=== PATIENT | female | born 1965 | race Caucasian/White ===

== ENCOUNTER 2017-08-07 17:56 | Inpatient (IN) | payer OTHER ==
[2017-08-07] MEDS ORDERED: RSI MEDICATION KIT IV ONE (18:00)
[2017-08-07] MEDS ORDERED: PROPOFOL 1,000 MG/100 ML VIAL IV ONE (18:55)
[2017-08-07 18:57] LABS: Arterial Blood Carboxyhemoglob 1.3 % (0-1.5); Blood Gas Oxyhemoglobin 98.7 % (94-97)
[2017-08-07 18:59] LABS: Urine Blood TRACE (NEG); Urine Glucose NEGATIVE (NEG); Urine Protein NEGATIVE (NEG); Urine pH 6.5 (5.0-7.0)
[2017-08-07 19:10] LABS: Absolute Lymphocytes (CBC) 0.9 K/uL (0.7-4.9); Absolute Monocytes 0.3 K/uL (0.1-1.3); Absolute Neutrophil 2.1 K/uL (1.8-8.0); Eosinophils % 4.5 % (0-4.4); Lymphocytes % 26.4 % (15.3-44.8); MCV 93.1 fL (80-100); MPV 9.4 fL (7.6-11.3); Monocytes % 9.4 % (3.3-12.3); RBC Red Blood Cell Count 3.01 M/uL (3.86-4.86)
[2017-08-07 19:12] LABS: Protime INR 1.16
[2017-08-07 19:21] LABS: Potassium 4.9 mEq/L (3.6-5.0)
[2017-08-07 19:27] LABS: Albumin 2.7 g/dL (3.2-5.5); Bilirubin Direct 0.8 mg/dL (0-0.2); Bilirubin Total 1.8 mg/dL (0.3-1.2); Protein, Total 6.4 g/dL (6.0-8.3)
--- NOTE | 2017-08-07 19:27 | RAD REPORT ---
EXAM DESCRIPTION: RAD - Chest Single View - 08/07/2017 6:46 pm CLINICAL HISTORY: Found unresponsive, intubation COMPARISON: September 2016 TECHNIQUE: AP portable chest image was obtained 1840 hours . FINDINGS: Endotracheal tube is in place T4 level top of the aortic arch. This is several cm above th e mona. Lung volumes are low. Resuscitation paddles overlie the upper right chest and lateral left abdomen. No pulmonary edema, infiltrate or acute lung parenchymal process. No failure or volume overl oad suspected. Heart size and vasculature within normal limits for portable imaging. No measurable pl eural effusion and no pneumothorax. No gross bony abnormality seen. No acute aortic findings suspecte d. IMPRESSION: Shallow inspiration film showing no pulmonary edema, failure or significant lung parench ymal process. ET tube in good position. NG tube is also in place but is more difficult to visualize.
--- NOTE | 2017-08-07 19:44 | RAD REPORT ---
EXAM DESCRIPTION: CT - Head Brain Wo Cont - 08/07/2017 7:31 pm CLINICAL HISTORY: Found unresponsive, altered mental status COMPARISON: May 2016 TECHNIQUE: Axial 5 mm thick images of the head were obtained without IV contrast. All CT scans are performed using dose optimization technique as appropriate and may include automated exposure control or mA/KV adjustment according to patient size. FINDINGS: No intracranial hemorrhage, mass, edema or shift of mid-line structures. No acute cortical based infarction. No cortical edema or sulcal effacement seen. Volume loss changes are present along with chronic ischemic change. Findings are stable but more pronounced than typically seen for a luis ent this age. No abnormal extra-axial fluid collections. Ventricles are in proportion to volume loss. Mastoid air cells are clear. There is complete opacification of the right maxillary sinus with the et hmoid and sphenoid sinus is mostly opacified. Left-side frontal sinus is opacified. No expansile or d estructive changes seen. No acute bony findings. IMPRESSION: No hemorrhage, edema or acute intracranial finding. Chronic ischemic change and atrophy changes are present stable from 2016 but greater than typically s een for a patient this age. Extensive paranasal sinus disease without expansile or destructive component.
[2017-08-07 19:46] LABS: Blood Morphology Comment NOT SEEN (NOT SEEN); Platelet Estimate DECR; Urine White Blood Cell Casts OK
[2017-08-07 19:55] LABS: Urine Bacteria LOADED /HPF (<20); Urine Culture Reflex Order REFLEXED; Urine RBC <5 /HPF (NONE SEEN)
[2017-08-07] MEDS ORDERED: LACTULOSE 20 GM/30 ML UCUP ONE (20:15)
--- NOTE | 2017-08-07 20:18 | ER ---
Nurse's Notes [facility] Name: Ernestina Mackay Age: 51 yrs Sex: Female : 1965 Arrival Date: 08/07/2017 Time: 17:59 Bed 3 Private MD: Diagnosis: Urinary tract infection, site not specified;Hepatic Encephalopathy Presentation: 08/07 18:55 Presenting complaint: EMS states: patient was found unresponsive in her room ae1 unresponsive at [facility]. Last seen normal is unknown, patient is usually A \\T\\ O x3 and ambulatory. Transition of care: [facility]. Onset of symptoms is unknown. Care prior to arrival: Medication(s) given: 0.5 mg atropine, 5 mg Versed. 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 ak1 Historical: - Allergies: 19:03 No Known Allergies; ae1 - Home Meds: 19:23 Aldactone 25 mg Oral tab 1 tab 2 times per day [Active]; ascorbic acid (vitamin C) 500 ae1 mg tab twice a day [Active]; Cymbalta 60 mg Oral cpDR 1 cap twice a day [Active]; famotidine 20 mg Oral tab 1 tab once daily [Active]; furosemide 20 mg Oral tab 1 tab 2 times per day [Active]; gabapentin 300 mg Oral cap 1 cap twice a day [Active]; Humalog sliding scale Sub-Q [Active]; lactulose 10 gram/15 mL (15 mL) Oral soln 30 mL 3 times per day [Active]; Lantus 100 unit/mL Sub-Q soln 30 units [Active]; magnesium oxide 400 mg Oral cap 800 mg twice a day [Active]; multivitamin with minerals Oral tab daily [Active]; neomycin 500 mg Oral tab 3 tabs 2 times per day [Active]; propranolol 20 mg Oral tab 1 tab 3 times per day [Active]; Tradjenta 5 mg Oral tab 1 tab once daily [Active]; Vitamin D2 50,000 unit Oral cap 1 cap once daily [Active]; - PMHx: 19:23 Anxiety; Cellulitis; CHF; Chronic pain; Cirrhosis; Depression; Diabetes - NIDDM; ae1 Hepatitis; Hypertension; insomnia; - Immunization history:: Adult Immunizations unknown. - Social history:: Smoking status: unknown. Screenin:24 Abuse screen: Denies threats or abuse. Nutritional screening: No deficits noted. ae1 Tuberculosis screening: No symptoms or risk factors identified. Fall Risk. Assessment: 17:53 General: Appears obese, unkempt, Behavior is unresponsive. Smells of urine. Pain: ae1 Unable to use pain scale. Patient is unresponsive. Neuro: Level of Consciousness is unresponsive. Cardiovascular: Heart tones S1 S2 present Patient's skin is warm and dry. Rhythm is regular. Respiratory: Airway is compromised Respiratory effort is even, unlabored, shallow, Respiratory pattern is regular, Breath sounds with crackles bilaterally. Breath sounds are diminished bilaterally. GI: Abdomen is obese, Bowel sounds present X 4 quads. : Urine is ashely urine. EENT: Oral mucosa is dry. Poor dentition noted. Derm: Skin is reddened and "chaffed" in KERLINE pelvic region. Musculoskeletal: No signs and/or symptoms reported regarding the musculoskeletal system. 17:57 Reassessment: Patient breathing is currently being assisted with ambu bag. ae1 18:03 Reassessment: Patient intubated by LEO Saini, 7.5, 23 at the teeth. ae1 19:39 Reassessment: pt tolerated CT well. pt propofol at 10mcg/kg/min to the left wrist at ak1 this time.. 20:00 Reassessment: PT ATTEMPTING TO D/C LINES AND TUBES, NOT RESPONDING TO VERBAL bp REDIRECTION. PT INTUBATED AND SEDATED, UNABLE TO PARTICIPATE IN HEALTH CARE PROCESS. BUE WRIST RESTRAINTS PLACED FOR PT SAFETY. PROVIDER AT B/S. 21:22 Reassessment: pt remained bradycardic at 46bpm on the transport to ICU. ak1 Vital Signs: 17:57 BP 98 / 57; Pulse 53; Resp 16; Pulse Ox 100% on 100% BVM; ae1 18:00 BP 101 / 71; Pulse 53; Resp 18; Pulse Ox 100% on 100% BVM; ae1 18:05 BP 135 / 74; Pulse 55; Resp 22; Pulse Ox 100% on 50% FiO2 ETT vent; ae1 19:06 BP 131 / 79; Pulse 49; Resp 12; Temp 98.7(R); Pulse Ox 100% ; Weight 90.72 kg (R); ae1 19:40 BP 131 / 75; Pulse 47; Resp 13; Pulse Ox 100% on 40% FiO2 ETT vent; Pain 0/10; ak1 20:07 BP 129 / 82; Pulse 47; Resp 15; Pulse Ox 100% on 40% FiO2 ETT vent; ak1 20:44 BP 134 / 73; Pulse 47; Resp 14; Temp 98.7(A); Pulse Ox 100% on 30% FiO2 ETT vent; Pain ak1 0/10; 19:40 Vent settings at 12 resp. 550 Tidal volume and 40% FiO2 no peep at this time. ak1 Ariane Coma Score: 20:23 Eye Response: none(1). Verbal Response: none(1). Motor Response: withdraws from jr8 pain(4). Total: 6. ED Course: 17:53 Bed in low position. Call light in reach. Side rails up X2. clinical research monitor on. Pulse ae1 ox on. NIBP on. Warm blanket given. 17:59 Patient arrived in ED. ss 18:01 Inserted saline lock: 20 gauge in left wrist, using aseptic technique. Blood collected. ae1 18:06 Assisted provider with central line placement. Set up central line tray. Triple lumen jl7 line placed in right femoral. Line placed by Roel Barnes MD Placement verified by blood return, Dressed with Tegaderm, Time-out/Briefing performed prior to start of procedure? Yes. Was handwashing/sanitizing done immediately prior to procedure? Yes. Was patient positioned to in a way to prevent air embolism? Yes. Was procedure site sterilized? Yes, with chlorhexidine. Was the site allowed to dry? Yes. Was local anesthetic and/or sedation utilized? N/A. During the procedure, did the Practitioner(s) maintain a sterile field? Yes. Were unused ports clamped during insertion? Yes. Was a 2nd qualified MD obtained after 3 unsuccessful insertion attempts? N/A. Was blood aspirated from each lumen? Yes. After the procedure, did the Practitioner(s) clean the site and apply a sterile dressing? Yes. 18:06 Inserted Central line to the right femoral by DR. Roel Barnes. ae1 18:12 [facility] Cel[facility]. jr8 18:12 Roel Barnes MD is Attending Physician. jr8 18:29 Rodriguez cath inserted, using sterile technique, 16 Fr., by al, balloon inflated, to jl7 gravity drainage, urine specimen collected. returned cloudy urine. Patient tolerated well. 18:45 Chest Single View In Process Unspecified. EDMS 18:50 Arm band placed on right wrist. jl7 18:53 Ventura Johnson, RN is Primary Nurse. ae1 19:02 Triage completed. ae1 19:05 First set of blood cultures drawn. mt 19:26 Second set of blood cultures drawn. mt 19:31 CT Head Brain wo Cont In Process Unspecified. EDMS 20:18 Zohreh Michael MD is Hospitalizing Provider. jr8 21:21 Patient admitted, IV remains in place. ak1 Restraints: 20:00 Non-Violent Restraint: Order obtained. Initiated on August 07, 2017 at 20:00 Unable to bp provide Restraint education. PT SEDATED, UNABLE TO UNDERSTAND. Actions/Behavior observed: Confused/disoriented, has impaired decision making, has decreased level of consciousness, unable to follow instructions, repeated attempts to remove/tamper lines/tubes/IV med devices \\T\\ wound dressing, repeated attempts to remove artifical airway/mechanical resp support, Less restrictive alternatives attempted: decrease environmental stimuli, placed near Nurse station, reoriented to location, medications evaluated, medicated for pain/anxiety, lines/tubes covered, Alternative interventions: Ineffective. Clinical justification for use: airway protection, line protection, patient safety, Mental status: confused, Cognition: unable to follow commands, Circulation: Within defined parameters (based on Cardiovascular assessment) Skin integrity: Within defined parameters (based on Integumentary assessment) Signs of injury related to restraint: No injuries noted. Range of Motion (ROM): performed. Hydration/Food: patient declined. Elimination/Hygiene: with urinary catheter, Restraint status: Soft wrist restraint (Right) Started. Soft wrist restraint (Left) Started. Criteria to discontinue Restraint not met. Restraint continued. Administered Medications: 18:01 Drug: Succinylcholine 70 mg {Note: By Macie Dia Charge Nurse. .} Route: IVP; Site: left ae1 wrist; 20:07 Follow up: Response: No adverse reaction ak1 18:57 Drug: Propofol 5 mcg/kg/min {Note: at 8mcg/kg/min.} Route: IV; Rate: calculated rate; ae1 Site: left wrist; 20:41 Follow up: IV Status: Infusion continued upon admission ak1 20:39 Drug: Lactulose 30 grams Volume: 45 ml; Route: PO; ak1 20:42 Follow up: Response: No adverse reaction ak1 20:39 Drug: Rocephin 1 grams Route: IV; Rate: calculated rate; Site: right femoral; ak1 20:39 Follow up: IV Status: Completed infusion ak1 Point of Care Testing: Blood Glucose: 18:03 Blood Glucose: 96 mg/dL; ae1 Ranges: Output: 19:17 Urine: 400ml (Rodriguez); Total: 400ml. ae1 Outcome: 20:18 Decision to Hospitalize by Provider. jr8 21:20 Admitted to ICU accompanied by nurse, accompanied by tech, via stretcher, room ICU7, ak1 with oxygen, on monitor, with chart, Report called to bedside report given to Maddie FOUNTAIN. 21:20 critical 21:20 Instructed on the need for admit. 21:26 Patient left the ED. ak1 Signatures: Dispatcher [employer] EDMS Macie Middleton RN RN Rafael Mathew PA PA jr8 Ashely Lopez RN RN ak1 Ventura Johnson RN RN ae1 Tana Avendaño RN RN jl7 Hilary Gallegos mt, Brian RN RN bp
--- NOTE | 2017-08-07 20:19 | EDPHYS ---
Physician Documentation [facility] Name: Ernestina Mackay Age: 51 yrs Sex: Female : 1965 Arrival Date: 08/07/2017 Time: 17:59 Bed 3 Private MD: ED Physician Roel Barnes HPI: 08/07 20:18 This 51 yrs old Female presents to ER via EMS with complaints of Unresponsive.jr8 20:18 The patient presents with decreased mental status, decreased responsiveness. Onset: The jr8 symptoms/episode began/occurred acutely, today, at an unknown time. Possible causes: low blood sugar, the patient uses insulin. Associated signs and symptoms: The patient has no apparent associated signs or symptoms. Current symptoms: In the emergency department the patient's symptoms are unchanged from the initial presentation. Patient's baseline: Neuro: alert and fully oriented, Motor: no deficits, Ambulation: walks without assistance, Speech: normal. It is unknown whether or not the patient has had similar symptoms in the past. The patient has not recently seen a physician. Patient was picked up by EMS after being called out by [facility] for patient that was unresponsive. Stated that on scene patient was bradycardic so they tried atropine and then paced patient. Stated that they gave her 5mg of versed as well. Patient upon arrival has a non paced rhythm of 58 sinus bradycardia. Decreased respiratory effort with shallow snoring respirations . 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 unknown ak1 Historical: - Allergies: 19:03 No Known Allergies; ae1 - Home Meds: 19:23 Aldactone 25 mg Oral tab 1 tab 2 times per day [Active]; ascorbic acid (vitamin C) 500 ae1 mg tab twice a day [Active]; Cymbalta 60 mg Oral cpDR 1 cap twice a day [Active]; famotidine 20 mg Oral tab 1 tab once daily [Active]; furosemide 20 mg Oral tab 1 tab 2 times per day [Active]; gabapentin 300 mg Oral cap 1 cap twice a day [Active]; Humalog sliding scale Sub-Q [Active]; lactulose 10 gram/15 mL (15 mL) Oral soln 30 mL 3 times per day [Active]; Lantus 100 unit/mL Sub-Q soln 30 units [Active]; magnesium oxide 400 mg Oral cap 800 mg twice a day [Active]; multivitamin with minerals Oral tab daily [Active]; neomycin 500 mg Oral tab 3 tabs 2 times per day [Active]; propranolol 20 mg Oral tab 1 tab 3 times per day [Active]; Tradjenta 5 mg Oral tab 1 tab once daily [Active]; Vitamin D2 50,000 unit Oral cap 1 cap once daily [Active]; - PMHx: 19:23 Anxiety; Cellulitis; CHF; Chronic pain; Cirrhosis; Depression; Diabetes - NIDDM; ae1 Hepatitis; Hypertension; insomnia; - Immunization history:: Adult Immunizations unknown. - Social history:: Smoking status: unknown. ROS: 20:23 Unable to obtain ROS due to obtunded state. jr8 Exam: 20:23 Eyes: pupils size 5 bilaterally with sluggish reaction. Lids and lashes normal. jr8 Conjunctiva and sclera are non-icteric and not injected. Cornea within normal limits. Periorbital areas with no swelling, redness, or edema. ENT: Nares patent. No nasal discharge, no septal abnormalities noted. Tympanic membranes are normal and external auditory canals are clear. Oropharynx with no redness, swelling, or masses, exudates, or evidence of obstruction, uvula midline. Mucous membranes moist. Neck: Trachea midline, no thyromegaly or masses palpated, and no cervical lymphadenopathy. Supple Cardiovascular: Sinus Bradycardia with a normal S1 and S2. No gallops, murmurs, or rubs. Normal PMI, no JVD. No pulse deficits. Respiratory: Lungs equal bilaterally. Shallow inspiratory effort with snoring respirations present Abdomen/GI: Soft with normal bowel sounds. No distension Skin: Warm, dry with normal turgor. Normal color with no rashes, no lesions, and no evidence of cellulitis. Vital Signs: 17:57 BP 98 / 57; Pulse 53; Resp 16; Pulse Ox 100% on 100% BVM; ae1 18:00 BP 101 / 71; Pulse 53; Resp 18; Pulse Ox 100% on 100% BVM; ae1 18:05 BP 135 / 74; Pulse 55; Resp 22; Pulse Ox 100% on 50% FiO2 ETT vent; ae1 19:06 BP 131 / 79; Pulse 49; Resp 12; Temp 98.7(R); Pulse Ox 100% ; Weight 90.72 kg (R); ae1 19:40 BP 131 / 75; Pulse 47; Resp 13; Pulse Ox 100% on 40% FiO2 ETT vent; Pain 0/10; ak1 20:07 BP 129 / 82; Pulse 47; Resp 15; Pulse Ox 100% on 40% FiO2 ETT vent; ak1 20:44 BP 134 / 73; Pulse 47; Resp 14; Temp 98.7(A); Pulse Ox 100% on 30% FiO2 ETT vent; Pain ak1 0/10; 19:40 Vent settings at 12 resp. 550 Tidal volume and 40% FiO2 no peep at this time. ak1 Sheldon Coma Score: 20:23 Eye Response: none(1). Verbal Response: none(1). Motor Response: withdraws from jr8 pain(4). Total: 6. Procedures: 18:14 Intubation: Ventilated with 100% NRB prior to procedure. O2 saturation prior to jr8 procedure was 98 %. Intubated orally using # 3 Joaquim blade with 7.5 mm ETT. was successful on first attempt. Ventilated with Ambu bag. ventilator. Cricoid pressure applied during procedure. Tube secured with ETT noonan measured 23 cm at lip. Placement verified by CXR, CO2 detector with (+) color change, auscultating bilateral breath sounds, O2 saturation after procedure was 100 %. Patient tolerated well. 20:15 Central Line: the site was prepped with Betadine, in sterile fashion, a triple lumen jr8 catheter was inserted, in the right femoral vein, in 1 attempts. placement was verified, by blood return, the site was dressed with Tegaderm, using sterile technique, the patient tolerated the procedure, well. MDM: 18:12 Patient medically screened. jr8 20:15 Data reviewed: vital signs, nurses notes, lab test result(s), EKG, radiologic studies, jr8 CT scan, plain films, and as a result, I will admit patient. Data interpreted: Pulse oximetry: on room air is 100 %. Interpretation: normal. Counseling: I had a detailed discussion with the patient and/or guardian regarding: the historical points, exam findings, and any diagnostic results supporting the discharge/admit diagnosis, lab results, radiology results, the need for further work-up and treatment in the hospital. Physician consultation: Zohreh Michael MD was called at 20:16, was contacted at 20:16, regarding admission, to the ICU, consult, patient's condition, and will see patient. 08/07 18:13 Order name: Urine Microscopic Only; Complete Time: 20:12 [facility] 08/07 18:13 Order name: Basic Metabolic Panel; Complete Time: 19:30 [facility] 08/07 18:13 Order name: Blood Culture Adult (2) [facility] 08/07 18:13 Order name: BNP [facility] 08/07 18:13 Order name: CBC with Diff; Complete Time: 19:47 [facility] 08/07 18:13 Order name: CPK; Complete Time: 19:30 [facility] 08/07 18:13 Order name: Lactate; Complete Time: 19:23 [facility] 08/07 18:13 Order name: LFT's; Complete Time: 19:30 [facility] 08/07 18:13 Order name: Lipase; Complete Time: 19:30 [facility] 08/07 18:13 Order name: Protime (+inr); Complete Time: 19:22 [facility] 08/07 18:13 Order name: Ptt, Activated; Complete Time: 19:22 [facility] 08/07 18:13 Order name: Troponin (emerg Dept Use Only); Complete Time: 19:30 [facility] 08/07 18:13 Order name: AMMONIA; Complete Time: 19:30 [facility] 08/07 18:13 Order name: Accucheck; Complete Time: 19:10 [facility] 08/07 18:13 Order name: Cardiac monitoring; Complete Time: 19:09 [facility] 08/07 18:13 Order name: EKG - Nurse/Tech; Complete Time: 19:09 [facility] 08/07 18:13 Order name: IV Saline Lock - Large Bore; Complete Time: 19:09 [facility] 08/07 18:13 Order name: ABG; Complete Time: 19:16 [facility] 08/07 18:14 Order name: CT Head Brain wo Cont; Complete Time: 19:45 [facility] 08/07 18:40 Order name: Chest Single View; Complete Time: 19:30 [facility] 08/07 18:44 Order name: Urine Dipstick--Ancillary (enter results) [facility] 08/07 18:44 Order name: Urine --Ancillary (enter results) [facility] 08/07 19:37 Order name: CBC Smear Scan; Complete Time: 19:47 [facility] 08/07 19:56 Order name: Urine Culture [facility] 08/07 18:13 Order name: Labs collected and sent; Complete Time: 19:09 [facility] 08/07 18:13 Order name: O2 Per Protocol; Complete Time: 19:10 [facility] 08/07 18:13 Order name: O2 Sat Monitoring; Complete Time: 19:10 [facility] 08/07 18:13 Order name: Urine Dipstick-Ancillary (obtain specimen); Complete Time: 20:48 [facility] 08/07 18:13 Order name: Glucose Level; Complete Time: 18:13 [facility] 08/07 20:21 Order name: Restraint:Non-Violent; Complete Time: 20:21 bp Administered Medications: 18:01 Drug: Succinylcholine 70 mg {Note: By Macie Dia Charge Nurse. .} Route: IVP; Site: left ae1 wrist; 20:07 Follow up: Response: No adverse reaction ak1 18:57 Drug: Propofol 5 mcg/kg/min {Note: at 8mcg/kg/min.} Route: IV; Rate: calculated rate; ae1 Site: left wrist; 20:41 Follow up: IV Status: Infusion continued upon admission ak1 20:39 Drug: Lactulose 30 grams Volume: 45 ml; Route: PO; ak1 20:42 Follow up: Response: No adverse reaction ak1 20:39 Drug: Rocephin 1 grams Route: IV; Rate: calculated rate; Site: right femoral; ak1 20:39 Follow up: IV Status: Completed infusion ak1 Point of Care Testing: Blood Glucose: 18:03 Blood Glucose: 96 mg/dL; ae1 Ranges: Critical Glucose Levels:Adult <50 mg/dl or >400 mg/dl <40 mg/dl or >180 mg/dl Disposition: 23:29 Co-signature as Attending Physician, Roel Barnes MD I agree with the assessment and kdr plan of care. Disposition: 08/07/17 20:18 Hospitalization ordered by Zohreh Michael for Inpatient Admission. Preliminary diagnosis are Urinary tract infection, site not specified, Hepatic Encephalopathy . - Bed requested for Intensive Care Unit. - Status is Inpatient Admission. ak1 - Condition is Stable. - Problem is new. - Symptoms are unchanged. UTI on Admission? Yes Signatures: Dispatcher [employer] [facility] Aylin Ramos 2 Roel Barnes MD MD Rafael Bhakta PA PA jr8 Dina Lopez RN RN ak1 Ventura Johnson RN RN ae1 Tana Avendaño RN RN jl7 Sheldon Galloway RN RN bp Corrections: (The following items were deleted from the chart) 19:01 18:54 Chest Single View+RAD.RAD.BRZ ordered. EDMS EDMS 20:17 18:54 Procalcitonin+C.LAB.BRZ ordered. EDMS EDMS
[2017-08-07] MEDS ORDERED: CEFTRIAXONE/SWI 1gm 1 GM/10 ML SYR ONE (20:20)
--- NOTE | 2017-08-07 20:33 | P.HP ---
Certification for Inpatient Patient admitted to: Inpatient With expected LOS: >2 Midnights Practitioner: I am a practitioner with admitting privileges, knowledge of patient current condition, hospital course, and medical plan of care. Services: Services provided to patient in accordance with Admission requirements found in Title 42 Section 412.3 of the Code of Federal Regulations Patient History Date of Service: 08/07/17 Reason for admission: hepatic encephalopathy History of Present Illness: Ms Mackay is a 51 years old woman with multiple medical problems including IDDM, liver cirrhosis, HTN, CRF, who was found unresponsive this afternoon in the [facility]. There are no history of fever, chills, nausea, vomiting, cough, SOB or chest pain prior to this event. When EMS arrived , found the patient bradycardic at 39 bpm (no clear rhythm), she was externally paced. Then the patient start twitching and she was medicated with benzodiazepines. At arrival to ED she was intubated for airway protection. CT head showed no acute abnormalities. Lab work remarkable for elevated ammonia 133 , UA abnormal consistent with UTI. Allergies No Known Drug Allergies Allergy (Verified 12/15/15 03:09) Unknown No Known Allergies Allergy (Uncoded 12/15/15 11:11) Unknown Home Medications: Ascorbic Acid 500 mg PO BID 06/04/16 Duloxetine [Cymbalta *] 60 mg PO BID 06/04/16 Famotidine [Pepcid*] 20 mg PO BEDTIME 06/04/16 Furosemide [Lasix*] 20 mg PO BIDL 06/04/16 Gabapentin [Neurontin*] 300 mg PO BID 06/04/16 Insulin Glargine Human [Lantus*] 30 unit SQ DAILY 06/04/16 Lactulose 30 ml PO TID 06/04/16 Linagliptin [Tradjenta] 5 mg PO DAILY 06/04/16 Magnesium Oxide [Mag 0X*] 400 mg PO BID 06/04/16 Multivitamin with Minerals [Oz Multivitamin with Mineral] 1 each PO DAILY 02/08 Neomycin Sulfate 3 tab PO BID 06/04/16 Propranolol [Inderal*] 20 mg PO TID 06/04/16 Spironolactone [Aldactone*] 25 mg PO BID 06/04/16 Insulin Lispro [Humalog] See Protocol SQ BID 09/25/16 Meropenem [Merrem] 500 mg IV Q8HR 28 Days vial 09/29/16 - Past Medical/Surgical History Diabetic: Yes -: Peripheral Neuropathy -: CHF -: HTN -: Hypothyroidism -: Diverticulosis -: Hepatitis C with Cirrhosis of liver -: GERD -: Peptic Ulcer -: Ovarian Cysts -: UTI, Recurrent -: Chronic back pain -: Anxiety/Depression -: Cardiac Cath -: -: Tonsillectomy Psychosocial/ Personal History: Lives by herself. - Family History Mother -: Heart disease, Other (see notes) Notes: takes b/p meds Father -: Diabetes - Social History Alcohol use: No CD- Drugs: No Caffeine use: No Place of Residence: [facility] Review of Systems is unable to be obtained (intubated) Physical Examination - Physical Exam General: Alert, In no apparent distress HEENT: Atraumatic, PERRLA, Mucous membr. moist/pink, Sclerae nonicteric Neck: Supple, 2+ carotid pulse no bruit, No LAD, Without JVD or thyroid abnormality Respiratory: Clear to auscultation bilaterally, Normal air movement Cardiovascular: Regular rate/rhythm, Normal S1 S2 Gastrointestinal: Normal bowel sounds, No tenderness Musculoskeletal: No tenderness Integumentary: No rashes Neurological: Normal tone, Normal reflexes 2+ Lymphatics: No axilla or inguinal lymphadenopathy - Studies Laboratory Data (last 24 hrs) 08/07/17 17:57: PT 13.7 H, INR 1.16, APTT 37.6 H 08/07/17 17:57: WBC 3.5 L, Hgb 9.6 L, Hct 28.0 L, Plt Count 50 L* 08/07/17 17:47: Sodium 140, Potassium 4.9, BUN 35 H, Creatinine 2.92 H, Glucose 76, Total Bilirubin 1.8 H, AST 71 H, ALT 38, Alkaline Phosphatase 187 H, Lipase 85 H Assessment and Plan - Problems (Diagnosis) (1) UTI (urinary tract infection) Onset Date: 06/07/16 Current Visit: No Status: Acute Qualifiers: Urinary tract infection type: acute cystitis Hematuria presence: without hematuria Qualified Code(s): N30.00 - Acute cystitis without hematuria (2) HTN (hypertension) Onset Date: 09/27/16 Current Visit: No Status: Chronic Qualifiers: Hypertension type: essential hypertension (3) Hepatic encephalopathy syndrome Current Visit: No Status: Chronic (4) Hepatitis C Onset Date: 06/07/16 Current Visit: No Status: Chronic Qualifiers: Viral hepatitis chronicity: chronic Hepatic coma status: without hepatic coma Qualified Code(s): B18.2 - Chronic viral hepatitis C (5) Liver cirrhosis Onset Date: 02/16/16 Current Visit: No Status: Chronic Qualifiers: Hepatic cirrhosis type: unspecified hepatic cirrhosis Ascites presence: without ascites Qualified Code(s): K74.60 - Unspecified cirrhosis of liver (6) Thrombocytopenia Onset Date: 06/07/16 Current Visit: No Status: Chronic (7) Type II diabetes mellitus, uncontrolled Onset Date: 02/16/16 Current Visit: No Status: Chronic Qualifiers: Diabetes mellitus exterminator termite insulin use: with exterminator termite use Diabetes mellitus complication status: without complication Qualified Code(s): E11.65 - Type 2 diabetes mellitus with hyperglycemia; Z79.4 - buttermaker helper (current) use of insulin - Plan Ms Mackay will be admitted to ICU, intubated due to hepatic encephalopathy. She is still baradycardic, at about 49 bpm, rhythm is sinus, without ST-T abnormalities. Trop I is negative at the moment. She is on propranolol 20 mg TID , which is probably responsible for her bradycardia. Will order laculose per NGT , will start with 20 mg QID, will titrate the dose according her clinical response. Consult Dr Godinez for vent mananagement. Start Rocephin for UTI. - Advance Directives Does patient have a Living Will: No Does patient have a Durable POA for Healthcare: No - Code Status/Comfort Care Code Status Assessed: Yes Code Status: Full Code Critical Care: Yes (30 minutes spent in critical care management.)
[2017-08-07] MEDS ORDERED: NA CHLORIDE 0.9% 1,000 ML IV SCH (21:00)
[2017-08-07] MEDS: LACTULOSE 20 GM/30 ML UCUP NG SCH (21:00)
[2017-08-07] MEDS ORDERED: D50W 25 GM/50 ML SYRINGE IV ONE (23:44)
[2017-08-07] MEDS: D50W 25 GM/50 ML SYRINGE IV PRN (23:45)
[2017-08-08] MEDS ORDERED: D5 0.9 NS 1,000 ML IV ONE (02:57)
[2017-08-08] MEDS: D50W 25 GM/50 ML SYRINGE IV PRN (03:00)
[2017-08-08] MEDS: D5 0.9 NS 1,000 ML IV SCH ×3 (03:00→23:05)
[2017-08-08] MEDS ORDERED: PROPOFOL 1,000 MG/100 ML VIAL IV PRN (04:34)
[2017-08-08] MEDS ORDERED: FENTANYL CITR 100 MCG/2 ML IV PRN (04:42)
[2017-08-08] MEDS ORDERED: MIDAZOLAM HCL 2 MG/2 ML INJ IV PRN (04:42)
[2017-08-08 05:54] LABS: Arterial Blood Carboxyhemoglob 1.8 % (0-1.5); Blood Gas Oxyhemoglobin 95.2 % (94-97); Blood O2 Saturation 98.7 % (92-98.5)
[2017-08-08] MEDS: INSULIN -REGULAR HUMAN 50 UNIT/0.5 ML ML SQ SCH ×5 (06:00→22:38)
--- NOTE | 2017-08-08 07:37 | EKG ---
Test Date: 2017-08-07 Test Time: 18:48:32 Office Services Manager: MARINO MEASUREMENT RESULTS: Intervals: Rate: 54 [place]: 162 QRSD: 72 QT: 502 QTc: 476 [place]: P: 93 NJ: 162 QRS: -11 T: 21 INTERPRETIVE STATEMENTS: Sinus bradycardia Otherwise normal ECG Compared to ECG 09/25/2016 08:13:27 Sinus rhythm no longer present Electronically Signed On 08-08-17 07:37:20 CDT by Cristiano Stevenson
[2017-08-08] MEDS ORDERED: CEFTRIAXONE 1 GM/NS 50 ML 1 GM/50 ML BAG IV SCH (09:00)
[2017-08-08] MEDS ORDERED: SUCCINYLCHOLINE 20 MG/ML (10 ML) IV ONE (09:00)
[2017-08-08] MEDS: LACTULOSE 20 GM/30 ML UCUP NG SCH ×2 (10:04→14:14)
[2017-08-08] MEDS: CEFTRIAXONE/SWI 1gm 1 GM/10 ML SYR IV SCH (10:04)
[2017-08-08] MEDS: FAMOTIDINE 20 MG/2 ML VIAL IV SCH (10:04)
--- NOTE | 2017-08-08 11:47 | PN ---
Date of Progress Note: 08/08/2017 Subjective: The patient is seen and examined, chart reviewed, and case discussed with RN and Dr. Alanis mc. The patient was intubated due to altered mental status to protect her airway. The patient is responsive, likely to be extubated this afternoon. Review of Systems: Limited due to the patient's medical condition. Medications: Reviewed. Physical Examination: Vital Signs: Temperature 98, heart rate 48, blood pressure 120/81, respirations 16, O2 100% on ET tu be. General: Awake, alert, following commands. Intubated, weaning off sedation. CV: S1 and S2. No murmurs. Sinus bradycardia. Peripheral pulses present. Respiratory: Moving air well bilaterally. No wheezing. Abdomen: Soft, nontender, and nondistended. Positive bowel sounds. Extremities: No clubbing, cyanosis, edema. Neurologic: Nonfocal. Laboratory Data: Pending. ABG; pH 7.43, pCO2 30, pO2 131, bicarb 19. Blood culture is pending. Ur ine culture shows 100,000 colony-forming units and 3+ gram-negative rods. Assessment And Plan: A 51-year-old female with: 1.Acute respiratory failure. The patient is currently intubated, will be extubated later this after noon. Appreciate Dr. Godinez's input. 2.Acute hepatic encephalopathy. Ammonia level is elevated. Continue lactulose and monitor ammonia level. 3.Urinary tract infection, acute cystitis without hematuria. Urine culture growing gram-negative ro ds. We will continue antibiotics and we will follow up on ID and sensitivity. 4.Essential hypertension, stable. We will hold beta-karen due to bradycardia. 5.History of hepatitis C without coma, chronic. 6.Liver cirrhosis secondary to hepatitis use without ascites. 7.Thrombocytopenia, likely related to liver dysfunction. 8.Type 2 diabetes mellitus with long-term use of insulin without any complications. We will continu e sliding scale insulin. Resume home medications. 9.History of congestive heart failure, unknown ejection fraction, chronic, compensated. 10.Peripheral neuropathy. 11.Hypothyroidism. Continue Synthroid. 12.Gastroesophageal reflux disease. Continue PPI. 13.History of anxiety and depression, stable. Plan: We will continue to wean off the ventilator as tolerated, as per Pulmonology. Hold propranolo l due to bradycardia. Monitor ammonia level. Continue to follow up on urine culture, ID, and sensit ivity. /JOSEL Voice ID: [id number] Report ID: [id number]
[2017-08-08] MEDS ORDERED: PROPRANOLOL HCL 10 MG TAB PO SCH (14:00)
[2017-08-08] MEDS: GABAPENTIN 300 MG CAP PO SCH ×2 (14:14→21:03)
[2017-08-08] MEDS: LACTULOSE 20 GM/30 ML UCUP PO SCH ×2 (17:15→21:03)
[2017-08-08] MEDS: FUROSEMIDE 20 MG TABLET PO SCH (17:15)
[2017-08-08] MEDS: ARIPiprazole 5 MG TAB PO SCH (21:01)
[2017-08-08] MEDS: SPIRONOLACTONE 25 MG TABLET PO SCH (21:02)
[2017-08-08] MEDS: BUPROPRION HCL S.R. 150MG TAB PO SCH (21:03)
[2017-08-09 05:23] LABS: Absolute Lymphocytes (CBC) 0.9 K/uL (0.7-4.9); Absolute Monocytes 0.5 K/uL (0.1-1.3); Absolute Neutrophil 3.3 K/uL (1.8-8.0); Eosinophils % 3.3 % (0-4.4); Hematocrit 28.6 % (36.0-45.0); Lymphocytes % 18.7 % (15.3-44.8); MCH 31.3 pg (27.0-35.0); MPV 9.4 fL (7.6-11.3); Monocytes % 10.1 % (3.3-12.3); RBC Red Blood Cell Count 3.01 M/uL (3.86-4.86)
[2017-08-09 05:44] LABS: Albumin 2.5 g/dL (3.2-5.5); Bilirubin Total 2.3 mg/dL (0.3-1.2); Potassium 3.8 mEq/L (3.6-5.0); Protein, Total 6.2 g/dL (6.0-8.3)
[2017-08-09] MEDS: INSULIN -REGULAR HUMAN 50 UNIT/0.5 ML ML SQ SCH ×4 (07:30→20:47)
[2017-08-09] MEDS ORDERED: ACETAMINOPHEN 500 MG TAB PO ONE (08:28)
--- NOTE | 2017-08-09 08:31 | P.CNS ---
Date of Consult: 08/08/17 Reason for Consult: Respiratory failure Chief Complaint: hepatic encephalopathy History of Present Illness: Patient is 51 years of age with a history of end-stage liver disease admitted with altered mental status was intubated transferred to the ICU the time of my evaluation patient was alert responsive cooperative Gerber agitated wanted to be extubated is a possibility of seizures patient tolerate the spontaneous breathing trial and was later extubated Allergies No Known Drug Allergies Allergy (Verified 08/07/17 21:38) Unknown Home Medications: Ascorbic Acid 500 mg PO BID 06/04/16 Famotidine [Pepcid*] 20 mg PO BEDTIME 06/04/16 Furosemide [Lasix*] 20 mg PO BIDL 06/04/16 Gabapentin [Neurontin*] 300 mg PO BID 06/04/16 Lactulose 30 ml PO TID 06/04/16 Magnesium Oxide [Mag 0X*] 2 tab PO BID 06/04/16 Multivitamin with Minerals [Oz Multivitamin with Mineral] 1 tab PO DAILY 06/04 Neomycin Sulfate 3 tab PO BID 06/04/16 Propranolol [Inderal*] 20 mg PO TID 06/04/16 Spironolactone [Aldactone*] 25 mg PO BID 06/04/16 Insulin Lispro [Humalog] See Protocol SQ BID 09/25/16 Aripiprazole [Aripiprazole] 10 mg PO BEDTIME 08/07/17 Bupropion HCl [Bupropion HCl Sr] 1 tab PO BID 08/07/17 Gabapentin [Gabapentin] 1 tab PO BEDTIME 08/07/17 Insulin Detemir [Levemir] 25 units SQ DAILY WITH BREAKFAST 08/07/17 Omeprazole Magnesium [Prilosec Otc] 20 mg PO DAILY 08/07/17 Trazodone [Desyrel] 25 mg PO BEDTIME 08/07/17 - Past Medical/Surgical History Diabetic: Yes -: Peripheral Neuropathy -: CHF -: HTN -: Hypothyroidism -: Diverticulosis -: Hepatitis C with Cirrhosis of liver -: GERD -: Peptic Ulcer -: Ovarian Cysts -: UTI, Recurrent -: Chronic back pain -: Anxiety/Depression -: Cardiac Cath -: -: Tonsillectomy Psychosocial/ Personal History: Lives by herself. - Family History Mother Medical History: Heart disease, Other (see notes) Notes: takes b/p meds Father Medical History: Diabetes - Social History Smoking Status: Unknown if ever smoked Alcohol use: No CD- Drugs: No Caffeine use: No Place of Residence: [facility] Review of Systems is unable to be obtained Physical Examination Temp Pulse Resp BP Pulse Ox 97.1 F 76 16 123/75 99 08/09/17 04:00 08/09/17 07:00 08/09/17 07:00 08/09/17 07:00 08/09/17 07:00 General: Alert, Moderate distress Neck: Supple Respiratory: Clear to auscultation bilaterally Cardiovascular: No edema, Regular rate/rhythm, Normal S1 S2 - Problems (1) Hepatic encephalopathy Current Visit: Yes Status: Acute Plan: Patient is 51 years of age admitted with altered mental status hepatic encephalopathy initially intubated and extubated labs reviewed patient has thrombocytopenia consistent with the liver dizzy renal function is worse chest x -rays clear labs all reviewed patient is on lactulose patient has E coli in the urine sensitive to ceftriaxone
[2017-08-09] MEDS: INSULIN DETEMIR 100 UNIT/1 ML INSULIN SQ SCH (08:51)
[2017-08-09] MEDS: SPIRONOLACTONE 25 MG TABLET PO SCH ×2 (08:53→20:46)
[2017-08-09] MEDS: FUROSEMIDE 20 MG TABLET PO SCH ×2 (08:54→17:02)
[2017-08-09] MEDS: GABAPENTIN 300 MG CAP PO SCH ×3 (08:54→20:46)
[2017-08-09] MEDS: LACTULOSE 20 GM/30 ML UCUP PO SCH ×4 (08:55→20:46)
[2017-08-09] MEDS: CEFTRIAXONE/SWI 1gm 1 GM/10 ML SYR IV SCH (09:03)
[2017-08-09] MEDS: D5 0.9 NS 1,000 ML IV SCH (09:03)
[2017-08-09] MEDS: BUPROPRION HCL S.R. 150MG TAB PO SCH ×2 (09:03→21:00)
[2017-08-09] MEDS: FAMOTIDINE 20 MG/2 ML VIAL IV SCH (09:04)
[2017-08-09] MEDS ORDERED: D5 0.45 NS 1,000 ML IV SCH (12:00)
--- NOTE | 2017-08-09 12:31 | RAD REPORT ---
EXAM DESCRIPTION: US - Renal Ultrasound-Complete - 08/09/2017 12:16 pm CLINICAL HISTORY: Elevated creatinine. COMPARISON: 12/18/2015 FINDINGS: Both kidneys are normal in size, shape and echotexture. The right kidney measures 10.7 x 5.7 x 5.5 cm. No hydronephrosis, focal mass or perinephric fluid. The left kidney measures 12.3 x 6.4 x 4.5 cm. No hydronephrosis, focal mass or perinephric fluid. IMPRESSION: Unremarkable renal sonogram.
--- NOTE | 2017-08-09 13:45 | PN ---
Date of Progress Note: 08/09/2017 Subjective: The patient is seen and examined, chart reviewed, and case discussed with RN. The patie nt extubated yesterday, doing well today on room air. The patient still somewhat confused. Tolerati ng diet well. Review of Systems: Negative except as above. Medications: Reviewed. Physical Examination: Vital Signs: Temperature 97.1, heart rate 76, respirations 15, blood pressure 123/75, O2 99% on room air. General: Awake, alert, oriented x3, obese female, somewhat ill-appearing. CV: S1, S2. No murmurs. Regular rate and rhythm. Peripheral pulses present. Respiratory: Moving air well bilaterally. No wheezing. Gastrointestinal: Abdomen is soft, nontender, nondistended. Positive bowel sounds. Extremities: No clubbing, cyanosis, or edema. Neurologic: Nonfocal. Laboratory Data: Sodium 139, potassium 3.8, chloride 116, CO2 18, BUN 32, creatinine 2.78, glucose 1 10, total bilirubin 2.3, calcium 8.5. AST 84, ALT 41, alkaline phosphatase 155, ammonia 70, albumin 2.5. WBC 5, H and H 9.4 and 28.6, platelets 55, neutrophils 66%. Urine culture growing E. coli sens itive to Rocephin. Blood cultures, no growth to date. Assessment And Plan: A 51-year-old female with: 1.Acute respiratory failure. The patient now extubated. We will move her out of ICU. 2.Acute hepatic encephalopathy. Ammonia level is improving. We will continue lactulose and monitor . 3.Urinary tract infection, acute cystitis without hematuria. Urine culture shows Escherichia coli, sensitive to Rocephin. 4.Protein-calorie malnutrition, moderate. Albumin is 2.5. 5.Essential hypertension, stable. Beta-karen on hold due to bradycardia. 6.History of hepatitis C without coma, chronic. 7.Liver cirrhosis secondary to hepatitis C without ascites. 8.Thrombocytopenia. We will continue to monitor secondary to liver dysfunction. No acute bleed. 9.Diabetes mellitus type 2 with long-term use of insulin without any complications. Continue slidin g scale insulin. 10.History of congestive heart failure, unknown EF, compensated diastolic dysfunction, last EF of 70 %. 11.Peripheral neuropathy. 12.Hypothyroidism. Continue Synthroid. 13.Gastroesophageal reflux disease. Continue PPI. 14.History of anxiety and depression, stable. 15.Acute on chronic kidney injury. We will consult Nephrology. Plan: Step down from ICU. Physical therapy evaluation. Nephrology consultation. Social Work consu lted to have the patient return to senior living and discharge planning in the next 24-48 hours. /VANIA Voice ID: [id number] Report ID: [id number]
[2017-08-09 18:03] LABS: UR CREAT 27.5 mg/dL
[2017-08-09 18:23] LABS: Urine Appearance CLOUDY; Urine Bilirubin NEGATIVE (NEG); Urine Blood 3+ (NEG); Urine Color YELLOW; Urine Glucose NEGATIVE (NEG); Urine Protein NEGATIVE (NEG)
[2017-08-09 18:30] LABS: Urine Bacteria LOADED /HPF (<20); Urine Culture Reflex Order REFLEXED; Urine RBC 20-50 /HPF (NONE SEEN)
[2017-08-09] MEDS: D5 0.45 NS 1,000 ML IV SCH ×2 (18:36→22:08)
[2017-08-09] MEDS: ARIPiprazole 5 MG TAB PO SCH (20:45)
[2017-08-10] MEDS: D5 0.45 NS 1,000 ML IV SCH ×2 (05:00→09:57)
[2017-08-10 06:23] LABS: Absolute Monocytes 0.5 K/uL (0.1-1.3); Absolute Neutrophil 2.8 K/uL (1.8-8.0); Eosinophils % 5.7 % (0-4.4); Hematocrit 26.5 % (36.0-45.0); Lymphocytes % 22.3 % (15.3-44.8); MCH 31.8 pg (27.0-35.0); MCV 93.5 fL (80-100); MPV 9.7 fL (7.6-11.3); Monocytes % 10.5 % (3.3-12.3); RBC Red Blood Cell Count 2.83 M/uL (3.86-4.86)
[2017-08-10 06:41] LABS: Albumin 2.4 g/dL (3.2-5.5); Bilirubin Total 2.1 mg/dL (0.3-1.2); Potassium 3.7 mEq/L (3.6-5.0)
[2017-08-10] MEDS: INSULIN -REGULAR HUMAN 50 UNIT/0.5 ML ML SQ SCH ×4 (07:30→21:00)
[2017-08-10] MEDS ORDERED: POTASSIUM CL SA 10 MEQ TAB PO ONE (08:00)
[2017-08-10] MEDS: CEFTRIAXONE/SWI 1gm 1 GM/10 ML SYR IV SCH (08:52)
[2017-08-10] MEDS: LACTULOSE 20 GM/30 ML UCUP PO SCH ×4 (08:53→21:17)
[2017-08-10] MEDS: GABAPENTIN 300 MG CAP PO SCH ×3 (08:53→21:18)
[2017-08-10] MEDS: FUROSEMIDE 20 MG TABLET PO SCH (08:53)
[2017-08-10] MEDS: FAMOTIDINE 20 MG/2 ML VIAL IV SCH (08:53)
[2017-08-10] MEDS: INSULIN DETEMIR 100 UNIT/1 ML INSULIN SQ SCH (08:54)
[2017-08-10] MEDS: SPIRONOLACTONE 25 MG TABLET PO SCH ×2 (08:54→21:17)
[2017-08-10] MEDS: BUPROPRION HCL S.R. 150MG TAB PO SCH ×2 (09:00→21:00)
--- NOTE | 2017-08-10 10:31 | CON ---
Date of Consultation: 08/09/2017 Additional Consulting Physician: Richard Valencia M.D. Reason For Consultation: Elevated BUN and creatinine, fluid management. History Of Present Illness: This is a pleasant 51-year-old female, assisted resident with signif icant past medical history of cirrhosis, unknown etiology; hypertension; congestive heart failure; hy pothyroidism; chronic kidney disease; baseline creatinine around 1.3 to 1.4. The patient was in her regular state of health, found to have altered mental status in the assisted. For that reason, b rought to the hospital and found to have bradycardia and elevated ammonia. The patient was intubated for airway protection. CT was negative. The patient started on lactulose and primary wo rkup showed elevated BUN and creatinine. For that reason, we have been consulted. Reviewing the rec ord from the assisted, the patient has been on gabapentin with spironolactone. There is no other insulting medication. There is no contrast. The patient denied taking any nonsteroidal. The patient does not know etiology of her cirrhosis. Past Medical History: Include, 1.Diabetes. 2.CHF. 3.Hypothyroidism. 4.GERD. 5.Peptic ulcer disease. 6.Ovarian cyst. 7.Chronic kidney disease. Baseline creatinine back in 2017 in September. Creatinine 1.02. GFR of 58. Past Surgical History: Include , tonsillectomy, cardiac cath. Home Medications: Include vitamin C, Pepcid, Lasix 20 b.i.d., lactulose, insulin, magnesium, propran olol, spironolactone, and meropenem. Family History: Positive for diabetes and hypertension. Social History: Denies smoking. Denies drinking. Denies drug abuse. Review of Systems: Head and Neck: No red eye. No ear pain. GI: No nausea. No vomiting. Has abdominal distention. : No polyuria. No dysuria. No hematuria. 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 Respiratory: No shortness of breath. Cardiovascular: Has leg swelling. Endocrine: No polydipsia. Skin: No rash. Neuro: Has altered mental status. Musculoskeletal: Generalized fatigue. Physical Examination: Vital Signs: When I saw the patient, blood pressure of 148/72, pulse of 68. Chest: Clear to auscultation. Heart: S1, S2. Regular. Abdomen: Soft, possible ascites. Extremities: +1 edema. Laboratory Data: Sodium 139, potassium 3.8, bicarb 18, chloride 116, BUN 32, creatinine 2.7, calcium 8.5. BUN is trending down to 70. LFT normalized. Urinalysis; specific gravity of 1.010, +3 leukoc yte, 50 of , 50 of rbc. Culture growing E. coli in the urine. Resistant to quinolones. S ensitive to Macrobid and meropenem. Assessment And Plan: 1.Acute kidney injury secondary to prerenal, nonoliguric. No hyperkalemia. Doubt to be hepatorenal given the improvement in the condition significantly. I am going to go ahead and send for full work up. Given the proteinuria and the hepatitis, we will send for serology and we will quantify the urin e. 2.Urinary tract infection. To rule out complicated urinary tract infection. Continue meropenem. W e will follow up with the ultrasound. 3.Hypertension, controlled, optimal. Continue current medication. We will follow up. 4.Hepatic encephalopathy. Continue lactulose as by primary. 5.Anasarca. Continue diuresis. We will send for protein creatinine and TSH. 6.Case discussed with the patient who verbalized understanding. Discussed with Dr. Valencia. JAYLA/VANIA Voice ID: [id number] Report ID: [id number]
[2017-08-10] MEDS: NA CHLORIDE 0.9% 1,000 ML IV SCH ×2 (12:00→12:36)
[2017-08-10 14:57] LABS: UR POTASSIUM 18.7 mEq/L (25-120)
[2017-08-10 15:10] LABS: Urine Appearance CLOUDY; Urine Bilirubin NEGATIVE (NEG); Urine Blood NEGATIVE (NEG); Urine Color YELLOW; Urine Glucose NEGATIVE (NEG); Urine Protein NEGATIVE (NEG)
[2017-08-10 15:26] LABS: Urine Microscopic Reflex ORDER UMIC
[2017-08-10 16:56] LABS: Urine Bacteria <20 /HPF (<20); Urine RBC <5 /HPF (NONE SEEN)
[2017-08-10 16:57] LABS: Urine Amorphous Sediment 2+ /HPF (NONE SEEN); Urine Culture Reflex Order NOT NEEDED
--- NOTE | 2017-08-10 19:22 | PN ---
Date of Progress Note: 08/10/2017 Subjective: The patient seen and examined, chart reviewed, and case discussed with RN and Dr. Cristian lainez. The patient is somewhat tearful today and concerned about the fact that she is getting weaker wh ile in the hospital. Has not really gotten out of bed. The patient states that, she is usually ambu late ambulatory with a walker. Review of Systems: Negative except as above. Medications: Reviewed. Physical Examination: Vital Signs: Temperature 97.4, heart rate 70, blood pressure 144/76, respirations 16, O2 100% on dora m air. General: Awake, alert, oriented x3, in some mild distress. Obese female. BMI 30. CV: S1, S2. Peripheral pulses present. Regular rate and rhythm. No murmurs. Respiratory: moving air well bilaterally. No wheezing. Gastrointestinal: Soft abdomen,Nontender, nondistended. Positive bowel sounds. Extremities: No clubbing, cyanosis, or edema. Neuro: nonfocal. Laboratory Data: Sodium 135, potassium 3.7, chloride 109, CO2 20, BUN 33, creatinine 3, glucose 106, calcium 8.3, total bilirubin 2.1, AST 70, ALT 38, alkaline phosphatase 151, and albumin 2.4. WBC 4. 6, H and H 9, 26.5, platelets 52, and neutrophils 60. Urine culture shows Escherichia coli. Blood c ultures no growth to date. Repeat urine culture shows 3+ gram-negative rods. Assessment: A 51-year-old female with. 1.Acute respiratory failure, now extubated, resolved, on room air. 2.Acute hepatic encephalopathy. Ammonia levels trending down. We will continue to monitor. Contin ue lactulose. The patient's mental status is significantly better. 3.Urinary tract infection, acute cystitis without hematuria. Urine culture showing Escherichia coli , sensitive to Rocephin. We will continue IV antibiotics. 4.Protein-calorie malnutrition, moderate. Albumin 2.4. 5.Essential hypertension, stable. Beta karen has been held due to the bradycardia. 6.History of hepatitis C without coma, chronic. 7.Liver cirrhosis secondary to hepatitis C without ascites. 8.Thrombocytopenia, secondary to liver cirrhosis. No acute bleeding. We will continue to monitor. 9.Diabetes mellitus type 2, with long-term use of insulin without any complications. We will contin ue sliding scale insulin. 10.History of congestive heart failure, diastolic dysfunction, ejection fraction of 70%, compensated . 11.Peripheral neuropathy. 12.Hypothyroidism, Synthroid. 13.Gastroesophageal reflux disease without esophagitis. Continue PPI. 14.History of anxiety and depression. The patient is somewhat emotionally labile. We will continue medications. 15.Acute on chronic kidney injury. Nephrology has been consulted. Creatinine trending up. We will continue with IV fluids. Plan: PT eval, likely discharge in the next 24 to 48 hours once cleared by Nephrology. SA/MODL Voice ID: [id number] Report ID: [id number]
[2017-08-10] MEDS: ARIPiprazole 5 MG TAB PO SCH (21:16)
[2017-08-11] MEDS ORDERED: GABAPENTIN 300 MG CAP PO SCH (01:41)
[2017-08-11 05:49] LABS: Absolute Lymphocytes (CBC) 1.1 K/uL (0.7-4.9); Absolute Monocytes 0.4 K/uL (0.1-1.3); Absolute Neutrophil 2.8 K/uL (1.8-8.0); Basophils % 0.9 % (0-1.3); Lymphocytes % 22.9 % (15.3-44.8); MCH 31.5 pg (27.0-35.0); MCV 93.2 fL (80-100); MPV 9.7 fL (7.6-11.3); Monocytes % 9.4 % (3.3-12.3)
--- NOTE | 2017-08-11 06:04 | PN ---
Date of Progress Note: 08/10/2017 Subjective: The patient is doing well. No nausea. No vomiting. No shortness of breath. Physical Examination: Vital Signs: When I saw the patient, blood pressure of 165/86, pulse of 70, and afebrile. Chest: Clear to auscultation. Heart: S1 and S2. Regular. Abdomen: Soft and nontender. Extremities: Venous stasis bilateral. Laboratory Data: WBC 4.6, H and H 9/26.5, and platelets 52. Sodium 135, potassium 3.7, bicarb 20, B UN 33, creatinine 3, and calcium 8.3. Current Medications: Include; 1.Lasix. 2.Lactulose. 3.Bupropion. 4.Gabapentin. 5.Midazolam. 6.Pepcid. 7.Zofran. Assessment And Plan: 1.Acute kidney injury, questionable to be hepatorenal/prerenal, over-diuresed. I am going to go ahe ad and discontinue Lasix and start the patient on IV hydration, and we will monitor. I am going to g o ahead and send for urine electrolytes to evaluate her may the patient need fluid expansion, and we will follow up. 2.Altered mental status secondary to hepatic encephalopathy. I will go ahead and decrease her gabapentin given her current kidney function and continue lactulose. JAYLA/VANIA Voice ID: [id number] Report ID: [id number]
[2017-08-11 06:15] LABS: Albumin 2.4 g/dL (3.2-5.5); Bilirubin Total 1.7 mg/dL (0.3-1.2); Ferritin 559.3 ng/ml (11.0-306.8); Folic Acid, (Folate) 13.4 ng/ml (>5.21); Magnesium 1.6 mg/dL (1.8-2.5); Phosphorus 3.2 mg/dL (2.5-4.3); Protein, Total 6.2 g/dL (6.0-8.3); Thyroid Stimulating Hormone 4.13 uIU/mL (0.34-5.60)
[2017-08-11] MEDS ORDERED: MAGNESIUM SULFATE 1 gm IVPB 1 GM/100 ML BAG IV ONE (07:15)
[2017-08-11] MEDS: INSULIN -REGULAR HUMAN 50 UNIT/0.5 ML ML SQ SCH ×4 (07:30→21:00)
[2017-08-11] MEDS: INSULIN DETEMIR 100 UNIT/1 ML INSULIN SQ SCH (08:00)
[2017-08-11] MEDS: CEFTRIAXONE/SWI 1gm 1 GM/10 ML SYR IV SCH (09:00)
[2017-08-11] MEDS ORDERED: Meropenem 500 MG VIAL IV SCH (11:00)
[2017-08-11] MEDS: ONDANSETRON 4 MG/2 ML VIAL IV PRN (11:51)
[2017-08-11] MEDS: LACTULOSE 20 GM/30 ML UCUP PO SCH ×5 (11:51→20:58)
[2017-08-11] MEDS: NYSTATIN PWDR 100000 UNIT/GM TOP SCH ×2 (11:51→21:01)
[2017-08-11] MEDS: FAMOTIDINE 20 MG/2 ML VIAL IV SCH (11:51)
[2017-08-11] MEDS: SPIRONOLACTONE 25 MG TABLET PO SCH ×2 (11:53→20:59)
[2017-08-11] MEDS: NA CHLORIDE 0.9% 1,000 ML IV SCH (11:53)
[2017-08-11] MEDS: GABAPENTIN 100 MG CAP PO SCH ×2 (11:53→18:10)
[2017-08-11] MEDS: BUPROPRION HCL S.R. 150MG TAB PO SCH ×2 (11:54→21:00)
[2017-08-11] MEDS: Meropenem 500 MG in NA CHLORIDE 0.9% 100 ML IV SCH ×2 (14:24→21:00)
--- NOTE | 2017-08-11 17:55 | PN ---
Date of Progress Note: 08/11/2017 History: The patient seen and examined. Chart reviewed. Case discussed with RN. The patient state s that she is still having pain in her abdomen. The patient is a poor historian, overall. The patie nt got up without informing the nurses last night and pulled a part of the femoral line, which had to be discontinued. Review of Systems: Negative except the HPI. Medications: Reviewed. Physical Examination: Vital Signs: Temperature 97.7, heart rate 84, blood pressure 103/64, respirations 20, O2 99% on room air. General: Awake, alert, oriented x3, in some mild distress. Ill-appearing female, obese, BMI is 30. CV: S1, S2. Regular rate and rhythm and rhythm. Peripheral pulses present. Respiratory: Moving air well bilaterally. No wheezing. Gastrointestinal: Abdomen is soft, nontender, nondistended. Positive bowel sounds. No guarding or rigidity. Extremities: No clubbing, cyanosis, or edema. Neuro: Nonfocal. Laboratory Data: Sodium 134, potassium 4, chloride 110, CO2 19, BUN 33, creatinine 3.06, glucose 102 , calcium 8.5, phosphorus 3.2, magnesium 1.6. Iron 89. Total iron binding capacity 204, transferrin 46, ferritin 559, total bilirubin 1.7, ammonia 140, albumin 2.4, vitamin B12 79, folate 13.4, TSH 4. 13. WBC 4.6, H and H 9 and 27, platelets 56. Repeat urine culture showing Escherichia coli that is now ESBL producing. Blood cultures, no growth. Assessment: A 51-year-old female with: 1.Acute respiratory failure, resolved. 2.Acute hepatic encephalopathy. Ammonia level now elevated. We will continue with the lactulose to increase dose. Mental status however is still better. 3.Urinary tract infection, acute cystitis without hematuria secondary to extended-spectrum beta-lact amase producing Escherichia coli. We will switch IV antibiotics to meropenem. The patient will need a PICC line and a minimum of 2-4 weeks of meropenem. 4.Protein-calorie malnutrition, severe. Albumin 2.4. 5.Essential hypertension. We will continue medications. Beta-karen held due to bradycardia. Hea rt rate now improved to the 70s and 80s. May be able to resume low-dose beta-karen. 6.History of hepatitis C without coma, chronic. 7.Liver cirrhosis secondary to hepatitis C without ascites. 8.Thrombocytopenia secondary to liver cirrhosis. No acute bleed. Continue to monitor. 9.Diabetes mellitus type 2 with long-term use of insulin without any complications. Continue slidin g scale insulin. 10.History of congestive heart failure, diastolic dysfunction, EF 70%, compensated. 11.Peripheral neuropathy. 12.Hypothyroidism, on Synthroid. 13.Gastroesophageal reflux disease without esophagitis. Continue PPI. 14.History of anxiety and depression. Continue medications. 15.Acute on chronic kidney injury. Kidney function trending up. Nephrology on board. Continue IV fluid hydration. Workup is underway. Plan: Discharge planning. The patient will need a PICC line and set up for IV meropenem for 2-4 wewil mullen. /VANIA Voice ID: [id number] Report ID: [id number]
[2017-08-11] MEDS: ARIPiprazole 5 MG TAB PO SCH (21:01)
[2017-08-11 23:59] VITALS: O2SAT 96
[2017-08-12] MEDS: ONDANSETRON 4 MG/2 ML VIAL IV PRN (00:16)
--- NOTE | 2017-08-12 02:50 | PN ---
Date of Progress Note: 08/11/2017 Chief Complaint: Acute kidney injury. Subjective: Acute kidney injury, nonoliguric secondary to possible hepatorenal syndrome with prerenal azotemia. The patient was started on diuretics, subsequently diuretic was stopped due to the fact that the patient developed progressively worse renal dysfunction and IV fluids were started. Renal function has not improved since yesterday. Creatinine level today is 3.06, yesterday creatinine 3.00. Review of Systems: The patient denies fever, chills. Objective: Lungs: Clear to auscultation bilaterally. Heart: S1, S2. Abdomen: Soft, benign. Extremities: Minimal edema. Laboratory Data: Sodium 134, potassium 4.0, chloride 110, CO2 19, BUN 33, creatinine 3.06, magnesium 1.6, phosphorus 3.2, calcium 8.5. Impression And Plan: 1. Acute on chronic kidney injury. Continue IV fluids. Monitor intake and output closely. The patient, at this point, does not have a Rodriguez catheter. The patient will have blood work in a.m. to check electrolytes. 2. Hypomagnesemia. The patient received magnesium replacement. 3. Mild hyponatremia. Continue IV normal saline for treatment of acute kidney injury to prevent renal hypoperfusion. 4. Lab work is pending to rule out vasculitis and screen for possible secondary glomerulonephritis. 5. The patient has acute on chronic kidney injury. Urinalysis showed hematuria and leukocyturia along with mild proteinuria. The patient needs to be ruled out for glomerulonephritis. Urine culture was obtained to rule out urinary tract infection. At this point, the patient had urine culture positive for E. coli. Continue antibiotic treatment for urinary tract infection. I spent total 36 min including 26 min to coordinate care plan. LINH/VANIA Voice ID: [id number] Report ID: [id number] JOY
[2017-08-12] MEDS: NA CHLORIDE 0.9% 1,000 ML IV SCH (04:40)
[2017-08-12 05:48] LABS: Albumin 2.5 g/dL (3.2-5.5); Magnesium 1.9 mg/dL (1.8-2.5); Phosphorus 3.4 mg/dL (2.5-4.3); Potassium 4.3 mEq/L (3.6-5.0); Protein, Total 5.9 g/dL (6.0-8.3)
[2017-08-12 05:49] LABS: Absolute Lymphocytes (CBC) 0.9 K/uL (0.7-4.9); Absolute Monocytes 0.5 K/uL (0.1-1.3); Absolute Neutrophil 3.3 K/uL (1.8-8.0); Basophils % 0.9 % (0-1.3); Eosinophils % 7.3 % (0-4.4); Hematocrit 26.7 % (36.0-45.0); Lymphocytes % 17.8 % (15.3-44.8); MCH 31.5 pg (27.0-35.0); MCV 93.2 fL (80-100); MPV 9.8 fL (7.6-11.3); Monocytes % 9.9 % (3.3-12.3); RBC Red Blood Cell Count 2.87 M/uL (3.86-4.86)
[2017-08-12 06:10] VITALS: BMI 30.2
[2017-08-12] MEDS: INSULIN -REGULAR HUMAN 50 UNIT/0.5 ML ML SQ SCH ×2 (07:30→11:30)
--- NOTE | 2017-08-12 08:19 | RAD REPORT ---
EXAM DESCRIPTION: RAD - Chest Single View - 08/12/2017 3:23 am CLINICAL HISTORY: PICC line placement COMPARISON: None. FINDINGS: Portable chest was obtained following placement of a right upper extremity PICC line. The catheter tip is in the SVC.
[2017-08-12] MEDS: GABAPENTIN 100 MG CAP PO SCH (11:01)
[2017-08-12] MEDS: SPIRONOLACTONE 25 MG TABLET PO SCH (11:01)
[2017-08-12] MEDS: Meropenem 500 MG in NA CHLORIDE 0.9% 100 ML IV SCH (11:02)
[2017-08-12] MEDS: FAMOTIDINE 20 MG/2 ML VIAL IV SCH (11:02)
[2017-08-12] MEDS: BUPROPRION HCL S.R. 150MG TAB PO SCH (11:03)
[2017-08-12] MEDS: LACTULOSE 20 GM/30 ML UCUP PO SCH ×2 (11:07→15:04)
[2017-08-12] MEDS: NYSTATIN PWDR 100000 UNIT/GM TOP SCH (11:23)
[2017-08-12] MEDS ORDERED: SODIUM CHLORIDE 0.9% 10ML INJ IV PRN ×2 (12:00)
[2017-08-12] MEDS ORDERED: LIDOCAINE 1% MPF 5 ML VIAL IM PRN (12:00)
[2017-08-12 13:23] VITALS: BP 152/80; TEMP 97.5
[2017-08-12] MEDS ORDERED: SODIUM BICARB 325 MG TAB PO SCH (21:00)
[2017-08-12] MEDS ORDERED: SODIUM CHLORIDE 0.9% 10ML INJ IV SCH (21:00)
--- NOTE | 2017-08-12 21:05 | PN ---
Date of Progress Note: 08/12/2017 Chief Complaint: Acute kidney injury on chronic kidney disease. Subjective: The patient has nonoliguric urine output. She developed acute kidney injury secondary to possible hepatorenal syndrome with prerenal azotemia. The patient was started on diuretic because of fluid overload. Subsequently, diuretic was stopped and the patient is currently on IV fluids. The patient resumed adequate p.o. fluid intake. Renal function has not changed significantly over last 48 hours. Creatinine level is 3.01, BUN 33. Electrolytes as follows; sodium 136, potassium 4.3, chloride 113, CO2 of 28. Yesterday BUN 33 and creatinine 3.06. On August 07, 2018; BUN 35 and creatinine 2.92, creatinine baseline was 1.44. Renal ultrasound was done during this admission did not show obstructive uropathy. Kidney size is, right kidney 10.7 and left kidney 12.3. The patient was found to have urinary tract infection, she is undergoing treatment with antibiotics. Review of Systems: The patient denies fever or chills. Denies nausea or vomiting. Objective: Lungs: Clear to auscultation bilaterally. Heart: S1 and S2. Abdomen: Soft and benign. Extremities: No edema. Laboratory Data: Sodium 136, potassium 4.3, chloride 113, CO2 of 18, BUN 33, creatinine 3.01, and glucose 92, total bilirubin 2.0, phosphorus 3.4, magnesium 1.9, calcium 8.7. Impression And Plan: 1. Acute on chronic kidney injury. The patient will continue IV fluids, monitor renal panel, urine output and fluid balance . 2. Urinary tract infection. The patient needs to follow up with Nephrology office for evaluation as soon as possible in next week to re-evaluate renal panel. 3. The patient will continue sodium bicarbonate tablets for mild metabolic acidosis. 4. Hypertension. Blood pressure at this point is adequately controlled. I spent total 36 min including 26 min to coordinate care plan. LINH/VANIA Voice ID: [id number] Report ID: [id number] JOY
--- NOTE | 2017-08-13 14:46 | DS ---
Date of Discharge: 08/12/2017 Consultants: Dr. Tyler and Dr. Murphy with Nephrology, Dr. Albright, with Pulmonology. Admitting Diagnoses: 1.Urinary tract infection. 2.Hypertension. 3.Hepatic encephalopathy. 4.Hepatitis C. 5.Liver cirrhosis. 6.Thrombocytopenia. 7.Diabetes mellitus type 2, non-insulin dependent. Discharge Diagnoses: 1.Acute respiratory failure, resolved. 2.Acute hepatic encephalopathy, significantly improved. 3.Urinary tract infection, acute cystitis without hematuria secondary to ESBL Escherichia coli. She will be treated with meropenem for a minimum of 2 weeks. 4.Protein-calorie malnutrition, severe. Albumin 2.4. 5.Essential hypertension. 6.Bradycardia, beta-karen held. 7.History of hepatitis C, without coma, chronic. 8.Liver cirrhosis secondary to hepatitis C with ascites. 9.Thrombocytopenia. 10.Diabetes mellitus type 2 with long-term use of insulin without any complications. 11.History of congestive heart failure, diastolic dysfunction. EF 70%. 12.Peripheral neuropathy. 13.Hypothyroidism, Synthroid. 14.Gastroesophageal reflux disease without esophagitis. PPI. 15.History of anxiety and depression. 16.Acute on chronic kidney injury, stable. Hospital Course: The patient is a 51-year-old female who came into the hospital from a group home for hepatic encephalopathy. She was unresponsive at the group home. The patient had to be intubat ed. She was also bradycardic and was placed in the ICU. The patient was then seen by Dr. Gretchen corbett Pulmonology. Her workup revealed ammonia level of 133. She was started on lactulose, which impr juan her ammonia level down to 70. She did have some subsequent elevated ammonia levels, however, di d not correlate with her mental status, which was significantly improved. The patient was awake, hilaria rt, oriented x3. Her kidney function hovered around 3, which is slightly above her baseline from pre vious, which was around 1.6, so the patient was seen by Nephrology and workup was initiated. The pat ient otherwise did well. She was able to be extubated fairly quickly and she was weaned off suppleme ntal oxygen once her mental status had improved. The patient did have urine culture that came back p ositive for E. coli. Repeat urine culture was positive for E. coli and enterococcus faecalis, which showed ESBL producing E. coli. A PICC line was placed and the patient will need meropenem for 2 week s and repeat urine culture and if still positive, we would need another 2 weeks of meropenem. The brianna morrison otherwise did well. She was afebrile. The patient states that she is usually ambulatory with a walker. The patient is doing well. Her blood cultures were negative. She was afebrile. She was able to work well with PT. She was tolerating her diet. Her mental status was back to baseline. He r heart rate remained stable. Beta karen had been held. The patient was discharged back to [facility] in a fair condition, was cleared by Pulmonology and Nephrology. The patient will increase her dose of lactulose. She will be on meropenem for 2 weeks for ESBL producing E. coli and nystatin for recurrent infection. Followup: Follow up with primary care physician in 2-3 days. 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 Return to ER for worsening condition. Diet: Low-sodium fluid-restricted diet. Activity: Fall precautions. Continue physical therapy. Total time spent discharging patient was 42 minutes. Physical Examination: General: Awake, alert, oriented x3. No acute distress. CV: S1, S2. No murmurs. Respiratory: Moving air well bilaterally. No wheezing. Gastrointestinal: Abdomen is soft, nontender, nondistended. Positive bowel sounds. Extremities: No clubbing, cyanosis. No edema. Neurologic: Nonfocal. Speech is slow, although at her baseline. SA/MODL Voice ID: [id number] Report ID: [id number]
[2017-08-13 15:47] LABS: Hepatitis C Virus RNA (PCR)log 5.95 log IU/mL
[2017-08-13 19:46] LABS: HBsAG Nonreactive (Nonreactive)
[2017-08-13 20:39] LABS: HIV 1/2 Antibody Diff Not indicated.; HIV AG/AB 4TH GEN Non-reactive (Non-reactive)
[2017-08-13 22:22] LABS: Albumin, (SPE) 2.7 g/dL (3.8-4.8); Alpha-1-Globulins 0.3 g/dL (0.2-0.3); Alpha-2-Globulins 0.5 g/dL (0.5-0.9); Gamma Globulins 1.8 g/dL (0.8-1.7); INTERPRETATION REPORT
[2017-08-15 18:28] LABS: P-ANCA Anti-Myeloperoxidase Ab <1.0 AI (<1.0)
== END 2017-08-12 16:22 | DRG 441 ==
LOC: ER 17:56 → ERHOLD 20:32 → 3RD-ICU 20:44 → 4TH 08-09 15:50
PROVIDERS: ADMIT Internal Medicine; ATTEND Family Medicine
PROC: 0BH17EZ Insertion of Endotracheal Airway into Trachea, Via Natural or Artificial Opening (ICD-10-PCS; principal; 2017-08-07)
PROC: 06HM33Z Insertion of Infusion Device into Right Femoral Vein, Percutaneous Approach (ICD-10-PCS; 2017-08-07)
PROC: 5A1935Z Respiratory Ventilation, Less than 24 Consecutive Hours (ICD-10-PCS; 2017-08-07)
PROC: 02HV33Z Insertion of Infusion Device into Superior Vena Cava, Percutaneous Approach (ICD-10-PCS; 2017-08-12)
DX: K72.00 Acute and subacute hepatic failure without coma (principal); J96.00 Acute respiratory failure, unspecified whether with hypoxia or hypercapnia; E43 Unspecified severe protein-calorie malnutrition; N30.00 Acute cystitis without hematuria; N17.9 Acute kidney failure, unspecified; I13.0 Hypertensive heart and chronic kidney disease with heart failure and stage 1 through stage 4 chronic kidney disease, or unspecified chronic kidney disease; I50.30 Unspecified diastolic (congestive) heart failure; E87.1 Hypo-osmolality and hyponatremia; E83.42 Hypomagnesemia; D69.6 Thrombocytopenia, unspecified; I10 Essential (primary) hypertension; G62.9 Polyneuropathy, unspecified; E03.9 Hypothyroidism, unspecified; E11.65 Type 2 diabetes mellitus with hyperglycemia; K74.60 Unspecified cirrhosis of liver; B18.2 Chronic viral hepatitis C; N18.9 Chronic kidney disease, unspecified; K21.0 Gastro-esophageal reflux disease with esophagitis; K57.90 Diverticulosis of intestine, part unspecified, without perforation or abscess without bleeding; Z68.30 Body mass index [BMI] 30.0-30.9, adult
CPT/HCPCS: 31500; 36415; 51702; 70450; 71045; 76770; 80048; 80053; 80069; 80076; 81001; 81003; 81015; 81025; 82140; 82550; 82570; 82607; 82728; 82746; 82805; 82962; 83520; 83540; 83605; 83690; 83735; 83880; 84100; 84132; 84156; 84165; 84300; 84443; 84466; 84484; 85025; 85044; 85610; 85730; 86021; 86038; 86160; 86225; 86317; 86704; 86706; 87040; 87077; 87086; 87088; 87186; 87340; 87389; 87522; 93005; 94002; 94003; 97163; 99291; 99292; J0330; J0696; J2405; J3475; J7030

== ENCOUNTER 2017-08-31 15:17 | Inpatient (IN) | payer OTHER ==
--- NOTE | 2017-08-31 16:24 | RAD REPORT ---
EXAM DESCRIPTION: Chelsy Single View08/31/2017 4:18 pm CLINICAL HISTORY: Chest pain COMPARISON: July 2017 FINDINGS: The lungs appear clear of acute infiltrate. The heart is normal size IMPRESSION: No acute abnormalities displayed
[2017-08-31 16:35] LABS: Absolute Lymphocytes (CBC) 0.9 K/uL (0.7-4.9); Absolute Monocytes 0.3 K/uL (0.1-1.3); Absolute Neutrophil 2.9 K/uL (1.8-8.0); Basophils % 0.7 % (0-1.3); Eosinophils % 0.3 % (0-4.4); Hematocrit 23.1 % (36.0-45.0); Lymphocytes % 21.9 % (15.3-44.8); MCH 31.1 pg (27.0-35.0); MCV 95.2 fL (80-100); MPV 10.2 fL (7.6-11.3); Monocytes % 6.5 % (3.3-12.3); RBC Red Blood Cell Count 2.42 M/uL (3.86-4.86)
[2017-08-31 16:38] LABS: Protime INR 1.34
[2017-08-31 16:45] LABS: Potassium 3.9 mEq/L (3.6-5.0)
[2017-08-31 16:52] LABS: Albumin 2.3 g/dL (3.2-5.5); Bilirubin Direct 0.7 mg/dL (0-0.2); Bilirubin Total 1.8 mg/dL (0.3-1.2); Magnesium 1.9 mg/dL (1.8-2.5); Protein, Total 5.9 g/dL (6.0-8.3)
--- NOTE | 2017-08-31 18:21 | EDPHYS ---
Physician Documentation [facility] Name: Ernestina Mackay Age: 51 yrs Sex: Female : 1965 Arrival Date: 08/31/2017 Time: 15:24 Bed 28 Private MD: ED Physician Roel Barnes HPI: 08/31 18:17 This 51 yrs old Female presents to ER via EMS with complaints of chest pain. jr8 18:17 The patient or guardian reports chest pain that is located primarily in the substernal jr8 area. Onset: acutely, yesterday. The pain does not radiate. Associated signs and symptoms: Pertinent positives: shortness of breath. The chest pain is described as a pressure. Duration: The patient or guardian reports a single episode. Modifying factors: The symptoms are alleviated by nothing. the symptoms are aggravated by nothing. Severity of pain: At its worst the pain was mild in the emergency department the pain is unchanged. The patient has not experienced similar symptoms in the past. The patient has not recently seen a physician. stated that her legs are swelling as well. Much worse then normal. Feeling weak and fatigued . 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 mb3 Historical: - Allergies: 15:32 No Known Allergies; mb3 - Home Meds: 15:32 Aldactone 25 mg Oral tab 1 tab 2 times per day [Active]; ascorbic acid (vitamin C) 500 mb3 mg tab twice a day [Active]; gabapentin 300 mg Oral cap 1 cap twice a day [Active]; Humalog sliding scale Sub-Q twice a day [Active]; 17:04 furosemide 20 mg Oral tab 1 tab 2 times per day [Active]; multivitamin with minerals mb3 Oral tab daily [Active]; neomycin 500 mg Oral tab 3 tabs 2 times per day [Active]; propranolol 20 mg Oral tab 1 tab 3 times per day [Active]; lactulose 10 gram/15 mL (15 mL) Oral soln 30 mL 3 times per day [Active]; magnesium oxide 400 mg Oral cap 800 mg twice a day [Active]; Abilify 1 mg/mL oral soln 10 mL once daily at bedtime [Active]; Pepcid 20 mg Oral tab 1 tab once daily [Active]; Levemir 100 unit/mL subcutaneous soln 25 Units SQ every morning for Type 2 Diabetes Mellitus [Active]; nystatin 100,000 unit/gram Topical powd 2 times per day [Active]; sodium bicarbonate 650 mg oral tab 650 mg daily [Active]; acetaminophen 325 mg Oral tab 2 tabs every 6 hours for as needed for pain [Active]; Wellbutrin SR 150 mg Oral TbER 1 tab 2 times per day [Active]; - PMHx: 22:53 Anxiety; Cellulitis; CHF; Chronic pain; Cirrhosis; Depression; Diabetes - NIDDM; mb3 Hepatitis; Hypertension; insomnia; - Immunization history:: Adult Immunizations up to date. - Social history:: Smoking status: Patient/guardian denies using tobacco, never smoked. ROS: 18:17 Eyes: Negative for injury, pain, redness, and discharge, ENT: Negative for injury, jr8 pain, and discharge, Neck: Negative for injury, pain, and swelling, Abdomen/GI: Negative for abdominal pain, nausea, vomiting, diarrhea, and constipation, Back: Negative for injury and pain, MS/Extremity: Negative for injury and deformity, Skin: Negative for injury, rash, and discoloration, Neuro: Negative for headache, weakness, numbness, tingling, and seizure. 18:17 Cardiovascular: Positive for chest pain, edema, Negative for orthopnea, palpitations, paroxysmal nocturnal dyspnea. 18:17 Respiratory: Positive for shortness of breath. Exam: 18:17 Eyes: Pupils equal round and reactive to light, extra-ocular motions intact. Lids and jr8 lashes normal. Conjunctiva and sclera are non-icteric and not injected. Cornea within normal limits. Periorbital areas with no swelling, redness, or edema. ENT: Nares patent. No nasal discharge, no septal abnormalities noted. Tympanic membranes are normal and external auditory canals are clear. Oropharynx with no redness, swelling, or masses, exudates, or evidence of obstruction, uvula midline. Mucous membranes moist. Neck: Trachea midline, no thyromegaly or masses palpated, and no cervical lymphadenopathy. Supple, full range of motion without nuchal rigidity, or vertebral point tenderness. No Meningismus. Respiratory: Lungs have equal breath sounds bilaterally, clear to auscultation and percussion. No rales, rhonchi or wheezes noted. No increased work of breathing, no retractions or nasal flaring. Abdomen/GI: Soft, non-tender, with normal bowel sounds. No distension or tympany. No guarding or rebound. No evidence of tenderness throughout. Back: No spinal tenderness. No costovertebral tenderness. Full range of motion. Skin: Warm, dry with normal turgor. Normal color with no rashes, no lesions, and no evidence of cellulitis. MS/ Extremity: Pulses equal, no cyanosis. Neurovascular intact. Full, normal range of motion. Neuro: Awake and alert, GCS 15, oriented to person, place, time, and situation. Cranial nerves II-XII grossly intact. Motor strength 5/5 in all extremities. Sensory grossly intact. Cerebellar exam normal. Normal gait. 18:17 Cardiovascular: Rate: normal, Rhythm: regular, Pulses: Pulses are 2+ in right radial artery and left radial artery. Heart sounds: normal, normal S1and S2, no S3 or S4, no murmur, no rub, no gallop, Edema: 3+ edema to level of left midcalf, left ankle, left foot, right midcalf, right ankle and right foot, JVD: is not appreciated. Vital Signs: 15:41 BP 105 / 66; Pulse 67; Resp 18; Temp 98.1(O); Pulse Ox 98% on R/A; Weight 91.63 kg; mb3 Height 5 ft. 6 in. (167.64 cm); Pain 2/10; 16:38 BP 102 / 81; Pulse 60; Resp 18; Pulse Ox 100% on R/A; mb3 17:15 BP 102 / 59; Pulse 62; Resp 16; Pulse Ox 100% on R/A; Pain 0/10; mb3 18:02 BP 110 / 73; Pulse 65; Resp 16; Pulse Ox 100% on R/A; mb3 19:00 BP 110 / 80; Pulse 62; Resp 18; Pulse Ox 100% on R/A; Pain 0/10; mb3 20:39 BP 118 / 84; Pulse 59; Resp 18; Pulse Ox 100% ; mb3 21:29 BP 121 / 58; Pulse 59; Resp 18; Temp 98.2(O); Pulse Ox 100% on R/A; mb3 15:41 Body Mass Index 32.60 (91.63 kg, 167.64 cm) [facility] MDM: 15:29 Patient medically screened. [facility] 18:17 Data reviewed: vital signs, nurses notes, lab test result(s), EKG, radiologic studies, jr8 plain films, and as a result, I will admit patient. Data interpreted: Pulse oximetry: on room air is 100 %. Interpretation: normal. Counseling: I had a detailed discussion with the patient and/or guardian regarding: the historical points, exam findings, and any diagnostic results supporting the discharge/admit diagnosis, lab results, radiology results, the need for further work-up and treatment in the hospital. Physician consultation: Bryon Polo DO was called at 18:19, was contacted at 18:19, regarding admission, to the telemetry unit. consult, patient's condition, and will see patient. 08/31 15:54 Order name: Basic Metabolic Panel; Complete Time: 16:53 jr8 08/31 15:54 Order name: BNP; Complete Time: 17:12 jr08/31 15:54 Order name: CBC with Diff; Complete Time: 18:24 [facility] 08/31 15:54 Order name: LFT's; Complete Time: 16:53 jr8 08/31 15:54 Order name: Magnesium; Complete Time: 16:53 08/31 15:54 Order name: PT-INR; Complete Time: 16:42 jr8 08/31 15:54 Order name: Troponin (emerg Dept Use Only); Complete Time: 16:54 jr8 08/31 15:54 Order name: XRAY Chest (1 view); Complete Time: 16:34 8 08/31 18:16 Order name: AMMONIA; Complete Time: 19:16 jr8 08/31 18:22 Order name: CBC Smear Scan; Complete Time: 18:24 EDFL 08/31 18:33 Order name: Blood Culture Adult (2) 8 08/31 20:17 Order name: Urine Dipstick--Ancillary (enter results) em1 08/31 20:24 Order name: Urine Dipstick-Ancillary; Complete Time: 20:26 EDMS 08/31 15:54 Order name: EKG; Complete Time: 15:55 08/31 15:54 Order name: Cardiac monitoring; Complete Time: 16:32 jr08/31 15:54 Order name: EKG - Nurse/Tech; Complete Time: 16:32 jr08/31 15:54 Order name: IV Saline Lock; Complete Time: 16:32 08/31 15:54 Order name: Labs collected and sent; Complete Time: 16:32 08/31 15:54 Order name: O2 Per Protocol; Complete Time: 16:32 08/31 15:54 Order name: O2 Sat Monitoring; Complete Time: 16:32 08/31 15:54 Order name: Urine Dipstick-Ancillary (obtain specimen); Complete Time: 20:16 08/31 18:33 Order name: Straight Cath - Urine; Complete Time: 22:22 08/31 18:49 Order name: Social Service Consult EDMS Administered Medications: 19:00 Drug: Lasix 40 mg Route: IVP; Site: right forearm; mb3 22:51 Follow up: Urine output 1000 ml; Response: No adverse reaction mb3 Disposition: 22:39 Co-signature as Attending Physician, Roel Barnes MD I agree with the assessment and kdr plan of care. Disposition: 08/31/17 18:20 Hospitalization ordered by Bryon Polo for Inpatient Admission. Preliminary diagnosis are Chronic kidney disease (CKD), Chest pain, unspecified. - Bed requested for Telemetry/MedSurg (Inpatient). - Status is Inpatient Admission. mb3 - Condition is Stable. - Problem is new. - Symptoms have improved. UTI on Admission? No Signatures: Dispatcher [employer] EDFL Kellen Freeman Roel Cedeno MD MD [facility] Rafael Celis PA PA jr8 Torito Starks RN RN mb3 Corrections: (The following items were deleted from the chart) 18:52 18:20 Hospitalization Ordered by Bryon Polo DO for Inpatient Admission. Preliminary bd diagnosis is Chronic kidney disease (CKD); Chest pain, unspecified. Bed requested for Telemetry/MedSurg (Inpatient). Status is Inpatient Admission. Condition is Stable. Problem is new. Symptoms have improved. UTI on Admission? No. jr8 22:56 18:52 08/31/2017 18:20 Hospitalization Ordered by Bryon Polo DO for Inpatient mb3 Admission. Preliminary diagnosis is Chronic kidney disease (CKD); Chest pain, unspecified. Bed requested for Telemetry/MedSurg (Inpatient). Status is Inpatient Admission. Condition is Stable. Problem is new. Symptoms have improved. UTI on Admission? No. bd
--- NOTE | 2017-08-31 18:21 | ER ---
Nurse's Notes [facility] Name: Ernestina Mackay Age: 51 yrs Sex: Female : 1965 Arrival Date: 08/31/2017 Time: 15:24 Bed 28 Private MD: Diagnosis: Chronic kidney disease (CKD);Chest pain, unspecified Presentation: 08/31 15:24 Presenting complaint: Patient states: Sent from [facility] with complaints of fatigue mb3 and lethargy for last 3 days, also c/o chest tightness after ems left. Transition of care: patient was received from another setting of care (long-term care [facility]. Onset of symptoms was August 28, 2017. Initial Sepsis Screen: Does the patient meet any 2 criteria? No. Patient's initial sepsis screen is negative. Does the patient have a suspected source of infection? No. Patient's initial sepsis screen is negative. Care prior to arrival: None. 15:24 Method Of Arrival: EMS: [facility] mb3 15:24 Acuity: TOM 3 mb3 Triage Assessment: 15:33 General: Appears in no apparent distress. Behavior is calm, cooperative, appropriate mb3 for age, slow to respond. 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 LMP N/A - Post-menopause mb3 Historical: - Allergies: 15:32 No Known Allergies; mb3 - Home Meds: 15:32 Aldactone 25 mg Oral tab 1 tab 2 times per day [Active]; ascorbic acid (vitamin C) 500 mb3 mg tab twice a day [Active]; gabapentin 300 mg Oral cap 1 cap twice a day [Active]; Humalog sliding scale Sub-Q twice a day [Active]; 17:04 furosemide 20 mg Oral tab 1 tab 2 times per day [Active]; multivitamin with minerals mb3 Oral tab daily [Active]; neomycin 500 mg Oral tab 3 tabs 2 times per day [Active]; propranolol 20 mg Oral tab 1 tab 3 times per day [Active]; lactulose 10 gram/15 mL (15 mL) Oral soln 30 mL 3 times per day [Active]; magnesium oxide 400 mg Oral cap 800 mg twice a day [Active]; Abilify 1 mg/mL oral soln 10 mL once daily at bedtime [Active]; Pepcid 20 mg Oral tab 1 tab once daily [Active]; Levemir 100 unit/mL subcutaneous soln 25 Units SQ every morning for Type 2 Diabetes Mellitus [Active]; nystatin 100,000 unit/gram Topical powd 2 times per day [Active]; sodium bicarbonate 650 mg oral tab 650 mg daily [Active]; acetaminophen 325 mg Oral tab 2 tabs every 6 hours for as needed for pain [Active]; Wellbutrin SR 150 mg Oral TbER 1 tab 2 times per day [Active]; - PMHx: 22:53 Anxiety; Cellulitis; CHF; Chronic pain; Cirrhosis; Depression; Diabetes - NIDDM; mb3 Hepatitis; Hypertension; insomnia; - Immunization history:: Adult Immunizations up to date. - Social history:: Smoking status: Patient/guardian denies using tobacco, never smoked. Screenin:47 Abuse screen: Denies threats or abuse. Nutritional screening: No deficits noted. mb3 Tuberculosis screening: No symptoms or risk factors identified. Fall Risk No fall in past 12 months (0 pts). Secondary diagnosis (15 points) No IV (0 pts). Ambulatory Aid- Crutches/Cane/Walker (15 pts). Gait- Weak (10 pts.). Mental Status- Oriented to own ability (0 pts). Total Montes Fall Scale indicates High Risk Score (45 or more points). Fall prevention measures have been instituted. Side Rails Up X 2 Placed Close to Nursing Station Frequent Obs/Assessments Occuring. Assessment: 15:44 General: Appears in no apparent distress. Behavior is calm, cooperative, appropriate mb3 for age. Pain: Complains of pain in chest Pain does not radiate. Pain currently is 2 out of 10 on a pain scale. Quality of pain is described as pressure. 15:44 Neuro: Level of Consciousness is awake, alert, obeys commands, Oriented to person, mb3 place, time, situation. Cardiovascular: Reports chest pain, Heart tones S1 S2 present Capillary refill < 3 seconds Pulses are all present. Edema is 2+ to left midcalf, left ankle, left foot, left toes, right midcalf, right ankle, right foot and right toes pitting to left midcalf, left ankle, left foot, left toes, right midcalf, right ankle, right foot and right toes Rhythm is regular. Respiratory: No deficits noted. Airway is patent Breath sounds are clear bilaterally. GI: No signs and/or symptoms were reported involving the gastrointestinal system. Abdomen is round Bowel sounds present X 4 quads. : No signs and/or symptoms were reported regarding the genitourinary system. EENT: No signs and/or symptoms were reported regarding the EENT system. Derm: No signs and/or symptoms reported regarding the dermatologic system. Skin is dry. Musculoskeletal: Reports weakness in right leg and left leg. 16:30 Reassessment: Patient and/or family updated on plan of care and expected duration. Pain mb3 level reassessed. Patient is alert, oriented x 3, equal unlabored respirations, skin warm/dry/pink. Patient denies pain at this time. 17:25 Reassessment: Patient and/or family updated on plan of care and expected duration. Pain mb3 level reassessed. Patient is alert, oriented x 3, equal unlabored respirations, skin warm/dry/pink. 18:30 Reassessment: Patient and/or family updated on plan of care and expected duration. Pain mb3 level reassessed. Patient is alert, oriented x 3, equal unlabored respirations, skin warm/dry/pink. 19:44 Reassessment: Patient and/or family updated on plan of care and expected duration. Pain mb3 level reassessed. Patient is alert, oriented x 3, equal unlabored respirations, skin warm/dry/pink. 20:41 Reassessment: Patient and/or family updated on plan of care and expected duration. Pain mb3 level reassessed. Patient is alert, oriented x 3, equal unlabored respirations, skin warm/dry/pink. Patient states feeling better. 22:13 General: report called to Frannie Hopkins RN, SBAR used, all questions answered. Pt will [facility] be transported to room 422. Vital Signs: 15:41 BP 105 / 66; Pulse 67; Resp 18; Temp 98.1(O); Pulse Ox 98% on R/A; Weight 91.63 kg; 3 Height 5 ft. 6 in. (167.64 cm); Pain 2/10; 16:38 BP 102 / 81; Pulse 60; Resp 18; Pulse Ox 100% on R/A; mb3 17:15 BP 102 / 59; Pulse 62; Resp 16; Pulse Ox 100% on R/A; Pain 0/10; mb3 18:02 BP 110 / 73; Pulse 65; Resp 16; Pulse Ox 100% on R/A; mb3 19:00 BP 110 / 80; Pulse 62; Resp 18; Pulse Ox 100% on R/A; Pain 0/10; mb3 20:39 BP 118 / 84; Pulse 59; Resp 18; Pulse Ox 100% ; mb3 21:29 BP 121 / 58; Pulse 59; Resp 18; Temp 98.2(O); Pulse Ox 100% on R/A; mb3 15:41 Body Mass Index 32.60 (91.63 kg, 167.64 cm) mb3 ED Course: 15:24 Patient arrived in ED. mb3 15:27 Triage completed. mb3 15:29 Rafael Celis PA is PHCP. jr8 15:29 Roel Barnes MD is Attending Physician. jr8 15:48 Patient has correct armband on for positive identification. Placed in gown. Bed in low mb3 position. Call light in reach. Side rails up X 1. 15:48 Arm band placed on left wrist. mb3 16:09 EKG done, by consulting technical manager. reviewed by Roel Barnes MD. dt2 16:17 X-ray completed. Portable x-ray completed in exam room. Patient tolerated procedure jb2 well. 16:18 XRAY Chest (1 view) In Process Unspecified. EDMS 16:30 Inserted saline lock: 22 gauge in right forearm, using aseptic technique. mb3 16:31 Torito Starks, RN is Primary Nurse. mb3 18:20 Bryon Polo DO is Hospitalizing Provider. jr8 20:00 Straight cath inserted, using sterile technique, Specimen obtained. 15 Fr Returned kr2 100mL. Patient tolerated well. 20:43 Urine Dipstick--Ancillary (enter results) Sent. mb3 22:52 No provider procedures requiring assistance completed. Patient admitted, IV remains in mb3 place. Administered Medications: 19:00 Drug: Lasix 40 mg Route: IVP; Site: right forearm; mb3 22:51 Follow up: Urine output 1000 ml; Response: No adverse reaction mb3 Output: 22:51 Urine: 1000ml; Total: 1000ml. mb3 Outcome: 18:20 Decision to Hospitalize by Provider. jr8 22:54 Admitted to Tele accompanied by tech, via stretcher, Report called to Frannie Hopkins RN mb3 22:54 Condition: stable 22:54 Instructed on the need for admit. 22:56 Patient left the ED. mb3 Signatures: Dispatcher [employer] EDDaniel Cotter Josh, PA PA jr8 Kathia Sapp, RN RN kr2 Annamarie Wang dt2 Torito Starks RN RN mb3 Corrections: (The following items were deleted from the chart) 15:41 15:24 Presenting complaint: Patient states: Sent from [facility] with complaints of mb3 fatigue and lethargy for last 3 days mb3 22:12 21:29 BP 121 / 58; Pulse 59bpm; Resp 18bpm; Pulse Ox 100% RA; mb3 mb3
[2017-08-31 18:22] LABS: Blood Morphology Comment NOT SEEN (NOT SEEN); Platelet Estimate DECR; Urine White Blood Cell Casts OK
--- NOTE | 2017-08-31 18:48 | P.HP ---
Certification for Inpatient Patient admitted to: Inpatient With expected LOS: >2 Midnights Patient will require the following post-hospital care: Other Practitioner: I am a practitioner with admitting privileges, knowledge of patient current condition, hospital course, and medical plan of care. Services: Services provided to patient in accordance with Admission requirements found in Title 42 Section 412.3 of the Code of Federal Regulations Patient History Date of Service: 08/31/17 Primary Care Provider: [facility] physician; Nephrology-Dr. Murphy Reason for admission: Fatigue, Edema, Chest pain History of Present Illness: 51 yo CF came in with multiple complaints including weakness, fatigue, shortness of breath and chest pain. She also reported some edema to the lower extremities. This all started today. Patient recently hospitalized for UTI with ESBL. This required IV antibiotic therapy. PICC line was recently removed. Over the last several days she has been having increasing weakness, edema. Chest pain was noted today. Mainly to the substernal region. Patient also reported some nausea, vomiting. Patient has multiple medical problems including chronic renal disease, anemia with chronic disease with thrombocytopenia, diabetes, hypertension, liver cirrhosis with hepatitis-C and diastolic CHF. In the ER and the patient was evaluated. Renal function showed worsening since last visit. BUN of 54, creatinine 3 point GFR 14. White count 4.2, hemoglobin and AST 73. Initial troponin unremarkable BNP 141. Chest x-ray unremarkable Allergies No Known Drug Allergies Allergy (Verified 08/07/17 21:38) Unknown Home medications list reviewed: Yes Home Medications: Ascorbic Acid 500 mg PO BID 06/04/16 Furosemide [Lasix*] 20 mg PO BIDL 06/04/16 Gabapentin [Neurontin*] 300 mg PO BID 06/04/16 Multivitamin with Minerals [Oz Multivitamin with Mineral] 1 tab PO DAILY 06/04 Neomycin Sulfate 3 tab PO BID 06/04/16 Spironolactone [Aldactone*] 25 mg PO BID 06/04/16 Insulin Lispro [Humalog] See Protocol SQ BID 09/25/16 Aripiprazole 10 mg PO BEDTIME 08/07/17 Bupropion HCl [Bupropion HCl Sr] 1 tab PO BID 08/07/17 Insulin Detemir [Levemir] 25 units SQ DAILY WITH BREAKFAST 08/07/17 Omeprazole Magnesium [Prilosec Otc] 20 mg PO DAILY 08/07/17 Lactulose 60 ml PO TID #1 solution 08/12/17 Meropenem [Merrem*] 500 mg IV Q8HR #1 vial 08/12/17 Na Bicarb Tab [Sodium Bicarb 325 MG Tab*] 650 mg PO BID #60 tab 08/12/17 Nystatin Powder [Mycostatin (Powder)*] 1 appl TOP BID #1 btl 08/12/17 - Past Medical/Surgical History Diabetic: Yes -: Peripheral Neuropathy -: CHF -: HTN -: Hypothyroidism -: Diverticulosis -: Hepatitis C with Cirrhosis of liver -: GERD -: Peptic Ulcer -: Ovarian Cysts -: UTI, Recurrent -: Chronic back pain -: Anxiety/Depression -: Cardiac Cath -: -: Tonsillectomy Psychosocial/ Personal History: Lives by herself. Currently at care home - Family History Mother -: Heart disease, Other (see notes) Notes: takes b/p meds Father -: Diabetes - Social History Smoking Status: Never smoker Alcohol use: No CD- Drugs: No Caffeine use: No Place of Residence: Intermediate Review of Systems General: Weakness, As per HPI Eyes: Unremarkable ENT: Unremarkable Respiratory: Shortness of Breath, As per HPI Cardiovascular: Chest Pain, As per HPI Gastrointestinal: Nausea, Vomiting, As per HPI Genitourinary: Unremarkable Musculoskeletal: Pedal edema, Unremarkable Integumentary: As per HPI Neurological: Weakness, As per HPI Lymphatics: Unremarkable Physical Examination - Physical Exam General: Alert, In no apparent distress, Oriented x3, Cooperative HEENT: Atraumatic, Normocephalic, Mucous membr. moist/pink Neck: Supple, No Thyromegaly Respiratory: Clear to auscultation bilaterally, Normal air movement Cardiovascular: Normal pulses, Regular rate/rhythm Gastrointestinal: Normal bowel sounds, Soft and benign, Non-distended, No tenderness, No masses, No rebound, No guarding, Ascites (Mild ascites noted) Musculoskeletal: Other (2+ pitting edema to the lower extremities bilateral) Integumentary: No erythema, No warmth, No cyanosis Neurological: Normal speech, Normal strength at 5/5 x4 extr, Normal tone, Normal affect Lymphatics: No axilla or inguinal lymphadenopathy - Studies Laboratory Data (last 24 hrs) 08/31/17 16:16: PT 15.8 H, INR 1.34 08/31/17 16:16: WBC 4.2 L, Hgb 7.5 L*, Hct 23.1 L, Plt Count 66 L* 08/31/17 16:16: B-Natriuretic Peptide 141 H 08/31/17 16:16: Sodium 139, Potassium 3.9, BUN 54 H, Creatinine 3.48 H, Glucose 182 H, Magnesium 1.9, Total Bilirubin 1.8 H, AST 73 H, ALT 30, Alkaline Phosphatase 200 H Assessment and Plan - Problems (Diagnosis) (1) Diabetes mellitus Current Visit: Yes Status: Chronic Plan: Will continue sliding scale. Will monitor closely. 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 Patient may require dialysis if no improvement. Patient with edema. Patient will get IV Lasix. Will consult Nephrology. Qualifiers: Chronic kidney disease stage: stage 4 (severe) Qualified Code(s): N18.4 - Chronic kidney disease, stage 4 (severe) (3) Edema Current Visit: Yes Status: Acute Plan: Will start IV Lasix and Aldactone. Qualifiers: Edema type: unspecified Qualified Code(s): R60.9 - Edema, unspecified (4) Chest pain Current Visit: Yes Status: Acute Plan: Will monitor cardiac enzymes Qualifiers: Chest pain type: unspecified Qualified Code(s): R07.9 - Chest pain, unspecified (5) Anemia Onset Date: 09/27/16 Current Visit: No Status: Chronic Plan: Anemia of chronic disease noted. Will monitor hemoglobin. Patient may require transfusion. Qualifiers: Anemia type: due to chronic kidney disease Chronic kidney disease stage: stage 4 (severe) Qualified Code(s): N18.4 - Chronic kidney disease, stage 4 ( severe); D63.1 - Anemia in chronic kidney disease (6) Depression with anxiety Onset Date: 06/07/16 Current Visit: No Status: Chronic Plan: Will continue with her medication (7) GERD (gastroesophageal reflux disease) Onset Date: 09/27/16 Current Visit: No Status: Chronic Plan: Will continue with her medication. Qualifiers: (8) HTN (hypertension) Onset Date: 09/27/16 Current Visit: No Status: Chronic Plan: Blood pressure stable this time. Will hold blood pressure meds Qualifiers: Hypertension type: essential hypertension (9) Hepatitis C Onset Date: 06/07/16 Current Visit: No Status: Chronic Plan: Liver cirrhosis with hepatitis-C. Overall stable. Will monitor. Qualifiers: Viral hepatitis chronicity: chronic (10) Liver cirrhosis Onset Date: 02/16/16 Current Visit: No Status: Chronic Plan: Will continue with Lactulose. Will monitor. Qualifiers: (11) Thrombocytopenia Onset Date: 06/07/16 Current Visit: No Status: Chronic Plan: Will monitor. Patient with cirrhosis Discharge Plan: Intermediate Plan to discharge in: Greater than 2 days - Advance Directives Does patient have a Living Will: No Does patient have a Durable POA for Healthcare: No Time Spent Managing Pts Care (In Minutes): 55
[2017-08-31] MEDS ORDERED: FUROSEMIDE 40 MG/4 ML VIAL ONE (18:55)
[2017-08-31 20:23] LABS: Urine Blood NEGATIVE (NEG); Urine Glucose NEGATIVE (NEG); Urine Protein NEGATIVE (NEG); Urine pH 5.5 (5.0-7.0)
[2017-08-31] MEDS: INSULIN -REGULAR HUMAN 50 UNIT/0.5 ML ML SQ SCH (23:31)
[2017-08-31] MEDS ORDERED: ONDANSETRON 4 MG/2 ML VIAL IV PRN (23:31)
[2017-09-01] MEDS: SPIRONOLACTONE 25 MG TABLET PO SCH ×2 (01:03→09:00)
[2017-09-01] MEDS: ARIPiprazole 5 MG TAB PO SCH ×2 (01:03→21:51)
[2017-09-01] MEDS: LACTULOSE 20 GM/30 ML UCUP PO SCH ×4 (01:03→21:50)
[2017-09-01] MEDS: SODIUM BICARB 325 MG TAB PO SCH ×3 (01:04→21:52)
[2017-09-01] MEDS: BUPROPRION HCL S.R. 150MG TAB PO SCH ×3 (01:44→21:53)
[2017-09-01 04:44] LABS: Absolute Lymphocytes (CBC) 1.2 K/uL (0.7-4.9); Absolute Monocytes 0.4 K/uL (0.1-1.3); Absolute Neutrophil 1.7 K/uL (1.8-8.0); Basophils % 1.2 % (0-1.3); Eosinophils % 7.7 % (0-4.4); Hematocrit 22.3 % (36.0-45.0); Lymphocytes % 33.5 % (15.3-44.8); MCH 31.5 pg (27.0-35.0); MCV 96.3 fL (80-100); MPV 9.5 fL (7.6-11.3); Monocytes % 10.4 % (3.3-12.3); RBC Red Blood Cell Count 2.32 M/uL (3.86-4.86)
[2017-09-01 05:35] LABS: CKMB Creatine Kinase MB 2.9 ng/ml (0.3-4.0)
[2017-09-01 05:45] LABS: Albumin 2.2 g/dL (3.2-5.5); Bilirubin Total 1.7 mg/dL (0.3-1.2); Magnesium 1.8 mg/dL (1.8-2.5); Potassium 3.2 mEq/L (3.6-5.0); Protein, Total 5.6 g/dL (6.0-8.3)
--- NOTE | 2017-09-01 06:07 | EKG ---
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
[2017-09-01] MEDS: PANTOPRAZOLE 40MG TABLET PO SCH (06:08)
[2017-09-01] MEDS ORDERED: MAGNESIUM SULFATE 1 gm IVPB 1 GM/100 ML BAG IV ONE (06:23)
[2017-09-01] MEDS ORDERED: POTASSIUM CL SA 10 MEQ TAB PO ONE ×2 (06:24→16:00)
[2017-09-01] MEDS: INSULIN -REGULAR HUMAN 50 UNIT/0.5 ML ML SQ SCH ×4 (07:30→21:00)
--- NOTE | 2017-09-01 08:32 | RAD REPORT ---
EXAM DESCRIPTION: RAD - Chest Single View - 09/01/2017 8:15 am CLINICAL HISTORY: Shortness of breath COMPARISON: August 31 TECHNIQUE: AP portable chest image was obtained 0803 hours . FINDINGS: Lungs remain clear. No new or progressive lung parenchymal finding. Heart and vasculature are normal. No measurable pleural effusion and no pneumothorax. No gross bony abnormality seen. No [place] aortic findings suspected. IMPRESSION: No acute cardiopulmonary process. No new or progressive finding from prior imaging.
[2017-09-01] MEDS ORDERED: Rifaximin 550 MG Tab PO SCH (09:00)
[2017-09-01] MEDS ORDERED: FUROSEMIDE 40 MG/4 ML VIAL IV SCH (09:00)
[2017-09-01] MEDS: ASCORBIC ACID 500 MG TABLET PO SCH ×2 (09:52→21:51)
[2017-09-01] MEDS: GABAPENTIN 100 MG CAP PO SCH ×2 (09:52→21:52)
[2017-09-01] MEDS: MULTIVIT W/ MINERAL TAB PO SCH (09:53)
[2017-09-01] MEDS: NYSTATIN PWDR 100000 UNIT/GM TOP SCH ×2 (09:54→21:52)
--- NOTE | 2017-09-01 09:57 | P.PN ---
Subjective Date of Service: 09/01/17 Primary Care Provider: halfway physician; Nephrology-Dr. Murphy Chief Complaint: Fatigue, Edema, Chest pain Subjective: Doing well Physical Examination - Vital Signs Temperature: 97.2 F Blood Pressure: 94/60 Pulse: 58 Respirations: 18 Pulse Ox (%): 100 - Physical Exam General: Alert, In no apparent distress, Oriented x3, Cooperative HEENT: Atraumatic Neck: Supple Respiratory: Clear to auscultation bilaterally, Normal air movement Cardiovascular: Normal pulses, Regular rate/rhythm Gastrointestinal: Normal bowel sounds, Soft and benign, Non-distended, No tenderness, No masses, No rebound, Ascites (Minimal ascites) Musculoskeletal: No erythema, No tenderness, No warmth Integumentary: Tenderness/swelling (Edema to the lower extremities improved) Neurological: Normal speech, Normal strength at 5/5 x4 extr, Normal tone, Normal affect - Studies Laboratory Data (last 24 hrs) 08/31/17 16:16: PT 15.8 H, INR 1.34 08/31/17 16:16: WBC 4.2 L, Hgb 7.5 L*, Hct 23.1 L, Plt Count 66 L* 08/31/17 16:16: B-Natriuretic Peptide 141 H 08/31/17 16:16: Sodium 139, Potassium 3.9, BUN 54 H, Creatinine 3.48 H, Glucose 182 H, Magnesium 1.9, Total Bilirubin 1.8 H, AST 73 H, ALT 30, Alkaline Phosphatase 200 H Medications List Reviewed: Yes Assessment & Plan - Problems (Diagnosis) (1) Diabetes mellitus Onset Date: 09/01/17 Current Visit: Yes Status: Chronic Plan: Will continue sliding scale. Will monitor closely. 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 Patient may have hep at a renal disease. Patient may require dialysis. Will discuss with nephrology. Patient on Aldactone and Lasix. Qualifiers: Chronic kidney disease stage: stage 4 (severe) Qualified Code(s): N18.4 - Chronic kidney disease, stage 4 (severe) (3) Edema Onset Date: 09/01/17 Current Visit: Yes Status: Acute Plan: Will continue with IV Lasix and Aldactone. Qualifiers: Edema type: unspecified Qualified Code(s): R60.9 - Edema, unspecified (4) Chest pain Onset Date: 09/01/17 Current Visit: Yes Status: Acute Plan: Discuss with cardiology. Patient will have echo and cardiac stress test. Qualifiers: Chest pain type: unspecified Qualified Code(s): R07.9 - Chest pain, unspecified (5) Anemia Onset Date: 09/27/16 Current Visit: No Status: Chronic Plan: Anemia of chronic disease noted. Will monitor hemoglobin. Patient may require transfusion if hemoglobin less than 7.0. Qualifiers: Anemia type: due to chronic kidney disease Chronic kidney disease stage: stage 4 (severe) Qualified Code(s): N18.4 - Chronic kidney disease, stage 4 ( severe); D63.1 - Anemia in chronic kidney disease (6) Depression with anxiety Onset Date: 06/07/16 Current Visit: No Status: Chronic Plan: Will continue with her medication (7) GERD (gastroesophageal reflux disease) Onset Date: 09/27/16 Current Visit: No Status: Chronic Plan: Will continue with her medication. Qualifiers: (8) HTN (hypertension) Onset Date: 09/27/16 Current Visit: No Status: Chronic Plan: Blood pressure stable this time. Will hold blood pressure meds Qualifiers: Hypertension type: essential hypertension (9) Hepatitis C Onset Date: 06/07/16 Current Visit: No Status: Chronic Plan: Liver cirrhosis with hepatitis-C. Overall stable. Will monitor. Qualifiers: Viral hepatitis chronicity: chronic (10) Liver cirrhosis Onset Date: 02/16/16 Current Visit: No Status: Chronic Plan: Will continue with lactulose and Xifaxan. Qualifiers: (11) Thrombocytopenia Onset Date: 06/07/16 Current Visit: No Status: Chronic Plan: Will monitor. Patient with cirrhosis Discharge Plan: Longterm Plan to discharge in: Greater than 2 days Time Spent Managing Pts Care (In Minutes): 55
[2017-09-01 10:45] LABS: CKMB Creatine Kinase MB 3.4 ng/ml (0.3-4.0)
[2017-09-01 12:18] LABS: Hematocrit 25.3 % (36.0-45.0)
[2017-09-01] MEDS ORDERED: DESMOPRESSIN 4 MCG/ML AMP IV ONE (12:27)
[2017-09-01 12:47] LABS: Urine Appearance CLOUDY; Urine Bilirubin NEGATIVE (NEG); Urine Blood 3+ (NEG); Urine Color YELLOW; Urine Glucose NEGATIVE (NEG); Urine Protein NEGATIVE (NEG); Urine pH 6.5 (5.0-7.0)
--- NOTE | 2017-09-01 12:53 | RAD REPORT ---
EXAM DESCRIPTION: US - Renal Ultrasound-Complete - 09/01/2017 12:27 pm CLINICAL HISTORY: Acute kidney injury. COMPARISON: None. FINDINGS: Both kidneys are mildly echogenic. The right kidney measures 11.7 x 5.8 x 5.5 cm. No hydronephrosis, focal mass or perinephric fluid. The left kidney measures 11.8 x 5.8 x 4.9 cm. No hydronephrosis, focal mass or perinephric fluid. IMPRESSION: Unremarkable renal sonogram.
[2017-09-01 13:01] LABS: Urine Microscopic Reflex ORDER UMIC
[2017-09-01] MEDS: NA CHLORIDE 0.9% 1,000 ML IV SCH (13:59)
[2017-09-01] MEDS: MIDODRINE HCL 5 MG TABLET PO SCH ×2 (14:07→21:51)
[2017-09-01 14:39] LABS: UR CREAT 43.2 mg/dL; Urine Protein/Creatinine Ratio 0.37 (<0.15)
[2017-09-01 14:51] LABS: Urine Bacteria 20-50 /HPF (<20); Urine Culture Reflex Order NOT NEEDED; Urine RBC 20-50 /HPF (NONE SEEN)
[2017-09-01 14:52] LABS: Urine Yeast PRESENT (NONE SEEN)
[2017-09-01] MEDS ORDERED: CEFAZOLIN/SWI 1gm 1 GM/10 ML SYR IV SCH (15:15)
--- NOTE | 2017-09-01 16:13 | CON ---
Date of Consultation: 09/01/2017 Additional Consulting Physician: Bryon Polo DO Reason For Consultation: Elevated BUN and creatinine, anasarca. 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 At that time, her baseline creatinine around 1.1 to 1.2 with GFR 58 back in September 2016. In the previous hospitalization, her creatinine cruz to 3 and gradually trended down, left the creatinine of 3 with GFR of 17. The patient according to her went to the correction, finished her antibiotic, found to have anasarca and decrease in her urine output. For that reason, the patient w as send back. The patient according to her she is peeing less than 100 mL and the whole day started having increase in her leg swelling. Denies any chest pain. The patient apparently not on any fluid restriction. Her workup from previous admission, she has depleted C3-C4 and significant positive for hep C PCR. T he rest of the workup was negative. Her urinalysis on this admission was negative for infection and no leukocytosis. She on the previous admission was not nephrotic. The patient is complaining some r leigh and occasional hematuria. Past Medical History: Includes: 1.Diabetes complicated with neuropathy. 2.Congestive heart failure. 3.Hypothyroidism. 4.GERD. 5.Peptic ulcer disease. 6.Ovarian cyst. 7.Chronic kidney disease. Back in September 2016, creatinine 1.02, GFR of 58, had acute kidney injury. Last month creatinine jumped to 3, depleted complement. 8.Hep C. Past Surgical History: Include , tonsillectomy, cardiac cath. Home/[facility] Medications: Include: 1.Aldactone. 2.Propranolol. 3.Sodium bicarb 650 daily. 4.Insulin. 5.Lasix 20 b.i.d. 6.Pepcid. 7.Vitamin C. Current Medications: In the hospital include Lasix, gabapentin, lactulose, pantoprazole, sodium bica rb, spironolactone. Family History: Positive for diabetes and hypertension. Social History: Lives in correction. Denies smoking. Denies drinking. Denies drug abuse. Review of Systems: Head and Neck: No red eye. No ear pain. GI: No nausea. No vomiting. Has increase in the abdominal girth and has leg swelling. Endocrine: No polydipsia. Skin: No rash. Neuro: Has neuropathy. Musculoskeletal: Has low back pain. Respiratory: No shortness of breath. Cardiovascular: Has leg swelling. Physical Examination: Vital Signs: When I saw the patient, blood pressure 102/58, pulse of 55, afebrile. Chest: Clear to auscultation. Heart: S1, S2. Regular. Abdomen: Soft, nontender. Extremities: +2 edema, erythema on the right leg. Skin: I did not appreciate any rash. Laboratory Data: WBC 3.5, H and H 7.3/22.3, platelets 53. Sodium 141, potassium 3.2, bicarb 25, BUN 53, creatinine 3.5, GFR of 14, calcium 8.2, magnesium 1.8. Previous records, KRIS, ANCA double-stran d was negative, complement C3 and C4 depleted. Hepatitis C PCR was elevated at 900,000. Assessment And Plan: 1.Acute kidney injury, possible progression of hepatorenal/given the depleted complement possible he patitis C related to the patient oliguric, no sign of respiratory distress, but she is over volume. a.I had long discussion with the patient regarding her disease and the need to further evaluate. Th e patient agreed on kidney biopsy. We will proceed and the patient agreed to initiate renal replacem ent therapy. I am going to go ahead and send for urine electrolytes to evaluate if we have any ATN o r it is hepatorenal. b.I am going to go ahead and send for cryo and repeat the complement. c.I am going to discontinue Lasix, discontinue Aldactone, and we will consult Surgery for tunneled c atheter. 2.Hypertension, controlled, currently on the low side. I am going to go ahead and start the patient on midodrine and we will start the patient on Sandostatin. We will start gentle hydration till we h ave the full workup. 3.Possible hepatorenal syndrome. As above, the patient is going to be started on midodrine and star t on octreotide, start with fluid expansion as normal saline and albumin and we will follow up. The patient is going to require dialysis. We will arrange for a tunneled catheter. Given the patient is going to require procedure including the kidney biopsy and the tunneled catheter, I am going to go a head and get the patient's blood transfusion and platelet transfusion. We will give the patient desm opressin. 4.Anasarca. We will quantify the protein creatinine. I am going to go ahead and send for protein a nd creatinine. We will hold on the diuresis for the time being. 5.Anemia with chronic kidney disease/GI loss. I am going to go ahead and send for anemia workup. 6.Thrombocytopenia, mostly related to her cirrhosis. Given the plan for procedure, we will go ahead and give DDAVP tomorrow before the procedure. We will arrange for platelet transfusion if needed as by Interventional Radiology and we will follow up. This case discussed with Dr. Polo, agreed on the plan. Discussed with the patient, verbalized understanding. CHARLES Voice ID: [id number] Report ID: [id number]
[2017-09-01] MEDS ORDERED: NA CHLORIDE 0.9% 100 ML ONE ×2 (17:46→22:53)
--- NOTE | 2017-09-01 20:46 | CON ---
Date of Consultation: 09/01/2017 Reason: The patient needs dialysis. History Of Present Illness: The patient is a 51-year-old female with multiple medical problems, came in with weakness, fatigue, shortness of breath, and lower extremity edema. She was admitted and wor ked up, and she has end-stage renal disease, and she requires long-term dialysis. She is anemic, and she has low platelets. She is awake, alert, no fever or chills. No sore throat, runny nose, cough, headaches, or dizziness. No chest pain. Review of Systems: Otherwise unremarkable. Past Medical History: Diabetes, CHF, hypertension, hypothyroidism, hepatitis C, with cirrhosis of th e liver, chronic back pain, anxiety, depression. Past Surgical History: cardiac catheterization, tonsillectomy, adenoidectomy. Allergies: NONE. Social History: She does not smoke or drink. Family History: Significant for heart disease and diabetes. Physical Examination: Vital Signs: Stable. She is afebrile. General: She is awake, alert, orient x3. Head and Neck: Cranial nerves 2 through 12 are grossly within normal limits. No neck masses. No JV D. Throat clear. Neck is supple. Chest: Clear. Heart: S1, S2. Abdomen: Soft. Extremities: Neurovascularly intact. Neuro: Nonfocal. Laboratory Data: Shows hemoglobin 7.3, hematocrit 22.3, platelets 53, BUN is 53, creatinine is 3.53, potassium is 3.2. Assessment: A 51-year-old female with multiple medical problems with acute renal failure. End-stage renal disease requiring long-term dialysis. Recommendation: At this time, patient needs a platelet transfused and 1 unit of blood at least, and then we will proceed with a Tesio catheter placement in the morning. The patient understands the ris ks, benefits, and alternatives and agrees to procedure. /MODL Voice ID: [id number] Report ID: [id number]
[2017-09-01] MEDS ORDERED: ARIPiprazole 5 MG TAB PO SCH (21:00)
[2017-09-01] MEDS: ALBUMIN HUMAN 25% 100 ML IV SCH (21:51)
[2017-09-01] MEDS: OCTREOTIDE ACETATE 100 MCG/ML SQ SCH (21:53)
--- NOTE | 2017-09-02 02:26 | CON ---
Date of Consultation: 09/01/[address] Polo service with the elevated BUN and creatinine as well as anasarca. I saw the p sheri on 09/01/2017 for possible congestive heart failure. History Of Present Illness: The patient is a 51-year-old woman with a very significant past medical history. She has a history of cirrhosis secondary to hepatitis C. She has a history of hypertension , hypothyroidism, chronic renal disease. Her last creatinine was 3 with a GFR of 17, came in with an asarca and decreased urine output. There is questionable history of congestive heart failure, althou gh an echocardiogram which was done today before I saw her was perfectly normal without any evidence of left ventricular compliance issue or systolic dysfunction. She had a normal ejection fraction. D enied any chest pain. Past Medical History: As stated above. Review of Systems: Negative. Social History: Negative. Family History: Negative. Medications: At home presently include Aldactone, propranolol, sodium bicarbonate, Lasix 20 b.i.d., Pepcid, vitamin C, and insulin. Physical Examination: Vital Signs: Stable. She was afebrile. HEENT: Negative. Neck: Supple without any bruit, lymphadenopathy, JVD, or thyromegaly. Chest: Clear to auscultation and percussion. Cardiac: Revealed a regular rhythm and rate without any murmurs, gallops, or rubs. Abdomen: Obese. Extremities: She had edema 2 to 3+ in the extremities. Diagnostic Data: Her white count was 3.5. Sodium 141, potassium 3.2, platelet count was 53,000, hem oglobin is 7.3. Her GFR was 14, creatinine is 3.5. EKG: Nonspecific. Chest x-ray, clear. Impression And Plan: I believe we are dealing with acute renal failure on top of chronic renal failu re. I do not think this is a cardiac issue. I do not think she has congestive heart failure. She i s volume overloaded. No dyspnea. Dr. Tyler has seen her. There may be a plan for a kidney biops y. She is cleared from a cardiovascular standpoint to do so. We should probably continue on Lasix a nd consider dialysis down the road. Her diabetes is fairly well controlled. 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 She has significant anemia and thrombocytopenia probably secondary to her hepatic disease and r enal disease. She may benefit from transfusions. I will leave this up to Dr. Tyler and I will be available for questions if the need arise. ADAN/VANIA Voice ID: [id number] Report ID: [id number]
[2017-09-02 03:22] LABS: Hematocrit 23.9 % (36.0-45.0)
--- NOTE | 2017-09-02 04:17 | P.PN ---
Date of Service: 09/02/17 2u PRBC to be ordered to be given after Tessio and during HD
[2017-09-02 05:59] LABS: Absolute Lymphocytes (CBC) 0.8 K/uL (0.7-4.9); Absolute Monocytes 0.3 K/uL (0.1-1.3); Absolute Neutrophil 1.5 K/uL (1.8-8.0); Basophils % 1.3 % (0-1.3); Eosinophils % 7.4 % (0-4.4); Hematocrit 24.1 % (36.0-45.0); Lymphocytes % 27.9 % (15.3-44.8); MCV 95.1 fL (80-100); MPV 9.8 fL (7.6-11.3); Monocytes % 9.7 % (3.3-12.3); RBC Red Blood Cell Count 2.54 M/uL (3.86-4.86)
[2017-09-02] MEDS: PANTOPRAZOLE 40MG TABLET PO SCH (06:08)
[2017-09-02 07:15] LABS: Albumin 2.4 g/dL (3.2-5.5); Bilirubin Total 1.8 mg/dL (0.3-1.2); Ferritin 385.2 ng/ml (11.0-306.8); Folic Acid, (Folate) 15.7 ng/ml (>5.21); Magnesium 1.8 mg/dL (1.8-2.5); Phosphorus 4.6 mg/dL (2.5-4.3); Potassium 4.5 mEq/L (3.6-5.0); Protein, Total 5.7 g/dL (6.0-8.3)
[2017-09-02] MEDS: INSULIN -REGULAR HUMAN 50 UNIT/0.5 ML ML SQ SCH ×4 (07:30→21:00)
[2017-09-02] MEDS: MIDODRINE HCL 5 MG TABLET PO SCH ×3 (08:31→21:03)
[2017-09-02] MEDS: GABAPENTIN 100 MG CAP PO SCH ×2 (08:31→21:04)
[2017-09-02] MEDS: MULTIVIT W/ MINERAL TAB PO SCH (08:31)
[2017-09-02] MEDS: LACTULOSE 20 GM/30 ML UCUP PO SCH ×3 (08:31→21:02)
[2017-09-02] MEDS: ASCORBIC ACID 500 MG TABLET PO SCH ×2 (08:32→21:05)
[2017-09-02] MEDS: SODIUM BICARB 325 MG TAB PO SCH ×2 (08:32→21:05)
[2017-09-02] MEDS: BUPROPRION HCL S.R. 150MG TAB PO SCH ×2 (08:32→21:04)
[2017-09-02] MEDS: ALBUMIN HUMAN 25% 100 ML IV SCH ×2 (08:43→21:00)
[2017-09-02] MEDS: NA CHLORIDE 0.9% 1,000 ML IV SCH ×2 (08:44→13:21)
[2017-09-02] MEDS: OCTREOTIDE ACETATE 100 MCG/ML SQ SCH ×2 (08:44→21:03)
[2017-09-02] MEDS: NYSTATIN PWDR 100000 UNIT/GM TOP SCH ×2 (08:48→21:08)
--- NOTE | 2017-09-02 09:34 | ECHO ---
HEIGHT: 5 ft 6 in WEIGHT: 212 lb 14.4 oz DATE OF STUDY: 09/01/[address]: Bryon Polo DO 2-DIMENSIONAL: YES M.MODE: YES DOPPLER: YES COLOR FLOW: YES TDS: NO PORTABLE: NO DEFINITY: NO BUBBLE STUDY: NO DIAGNOSIS: CHEST PAIN, SHORTNESS OF BREATH CARDIAC HISTORY: CATHERIZATION: YES SURGERY: NO PROSTHETIC VALVE: NO PACEMAKER: NO MEASUREMENTS (cm) DIASTOLIC (NORMALS) SYSTOLIC (NORMALS) IVSd 0.9 (0.6-1.2) LA Diam 4.4 (1.9-4.0) LVEF 73% LVIDd 4.8 (3.5-5.7) LVIDs 2.8 (2.0-3.5) %FS 43% LVPWd 1.0 (0.6-1.2) Ao Diam 2.8 (2.0-3.7) 2 DIMENSIONAL ASSESSMENT: RIGHT ATRIUM: NORMAL LEFT ATRIUM: NORMAL RIGHT VENTRICLE: NORMAL LEFT VENTRICLE: NORMAL TRICUSPID VALVE: NORMAL MITRAL VALVE: NORMAL PULMONIC VALVE: NORMAL AORTIC VALVE: NORMAL PERICARDIAL EFFUSION: NONE AORTIC ROOT: NORMAL LEFT VENTRICULAR WALL MOTION: NORMAL DOPPLER/COLOR FLOW: NORMAL COMMENTS: NORMAL 2D ECHOCARDIOGRAM WITH DOPPLER. NO WALL MOTION ABNORMALITY. NO EFFUSION. TECHNOLOGIST: Yuriy HARDWICK
[2017-09-02] MEDS ORDERED: NA CHLORIDE 0.9% 100 ML IV ONE (09:35)
[2017-09-02] MEDS ORDERED: LIDOCAINE 1% 20 ML MDV ONE (09:35)
[2017-09-02] MEDS ORDERED: CEFAZOLIN/SWI 1gm 1 GM/10 ML SYR ONE (09:42)
[2017-09-02] MEDS ORDERED: NA CHLORIDE 0.9% 250 ML ONE ×2 (09:43→15:26)
[2017-09-02] MEDS ORDERED: D50W 25 GM/50 ML SYRINGE IV ONE (09:46)
--- NOTE | 2017-09-02 09:57 | P.PN ---
Subjective Date of Service: 09/02/17 Primary Care Provider: correction physician; Nephrology-Dr. Murphy Chief Complaint: Fatigue, Edema, Chest pain Subjective: Doing well Physical Examination - Vital Signs Temperature: 97.3 F Blood Pressure: 107/57 Pulse: 59 Respirations: 17 Pulse Ox (%): 100 - Physical Exam General: Alert, In no apparent distress, Oriented x3, Cooperative HEENT: Atraumatic Neck: Supple Respiratory: Clear to auscultation bilaterally, Normal air movement Cardiovascular: Normal pulses, Regular rate/rhythm Gastrointestinal: Normal bowel sounds, Soft and benign, Non-distended, No tenderness, No masses, No rebound, No guarding Musculoskeletal: No erythema, No tenderness, No warmth Integumentary: No erythema, No warmth, No cyanosis, Tenderness/swelling (Edema to the lower extremity slightly improved.) Neurological: Normal speech, Normal strength at 5/5 x4 extr, Normal tone, Normal affect - Studies Medications List Reviewed: Yes Assessment & Plan - Problems (Diagnosis) (1) Diabetes mellitus Onset Date: 09/01/17 Current Visit: Yes Status: Chronic Plan: Will continue sliding scale. Will monitor closely. Will check A1c. 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 Patient to have dialysis catheter placed for dialysis. Patient will need renal biopsy to further assess. If acute on chronic renal disease related to hepatitis, patient may improved with hepatitis- C treatment. Will have psychotherapist social worker arrange for outpatient dialysis. Case discussed with surgery, who will place dialysis catheter. Qualifiers: Chronic kidney disease stage: stage 4 (severe) Qualified Code(s): N18.4 - Chronic kidney disease, stage 4 (severe) (3) Edema Onset Date: 09/01/17 Current Visit: Yes Status: Acute Plan: Will continue with IV Lasix and Aldactone. Qualifiers: Edema type: unspecified Qualified Code(s): R60.9 - Edema, unspecified (4) Chest pain Onset Date: 09/01/17 Current Visit: Yes Status: Acute Plan: Case discussed with cardiology. Patient to have echocardiogram and cardiac stress test. Qualifiers: Chest pain type: unspecified Qualified Code(s): R07.9 - Chest pain, unspecified (5) Anemia Onset Date: 09/27/16 Current Visit: No Status: Chronic Plan: Anemia of chronic disease noted. Will monitor hemoglobin. Patient may require transfusion if hemoglobin less than 7.0. Qualifiers: Anemia type: due to chronic kidney disease Chronic kidney disease stage: stage 4 (severe) Qualified Code(s): N18.4 - Chronic kidney disease, stage 4 ( severe); D63.1 - Anemia in chronic kidney disease (6) Depression with anxiety Onset Date: 06/07/16 Current Visit: No Status: Chronic Plan: Will continue with her medication (7) GERD (gastroesophageal reflux disease) Onset Date: 09/27/16 Current Visit: No Status: Chronic Plan: Will continue with her medication. Qualifiers: (8) HTN (hypertension) Onset Date: 09/27/16 Current Visit: No Status: Chronic Plan: Blood pressure stable this time. Will hold blood pressure meds Qualifiers: Hypertension type: essential hypertension (9) Hepatitis C Onset Date: 06/07/16 Current Visit: No Status: Chronic Plan: Liver cirrhosis with hepatitis-C. Patient may require treatment as an outpatient. Qualifiers: Viral hepatitis chronicity: chronic (10) Liver cirrhosis Onset Date: 02/16/16 Current Visit: No Status: Chronic Plan: Will continue with lactulose. Overall stable. No encephalopathy noted. Qualifiers: (11) Thrombocytopenia Onset Date: 06/07/16 Current Visit: No Status: Chronic Plan: Will monitor. Patient with cirrhosis Discharge Plan: Longterm Plan to discharge in: Greater than 2 days Time Spent Managing Pts Care (In Minutes): 55
[2017-09-02] MEDS ORDERED: NS 0.9% VIAL 10 ML ONE (09:58)
[2017-09-02] MEDS ORDERED: LIDOCAINE 2% MPF 5 ML VIAL ONE (10:01)
[2017-09-02] MEDS ORDERED: PROPOFOL 200 MG/20 ML VIAL IV ONE (10:01)
[2017-09-02] MEDS ORDERED: MIDAZOLAM HCL 2 MG/2 ML INJ ONE (10:01)
[2017-09-02] MEDS ORDERED: FENTANYL CITR 100 MCG/2 ML ONE (10:03)
[2017-09-02] MEDS ORDERED: EPHEDRINE SULF 50 MG/5 ML SYR ONE (10:46)
[2017-09-02] MEDS: HEPARIN 5000 UNIT/ML 1 ML VIAL ONE ×2 (10:59→11:01)
--- NOTE | 2017-09-02 11:06 | P.OP ---
Preoperative diagnosis: ESRD Postoperative diagnosis: same Primary procedure: HOLLIE Purvis, Fluoroscopy Anesthesia: Gen Estimated blood loss: min Specimen: none Findings: normal anatomy Complications: None Transferred to: Recovery Room Condition: Good
--- NOTE | 2017-09-02 12:03 | RAD REPORT ---
EXAM DESCRIPTION: RAD - Chest Single View - 09/02/2017 11:45 am CLINICAL HISTORY: Venous catheter placement. COMPARISON: 09/01/2017 FINDINGS: Portable technique limits examination quality. The lungs are grossly clear. The heart is normal in size. Right-sided venous catheter tip in the SVC. No pneumothorax. IMPRESSION: No postprocedure pneumothorax.
[2017-09-02 12:17] LABS: MPV 9.8 fL (7.6-11.3)
[2017-09-02 13:44] LABS: Platelet Estimate DECR
[2017-09-02] MEDS: ACETAMINOPHEN 500 MG TAB PO PRN (18:32)
[2017-09-02] MEDS: HYDROCODONE/APAP 7.5/325 MG TAB PO PRN (18:52)
[2017-09-02 20:09] LABS: Hematocrit 27.9 % (36.0-45.0)
[2017-09-02] MEDS: ARIPiprazole 5 MG TAB PO SCH (21:04)
--- NOTE | 2017-09-02 22:12 | OP ---
Date of Procedure: 09/02/2017 Surgeon: Brent Vallejo MD Preoperative Diagnosis: End-stage renal disease. Postoperative Diagnosis: End-stage renal disease. Procedure: Insertion of right internal jugular Tesio catheter and interpretation of intraoperative f luoroscopy. Estimated Blood Loss: Minimal. Specimen: None. Findings: Normal anatomy. Anesthesia: MAC. Complications: None. Disposition: The patient tolerated the procedure in stable condition and taken to Recovery in good g eneral condition. Operative Note: The patient was brought to the OR and placed in the supine position. General anesth esia was begun. The patient was prepped and draped in the usual sterile fashion. Lidocaine 1% infil trated locally. An 18-gauge needle was used to access the right IJ vein. Guidewire was passed. Pos ition was confirmed with fluoroscopy. A counterincision was made on the right anterior chest. SportsHedge device was used to tunnel the catheter between the 2 wounds. Seldinger technique was used. Tip of the catheter was placed in the SVC under fluoroscopy and then catheter was flushed with heparin a nd packed with heparin. A 3-0 chromic was used to approximate the subcutaneous tissue and close the skin and 3-0 nylon was used to secure the tube to the chest wall. Sterile dressing was applied. The patient tolerated the procedure in stable condition and taken to Recovery in good general condition. Chest x-ray has been ordered. /MODL Voice ID: [id number] Report ID: [id number]
--- NOTE | 2017-09-03 02:43 | PN ---
Date of Progress Note: 09/02/2017 Chief Complaint: Elevated BUN and creatinine, anasarca. Subjective: The patient has multiple medical problems including history of cirrhosis of the liver secondary to hepatitis C, hypertension, history of congestive heart failure, hypothyroidism, chronic kidney disease. Baseline creatinine level is 1.1 to 1.2. She was admitted to the hospital back in July 2017 and creatinine level was 3 and GFR 17. The patient came to the hospital because of decreased urine output, anasarca, shortness of breath. Urine output was less than 100 mL per 24 hours. The patient was found to have severe acute kidney injury. BUN was 53, creatinine 3.5. Acute kidney injury on chronic kidney disease, severe; oliguric, secondary to hepatorenal syndrome and possible ATN. The patient is to start dialysis. Urine output has not improved. Likely the patient has ATN and hepatorenal syndrome. The patient was primarily started on Lasix and Aldactone, but did not respond to diuretics. Review of Systems: Denies fever or chills. Physical Examination: Lungs: Clear to auscultation bilaterally. HEART: S1 and S2. ABDOMEN: Soft and benign. EXTREMITIES: Edema present in both legs. Laboratory Data: Hemoglobin 9.4, sodium 142, potassium 4.5, chloride 112, CO2 22, BUN 48, creatinine 3.42, glucose 70, calcium 8.2, magnesium 1.8, phosphorus 4.6, total bilirubin 1.8. Impression And Plan: 1. Acute kidney injury, oliguric, renal function has not improved. The patient has anasarca, fluid overload. Catheter for dialysis access was obtained. The patient will start dialysis. 2. Fluid overload. Continue low-sodium diet. 3. Monitor blood pressure. The patient may require midodrine for blood pressure support during dialysis to prevent intradialytic hypotension. Currently, systolic blood pressure is in acceptable range. Continue to monitor renal function and fluid balance. Ultrafiltration will be done with dialysis to control fluid overload. I spent total 36 min including 26 min to coordinate care plan. LINH/VANAI Voice ID: [id number] Report ID: [id number] JOY
[2017-09-03] MEDS: HYDROCODONE/APAP 7.5/325 MG TAB PO PRN ×2 (05:27→14:48)
[2017-09-03] MEDS: NA CHLORIDE 0.9% 1,000 ML IV SCH (05:28)
[2017-09-03] MEDS: PANTOPRAZOLE 40MG TABLET PO SCH (05:30)
[2017-09-03 05:57] LABS: Absolute Lymphocytes (CBC) 0.7 K/uL (0.7-4.9); Absolute Monocytes 0.2 K/uL (0.1-1.3); Absolute Neutrophil 0.9 K/uL (1.8-8.0); Basophils % 1.3 % (0-1.3); Eosinophils % 8.2 % (0-4.4); Hematocrit 27.2 % (36.0-45.0); Lymphocytes % 34.4 % (15.3-44.8); MCH 30.5 pg (27.0-35.0); MCV 93.6 fL (80-100); MPV 9.7 fL (7.6-11.3); Monocytes % 9.3 % (3.3-12.3); RBC Red Blood Cell Count 2.91 M/uL (3.86-4.86)
[2017-09-03 06:37] LABS: Albumin 2.8 g/dL (3.2-5.5); Magnesium 1.6 mg/dL (1.8-2.5); Phosphorus 4.1 mg/dL (2.5-4.3); Potassium 3.9 mEq/L (3.6-5.0); Protein, Total 5.9 g/dL (6.0-8.3)
[2017-09-03] MEDS ORDERED: MAGNESIUM SULFATE 1 gm IVPB 1 GM/100 ML BAG IV ONE (06:57)
[2017-09-03] MEDS: INSULIN -REGULAR HUMAN 50 UNIT/0.5 ML ML SQ SCH ×4 (07:30→21:00)
[2017-09-03] MEDS: ALBUMIN HUMAN 25% 100 ML IV SCH ×2 (08:44→21:43)
[2017-09-03] MEDS: LACTULOSE 20 GM/30 ML UCUP PO SCH ×3 (08:45→21:43)
[2017-09-03] MEDS: MIDODRINE HCL 5 MG TABLET PO SCH ×3 (08:45→21:00)
[2017-09-03] MEDS: BUPROPRION HCL S.R. 150MG TAB PO SCH ×2 (08:46→21:00)
[2017-09-03] MEDS: MULTIVIT W/ MINERAL TAB PO SCH (08:46)
[2017-09-03] MEDS: SODIUM BICARB 325 MG TAB PO SCH ×2 (08:46→21:48)
[2017-09-03] MEDS: GABAPENTIN 100 MG CAP PO SCH ×2 (08:46→21:47)
[2017-09-03] MEDS: ASCORBIC ACID 500 MG TABLET PO SCH ×2 (08:46→21:48)
[2017-09-03] MEDS: NYSTATIN PWDR 100000 UNIT/GM TOP SCH ×2 (09:00→21:00)
[2017-09-03] MEDS: OCTREOTIDE ACETATE 100 MCG/ML SQ SCH ×2 (10:03→21:48)
--- NOTE | 2017-09-03 16:04 | PN ---
Date of Progress Note: 09/03/2017 Chief Complaint: Acute kidney injury. History Of Present Illness: Acute kidney injury, oliguric, severe associated with fluid overload. BUN is 48, creatinine 3.42. Renal function has not improved since yesterday. The patient received dialysis yesterday for metabolic clearance and to control fluid overload. The patient has multiple medical problems including cirrhosis of the liver secondary to hepatitis C, hypertension, congestive heart failure, hypothyroidism, chronic kidney disease stage 3. The patient developed severe acute kidney injury. Previous baseline back in July has not improved and remained elevated up to 3.0, consistent with chronic kidney disease stage 4. The patient advanced from stage 3 to stage 4 chronic kidney disease over last several months due to acute kidney injury with ATN. The patient currently is admitted with fluid overload. Renal function has not improved and urine output did not respond to diuretic challenge. Review of Systems: The patient is complaining of some shortness of breath. Denies chest pain palpitation and syncope. She is complaining of leg's edema. Physical Examination: Lungs: Diminished breath sounds at bases. Crackles present. Heart: S1, S2. No pericardial friction rub. Abdomen: Soft, benign. Obese. Extremities: Edema present. Laboratory Data: Hemoglobin 8.9, WBC 2.0, platelet count is 55,000. Chemistry showed sodium 140, potassium 3.9, chloride 106, CO2 26, BUN 26, creatinine 2.58 , magnesium 1.6, calcium 8.1, phosphorus 4.1. Impression And Plan: 1. End-stage renal disease due to acute on chronic kidney injury, likely the patient will remain on dialysis. Continue dialysis daily with ultrafiltration to treat fluid overload. The patient has severe fluid overload, anasarca and congestive heart failure with diastolic dysfunction. Continue oxygenation with nasal cannula as needed. 2. The patient is scheduled to have dialysis with ultrafiltration today. Monitor electrolytes. Adjust dialysis parameters. 3. Hypomagnesemia. Magnesium replacement ordered. 4. Hypertension. Monitor blood pressure during dialysis and start midodrine for blood pressure support as needed to facilitate ultrafiltration. I spent total 36 min including 26 min to coordinate care plan. LINH/VANIA Voice ID: [id number] Report ID: [id number] JOY
--- NOTE | 2017-09-03 20:10 | PN ---
Subjective: The patient currently lying in bed. She looks comfortable. She has no chest pain. No abdominal pain. No nausea or vomiting. She does have her neck where they put dialysis ca theter. Physical Examination: Vital Signs: Blood pressure 135/70, respiratory rate 16, pulse 62, temperature 97. General: The patient alert, ordered x3. Does not look in any distress. HEENT: Atraumatic, normocephalic. PERRLA. Oral mucosa is moist. Neck: Supple. No JVD. No carotid bruits. Chest: Clear to auscultation. Good air entry. Heart: Regular rate and rhythm. S1, S2 normal. No gallop or murmur. Abdomen: Soft, nontender, with no hepatosplenomegaly. Positive bowel sounds. Extremities: No clubbing or cyanosis. She has stasis dermatitis in the lower extremity. No swellin g. Laboratory Data: Today, showed CBC with white blood cells 2, hemoglobin 8.9, platelets 55. Chemistr y is normal except for BUN of 26, creatinine of 2.58, GFR of 20, magnesium 1.6. Bilirubin of 2, ____ of 18. Assessment And Plan: 1.Acute on chronic renal insufficiency. Nephrology consult requested. The patient will be started on dialysis yesterday, dialysis catheter was placed. Workup in progress. Biopsy of the kidney will be done on Tuesday to evaluate cytology of her renal insufficiency. 2.Lower extremity edema, chronic, most likely secondary to renal insufficiency. Hopefully will get better with dialysis. She is on Lasix and Aldactone. 3.Chest pain, resolved. The patient is going to have a stress test on Tuesday. 4.Anemia disease as well as hepatitis C. We will keep hemoglobin above 7. The patient w ill benefit probably from Aranesp but will leave that up to Nephrology. 5.Thrombocytopenia, cerebrovascular accident, most likely secondary to liver disease and hepatitis C . 6.We will observe no active bleeding. 7.History of depression and anxiety. Continue home medicine with Abilify. 8.Hypotension, on midodrine. 9.Replace magnesium, potassium as needed. 10.Gastrointestinal prophylaxis on PPI with Protonix. 11.Symptomatic treatment for pain on hydrocodone. 12.No deep vein thrombosis prophylaxis. The patient has severe thrombocytopenia. 13.Discharge plan will depend on social work finding. A dialysis chair for patient but after her st ress test and kidney biopsy on Tuesday. 14.Diabetes mellitus. Well controlled. Continue same medications. MARYJANE/VANIA Voice ID: [id number] Report ID: [id number]
[2017-09-03] MEDS: ARIPiprazole 5 MG TAB PO SCH (21:45)
[2017-09-03] MEDS: MAGNESIUM OXIDE 400 MG TAB PO SCH (21:48)
[2017-09-04] MEDS: HYDROCODONE/APAP 7.5/325 MG TAB PO PRN ×3 (01:47→20:33)
[2017-09-04 06:31] LABS: Albumin 2.9 g/dL (3.2-5.5); Magnesium 1.7 mg/dL (1.8-2.5); Phosphorus 2.5 mg/dL (2.5-4.3); Potassium 4.1 mEq/L (3.6-5.0)
[2017-09-04] MEDS: PANTOPRAZOLE 40MG TABLET PO SCH (06:36)
[2017-09-04] MEDS: INSULIN -REGULAR HUMAN 50 UNIT/0.5 ML ML SQ SCH ×4 (07:30→21:00)
[2017-09-04] MEDS: NYSTATIN PWDR 100000 UNIT/GM TOP SCH ×2 (09:00→20:36)
[2017-09-04] MEDS: MULTIVIT W/ MINERAL TAB PO SCH (11:35)
[2017-09-04] MEDS: ALBUMIN HUMAN 25% 100 ML IV SCH ×2 (11:35→20:32)
[2017-09-04] MEDS: ASCORBIC ACID 500 MG TABLET PO SCH ×2 (11:35→20:34)
[2017-09-04] MEDS: OCTREOTIDE ACETATE 100 MCG/ML SQ SCH ×2 (11:35→20:32)
[2017-09-04] MEDS: LACTULOSE 20 GM/30 ML UCUP PO SCH ×4 (11:35→21:00)
[2017-09-04] MEDS: SODIUM BICARB 325 MG TAB PO SCH ×2 (11:35→20:34)
[2017-09-04] MEDS: GABAPENTIN 100 MG CAP PO SCH ×2 (11:35→20:33)
[2017-09-04] MEDS: MAGNESIUM OXIDE 400 MG TAB PO SCH ×2 (11:36→20:33)
[2017-09-04] MEDS: BUPROPRION HCL S.R. 150MG TAB PO SCH ×2 (11:38→20:33)
--- NOTE | 2017-09-04 13:52 | PN ---
Subjective: The patient currently sitting on the side of bed. She is tired. She had dialysis yeste rday and again this morning. She is eating okay. No chest pain. No abdominal pain. She continues to have neck pain, and she want her hydrocodone. She has not had bowel movement yet though she is on lactulose. Review of Systems: Otherwise, negative. Physical Examination: Vital Signs: Blood pressure 141/70, respiratory rate 18, pulse 81, temperature 97. General: The patient is alert and oriented x3. Does not look in any distress. HEENT: Atraumatic and normocephalic. PERRLA. Oral mucosa is moist. Neck: Supple. No JVD. No carotid bruits. Chest: Clear to auscultation. Good air entry. Heart: Regular rate and rhythm. S1 and S2 normal. No gallop or murmur. Abdomen: Soft, nontender. No masses. No hepatosplenomegaly. Positive bowel sounds. She is obese. Extremities: No clubbing, no cyanosis, +1 edema. There is a catheter in her left neck. There is no bleeding or bruising around it. Laboratory Data: Today showed CBC with white blood cells of 2, hemoglobin 8.9, platelet of 35. Chem istry within normal except for creatinine 1.9, GFR of 28, calcium 8.3, magnesium 1.7. Assessment And Plan: 1.Acute on chronic renal insufficiency. Appreciate Nephrology call. The patient on hemodialysis at this point, and she will need apparently long-term hemodialysis as outpatient. Social work consult tomorrow to find a chair for the patient as outpatient. Also kidney biopsy will be done on Tuesday to evaluate the etiology of renal insufficiency. 2.Lower extremity edema. Much better since the patient on dialysis now. Continue Lasix and Aldacto ne. 3.Chest pain resolved. Stress test to be done tomorrow morning. 4.Anemia with pancytopenia most likely secondary to hepatitis C and liver disease. I will order sme ar today. The patient may benefit from Procrit or Aranesp, but we will leave that to Nephrology. 5.Depression and anxiety history. Continue the patient on Abilify. 6.Hypertension, better on midodrine. 7.Gastrointestinal prophylaxis with Protonix. 8.Neck pain after catheter placement on hydrocodone. 9.Deep vein thrombosis prophylaxis and the patient has severe thrombocytosis. 10.Discharge plan after finding a chair for hemodialysis and depend on the stress test result on Tue. MARYJANE/VANIA Voice ID: [id number] Report ID: [id number]
[2017-09-04] MEDS: ARIPiprazole 5 MG TAB PO SCH (20:34)
--- NOTE | 2017-09-04 23:28 | PN ---
Date of Progress Note: 09/04/2017 Chief Complaint: Acute kidney injury. History Of Present Illness: Acute kidney injury moderately severe, nonoliguric, associated with flui d overload. BUN is elevated. Creatinine is up to 3.5. Renal function has not improved since yester day. The patient has fluid overload and has been dialyzed daily, received ultrafiltration to control fluid overload. Review of Systems: Respiratory: Denies PND, orthopnea. Cardiovascular: Denies chest pain, palpitation. GI: Denies nausea vomiting. Physical Examination: Lungs: Diminished breath sounds at bases. Few crackles. Heart: S1-S2. Abdomen: Soft, benign. Extremities: Edema present. Laboratory Data: Hemoglobin 8.9, WBC 2.0, platelet count is 55,000. Chemistries showed sodium 142, potassium 4.1, chloride 108, CO2 27, BUN 16, creatinine 1.90, magnesium 1.7, phosphorus is 2.5. Impression And Plan: 1.Fluid overload. The patient will have dialysis tomorrow. Continue treatment with dialysis and ul trafiltration. 2.Hypomagnesemia, replacement as needed. Monitor magnesium level. 3.Hypertension. Blood pressure is controlled. Monitor blood pressure during dialysis and hold ultr afiltration if systolic blood pressure is below 110. 4.Anemia. The patient may need blood transfusion, monitor. LINH/VANIA Voice ID: [id number] Report ID: [id number]
[2017-09-05 04:51] LABS: Magnesium 1.7 mg/dL (1.8-2.5); Phosphorus 2.6 mg/dL (2.5-4.3); Potassium 4.1 mEq/L (3.6-5.0)
[2017-09-05] MEDS: PANTOPRAZOLE 40MG TABLET PO SCH (05:31)
[2017-09-05] MEDS: INSULIN -REGULAR HUMAN 50 UNIT/0.5 ML ML SQ SCH ×4 (07:30→21:00)
[2017-09-05] MEDS ORDERED: MAGNESIUM SULFATE 1 gm IVPB 1 GM/100 ML BAG IV ONE ×2 (07:35→09:00)
[2017-09-05] MEDS ORDERED: REGADENOSON 0.4 MG/5 ML SYR IV ONE (08:09)
[2017-09-05] MEDS: MAGNESIUM OXIDE 400 MG TAB PO SCH ×3 (09:00→21:17)
[2017-09-05] MEDS: SODIUM BICARB 325 MG TAB PO SCH ×3 (09:00→21:18)
[2017-09-05] MEDS: BUPROPRION HCL S.R. 150MG TAB PO SCH ×3 (09:00→21:17)
[2017-09-05] MEDS: NYSTATIN PWDR 100000 UNIT/GM TOP SCH ×2 (09:00→21:25)
[2017-09-05] MEDS: MULTIVIT W/ MINERAL TAB PO SCH ×2 (09:00→11:04)
[2017-09-05] MEDS: ASCORBIC ACID 500 MG TABLET PO SCH ×3 (09:00→21:18)
[2017-09-05] MEDS: OCTREOTIDE ACETATE 100 MCG/ML SQ SCH ×3 (09:00→23:08)
[2017-09-05] MEDS: LACTULOSE 20 GM/30 ML UCUP PO SCH ×3 (09:00→21:17)
[2017-09-05] MEDS: GABAPENTIN 100 MG CAP PO SCH ×3 (09:00→21:17)
[2017-09-05] MEDS ORDERED: NA CHLORIDE 0.9% 500 ML ONE (10:24)
[2017-09-05] MEDS: HYDROCODONE/APAP 7.5/325 MG TAB PO PRN ×2 (10:32→18:18)
[2017-09-05] MEDS: ALBUMIN HUMAN 25% 100 ML IV SCH ×2 (10:32→21:17)
--- NOTE | 2017-09-05 10:51 | RAD REPORT ---
EXAM DESCRIPTION: NM - Rest Stress Cardiac Imaging - 09/05/2017 10:46 am CLINICAL HISTORY: Chest pain. COMPARISON: None. TECHNIQUE: The patient was administered approximately 10mCi of Tc 99m Sestamibi prior to resting SPE CT imaging of the heart. The patient was then administered approximately 30 mCi of Tc 99m Sestamibi f ollowing exercise or pharmacologic stress. Multiplanar SPECT images were reviewed. FINDINGS: No stress induced ischemic defect is seen to suggest stress induced ischemia. No fixed def ect is seen to suggest hibernating myocardium or scarred myocardium. The end diastolic volume is 105 ml, the end systolic volume is 36 ml, and the ejection fraction is 65 %. IMPRESSION: No stress induced ischemia.
--- NOTE | 2017-09-05 11:17 | RAD REPORT ---
EXAM DESCRIPTION: US - UPPER EXTREMITY VENOUS BILAT - 09/05/2017 9:46 am CLINICAL HISTORY: Bilateral arm edema and swelling. COMPARISON: None. TECHNIQUE: Real-time sonographic interrogation of the left and right upper extremity deep venous sys tems was performed. FINDINGS: Normal compressibility, flow augmentation, phasic flow and spontaneous flow is identified in both the left and right upper extremity deep venous systems. IMPRESSION: No sonographic evidence of left or right upper extremity deep venous thrombosis.
--- NOTE | 2017-09-05 12:01 | TREADPHA ---
DX: CHEST PAIN Date of Study: 09/05/17 Ht: 5 6 Wt: 209 lb 14.4 oz Consulting Physician: MAGALYS MEDICATIONS: TYENOL, WORCO, ABILIFY, ALBUMIN, WELLBUTRIN, NEURONTIN, HEPARIN, NOVOLIN, CEPHULAC, MYCOSTATIN, ZOFRAN, PROTONIX. HISTORY: PATIENT WITH CHES TPAIN. MYOCARDIAL INFARCTION WAS RULED OUT. PHYSICIAL EXAMINATION: RESTING B.P.: 110/68 RESTING H.R.: 71 RESTING EKG: LOW VOLTAGE OTHERWISE NORMAL. PROTOCOL: LEXISCAN EXERCISE TIME: 3:30 B.P. AT PEAK STRESS: 110/66 IMPRESSION: LEXISCAN STRESS TEST PERFORMED. CARDIOLITE INJECTED PER PROTOCOL. NO CHEST PAIN, NO SUPRA VENTRICULAR TACHYCARDIA OR VENTRICULAR TACHYCARDIA NOTED. SEE NUCLEAR MEDICINE REPORT. NON DIAGNOSTIC EKG WITH LEXISCAN STRESS.
[2017-09-05 12:40] LABS: Hepatitis C Virus RNA (PCR)log 6.16 log IU/mL
--- NOTE | 2017-09-05 15:49 | P.PN ---
Subjective Date of Service: 09/05/17 Primary Care Provider: skilled nursing physician; Nephrology-Dr. Murphy Chief Complaint: Fatigue, Edema, Chest pain Subjective: Doing well Physical Examination - Vital Signs Temperature: 98.0 F Blood Pressure: 131/69 Pulse: 80 Respirations: 16 Pulse Ox (%): 100 - Physical Exam General: Alert, In no apparent distress, Oriented x3, Cooperative HEENT: Atraumatic Neck: Supple Respiratory: Clear to auscultation bilaterally, Normal air movement Cardiovascular: Normal pulses, Regular rate/rhythm Gastrointestinal: Normal bowel sounds, Soft and benign, Non-distended Musculoskeletal: No tenderness, No warmth Integumentary: Tenderness/swelling (Edema to the lower extremities has improved. ) Neurological: Normal speech, Normal strength at 5/5 x4 extr, Normal tone, Normal affect - Studies Medications List Reviewed: Yes Assessment & Plan - Problems (Diagnosis) (1) Diabetes mellitus Onset Date: 09/01/17 Current Visit: Yes Status: Chronic Plan: Will continue sliding scale. Will monitor closely. 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 Will continue with dialysis. Patient will get renal biopsy tomorrow. So far cardiac evaluation has been negative. Stress test showed no stress-induced ischemia. Will continue with plan for outpatient dialysis. If the patient requires hepatitis-C treatment then this may improve her renal function over time. Will discuss with nephrology. Patient can be discharged once outpatient dialysis has been arranged. Qualifiers: Chronic kidney disease stage: stage 4 (severe) Qualified Code(s): N18.4 - Chronic kidney disease, stage 4 (severe) (3) Edema Onset Date: 09/01/17 Current Visit: Yes Status: Acute Plan: Will continue with IV Lasix and Aldactone. Qualifiers: Edema type: unspecified Qualified Code(s): R60.9 - Edema, unspecified (4) Chest pain Onset Date: 09/01/17 Current Visit: Yes Status: Acute Plan: Case discussed with cardiology. Cardiac stress test showed no stress-induced ischemia. Ejection fraction 58%. Qualifiers: Chest pain type: unspecified Qualified Code(s): R07.9 - Chest pain, unspecified (5) Anemia Onset Date: 09/27/16 Current Visit: No Status: Chronic Plan: Anemia of chronic disease noted. Case discussed with hematology. Will transfuse if hemoglobin less than 7.0. Anemia likely related to chronic disease related to liver and renal disease. Will monitor closely. Qualifiers: Anemia type: due to chronic kidney disease Chronic kidney disease stage: stage 4 (severe) Qualified Code(s): N18.4 - Chronic kidney disease, stage 4 ( severe); D63.1 - Anemia in chronic kidney disease (6) Depression with anxiety Onset Date: 06/07/16 Current Visit: No Status: Chronic Plan: Will continue with her medication (7) GERD (gastroesophageal reflux disease) Onset Date: 09/27/16 Current Visit: No Status: Chronic Plan: Will continue with her medication. Qualifiers: (8) HTN (hypertension) Onset Date: 09/27/16 Current Visit: No Status: Chronic Plan: Blood pressure stable this time. Will continue to hold blood pressure medication. Patient currently on midodrine. Qualifiers: Hypertension type: essential hypertension (9) Hepatitis C Onset Date: 06/07/16 Current Visit: No Status: Chronic Plan: Liver cirrhosis with hepatitis-C. Patient may require treatment as an outpatient. Qualifiers: Viral hepatitis chronicity: chronic (10) Liver cirrhosis Onset Date: 02/16/16 Current Visit: No Status: Chronic Plan: Will continue with lactulose. Overall stable. No encephalopathy noted. Qualifiers: (11) Thrombocytopenia Onset Date: 06/07/16 Current Visit: No Status: Chronic Plan: This is chronic likely related to her liver disease. Will monitor closely. No need for transfusion of platelets unless the patient has bleeding. No need for DVT prophylaxis due to thrombocytopenia. Discharge Plan: Residential Plan to discharge in: 48 Hours Time Spent Managing Pts Care (In Minutes): 55
--- NOTE | 2017-09-05 15:54 | RAD REPORT ---
[facility] 2[facility]57 [facility] CLINICAL HISTORY: Device placement central venous catheter placement COMPARISON: September 02, 2017 FINDINGS: The visualized lungs appear clear of acute infiltrate. The left lower lateral lung is not included in the field of view and is not evaluated. A pneumothorax is not seen A central venous catheter has its limbs in the proximal superior vena cava. The heart is normal size
--- NOTE | 2017-09-05 17:48 | RAD REPORT ---
EXAM DESCRIPTION: VAS - Extrem Venous W Compress [place] - 09/05/2017 4:55 pm CLINICAL HISTORY: Leg pain and swelling COMPARISON: None. TECHNIQUE: Real-time sonographic evaluation of the bilateral lower extremity deep venous systems was performed. FINDINGS: Normal compressibility, flow augmentation, phasic flow and spontaneous flow are identified in the left and right lower extremity deep venous systems. No intraluminal filling defects seen. IMPRESSION: No DVT in either lower extremity.
[2017-09-05] MEDS: ARIPiprazole 5 MG TAB PO SCH (21:18)
[2017-09-06] MEDS: HYDROCODONE/APAP 7.5/325 MG TAB PO PRN ×3 (02:04→18:22)
--- NOTE | 2017-09-06 02:31 | PN ---
Date of Progress Note: 09/05/2017 Chief Complaint: Acute kidney injury, severe; nonoliguric, associated with fluid overload. Her creatinine level is improving in response to dialysis. History Of Present Illness: The patient received daily dialysis and last dialysis was done yesterday. The patient has fluid overload, anasarca, upper and lower extremity edema. She is complaining of some neck area pain, and venous Doppler of upper extremity was scheduled and did not show DVT. Lower extremity Doppler was ordered because of persistent swelling, worsening of swelling in the legs despite dialysis done with ultrafiltration. Review of Systems: Denies fever or chills. Denies nausea or vomiting. Physical Examination: LUNGS: Clear to auscultation bilaterally. HEART: S1 and S2. ABDOMEN: Soft, benign. EXTREMITIES: 3+ edema. Laboratory Data: Hemoglobin 8.9, WBC 2.0, platelet count 55,000. Chemistries showed sodium 139, potassium 4.1, chloride 105, CO2 26, BUN 15, creatinine 2.27 , magnesium 1.7, phosphorus 2.6, calcium 8.3. Impression And Plan: 1. Acute kidney injury. The patient has multiple medical problems including history of chronic liver disease. She was found to have pancytopenia. I consulted Hematology for thrombocytopenia and pancytopenia. The patient was currently scheduled for a renal biopsy, although she may need an evaluation for pancytopenia before biopsy can be scheduled. The patient is high-risk biopsy and today she is somewhat reluctant to have biopsy done. The patient may need a platelet transfusion with procedure. 2. Hypomagnesemia, replacement as needed. 3. Hypertension. Blood pressure is in acceptable control. 4. Anemia. The patient may need blood transfusion. Continue RENETTA. 5. Fluid overload. The patient will have dialysis with ultrafiltration tomorrow. 6. Lower extremity edema. Venous Doppler of lower extremity was scheduled to rule out DVT. I spent total 36 min including 25 min to coordinate care plan. LINH/VANIA Voice ID: [id number] Report ID: [id number] JOY
[2017-09-06 04:49] LABS: Albumin 3.1 g/dL (3.2-5.5); Magnesium 1.8 mg/dL (1.8-2.5); Phosphorus 2.8 mg/dL (2.5-4.3); Potassium 4.1 mEq/L (3.6-5.0)
[2017-09-06 04:55] LABS: Absolute Lymphocytes (CBC) 0.7 K/uL (0.7-4.9); Absolute Monocytes 0.3 K/uL (0.1-1.3); Absolute Neutrophil 1.7 K/uL (1.8-8.0); Eosinophils % 8.6 % (0-4.4); Hematocrit 27.1 % (36.0-45.0); Lymphocytes % 23.3 % (15.3-44.8); MCH 30.8 pg (27.0-35.0); MPV 9.1 fL (7.6-11.3); RBC Red Blood Cell Count 2.88 M/uL (3.86-4.86)
[2017-09-06 05:02] VITALS: BMI 33.8
[2017-09-06] MEDS ORDERED: MAGNESIUM SULFATE 1 gm IVPB 1 GM/100 ML BAG IV ONE (05:32)
[2017-09-06] MEDS: PANTOPRAZOLE 40MG TABLET PO SCH (06:20)
[2017-09-06] MEDS: INSULIN -REGULAR HUMAN 50 UNIT/0.5 ML ML SQ SCH ×4 (07:30→21:00)
[2017-09-06] MEDS: BUPROPRION HCL S.R. 150MG TAB PO SCH ×2 (08:41→23:56)
[2017-09-06] MEDS: MULTIVIT W/ MINERAL TAB PO SCH (08:41)
[2017-09-06] MEDS: ASCORBIC ACID 500 MG TABLET PO SCH ×2 (08:41→23:54)
[2017-09-06] MEDS: OCTREOTIDE ACETATE 100 MCG/ML SQ SCH ×2 (08:41→23:55)
[2017-09-06] MEDS: SODIUM BICARB 325 MG TAB PO SCH ×2 (08:41→21:00)
[2017-09-06] MEDS: GABAPENTIN 100 MG CAP PO SCH ×2 (08:41→23:53)
[2017-09-06] MEDS: MAGNESIUM OXIDE 400 MG TAB PO SCH ×2 (08:41→23:53)
[2017-09-06] MEDS: LACTULOSE 20 GM/30 ML UCUP PO SCH ×3 (08:42→23:54)
[2017-09-06] MEDS: ALBUMIN HUMAN 25% 100 ML IV SCH ×2 (08:42→23:55)
[2017-09-06] MEDS: NYSTATIN PWDR 100000 UNIT/GM TOP SCH ×2 (08:43→23:00)
--- NOTE | 2017-09-06 19:07 | CON ---
Date of Consultation: 09/06/2017 A 51-year-old female. Dr. Valencia. Reason For Consultation: 1.History of hepatitis C. 2.Anemia. History Of Present Illness: Ms. Mackay is a 51-year-old female, who has diabetes and hypertension. She had congestive heart failure and pericardial effusion in the past. She had chronic kidney dise ase that has deteriorated to complete renal failure and as a result, she is undergoing dialysis. She was also found to be hepatitis C positive. According to her, it has never been treated. She denies any abdominal pain, denies any hematemesis, melena, or hematochezia, or excessive bleeding tendency. Past Medical History: As elaborated above. Past Surgical History: . Family History: Denies any gastrointestinal malignancy in the family. Social History: No alcohol or tobacco. No history of IV drug use. However had blood transfusion in the past. Psych History: Denies any depression or for any psych history. Review of Systems: General: Denies any fever, chills. Generalized weakness. Positive anorexia. Hepatologic: Other than hepatitis C, denies any history of jaundice, hepatitis, or any other liver i njury. Pulmonary: no shortness of breath, cough, or expectoration. Cardiac: No palpitation, heart murmur. No orthopnea or dyspnea. GI: No new symptoms. Has occasional heartburn and indigestion. No odynophagia, dysphagia. Genitourinary: As elaborated above. Musculoskeletal: Generalized weakness. Dermatologic: Some pruritus. No discoloration. Physical Examination: General: Young female, moderately obese. No other acute distress noted. Hemodynamic respiratory pr ofile within normal range. HEENT: Atraumatic, normocephalic. Oropharynx is clear. Positive pallor. No icterus. Neck: Supple. No lymphadenopathy. Trachea central in position. Chest: Clear to auscultation and percussion. Cardiovascular: Normal S1, S2. No S3, no S4. Abdomen: Soft, nontender, nondistended. Excellent bowel sounds in all quadrants. No hepatomegaly. No splenomegaly. No succussion splash. No other acute tenderness. Extremities: Upper extremities normal. Symmetrical lower extremity bilateral edema. Neurological: Alert, oriented x3. Intact memory, mentation, and judgment. Can move all parts of ex tremities without any other problem. Diagnostic Data: Reviewed and analyzed. Hemoglobin and hematocrit 8.9 and 27. Hepatitis C positive . Albumin is 3.0. LFTs are not available. Impression, Plan, And Recommendation: Ms. Mackay is a 51-year-old female with history of hepatitis C. She has never been treated for hepatitis C. At this time, she is undergoing acute renal dialysi s due to acute renal failure. She has multiple other problems including diabetes, history of peptic ulcer disease, and congestive heart failure. Therefore, at this point, I will not recommend any furt her detailed workup for hepatitis C. She needs to be stabilized on renal failure and renal dialysis. Once she is acute of this condition on an outpatient basis, she was advised to follow up with me so we can undertake the workup. At that time, based upon our workup, we will consider hepatitis C saman tment; however, in this case, it will be also important to rule out cirrhosis with low albumin. I have had a detailed discussion with the patient regarding the indications, contraindications, possi ble complications, alternatives of hepatitis C treatment and other workup. Also given the renal failure, we also have to be careful what medication to use for hepatitis C. Once all of this things are settling workup will be undertaken and she will be evaluated for hepatiti s C treatment. Lastly, I have addressed all of her questions to her satisfaction. RIGO/VANIA Voice ID: [id number] Report ID: [id number]
--- NOTE | 2017-09-06 19:43 | PN ---
Date of Progress Note: 09/06/2017 History: The patient seen and examined. Chart reviewed and case discussed with RN. The patient is doing well. Has leg swelling. No acute events overnight. Family present at bedside. Treatment plan explained. All questions answered. Case discussed with Dr. Tyler. The patient's platelets are too low for kidney biopsy. Review of Systems: Negative except as above. Medications: Reviewed. Physical Examination: Vital Signs: Temperature 98, heart rate 80, blood pressure 100/61, respirations 18, and OS 97% on room air. General: Awake, alert, oriented in 3, some mild distress. Obese, BMI 33. CV: S1, S2. No murmurs. Regular rate and rhythm. Peripheral pulses present bilaterally. Respiratory: Moving air well bilaterally. No wheezing. No stridor. No use of accessory muscles. Gastrointestinal: Abdomen is soft, nontender, nondistended. Positive bowel sounds. Extremities: No clubbing, cyanosis. Peripheral edema is present. Neuro: Nonfocal. Laboratory Data: Sodium 138, potassium 4.1, chloride 107, CO2 24, BUN 22, creatinine 3.25, glucose 136, calcium 8.5, magnesium 1.8. Albumin 3.1. WBC 3, H and H 8.9 and 27, platelets 232, neutrophils 85%. Hepatitis C RNA level 1 million [id number]. Urine culture shows Enterococcus faecium. Blood cultures no growth to date. Assessment And Plan: A 51-year-old female with: 1. Chronic kidney disease stage 4. Creatinine getting worse. The patient not a candidate for renal biopsy due to platelets being very low due to her hepatitis C. Discussed case with Dr. Tyler, recommends treating hepatitis C for improvement in kidney disease, awaiting dialysis placement. The patient will be going for dialysis again today. 2. Lower extremity edema. Continue diuretics, Aldactone. 3. Chest pain. Cardiac stress test does not show any stress-induced ischemia. EF 58%. Cardiology on board. 4. Anemia of chronic disease. Hemoglobin, will transfuse if less than 7. We will monitor H and H, likely anemia of chronic disease related to chronic kidney disease, stage 4. 5. Generalized depression with anxiety. 6. Gastroesophageal reflux disease. We will continue PPI without esophagitis. 7. Essential hypertension, stable. The patient requiring midodrine. 8. Hepatitis C and liver cirrhosis. The patient will need treatment for hepatitis C and possible GI. 9. Liver cirrhosis. Continue lactulose. The patient is not encephalopathic. 10. Thrombocytopenia related to liver disease. We will monitor platelets. Transfuse, if the patient is bleeding. 11. Gastrointestinal and deep venous thrombosis prophylaxis. No chemical anticoagulation due to thrombocytopenia. 12. Diabetes mellitus type 2 with long-term use of insulin with hyperglycemia and continue sliding scale insulin. /VANIA Voice ID: [id number] Report ID: [id number] MTDD
[2017-09-06] MEDS: ARIPiprazole 5 MG TAB PO SCH (23:15)
[2017-09-07] MEDS: HYDROCODONE/APAP 7.5/325 MG TAB PO PRN ×2 (03:46→15:05)
--- NOTE | 2017-09-07 03:53 | PN ---
Date of Progress Note: 09/06/2017 Subjective: The patient feeling weak, otherwise no event. Physical Examination: Vital Signs: When I saw the patient, blood pressure 154/70, pulse of 89. Chest: Clear to auscultation. Heart: S1, S2. Regular. Abdomen: Soft, nontender. Extremities: +1 edema. Venous stasis. Neurologic: Alert, no focal. Laboratory Data: WBC 3. H and H 8.9/27.1, platelets 32. Sodium 138, potassium 4.1, bicarb 24, BUN 22, creatinine 3.2, calcium 8.5, phosphorus 2.8, magnesium 1.8. Current Medications: The patient on its include: 1.Nystatin. 2.Albumin. 3.Heparin. 4.Abilify. 5.Tylenol. 6.Lactulose. 7.Sodium bicarb. 8.Gabapentin. 9.Pantoprazole. 10.Insulin. Assessment And Plan: 1.Acute kidney injury on advanced chronic kidney disease, anuric. I am going to continue the patien t on dialysis. We will arrange for dialysis tomorrow. 2.Hypertension, controlled, optimal. We will utilize the blood pressure for more ultrafiltration to establish better volume control. 3.Acute kidney injury, unknown etiology, possible secondary to cryo. Could not do kidney biopsy given the thrombocytopenia. Will follow up with GI Hepatology given the h igh titer of hepatitis C. CHARLES Voice ID: [id number] Report ID: [id number]
[2017-09-07 04:47] LABS: HBsAG Nonreactive (Nonreactive)
[2017-09-07 04:49] LABS: Absolute Lymphocytes (CBC) 0.6 K/uL (0.7-4.9); Absolute Monocytes 0.4 K/uL (0.1-1.3); Absolute Neutrophil 2.1 K/uL (1.8-8.0); Basophils % 0.9 % (0-1.3); Eosinophils % 5.9 % (0-4.4); Hematocrit 27.7 % (36.0-45.0); Lymphocytes % 19.2 % (15.3-44.8); MCH 30.8 pg (27.0-35.0); MCV 93.3 fL (80-100); MPV 9.3 fL (7.6-11.3); Monocytes % 11.2 % (3.3-12.3); RBC Red Blood Cell Count 2.97 M/uL (3.86-4.86)
[2017-09-07 05:02] LABS: Potassium 4.4 mEq/L (3.6-5.0)
[2017-09-07 05:04] LABS: Magnesium 1.8 mg/dL (1.8-2.5)
[2017-09-07] MEDS ORDERED: MAGNESIUM SULFATE 1 gm IVPB 1 GM/100 ML BAG IV ONE (06:00)
[2017-09-07] MEDS: PANTOPRAZOLE 40MG TABLET PO SCH (06:27)
[2017-09-07] MEDS: INSULIN -REGULAR HUMAN 50 UNIT/0.5 ML ML SQ SCH ×4 (07:30→21:00)
[2017-09-07] MEDS: ACETAMINOPHEN 500 MG TAB PO PRN (07:32)
[2017-09-07] MEDS: NYSTATIN PWDR 100000 UNIT/GM TOP SCH (09:00)
[2017-09-07] MEDS: ALBUMIN HUMAN 25% 100 ML IV SCH (10:07)
[2017-09-07] MEDS: LACTULOSE 20 GM/30 ML UCUP PO SCH ×3 (10:08→23:15)
[2017-09-07] MEDS: GABAPENTIN 100 MG CAP PO SCH ×2 (10:09→23:14)
[2017-09-07] MEDS: MAGNESIUM OXIDE 400 MG TAB PO SCH ×2 (10:09→23:13)
[2017-09-07] MEDS: BUPROPRION HCL S.R. 150MG TAB PO SCH ×2 (10:09→23:22)
[2017-09-07] MEDS: MULTIVIT W/ MINERAL TAB PO SCH (10:09)
[2017-09-07] MEDS: ASCORBIC ACID 500 MG TABLET PO SCH ×2 (10:09→23:14)
[2017-09-07] MEDS: OCTREOTIDE ACETATE 100 MCG/ML SQ SCH ×2 (10:10→23:15)
[2017-09-07 17:12] LABS: RBC Red Blood Cell Count 2.87 M/uL (3.86-4.86)
[2017-09-07 18:06] LABS: C-Reactive Protein 21.2 mg/L (<10.0); Folic Acid, (Folate) 16.7 ng/ml (>5.21)
--- NOTE | 2017-09-07 21:31 | CON ---
Date of Consultation: 09/07/2017 Additional Consulting Physician: Sarah Tracey M.D. Additional Admitting Physician: Bryon Polo D.O. Reason For Consultation: Thrombocytopenia. History Of Present Illness: Ms. Mackay is a 51-year-old female with multiple medical pro blems, who was hospitalized on the 31 of August with complaints of severe fatigue, swollen extremities, and shortness of breath. She was found to be in renal failure and possibly congestive heart failure and was hospitalized for management of the same. CBC done on admission revealed a platelet count of 66,000, hemoglobin of 7.5, and white blood count of 4.200. She was scheduled for a Tesio catheter f or dialysis and renal biopsy, I was consulted regarding management and evaluation of the thrombocytop enia Ms. Mackay gives a history of easy bleeding and bruising. She says she often bleeds from the gums, but denies any bleeding rectally. She denies any history of hematemesis or melena. There is a hist ory of packed red blood cell transfusion during this hospitalization, and within the past year. She received 3 units of blood and 2 units of platelets. She has a known history of cirrhosis, hepatitis C, and splenomegaly. The spleen was noted to be enla rged at 20 cm this time. She denies a history of recurrent infections, though was hospitalized for U TI last month and was on extended IV antibiotic therapy. She denies any fever or chills at this time . There is a history of diabetes diagnosed 3 years ago, which has been poorly controlled. 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 She gives a history of ano rexia, which has been progressively worsening, no nausea or vomiting described. She believes she has lost some weight, but is unable to quantify it. Review of Systems: Otherwise unremarkable. Past Medical History: Significant for: 1.Diabetes mellitus type 2. 2.Hypertension. 3.Hyperlipidemia. 4.Cirrhosis of the liver. 5.Hepatitis C. 6.Peptic ulcer disease. 7.Anxiety and depression. 8.Congestive heart failure. Past Surgical History: Significant for: 1. 27 years ago. 2.Tonsillectomy. 3.Coronary angiogram. Current Medications: As follows; [place] 7.5/325 one tablet p.o. t.i.d. p.r.n. for pain, Abilify 10 mg p.o. scheduled at bedtime, vitamin C 500 mg p.o. b.i.d., Wellbutrin SR 150 mg b.i.d., gabapentin 300 mg p.o. b.i.d., insulin on a sliding scale, lactulose 10 g p.o. t.i.d. scheduled, magnesium oxide 40 0 mg p.o. b.i.d., octreotide 100 mcg subcu b.i.d. scheduled, Zofran 4 mg IV q.6 hours p.r.n. for naus ea, and Protonix 40 mg p.o. daily. Allergies: SHE HAS NO KNOWN DRUG ALLERGIES. Social And Family History: She is a nonsmoker and does not drink alcohol and has never drank alcohol . She is currently living at the [facility] for the past year. Her father f rom diabetes and cirrhosis of the liver in his 60s. Her mother is alive and well in her late 60s. S he had 3 siblings, 1 from depression and suicide in his 20s. She has 3 children who are in generally good health. Physical Examination: General: Ms. Mackay was resting comfortably when I visited her earlier today. General physical ex amination reveals a chronically ill-looking lady who is appears to be older than her stated age. Vital Signs: Temperature, she has been afebrile. It was 97.3 Fahrenheit at noon today, pulse 79, re spirations 16, blood pressure 109/58, and saturating at 97%. SKIN: Reveals pallor with extensive bruising around the Tesio catheter in the right infraclavicular area and in both lower extremities as well as her arms. HEENT: Reveals gum disease with inflamed gums, but no bleeding was noted. No ulcers or mucositis or thrush was noted. Lymph Node: Survey reveals no palpable lymphadenopathy. Chest: Clear to auscultation. Heart: Sounds reveal normal S1, S2. No gallops or murmurs were heard. Abdomen: Soft, not distended. Spleen is palpable 3 cm below the subcostal margin in the midclavicul ar line. Liver was not palpable. Bowel sounds were present. Extremities: Show evidence of 2+ edema. Lab Data: CBC from this morning reveals a white count of 3400, hemoglobin was 9.1, and platelet coun t was 33,000, absolute neutrophil count was 2100. An iron profile was done during this hospitalizati on, which revealed an iron of 214 mcg/dL, transferrin saturation was 45%, ferritin was 385.2, B12 and folic acid were normal. Comprehensive metabolic panel last done on 09/03/2017 revealed a total bilirubin of 2.0, AST of 80, A LT 28, alkaline phosphatase was 130, albumin was decreased at 2.8 g/dL. Assessment And Plan: Ms. Mackay ise a 51-year-old with multiple medical problems including cirrhos is of the liver and untreated hepatitis C as well as end-stage renal disease, who presents with. 1.Thrombocytopenia. Review of her previous labs in [facility] going back to 2005 reveals that she has been chronically thrombocytopenic since 2012. Her baseline platelet count runs between 40,000-70,00 0 and has been steadily declining. 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 We discussed that both herminio tropenia and anemia are also likely due to chronic liver disease, portal hypertension and hyperspleni sm. I stressed the need for hepatic evaluation and treatment of the untreated hepatitis C in order t o help improve her blood counts and prevent further worsening. She was seen by Dr. Purvis yesterday an d the plan is to have a followup with him to address the underlying cause for this thrombocytopenia. In the meanwhile, I would suggest to transfuse single donor platelets if her platelet count drops to below 10,000 or if a surgical intervention is planned. In the case of surgery, preop platelet trans fusion to maintain a platelet count of 50,000 or more is more than adequate. 2.Neutropenia. She has a mild neutropenia, which again could be due to hypersplenism, but also due to chronic illness and chronic antibiotic therapy. Her absolute neutrophil count is still respectabl e. No specific treatment is warranted at this time. 3.Anemia. This is usually multifactorial. There is no evidence of iron or B12 folate deficiency. However, she does likely have anemia of chronic disease due to chronic liver disease as well as chron ic kidney disease. The anemia will be addressed with erythropoietin and iron as necessary during sonia lysis. Thank you for asking us to see her. Please do not hesitate to call us if you have any questions. SRAVAN/VANIA Voice ID: [id number] Report ID: [id number]
[2017-09-07] MEDS: ARIPiprazole 5 MG TAB PO SCH (23:14)
[2017-09-08] MEDS: HYDROCODONE/APAP 7.5/325 MG TAB PO PRN ×2 (01:06→10:23)
[2017-09-08] MEDS: ALBUMIN HUMAN 25% 100 ML IV SCH ×2 (01:06→08:49)
--- NOTE | 2017-09-08 03:33 | PN ---
Date of Progress Note: 09/07/2017 Subjective: The patient had no event, waiting for her dialysis. Physical Examination: Vital Signs: When I saw the patient, her blood pressure of 107/53, pulse of 75. Chest: Clear to auscultation. Heart: S1, S2. Regular. Abdomen: Soft, nontender. Extremities: +1 edema. Venous stasis, bilateral. Laboratory Data: WBC 3.4, H and H 9.1/27.7, and platelets 33. Sodium 137, potassium 4.4, bicarb 24, BUN 17, creatinine 2.7, and calcium 8.6. Assessment And Plan: 1.End-stage renal disease, stable, slightly on the wet side. We going to continue her dialysis. We had long discussion with the patient regarding possible etiology of paraneoplastic, she needs close followup, or could be secondary to prior secondary to hepatitis. The patient really needs close foll owup. I could not do any kidney biopsy currently because of the thrombocytopenia and the risk of ble ed. The patient is evaluated by GI and plan to evaluate for further treatment as outpatient. 2.Hypertension, controlled, optimal. Continue current medication. JAYLA/VANIA Voice ID: [id number] Report ID: [id number]
[2017-09-08 06:22] LABS: Absolute Lymphocytes (CBC) 0.6 K/uL (0.7-4.9); Absolute Monocytes 0.3 K/uL (0.1-1.3); Absolute Neutrophil 1.2 K/uL (1.8-8.0); Basophils % 0.8 % (0-1.3); Eosinophils % 8.5 % (0-4.4); Hematocrit 25.3 % (36.0-45.0); Lymphocytes % 25.1 % (15.3-44.8); MCH 30.5 pg (27.0-35.0); MPV 9.1 fL (7.6-11.3); Monocytes % 13.8 % (3.3-12.3); RBC Red Blood Cell Count 2.72 M/uL (3.86-4.86)
[2017-09-08] MEDS: PANTOPRAZOLE 40MG TABLET PO SCH (06:28)
[2017-09-08 06:37] VITALS: TEMP 97.1
[2017-09-08 06:38] LABS: Magnesium 1.8 mg/dL (1.8-2.5); Potassium 3.9 mEq/L (3.6-5.0)
[2017-09-08] MEDS ORDERED: MAGNESIUM SULFATE 1 gm IVPB 1 GM/100 ML BAG IV ONE (06:45)
--- NOTE | 2017-09-08 07:27 | DS ---
Date of Discharge: 09/07/2017 Consultants: Dr. Tyler with Nephrology, Dr. Purvis with GI, Dr. Eduardo, and Dr. Stevenson. Admitting Diagnoses: 1.Diabetes mellitus type 2 with long-term use of insulin with hyperglycemia. 2.Acute on chronic kidney disease stage 4. 3.Lower extremity edema. 4.Chest pain. 5.Anemia of chronic disease, stage 4. 6.Depression with anxiety. 7.Gastroesophageal reflux disease without esophagitis. 8.Essential hypertension. 9.Hepatitis C with liver cirrhosis. 10.Liver cirrhosis. 11.Thrombocytopenia secondary to liver cirrhosis. Discharge Diagnoses: 1.Acute on chronic kidney disease stage 4, started on dialysis. 2.Lower extremity edema secondary to above. We will continue diuretics with Aldactone. 3.Atypical chest pain. Cardiac stress test done did not show any stress-induced ischemia. EF 58%. 4.Anemia of chronic disease, secondary to chronic kidney disease stage 4. 5.Generalized depression with anxiety. 6.Gastroesophageal reflux disease without esophagitis. PPI. 7.Essential hypertension, stable. 8.Hepatitis C with liver cirrhosis. The patient will need to be started on treatment for hepatitis C due to increased viral load. 9.Liver cirrhosis. Continue lactulose. 10.Thrombocytopenia, secondary to above. 11.Diabetes mellitus type 2 with hyperglycemia with long-term use of insulin. Hospital Course: The patient is a 51-year-old female, half-way resident, who came in with multip le complaints including fatigue, edema, and chest pain. The patient was found to have worsening jacob a due to kidney function. The patient was initially started on diuretics, however, did not improve, needed to be started on dialysis. The patient was seen by Dr. Vallejo who placed a temporary dialysis catheter and the patient was started on dialysis by Dr. Tyler. The patient did well. Her electro lytes improved. Her kidney function also showed improvement. The patient however did have some thro mbocytopenia, however, no active bleeding. This was thought to be secondary to her alcoholic liver c irrhosis with a hepatitis C related liver cirrhosis. The patient was seen by GI and recommendations were made to start hepatitis C treatment once her acute issues have resolved as an outpatient. The p atient was also seen by Cardiology and had a stress test done due to elevated troponin level. No str ess-induced ischemia was seen. The patient also had Doppler venous studies done, did not show any DV Ts. The patient was also found to have UTI with urine culture growing Enterococcus faecalis. Echoca rdiogram was done, which showed an EF of 73%. No wall motion abnormality. The patient otherwise did well. Plan for kidney biopsy was postponed due to thrombocytopenia. The patient was then cleared f or discharge from [facility] consultant's standpoint. The patient will be discharged back to half-way in a fair condition. Activity: Fall precautions. Medications: As per medication reconciliation list. Followup: Follow up with primary care physician in 2-3 days. Follow up with fiscal assistant, Dr. Leon phan, in 2 weeks. Follow up with GI, Dr. Purvis, in 2 weeks. Follow up with Cardiology, Dr. Eduardo, i n 4 weeks. Return to ER for worsening condition. Diet: Renal. Total time spent discharging the patient was 41 minutes. Physical Examination: General: Awake, alert, oriented, no acute distress. CV: S1, S2. No murmurs. Respiratory: Moving air well bilaterally. No wheezing. Gastrointestinal: Abdomen is soft, nontender, and nondistended. Positive bowel sounds. Extremities: No clubbing, cyanosis. Mild pedal edema. SA/MODL Voice ID: [id number] Report ID: [id number]
[2017-09-08] MEDS: INSULIN -REGULAR HUMAN 50 UNIT/0.5 ML ML SQ SCH ×2 (07:30→11:30)
[2017-09-08 08:14] VITALS: BP 116/59
[2017-09-08] MEDS: LACTULOSE 20 GM/30 ML UCUP PO SCH ×2 (08:49→14:00)
[2017-09-08] MEDS: GABAPENTIN 100 MG CAP PO SCH (08:50)
[2017-09-08] MEDS: ASCORBIC ACID 500 MG TABLET PO SCH (08:50)
[2017-09-08] MEDS: MAGNESIUM OXIDE 400 MG TAB PO SCH (08:50)
[2017-09-08] MEDS: MULTIVIT W/ MINERAL TAB PO SCH (08:50)
[2017-09-08] MEDS: OCTREOTIDE ACETATE 100 MCG/ML SQ SCH (08:50)
[2017-09-08] MEDS: BUPROPRION HCL S.R. 150MG TAB PO SCH (08:51)
[2017-09-08 09:41] VITALS: O2SAT 96
[2017-09-08 09:59] LABS: Blood Morphology Comment NOT SEEN (NOT SEEN); Platelet Estimate DECR; Urine White Blood Cell Casts OK
[2017-09-08 11:34] LABS: Urine Appearance CLOUDY; Urine Bilirubin NEGATIVE (NEG); Urine Blood NEGATIVE (NEG); Urine Color YELLOW; Urine Glucose NEGATIVE (NEG); Urine Protein NEGATIVE (NEG); Urine pH 6.5 (5.0-7.0)
[2017-09-08 11:54] LABS: Urine Bacteria >50 /HPF (<20); Urine Culture Reflex Order REFLEXED; Urine RBC NONE SEEN /HPF (NONE SEEN)
--- NOTE | 2017-09-08 13:32 | PN ---
Date of Progress Note: 09/08/2017 Subjective: The patient is seen and examined. Chart reviewed and case discussed with RN. The patie nt was discharged yesterday; however, did not go to hemodialysis until late at night and therefore wa s unable to be discharged at that time back to the custodial. The patient otherwise doing well. Family at bedside. Treatment plan reviewed. All questions answered. Review of Systems: Negative except as above. Medications: Reviewed. Physical Examination: Vital Signs: Temperature 97.1, heart rate 74, blood pressure 115/59, respirations 14, O2 saturation 96% on room air. General: Awake, alert, oriented x3. No acute distress. Obese female, BMI 33. CV: S1, S2. No murmurs. Peripheral pulses present. Respiratory: Moving air well bilaterally. No wheezing. Gastrointestinal: Abdomen is soft, nontender, nondistended. Positive bowel sounds. Extremities: No clubbing, cyanosis, edema. Neurologic: Nonfocal. Laboratory Data: UA shows 3+ leukocyte esterase, greater than 50 bacteria, less than 5 wbc. WBC 2.4 , H and H 8.3 and 25.3, platelets 32, neutrophils 51%. Sodium 136, potassium 3.9, chloride 105, CO2 24, BUN 13, creatinine 2.46, glucose 98, calcium 8.5, magnesium 1.8. Assessment And Plan: 1.Acute on chronic kidney disease, stage 4. Dialysis has been initiated. 2.Lower extremity edema secondary to above, improved. The patient placed on Aldactone. 3.Atypical chest pain. Cardiac stress test negative, EF 58%, resolved. 4.Urinary tract infection secondary to Enterococcus faecium. Repeat UA also positive. We will cont inue with vancomycin with dialysis. 5.Generalized anxiety with depression. 6.Anemia of chronic disease secondary to chronic kidney disease, stage 4. Monitor H and H. Stable. 7.Thrombocytopenia secondary to hepatitis C. 8.Hepatitis C with liver cirrhosis. The patient needs outpatient followup with GI for treatment of hepatitis C. 9.Essential hypertension, stable. 10.Gastroesophageal reflux disease without esophagitis. Continue PPI. 11.Diabetes mellitus type 2 with hyperglycemia with long-term use of insulin, stable. Plan: Discharge back to custodial. SA/MODL Voice ID: [id number] Report ID: [id number]
--- NOTE | 2017-09-09 00:15 | PN ---
Date of Progress Note: 09/08/2017 Chief Complaint: Acute kidney injury. History Of Present Illness: Renal function has not improved. The patient remains dialysis dependent. The patient was found to have edema. The patient has pancytopenia. I ordered to consult Hematology for pancytopenia. Renal biopsy canceled because of thrombocytopenia. The patient has high risk for complicated renal biopsy procedure. Review of Systems: Denies fever, chills. Physical Examination: Lungs: Clear to auscultation bilaterally. Heart: S1, S2. Abdomen: Soft, benign. Extremities: Edema present in both legs. Laboratory Data: BUN 17, creatinine 2.7, calcium 8.6, hemoglobin 9.1, WBC is 3.4. Impression And Plan: 1. Acute kidney injury, likely the patient is dialysis dependent and has end- stage renal disease. Continue dialysis 3 times per week. 2. Hypertension. Blood pressure optimally controlled. 3. Acute kidney injury. Etiology may include, but it not limited to acute tubular necrosis. Serology workup was done to rule out vasculitis and ANCA negative. 4. The patient will follow up with Nephrology, continue dialysis 3 times per week. LINH/VANIA Voice ID: [id number] Report ID: [id number] JOY
--- NOTE | 2017-09-09 13:41 | RAD REPORT ---
EXAM DESCRIPTION: RAD - Fluoroscopy <1 Hour - 09/05/2017 9:47 am CLINICAL HISTORY: Venous catheter insertion. COMPARISON: None. FINDINGS: Fluoroscopic imaging is submitted from placement of a venous catheter. Details of the pro cedure not available.
== END 2017-09-08 14:03 | DRG 674 ==
LOC: ER 15:17 → ERHOLD 18:55 → 4TH 22:17
PROVIDERS: ADMIT Internal Medicine; ATTEND Family Medicine
PROC: 02HV33Z Insertion of Infusion Device into Superior Vena Cava, Percutaneous Approach (ICD-10-PCS; 2017-09-02)
PROC: 5A1D70Z Performance of Urinary Filtration, Intermittent, Less than 6 Hours Per Day (ICD-10-PCS; 2017-09-02)
PROC: 0JH60XZ Insertion of Tunneled Vascular Access Device into Chest Subcutaneous Tissue and Fascia, Open Approach (ICD-10-PCS; principal; 2017-09-02 09:00)
PROC: 5A1D70Z Performance of Urinary Filtration, Intermittent, Less than 6 Hours Per Day (ICD-10-PCS; 2017-09-03)
PROC: 5A1D70Z Performance of Urinary Filtration, Intermittent, Less than 6 Hours Per Day (ICD-10-PCS; 2017-09-04)
PROC: 5A1D70Z Performance of Urinary Filtration, Intermittent, Less than 6 Hours Per Day (ICD-10-PCS; 2017-09-06)
PROC: 5A1D70Z Performance of Urinary Filtration, Intermittent, Less than 6 Hours Per Day (ICD-10-PCS; 2017-09-07)
DX: N17.9 Acute kidney failure, unspecified (principal); I12.0 Hypertensive chronic kidney disease with stage 5 chronic kidney disease or end stage renal disease; N39.0 Urinary tract infection, site not specified; K70.30 Alcoholic cirrhosis of liver without ascites; E11.22 Type 2 diabetes mellitus with diabetic chronic kidney disease; N18.4 Chronic kidney disease, stage 4 (severe); E03.9 Hypothyroidism, unspecified; K57.90 Diverticulosis of intestine, part unspecified, without perforation or abscess without bleeding; K21.9 Gastro-esophageal reflux disease without esophagitis; F41.8 Other specified anxiety disorders; D63.1 Anemia in chronic kidney disease; B18.2 Chronic viral hepatitis C; D69.6 Thrombocytopenia, unspecified; E11.40 Type 2 diabetes mellitus with diabetic neuropathy, unspecified; K27.9 Peptic ulcer, site unspecified, unspecified as acute or chronic, without hemorrhage or perforation; N83.209 Unspecified ovarian cyst, unspecified side; E83.42 Hypomagnesemia; E87.70 Fluid overload, unspecified; D64.9 Anemia, unspecified; E11.65 Type 2 diabetes mellitus with hyperglycemia; R07.89 Other chest pain; N18.6 End stage renal disease; D70.9 Neutropenia, unspecified; B95.2 Enterococcus as the cause of diseases classified elsewhere
CPT/HCPCS: 36415; 51702; 71045; 76000; 76770; 78452; 80048; 80053; 80069; 80076; 81001; 81003; 81015; 82140; 82550; 82553; 82570; 82607; 82728; 82746; 82962; 83540; 83615; 83735; 83880; 83970; 84132; 84156; 84300; 84466; 84484; 85014; 85018; 85025; 85044; 85049; 85610; 86038; 86140; 86160; 86317; 86704; 86850; 86900; 86901; 87040; 87077; 87086; 87088; 87186; 87340; 87522; 90935; 93005; 93017; 93306; 93970; 96374; 97163; 99285; A9500; C1752; J0690; J1644; J2250; J2354; J2597; J2785; J3010; J3475; J7030; P9016; P9035; P9047

== ENCOUNTER 2017-10-24 08:54 | Inpatient (IN) | payer OTHER ==
[2017-10-24] MEDS ORDERED: NALOXONE 0.4 MG/ML VIAL ONE (09:29)
[2017-10-24 10:07] LABS: Absolute Lymphocytes (CBC) 0.7 K/uL (0.7-4.9); Absolute Monocytes 0.4 K/uL (0.1-1.3); Absolute Neutrophil 2.3 K/uL (1.8-8.0); Basophils % 1.3 % (0-1.3); Eosinophils % 3.3 % (0-4.4); Hematocrit 30.4 % (36.0-45.0); Lymphocytes % 20.5 % (15.3-44.8); MCH 31.3 pg (27.0-35.0); MPV 8.7 fL (7.6-11.3); Monocytes % 10.8 % (3.3-12.3); RBC Red Blood Cell Count 3.23 M/uL (3.86-4.86)
[2017-10-24 10:13] LABS: Protime INR 1.23
--- NOTE | 2017-10-24 10:22 | RAD REPORT ---
EXAM DESCRIPTION: RAD - Chest Single View - 10/24/2017 10:08 am CLINICAL HISTORY: Transient alteration of awareness, shortness of breath COMPARISON: September 05 TECHNIQUE: AP portable chest image was obtained 1006 hours . FINDINGS: Lung volumes are low. No peripheral mass or consolidation. No significant failure or volum e overload seen. Minimal failure or volume overload could be masked. Dialysis catheter is in place. H eart size normal for supine portable imaging No measurable pleural effusion and no pneumothorax. No g ross bony abnormality seen. No acute aortic findings suspected. IMPRESSION: Limited shallow inspiration portable study without a significant cardiopulmonary finding . Minimal or early stages of failure or volume overload could be masked in this setting.
--- NOTE | 2017-10-24 10:24 | RAD REPORT ---
EXAM DESCRIPTION: CT - Head Brain Wo Cont - 10/24/2017 10:10 am CLINICAL HISTORY: Transient alteration of awareness. COMPARISON: CT head July 2017 TECHNIQUE: Axial 5 mm thick images of the head were obtained without IV contrast. All CT scans are performed using dose optimization technique as appropriate and may include automated exposure control or mA/KV adjustment according to patient size. FINDINGS: No intracranial hemorrhage, mass, edema or shift of mid-line structures. No acute cortical based infarction. No cortical edema or sulcal effacement. Atrophy and chronic ischemic pattern is si milar to the comparison. No abnormal extra-axial fluid collections. Ventricles are in proportion to v olume loss. Arterial and physiologic calcifications are present. Mastoid air cells are clear. Patchy mucosal thickening changes are present. Minimal air-fluid level in the sphenoid sinus. No acute bony findings. IMPRESSION: Atrophy and chronic ischemic changes similar to comparison. No acute intracranial findin g. Air-fluid level in the sphenoid sinus could indicate sinusitis or remnant from findings seen in July . . Sinus findings are much less pronounced than seen in [place].
[2017-10-24 10:26] LABS: Albumin 2.5 g/dL (3.4-5.0); Bilirubin Total 1.6 mg/dL (0.2-1.0); Protein, Total 6.5 g/dL (6.4-8.2)
[2017-10-24 10:41] LABS: Blood Morphology Comment NOT SEEN (NOT SEEN); Platelet Estimate DECR; Urine White Blood Cell Casts OK
[2017-10-24 11:10] LABS: Urine Blood TRACE (NEG); Urine Glucose NEGATIVE (NEG); Urine Protein TRACE (NEG); Urine Specific Gravity 1.015 (1.005-1.030)
--- NOTE | 2017-10-24 11:24 | EDPHYS ---
Physician Documentation [facility] Name: Ernestina Mackay Age: 51 yrs Sex: Female : 1965 Arrival Date: 10/24/2017 Time: 08:56 Bed 3 Private MD: ED Physician Sekou Monson HPI: 10/24 11:23 This 51 yrs old Female presents to ER via EMS with complaints of Altered ps1 Mental Status. 11:23 patient is known cirrhotic, diabetic, CKD on dialysis, and CHF from ID for altered ps1 mental status. Patient was last seen at 7 am and now disoriented and not responding to questions. On evaluation she is alert but not communicating. She is protecting her airway. . Historical: - Allergies: 09:18 No Known Allergies; ph - Home Meds: 09:18 Abilify 1 mg/mL Oral soln 10 mL once daily at bedtime [Active]; acetaminophen 325 mg ph Oral tab 2 tabs every 6 hours for as needed for pain [Active]; Aldactone 25 mg Oral tab 1 tab 2 times per day [Active]; ascorbic acid (vitamin C) 500 mg tab twice a day [Active]; furosemide 20 mg Oral tab 1 tab 2 times per day [Active]; gabapentin 300 mg Oral cap 1 cap twice a day [Active]; Humalog sliding scale Sub-Q twice a day [Active]; lactulose 10 gram/15 mL (15 mL) Oral soln 30 mL 3 times per day [Active]; Levemir 100 unit/mL subcutaneous soln 25 Units SQ every morning for Type 2 Diabetes Mellitus [Active]; magnesium oxide 400 mg Oral cap 800 mg twice a day [Active]; multivitamin with minerals Oral tab daily [Active]; neomycin 500 mg Oral tab 3 tabs 2 times per day [Active]; nystatin 100,000 unit/gram Topical powd 2 times per day [Active]; Pepcid 20 mg Oral tab 1 tab once daily [Active]; propranolol 20 mg Oral tab 1 tab 3 times per day [Active]; sodium bicarbonate 650 mg Oral tab 650 mg daily [Active]; Wellbutrin SR 150 mg Oral TbER 1 tab 2 times per day [Active]; - PMHx: 09:18 Anxiety; Cellulitis; CHF; Chronic pain; Cirrhosis; Depression; Diabetes - NIDDM; ph Hepatitis; Hypertension; insomnia; - Immunization history:: Adult Immunizations unknown. - Social history:: Smoking status: unknown. - Ebola Screening: : No symptoms or risks identified at this time. ROS: 11:23 Unable to obtain ROS due to altered mental status. ps1 Exam: 11:23 Head/Face: Normocephalic, atraumatic. Eyes: Pupils equal round and reactive to light, ps1 extra-ocular motions intact. Lids and lashes normal. Conjunctiva and sclera are non-icteric and not injected. Chest/axilla: Normal chest wall appearance and motion. Nontender with no deformity. No lesions are appreciated. Respiratory: Lungs have equal breath sounds bilaterally, clear to auscultation and percussion. No rales, rhonchi or wheezes noted. No increased work of breathing, no retractions or nasal flaring. Abdomen/GI: Soft, non-tender, with normal bowel sounds. No distension or tympany. No guarding or rebound. No evidence of tenderness throughout. Skin: Warm, dry with normal turgor. Normal color with no rashes, no lesions, and no evidence of cellulitis. MS/ Extremity: Pulses equal, no cyanosis. Neurovascular intact. Full, normal range of motion. 11:23 Constitutional: The patient appears alert, listless. 11:23 Cardiovascular: Rate: bradycardic, Rhythm: regular, Pulses: no pulse deficits are appreciated. 11:23 Neuro: Orientation: to person, place, time, unable to test, altered and encephalopathic, Motor: is normal, moves all fours. Vital Signs: 09:18 BP 114 / 71; Pulse 48; Resp 12; Temp 97.2; Pulse Ox 100% on R/A; Weight 81.65 kg; ph 10:26 BP 112 / 65; Pulse 49; Resp 18; Pulse Ox 98% on R/A; ph 11:30 BP 118 / 65; Pulse 51; Resp 18; Pulse Ox 99% on R/A; ph 12:44 BP 116 / 64; Pulse 49; Resp 18; Pulse Ox 99% on R/A; ph 13:30 BP 110 / 65; Pulse 49; Resp 16; Temp 97.5; Pulse Ox 99% on R/A; ph MDM: 09:37 Patient medically screened. ps1 11:23 Data reviewed: vital signs, nurses notes, lab test result(s), radiologic studies, and ps1 as a result, I will admit patient, administer IV fluids, NG tube and lactulose. 10/24 09:37 Order name: Blood Culture Adult (2) ps1 10/24 09:37 Order name: CBC with Diff; Complete Time: 10:42 ps1 10/24 09:37 Order name: Lactate; Complete Time: 10:34 ps1 10/24 09:37 Order name: LFT's; Complete Time: 10:34 ps1 10/24 09:37 Order name: Lipase; Complete Time: 10:34 ps1 10/24 09:37 Order name: Protime (+inr); Complete Time: 10:18 ps1 10/24 09:37 Order name: Troponin (emerg Dept Use Only); Complete Time: 10:34 ps1 10/24 09:37 Order name: AMMONIA; Complete Time: 10:34 ps1 / 10:13 Order name: CBC Smear Scan; Complete Time: 10:42 EDMS 10/24 10:42 Order name: UDS; Complete Time: 13:04 ps1 10/24 10:55 Order name: Urine Dipstick--Ancillary (enter results); Complete Time: 11:21 ag 10/24 10:55 Order name: Urine --Ancillary (enter results); Complete Time: 11:21 ag 10/24 11:35 Order name: Basic Metabolic Panel EDOH 10/24 11:35 Order name: CKMB Creatine Kinase MB EDMS 10/24 09:37 Order name: Urine Test (obtain specimen); Complete Time: 10:51 ps1 10/24 09:37 Order name: Chest Single View XRAY; Complete Time: 10:34 ps1 10/24 09:37 Order name: Accucheck; Complete Time: 10:01 ps1 10/24 09:37 Order name: Cardiac monitoring; Complete Time: 10:01 ps1 10/24 09:37 Order name: EKG - Nurse/Tech; Complete Time: 10:25 ps1 10/24 09:37 Order name: CT Head Brain wo Cont; Complete Time: 10:34 ps1 10/24 10:44 Order name: EKG Electrocardiogram EDOH 10/24 11:35 Order name: CONS Physician Consult EDOH 10/24 11:35 Order name: NPO; Complete Time: 14:00 EDMS 10/24 11:35 Order name: Creatine Phosphokinase EDOH 10/24 11:35 Order name: Lactate; Complete Time: 13:44 EDOH 10/24 11:35 Order name: Urinalysis EDOH 10/24 11:35 Order name: Occult Blood EDOH 10/24 09:37 Order name: IV Saline Lock - Large Bore; Complete Time: 10:25 ps1 10/24 09:37 Order name: Labs collected and sent; Complete Time: 10:25 ps1 10/24 09:37 Order name: O2 Per Protocol; Complete Time: 10:25 [facility] 10/24 09:37 Order name: O2 Sat Monitoring; Complete Time: 10:25 ps1 10/24 09:37 Order name: Urine Dipstick-Ancillary (obtain specimen); Complete Time: 10:51 [facility] 10/24 10:35 Order name: NG Tube; Complete Time: 12:13 ps1 Administered Medications: 09:30 Drug: NARcan 0.4 mg Route: IVP; Site: left forearm; ph 10:25 Follow up: Response: No adverse reaction; No change in condition ph 10:55 Drug: NS 0.9% (30 ml/kg) 30 ml/kg Route: IV; Rate: bolus; Site: left forearm; ph 12:08 Follow up: Urine output 1000 ml; Response: No adverse reaction; IV Status: Completed ph infusion 12:07 Drug: Lactulose 30 grams Volume: 45 ml; Route: PO; ph 14:00 Follow up: Response: No adverse reaction ph Point of Care Testing: Blood Glucose: 08:58 Blood Glucose: 87 mg/dL; hj Ranges: Critical Glucose Levels:Adult <50 mg/dl or >400 mg/dl <40 mg/dl or >180 mg/dl Disposition: 11:28 Chart complete. ps1 Disposition: 10/24/17 11:23 Hospitalization ordered by Babs Maloney for Inpatient Admission. Preliminary diagnosis are Altered Mental Status, Acute Hepatic Encephalopathy, Bradycardia, Hyperammonemia. - Bed requested for Intensive Care Unit. - Status is Inpatient Admission. ph - Condition is Fair. - Problem is an acute exacerbation. - Symptoms are unchanged. UTI on Admission? No Signatures: Dispatcher [employer] EDOH Courtney Daniel Patricia, RN RN Sekou Reyes MD MD ps1 Corrections: (The following items were deleted from the chart) 13:10 11:23 Hospitalization Ordered by Babs Maloney MD for Inpatient Admission. Preliminary ag diagnosis is Altered Mental StatusAcute Hepatic Encephalopathy; Bradycardia; Hyperammonemia. Bed requested for Intensive Care Unit. Status is Inpatient Admission. Condition is Fair. Problem is an acute exacerbation. Symptoms are unchanged. UTI on Admission? No. ps1 14:00 13:10 10/24/2017 11:23 Hospitalization Ordered by Babs Maloney MD for Inpatient ph Admission. Preliminary diagnosis is Altered Mental StatusAcute Hepatic Encephalopathy; Bradycardia; Hyperammonemia. Bed requested for Intensive Care Unit. Status is Inpatient Admission. Condition is Fair. Problem is an acute exacerbation. Symptoms are unchanged. UTI on Admission? No. ag
--- NOTE | 2017-10-24 11:24 | ER ---
Nurse's Notes [facility] Name: Ernestina Mackay Age: 51 yrs Sex: Female : 1965 Arrival Date: 10/24/2017 Time: 08:56 Bed 3 Private MD: Diagnosis: Acute Hepatic Encephalopathy;Bradycardia;Hyperammonemia;Altered Mental Status Presentation: 10/24 09:08 Presenting complaint: EMS states: Pt from [facility], normally A\T\O x 4, now ph responsive to painful stimuli only last seen normal at 0700, hx of IDDM, BGL 100, due for dialysis today, recent UTI tx w/ antibiotics via PICC, HR bradycardic w/ 1st degree block, 250 Ml NS given. Transition of care: patient was received from another setting of care (long-term care facility), [facility]. Onset of symptoms. Risk Assessment: Do you want to hurt yourself or someone else? Patient reports no desire to harm self or others. Initial Sepsis Screen: Does the patient meet any 2 criteria? No. Patient's initial sepsis screen is negative. Does the patient have a suspected source of infection? No. Patient's initial sepsis screen is negative. Care prior to arrival: IV initiated. 20 GA, in the left forearm, Glucose check: 100. 09:08 Method Of Arrival: EMS: [facility] ph 09:08 Acuity: TOM 2 ph Historical: - Allergies: 09:18 No Known Allergies; ph - Home Meds: 09:18 Abilify 1 mg/mL Oral soln 10 mL once daily at bedtime [Active]; acetaminophen 325 mg ph Oral tab 2 tabs every 6 hours for as needed for pain [Active]; Aldactone 25 mg Oral tab 1 tab 2 times per day [Active]; ascorbic acid (vitamin C) 500 mg tab twice a day [Active]; furosemide 20 mg Oral tab 1 tab 2 times per day [Active]; gabapentin 300 mg Oral cap 1 cap twice a day [Active]; Humalog sliding scale Sub-Q twice a day [Active]; lactulose 10 gram/15 mL (15 mL) Oral soln 30 mL 3 times per day [Active]; Levemir 100 unit/mL subcutaneous soln 25 Units SQ every morning for Type 2 Diabetes Mellitus [Active]; magnesium oxide 400 mg Oral cap 800 mg twice a day [Active]; multivitamin with minerals Oral tab daily [Active]; neomycin 500 mg Oral tab 3 tabs 2 times per day [Active]; nystatin 100,000 unit/gram Topical powd 2 times per day [Active]; Pepcid 20 mg Oral tab 1 tab once daily [Active]; propranolol 20 mg Oral tab 1 tab 3 times per day [Active]; sodium bicarbonate 650 mg Oral tab 650 mg daily [Active]; Wellbutrin SR 150 mg Oral TbER 1 tab 2 times per day [Active]; - PMHx: 09:18 Anxiety; Cellulitis; CHF; Chronic pain; Cirrhosis; Depression; Diabetes - NIDDM; ph Hepatitis; Hypertension; insomnia; - Immunization history:: Adult Immunizations unknown. - Social history:: Smoking status: unknown. - Ebola Screening: : No symptoms or risks identified at this time. Screenin:11 Abuse screen: Denies threats or abuse. Denies injuries from another. Nutritional ph screening:. Tuberculosis screening: No symptoms or risk factors identified. Fall Risk No fall in past 12 months (0 pts). Secondary diagnosis (15 points) IV access (20 points). Ambulatory Aid- None/Bed Rest/Nurse Assist (0 pts). Gait- Normal/Bed Rest/Wheelchair (0 pts) Mental Status- Overestimates/Forgets Limitations (15 pts.). Total Montes Fall Scale indicates High Risk Score (45 or more points). Fall prevention measures have been instituted. Side Rails Up X 2 Placed Close to Nursing Station Family Present and informed to notify staff if the need to leave the bedside As available patient and family educated on Fall Prevention Program and Strategies. Assessment: 09:15 General: Appears in no apparent distress. uncomfortable, ill, Behavior is unresponsive. ph Pain: Unable to use pain scale. Patient is unresponsive. Neuro: Level of Consciousness is listless, unresponsive, Eyes are open but pt is not verbally responsive, grimaces to painful stimuli. Oriented to none Facial symmetry appears normal, Pupils are constricted. Cardiovascular: Capillary refill < 3 seconds in bilateral fingers Patient's skin is warm and dry. Rhythm is sinus bradycardia Dialysis shunt: in the anterior aspect of right upper chest, with no erythema, with no edema. Respiratory: Airway is patent Trachea midline Respiratory effort is even, unlabored, shallow, Respiratory pattern is regular, symmetrical, Breath sounds are clear bilaterally. GI: Abdomen is round distended, Bowel sounds present X 4 quads. Derm: Skin is intact, Skin is pink, warm \T\ dry. 10:27 Reassessment: Patient appears in no apparent distress at this time. Patient and/or ph family updated on plan of care and expected duration. Pain level reassessed. Pt lying in bed w/ eyes open respirations even and unlabored, remains responsive to painful stimuli only, HR remains bradycardic at 45 bpm, all other VSS. 11:40 Reassessment: Patient appears in no apparent distress at this time. No changes from previously documented assessment. Patient and/or family updated on plan of care and expected duration. Pain level reassessed. Dr Maloney at bedside to assess pt, awaiting admit orders and ICU bed assignment. 12:09 Reassessment: Patient appears in no apparent distress at this time. Patient and/or ph family updated on plan of care and expected duration. Pain level reassessed. NGT inserted per provider order, pt tolerated well, pt resting in bed w/ eyes open but remains verbally unresponsive, awaiting ICU bed assignment. 13:15 Reassessment: Patient appears in no apparent distress at this time. No changes from previously documented assessment. Patient and/or family updated on plan of care and expected duration. Pain level reassessed. 13:17 Reassessment: attempted to call report to ICU, RN will return my call after medicating. Vital Signs: 09:18 BP 114 / 71; Pulse 48; Resp 12; Temp 97.2; Pulse Ox 100% on R/A; Weight 81.65 kg; ph 10:26 BP 112 / 65; Pulse 49; Resp 18; Pulse Ox 98% on R/A; ph 11:30 BP 118 / 65; Pulse 51; Resp 18; Pulse Ox 99% on R/A; ph 12:44 BP 116 / 64; Pulse 49; Resp 18; Pulse Ox 99% on R/A; ph 13:30 BP 110 / 65; Pulse 49; Resp 16; Temp 97.5; Pulse Ox 99% on R/A; ph ED Course: 08:56 Patient arrived in ED. iw 09:09 EKG done, by ED staff, reviewed by Sekou Monson MD. em1 09:12 Triage completed. ph 09:16 Sekou Monson MD is Attending Physician. ps1 09:19 Jana Mancilla, RN is Primary Nurse. ph 09:19 Arm band placed on. ph 10:06 Chest Single View XRAY In Process Unspecified. EDMS 10:10 Notified ED physician of a critical lab result(s). PLT=58. iw 10:11 CT Head Brain wo Cont In Process Unspecified. EDMS 10:15 Patient has correct armband on for positive identification. Placed in gown. Bed in low ph position. Call light in reach. Side rails up X2. monitoring and evaluation advisor on. Pulse ox on. NIBP on. Warm blanket given. 10:45 Rodriguez cath inserted, using sterile technique, 16 Fr., by me, balloon inflated, to ph gravity drainage, urine specimen collected. returned clear yellow urine. Patient tolerated well. Accessed PICC line. using per hospital protocol. Clean \T\ dry. Dressing intact. Good blood return. Flushes easily. Maintain EMS IV. Dressing intact. Good blood return noted. Site clean \T\ dry. Gauge \T\ site: 20 LFA. 10:52 Urine collected: Rodriguez catheter specimen, clear. em1 11:23 Babs Maloney MD is Hospitalizing Provider. ps1 12:07 NGT: inserted 14 Fr. via right nare. verified placement of air over stomach, verified ph return of gastric contents, Patient tolerated well. Patient admitted, IV remains in place. 13:59 No provider procedures requiring assistance completed. ph Administered Medications: 09:30 Drug: NARcan 0.4 mg Route: IVP; Site: left forearm; ph 10:25 Follow up: Response: No adverse reaction; No change in condition ph 10:55 Drug: NS 0.9% (30 ml/kg) 30 ml/kg Route: IV; Rate: bolus; Site: left forearm; ph 12:08 Follow up: Urine output 1000 ml; Response: No adverse reaction; IV Status: Completed ph infusion 12:07 Drug: Lactulose 30 grams Volume: 45 ml; Route: PO; ph 14:00 Follow up: Response: No adverse reaction ph Point of Care Testing: Blood Glucose: 08:58 Blood Glucose: 87 mg/dL; hj Ranges: Output: 12:08 Urine: 1000ml; Total: 1000ml. ph Outcome: 11:23 Decision to Hospitalize by Provider. ps1 13:59 Admitted to ICU accompanied by nurse, accompanied by tech, via stretcher, on monitor, ph with chart. 13:59 critical 14:00 Patient left the ED. ph Signatures: Dispatcher [employer] EDLori Baez, ESSIE RN Liana Sidhu RN RN iw Martinez, Eric em1 Jana Mancilla RN RN ph Piter Nunez RN RN hj Singer, Phillip, MD MD ps1 Corrections: (The following items were deleted from the chart) 10:11 09:18 BP 114 / 71; Pulse 48bpm; Resp 12bpm; Pulse Ox 100% RA; Temp 97.2F; ph ph 12:08 10:56 NS 0.9% (30 ml/kg) 30 ml/kg IV at bolus in left forearm ph ph
[2017-10-24] MEDS ORDERED: ONDANSETRON 4 MG/2 ML VIAL IV PRN (11:26)
[2017-10-24 11:38] LABS: Barbiturates NEGATIVE (NEGATIVE); Benzodiazepines NEGATIVE (NEGATIVE); Cocaine NEGATIVE (NEGATIVE); METHAMPHETAM NEGATIVE (NEGATIVE); Methadone NEGATIVE (NEGATIVE); Opiates NEGATIVE (NEGATIVE); Phencyclidine NEGATIVE (NEGATIVE); THC Cannibis NEGATIVE (NEGATIVE)
[2017-10-24] MEDS ORDERED: LACTULOSE 20 GM/30 ML UCUP ONE (11:50)
[2017-10-24] MEDS ORDERED: NA CHLORIDE 0.9% 1,000 ML IV SCH (12:00)
--- NOTE | 2017-10-24 12:56 | EKG ---
Test Date: 2017-10-24 Test Time: 09:03:10 Crew Chief: BC MEASUREMENT RESULTS: Intervals: Rate: 48 AR: 184 QRSD: 82 QT: 560 QTc: 500 [place]: P: -24 AR: 184 QRS: -11 T: 21 INTERPRETIVE STATEMENTS: Marked sinus bradycardia Low voltage QRS Abnormal ECG Compared to ECG 08/31/2017 15:59:28 Sinus rhythm no longer present Electronically Signed On 10-24-17 12:55:46 CDT by Cristiano Stevenson
[2017-10-24] MEDS ORDERED: SODIUM CHLORIDE 0.9% 10ML INJ IV PRN (13:33)
[2017-10-24 13:43] LABS: BUN Blood Urea Nitrogen 43 mg/dL (7-18); Bicarbonate 24 mmol/L (21-32); CKMB Creatine Kinase MB < 1.0 ng/mL (0.3-3.6); Creatine Phosphokinase 63 U/L (26-192); Glucose Level 80 mg/dL (74-106); Potassium 3.9 mmol/L (3.5-5.1); Sodium Level 139 mmol/L (136-145)
[2017-10-24] MEDS ORDERED: CEFTRIAXONE/SWI 1gm 1 GM/10 ML SYR IV SCH (15:00)
[2017-10-24] MEDS ORDERED: LACTULOSE 20 GM/30 ML UCUP PO SCH ×2 (15:00→21:00)
[2017-10-24] MEDS ORDERED: VANCOMYCIN IV SCH (15:30)
[2017-10-24] MEDS ORDERED: [UNRECOGNIZED DRUG - OTHER] IV SCH (15:30)
[2017-10-24] MEDS ORDERED: SOD CHLORIDE IV SCH (15:30)
--- NOTE | 2017-10-24 16:26 | P.HP ---
Certification for Inpatient Patient admitted to: Inpatient With expected LOS: >2 Midnights Patient will require the following post-hospital care: Longterm Practitioner: I am a practitioner with admitting privileges, knowledge of patient current condition, hospital course, and medical plan of care. Services: Services provided to patient in accordance with Admission requirements found in Title 42 Section 412.3 of the Code of Federal Regulations Patient History Date of Service: 10/24/17 Primary Care Provider: GI - Dr Purvis, Cardio - Dr Eduardo, Nephro - Dr Lemus Reason for admission: AMS History of Present Illness: 51-year-old female with Pmhx of Hep C, Liver Cirrhosis, HTN. Type 2 DM , ESRD on HD, Recurrent UTI, Recurrent Hepatic Encephalopathy presented to the emergency room with altered mental status from the ND. Patient was not able to provide a history due to her altered state. Most of the information came from the ER. Pt has been admitted to the hospital for similar in the past due to Noncompliance with lactulose. Pt was found to have pills in her gown upon examination in the ER. Compliance has always been an issue with the patient. Will question patient once she is more alert and oriented. ER physician reports pt came in with altered mental status. She was found to have abnormal lab including ammonia level of 130. Urinalysis was unremarkable. Urine drug screen was unremarkable. CT of the head was unremarkable. EKG was unremarkable. Chest x-ray was unremarkable. The patient was referred to medicine for admission for AMS. Pt will be admitted to the hospital for Hepatic Encephalopathy Allergies No Known Drug Allergies Allergy (Verified 09/01/17 01:37) Unknown No Known Allergi Allergy (Uncoded 08/31/17 23:01) Unknown No Known Allergies Allergy (Uncoded 10/24/17 14:04) Unknown Home Medications: Ascorbic Acid 500 mg PO BID 06/04/16 Gabapentin [Neurontin*] 300 mg PO BID 06/04/16 Multivitamin with Minerals [Oz Multivitamin with Mineral] 1 tab PO DAILY 06/04 Neomycin Sulfate 3 tab PO BID 06/04/16 Spironolactone [Aldactone*] 25 mg PO BID 06/04/16 Insulin Lispro [Humalog] See Protocol SQ BID 09/25/16 ARIPiprazole [Aripiprazole] 10 mg PO BEDTIME 08/07/17 Bupropion HCl [Bupropion HCl Sr] 1 tab PO BID 08/07/17 Insulin Detemir [Levemir] 25 units SQ DAILY WITH BREAKFAST 08/07/17 Lactulose 60 ml PO TID #1 solution 08/12/17 Nystatin Powder [Mycostatin (Powder)*] 1 appl TOP BID #1 btl 08/12/17 Famotidine [Pepcid*] 20 mg PO BEDTIME 09/01/17 Na Bicarb Tab [Sodium Bicarb 325 MG Tab*] 650 mg PO DAILY 09/01/17 Propranolol HCl 20 mg PO TID 09/01/17 Vancomycin/0.9 % Sod Chloride [Vancomycin 1 G/100Ml-0.9% NaCl] 500 mg IV AFTER EACH DIALYSIS #5 plast..bag 09/08/17 Furosemide [Lasix] 20 mg PO BID 10/24/17 Tramadol HCl [Ultram] 50 mg PO Q6H PRN 10/24/17 - Past Medical/Surgical History Diabetic: Yes -: Hepatitis C with Cirrhosis of liver -: CHF -: HTN -: Hypothyroidism -: GERD -: Peptic Ulcer -: UTI, Recurrent -: Chronic back pain -: Anxiety/Depression -: Cardiac Cath -: -: Tonsillectomy Psychosocial/ Personal History: Lives by herself. Currently at senior living - Family History Mother -: Heart disease, Other (see notes) Notes: takes b/p meds Father -: Diabetes - Social History Smoking Status: Unknown if ever smoked Alcohol use: No CD- Drugs: No Caffeine use: Yes Place of Residence: [facility] Review of Systems General: As per HPI Physical Examination - Vital Signs Temperature: 96.2 F Blood Pressure: 96/55 Pulse: 48 Respirations: 12 Pulse Ox (%): 100 - Physical Exam General: Mild distress, Other (lethargic and Confused. Responsive to Pain and sternal Rub) HEENT: Atraumatic, PERRLA Neck: Supple, JVD distended Respiratory: Clear to auscultation bilaterally, Normal air movement Cardiovascular: Regular rate/rhythm, Normal S1 S2, Edema (1+ BL LE) Gastrointestinal: Normal bowel sounds, Soft and benign, No tenderness, Distended , Ascites Musculoskeletal: Swelling (1+ BL LE) Integumentary: No rashes, No breakdown Urinary: Rodriguez catheter - Studies Laboratory Data (last 24 hrs) 10/24/17 09:40: PT 14.6 H, INR 1.23 10/24/17 09:40: Total Bilirubin 1.6 H, AST 69 H, ALT 35, Alkaline Phosphatase 232 H, Lipase 663 H 10/24/17 09:40: WBC 3.5 L, Hgb 10.1 L, Hct 30.4 L, Plt Count 58 L* Assessment and Plan - Problems (Diagnosis) (1) Hepatic encephalopathy Current Visit: No Status: Acute Plan: AMS with Unknown Onset at this time. Multifactorial Hepatic Encephalopahty vs uremic -Ammonia 130 in the ED. -Lactulose 30mg TID -Protonix and Rifaxamin -GI consult If no change in condition (2) UTI (urinary tract infection) Onset Date: 06/07/16 Current Visit: No Status: Acute Plan: Chronic complicated UTI -Currently getting Vanc. Will resume. -Pt with PICC line -UA and Urine culture Qualifiers: Urinary tract infection type: acute cystitis Hematuria presence: without hematuria Qualified Code(s): N30.00 - Acute cystitis without hematuria (3) Hepatitis C Onset Date: 06/07/16 Current Visit: No Status: Chronic Plan: Not On medication. Qualifiers: Viral hepatitis chronicity: chronic Hepatic coma status: without hepatic coma Qualified Code(s): B18.2 - Chronic viral hepatitis C (4) Liver cirrhosis Onset Date: 02/16/16 Current Visit: No Status: Chronic Qualifiers: Hepatic cirrhosis type: unspecified hepatic cirrhosis Ascites presence: with ascites Qualified Code(s): K74.60 - Unspecified cirrhosis of liver; R18.8 - Other ascites (5) ESRD (end stage renal disease) on dialysis Current Visit: Yes Status: Chronic Plan: Chronic ESRD on HD MWF -Nephrology consulted to resume HD here in the hospital (6) GERD (gastroesophageal reflux disease) Onset Date: 09/27/16 Current Visit: No Status: Chronic Plan: Started on Protonix. Stable for now Qualifiers: Esophagitis presence: with esophagitis Qualified Code(s): K21.0 - Gastro- esophageal reflux disease with esophagitis (7) HTN (hypertension) Onset Date: 09/27/16 Current Visit: No Status: Chronic Plan: Restart on Home medication -Stable for now Qualifiers: Hypertension type: essential hypertension Qualified Code(s): I10 - Essential (primary) hypertension (8) Type II diabetes mellitus, uncontrolled Onset Date: 02/16/16 Current Visit: No Status: Chronic Plan: ISS for now Qualifiers: Diabetes mellitus alf insulin use: with alf use Diabetes mellitus complication status: without complication Qualified Code(s): E11.65 - Type 2 diabetes mellitus with hyperglycemia; 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
[2017-10-24 19:45] LABS: Urine Appearance CLOUDY; Urine Bilirubin NEGATIVE (NEG); Urine Blood 2+ (NEG); Urine Color YELLOW; Urine Glucose NEGATIVE (NEG); Urine Protein NEGATIVE (NEG)
[2017-10-24 19:53] LABS: Urine Microscopic Reflex ORDER UMIC
[2017-10-24 20:10] LABS: Urine Bacteria >50 /HPF (<20); Urine Culture Reflex Order REFLEXED; Urine Mucus 1+ /HPF (NONE SEEN); Urine Yeast MANY (NONE SEEN)
[2017-10-24] MEDS ORDERED: NEOMYCIN SULFATE PO SCH (21:00)
[2017-10-24] MEDS: FUROSEMIDE 20 MG TABLET PO SCH (21:00)
[2017-10-24] MEDS: SPIRONOLACTONE 25 MG TABLET PO SCH (21:00)
[2017-10-24] MEDS: PROPRANOLOL HCL 40 MG TAB PO SCH (21:00)
[2017-10-24] MEDS ORDERED: HOME MED 1 EA UNK (Propranolol Hcl [Propranolol Hcl] 20 MG) PO SCH (21:00)
[2017-10-24] MEDS: BUPROPRION HCL S.R. 150MG TAB PO SCH (21:00)
[2017-10-24] MEDS: GABAPENTIN 300 MG CAP PO SCH (21:00)
[2017-10-24] MEDS: LACTULOSE 20 GM/30 ML UCUP PO SCH (21:11)
[2017-10-24] MEDS: NEOMYCIN SULFATE 500 MG TAB PO SCH (21:12)
[2017-10-24] MEDS ORDERED: VANCOMYCIN 500 MG/VIAL ONE (22:18)
[2017-10-25] MEDS ORDERED: NA CHLORIDE 0.9% 100 ML ONE (00:11)
--- NOTE | 2017-10-25 01:58 | CON ---
Date of Consultation: 10/24/2017 Chief Complaint: End-stage renal disease, on dialysis. History Of Present Illness: The patient has multiple medical problems including history of hepatitis C, liver cirrhosis; hypertension; diabetes mellitus type 2; end-stage renal disease, on dialysis; recurrent urinary tract infection. The patient was brought to the hospital because of severe altered mental status and encephalopathy. The patient was found to have elevated ammonia level, and chest x-ray showed fluid overload, congestive heart failure with interstitial pulmonary edema. The patient was admitted to the hospital and urgent dialysis was ordered to control fluid overload, provide treatment for volume control, and management for congestive heart failure. The patient had a drug screen done to evaluate encephalopathy and rule out drug toxicity. Ammonia level though was 130. CT scan of the head did not show acute changes. EKG was unchanged from previous test, and chest x-ray showed interstitial pulmonary infiltrate. Review of Systems: Unobtainable. The patient is severely encephalopathic. She is arousable and responds to voice, although she does not answer questions. Past Medical History: Congestive heart failure with systolic and diastolic dysfunction, hepatitis C, liver cirrhosis, hypertension, hypothyroidism, GERD, peptic ulcer disease, UTI infection with acute cystitis, chronic back pain, anxiety, depression, , and tonsillectomy. Family History: Mother had heart disease. Father diabetes. Social History: Denies tobacco, alcohol, or illicit drugs. Physical Examination: Vital Signs: Blood pressure 96/55, heart rate is 58, temperature 96.2, respiratory rate is 12. Eyes: No hemorrhagic changes. Ears, Nose, Mouth, and Throat: Oral mucosa moist. No pallor. Neck: Supple. No bruits. Lungs: Few crackles at bases. Heart: S1, S2. No pericardial friction or rub. Abdomen: Soft, obese, nontender. No rebound. No guarding. Extremities: Swelling in both legs.no cellulitis SKIN warm and dry , no oozing NEUROLOGIC: no tremor , moving extremities Laboratory Data: Total bilirubin 1.6. INR 1.23, PTT 14.6. AP 232. Lipase 663. WBC 3.5, hemoglobin 10.9, platelet count 58. BNP pending. Chest x-ray showed early stages of failure, volume overload, no pleural effusion. Impression And Plan: 1. End-stage renal disease, fluid overload, severe legs edema, anasarca, congestive heart failure with systolic and diastolic dysfunction. The patient will have dialysis with ultrafiltration. Monitor electrolytes. Adjust potassium level according to pending lab work. 2. Hyperammonemia, altered mental status, hepatic encephalopathy. Continue lactulose. 3. Hypotension, borderline. Monitor blood pressure during dialysis, and plan is to give mannitol for blood pressure support. The patient may require midodrine for blood pressure support. 4. Anemia and chronic kidney disease. Hemoglobin level is 10.1. Continue to monitor. At this point, the patient does not require RENETTA. 5. Renal osteodystrophy. The patient is on n.p.o. protocol. Monitor phosphorus level. Provide management with dialysis clearance to control hyperphosphatemia. Check phosphorus level. LINH/VANIA Voice ID: [id number] Report ID: [id number] MTDD
[2017-10-25 04:49] LABS: Absolute Lymphocytes (CBC) 0.7 K/uL (0.7-4.9); Absolute Monocytes 0.3 K/uL (0.1-1.3); Absolute Neutrophil 1.7 K/uL (1.8-8.0); Basophils % 1.8 % (0-1.3); Eosinophils % 4.3 % (0-4.4); Hematocrit 29.8 % (36.0-45.0); Lymphocytes % 23.5 % (15.3-44.8); MCH 31.6 pg (27.0-35.0); MCV 94.7 fL (80-100); MPV 8.5 fL (7.6-11.3); Monocytes % 10.1 % (3.3-12.3); RBC Red Blood Cell Count 3.15 M/uL (3.86-4.86)
[2017-10-25 05:06] VITALS: BMI 30.5
[2017-10-25 05:10] LABS: Albumin 2.4 g/dL (3.4-5.0); Bilirubin Total 1.9 mg/dL (0.2-1.0); Potassium 3.5 mmol/L (3.5-5.1); Protein, Total 6.3 g/dL (6.4-8.2)
[2017-10-25] MEDS ORDERED: GLUCAGON 1 MG/VIAL IM PRN (06:51)
[2017-10-25] MEDS ORDERED: D50W 25 GM/50 ML SYRINGE IV PRN (06:51)
[2017-10-25] MEDS: INSULIN -REGULAR HUMAN 50 UNIT/0.5 ML ML SQ SCH ×4 (07:11→21:00)
[2017-10-25] MEDS ORDERED: MULTIVITAMIN WITH MINERALS PO SCH (09:00)
[2017-10-25] MEDS: LACTULOSE 20 GM/30 ML UCUP PO SCH ×3 (10:08→21:11)
[2017-10-25] MEDS: NEOMYCIN SULFATE 500 MG TAB PO SCH ×2 (10:08→21:11)
[2017-10-25] MEDS: PROPRANOLOL HCL 40 MG TAB PO SCH ×3 (10:08→21:12)
[2017-10-25] MEDS: SODIUM BICARB 325 MG TAB PO SCH (10:09)
[2017-10-25] MEDS: PANTOPRAZOLE 40 MG INJ IVP SCH (10:09)
[2017-10-25] MEDS: FUROSEMIDE 20 MG TABLET PO SCH ×2 (10:09→21:14)
[2017-10-25] MEDS: GABAPENTIN 300 MG CAP PO SCH ×2 (10:09→21:11)
[2017-10-25] MEDS: BUPROPRION HCL S.R. 150MG TAB PO SCH ×2 (10:10→21:14)
[2017-10-25] MEDS: SPIRONOLACTONE 25 MG TABLET PO SCH ×2 (10:10→21:14)
[2017-10-25] MEDS: MULTIVIT W/ MINERAL TAB PO SCH (10:10)
[2017-10-25] MEDS: MIDODRINE HCL 5 MG TABLET PO SCH ×2 (15:10→21:12)
--- NOTE | 2017-10-25 16:05 | P.PN ---
Subjective Date of Service: 10/25/17 Primary Care Provider: GI - Dr Purvis, Cardio - Dr Eduardo, Nephro - Dr Lemus Chief Complaint: AMS Pt seen and examined at bedside. CHart reviewed. Pt is now AAOX2. Doing well overall. No c.o overnight. Review of Systems General: As per HPI Physical Examination - Vital Signs Temperature: 97.8 F Blood Pressure: 104/66 Pulse: 59 Respirations: 13 Pulse Ox (%): 100 - Physical Exam General: Alert, In no apparent distress HEENT: Atraumatic, PERRLA, EOMI Neck: Supple, JVD not distended Respiratory: Clear to auscultation bilaterally, Normal air movement Cardiovascular: Regular rate/rhythm, Normal S1 S2 Gastrointestinal: Normal bowel sounds, No tenderness Musculoskeletal: No tenderness Integumentary: No rashes Neurological: Normal speech, Normal tone, Normal affect Lymphatics: No axilla or inguinal lymphadenopathy - Studies Medications List Reviewed: Yes Assessment & Plan - Problems (Diagnosis) (1) Hepatic encephalopathy Onset Date: 10/25/17 Current Visit: Yes Status: Acute Plan: AMS with Unknown Onset at this time. Multifactorial Hepatic Encephalopahty vs uremic. improved today and is AAOx2. Feels weak however. -Ammonia down to 46 today -Lactulose 30mg TID -Protonix and Rifaxamin -DC in 24 to 48 hrs. (2) UTI (urinary tract infection) Onset Date: 06/07/16 Current Visit: No Status: Acute Plan: Chronic complicated UTI -Currently getting Vanc. Will resume. -Pt with PICC line -UA and Urine culture Qualifiers: Urinary tract infection type: acute cystitis Hematuria presence: without hematuria Qualified Code(s): N30.00 - Acute cystitis without hematuria (3) Hepatitis C Onset Date: 06/07/16 Current Visit: No Status: Chronic Plan: Not On medication. Qualifiers: Viral hepatitis chronicity: chronic Hepatic coma status: without hepatic coma Qualified Code(s): B18.2 - Chronic viral hepatitis C (4) Liver cirrhosis Onset Date: 02/16/16 Current Visit: No Status: Chronic Qualifiers: Hepatic cirrhosis type: unspecified hepatic cirrhosis Ascites presence: with ascites Qualified Code(s): K74.60 - Unspecified cirrhosis of liver; R18.8 - Other ascites (5) ESRD (end stage renal disease) on dialysis Onset Date: 10/25/17 Current Visit: Yes Status: Chronic Plan: Chronic ESRD on HD MWF -Nephrology consulted to resume HD here in the hospital (6) GERD (gastroesophageal reflux disease) Onset Date: 09/27/16 Current Visit: No Status: Chronic Plan: Started on Protonix. 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
[2017-10-25] MEDS: VANCOMYCIN 500 MG in NA CHLORIDE 0.9% 100 ML IVPB SCH (18:00)
[2017-10-25] MEDS ORDERED: EPOETIN ALFA 10,000 UNIT/ML VIAL SQ ONE (18:00)
--- NOTE | 2017-10-26 00:57 | PN ---
Date of Progress Note: 10/25/2017 Chief Complaint: End-stage renal disease. History Of Present Illness: The patient remains on dialysis. She has history of hepatitis C, liver cirrhosis, history of hypertension, diabetes mellitus type 2. She presented to the hospital because of severe weakness and encephalopathy. She was found to have severe hyperammonemia, was admitted to the ICU and was started on lactulose. Dialysis was ordered and ultrafiltration was titrated down because of hypotension. The patient received IV normal saline for blood pressure support. Subsequently , dialysis was terminated. Review of Systems: The patient today is more alert, although she is lethargic, cannot provide review of systems. Physical Examination: Lungs: Few crackles at bases. Heart: S1, S2. Abdomen: Soft, benign. Extremities: Edema present in both legs. Laboratory Data: Lipase 663, total bilirubin is 1.6, hemoglobin is 10.9, BNP pending. Platelet count is 58. Impression And Plan: 1. End-stage renal disease. The patient will resume dialysis today. The patient has fluid overload, anasarca, congestive heart failure with systolic and diastolic dysfunction. Plan is to schedule dialysis with ultrafiltration to obtain negative fluid balance and provide metabolic clearance. 2. Hyperammonemia. Continue lactulose. The patient has severe hepatic encephalopathy due to liver cirrhosis. Continue treatment. Adjust lactulose dose according to ammonia level. 3. Hypotension, gradually resolving. Patient will have midodrine for blood pressure support. The patient received mannitol for blood pressure support during dialysis. Monitor blood pressure closely during dialysis. 4. Anemia and chronic kidney disease. Hemoglobin level is satisfactory. At this point, patient does not require RENETTA. Monitor hemoglobin level. Resume RENETTA when hemoglobin is below 10. 5. Renal osteodystrophy. The patient is on n.p.o. protocol. Monitor phosphorus level. Provide management with dialysis to treat hyperphosphatemia. Adjust metabolic clearance as needed. I spent total 36 min including 26 min to coordinate care plan. LINH/VANIA Voice ID: [id number] Report ID: [id number] JOY
[2017-10-26] MEDS: INSULIN -REGULAR HUMAN 50 UNIT/0.5 ML ML SQ SCH ×3 (07:30→16:16)
[2017-10-26 09:05] VITALS: O2SAT 99
[2017-10-26] MEDS: FUROSEMIDE 20 MG TABLET PO SCH (09:08)
[2017-10-26] MEDS: PANTOPRAZOLE 40 MG INJ IVP SCH (09:08)
[2017-10-26] MEDS: MULTIVIT W/ MINERAL TAB PO SCH (09:08)
[2017-10-26] MEDS: SPIRONOLACTONE 25 MG TABLET PO SCH (09:10)
[2017-10-26] MEDS: BUPROPRION HCL S.R. 150MG TAB PO SCH (09:10)
[2017-10-26] MEDS: GABAPENTIN 300 MG CAP PO SCH (09:10)
[2017-10-26] MEDS: NEOMYCIN SULFATE 500 MG TAB PO SCH (09:10)
[2017-10-26] MEDS: SODIUM BICARB 325 MG TAB PO SCH (09:10)
[2017-10-26] MEDS: LACTULOSE 20 GM/30 ML UCUP PO SCH ×2 (09:10→11:23)
[2017-10-26] MEDS: PROPRANOLOL HCL 40 MG TAB PO SCH ×2 (09:11→13:46)
[2017-10-26] MEDS: MIDODRINE HCL 5 MG TABLET PO SCH ×2 (09:14→13:46)
[2017-10-26] MEDS ORDERED: MIDODRINE HCL 5 MG TABLET PO ONE (11:30)
[2017-10-26 11:36] LABS: Magnesium 2.1 mg/dL (1.8-2.4); Phosphorus 3.7 mg/dL (2.5-4.9); Potassium 4.2 mmol/L (3.5-5.1)
--- NOTE | 2017-10-26 11:54 | P.SSS ---
Patient History Date of Service: 10/26/17 Primary Care Provider: GI - Dr Purvis, Cardio - Dr Eduardo, Nephro - Dr Lemus Reason for admission: AMS History of Present Illness: 51-year-old female with Pmhx of Hep C, Liver Cirrhosis, HTN. Type 2 DM , ESRD on HD, Recurrent UTI, Recurrent Hepatic Encephalopathy presented to the emergency room with altered mental status from the [place]. Patient was not able to provide a history due to her altered state. Most of the information came from the ER. Pt has been admitted to the hospital for similar in the past due to Noncompliance with lactulose. Pt was found to have pills in her gown upon examination in the ER. Compliance has always been an issue with the patient. Will question patient once she is more alert and oriented. ER physician reports pt came in with altered mental status. She was found to have abnormal lab including ammonia level of 130. Urinalysis was unremarkable. Urine drug screen was unremarkable. CT of the head was unremarkable. EKG was unremarkable. Chest x-ray was unremarkable. The patient was referred to medicine for admission for AMS. Pt will be admitted to the hospital for Hepatic Encephalopathy Allergies No Known Drug Allergies Allergy (Verified 09/01/17 01:37) Unknown No Known Allergi Allergy (Uncoded 08/31/17 23:01) Unknown No Known Allergies Allergy (Uncoded 10/24/17 14:04) Unknown Home Medications: Ascorbic Acid 500 mg PO BID 06/04/16 Gabapentin [Neurontin*] 300 mg PO BID 06/04/16 Multivitamin with Minerals [Oz Multivitamin with Mineral] 1 tab PO DAILY 06/04 Neomycin Sulfate 3 tab PO BID 06/04/16 Spironolactone [Aldactone*] 25 mg PO BID 06/04/16 Insulin Lispro [Humalog] See Protocol SQ BID 09/25/16 ARIPiprazole [Aripiprazole] 10 mg PO BEDTIME 08/07/17 Bupropion HCl [Bupropion HCl Sr] 1 tab PO BID 08/07/17 Insulin Detemir [Levemir] 25 units SQ DAILY WITH BREAKFAST 08/07/17 Lactulose 60 ml PO TID #1 solution 08/12/17 Nystatin Powder [Mycostatin (Powder)*] 1 appl TOP BID #1 btl 08/12/17 Famotidine [Pepcid*] 20 mg PO BEDTIME 09/01/17 Na Bicarb Tab [Sodium Bicarb 325 MG Tab*] 650 mg PO DAILY 09/01/17 Propranolol HCl 20 mg PO TID 09/01/17 Vancomycin/0.9 % Sod Chloride [Vancomycin 1 G/100Ml-0.9% NaCl] 500 mg IV AFTER EACH DIALYSIS #5 plast..bag 09/08/17 Furosemide [Lasix] 20 mg PO BID 10/24/17 Tramadol HCl [Ultram] 50 mg PO Q6H PRN 10/24/17 - Past Medical/Surgical History Diabetic: Yes -: Hepatitis C with Cirrhosis of liver -: CHF -: HTN -: Hypothyroidism -: GERD -: Peptic Ulcer -: UTI, Recurrent -: Chronic back pain -: Anxiety/Depression -: UTI, Recurrent -: Chronic back pain -: Anxiety/Depression -: Cardiac Cath -: -: Tonsillectomy Psychosocial/ Personal History: Lives by herself. Currently at care home - Family History Mother -: Heart disease, Other (see notes) Notes: takes b/p meds Father -: Diabetes - Social History Smoking Status: Unknown if ever smoked Alcohol use: No CD- Drugs: No Caffeine use: Yes Place of Residence: [facility] Review of Systems General: As per HPI Physical Examination - Vital Signs Temperature: 96.9 F Blood Pressure: 109/65 Pulse: 60 Respirations: 18 Pulse Ox (%): 98 - Physical Exam General: Alert, In no apparent distress HEENT: Atraumatic, PERRLA, Mucous membr. moist/pink, EOMI, Sclerae nonicteric Neck: Supple, 2+ carotid pulse no bruit, No LAD, Without JVD or thyroid abnormality Respiratory: Clear to auscultation bilaterally, Normal air movement Cardiovascular: Regular rate/rhythm, Normal S1 S2 Gastrointestinal: Normal bowel sounds, No tenderness Musculoskeletal: No tenderness Integumentary: No rashes Neurological: Normal gait, Normal speech, Normal strength at 5/5 x4 extr, Normal tone, Normal affect Lymphatics: No axilla or inguinal lymphadenopathy - Studies Microbiology Data (last 24 hrs): 10/24/17 10:50 Blood - Blood Aerobic Blood Culture - Final 10/24/17 10:50 Blood - Blood Gram Stain - Final 10/24/17 10:50 Blood - Blood Anaerobic Blood Culture - Final 10/24/17 10:50 Blood - Blood Gram Stain - Final - Diagnosis (Problem(s)) (1) Hepatic encephalopathy Onset Date: 10/25/17 Current Visit: Yes Status: Acute (2) UTI (urinary tract infection) Onset Date: 06/07/16 Current Visit: No Status: Acute Qualifiers: Urinary tract infection type: acute cystitis Hematuria presence: without hematuria Qualified Code(s): N30.00 - Acute cystitis without hematuria (3) Hepatitis C Onset Date: 06/07/16 Current Visit: No Status: Chronic Qualifiers: Viral hepatitis chronicity: chronic Hepatic coma status: without hepatic coma Qualified Code(s): B18.2 - Chronic viral hepatitis C (4) Liver cirrhosis Onset Date: 02/16/16 Current Visit: No Status: Chronic Qualifiers: Hepatic cirrhosis type: unspecified hepatic cirrhosis Ascites presence: with ascites Qualified Code(s): K74.60 - Unspecified cirrhosis of liver; R18.8 - Other ascites (5) ESRD (end stage renal disease) on dialysis Onset Date: 10/25/17 Current Visit: Yes Status: Chronic (6) GERD (gastroesophageal reflux disease) Onset Date: 09/27/16 Current Visit: No Status: Chronic Qualifiers: Esophagitis presence: with esophagitis Qualified Code(s): K21.0 - Gastro- esophageal reflux disease with esophagitis (7) HTN (hypertension) Onset Date: 09/27/16 Current Visit: No Status: Chronic Qualifiers: Hypertension type: essential hypertension Qualified Code(s): I10 - Essential (primary) hypertension (8) Type II diabetes mellitus, uncontrolled Onset Date: 02/16/16 Current Visit: No Status: Chronic Qualifiers: Diabetes mellitus recycling program manager insulin use: with recycling program manager use Diabetes mellitus complication status: without complication Qualified Code(s): E11.65 - Type 2 diabetes mellitus with hyperglycemia; Z79.4 - senior living (current) use of insulin (9) Depression with anxiety Onset Date: 06/07/16 Current Visit: No Status: Chronic Treatment Summary: Pt admitted to the hospital for Hepatic Encephalopathy with ammonia of 136. Started on Lactulose 20mg TID and had large BM's here in the hospital her Ammonia was down to 46 day 2. Pt's mentation improved and was AAOx3. Pt is also ESRD who received Dialysis on the day of admission and next day. Again pt showed marked improvement and thus DC back to the [place] where she will complete her IV Vanc for next 14 days for her UTI. - Disposition Disposition: TRANSFER TO [facility] Condition: GOOD Patient Discharge Instructions: Please f.u with PCP and Nephrology in 2 week post discharge. NO new medication. Please continue taking your lactulose as prescribed. Diet: Regular Activity: Ad renny
[2017-10-26] MEDS: VANCOMYCIN 500 MG in NA CHLORIDE 0.9% 100 ML IVPB SCH (13:36)
[2017-10-26 16:07] VITALS: BP 119/57; TEMP 98.3
--- NOTE | 2017-10-26 23:04 | PN ---
Date of Progress Note: 10/26/2017 Reason For Visit: End-stage renal disease. History Of Present Illness: The patient has end-stage renal disease due to diabetes mellitus, hypertension associated with severe cardiorenal syndrome. The patient developed fluid overload congestive heart failure and received daily dialysis with ultrafiltration. Legs edema has been in better controlled and edema of the legs resolving gradually. The patient is on p.o. fluid restriction and low-sodium diet. Encephalopathy. The patient was treated with lactulose for severe hyperammonemia with altered mental status. The patient is improving with mentation, although she remains lethargic. Review of Systems: Denies fever, chills. Physical Examination: Lungs: Clear to auscultation bilaterally. Heart: S1, S2. Abdomen: Soft, benign. Extremities: Ankle edema bilaterally. Laboratory Data: Hemoglobin 10.9, platelet count 58,000. Impression And Plan: 1. End-stage renal disease. Dialysis was done today with ultrafiltration. Continue low-sodium diet, p.o. fluid restriction. 2. Hyperammonemia. Continue lactulose. The patient has liver cirrhosis. The patient will follow up with Gastroenterology. 3. Hypotension. The patient was treated with midodrine for blood pressure support to prevent intradialytic hypotension. 4. Anemia due to chronic kidney disease. Monitor hemoglobin level. Adjust RENETTA. LINH/VANIA Voice ID: [id number] Report ID: [id number] MTDD
[2017-10-27 20:37] LABS: HBsAG Nonreactive (Nonreactive)
[2017-10-28 18:40] LABS: Hepatitis C Virus RNA (PCR)log 5.78 log IU/mL
== END 2017-10-26 14:12 | DRG 441 ==
LOC: ER 08:54 → ERHOLD 11:31 → 3RD-ICU 13:37 → 4TH 10-25 15:15
PROVIDERS: ADMIT Family Medicine; ATTEND Family Medicine
PROC: 5A1D70Z Performance of Urinary Filtration, Intermittent, Less than 6 Hours Per Day (ICD-10-PCS; principal; 2017-10-24)
PROC: 5A1D70Z Performance of Urinary Filtration, Intermittent, Less than 6 Hours Per Day (ICD-10-PCS; 2017-10-24)
PROC: 5A1D70Z Performance of Urinary Filtration, Intermittent, Less than 6 Hours Per Day (ICD-10-PCS; 2017-10-24)
DX: K72.00 Acute and subacute hepatic failure without coma (principal); N18.6 End stage renal disease; N39.0 Urinary tract infection, site not specified; I13.2 Hypertensive heart and chronic kidney disease with heart failure and with stage 5 chronic kidney disease, or end stage renal disease; I50.42 Chronic combined systolic (congestive) and diastolic (congestive) heart failure; B18.2 Chronic viral hepatitis C; F41.8 Other specified anxiety disorders; K74.60 Unspecified cirrhosis of liver; K21.9 Gastro-esophageal reflux disease without esophagitis; Z91.14 Patient's other noncompliance with medication regimen; E03.9 Hypothyroidism, unspecified; E11.22 Type 2 diabetes mellitus with diabetic chronic kidney disease; E11.65 Type 2 diabetes mellitus with hyperglycemia
CPT/HCPCS: 36415; 51702; 70450; 71045; 80048; 80053; 80076; 80202; 80307; 81003; 81015; 81025; 82140; 82274; 82550; 82553; 82962; 83605; 83690; 83735; 84100; 84484; 85025; 85610; 86704; 86706; 86803; 87040; 87086; 87088; 87205; 87340; 87522; 90935; 93005; 94760; 96365; 96375; 99291; 99292; C9113; J2310; J2405; Q4081

== ENCOUNTER 2017-11-23 08:10 | Inpatient (IN) | payer OTHER ==
[2017-11-23] MEDS ORDERED: RSI MEDICATION KIT IV ONE (08:29)
[2017-11-23] MEDS ORDERED: MIDAZOLAM HCL 2 MG/2 ML INJ ONE (08:42)
[2017-11-23] MEDS ORDERED: ROCURONIUM 50 MG/5 ML VIAL IV ONE (08:43)
[2017-11-23 08:59] LABS: Absolute Lymphocytes (CBC) 0.7 K/uL (0.7-4.9); Absolute Monocytes 0.3 K/uL (0.1-1.3); Absolute Neutrophil 2.3 K/uL (1.8-8.0); Basophils % 1.1 % (0-1.3); Eosinophils % 2.2 % (0-4.4); Hematocrit 31.5 % (36.0-45.0); Lymphocytes % 21.3 % (15.3-44.8); MCH 31.9 pg (27.0-35.0); MCV 95.8 fL (80-100); MPV 10.6 fL (7.6-11.3); Monocytes % 9.3 % (3.3-12.3); RBC Red Blood Cell Count 3.29 M/uL (3.86-4.86)
[2017-11-23 09:13] LABS: Protime INR 1.18
--- NOTE | 2017-11-23 09:31 | RAD REPORT ---
EXAM DESCRIPTION: RAD - Chest Single View - 11/23/2017 9:13 am CLINICAL HISTORY: AMS Chest pain. COMPARISON: Chest Single View dated 10/24/2017; Chest Single View dated 09/05/2017; Chest Single View d ated 09/02/2017; Chest Single View dated 09/01/2017 FINDINGS: Portable technique limits examination quality. Tip of the ET tube is above the mona. Enteric tube descends in the stomach. Right-sided venous cath eter has tip in SVC. Mild interstitial pulmonary edema. The heart is mildly prominent size. No displa sunny fractures.
[2017-11-23 09:32] LABS: Urine Blood NEGATIVE (NEG); Urine Glucose NEGATIVE (NEG); Urine Protein TRACE (NEG)
[2017-11-23 09:39] LABS: ALT/SGPT 42 U/L (12-78); AST/SGOT 86 U/L (15-37); Albumin 2.2 g/dL (3.4-5.0); Alkaline Phosphatase 264 U/L (45-117); BUN Blood Urea Nitrogen 39 mg/dL (7-18); Bicarbonate 29 mmol/L (21-32); Bilirubin Total 1.6 mg/dL (0.2-1.0); CKMB Creatine Kinase MB < 1.0 ng/mL (0.3-3.6); Creatine Phosphokinase 81 U/L (26-192); Glucose Level 89 mg/dL (74-106); Lipase 551 U/L (73-393); Potassium 3.6 mmol/L (3.5-5.1); Protein, Total 6.5 g/dL (6.4-8.2); Sodium Level 141 mmol/L (136-145)
--- NOTE | 2017-11-23 09:49 | RAD REPORT ---
EXAM DESCRIPTION: CT - Head Brain Wo Cont - 11/23/2017 9:40 am CLINICAL HISTORY: AMS Drowsiness COMPARISON: Head Brain Wo Cont dated 10/24/2017; Head Brain Wo Cont dated 08/07/2017 TECHNIQUE: All CT scans are performed using dose optimization technique as appropriate and may inclu de automated exposure control or mA/KV adjustment according to patient size. FINDINGS: No intracranial hemorrhage, hydrocephalus or extra-axial fluid collection.No areas of brai n edema or evidence of midline shift. The paranasal sinuses and mastoids are clear. The calvarium is intact. IMPRESSION: No acute intracranial abnormality.
[2017-11-23 10:02] LABS: Arterial Blood Carboxyhemoglob 1.3 % (0-1.5); Blood Gas Oxyhemoglobin 96.6 % (94-97); Blood O2 Saturation 98.7 % (92-98.5)
[2017-11-23] MEDS ORDERED: LACTULOSE 20 GM/30 ML UCUP ONE (10:11)
[2017-11-23] MEDS ORDERED: CEFTRIAXONE/SWI 1gm 2 GM/20 ML SYR ONE (10:11)
[2017-11-23 10:33] LABS: Urine Bacteria 20-50 /HPF (<20); Urine Culture Reflex Order REFLEXED; Urine RBC <5 /HPF (NONE SEEN)
[2017-11-23 10:47] LABS: Barbiturates NEGATIVE (NEGATIVE); Benzodiazepines NEGATIVE (NEGATIVE); Cocaine NEGATIVE (NEGATIVE); METHAMPHETAM NEGATIVE (NEGATIVE); Methadone NEGATIVE (NEGATIVE); Opiates NEGATIVE (NEGATIVE); Phencyclidine NEGATIVE (NEGATIVE); THC Cannibis NEGATIVE (NEGATIVE)
--- NOTE | 2017-11-23 11:04 | EDPHYS ---
Physician Documentation [facility] Name: Ernestina Mackay Age: 52 yrs Sex: Female : 1965 Arrival Date: 11/23/2017 Time: 08:13 Bed 4 Private MD: ED Physician Dionte Godoy HPI: 11/23 08:30 This 52 yrs old Female presents to ER via EMS with complaints of cp Unresponsive, CriticalA Ammonia Level. 08:30 The patient's problem is reported as altered mental status, unresponsive, to tactile cp stimuli. Onset: The symptoms/episode began/occurred at an unknown time. EMS reports patient was observed to be altered 2 days ago. Historical: - Allergies: 09:23 No Known Allergies; hb - Home Meds: 09:59 Abilify 1 mg/mL Oral soln 10 mL once daily at bedtime [Active]; acetaminophen 325 mg hb Oral tab 2 tabs every 6 hours for as needed for pain [Active]; Aldactone 25 mg Oral tab 1 tab 2 times per day [Active]; ascorbic acid (vitamin C) 500 mg tab twice a day [Active]; furosemide 20 mg Oral tab 1 tab 2 times per day [Active]; gabapentin 300 mg Oral cap 1 cap twice a day [Active]; lactulose 10 gram/15 mL (15 mL) Oral soln 30 mL 3 times per day [Active]; Humalog sliding scale Sub-Q twice a day [Active]; Levemir 100 unit/mL subcutaneous soln 25 Units SQ every morning for Type 2 Diabetes Mellitus [Active]; magnesium oxide 400 mg Oral cap 800 mg twice a day [Active]; multivitamin with minerals Oral tab daily [Active]; neomycin 500 mg Oral tab 3 tabs 2 times per day [Active]; nystatin 100,000 unit/gram Topical powd 2 times per day [Active]; Pepcid 20 mg Oral tab 1 tab once daily [Active]; propranolol 20 mg Oral tab 1 tab 3 times per day [Active]; sodium bicarbonate 650 mg Oral tab 650 mg daily [Active]; Wellbutrin SR 150 mg Oral TbER 1 tab 2 times per day [Active]; - PMHx: 09:59 Anxiety; Cellulitis; CHF; Chronic pain; Cirrhosis; Depression; Diabetes - NIDDM; hb Hepatitis; Hypertension; insomnia; - Immunization history:: Adult Immunizations unknown. - Social history:: Smoking status: unknown. - Ebola Screening: : No symptoms or risks identified at this time. ROS: 08:35 Constitutional: Negative for fever. cp 08:35 Unable to obtain ROS due to altered mental status. Exam: 08:40 ECG was reviewed by the Attending Physician. cp 08:40 Head/Face: Normocephalic, atraumatic. cp 08:40 Constitutional: The patient appears non-diaphoretic, well developed, well nourished. 08:40 Eyes: Periorbital structures: appear normal, Pupils: dilated, bilaterally, Conjunctiva: normal, no exudate, no injection, Sclera: no appreciated abnormality, Lids and lashes: appear normal, bilaterally. 08:40 ENT: External ear(s): are unremarkable, Ear canal(s): are normal, clear, TM's: bulging, is not appreciated, bilaterally, dullness, bilaterally, erythema, is not appreciated, bilaterally, Nose: is normal, Mouth: Lips: moist, Oral mucosa: moist, Posterior pharynx: is normal, airway is patent, no erythema, no exudate. 08:40 Chest/axilla: Inspection: right subclavian catheter, Palpation: crepitus, is not appreciated. 08:40 Cardiovascular: Rate: bradycardic, actual rate is 51 bpm, Rhythm: regular, Pulses: Pulses are 2+ in right radial artery and left radial artery. Edema: ankle edema, that is mild, JVD: is not appreciated. 08:40 Respiratory: the patient does not display signs of respiratory distress, Respirations: normal, no use of accessory muscles, no retractions, no splinting, no tachypnea, labored breathing, is not present, Breath sounds: are clear throughout, no stridor, no wheezing. 08:40 Abdomen/GI: Inspection: abdomen appears normal, Bowel sounds: active, all quadrants, Palpation: abdomen is soft and non-tender, in all quadrants, involuntary guarding, is not appreciated. 08:40 Skin: cellulitis, is not appreciated, no rash present. cp 08:40 Neuro: Orientation: Not oriented to person, place, time, Mentation: sleepy. 09:55 Radiologist reports: no acute intracranial findings cp Vital Signs: 08:23 BP 103 / 69; Pulse 53; Resp 14; Pulse Ox 100% on R/A; hb 09:00 BP 108 / 70; Pulse 50; Resp 14; Pulse Ox 100% on 40% FiO2 ETT vent; hb 09:45 BP 114 / 78; Pulse 51; Resp 14; Temp 97.4(A); Pulse Ox 100% on 40% FiO2 ETT vent; hb 09:53 Weight 91.63 kg; hb 10:15 BP 132 / 76; Pulse 53; Resp 14; Pulse Ox 100% on 40% FiO2 ETT vent; hb 10:45 BP 130 / 77; Pulse 51; Resp 15; Pulse Ox 100% on 40% FiO2 ETT vent; hb 11:15 BP 132 / 76; Pulse 52; Resp 14; Pulse Ox 100% on 40% FiO2 ETT vent; hb 11:45 BP 103 / 68; Pulse 53; Resp 13; Pulse Ox 100% on 40% FiO2 ETT vent; hb 12:15 BP 112 / 67; Pulse 51; Resp 14; Pulse Ox 100% on 40% FiO2 ETT vent; hb 12:45 BP 106 / 60; Pulse 50; Resp 14; Pulse Ox 100% on 40% FiO2 ETT vent; hb 13:15 BP 106 / 68; Pulse 50; Resp 15; Pulse Ox 100% on 40% FiO2 ETT vent; hb 13:45 BP 108 / 64; Pulse 49; Resp 14; Pulse Ox 100% on 40% FiO2 ETT vent; hb 14:15 BP 111 / 66; Pulse 52; Resp 17; Pulse Ox 100% on 40% FiO2 ETT vent; hb 14:45 BP 102 / 64; Pulse 50; Resp 15; Pulse Ox 100% on 40% FiO2 ETT vent; ss 08:23 nasal trumpet to RIGHT nare hb 09:53 per [facility] paperwork hb Ariane Coma Score: 08:16 Eye Response: none(1). Verbal Response: none(1). Motor Response: extension hb (decerebrate)(2). Total: 4. 08:40 Eye Response: none(1). Verbal Response: none(1). Motor Response: none(1). Total: 3. cp Ventilator: 09:00 Fi02: 40%; Rate: 12min; T.V.: 500ml; Peep: 5cm; ET tube: 7.5 mm (Oral); hb Procedures: 08:56 Intubation: Ventilated with 100% NRB prior to procedure. O2 saturation prior to cp procedure was 100 %. Intubated orally using # 3 Joaquim blade with 7.5 mm ETT. was successful on first attempt. Ventilated with Ambu bag. Tube secured with ETT noonan at right side of mouth measured 24 cm at lip. Placement verified by CO2 detector with (+) color change, auscultating bilateral breath sounds, O2 saturation after procedure was 100 %. Patient tolerated well. MDM: 08:14 Patient medically screened. cp 09:00 ED course: Patient is not a candidate for tpa as onset of symptoms unknown. cp 09:00 Differential diagnosis: CVA, TIA, metabolic disorder, drug effects. cp 10:10 Physician consultation: Babs Maloney MD was called at 10:00, left msg on voicemail. cp 10:50 Physician consultation: Babs Maloney MD was contacted at 10:50, regarding admission, cp to the ICU, patient's condition. 12:00 Data reviewed: vital signs, nurses notes, lab test result(s), EKG, radiologic studies, cp CT scan, plain films. 12:00 Test interpretation: by ED physician or midlevel provider: ECG, plain radiologic cp studies. 11/23 08:20 Order name: Urine Microscopic Only; Complete Time: 10:58 cp 11/23 08:20 Order name: ABG; Complete Time: 10:25 11/23 10:26 Interpretation: Normal except: ABGPH 7.46; ABGPO2 130.0; ABGSO2 98.7; ABGTHB 10.5. 11/23 08:20 Order name: Basic Metabolic Panel; Complete Time: 10:25 11/23 10:26 Interpretation: Normal except: BUN 39; CRE 5.50; GFR 8; CA 7.9. 11/23 08:20 Order name: Blood Culture Adult (2) 11/23 08:20 Order name: CBC with Diff; Complete Time: 14:28 cp 11/23 09:36 Interpretation: Normal except: WBC 3.5; RBC 3.29; HGB 10.5; HCT 31.5; PLT 56; RDW 15.6. 11/23 08:20 Order name: Ckmb; Complete Time: 10:25 cp 11/23 08:20 Order name: CPK; Complete Time: 10:25 cp 11/23 08:20 Order name: Lactate; Complete Time: 09:35 cp 11/23 08:20 Order name: LFT's; Complete Time: 10:25 cp 11/23 10:26 Interpretation: Normal except: AST 86; ALK 264; BILIT 1.6; BILID 1.0; ALB 2.2; GLOB cp 4.3; A/G 0.5. 11/23 08:20 Order name: Lipase; Complete Time: 10:25 cp 11/23 11:00 Interpretation: Abnormal: LIP 551. cp 11/23 08:20 Order name: Procalcitonin; Complete Time: 10:25 cp 11/23 08:20 Order name: Protime (+inr); Complete Time: 09:52 cp 11/23 08:20 Order name: Ptt, Activated; Complete Time: 09:52 cp 11/23 08:20 Order name: Sed Rate; Complete Time: 14:28 cp 11/23 08:20 Order name: Troponin (emerg Dept Use Only); Complete Time: 09:47 cp 11/23 09:47 Interpretation: Reviewed. cp 11/23 08:20 Order name: Chest Single View XRAY; Complete Time: 09:35 cp 11/23 08:20 Order name: CT Head Brain wo Cont; Complete Time: 09:52 cp 11/23 08:20 Order name: AMMONIA; Complete Time: 09:35 cp 11/23 09:36 Interpretation: Abnormal: IVÁN 154. cp 11/23 08:44 Order name: UDS; Complete Time: 10:58 cp 11/23 09:06 Order name: CBC Smear Scan; Complete Time: 14:28 EDMS 11/23 09:27 Order name: Urine Dipstick--Ancillary (enter results); Complete Time: 09:35 eb 11/23 09:36 Interpretation: Normal except: UESTR TRACE. cp 11/23 10:34 Order name: Urine Culture EDMS 11/23 08:20 Order name: Accucheck; Complete Time: 09:26 cp 11/23 08:20 Order name: Cardiac monitoring; Complete Time: 09:27 cp 11/23 08:20 Order name: EKG - Nurse/Tech; Complete Time: 09:27 cp 11/23 08:20 Order name: IV Saline Lock - Large Bore; Complete Time: 09:27 cp 11/23 08:20 Order name: Labs collected and sent; Complete Time: 09:27 cp 11/23 08:20 Order name: O2 Per Protocol; Complete Time: 09:27 cp 11/23 08:20 Order name: O2 Sat Monitoring; Complete Time: 09:26 cp 11/23 08:20 Order name: Urine Dipstick-Ancillary (obtain specimen); Complete Time: 09:26 cp 11/23 08:20 Order name: Rodriguez; Complete Time: 09:26 cp 08 08:40 Order name: NG Tube; Complete Time: 09:24 cp EC:40 Rate is 51 beats/min. Rhythm is regular. NE interval is normal. QRS interval is normal. cp QT interval is prolonged at 544 msec. T waves are Flattened in leads aVF, V3, V4. Interpreted by me. Reviewed by me. Administered Medications: 08:50 Drug: Versed 4 mg Route: IVP; Site: left antecubital; hb 09:10 Follow up: Response: No adverse reaction hb 08:53 Drug: Rocuronium 45 mg Route: IVP; Site: left antecubital; hb 09:15 Follow up: Response: No adverse reaction hb 08:53 Drug: Etomidate 20 mg Route: IVP; Site: left antecubital; hb 09:15 Follow up: Response: No adverse reaction hb 10:03 Drug: Lactulose 60 grams Volume: 45 ml; Route: PO; hb 11:31 Follow up: Response: No adverse reaction hb 10:03 Drug: Rocephin - (cefTRIAXone) 2 grams Route: IVPB; Infused Over: 30 mins; Site: left hb antecubital; 11:31 Follow up: Response: No adverse reaction; IV Status: Completed infusion hb 11:00 Drug: vancoMYCIN 1 grams Route: IVPB; Infused Over: 2 hrs; Site: right antecubital; hb 13:00 Follow up: Response: No adverse reaction; IV Status: Completed infusion hb 11:00 Drug: Zosyn 3.375 grams Route: IVPB; Infused Over: 60 mins; Site: left antecubital; hb 11:30 Follow up: Response: No adverse reaction; IV Status: Completed infusion hb 11:31 Drug: Propofol 5 mcg/kg/min {Note: started at 5mcg/kg/min.} Route: IV; Rate: calculated hb rate; Site: left antecubital; 12:30 Follow up: Response: No adverse reaction; IV Status: Infusion continued upon admission hb Disposition: 16:15 Chart complete. 11/24 06:46 Co-signature as Attending Physician, Dionte Godoy MD I agree with the assessment and [facility] plan of care. Disposition: 11/23/17 11:03 Hospitalization ordered by Babs Maloney for Inpatient Admission. Preliminary diagnosis are Urinary tract infection, site not specified, Altered mental status, unspecified, Hepatic Encephalopathy. - Bed requested for Intensive Care Unit. - Status is Inpatient Admission. hb - Condition is Stable. - Problem is new. - Symptoms have improved. UTI on Admission? Yes Signatures: Dispatcher [employer] Crystal Herbert RN RN Dionte Godoy MD MD cha Page, Corey, PA PA Isha Vieira RN RN hb Corrections: (The following items were deleted from the chart) 11/23 10:27 10:26 Normal except: BUN 39; CRE 5.50; GFR 8. [facility] 11:04 11:03 Hospitalization Ordered by Babs Maloney MD for Inpatient Admission. Preliminary diagnosis is Urinary tract infection, site not specified; Altered mental status, unspecified. Bed requested for Intensive Care Unit. Status is Inpatient Admission. Condition is Stable. Problem is new. Symptoms have improved. UTI on Admission? Yes. 14:35 11:04 11/23/2017 11:03 Hospitalization Ordered by Babs Maloney MD for Inpatient dw Admission. Preliminary diagnosis is Urinary tract infection, site not specified; Altered mental status, unspecified; Hepatic Encephalopathy. Bed requested for Intensive Care Unit. Status is Inpatient Admission. Condition is Stable. Problem is new. Symptoms have improved. UTI on Admission? Yes. 15:54 14:35 11/23/2017 11:03 Hospitalization Ordered by Babs Maloney MD for Inpatient hb Admission. Preliminary diagnosis is Urinary tract infection, site not specified; Altered mental status, unspecified; Hepatic Encephalopathy. Bed requested for Intensive Care Unit. Status is Inpatient Admission. Condition is Stable. Problem is new. Symptoms have improved. UTI on Admission? Yes.
--- NOTE | 2017-11-23 11:04 | ER ---
Nurse's Notes [facility] Name: Ernestina Mackay Age: 52 yrs Sex: Female : 1965 Arrival Date: 11/23/2017 Time: 08:13 Bed 4 Private MD: Diagnosis: Urinary tract infection, site not specified;Altered mental status, unspecified;Hepatic Encephalopathy Presentation: 11/23 08:15 Presenting complaint: EMS states: Called out for unresponsive, not breathing. Per [facility] pt was altered and sent for labs on 11/21, resulted yesterday, ammonia level 318. Upon arrival pt was responsive to deep pain stimuli, diaphoretic, snoring respirations. Nasal trumpet placed, BP 104/68, HR 53, SpO2 100% on NRB, BGL 110, Sinus Micah on 12 lead. Hx HD, M/W/F, last HD was Tuesday 11/21. Transition of care: patient was received from another setting of care (long-term care facility), [facility]. Onset of symptoms was November 21, 2017. 08:15 Acuity: TOM 1 hb 08:15 Method Of Arrival: EMS: [facility] 08:16 Risk Assessment: Do you want to hurt yourself or someone else? Patient reports no hb desire to harm self or others. 08:16 Initial Sepsis Screen: Does the patient meet any 2 criteria? Altered Mental Status. hb Does the patient have a suspected source of infection? No. Patient's initial sepsis screen is negative. Care prior to arrival: IV initiated. 20 GA, in the left antecubital area, Glucose check: 110 Oxygen administered. via a non-rebreather mask, nasal trumpet to RIGHT nare. Triage Assessment: 08:16 General: Appears ill, obese, Behavior is unresponsive. Pain: Unable to use pain scale. hb FLACC scale score is 0 out of 10. Patient is unresponsive. EENT: nasal trumpet to RIGHT nare. Neuro: Level of Consciousness is unresponsive, Oriented to none Pupils are sluggish. Cardiovascular: Heart tones S1 S2 present Capillary refill < 3 seconds Patient's skin is warm and dry. Rhythm is sinus bradycardia. Respiratory: Airway via nasal trumpet Trachea midline Respiratory effort is even, unlabored, Respiratory pattern is snoring Breath sounds are clear bilaterally. GI: Abdomen is obese, Bowel sounds present X 4 quads. Abd is soft. : No deficits noted. Derm: Skin is intact, is healthy with good turgor, Skin is pink, warm \T\ dry. Musculoskeletal: Capillary refill < 3 seconds. Historical: - Allergies: :23 No Known Allergies; hb - Home Meds: Abilify 1 mg/mL Oral soln 10 mL once daily at bedtime [Active]; acetaminophen 325 mg hb Oral tab 2 tabs every 6 hours for as needed for pain [Active]; Aldactone 25 mg Oral tab 1 tab 2 times per day [Active]; ascorbic acid (vitamin C) 500 mg tab twice a day [Active]; furosemide 20 mg Oral tab 1 tab 2 times per day [Active]; gabapentin 300 mg Oral cap 1 cap twice a day [Active]; lactulose 10 gram/15 mL (15 mL) Oral soln 30 mL 3 times per day [Active]; Humalog sliding scale Sub-Q twice a day [Active]; Levemir 100 unit/mL subcutaneous soln 25 Units SQ every morning for Type 2 Diabetes Mellitus [Active]; magnesium oxide 400 mg Oral cap 800 mg twice a day [Active]; multivitamin with minerals Oral tab daily [Active]; neomycin 500 mg Oral tab 3 tabs 2 times per day [Active]; nystatin 100,000 unit/gram Topical powd 2 times per day [Active]; Pepcid 20 mg Oral tab 1 tab once daily [Active]; propranolol 20 mg Oral tab 1 tab 3 times per day [Active]; sodium bicarbonate 650 mg Oral tab 650 mg daily [Active]; Wellbutrin SR 150 mg Oral TbER 1 tab 2 times per day [Active]; - PMHx: :59 Anxiety; Cellulitis; CHF; Chronic pain; Cirrhosis; Depression; Diabetes - NIDDM; hb Hepatitis; Hypertension; insomnia; - Immunization history:: Adult Immunizations unknown. - Social history:: Smoking status: unknown. - Ebola Screening: : No symptoms or risks identified at this time. Screenin:52 Abuse screen: pt is unresponsive, no s/s abuse. Nutritional screening: No deficits hb noted. Tuberculosis screening: No symptoms or risk factors identified. Fall Risk Total Montes Fall Scale indicates High Risk Score (45 or more points). Fall prevention measures have been instituted. Side Rails Up X 2 Frequent Obs/Assessments Occuring As available patient and family educated on Fall Prevention Program and Strategies. Assessment: 08:16 General: see triage assessment. hb 08:17 Reassessment: RT at bedside. hb 08:35 Reassessment: LEO Castillo and Dr. Godoy at bedside for intubation. hb 08:55 Reassessment: ETT 7.5, 24cm at the lip. AC 12, TV 500, PEEP 5, FIO2 40%. hb 09:30 Reassessment: Pt to CT via stretcher with nurse and RT. hb 09:46 Reassessment: Pt returned from CT via stretcher with nurse and RT. hb 10:34 Reassessment: Pt remains intubated and unresponsive. NAD. VSS. hb 11:30 Reassessment: Pt coughing over vent, LEO Castillo notified, propofol started at 5mcg/kg/min hb as ordered. Admission ordered, awaiting room assignment at this time. 12:28 Reassessment: Patient appears in no apparent distress at this time. No changes from hb previously documented assessment. Pt remains ventilated and sedated, awaiting room assignment at this time. 13:30 Reassessment: Patient appears in no apparent distress at this time. Pt remains hb intubated and sedated, propofol continues at 5mcg/kg/min. 14:24 Reassessment: Patient appears in no apparent distress at this time. No changes from hb previously documented assessment. Patient and/or family updated on plan of care and expected duration. Pain level reassessed. 15:15 Reassessment: Patient appears in no apparent distress at this time. No changes from hb previously documented assessment. Patient and/or family updated on plan of care and expected duration. Pain level reassessed. Vital Signs: 08:23 BP 103 / 69; Pulse 53; Resp 14; Pulse Ox 100% on R/A; hb 09:00 BP 108 / 70; Pulse 50; Resp 14; Pulse Ox 100% on 40% FiO2 ETT vent; hb 09:45 BP 114 / 78; Pulse 51; Resp 14; Temp 97.4(A); Pulse Ox 100% on 40% FiO2 ETT vent; hb 09:53 Weight 91.63 kg; hb 10:15 BP 132 / 76; Pulse 53; Resp 14; Pulse Ox 100% on 40% FiO2 ETT vent; hb 10:45 BP 130 / 77; Pulse 51; Resp 15; Pulse Ox 100% on 40% FiO2 ETT vent; hb 11:15 BP 132 / 76; Pulse 52; Resp 14; Pulse Ox 100% on 40% FiO2 ETT vent; hb 11:45 BP 103 / 68; Pulse 53; Resp 13; Pulse Ox 100% on 40% FiO2 ETT vent; hb 12:15 BP 112 / 67; Pulse 51; Resp 14; Pulse Ox 100% on 40% FiO2 ETT vent; hb 12:45 BP 106 / 60; Pulse 50; Resp 14; Pulse Ox 100% on 40% FiO2 ETT vent; hb 13:15 BP 106 / 68; Pulse 50; Resp 15; Pulse Ox 100% on 40% FiO2 ETT vent; hb 13:45 BP 108 / 64; Pulse 49; Resp 14; Pulse Ox 100% on 40% FiO2 ETT vent; hb 14:15 BP 111 / 66; Pulse 52; Resp 17; Pulse Ox 100% on 40% FiO2 ETT vent; hb 14:45 BP 102 / 64; Pulse 50; Resp 15; Pulse Ox 100% on 40% FiO2 ETT vent; ss 08:23 nasal trumpet to RIGHT nare hb 09:53 per [facility] paperwork hb Ariane Coma Score: 08:16 Eye Response: none(1). Verbal Response: none(1). Motor Response: extension hb (decerebrate)(2). Total: 4. 08:40 Eye Response: none(1). Verbal Response: none(1). Motor Response: none(1). Total: 3. cp ED Course: 08:08 Arm band placed on. hb 08:10 Patient has correct armband on for positive identification. Placed in gown. Bed in low hb position. Side rails up X2. 08:13 Patient arrived in ED. hb 08:14 Dionte Castillo PA is PHCP. cp 08:14 Dionte Godoy MD is Attending Physician. cp 08:14 Maintain EMS IV. Dressing intact. Good blood return noted. Site clean \T\ dry. Gauge \T\ hb site: 20g LEFT AC. 08:15 Inserted saline lock: 20 gauge in left antecubital area, using aseptic technique. Blood hb collected. 08:21 Triage completed. hb 08:29 Radiology exam delayed due to ER to call when patient ready to come down to CT. kw1 08:42 EKG done, by mri technologist. reviewed by Dionte BAILEY. at1 08:55 Assisted provider with intubation using 7.5 mm ETT via oral route. ET tube secured at hb 24cm at the lips. Set up intubation tray. Intubated by Dionte Godoy MD Placement verified by CO2 detector w/ + color change, auscultating bilateral breath sounds, Patient tolerated well. 09:06 X-ray completed. Portable x-ray completed in exam room. Patient tolerated procedure jb2 well. 09:08 Chest Single View XRAY In Process Unspecified. EDMS 09:12 NGT: inserted 16 Fr. via right nare. verified placement of air over stomach, verified ss return of gastric contents, Placement verified by X-ray, to intermittent suction. Returned bile. Amount of gastric contents removed by suction 50ml. Patient tolerated well. 09:15 Rodriguez cath inserted, using sterile technique, 18 Fr., by pr, balloon inflated, to hb gravity drainage, urine specimen collected. 09:40 CT Head Brain wo Cont In Process Unspecified. EDMS 10:22 Isha Vieira RN is Primary Nurse. hb 11:02 Babs Maloney MD is Hospitalizing Provider. cp 15:15 Patient admitted, IV remains in place. hb Administered Medications: 08:50 Drug: Versed 4 mg Route: IVP; Site: left antecubital; hb 09:10 Follow up: Response: No adverse reaction hb 08:53 Drug: Rocuronium 45 mg Route: IVP; Site: left antecubital; hb 09:15 Follow up: Response: No adverse reaction hb 08:53 Drug: Etomidate 20 mg Route: IVP; Site: left antecubital; hb 09:15 Follow up: Response: No adverse reaction hb 10:03 Drug: Lactulose 60 grams Volume: 45 ml; Route: PO; hb 11:31 Follow up: Response: No adverse reaction hb 10:03 Drug: Rocephin - (cefTRIAXone) 2 grams Route: IVPB; Infused Over: 30 mins; Site: left hb antecubital; 11:31 Follow up: Response: No adverse reaction; IV Status: Completed infusion hb 11:00 Drug: vancoMYCIN 1 grams Route: IVPB; Infused Over: 2 hrs; Site: right antecubital; hb 13:00 Follow up: Response: No adverse reaction; IV Status: Completed infusion hb 11:00 Drug: Zosyn 3.375 grams Route: IVPB; Infused Over: 60 mins; Site: left antecubital; hb 11:30 Follow up: Response: No adverse reaction; IV Status: Completed infusion hb 11:31 Drug: Propofol 5 mcg/kg/min {Note: started at 5mcg/kg/min.} Route: IV; Rate: calculated hb rate; Site: left antecubital; 12:30 Follow up: Response: No adverse reaction; IV Status: Infusion continued upon admission hb Output: 09:15 Stool: 1; Total: 0ml. hb 09:30 Urine: 800ml (Rodriguez); Total: 800ml. hb Ventilator: 09:00 Fi02: 40%; Rate: 12min; T.V.: 500ml; Peep: 5cm; ET tube: 7.5 mm (Oral); hb Outcome: 11:03 Decision to Hospitalize by Provider. cp 15:15 Admitted to ICU accompanied by nurse, accompanied by tech, via stretcher, room ICU 5, hb with oxygen, on monitor, with chart, Report called to ESSIE Mckinney 15:15 Condition: stable 15:15 Instructed on the need for admit, Demonstrated understanding of unable to understand instructions, AMS and sedated 15:54 Patient left the ED. hb Signatures: Dispatcher [employer] EDMS Daniel Degroot jb2 Macie Middleton RN RN Laney velasco, pattern chain builder EKG Tat1 Dionte Castillo PA PA cp Baxter, Heather, RN RN VincentCorazon kw1 Corrections: (The following items were deleted from the chart) 09:52 08:23 BP 103 / 69; Pulse 53bpm; Resp 14bpm; Pulse Ox 100% RA; hb hb 10:35 08:55 Reassessment: ETT 7.5, 24 at the lip. AC 12, TV 500, PEEP 5, FIO2\T\ 40% hb hb 10:37 08:40 Urine 800, (Rodriguez), Output Total 800. hb hb 10:41 08:15 Presenting complaint: EMS states: Called out for unresponsive, not breathing. Per hb [facility] pt was altered and sent for labs on 11/21, resulted yesterday, ammonia level 318. Upon arrival pt was responsive to deep pain stimuli, diaphoretic, snoring respirations. Nasal trumpet placed, BP 104/68, HR 53, SpO2 100% on NRB, BGL 110, Sinus Micah on 12 lead. Hx HD, Tu/Melba/Sat. hb
[2017-11-23] MEDS ORDERED: VANCOMYCIN 1 GM/250 ML BAG ONE (11:12)
[2017-11-23] MEDS ORDERED: PIPER/TAZO/NS 3.375gm 3.375 GM/100 ML BAG ONE (11:12)
[2017-11-23] MEDS ORDERED: PROPOFOL 1,000 MG/100 ML VIAL IV ONE (11:26)
[2017-11-23 13:39] LABS: Anisocytosis 2+; Blood Morphology Comment NOTED (NOT SEEN); Platelet Estimate DECR; Urine White Blood Cell Casts OK
--- NOTE | 2017-11-23 13:57 | CON ---
Date of Consultation: 11/23/2017 Consulting Physician: Dr. Maloney Reason For Consultation: Elevated BUN and creatinine, fluid management, alkalosis, hypokalemia, end- stage renal disease. History Of Present Illness: This is a pleasant, 52-year-old female. All the information has been ob tained from the record. The patient is well known to me from the dialysis with significant past medi yady history of hep C, hypertension, congestive heart failure, hypothyroidism, end-stage renal disease secondary to hepatorenal, diabetes complicated with neuropathy and nephropathy, patient came to the hospital with altered mental status, hepatic encephalopathy; found to have elevated BUN and creatinin e, hypokalemia for that reason, we have been consulted. The patient had altered mental status, was i ntubated for airway protection. The patient was started on lactulose. Past Medical History: Include, 1.Diabetes complicated with neuropathy. 2.Congestive heart failure. 3.Hypothyroidism. 4.Peptic ulcer disease. 5.End-stage renal disease, on hemodialysis TTS at [facility] through [facility]. 6.Hep C complicated with cirrhosis. Past Surgical History: 1.. 2.Tonsillectomy. 3.Cardiac cath. 4.PermCath placement. Family History: Positive for diabetes and hypertension. Social History: Lives in [facility]. Denies smoking. Denies drinking. Denies drug abuse. Review of Systems: Not obtainable. Medication: Home medication or [facility] medication include, 1.Tramadol. 2.Spironolactone 25 b.i.d. 3.Inderal 20 b.i.d. 4.Multivitamin. 5.Insulin. 6.Gabapentin. 7.Lasix 20 b.i.d. 8.Pepcid. 9.Aripiprazole. Current Medication In The Hospital: Include, IV fluid. Physical Examination: Vital Signs: When I saw the patient, the patient intubated, on vent 30%. Blood pressure 119/57, pul se of 60, afebrile. Still have some urine output. Chest: Clear to auscultation. Heart: S1, S2. Regular. Abdomen: Soft, nontender. Extremity: Trace edema. Laboratory Data: WBC 3.5, H and H 10.5/31.5, platelet 56. Sodium 141, potassium 3.6, bicarb 29, BUN 39, creatinine 5.5, GFR of 8, calcium 7.9. PTH 204. Serology HIV all negative. Complement C3 and C4 is low. Electrophoresis, just inflammatory. Assessment And Plan: 1.End-stage renal disease. I am going to continue the patient on dialysis. I do not see any acidos is, no hyperkalemia. I am going to schedule the patient for dialysis tomorrow. 2.Hypertension, controlled. We will resume blood pressure medication. 3.Altered mental status secondary to hepatic encephalopathy. I am going to start the patient on ban margarita bag and we will follow up with the primary. 4.Alkalosis secondary to contraction. We will start the patient on D5 half and we will follow up wi the primary. 5.Diabetes as by primary. 6.Hypokalemia. We will supplement and dialyze the patient on high potassium bath. Case discussed wi Dr. Maloney. JAYLA/VANIA Voice ID: [id number] Report ID: [id number]
[2017-11-23] MEDS: INSULIN -REGULAR HUMAN 50 UNIT/0.5 ML ML SQ SCH ×3 (14:14→20:59)
[2017-11-23] MEDS ORDERED: LACTULOSE 20 GM/30 ML UCUP PO PRN (14:14)
[2017-11-23] MEDS ORDERED: SODIUM CHLORIDE 0.9% 10ML INJ IV PRN (14:14)
[2017-11-23] MEDS ORDERED: ONDANSETRON 4 MG/2 ML VIAL IV PRN (14:14)
[2017-11-23] MEDS ORDERED: VANCOMYCIN 1.25 GM in NA CHLORIDE 0.9% 250 ML IVPB SCH (14:14)
[2017-11-23] MEDS ORDERED: NA CHLORIDE 0.9% 250 ML IV PRN (14:14)
[2017-11-23] MEDS: PIPER/TAZO/NS 3.375gm 3.375 GM/100 ML BAG IVPB SCH ×2 (14:30→17:13)
--- NOTE | 2017-11-23 14:35 | EKG ---
Test Date: 2017-11-23 Test Time: 08:37:20 Correction Lieutenant: SUZETTE MEASUREMENT RESULTS: Intervals: Rate: 51 IL: 178 QRSD: 82 QT: 544 QTc: 501 Nixa: P: 22 IL: 178 QRS: -18 T: 11 INTERPRETIVE STATEMENTS: Sinus bradycardia Nonspecific T wave abnormality Prolonged QT Abnormal ECG Compared to ECG 10/24/2017 09:03:10 T-wave abnormality now present Prolonged QT interval now present Electronically Signed On 11-23-17 14:34:17 CDT by Cristiano Stevenson
--- NOTE | 2017-11-23 14:50 | P.HP ---
Certification for Inpatient Patient admitted to: Inpatient With expected LOS: >2 Midnights Patient will require the following post-hospital care: None Practitioner: I am a practitioner with admitting privileges, knowledge of patient current condition, hospital course, and medical plan of care. Services: Services provided to patient in accordance with Admission requirements found in Title 42 Section 412.3 of the Code of Federal Regulations Patient History Date of Service: 11/23/17 Primary Care Provider: [facility] Reason for admission: AMS History of Present Illness: 51-year-old female with Pmhx of Hep C, Liver Cirrhosis, HTN. Type 2 DM , ESRD on HD, Recurrent UTI, Recurrent Hepatic Encephalopathy presented to the emergency room with altered mental status from the [facility]. Patient was not able to provide a history due to her altered state and being Intubated. Most of the information came from the ER physician who states that the patient was found to be in AMS at the [facility] for past 2 days. Ammonia was checked at the [facility] and was found to have level of 316 yesterday. Pt has been admitted to the hospital for similar in the past due to Noncompliance with lactulose. Compliance has always been an issue with the patient. Will question patient once she is more alert and oriented. ER physician reports pt came in with altered mental status. She was found to have abnormal lab including ammonia level of 156 GCS of 3 and thus was intubated in the ER to protect the Airway. Urinalysis was + for UTI. Urine drug screen was unremarkable. CT of the head was unremarkable. EKG was unremarkable. Chest x-ray was unremarkable. The patient was referred to medicine for admission for AMS. Pt will be admitted to the hospital for Hepatic Encephalopathy Allergies No Known Drug Allergies Allergy (Verified 09/01/17 01:37) Unknown No Known Allergi Allergy (Uncoded 08/31/17 23:01) Unknown No Known Allergies Allergy (Uncoded 10/24/17 14:04) Unknown Home Medications: Ascorbic Acid 500 mg PO BID 06/04/16 Gabapentin [Neurontin*] 300 mg PO BID 06/04/16 Multivitamin with Minerals [Oz Multivitamin with Mineral] 1 tab PO DAILY 06/04 Neomycin Sulfate 3 tab PO BID 06/04/16 Spironolactone [Aldactone*] 25 mg PO BID 06/04/16 Insulin Lispro [Humalog] See Protocol SQ BID 09/25/16 ARIPiprazole [Aripiprazole] 10 mg PO BEDTIME 08/07/17 Bupropion HCl [Bupropion HCl Sr] 1 tab PO BID 08/07/17 Insulin Detemir [Levemir] 25 units SQ DAILY WITH BREAKFAST 08/07/17 Lactulose 60 ml PO TID #1 solution 08/12/17 Nystatin Powder [Mycostatin (Powder)*] 1 appl TOP BID #1 btl 08/12/17 Famotidine [Pepcid*] 20 mg PO BEDTIME 09/01/17 Na Bicarb Tab [Sodium Bicarb 325 MG Tab*] 650 mg PO DAILY 09/01/17 Propranolol HCl 20 mg PO TID 09/01/17 Vancomycin/0.9 % Sod Chloride [Vancomycin 1 G/100Ml-0.9% NaCl] 500 mg IV AFTER EACH DIALYSIS #5 plast..bag 09/08/17 Furosemide [Lasix] 20 mg PO BID 10/24/17 Tramadol HCl [Ultram] 50 mg PO Q6H PRN 10/24/17 - Past Medical/Surgical History Diabetic: Yes -: Hepatitis C with Cirrhosis of liver -: CHF -: HTN -: Hypothyroidism -: GERD -: Peptic Ulcer -: UTI, Recurrent -: Chronic back pain -: Anxiety/Depression -: UTI, Recurrent -: Chronic back pain -: Anxiety/Depression -: Cardiac Cath -: -: Tonsillectomy Psychosocial/ Personal History: Lives by herself. Currently at senior care - Family History Mother -: Heart disease, Other (see notes) Notes: takes b/p meds Father -: Diabetes - Social History Alcohol use: No CD- Drugs: No Caffeine use: Yes Review of Systems General: As per HPI Physical Examination - Physical Exam General: Obese, Other (Intubated and sedated ) HEENT: Atraumatic Neck: Supple, JVD distended Respiratory: Normal air movement, Crackles/rales, Other (Intubated) Cardiovascular: Regular rate/rhythm, Normal S1 S2 Gastrointestinal: Normal bowel sounds, Soft and benign, Non-distended, No tenderness Musculoskeletal: Swelling (2+ BL LE) Integumentary: Rash(es) Neurological: Other (Intubated) Urinary: Rodriguez catheter - Studies Laboratory Data (last 24 hrs) 11/23/17 08:15: PT 14.0 H, INR 1.18, APTT 40.4 H 11/23/17 08:15: WBC 3.5 L, Hgb 10.5 L, Hct 31.5 L, Plt Count 56 L* 11/23/17 08:15: Sodium 141, Potassium 3.6, BUN 39 H, Creatinine 5.50 H*, Glucose 89, Total Bilirubin 1.6 H, AST 86 H, ALT 42, Alkaline Phosphatase 264 H , Lipase 551 H Assessment and Plan - Problems (Diagnosis) (1) Respiratory compromise Current Visit: Yes Status: Acute Plan: Acute respiratory compromise most likely secondary to GCS of 3 secondary to hepatic encephalopathy. -patient intubated and sedated to protect the airway at this time -when protocol in place. Wean as tolerated -will continue to monitor patient closely for any worsening (2) Hepatic encephalopathy Onset Date: 10/25/17 Current Visit: No Status: Acute Plan: AMS with Unknown Onset at this time. Multifactorial Hepatic Encephalopahty vs uremic -Ammonia 156 in the ED. -Lactulose 20mg TID -Protonix and Rifaxamin -GI consult If no change in condition (3) UTI (urinary tract infection) Onset Date: 06/07/16 Current Visit: No Status: Acute Plan: Chronic complicated UTI -Currently getting Vanc. Will resume. -UA and Urine culture Qualifiers: Urinary tract infection type: acute cystitis Hematuria presence: without hematuria Qualified Code(s): N30.00 - Acute cystitis without hematuria (4) Pancytopenia Current Visit: Yes Status: Acute Plan: Most likely secondary to liver cirrhosis. -will continue to monitor closely. (5) Liver cirrhosis Onset Date: 02/16/16 Current Visit: No Status: Chronic Qualifiers: Hepatic cirrhosis type: other cirrhosis Qualified Code(s): K74.69 - Other cirrhosis of liver (6) Hepatitis C Onset Date: 06/07/16 Current Visit: No Status: Chronic Plan: Not being treated at this time Qualifiers: Viral hepatitis chronicity: chronic Hepatic coma status: without hepatic coma Qualified Code(s): B18.2 - Chronic viral hepatitis C (7) Congestive heart failure with LV diastolic dysfunction, NYHA class 3 Onset Date: 06/07/16 Current Visit: No Status: Chronic Plan: Will restart home medication at this time. 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: without journeyman electrician use Diabetes mellitus complication status: without complication Qualified Code(s): E11.9 - Type 2 diabetes mellitus without complications (10) ESRD (end stage renal disease) on dialysis Onset Date: 10/25/17 Current Visit: No Status: Chronic Plan: Chronic ESRD on HD MWF -Nephrology consulted to resume HD here in the hospital (11) GERD (gastroesophageal reflux disease) Onset Date: 09/27/16 Current Visit: No Status: Chronic Plan: IV protonix Qualifiers: Esophagitis presence: without esophagitis Qualified Code(s): K21.9 - Gastro -esophageal reflux disease without esophagitis (12) HTN (hypertension) Onset Date: 09/27/16 Current Visit: No Status: Chronic Qualifiers: Hypertension type: essential hypertension Discharge Plan: Group Home Plan to discharge in: 72 Hours - Advance Directives Does patient have a Living Will: No Does patient have a Durable POA for Healthcare: No
[2017-11-23] MEDS ORDERED: SOD CHLORIDE IV SCH (15:00)
[2017-11-23] MEDS ORDERED: [UNRECOGNIZED DRUG - OTHER] IV SCH (15:00)
[2017-11-23] MEDS ORDERED: VANCOMYCIN IV SCH (15:00)
[2017-11-23] MEDS ORDERED: VANCOMYCIN 500 MG in NA CHLORIDE 0.9% 100 ML IVPB SCH (15:45)
[2017-11-23] MEDS ORDERED: ETOMIDATE 20 MG/10 ML VIAL IV ONE (17:12)
[2017-11-23] MEDS: LORazepam 2 MG/ML VIAL IV PRN (17:12)
[2017-11-23] MEDS: PANTOPRAZOLE 40 MG INJ IVP SCH (17:12)
[2017-11-23] MEDS ORDERED: D50W 25 GM/50 ML SYRINGE IV PRN (20:45)
[2017-11-23] MEDS ORDERED: D50W 25 GM/50 ML SYRINGE IV ONE (20:48)
[2017-11-23] MEDS: SPIRONOLACTONE 25 MG TABLET PO SCH (20:55)
[2017-11-23] MEDS: ARIPiprazole 5 MG TAB PO SCH (20:55)
[2017-11-23] MEDS: NEOMYCIN SULFATE 500 MG TAB PO SCH (20:57)
[2017-11-23] MEDS: FUROSEMIDE 20 MG TABLET PO SCH (20:57)
[2017-11-23] MEDS: NYSTATIN PWDR 100000 UNIT/GM TOP SCH (20:58)
[2017-11-23] MEDS: PROPRANOLOL HCL 40 MG TAB PO SCH (20:58)
[2017-11-23] MEDS: BUPROPRION HCL S.R. 150MG TAB PO SCH (20:59)
[2017-11-23] MEDS ORDERED: NEOMYCIN SULFATE PO SCH (21:00)
[2017-11-23] MEDS ORDERED: HOME MED 1 EA UNK (Propranolol Hcl [Propranolol Hcl] 20 MG) PO SCH (21:00)
[2017-11-23] MEDS ORDERED: VANCOMYCIN 1.75 GM in NA CHLORIDE 0.9% 500 ML IVPB SCH (21:00)
[2017-11-23] MEDS ORDERED: ARIPIPRAZOLE 10 MG PO SCH (21:00)
[2017-11-24] MEDS: PIPER/TAZO/NS 3.375gm 3.375 GM/100 ML BAG IVPB SCH ×3 (00:02→16:38)
[2017-11-24] MEDS: FENTANYL CITR 100 MCG/2 ML IV PRN ×4 (00:03→19:00)
[2017-11-24] MEDS: LORazepam 2 MG/ML VIAL IV PRN ×4 (02:45→16:39)
[2017-11-24 05:42] LABS: Absolute Neutrophil 4.7 K/uL (1.8-8.0); Basophils % 1.2 % (0-1.3); Eosinophils % 3.2 % (0-4.4); Hematocrit 34.2 % (36.0-45.0); Lymphocytes % 14.3 % (15.3-44.8); MCH 32.5 pg (27.0-35.0); MCV 95.8 fL (80-100); MPV 9.7 fL (7.6-11.3); Monocytes % 13.9 % (3.3-12.3); RBC Red Blood Cell Count 3.57 M/uL (3.86-4.86)
[2017-11-24 06:31] LABS: Arterial Blood Carboxyhemoglob 1.8 % (0-1.5); Blood Gas Oxyhemoglobin 96.8 % (94-97); Blood O2 Saturation 98.9 % (92-98.5)
[2017-11-24 06:32] LABS: Albumin 2.1 g/dL (3.4-5.0); Bilirubin Total 1.7 mg/dL (0.2-1.0); Magnesium 2.8 mg/dL (1.8-2.4); Phosphorus 6.4 mg/dL (2.5-4.9); Potassium 3.6 mmol/L (3.5-5.1); Protein, Total 6.6 g/dL (6.4-8.2)
[2017-11-24] MEDS: INSULIN -REGULAR HUMAN 50 UNIT/0.5 ML ML SQ SCH ×4 (07:30→21:00)
--- NOTE | 2017-11-24 07:34 | RAD REPORT ---
EXAM DESCRIPTION: RAD - Chest Single View - 11/24/2017 6:32 am CLINICAL HISTORY: Intubation, respiratory distress COMPARISON: November 23 TECHNIQUE: AP portable chest image was obtained 0617 hours . FINDINGS: No pulmonary edema, infiltrate or acute lung parenchymal process. No failure or volume ove rload. Heart and vasculature are normal. No measurable pleural effusion and no pneumothorax. No gross bony abnormality seen. No acute aortic finding. NG tube tip extends below the diaphragm, off the fie ld of view. Right-sided dialysis catheter is in place. Endotracheal tube tip is at the top of the aor tic arch, well above the mona. IMPRESSION: No pulmonary edema or other focal lung parenchymal process. Tubes and lines are in good position and stable.
[2017-11-24] MEDS: BUPROPRION HCL S.R. 150MG TAB PO SCH ×2 (09:00→19:57)
[2017-11-24] MEDS: PROPRANOLOL HCL 40 MG TAB PO SCH ×3 (09:00→21:00)
[2017-11-24] MEDS ORDERED: D5 0.45 NS 1,000 ML IV SCH (09:00)
[2017-11-24] MEDS: FOLIC ACID 1 MG, MULTIVITAMINS INJ 10 ML, THIAMINE HCL 100 MG in NA CHLORIDE 0.9% 1,000 ML IV SCH (09:32)
[2017-11-24] MEDS: SPIRONOLACTONE 25 MG TABLET PO SCH ×2 (09:33→21:53)
[2017-11-24] MEDS: FUROSEMIDE 20 MG TABLET PO SCH ×2 (09:33→21:00)
[2017-11-24] MEDS: NEOMYCIN SULFATE 500 MG TAB PO SCH ×2 (09:33→21:56)
[2017-11-24] MEDS: PANTOPRAZOLE 40 MG INJ IVP SCH (09:34)
[2017-11-24] MEDS: NYSTATIN PWDR 100000 UNIT/GM TOP SCH ×2 (09:34→21:00)
[2017-11-24] MEDS ORDERED: MANNITOL 25% 12.5 GM/50 ML VIAL IV PRN (11:56)
[2017-11-24] MEDS ORDERED: NA CHLORIDE 0.9% 1,000 ML IV PRN (11:56)
[2017-11-24] MEDS ORDERED: ALBUMIN HUMAN 25% 50 ML IV SCH (12:00)
[2017-11-24] MEDS: LACTULOSE 20 GM/30 ML UCUP PO SCH ×2 (12:05→21:53)
[2017-11-24] MEDS ORDERED: VANCOMYCIN/NS 1 gm 1 GM/250 ML BAG IV SCH (13:15)
--- NOTE | 2017-11-24 14:03 | P.PN ---
Subjective Date of Service: 11/24/17 Primary Care Provider: [facility] Chief Complaint: AMS Pt seen and examined at bedside. Currently Remains intubated. Responding to verbal stimuli. No complains to offer overnight. On SIMV mode currently in an effort to extubate her. Review of Systems General: As per HPI Physical Examination - Vital Signs Temperature: 97.9 F Blood Pressure: 98/61 Pulse: 80 Respirations: 13 Pulse Ox (%): 100 - Physical Exam General: Other (Intubated. responding to verbal Stimuli and sternal Rub) HEENT: Atraumatic Neck: Supple, JVD not distended Respiratory: Normal air movement, Crackles/rales Cardiovascular: Regular rate/rhythm, Normal S1 S2 Gastrointestinal: Normal bowel sounds, Soft and benign, Non-distended, No tenderness Musculoskeletal: No tenderness Integumentary: No rashes Neurological: Normal tone Lymphatics: No axilla or inguinal lymphadenopathy - Studies Medications List Reviewed: Yes Assessment & Plan - Problems (Diagnosis) (1) Respiratory compromise Onset Date: 11/24/17 Current Visit: Yes Status: Acute Plan: Acute respiratory compromise most likely secondary to GCS of 3 secondary to hepatic encephalopathy. -Currently Intubated. Alert and responding to verbal Stimuli -Vent protocol in place. Wean as tolerated -will continue to monitor patient closely for any worsening (2) Hepatic encephalopathy Onset Date: 10/25/17 Current Visit: No Status: Acute Plan: AMS with Unknown Onset at this time. Multifactorial Hepatic Encephalopahty vs uremic -Ammonia 59 today -Continue Lactulose 20mg TID -Protonix and Rifaxamin -GI consult If no change in condition (3) UTI (urinary tract infection) Onset Date: 06/07/16 Current Visit: No Status: Acute Plan: Chronic complicated UTI -Currently getting Vanc. Will resume. -Urine culture pending Qualifiers: Urinary tract infection type: acute cystitis Hematuria presence: without hematuria Qualified Code(s): N30.00 - Acute cystitis without hematuria (4) Pancytopenia Onset Date: 11/24/17 Current Visit: Yes Status: Acute Plan: Most likely secondary to liver cirrhosis. -will continue to monitor closely. (5) Liver cirrhosis Onset Date: 02/16/16 Current Visit: No Status: Chronic Qualifiers: Hepatic cirrhosis type: other cirrhosis Qualified Code(s): K74.69 - Other cirrhosis of liver (6) Hepatitis C Onset Date: 06/07/16 Current Visit: No Status: Chronic Plan: Not being treated at this time Qualifiers: Viral hepatitis chronicity: chronic Hepatic coma status: without hepatic coma Qualified Code(s): B18.2 - Chronic viral hepatitis C (7) Congestive heart failure with LV diastolic dysfunction, NYHA class 3 Onset Date: 06/07/16 Current Visit: No Status: Chronic Plan: On Lasix, Spironolactone and BB at this time (8) Depression with anxiety Onset Date: 06/07/16 Current Visit: No Status: Chronic (9) Diabetes mellitus Onset Date: 09/01/17 Current Visit: No Status: Chronic Plan: ISS Qualifiers: Diabetes mellitus type: type 2 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 insulin use: without long term care administrator use Diabetes mellitus complication status: without complication Qualified Code(s): E11.9 - Type 2 diabetes mellitus without complications (10) ESRD (end stage renal disease) on dialysis Onset Date: 10/25/17 Current Visit: No Status: Chronic Plan: Chronic ESRD on HD MWF -Nephrology consulted to resume HD here in the hospital (11) GERD (gastroesophageal reflux disease) Onset Date: 09/27/16 Current Visit: No Status: Chronic Plan: IV protonix Qualifiers: Esophagitis presence: without esophagitis Qualified Code(s): K21.9 - Gastro -esophageal reflux disease without esophagitis (12) HTN (hypertension) Onset Date: 09/27/16 Current Visit: No Status: Chronic Qualifiers: Hypertension type: essential hypertension Discharge Plan: [facility] Plan to discharge in: 48 Hours - Code Status/Comfort Care Code Status Assessed: Yes Critical Care: Yes
[2017-11-24] MEDS: ARIPiprazole 5 MG TAB PO SCH (21:53)
[2017-11-25] MEDS: PIPER/TAZO/NS 3.375gm 3.375 GM/100 ML BAG IVPB SCH ×3 (01:23→17:05)
[2017-11-25] MEDS: LORazepam 2 MG/ML VIAL IV PRN ×2 (01:23→09:04)
--- NOTE | 2017-11-25 04:23 | PN ---
Date of Progress Note: 11/24/2017 Chief Complaint: End-stage renal disease, on dialysis. Subjective: The patient is in ICU, admitted for altered mental status and hepatic encephalopathy. She was found to have severe hyperammonemia. She was intubated for respiratory failure. She has history of congestive heart failure , diastolic dysfunction, hypothyroidism, end-stage renal disease, hepatitis C. The patient is dialysis dependent. She is undergoing dialysis today. Review of Systems: Unobtainable. The patient is on vent. Physical Examination: Lungs: Few crackles at bases. Heart: S1, S2. Abdomen: Soft, benign. Extremities: Edema in both legs. Laboratory Data: Hemoglobin 11.6, WBC 7.0, platelet count is 36,000. Chemistries show sodium 143, potassium 3.6, chloride 105, CO2 25, BUN 51, creatinine 6.2, calcium 8.0, phosphorus 6.4, magnesium 2.8, total bilirubin 1.7. Impression And Plan: 1. End-stage renal disease. Dialysis was done with ultrafiltration today. Continue to adjust ultrafiltration goal to control fluid overload. 2. Altered mental status, encephalopathy, severe. The patient is on treatment for hyperammonemia. The patient was started on lactulose. Monitor ammonia level. 3. Diabetes mellitus with renal manifestation. Continue insulin. 4. Congestive heart failure with diastolic dysfunction. Ultrafiltration with dialysis will be adjusted as needed for control of volemia. 5. Hypertension. Blood pressure control. Medication resume. I spent total 36 min including 26 min to coordinate care plan. NASEEM Voice ID: [id number] Report ID: [id number] MTDNirali
[2017-11-25] MEDS: FENTANYL CITR 100 MCG/2 ML IV PRN ×2 (04:43→10:06)
[2017-11-25 05:33] LABS: Absolute Lymphocytes (CBC) 0.8 K/uL (0.7-4.9); Absolute Monocytes 0.5 K/uL (0.1-1.3); Absolute Neutrophil 2.5 K/uL (1.8-8.0); Basophils % 1.2 % (0-1.3); Eosinophils % 5.8 % (0-4.4); Hematocrit 31.4 % (36.0-45.0); Lymphocytes % 19.8 % (15.3-44.8); MCH 32.8 pg (27.0-35.0); MCV 95.9 fL (80-100); MPV 9.8 fL (7.6-11.3); Monocytes % 12.7 % (3.3-12.3); RBC Red Blood Cell Count 3.27 M/uL (3.86-4.86)
[2017-11-25 05:51] LABS: Albumin 2.1 g/dL (3.4-5.0); Bilirubin Total 2.6 mg/dL (0.2-1.0); Magnesium 2.3 mg/dL (1.8-2.4); Phosphorus 5.6 mg/dL (2.5-4.9); Potassium 3.7 mmol/L (3.5-5.1); Protein, Total 6.5 g/dL (6.4-8.2)
[2017-11-25] MEDS: INSULIN -REGULAR HUMAN 50 UNIT/0.5 ML ML SQ SCH ×4 (07:30→20:58)
[2017-11-25] MEDS: PANTOPRAZOLE 40 MG INJ IVP SCH (08:00)
[2017-11-25] MEDS: FUROSEMIDE 20 MG TABLET PO SCH ×2 (08:00→20:56)
[2017-11-25] MEDS: SPIRONOLACTONE 25 MG TABLET PO SCH ×2 (08:00→20:55)
[2017-11-25] MEDS: LACTULOSE 20 GM/30 ML UCUP PO SCH ×2 (08:01→20:55)
[2017-11-25] MEDS: PROPRANOLOL HCL 40 MG TAB PO SCH ×3 (08:01→20:57)
[2017-11-25] MEDS: NYSTATIN PWDR 100000 UNIT/GM TOP SCH ×2 (08:01→20:55)
[2017-11-25] MEDS: NEOMYCIN SULFATE 500 MG TAB PO SCH ×2 (08:03→20:57)
[2017-11-25] MEDS: BUPROPRION HCL S.R. 150MG TAB PO SCH ×2 (08:03→20:57)
[2017-11-25 08:07] LABS: Blood Morphology Comment NOT SEEN (NOT SEEN); Platelet Estimate DECR; Urine White Blood Cell Casts OK
[2017-11-25] MEDS: FOLIC ACID 1 MG, MULTIVITAMINS INJ 10 ML, THIAMINE HCL 100 MG in NA CHLORIDE 0.9% 1,000 ML IV SCH (09:05)
--- NOTE | 2017-11-25 12:16 | P.PN ---
Subjective Date of Service: 11/25/17 Primary Care Provider: [facility] Chief Complaint: AMS Pt seen and examined at bedside. Chart Reviewed. Pt still remains intubated. Alert and following commands but having long apnic Episodes. Ammonia elevated again today. Review of Systems General: As per HPI Physical Examination - Vital Signs Temperature: 97 F Blood Pressure: 100/66 Pulse: 62 Respirations: 12 Pulse Ox (%): 100 - Physical Exam General: Alert, Other (Intubated ) HEENT: Atraumatic Neck: Supple Respiratory: Normal air movement, Crackles/rales, Rhonchi/gurgles Cardiovascular: Regular rate/rhythm, Normal S1 S2 Gastrointestinal: Normal bowel sounds, Soft and benign, Non-distended, No tenderness Musculoskeletal: Swelling Integumentary: No rashes Neurological: Normal tone, Normal reflexes 2+ Lymphatics: No axilla or inguinal lymphadenopathy - Studies Microbiology Data (last 24 hrs): 11/23/17 08:30 Blood - Blood Aerobic Blood Culture - Final 11/23/17 08:30 Blood - Blood Gram Stain - Final 11/23/17 08:30 Blood - Blood Anaerobic Blood Culture - Final Medications List Reviewed: Yes Assessment & Plan - Problems (Diagnosis) (1) Respiratory compromise Onset Date: 11/24/17 Current Visit: Yes Status: Acute Plan: Acute respiratory compromise most likely secondary to GCS of 3 secondary to hepatic encephalopathy. -Currently Intubated. Alert and responding to verbal Stimuli but having long apnenic Episode. -Vent protocol in place. Wean as tolerated -Will consult Pulmonology today to assist with vent management (2) Hepatic encephalopathy Onset Date: 10/25/17 Current Visit: No Status: Acute Plan: AMS with Unknown Onset at this time. Multifactorial Hepatic Encephalopahty vs uremic -Ammonia 76 today -Increased Lactulose 20mg TID now -Protonix and Rifaxamin (3) UTI (urinary tract infection) Onset Date: 06/07/16 Current Visit: No Status: Acute Plan: Chronic complicated UTI -Currently getting Vanc. Will resume. -Urine culture pending Qualifiers: Urinary tract infection type: acute cystitis Hematuria presence: without hematuria Qualified Code(s): N30.00 - Acute cystitis without hematuria (4) Pancytopenia Onset Date: 11/24/17 Current Visit: Yes Status: Acute Plan: Most likely secondary to liver cirrhosis. -will continue to monitor closely. (5) Liver cirrhosis Onset Date: 02/16/16 Current Visit: No Status: Chronic Qualifiers: Hepatic cirrhosis type: other cirrhosis Qualified Code(s): K74.69 - Other cirrhosis of liver (6) Hepatitis C Onset Date: 06/07/16 Current Visit: No Status: Chronic Plan: Not being treated at this time Qualifiers: Viral hepatitis chronicity: chronic Hepatic coma status: without hepatic coma Qualified Code(s): B18.2 - Chronic viral hepatitis C (7) Congestive heart failure with LV diastolic dysfunction, NYHA class 3 Onset Date: 06/07/16 Current Visit: No Status: Chronic Plan: On Lasix, Spironolactone and BB at this time (8) Depression with anxiety Onset Date: 06/07/16 Current Visit: No Status: Chronic Plan: Will restart home medication at this time (9) Diabetes mellitus Onset Date: 09/01/17 Current Visit: No Status: Chronic Plan: ISS Qualifiers: Diabetes mellitus type: type 2 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: without intermediate school teacher use Diabetes mellitus complication status: without complication Qualified Code(s): E11.9 - Type 2 diabetes mellitus without complications (10) ESRD (end stage renal disease) on dialysis Onset Date: 10/25/17 Current Visit: No Status: Chronic Plan: Chronic ESRD on HD MWF -Nephrology consulted to resume HD here in the hospital (11) GERD (gastroesophageal reflux disease) Onset Date: 09/27/16 Current Visit: No Status: Chronic Plan: IV protonix Qualifiers: Esophagitis presence: without esophagitis Qualified Code(s): K21.9 - Gastro -esophageal reflux disease without esophagitis (12) HTN (hypertension) Onset Date: 09/27/16 Current Visit: No Status: Chronic Qualifiers: Hypertension type: essential hypertension Discharge Plan: [facility] Plan to discharge in: 48 Hours - Code Status/Comfort Care Code Status Assessed: Yes Critical Care: Yes
--- NOTE | 2017-11-25 12:53 | RAD REPORT ---
EXAM DESCRIPTION: RAD - Chest Single View - 11/25/2017 12:28 pm CLINICAL HISTORY: Intubation, respiratory distress COMPARISON: November 24 TECHNIQUE: AP portable chest image was obtained 1215 hours . FINDINGS: Endotracheal tube tip terminates at the T4 level top of the aortic arch. NG tube is in caridad ce extending below the diaphragm, off the field of view. Tessio catheter on the right is unchanged fr om prior imaging. No pulmonary edema, infiltrate or acute lung parenchymal process. Heart and vasculature are normal. N o measurable pleural effusion and no pneumothorax. No gross bony abnormality seen. No acute aortic fi ndings suspected. IMPRESSION: No acute cardiopulmonary process. Endotracheal tube and NG tube remain in good position. No new or progressive finding from prior day study.
[2017-11-25] MEDS ORDERED: LORazepam 2 MG/ML VIAL IV PRN (14:41)
[2017-11-25] MEDS ORDERED: FENTANYL CITR 100 MCG/2 ML IV PRN (14:43)
--- NOTE | 2017-11-25 19:22 | PN ---
Date of Progress Note: 11/25/2017 Subjective: The patient doing slightly better, extubated, awake, but not oriented. The patient stat us post dialysis yesterday, tolerated the dialysis. Blood pressure is still on the lower side. Physical Examination: Vital Signs: Blood pressure 100/65, pulse of 88. Chest: Clear to auscultation. Heart: S1, S2. Regular. Abdomen: Soft, nontender. Extremities: Trace edema. Medications: Current medications the patient on include normal saline at 25 per hour, neomycin, nyst atin, Zosyn 3.375 q.8, Tylenol, gabapentin 300 b.i.d., Toprol b.i.d., Lasix 20 b.i.d., pantoprazole, insulin. Laboratory Data: WBC 4.2, H and H 10.7/31.4, platelets 45. Sodium 139, potassium 3.7, bicarb 25, BU N 35, creatinine 4.8, calcium 7.9, phosphorus 5.6. Assessment And Plan: 1.End-stage renal disease. Normal volume. We will continue the patient on dialysis. We will dialy ze the patient. Tomorrow, the patient is going to be dialyzed on high potassium bath given the low p otassium and we will monitor the patient. 2.Hypertension. Currently, blood pressure on the lower side. We will hold all the blood pressure m edications, except the Lasix. 3.Hepatic encephalopathy. We will follow up with primary. 4.Hypokalemia. No need for supplement. We will dialyze on high potassium bath. 5.Secondary hyperparathyroidism, stable. No need for the binder for the time being. CHARLES Voice ID: [id number] Report ID: [id number]
[2017-11-25] MEDS: GABAPENTIN 300 MG CAP PO SCH (20:56)
[2017-11-25] MEDS: ASCORBIC ACID 500 MG TABLET PO SCH (20:56)
[2017-11-25] MEDS: ARIPiprazole 5 MG TAB PO SCH (20:57)
[2017-11-26] MEDS: PIPER/TAZO/NS 3.375gm 3.375 GM/100 ML BAG IVPB SCH ×3 (00:51→17:33)
[2017-11-26] MEDS ORDERED: ZIPRASIDONE MESYLA 20 MG/VIAL IM ONE ×5 (01:52→21:00)
[2017-11-26] MEDS ORDERED: WATER FOR INJ,STERILE 10 ML ONE ×2 (01:55→21:01)
[2017-11-26] MEDS: WATER FOR INJ,STERILE 10 ML IM PRN ×2 (02:00→21:08)
[2017-11-26 05:33] LABS: Absolute Lymphocytes (CBC) 0.8 K/uL (0.7-4.9); Absolute Monocytes 0.5 K/uL (0.1-1.3); Absolute Neutrophil 1.8 K/uL (1.8-8.0); Basophils % 1.3 % (0-1.3); Eosinophils % 9.1 % (0-4.4); Hematocrit 32.6 % (36.0-45.0); Lymphocytes % 23.4 % (15.3-44.8); MCH 32.3 pg (27.0-35.0); MCV 94.7 fL (80-100); MPV 9.4 fL (7.6-11.3); Monocytes % 15.2 % (3.3-12.3); RBC Red Blood Cell Count 3.44 M/uL (3.86-4.86)
[2017-11-26 05:59] LABS: Bilirubin Total 3.1 mg/dL (0.2-1.0); Magnesium 2.2 mg/dL (1.8-2.4); Phosphorus 5.1 mg/dL (2.5-4.9); Potassium 3.4 mmol/L (3.5-5.1); Protein, Total 6.3 g/dL (6.4-8.2)
[2017-11-26] MEDS: INSULIN -REGULAR HUMAN 50 UNIT/0.5 ML ML SQ SCH ×4 (07:30→21:00)
[2017-11-26] MEDS: ASCORBIC ACID 500 MG TABLET PO SCH ×2 (08:10→19:46)
[2017-11-26] MEDS: SPIRONOLACTONE 25 MG TABLET PO SCH ×2 (08:10→19:47)
[2017-11-26] MEDS: GABAPENTIN 300 MG CAP PO SCH (08:10)
[2017-11-26] MEDS: FUROSEMIDE 20 MG TABLET PO SCH ×2 (08:10→19:47)
[2017-11-26] MEDS: LACTULOSE 20 GM/30 ML UCUP PO SCH ×3 (08:11→19:46)
[2017-11-26] MEDS: NEOMYCIN SULFATE 500 MG TAB PO SCH ×2 (08:11→19:47)
[2017-11-26] MEDS: BUPROPRION HCL S.R. 150MG TAB PO SCH ×2 (08:11→19:46)
[2017-11-26] MEDS: PROPRANOLOL HCL 40 MG TAB PO SCH ×2 (08:11→14:54)
[2017-11-26] MEDS: PANTOPRAZOLE 40 MG INJ IVP SCH (08:11)
[2017-11-26] MEDS ORDERED: MULTIVITAMIN WITH MINERALS PO SCH (09:00)
[2017-11-26] MEDS: NYSTATIN PWDR 100000 UNIT/GM TOP SCH ×2 (10:01→20:19)
[2017-11-26] MEDS: FOLIC ACID 1 MG, MULTIVITAMINS INJ 10 ML, THIAMINE HCL 100 MG in NA CHLORIDE 0.9% 1,000 ML IV SCH (10:01)
--- NOTE | 2017-11-26 11:46 | P.PN ---
Subjective Date of Service: 11/26/17 Primary Care Provider: [facility] Chief Complaint: AMS Pt seen and examined at bedside. Chart Reviewed. Pt extubated yesterday. Did well post extubation. However got agitated at night and was given Geodon 20mg last night. This AM pt is lethargic. Saturating well on NC for now. Review of Systems General: As per HPI Physical Examination - Vital Signs Temperature: 97.1 F Blood Pressure: 118/68 Pulse: 73 Respirations: 12 Pulse Ox (%): 100 - Physical Exam General: Alert, Other (Lethargic) HEENT: Atraumatic Neck: Supple Respiratory: Clear to auscultation bilaterally, Normal air movement, Other ( Bursing on the chest noted. Midline) Cardiovascular: Regular rate/rhythm, Normal S1 S2 Gastrointestinal: Normal bowel sounds, Soft and benign, Non-distended, No tenderness Musculoskeletal: Other (Brusing BL LE noted ) Integumentary: No rashes Neurological: Normal speech, Normal tone, Normal affect Lymphatics: No axilla or inguinal lymphadenopathy - Studies Microbiology Data (last 24 hrs): 11/23/17 08:30 Blood - Blood Aerobic Blood Culture - Final 11/23/17 08:30 Blood - Blood Gram Stain - Final 11/23/17 08:30 Blood - Blood Anaerobic Blood Culture - Final Medications List Reviewed: Yes Assessment & Plan - Problems (Diagnosis) (1) Respiratory compromise Onset Date: 11/24/17 Current Visit: Yes Status: Acute Plan: Acute respiratory compromise most likely secondary to GCS of 3 secondary to hepatic encephalopathy. -Now extubated. Lethargic however responding to verbal Stimuli and answering question appropirately -On NC and saturating well -Continue to monitor (2) Hepatic encephalopathy Onset Date: 10/25/17 Current Visit: No Status: Acute Plan: AMS with Unknown Onset at this time. Multifactorial Hepatic Encephalopahty vs uremic -Ammonia 34 today -Lactulose 20mg TID now -Protonix and Rifaxamin (3) UTI (urinary tract infection) Onset Date: 06/07/16 Current Visit: No Status: Acute Plan: Chronic complicated UTI -Currently getting Vanc. Will resume. -Urine culture pending Qualifiers: Urinary tract infection type: acute cystitis Hematuria presence: without hematuria Qualified Code(s): N30.00 - Acute cystitis without hematuria (4) Pancytopenia Onset Date: 11/24/17 Current Visit: Yes Status: Acute Plan: Most likely secondary to liver cirrhosis. -will continue to monitor closely. (5) Liver cirrhosis Onset Date: 02/16/16 Current Visit: No Status: Chronic Qualifiers: Hepatic cirrhosis type: other cirrhosis Qualified Code(s): K74.69 - Other cirrhosis of liver (6) Hepatitis C Onset Date: 06/07/16 Current Visit: No Status: Chronic Plan: Not being treated at this time Qualifiers: Viral hepatitis chronicity: chronic Hepatic coma status: without hepatic coma Qualified Code(s): B18.2 - Chronic viral hepatitis C (7) Congestive heart failure with LV diastolic dysfunction, NYHA class 3 Onset Date: 06/07/16 Current Visit: No Status: Chronic Plan: On Lasix, Spironolactone and BB at this time (8) Depression with anxiety Onset Date: 06/07/16 Current Visit: No Status: Chronic Plan: Will restart home medication at this time (9) Diabetes mellitus Onset Date: 09/01/17 Current Visit: No Status: Chronic Plan: ISS Qualifiers: Diabetes mellitus type: type 2 Diabetes mellitus longterm insulin use: without longterm use Diabetes mellitus complication status: without complication Qualified Code(s): E11.9 - Type 2 diabetes mellitus without complications (10) ESRD (end stage renal disease) on dialysis Onset Date: 10/25/17 Current Visit: No Status: Chronic Plan: Chronic ESRD on HD MWF -Nephrology consulted to resume HD here in the hospital (11) GERD (gastroesophageal reflux disease) Onset Date: 09/27/16 Current Visit: No Status: Chronic Plan: IV protonix Qualifiers: Esophagitis presence: without esophagitis Qualified Code(s): K21.9 - Gastro -esophageal reflux disease without esophagitis (12) HTN (hypertension) Onset Date: 09/27/16 Current Visit: No Status: Chronic Qualifiers: Hypertension type: essential hypertension Discharge Plan: Alf Plan to discharge in: Greater than 2 days - Code Status/Comfort Care Code Status Assessed: Yes Critical Care: Yes (> 45MINS)
[2017-11-26] MEDS: HALOPERIDOL LACT 5 MG/ML INJ IV PRN (19:30)
[2017-11-26] MEDS: ARIPiprazole 5 MG TAB PO SCH (19:46)
[2017-11-26] MEDS: GABAPENTIN 100 MG CAP PO SCH (19:48)
[2017-11-26] MEDS: PROPRANOLOL HCL 10 MG TAB PO SCH (20:18)
[2017-11-26] MEDS ORDERED: WATER FOR INJ,STERILE 10 ML IM ONE (21:05)
--- NOTE | 2017-11-26 21:27 | PN ---
Date of Progress Note: 11/26/2017 Subjective: The patient is doing slightly better, more awake today, still confused. Physical Examination: Vital Signs: Blood pressure of 110/64, pulse of 60. Chest: Faint crackles on the base. Heart: S1, S2. Regular. Abdomen: Soft, nontender. Extremities: No edema. Laboratory Data: H and H 11.1/32.6. Sodium 141, potassium 3.4, bicarb 22, BUN 44, creatinine 5.7, calcium 7.7, phosphor 5.1, magnesium 2.2. Medications: Current medications the patient is on include: 1. Vancomycin. 2. Zosyn 3.375 q.8 h. 3. coreg 25 b.i.d. 4. Inderal. 5. Tylenol. 6. Gabapentin 300 b.i.d. 7. Insulin. 8. Geodon. 9. Lasix 20 b.i.d. Assessment And Plan: 1. End-state renal disease. Scheduled for dialysis today. We will dialyze on high potassium bath. 2. Hypertension. Currently, blood pressure on the lower side. I going to go ahead and decrease Inderal to 10 mg. 3. Hepatic encephalopathy. Still obtunded. I am going to go ahead and decrease gabapentin to 100 b.i.d. 4. Hypokalemia. We dialyze on high potassium bath. 5. Anemia. No need for RENETTA. 6. Infection, unknown source. Continue current antibiotic. Dose appropriate. CHARLES Voice ID: [id number] Report ID: [id number] [facility]
[2017-11-26] MEDS ORDERED: FENTANYL CITR 100 MCG/2 ML IV ONE (23:50)
[2017-11-26] MEDS ORDERED: FENTANYL CITR 100 MCG/2 ML ONE (23:58)
[2017-11-27] MEDS ORDERED: ZIPRASIDONE MESYLA 20 MG/VIAL IM ONE
[2017-11-27] MEDS ORDERED: LORazepam 2 MG/ML VIAL IV ONE (00:24)
[2017-11-27] MEDS ORDERED: LORazepam 2 MG/ML VIAL ONE (00:27)
[2017-11-27] MEDS: PIPER/TAZO/NS 3.375gm 3.375 GM/100 ML BAG IVPB SCH ×2 (00:29→09:02)
[2017-11-27] MEDS: ACETAMINOPHEN 500 MG TAB PO PRN ×2 (05:18→12:34)
[2017-11-27] MEDS: HALOPERIDOL LACT 5 MG/ML INJ IV PRN (05:22)
[2017-11-27 05:35] LABS: Absolute Lymphocytes (CBC) 0.8 K/uL (0.7-4.9); Absolute Monocytes 0.4 K/uL (0.1-1.3); Absolute Neutrophil 2.1 K/uL (1.8-8.0); Basophils % 1.1 % (0-1.3); Hematocrit 34.2 % (36.0-45.0); Lymphocytes % 21.4 % (15.3-44.8); MCH 32.6 pg (27.0-35.0); MCV 93.4 fL (80-100); MPV 9.6 fL (7.6-11.3); Monocytes % 12.5 % (3.3-12.3); RBC Red Blood Cell Count 3.66 M/uL (3.86-4.86)
[2017-11-27 05:51] LABS: Phosphorus 3.5 mg/dL (2.5-4.9); Potassium 3.9 mmol/L (3.5-5.1)
[2017-11-27] MEDS: INSULIN -REGULAR HUMAN 50 UNIT/0.5 ML ML SQ SCH ×4 (07:30→20:43)
[2017-11-27] MEDS: ASCORBIC ACID 500 MG TABLET PO SCH ×2 (09:00→20:25)
[2017-11-27] MEDS: FUROSEMIDE 20 MG TABLET PO SCH ×2 (09:00→20:32)
[2017-11-27] MEDS: GABAPENTIN 100 MG CAP PO SCH (09:00)
[2017-11-27] MEDS: PANTOPRAZOLE 40 MG INJ IVP SCH (09:01)
[2017-11-27] MEDS: LACTULOSE 20 GM/30 ML UCUP PO SCH ×2 (09:01→20:25)
[2017-11-27] MEDS: SPIRONOLACTONE 25 MG TABLET PO SCH ×2 (09:01→20:32)
[2017-11-27] MEDS: NYSTATIN PWDR 100000 UNIT/GM TOP SCH ×2 (09:02→20:24)
[2017-11-27] MEDS: BUPROPRION HCL S.R. 150MG TAB PO SCH ×2 (09:02→20:25)
[2017-11-27] MEDS: NEOMYCIN SULFATE 500 MG TAB PO SCH ×2 (09:02→20:25)
[2017-11-27] MEDS: PROPRANOLOL HCL 10 MG TAB PO SCH (09:02)
--- NOTE | 2017-11-27 12:27 | P.PN ---
Subjective Date of Service: 11/27/17 Primary Care Provider: [facility] Chief Complaint: AMS Pt seen and examined at bedside. Chart Reviewed. Patient continues to get agitated at night and received Geodon 20mg last night. This AM pt is lethargic. Saturating well on NC for now. Review of Systems General: As per HPI Physical Examination - Vital Signs Temperature: 99.4 F Blood Pressure: 87/53 Pulse: 62 Respirations: 14 Pulse Ox (%): 100 - Physical Exam General: Alert, Oriented x2, Other (Appears to be lethargic ) HEENT: Atraumatic Neck: Supple, JVD not distended Respiratory: Normal air movement, Rhonchi/gurgles Cardiovascular: Regular rate/rhythm, Normal S1 S2 Gastrointestinal: Normal bowel sounds, Soft and benign, Non-distended, No tenderness Musculoskeletal: No tenderness Integumentary: Other (Pt with Brusing BL LE. Worse then yesterday) Neurological: Normal speech, Normal tone, Normal affect Lymphatics: No axilla or inguinal lymphadenopathy - Studies Microbiology Data (last 24 hrs): 11/23/17 09:15 Clean Catch Urine [place] Count - Final >100,000 CFU/ML. 11/23/17 09:15 Clean Catch Urine - Final Enterococcus Faecium Medications List Reviewed: Yes Assessment & Plan - Problems (Diagnosis) (1) Respiratory compromise Onset Date: 11/24/17 Current Visit: Yes Status: Acute Plan: Acute respiratory compromise most likely secondary to GCS of 3 secondary to hepatic encephalopathy. -Lethargic however responding to verbal Stimuli and answering question appropriately -On NC and saturating well -Continue to monitor (2) Hepatic encephalopathy Onset Date: 10/25/17 Current Visit: No Status: Acute Plan: AMS with Unknown Onset at this time. Multifactorial Hepatic Encephalopahty vs uremic -Ammonia 17 today -Lactulose 20mg BID now -Protonix and Rifaxamin (3) UTI (urinary tract infection) Onset Date: 06/07/16 Current Visit: No Status: Acute Plan: Chronic complicated UTI -Currently on Vanc but Pt urine Culture is + for VRE -Switch to PO linezolid Qualifiers: Urinary tract infection type: acute cystitis Hematuria presence: without hematuria Qualified Code(s): N30.00 - Acute cystitis without hematuria (4) Pancytopenia Onset Date: 11/24/17 Current Visit: Yes Status: Acute Plan: Most likely secondary to liver cirrhosis. -will continue to monitor closely. -Pt having BL LE spontaneous Bruising most likely 2.2 to thrombocytopenia. (5) Liver cirrhosis Onset Date: 02/16/16 Current Visit: No Status: Chronic Qualifiers: Hepatic cirrhosis type: other cirrhosis Qualified Code(s): K74.69 - Other cirrhosis of liver (6) Hepatitis C Onset Date: 06/07/16 Current Visit: No Status: Chronic Plan: Not being treated at this time Qualifiers: Viral hepatitis chronicity: chronic Hepatic coma status: without hepatic coma Qualified Code(s): B18.2 - Chronic viral hepatitis C (7) Congestive heart failure with LV diastolic dysfunction, NYHA class 3 Onset Date: 06/07/16 Current Visit: No Status: Chronic Plan: On Lasix, Spironolactone and BB at this time (8) Depression with anxiety Onset Date: 06/07/16 Current Visit: No Status: Chronic Plan: Will restart home medication at this time (9) Diabetes mellitus Onset Date: 09/01/17 Current Visit: No Status: Chronic Plan: ISS Qualifiers: Diabetes mellitus type: type 2 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 Diabetes mellitus complication status: without complication Qualified Code(s): E11.9 - Type 2 diabetes mellitus without complications (10) ESRD (end stage renal disease) on dialysis Onset Date: 10/25/17 Current Visit: No Status: Chronic Plan: Chronic ESRD on HD MWF -Nephrology consulted to resume HD here in the hospital (11) GERD (gastroesophageal reflux disease) Onset Date: 09/27/16 Current Visit: No Status: Chronic Plan: IV protonix Qualifiers: Esophagitis presence: without esophagitis Qualified Code(s): K21.9 - Gastro -esophageal reflux disease without esophagitis (12) HTN (hypertension) Onset Date: 09/27/16 Current Visit: No Status: Chronic Qualifiers: Hypertension type: essential hypertension Discharge Plan: Prison Plan to discharge in: 48 Hours - Code Status/Comfort Care Code Status Assessed: Yes Critical Care: Yes (>45 mins)
--- NOTE | 2017-11-27 13:52 | PN ---
Date of Progress Note: 11/27/2017 Subjective: The patient sleepy, received Geodon and Ativan. Physical Examination: Vital Signs: When I saw the patient, blood pressure of 115/84, pulse of 71. Chest: Faint crackles on the base. Heart: S1, S2. Regular. Abdomen: Soft, nontender. Extremity: Trace edema. Multiple bruises. Laboratory Data: WBC 3.5, H and H 11.9/34.2, platelets 47. Sodium 139, potassium 3.9, bicarb 27, BU N 23, creatinine 4.1, calcium 8.1, phosphor 3.5, magnesium of 2. Current Medications: The patient on its include, 1.Neomycin. 2.Zosyn. 3.Inderal 10 daily. 4.Aldactone. 5.Neurontin 100 b.i.d. 6.Bupropion. 7.Wellbutrin. 8.Haloperidol. 9.Geodon. 10.Lasix 20 b.i.d. 11.Lactulose. 12.Zofran. Assessment And Plan: 1.End-stage renal disease, stable. We are going to continue the patient on dialysis TTS. We will m onitor. 2.Hypokalemia, resolved. Dialyze on high potassium bath. 3.Hypertension, controlled. Currently blood pressure on the lower side. I will decrease Inderal further to once a day. 4.Hepatic encephalopathy. We will follow up with the primary. CHARLES Voice ID: [id number] Report ID: [id number]
[2017-11-27] MEDS ORDERED: LINEZOLID 600 MG TAB PO SCH (14:00)
[2017-11-27] MEDS ORDERED: NA CHLORIDE 0.9% IVPB SCH (18:00)
[2017-11-27] MEDS ORDERED: DAPTOMYCIN IVPB SCH (18:00)
[2017-11-27] MEDS ORDERED: NA CHLORIDE 0.9% 0 ML ONE (19:49)
[2017-11-27] MEDS ORDERED: NA CHLORIDE 0.9% 50 ML ONE (19:51)
[2017-11-27] MEDS: ARIPiprazole 5 MG TAB PO SCH (20:24)
[2017-11-28] MEDS: ACETAMINOPHEN 500 MG TAB PO PRN (00:58)
[2017-11-28] MEDS: INSULIN -REGULAR HUMAN 50 UNIT/0.5 ML ML SQ SCH ×4 (07:30→21:00)
[2017-11-28 08:04] LABS: Magnesium 2.3 mg/dL (1.8-2.4); Phosphorus 5.5 mg/dL (2.5-4.9); Potassium 4.1 mmol/L (3.5-5.1)
[2017-11-28] MEDS: NYSTATIN PWDR 100000 UNIT/GM TOP SCH ×2 (08:21→20:59)
[2017-11-28] MEDS: PANTOPRAZOLE 40 MG INJ IVP SCH (08:21)
[2017-11-28] MEDS: LACTULOSE 20 GM/30 ML UCUP PO SCH ×2 (08:21→20:53)
[2017-11-28] MEDS: ASCORBIC ACID 500 MG TABLET PO SCH ×2 (08:22→20:51)
[2017-11-28] MEDS: NEOMYCIN SULFATE 500 MG TAB PO SCH ×2 (08:22→22:43)
[2017-11-28] MEDS: FUROSEMIDE 20 MG TABLET PO SCH ×2 (08:22→20:58)
[2017-11-28] MEDS: PROPRANOLOL HCL 10 MG TAB PO SCH (08:22)
[2017-11-28] MEDS: SPIRONOLACTONE 25 MG TABLET PO SCH ×2 (08:23→20:58)
[2017-11-28] MEDS: BUPROPRION HCL S.R. 150MG TAB PO SCH ×2 (09:14→22:42)
--- NOTE | 2017-11-28 09:45 | P.PN ---
Subjective Date of Service: 11/28/17 Primary Care Provider: [facility] Chief Complaint: AMS Pt seen and examined at bedside. Chart Reviewed. Patient doing well overall. Much more alert and oriented today. Doing well overall. Patient Growing VRE in the urine. Case DW with Pharmacy. Pt needs to be on daptomycin at this time. Family wants patient to be transferred to a different [place] this time. Pt will need to go to SNF for IV Dapatomycin for total of 14days and then can be transferred to the NH from there. Case DW with CM who is working on getting patient over to the . Review of Systems General: As per HPI Physical Examination - Vital Signs Temperature: 97.8 F Blood Pressure: 113/76 Pulse: 72 Respirations: 13 Pulse Ox (%): 98 - Physical Exam General: Alert, In no apparent distress HEENT: Atraumatic, PERRLA, EOMI Neck: Supple, JVD not distended Respiratory: Clear to auscultation bilaterally, Normal air movement Cardiovascular: Regular rate/rhythm, Normal S1 S2 Gastrointestinal: Normal bowel sounds, No tenderness Musculoskeletal: No tenderness Integumentary: Other (BL brusing Noted. ) Neurological: Normal speech, Normal tone, Normal affect Lymphatics: No axilla or inguinal lymphadenopathy - Studies Microbiology Data (last 24 hrs): 11/23/17 08:15 Blood - Blood Aerobic Blood Culture - Final No growth in 5 days. 11/23/17 08:15 Blood - Blood Anaerobic Blood Culture - Final No growth in 5 days. 11/23/17 09:15 Clean Catch Urine [place] Count - Final >100,000 CFU/ML. 11/23/17 09:15 Clean Catch Urine - Final Enterococcus Faecium Medications List Reviewed: Yes Assessment & Plan - Problems (Diagnosis) (1) Respiratory compromise Onset Date: 11/24/17 Current Visit: Yes Status: Resolved Plan: Acute respiratory compromise most likely secondary to GCS of 3 secondary to hepatic encephalopathy. -Resolved now. Doing well overall. AAOx 3 -On NC and saturating well -Awaiting clinical Improvement (2) Hepatic encephalopathy Onset Date: 10/25/17 Current Visit: No Status: Resolved Plan: AMS with Unknown Onset at this time. Multifactorial Hepatic Encephalopahty vs uremic. Now AAOx 3 -Ammonia pending today -Lactulose 20mg BID now -Protonix and Rifaxamin (3) UTI (urinary tract infection) Onset Date: 06/07/16 Current Visit: No Status: Acute Plan: Chronic complicated UTI -Culture + for VRE -Pt is unable to take zyvox given the thrombocytopenia, No macrobid due to Patient Renal Function. -Started on Daptomycin. Will need for total of 14 days at this time -Will consult ID at this time -Pt will need CPK level checked weekly to ensure no Adverse reaction is occuring Qualifiers: Urinary tract infection type: acute cystitis Hematuria presence: without hematuria Qualified Code(s): N30.00 - Acute cystitis without hematuria (4) Pancytopenia Onset Date: 11/24/17 Current Visit: Yes Status: Acute Plan: Most likely secondary to liver cirrhosis. -will continue to monitor closely. -Pt having BL LE spontaneous Bruising most likely 2.2 to thrombocytopenia. (5) Liver cirrhosis Onset Date: 02/16/16 Current Visit: No Status: Chronic Qualifiers: Hepatic cirrhosis type: other cirrhosis Qualified Code(s): K74.69 - Other cirrhosis of liver (6) Hepatitis C Onset Date: 06/07/16 Current Visit: No Status: Chronic Plan: Not being treated at this time Qualifiers: Viral hepatitis chronicity: chronic Hepatic coma status: without hepatic coma Qualified Code(s): B18.2 - Chronic viral hepatitis C (7) Congestive heart failure with LV diastolic dysfunction, NYHA class 3 Onset Date: 06/07/16 Current Visit: No Status: Chronic Plan: On Lasix, Spironolactone and BB at this time (8) Depression with anxiety Onset Date: 06/07/16 Current Visit: No Status: Chronic Plan: Will restart home medication at this time (9) Diabetes mellitus Onset Date: 09/01/17 Current Visit: No Status: Chronic Plan: ISS Qualifiers: Diabetes mellitus type: type 2 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 use Diabetes mellitus complication status: without complication Qualified Code(s): E11.9 - Type 2 diabetes mellitus without complications (10) ESRD (end stage renal disease) on dialysis Onset Date: 10/25/17 Current Visit: No Status: Chronic Plan: Chronic ESRD on HD MWF -Nephrology consulted to resume HD here in the hospital (11) GERD (gastroesophageal reflux disease) Onset Date: 09/27/16 Current Visit: No Status: Chronic Plan: IV protonix Qualifiers: Esophagitis presence: without esophagitis Qualified Code(s): K21.9 - Gastro -esophageal reflux disease without esophagitis (12) HTN (hypertension) Onset Date: 09/27/16 Current Visit: No Status: Chronic Qualifiers: Hypertension type: essential hypertension Qualified Code(s): I10 - Essential (primary) hypertension Discharge Plan: Other Plan to discharge in: Greater than 2 days - Code Status/Comfort Care Code Status Assessed: Yes Critical Care: Yes (>45Mins)
[2017-11-28] MEDS: TRAMADOL HCL 50 MG TAB PO PRN ×2 (11:57→20:53)
[2017-11-28] MEDS ORDERED: CETIRIZINE HCL 5 MG TABLET PO ONE (22:42)
[2017-11-28] MEDS: ARIPiprazole 5 MG TAB PO SCH (22:42)
[2017-11-29 00:25] VITALS: O2SAT 99
--- NOTE | 2017-11-29 00:59 | PN ---
Date of Progress Note: 11/28/2017 Chief Complaint: End-stage renal disease on dialysis. Subjective: The patient is admitted for altered mental status. [facility] She has been treated for hepatic encephalopathy. She underwent dialysis on November 26, 2017 for metabolic clearance and received ultrafiltration to control fluid overload. The patient has minimal peripheral edema. Review of Systems: Denies fever, chills. Physical Examination: Lungs: Clear to auscultation bilaterally. Heart: S1-S2. Abdomen: Soft, benign. Extremities: Trace edema. Laboratory Data: Hemoglobin 11.9, WBC 3.5, platelet count 47,000. Sodium 139, potassium 4.1, chlori de 105, CO2 of 21, BUN 32, creatinine 5.50, calcium 7.9, phosphorus 5.5. Impression: 1.Hepatic encephalopathy. Continue current treatment. 2.Hypertension, controlled. 3.Fluid overload edema improving in response to dialysis. Continue current treatment. 4.Dialysis with ultrafiltration tomorrow. 5.Renal osteodystrophy. Monitor phosphorus level. Adjust binders. 6.Hypoalbuminemia secondary to chronic liver disease. Monitor ammonia level. Adjust treatment. EB/MODL Voice ID: [id number] Report ID: [id number]
[2017-11-29] MEDS: TRAMADOL HCL 50 MG TAB PO PRN ×2 (03:34→08:59)
[2017-11-29 05:25] LABS: Potassium 4.2 mmol/L (3.5-5.1)
[2017-11-29] MEDS: INSULIN -REGULAR HUMAN 50 UNIT/0.5 ML ML SQ SCH ×2 (07:30→13:05)
[2017-11-29 08:21] VITALS: BMI 31.1
[2017-11-29] MEDS: LACTULOSE 20 GM/30 ML UCUP PO SCH (08:48)
[2017-11-29] MEDS: SPIRONOLACTONE 25 MG TABLET PO SCH (08:49)
[2017-11-29] MEDS: SEVELAMER CARBONATE 800 MG TABLET PO SCH ×2 (08:49→13:06)
[2017-11-29] MEDS: ASCORBIC ACID 500 MG TABLET PO SCH (08:49)
[2017-11-29] MEDS: PROPRANOLOL HCL 10 MG TAB PO SCH (08:50)
[2017-11-29] MEDS: NEOMYCIN SULFATE 500 MG TAB PO SCH (08:51)
[2017-11-29] MEDS: BUPROPRION HCL S.R. 150MG TAB PO SCH (08:51)
[2017-11-29] MEDS: NYSTATIN PWDR 100000 UNIT/GM TOP SCH (08:52)
[2017-11-29] MEDS: PANTOPRAZOLE 40 MG INJ IVP SCH (08:52)
[2017-11-29] MEDS: FUROSEMIDE 20 MG TABLET PO SCH (08:59)
[2017-11-29] MEDS ORDERED: DIPHENHYDRAMINE 25 MG TAB/CAP PO PRN (10:37)
[2017-11-29 12:31] VITALS: BP 109/61; TEMP 97.1
--- NOTE | 2017-11-29 17:21 | PN ---
Date of Progress Note: 11/29/2017 Subjective: The patient is doing slightly better. More awake. Starts participating in physical the rapy. Physical Examination: VITAL SIGNS: Blood pressure of 93/55, pulse of 68, afebrile. Chest: Faint crackles on the base. Heart: S1, S2. Systolic murmur. Abdomen: Soft, ascites. Extremities: Trace edema. Multiple bruises. Laboratory Data: WBC 3.5, H and H 11.9/34.2, platelet of 47. Sodium 137, potassium 4.2, bicarb 20, BUN 39, creatinine 6.4, calcium 7.7. Current Medications: The patient on include: 1.Daptomycin. 2.Neomycin sulfate. 3.Nystatin. 4.Phenergan. 5.Lasix 20 b.i.d. 6.Spironolactone 25 b.i.d. 7.Inderal 10 daily. 8.Wellbutrin. 9.Abilify. 10.Lactulose. 11.Renvela 800 with each meal. 12.Zofran. 13.Tramadol. Assessment And Plan: 1.End-stage renal disease. Normal volume. I am going to continue the patient on dialysis. The [facility] is scheduled for dialysis today. 2.Secondary hyperparathyroid. Continue binder. 3.Anemia of chronic kidney disease, H and H is stable. No need for RENETTA. 4.Thrombocytopenia secondary to cirrhosis, stable. We will monitor. 5.Hypotension. I am going to go ahead and discontinue Inderal, discontinue Lasix. We will continue spironolactone for the time being and we will follow up. 6.Deconditioning. Continue PT/OT. 7.Urinary tract infection secondary to vancomycin-resistant enterococci, sensitive to genta. Follow up with the primary. Continue current antibiotic. Case discussed with Dr. Valencia and the charge prosper . We will follow up. JAYLA/VANIA Voice ID: [id number] Report ID: [id number]
--- NOTE | 2017-11-30 09:19 | DS ---
Date of Discharge: 11/29/2017 Consultants: Dr. Tyler and Dr. Tracey with Nephrology. Admitting Diagnoses: 1.Acute respiratory failure. 2.Hepatic encephalopathy. 3.Urinary tract infection, acute cystitis without hematuria. 4.Pancytopenia. 5.Liver cirrhosis secondary to hepatitis C. 6.Chronic hepatitis C without coma. 7.Congestive heart failure, diastolic dysfunction, chronic. 8.Depression with anxiety. 9.Diabetes mellitus type 2 without long-term use of insulin. 10.End-stage renal disease, on dialysis. 11.Gastroesophageal reflux disease without esophagitis. 12.Essential hypertension. Discharge Diagnoses: 1.Acute respiratory failure, resolved. 2.Hepatic encephalopathy, resolved. 3.Noncompliance. 4.Chronic, complicated urinary tract infection. Culture positive for vancomycin-resistant Enterococ ci. We will continue daptomycin for 2 weeks. 5.Pancytopenia secondary to liver cirrhosis. No acute bleed. 6.Hepatitis C, chronic without coma. 7.Liver cirrhosis secondary to hepatitis C. 8.Chronic diastolic heart failure. 9.Depression with anxiety. 10.Diabetes mellitus type 2 without long-term use of insulin. 11.End-stage renal disease, on hemodialysis. 12.Gastroesophageal reflux disease without esophagitis. 13.Essential hypertension. Hospital Course: The patient is a 52-year-old female with complicated past medical history of hepati tis C, cirrhosis, hypertension, diabetes, end-stage renal disease, on dialysis, congestive heart fail ure, recurrent hepatic encephalopathy due to noncompliance with medications and also recurrent UTI, w ho comes in with altered mental status. The patient was found to have an elevated level of ammonia, and she had to be intubated to protect her airway as her GCS scale was 3. The patient was found to h ave UTI and cultures grew out Enterococcus faecalis; however, due to the patient's pancytopenia and r enal disease, she was unable to be placed on p.o. medications like Zyvox and Macrobid. The patient w as then placed on daptomycin. The patient continued her dialysis and cooker chip, Dr. Tyler and Dr. Murphy were also on the case. The patient had a CT scan, did not show any acute abnormalities. Th e patient otherwise did well. Her altered mental status resolved. She was able to be extubated. He r respiratory failure resolved. The patient was then set up for LTAC placement for daptomycin for 2 weeks and was then accepted. The patient was then discharged in a stable condition. Activity: As tolerated. Fall precautions. Diet: Low-sodium, fluid-restricted diet. Followup: Follow up with PCP in 2 to 3 days. Follow up with cooker chip, Dr. Murphy in 2 weeks. Ret urn to ER for worsening condition; weekly CBC, CMP, ESR, CRP. Medications: As per medication reconciliation list. Physical Examination: General: Awake, alert, oriented, no acute distress. CV: S1, S2. No murmurs. Respiratory: Moving air well bilaterally. Abdomen: Soft, nontender, nondistended. Positive bowel sounds. Extremities: No clubbing, cyanosis, edema. Neurologic: Nonfocal. Total time spent discharging the patient was 32 minutes. GABRIEL Voice ID: [id number] Report ID: [id number]
--- NOTE | 2017-12-05 09:56 | CON ---
History Of Present Illness: This is a 52-year-old female. I was consulted for recurrent urinary tra ct infection with VRE. The patient has significant history of liver cirrhosis, hypertension, type 2 diabetes mellitus, end-stage renal disease, on hemodialysis, recurrent urinary tract infection, hepat ic encephalopathy. The patient came to the emergency room with altered mental status from nursing [facility], feels slightly better today, concerned about her belonging as she is going to be moving to [facility] acute care facility. Denies any headache, nausea, vomiting, chest pain, abdominal pain, constipa tion, or diarrhea. Past Medical History: As per HPI. Social History: Lives at care home. Nonsmoker, nondrinker. Family History: Heart disease, diabetes mellitus. Current Medications: Include daptomycin, see [facility] for other medication. Allergies: NO KNOWN DRUG ALLERGIES. Review of Systems: A 10-point review was performed. Physical Examination: General: This is a 52-year-old female, sitting up in easy chair, not in any acute cardiopulmonary di stress. Vital signs: Temperature 98, pulse 68, respirations 16, blood pressure 93/55. HEENT: Unremarkable. Neck: Supple. Lungs: Basilar crackles. Heart: S1, S2. Regular. Abdomen: Soft, nontender. Bowel sounds positive. Extremity: Trace edema. Laboratory Data: Shows WBC 3.5, hemoglobin 9.9, platelets are 47. Chemistry shows sodium 137, potas sium 4.2, chloride 105, bicarb 20, BUN 39, creatinine 6.4, glucose is 126. Microdata: The patient growing Enterococcus faecium in urine with VRE resistant pattern. 3+ yeast a re also noted. Blood cultures from 11/23 are growing Gram stain, Gram-positive cocci in cluster. Bl ood cultures are negative. Assessment And Plan: Recurrent urinary tract infection in a 52-year-old female with multiple medical problems including end-stage renal disease, diabetes mellitus, and hepatic encephalopathy, pancytope noreen. Continue daptomycin and supportive care. We will follow the patient at long-term acute care. NF/MODL Voice ID: [id number] Report ID: [id number]
== END 2017-11-29 15:13 | DRG 441 ==
LOC: ER 08:10 → ERHOLD 11:12 → 3RD-ICU 15:18 → 4TH 11-28 12:35
PROVIDERS: ADMIT Family Medicine; ATTEND Family Medicine
PROC: 0BH17EZ Insertion of Endotracheal Airway into Trachea, Via Natural or Artificial Opening (ICD-10-PCS; principal; 2017-11-23)
PROC: 5A1945Z Respiratory Ventilation, 24-96 Consecutive Hours (ICD-10-PCS; 2017-11-23)
PROC: 5A1D70Z Performance of Urinary Filtration, Intermittent, Less than 6 Hours Per Day (ICD-10-PCS; 2017-11-24)
DX: K72.90 Hepatic failure, unspecified without coma (principal); J96.00 Acute respiratory failure, unspecified whether with hypoxia or hypercapnia; N18.6 End stage renal disease; N30.00 Acute cystitis without hematuria; D61.818 Other pancytopenia; I13.2 Hypertensive heart and chronic kidney disease with heart failure and with stage 5 chronic kidney disease, or end stage renal disease; I50.32 Chronic diastolic (congestive) heart failure; N25.81 Secondary hyperparathyroidism of renal origin; E87.3 Alkalosis; R40.2432 Glasgow coma scale score 3-8, at arrival to emergency department; B95.2 Enterococcus as the cause of diseases classified elsewhere; Z16.21 Resistance to vancomycin; B18.2 Chronic viral hepatitis C; E11.22 Type 2 diabetes mellitus with diabetic chronic kidney disease; Z99.2 Dependence on renal dialysis; F41.8 Other specified anxiety disorders; K21.9 Gastro-esophageal reflux disease without esophagitis; K74.60 Unspecified cirrhosis of liver; Z91.14 Patient's other noncompliance with medication regimen; D63.1 Anemia in chronic kidney disease; I95.9 Hypotension, unspecified; N25.0 Renal osteodystrophy; E88.09 Other disorders of plasma-protein metabolism, not elsewhere classified; E87.6 Hypokalemia; E03.9 Hypothyroidism, unspecified; Z79.4 Long term (current) use of insulin; E66.9 Obesity, unspecified; E11.40 Type 2 diabetes mellitus with diabetic neuropathy, unspecified; E11.21 Type 2 diabetes mellitus with diabetic nephropathy; Z68.29 Body mass index [BMI] 29.0-29.9, adult
CPT/HCPCS: 31500; 36415; 51702; 70450; 71045; 80048; 80053; 80076; 80202; 80307; 81003; 81015; 82140; 82550; 82553; 82805; 82962; 83605; 83690; 83735; 84100; 84145; 84484; 85025; 85610; 85652; 85730; 87040; 87070; 87077; 87086; 87088; 87186; 87205; 90935; 93005; 94002; 94003; 94760; 97163; 99291; 99292; C9113; J0696; J0878; J1630; J2250; J2543; J3010; J3370; J3411; J3486; J7030

== ENCOUNTER 2017-12-29 16:00 | Observation (INO) | payer OTHER ==
[2017-12-29 17:06] LABS: Absolute Lymphocytes (CBC) 0.7 K/uL (0.7-4.9); Absolute Monocytes 0.4 K/uL (0.1-1.3); Absolute Neutrophil 1.6 K/uL (1.8-8.0); Basophils % 1.4 % (0-1.3); Eosinophils % 5.2 % (0-4.4); Hematocrit 26.2 % (36.0-45.0); Lymphocytes % 24.2 % (15.3-44.8); MCH 34.9 pg (27.0-35.0); MCV 96.6 fL (80-100); MPV 9.4 fL (7.6-11.3); Monocytes % 12.7 % (3.3-12.3); RBC Red Blood Cell Count 2.71 M/uL (3.86-4.86)
[2017-12-29 17:18] LABS: Albumin 2.4 g/dL (3.4-5.0); Bilirubin Direct 1.3 mg/dL (0-0.2); Magnesium 2.2 mg/dL (1.8-2.4); Potassium 3.3 mmol/L (3.5-5.1); Protein, Total 6.8 g/dL (6.4-8.2); Troponin (Emerg Dept Use Only) 0.02 ng/mL (0.0-0.045)
--- NOTE | 2017-12-29 17:19 | RAD REPORT ---
EXAM DESCRIPTION: CT - Head Brain Wo Cont - 12/29/2017 4:54 pm CLINICAL HISTORY: CONFUSED Drowsiness COMPARISON: Head Brain Wo Cont dated 11/23/2017; Head Brain Wo Cont dated 10/24/2017 TECHNIQUE: All CT scans are performed using dose optimization technique as appropriate and may inclu de automated exposure control or mA/KV adjustment according to patient size. FINDINGS: No intracranial hemorrhage, hydrocephalus or extra-axial fluid collection.Small rounded ar ea of diminished density is seen in the right francine and midbrain measuring 9 mm. Fluid is present in both the sphenoid sinuses and the right maxillary antrum. The calvarium is intact . IMPRESSION: 9 mm area of diminished density in the francine and midbrain could represent an infarct. MR brain followup would be recommended. Sphenoid sinusitis and right maxillary sinusitis. Findings were discussed with Xochitl Haynes in the ER 5:10 p.m. 12/29/2017 by telephone.
--- NOTE | 2017-12-29 17:19 | RAD REPORT ---
EXAM DESCRIPTION: RAD - Chest Single View - 12/29/2017 4:49 pm CLINICAL HISTORY: confusion Chest pain. COMPARISON: Chest Single View dated 11/25/2017; Chest Single View dated 11/24/2017; Chest Single View da laurie 11/23/2017; Chest Single View dated 10/24/2017 FINDINGS: Portable technique limits examination quality. The lungs are grossly clear. The heart is normal in size. No displaced fractures.Right-sided venous c atheter its tip in the SVC. IMPRESSION: No acute intrathoracic process suspected.
[2017-12-29 17:25] LABS: Blood Morphology Comment NOT SEEN (NOT SEEN); Platelet Estimate DECR; Urine White Blood Cell Casts OK
--- NOTE | 2017-12-29 17:33 | RAD REPORT ---
EXAM DESCRIPTION: US - Extrem Venous W Compress Weston - 12/29/2017 5:21 pm CLINICAL HISTORY: Pain;Swelling Bilateral leg edema and swelling. COMPARISON: Extrem Venous W Compress Weston dated 09/05/2017 TECHNIQUE: Real-time sonographic interrogation of the left and right lower extremity deep venous sys tems was performed. FINDINGS: Normal compressibility, flow augmentation, phasic flow and spontaneous flow is identified in both the left and right lower extremity deep venous systems. IMPRESSION: No sonographic evidence of left or right lower extremity deep venous thrombosis.
[2017-12-29] MEDS ORDERED: VANCOMYCIN 1 GM/250 ML BAG ONE (17:56)
[2017-12-29 17:59] LABS: Protime INR 1.21
--- NOTE | 2017-12-29 18:22 | RAD REPORT ---
EXAM DESCRIPTION: MRI - Brain Wo Cont - 12/29/2017 6:06 pm CLINICAL HISTORY: Confusion/alteration of awareness COMPARISON: December 29, [address] TECHNIQUE: Axial, sagittal, and coronal magnetic images of the brain were obtained. Contrast was not requested FINDINGS: No significant abnormal signal within the brain is noted. Diffusion-weighted/ADC mapping does not reveal evidence of acute infarction. The ventricles are normal caliber. An extra-axial fluid collection is not present Mild mucoperiosteal thickening involves sphenoid sinus. Fluid within the mastoids is not noted. IMPRESSION: Unremarkable unenhanced brain MRI Mild chronic sinusitis
--- NOTE | 2017-12-29 18:27 | ER ---
Nurse's Notes [facility] Name: Ernestina Mackay Age: 52 yrs Sex: Female : 1965 Arrival Date: 12/29/2017 Time: 16:01 Bed 6 Private MD: Dimitri David Diagnosis: Altered mental status, unspecified;Confused Presentation: 12/29 16:02 Presenting complaint: EMS states: pt was at dialysis today at [facility] in , pt dialysis sg nurse reported the pt "speaking funny, and confused during the last hour of her dialysis." pt aa\\T\\[id number] upon EMS arrival at [facility], pt states that she had a fever yesterday and was sent back to [facility] and instructed to return for dialysis today. EMS states BP's 90/50's in route to the facility, negative [place] stroke scale and remained aa\\T\\ox4. Transition of care: patient was not received from another setting of care. Onset of symptoms was December 29, 2017. Risk Assessment: Do you want to hurt yourself or someone else? Patient reports no desire to harm self or others. Initial Sepsis Screen: Does the patient meet any 2 criteria? No. Patient's initial sepsis screen is negative. Does the patient have a suspected source of infection? No. Patient's initial sepsis screen is negative. Care prior to arrival: Glucose check: 88. 16:02 Method Of Arrival: EMS: [facility] sg 16:02 Acuity: TOM 3 sg Historical: - Allergies: 16:07 No Known Allergies; sg - PMHx: 16:07 Anxiety; Cellulitis; CHF; Chronic pain; Cirrhosis; Depression; Diabetes - NIDDM; sg Hepatitis; Hypertension; insomnia; - Immunization history:: Adult Immunizations up to date. - Social history:: Smoking status: Patient/guardian denies using tobacco. - Ebola Screening: : Patient negative for fever greater than or equal to 101.5 degrees Fahrenheit, and additional compatible Ebola Virus Disease symptoms Patient denies exposure to infectious person Patient denies travel to an Ebola-affected area in the 21 days before illness onset No symptoms or risks identified at this time. Screenin:20 Abuse screen: Denies threats or abuse. Denies injuries from another. Nutritional sg screening: No deficits noted. Tuberculosis screening: No symptoms or risk factors identified. Never had TB. Fall Risk None identified. Assessment: 16:31 General: Appears in no apparent distress. comfortable, well groomed, well developed, sg well nourished. Pain: Complains of pain in back and abdomen Quality of pain is described as aching. Neuro: Level of Consciousness is awake, alert, obeys commands, Oriented to person, place, time, situation, Boarding House Cook are equal bilaterally Moves all extremities. Full function Speech Facial symmetry appears normal. Cardiovascular: Heart tones S1 S2 present Patient's skin is warm and dry. Chest pain is denied. Cardiovascular: Dialysis shunt: in the anterior aspect of right upper chest, with no erythema, with no edema, no bleeding noted. Respiratory: Airway is patent Respiratory effort is even, unlabored, Respiratory pattern is regular, symmetrical. GI: Abdomen is round non-distended, Bowel sounds Reports lower abdominal pain. : No signs and/or symptoms were reported regarding the genitourinary system. EENT: No signs and/or symptoms were reported regarding the EENT system. Derm: Skin is intact, is healthy with good turgor, Skin is dry, Skin is pale, Skin temperature is warm redness noted BLE. Musculoskeletal: Circulation, motion, and sensation intact. Swelling present in right leg and left leg. 17:30 Reassessment: Patient appears in no apparent distress at this time. Patient and/or sg family updated on plan of care and expected duration. Pain level reassessed. 18:01 Reassessment: pt off the unit in MRI at this time. sg 18:16 Reassessment: Patient appears in no apparent distress at this time. Patient and/or sg family updated on plan of care and expected duration. Pain level reassessed. Patient is alert, oriented x 3, equal unlabored respirations, skin warm/dry/pink. pt returned from MRI at this time, requesting Ice chips, notified, awaiting new orders at this time. Neuro: Level of Consciousness is awake, alert, obeys commands, Oriented to person, place, time, situation, Boarding House Cook are equal bilaterally Moves all extremities. Full function Speech is normal, Facial symmetry appears normal. Derm: Skin is pale, Skin temperature is warm. 19:18 Reassessment: Patient appears in no apparent distress at this time. Patient and/or sg family updated on plan of care and expected duration. Pain level reassessed. Patient is alert, oriented x 3, equal unlabored respirations, skin warm/dry/pink. pt given dietary tray at this time, pt tolerating well, no new orders recieved. 19:40 General: Appears in no apparent distress. comfortable. Pain: Complains of pain in left ea leg and right leg. Neuro: Level of Consciousness is awake, alert, obeys commands, Oriented to person, place, time, situation, Speech is normal, Facial symmetry appears normal. Cardiovascular: Heart tones S1 S2 present Patient's skin is warm and dry. Respiratory: Airway is patent Respiratory effort is even, unlabored, Respiratory pattern is regular, symmetrical. GI: Abdomen is non-distended, Bowel sounds present X 4 quads. : No signs and/or symptoms were reported regarding the genitourinary system. EENT: No signs and/or symptoms were reported regarding the EENT system. Derm: Skin is intact, is healthy with good turgor, Skin is dry, Skin is pale, Skin temperature is warm. Musculoskeletal: Swelling present in right leg and left leg. 21:04 Reassessment: Patient and/or family updated on plan of care and expected duration. Pain ea level reassessed. Patient is alert, oriented x 3, equal unlabored respirations, skin warm/dry/pink. Report called to Ke FOUNTAIN. Vital Signs: 16:05 BP 110 / 66; Pulse 70; Resp 14; Temp 98.0(O); Pulse Ox 100% on R/A; Pain 0/10; sg 17:27 BP 106 / 60; Pulse 70; Resp 16 S; Pain 0/10; sg 19:00 BP 108 / 60; Pulse 63; Resp 18; Pulse Ox 100% on R/A; ea 20:33 BP 104 / 62; Pulse 71; Resp 18; Pulse Ox 100% ; ea 21:15 BP 100 / 58; Pulse 67; Resp 18; Pulse Ox 99% ; ea ED Course: 16:01 Patient arrived in ED. sg 16:02 Roel Barnes MD is Attending Physician. kdr 16:05 Triage completed. sg 16:05 Arm band placed on. sg 16:08 Dimitri David MD is Private Physician. sg 16:30 David Canchola RN is Primary Nurse. sg 16:31 Missed attempt(s): 20 gauge in right antecubital area. Bleeding controlled, band aid sg applied, catheter tip intact. 16:[address] vr 16:45 Note: u/s will get after CT. hr 16:48 XRAY Chest (1 view) In Process Unspecified. EDMS 16:52 CT Head Brain wo Cont In Process Unspecified. EDMS 16:53 CT completed. Patient tolerated procedure well. Patient moved back from CT. nj 16:53 Missed attempt(s): 22 gauge in left antecubital area. Bleeding controlled, band aid sg applied, catheter tip intact. 17:20 EKG done, by laundry technician. dt2 17:21 US Extremity Venous W Compression Weston In Process Unspecified. EDMS 17:40 Inserted saline lock: 22 gauge in left antecubital area, using aseptic technique. Blood jb1 collected. 17:54 Patient moved to MRI via stretcher. em2 18:03 Brain Wo Cont In Process Unspecified. EDMS 18:26 Babs Maloney MD is Hospitalizing Provider. kdr 19:18 Patient has correct armband on for positive identification. Bed in low position. Call ea light in reach. Side rails up X2. 20:00 Inserted saline lock: 20 gauge in left antecubital area, using aseptic technique. Blood ea collected. IV discontinued, intact, bleeding controlled, No redness/swelling at site. Pressure dressing applied, Pt IV unable to flush with NS flush, pt reports discomfort to site. 20:49 No provider procedures requiring assistance completed. ea Administered Medications: 18:43 Drug: vancoMYCIN 1 grams Route: IVPB; Infused Over: 2 hrs; Site: left antecubital; sg 21:03 Follow up: Response: No adverse reaction; IV Status: Infusion continued upon admission ea 18:55 Drug: Flexeril 10 mg Route: PO; sg 19:58 Follow up: Response: No adverse reaction; Marked relief of symptoms ea 18:56 Drug: traMADol 50 mg Route: PO; sg 19:59 Follow up: Response: No adverse reaction; Marked relief of symptoms ea Outcome: 18:27 Decision to Hospitalize by Provider. kdr 19:18 Admitted to Med/surg accompanied by tech, room 203, with chart, Report called to Ke guzman RN 19:18 Condition: stable 19:18 Instructed on the need for admit. 21:17 Patient left the ED. ea Signatures: Dispatcher [employer] EDVamsi Ochoa [email or web address] David Canchola RN RN sg Roel Barnes MD MD kdr Rod, Haley hr Davis, [place] Duarte Nathan nj Antunez, Elena, RN RN Annamarie Quiroz dt2 Corrections: (The following items were deleted from the chart) 16:34 16:31 Derm: Skin is intact, is healthy with good turgor, Skin is dry, Skin is pale, sg Skin temperature is warm sg
--- NOTE | 2017-12-29 18:28 | EDPHYS ---
Physician Documentation [facility] Name: Ernestina Mackay Age: 52 yrs Sex: Female : 1965 Arrival Date: 12/29/2017 Time: 16:01 Bed 6 Private MD: Dimitri David ED Physician Roel Barnes HPI: 12/30 07:24 This 52 yrs old Female presents to ER via EMS with complaints of Altered kdr Mental Status. 07:24 The patient presents with confusion, decreased mental status, decreased responsiveness, kdr disorientation, trouble concentrating. Onset: The symptoms/episode began/occurred suddenly, just prior to arrival, today, 2 hour(s) ago. Possible causes: CVA or TIA, also reports Aphasia, drug use, sepsis. Associated signs and symptoms: Pertinent positives: confusion, gait abnormality, weakness. Current symptoms: In the emergency department the patient's symptoms have improved, mildly. Patient's baseline: Neuro: alert and fully oriented, Motor: no deficits, Generally weak and ambulates poorly, Ambulation: walks with assist only, Speech: slow, slurred, The patient has a previous history of. It is unknown whether or not the patient has had similar symptoms in the past. The patient has not recently seen a physician. Historical: - Allergies: 12/29 16:07 No Known Allergies; sg - PMHx: 16:07 Anxiety; Cellulitis; CHF; Chronic pain; Cirrhosis; Depression; Diabetes - NIDDM; sg Hepatitis; Hypertension; insomnia; - Immunization history:: Adult Immunizations up to date. - Social history:: Smoking status: Patient/guardian denies using tobacco. - Ebola Screening: : Patient negative for fever greater than or equal to 101.5 degrees Fahrenheit, and additional compatible Ebola Virus Disease symptoms Patient denies exposure to infectious person Patient denies travel to an Ebola-affected area in the 21 days before illness onset No symptoms or risks identified at this time. ROS: 12/30 07:24 Constitutional: Negative for fever, chills, and weight loss, Eyes: Negative for injury, kdr pain, redness, and discharge, ENT: Negative for injury, pain, and discharge, Neck: Negative for injury, pain, and swelling, Cardiovascular: Negative for chest pain, palpitations, and edema, Respiratory: Negative for shortness of breath, cough, wheezing, and pleuritic chest pain, Abdomen/GI: Negative for abdominal pain, nausea, vomiting, diarrhea, and constipation, Back: Negative for injury and pain, : Negative for injury, bleeding, discharge, and swelling, MS/Extremity: Negative for injury and deformity, Skin: Negative for injury, rash, and discoloration, Psych: Negative for depression, anxiety, suicide ideation, homicidal ideation, and hallucinations, Allergy/Immunology: Negative for hives, rash, and allergies, Endocrine: Negative for neck swelling, polydipsia, polyuria, polyphagia, and marked weight changes, Hematologic/Lymphatic: Negative for swollen nodes, abnormal bleeding, and unusual bruising. Neuro: Positive for altered mental status, gait disturbance, speech changes, weakness, Negative for dizziness, headache, hearing loss, loss of consciousness, numbness, seizure activity, syncope, near syncope, tingling, tinnitus, tremor, visual changes. Exam: 07:24 Constitutional: This is a well developed, well nourished patient who is awake, kdr somnolent, slow to respond but in no acute distress. Head/Face: Normocephalic, atraumatic. Eyes: Pupils equal round and reactive to light, extra-ocular motions intact. Lids and lashes normal. Conjunctiva and sclera are non-icteric and not injected. Cornea within normal limits. Periorbital areas with no swelling, redness, or edema. Neck: Trachea midline, no thyromegaly or masses palpated, and no cervical lymphadenopathy. Supple, full range of motion without nuchal rigidity, or vertebral point tenderness. No Meningismus. Chest/axilla: Normal chest wall appearance and motion. Nontender with no deformity. No lesions are appreciated. Cardiovascular: Regular rate and rhythm with a normal S1 and S2. No gallops, murmurs, or rubs. Normal PMI, no JVD. No pulse deficits. Respiratory: Lungs have equal breath sounds bilaterally, clear to auscultation and percussion. No rales, rhonchi or wheezes noted. No increased work of breathing, no retractions or nasal flaring. Abdomen/GI: Soft, non-tender, with normal bowel sounds. No distension or tympany. No guarding or rebound. No evidence of tenderness throughout. Back: No spinal tenderness. No costovertebral tenderness. Full range of motion. Skin: Warm, dry with normal turgor. Normal color with no rashes, no lesions, and no evidence of cellulitis. MS/ Extremity: Pulses equal, no cyanosis. Neurovascular intact. Full, normal range of motion. Psych: Awake, alert, with orientation to person, place and time. Behavior, mood, and affect are within normal limits. 07:24 Neuro: Orientation: is normal, Mentation: slow to respond, sleepy, somnolent, Cranial nerves: no acute changes, Cerebellar function: Motor: is grossly normal based on the patient's age, no acute changes, Sensation: no obvious gross deficits. Vital Signs: 12/29 16:05 BP 110 / 66; Pulse 70; Resp 14; Temp 98.0(O); Pulse Ox 100% on R/A; Pain 0/10; sg 17:27 BP 106 / 60; Pulse 70; Resp 16 S; Pain 0/10; sg 19:00 BP 108 / 60; Pulse 63; Resp 18; Pulse Ox 100% on R/A; ea 20:33 BP 104 / 62; Pulse 71; Resp 18; Pulse Ox 100% ; ea 21:15 BP 100 / 58; Pulse 67; Resp 18; Pulse Ox 99% ; ea MDM: 18:27 Patient medically screened. [facility] 12/30 07:24 Data reviewed: vital signs, nurses notes, lab test result(s), radiologic studies. kdr Counseling: I had a detailed discussion with the patient and/or guardian regarding: the historical points, exam findings, and any diagnostic results supporting the discharge/admit diagnosis, lab results, radiology results, the need for further work-up and treatment in the hospital. 12/29 16:29 Order name: Basic Metabolic Panel; Complete Time: 18:18 kdr 12/29 16:29 Order name: CBC with Diff; Complete Time: 18:18 kdr 12/29 16:29 Order name: LFT's; Complete Time: 18:18 kdr 12/29 16:29 Order name: Magnesium; Complete Time: 18:18 kdr 12/29 16:29 Order name: NT PRO-BNP; Complete Time: 18:18 kdr 12/29 16:29 Order name: PT-INR; Complete Time: 18:18 kdr 12/29 16:29 Order name: Ptt, Activated; Complete Time: 18:18 kdr 12/29 16:29 Order name: Troponin (emerg Dept Use Only); Complete Time: 18:18 kdr 12/29 16:29 Order name: XRAY Chest (1 view); Complete Time: 18:18 kdr 12/29 16:29 Order name: CT Head Brain wo Cont; Complete Time: 18:18 kdr 12/29 16:37 Order name: AMMONIA; Complete Time: 18:18 kdr 12/29 16:37 Order name: Lactate; Complete Time: 18:18 kdr 12/29 16:37 Order name: Procalcitonin; Complete Time: 19:02 kdr 12/29 17:14 Order name: CBC Smear Scan; Complete Time: 18:18 EDMS 12/29 16:29 Order name: EKG; Complete Time: 16:31 kdr 12/29 16:29 Order name: Cardiac monitoring; Complete Time: 16:35 kdr 12/29 16:29 Order name: EKG - Nurse/Tech; Complete Time: 16:35 kdr 12/29 16:29 Order name: IV Saline Lock; Complete Time: 19:20 kdr 12/29 16:29 Order name: Labs collected and sent; Complete Time: 19:20 kdr 12/29 16:29 Order name: O2 Per Protocol; Complete Time: 16:35 kdr 12/29 16:29 Order name: O2 Sat Monitoring; Complete Time: 16:35 kdr 12/29 16:37 Order name: US Extremity Venous W Compression Weston; Complete Time: 18:18 kdr 12/29 18:03 Order name: Brain Wo Cont; Complete Time: 19:02 EDMS Administered Medications: 12/29 18:43 Drug: vancoMYCIN 1 grams Route: IVPB; Infused Over: 2 hrs; Site: left antecubital; sg 21:03 Follow up: Response: No adverse reaction; IV Status: Infusion continued upon admission ea 18:55 Drug: Flexeril 10 mg Route: PO; sg 19:58 Follow up: Response: No adverse reaction; Marked relief of symptoms ea 18:56 Drug: traMADol 50 mg Route: PO; sg 19:59 Follow up: Response: No adverse reaction; Marked relief of symptoms ea Disposition: 12/29/17 18:27 Hospitalization ordered by Babs Maloney for Observation. Preliminary diagnosis are Altered mental status, unspecified, Confused. - Bed requested for Telemetry/MedSurg (observation). - Status is Observation. ea - Condition is Fair. - Problem is new. - Symptoms have improved. UTI on Admission? No Signatures: Dispatcher [employer] EDMS David Canchola, RN RN sg Roel Barnes MD MD kdr Page, Corey, PA PA cp Katey Mary, RN RN ea Corrections: (The following items were deleted from the chart) 18:03 17:12 MR STROKE PROTOCOL+MRI.RAD.BRZ ordered. EDMS EDMS 20:27 18:27 Hospitalization Ordered by Babs Maloney MD for Observation. Preliminary cp diagnosis is Altered mental status, unspecified; Confused. Bed requested for Telemetry/MedSurg (observation). Status is Observation. Condition is Fair. Problem is new. Symptoms have improved. UTI on Admission? No. kdr 21:17 20:27 12/29/2017 18:27 Hospitalization Ordered by Babs Maloney MD for Observation. ea Preliminary diagnosis is Altered mental status, unspecified; Confused. Bed requested for Telemetry/MedSurg (observation). Status is Observation. Condition is Fair. Problem is new. Symptoms have improved. UTI on Admission? No. cp
[2017-12-29] MEDS ORDERED: TRAMADOL HCL 50 MG TAB ONE (18:58)
[2017-12-29] MEDS ORDERED: CYCLOBENZAPRINE 10 MG TAB ONE (18:58)
--- NOTE | 2017-12-29 19:55 | P.HP ---
Certification for Inpatient Patient admitted to: Observation With expected LOS: <2 Midnights Practitioner: I am a practitioner with admitting privileges, knowledge of patient current condition, hospital course, and medical plan of care. 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 PMI is on the patient hypotensive 90/50. Apparently, the patient had fever yesterday. She denied any nausea, vomiting, she has loose stools because is taking lactulose. She also denied chest pain, shortness of breath or cough. At arrival, the patient was afebrile, blood pressure 110/60. At my encounter, the patient was alert and oriented, but she still feels weaker than usual. Allergies No Known Drug Allergies Allergy (Verified 09/01/17 01:37) Unknown Home medications list reviewed: Yes Home Medications: Ascorbic Acid 500 mg PO BID 06/04/16 Gabapentin [Neurontin*] 300 mg PO BID 06/04/16 Multivitamin with Minerals [Oz Multivitamin with Mineral] 1 tab PO DAILY 06/04 Neomycin Sulfate 3 tab PO BID 06/04/16 Insulin Lispro [Humalog] See Protocol SQ BID 09/25/16 ARIPiprazole [Aripiprazole] 10 mg PO BEDTIME 08/07/17 Insulin Detemir [Levemir] 25 units SQ DAILY WITH BREAKFAST 08/07/17 Lactulose 60 ml PO TID #1 solution 08/12/17 Nystatin Powder [Mycostatin (Powder)*] 1 appl TOP BID #1 btl 08/12/17 Famotidine [Pepcid*] 20 mg PO BEDTIME 09/01/17 Propranolol HCl 20 mg PO TID 09/01/17 Furosemide [Lasix] 20 mg PO BID 10/24/17 Tramadol HCl [Ultram] 50 mg PO Q6H PRN 10/24/17 DAPTOmycin [Daptomycin] 500 mg IV SEECOM #1 vial 11/29/17 - Past Medical/Surgical History Diabetic: Yes -: Hepatitis C with Cirrhosis of liver -: CHF -: HTN -: Hypothyroidism -: GERD -: Peptic Ulcer -: UTI, Recurrent -: Chronic back pain -: Anxiety/Depression -: UTI, Recurrent -: Chronic back pain -: Anxiety/Depression -: Cardiac Cath -: -: Tonsillectomy Psychosocial/ Personal History: Lives by herself. Currently at intermediate - Family History Mother -: Heart disease, Other (see notes) Notes: takes b/p meds Father -: Diabetes - Social History Smoking Status: Never smoker Alcohol use: No CD- Drugs: No Caffeine use: Yes Place of Residence: Home Review of Systems 10-point ROS is otherwise unremarkable Physical Examination - Physical Exam General: Alert, In no apparent distress, Oriented x3 HEENT: Atraumatic, PERRLA, Mucous membr. moist/pink, EOMI, Sclerae nonicteric Neck: Supple, 2+ carotid pulse no bruit, No LAD, Without JVD or thyroid abnormality Respiratory: Clear to auscultation bilaterally, Normal air movement Cardiovascular: Regular rate/rhythm, Normal S1 S2 Gastrointestinal: Normal bowel sounds, No tenderness Musculoskeletal: No tenderness, Swelling (Lower extremity edema 1+ bilaterally) Integumentary: No rashes Neurological: Normal speech, Normal strength at 5/5 x4 extr, Normal tone, Normal affect Lymphatics: No axilla or inguinal lymphadenopathy - Studies Laboratory Data (last 24 hrs) 12/29/17 17:35: PT 14.3 H, INR 1.21, APTT 55.1 H 12/29/17 16:40: WBC 2.9 L, Hgb 9.5 L, Hct 26.2 L, Plt Count 64 L* 12/29/17 16:40: Sodium 135 L, Potassium 3.3 L, BUN 15, Creatinine 2.80 H, Glucose 58 L, Magnesium 2.2, Total Bilirubin 2.0 H, AST 120 H, ALT 44, Alkaline Phosphatase 240 H Assessment and Plan - Problems (Diagnosis) (1) Acute encephalopathy Current Visit: No Status: Acute (2) ESRD (end stage renal disease) on dialysis Onset Date: 10/25/17 Current Visit: No Status: Chronic (3) HTN (hypertension) Onset Date: 09/27/16 Current Visit: No Status: Chronic Qualifiers: Hypertension type: essential hypertension Qualified Code(s): I10 - Essential (primary) hypertension (4) Hepatitis C Onset Date: 06/07/16 Current Visit: No Status: Chronic Qualifiers: Viral hepatitis chronicity: chronic Hepatic coma status: without hepatic coma Qualified Code(s): B18.2 - Chronic viral hepatitis C (5) Liver cirrhosis Onset Date: 02/16/16 Current Visit: No Status: Chronic Qualifiers: Hepatic cirrhosis type: other cirrhosis Qualified Code(s): K74.69 - Other cirrhosis of liver - Plan The patient will be admitted to the hospital due to altered mental status during hemodialysis. Ammonia level within normal limits, WBC and the lower side , similar to previous record. Procalcitonin and lactate within normal limits. There is no obvious clinical signs of infection. CT of the head shows a 9 mm area of diminished density in the francine and midbrain could represent an infarct. However MRI of the brain showed no acute abnormality. Will admit the patient under observation to evaluate the progress of her symptoms. Differential diagnosis include excess of medication (tramadol and flexeril), excess of fluid removed during hemodialysis. Will evaluate the patient in a.m., his symptoms resolved, she may be discharged home. - Advance Directives Does patient have a Living Will: No Does patient have a Durable POA for Healthcare: No - Code Status/Comfort Care Code Status Assessed: Yes Code Status: Full Code
[2017-12-29] MEDS: INSULIN -REGULAR HUMAN 50 UNIT/0.5 ML ML SQ SCH (21:00)
[2017-12-29] MEDS: GABAPENTIN 100 MG CAP PO SCH (22:26)
[2017-12-29] MEDS: LACTULOSE 20 GM/30 ML UCUP PO SCH (22:26)
[2017-12-29] MEDS: PROPRANOLOL HCL 10 MG TAB PO SCH (22:27)
[2017-12-29] MEDS: ONDANSETRON 4 MG/2 ML VIAL IV PRN (23:02)
[2017-12-29] MEDS: TRAMADOL HCL 50 MG TAB PO PRN (23:02)
[2017-12-29] MEDS ORDERED: POTASSIUM CL SA 10 MEQ TAB PO ONE (23:31)
[2017-12-30] MEDS: TRAMADOL HCL 50 MG TAB PO PRN ×4 (05:07→23:24)
[2017-12-30 05:22] LABS: Albumin 2.4 g/dL (3.4-5.0); Bilirubin Total 1.8 mg/dL (0.2-1.0); Potassium 3.4 mmol/L (3.5-5.1); Protein, Total 6.6 g/dL (6.4-8.2)
[2017-12-30] MEDS: INSULIN -REGULAR HUMAN 50 UNIT/0.5 ML ML SQ SCH ×4 (07:30→21:00)
--- NOTE | 2017-12-30 07:35 | EKG ---
Test Date: 2017-12-29 Test Time: 16:32:46 Mammalogy Teacher: HAKEEM MEASUREMENT RESULTS: Intervals: Rate: 70 VA: 180 QRSD: 82 QT: 464 QTc: 501 [place]: P: 24 VA: 180 QRS: -7 T: 37 INTERPRETIVE STATEMENTS: Normal sinus rhythm Prolonged QT Abnormal ECG Compared to ECG 11/23/2017 08:37:20 Sinus bradycardia no longer present T-wave abnormality no longer present Electronically Signed On 12-30-17 07:34:06 CDT by Bart Eduardo
[2017-12-30] MEDS ORDERED: POTASSIUM CL SA 10 MEQ TAB PO ONE (08:00)
[2017-12-30] MEDS ORDERED: GLUCAGON 1 MG/VIAL IM PRN (08:13)
[2017-12-30] MEDS ORDERED: D50W 25 GM/50 ML SYRINGE IV PRN (08:13)
[2017-12-30] MEDS: GABAPENTIN 100 MG CAP PO SCH ×3 (08:47→21:50)
[2017-12-30] MEDS: PROPRANOLOL HCL 10 MG TAB PO SCH ×3 (08:48→21:00)
[2017-12-30] MEDS: LACTULOSE 20 GM/30 ML UCUP PO SCH ×4 (10:01→21:47)
--- NOTE | 2017-12-30 11:44 | RAD REPORT ---
EXAM DESCRIPTION: CT - Abdomen Pelvis Wo Contrast - 12/30/2017 11:17 am CLINICAL HISTORY: Abdominal pain COMPARISON: CT September 2016 TECHNIQUE: Axial [address] imaging of the abdomen and pelvis was performed without IV contrast. No IV contrast was given because of allergy, abnormal renal function, patient refusal or physician re quest. No oral contrast given. All CT scans are performed using dose optimization technique as appropriate and may include automated exposure control or mA/KV adjustment according to patient size. FINDINGS: Stranding or atelectasis changes are present. No acute lung base finding seen. Liver is grossly abnormal. There is an enlarged left lobe. There is a prominent nodular contour to th e liver capsule. No focal liver lesions seen on noncontrast imaging. Splenomegaly is present with 20 centimeter craniocaudal dimension. No pancreatic or peripancreatic acute finding. Numerous dilated va rices are seen in the upper abdomen. Recannulized and enlarged umbilical vein present. Prominent bila teral inguinal veins are present. Gallbladder is normal size. Wall appears prominent. Gallstones can be occult. No biliary tree dilatation. No urinary bladder abnormality. Uterus and ovaries show no suspicious findings for age. No hydronephrosis or suspicious renal mass. No significant adrenal finding. Isodense renal masses an d pyelonephritis cannot be excluded in the absence of IV contrast. Fluid fills but does not dilate the stomach. No gastric wall thickening or mass. Dense medications ar e seen in the gastric antrum. No dilated large or small bowel loops. There is moderate stool volume f illing but not dilating the entirety of the colon. No free air or pneumatosis. No mass or bulky lymph adenopathy. Minimal amount of ascites is present. There is a mild stranding in the peritoneal and subcutaneous fa t. The appendix is normal in diameter. Air is seen within the lumen. The fluid in stranding near the appendix is believed be part of the overall liver disease and ascites process rather than a appendix specific abnormality. No suspicious bony findings. IMPRESSION: No free air, bowel obstruction, suspicious mass or other surgically emergent finding. Prominent cirrhosis liver changes with no focal liver lesion on noncontrast imaging. There is splenom egaly present along with multiple dilated varices. Gallbladder wall is thickened and edematous. Gallstones can be occult. No biliary tree dilatation. Gallbladder finding could be part of acute cholecystitis if there are matching clinical findings. Gal lbladder wall can be thickened and edematous in the setting of cirrhosis. Minimal amount of ascites and stranding in the peritoneal fat. This is a non drainable volume of flui d. Full assessment is limited is the absence of IV contrast.
[2017-12-30] MEDS: ONDANSETRON 4 MG/2 ML VIAL IV PRN ×2 (14:05→23:24)
[2017-12-30] MEDS ORDERED: TEMAZEPAM 15 MG CAP PO PRN (15:10)
[2017-12-30] MEDS ORDERED: PROPRANOLOL HCL PO SCH (15:15)
--- NOTE | 2017-12-30 15:21 | P.PN ---
Subjective Date of Service: 12/30/17 Chief Complaint: Acute encephalopathy Patient seen and examined at bedside with RN. Currently alert and oriented x3. However does appear to be lethargic than before. No other complaints to offer this morning. Denies having any chest pain shortness of breath or any other abnormalities at this time. States that she has not been given her medications at the halfway recently and she does not know where she gets her anxiety and her depression medication at the halfway either. Review of Systems 10-point ROS is otherwise unremarkable Physical Examination - Vital Signs Temperature: 96.9 F Blood Pressure: 97/56 Pulse: 56 Respirations: 16 Pulse Ox (%): 100 - Physical Exam General: Alert, In no apparent distress, Oriented x3 HEENT: Atraumatic, PERRLA, EOMI Neck: Supple, JVD not distended Respiratory: Clear to auscultation bilaterally, Normal air movement Cardiovascular: Regular rate/rhythm, Normal S1 S2 Gastrointestinal: Normal bowel sounds, No tenderness Musculoskeletal: No tenderness Integumentary: No rashes Neurological: Normal speech, Normal tone, Normal affect Lymphatics: No axilla or inguinal lymphadenopathy - Studies Laboratory Data (last 24 hrs) 12/29/17 17:35: PT 14.3 H, INR 1.21, APTT 55.1 H 12/29/17 16:40: WBC 2.9 L, Hgb 9.5 L, Hct 26.2 L, Plt Count 64 L* 12/29/17 16:40: Sodium 135 L, Potassium 3.3 L, BUN 15, Creatinine 2.80 H, Glucose 58 L, Magnesium 2.2, Total Bilirubin 2.0 H, AST 120 H, ALT 44, Alkaline Phosphatase 240 H Medications List Reviewed: Yes Assessment And Plan - Current Problems (Diagnosis) (1) Altered mental status Current Visit: No Status: Acute Plan: AMS now resolved. Most Likely 2.2 to Medication SE -AAOX3 -Continue to monitor -Initial Workup negative Qualifiers: Altered mental status type: unspecified Qualified Code(s): R41.82 - Altered mental status, unspecified (2) Chronic renal disease Onset Date: 09/01/17 Current Visit: No Status: Chronic Qualifiers: Chronic kidney disease stage: stage 4 (severe) Qualified Code(s): N18.4 - Chronic kidney disease, stage 4 (severe) (3) Pancytopenia Onset Date: 11/24/17 Current Visit: No Status: Chronic (4) Congestive heart failure with LV diastolic dysfunction, NYHA class 3 Onset Date: 06/07/16 Current Visit: No Status: Chronic (5) Depression with anxiety Onset Date: 06/07/16 Current Visit: No Status: Chronic (6) Diabetes mellitus Onset Date: 09/01/17 Current Visit: No Status: Chronic Qualifiers: Diabetes mellitus type: type 2 Diabetes mellitus mcc insulin use: without mcc use Diabetes mellitus complication status: without complication Qualified Code(s): E11.9 - Type 2 diabetes mellitus without complications (7) ESRD (end stage renal disease) on dialysis Onset Date: 10/25/17 Current Visit: No Status: Chronic (8) GERD (gastroesophageal reflux disease) Onset Date: 09/27/16 Current Visit: No Status: Chronic Qualifiers: Esophagitis presence: without esophagitis Qualified Code(s): K21.9 - Gastro -esophageal reflux disease without esophagitis (9) HTN (hypertension) Onset Date: 09/27/16 Current Visit: No Status: Chronic Qualifiers: Hypertension type: essential hypertension Qualified Code(s): I10 - Essential (primary) hypertension (10) Hepatitis C Onset Date: 06/07/16 Current Visit: No Status: Chronic Qualifiers: Viral hepatitis chronicity: chronic Hepatic coma status: without hepatic coma Qualified Code(s): B18.2 - Chronic viral hepatitis C (11) Liver cirrhosis Onset Date: 02/16/16 Current Visit: No Status: Chronic Qualifiers: Hepatic cirrhosis type: other cirrhosis Qualified Code(s): K74.69 - Other cirrhosis of liver Discharge Plan: Fdc Plan to discharge in: 24 Hours - Code Status/Comfort Care Code Status Assessed: Yes Critical Care: No
[2017-12-30] MEDS ORDERED: PROPRANOLOL HCL 10 MG TAB PO SCH (16:00)
[2017-12-30] MEDS ORDERED: HOME MED 1 EA UNK (Lactulose [Lactulose] 30 ML) PO SCH (21:00)
[2017-12-30] MEDS ORDERED: GABAPENTIN 100 MG CAP PO SCH (21:00)
[2017-12-30] MEDS ORDERED: HOME MED 1 EA UNK (Aripiprazole [Abilify] 10 MG) PO SCH (21:00)
[2017-12-30] MEDS: ARIPiprazole 5 MG TAB PO SCH (21:49)
[2017-12-30] MEDS: FAMOTIDINE 20 MG TAB PO SCH (21:54)
[2017-12-31] MEDS: TRAMADOL HCL 50 MG TAB PO PRN ×3 (05:00→17:26)
[2017-12-31] MEDS: ONDANSETRON 4 MG/2 ML VIAL IV PRN ×3 (05:01→17:27)
[2017-12-31 05:55] LABS: Magnesium 2.4 mg/dL (1.8-2.4)
[2017-12-31] MEDS: INSULIN -REGULAR HUMAN 50 UNIT/0.5 ML ML SQ SCH ×4 (07:30→21:00)
[2017-12-31] MEDS ORDERED: HOME MED 1 EA UNK (Folic Acid/Vitamin B Comp W-C [Nephro-Vite Tablet] 0.8 MG) PO SCH (09:00)
[2017-12-31] MEDS ORDERED: NEOMYCIN 500 MG PO SCH (09:00)
[2017-12-31] MEDS: PROPRANOLOL HCL 10 MG TAB PO SCH ×3 (09:00→21:00)
[2017-12-31] MEDS: LACTULOSE 20 GM/30 ML UCUP PO SCH ×4 (09:00→21:17)
[2017-12-31] MEDS: GABAPENTIN 100 MG CAP PO SCH ×3 (09:00→21:17)
[2017-12-31] MEDS: ASCORBIC ACID 500 MG TABLET PO SCH (09:50)
[2017-12-31] MEDS: SERTRALINE HCL 50 MG TAB PO SCH (09:50)
[2017-12-31] MEDS: MULTIVITAMINS,THERAPEUT 1 TAB PO SCH (09:50)
[2017-12-31] MEDS: NEOMYCIN SULFATE 500 MG TAB PO SCH (09:50)
[2017-12-31 11:41] LABS: Urine Appearance CLOUDY; Urine Blood 1+ (NEG); Urine Color DK YELLOW; Urine Glucose NEGATIVE (NEG); Urine Protein TRACE (NEG); Urine Specific Gravity 1.015 (1.005-1.030)
[2017-12-31 12:27] LABS: Urine Bilirubin 1+ (NEG); Urine Microscopic Reflex ORDER UMIC
[2017-12-31 12:34] LABS: Urine Bacteria >50 /HPF (<20); Urine Culture Reflex Order NOT NEEDED; Urine RBC <5 /HPF (NONE SEEN)
[2017-12-31 12:39] LABS: Urine Mucus SLIGHT /HPF (NONE SEEN)
--- NOTE | 2017-12-31 13:11 | P.PN ---
Subjective Date of Service: 12/31/17 Chief Complaint: Acute encephalopathy doing better no new complaint except she is still not thinking clearly Physical Examination - Vital Signs Temperature: 97.5 F Blood Pressure: 93/51 Pulse: 58 Respirations: 20 Pulse Ox (%): 99 - Physical Exam General: Alert, In no apparent distress HEENT: Atraumatic, PERRLA, EOMI Neck: Supple, JVD not distended Respiratory: Clear to auscultation bilaterally, Normal air movement Cardiovascular: Regular rate/rhythm, Normal S1 S2 Gastrointestinal: Normal bowel sounds, No tenderness Musculoskeletal: No tenderness Integumentary: No rashes Neurological: Normal speech, Normal tone, Normal affect Lymphatics: No axilla or inguinal lymphadenopathy - Studies Medications List Reviewed: Yes Assessment And Plan - Plan - Current Problems (Diagnosis) (1) Altered mental status Current Visit: No Status: Acute Plan: AMS now resolved. Most Likely 2.2 to Medication SE -AAOX3 -Continue to monitor -Initial Workup negative Qualifiers: Altered mental status type: unspecified Qualified Code(s): R41.82 - Altered mental status, unspecified (2) Chronic renal disease Onset Date: 09/01/17 Current Visit: No Status: Chronic Qualifiers: Chronic kidney disease stage: stage 4 (severe) Qualified Code(s): N18.4 - Chronic kidney disease, stage 4 (severe) (3) Pancytopenia Onset Date: 11/24/17 Current Visit: No Status: Chronic (4) Congestive heart failure with LV diastolic dysfunction, NYHA class 3 Onset Date: 06/07/16 Current Visit: No Status: Chronic (5) Depression with anxiety Onset Date: 06/07/16 Current Visit: No Status: Chronic (6) Diabetes mellitus Onset Date: 09/01/17 Current Visit: No Status: Chronic Qualifiers: Diabetes mellitus type: type 2 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 insulin use: without halfway use Diabetes mellitus complication status: without complication Qualified Code(s): E11.9 - Type 2 diabetes mellitus without complications (7) ESRD (end stage renal disease) on dialysis Onset Date: 10/25/17 Current Visit: No Status: Chronic (8) GERD (gastroesophageal reflux disease) Onset Date: 09/27/16 Current Visit: No Status: Chronic Qualifiers: Esophagitis presence: without esophagitis Qualified Code(s): K21.9 - Gastro -esophageal reflux disease without esophagitis (9) HTN (hypertension) Onset Date: 09/27/16 Current Visit: No Status: Chronic Qualifiers: Hypertension type: essential hypertension Qualified Code(s): I10 - Essential (primary) hypertension (10) Hepatitis C Onset Date: 06/07/16 Current Visit: No Status: Chronic Qualifiers: Viral hepatitis chronicity: chronic Hepatic coma status: without hepatic coma Qualified Code(s): B18.2 - Chronic viral hepatitis C (11) Liver cirrhosis Onset Date: 02/16/16 Current Visit: No Status: Chronic Qualifiers: Hepatic cirrhosis type: other cirrhosis Qualified Code(s): K74.69 - Other cirrhosis of liver Discharge Plan: Half-Way Plan to discharge in: 24 Hours - Code Status/Comfort Care Code Status Assessed: Yes Critical Care: No Metabolic Encephalopathy due to UTI UTI unknown organism Plans: will send Ucx/S Start IV Ceftraxiaone August residential tomorrow
[2017-12-31] MEDS ORDERED: CEFTRIAXONE 1 GM/NS 50 ML 1 GM/50 ML BAG IV SCH (14:00)
[2017-12-31] MEDS: CEFTRIAXONE/SWI 1gm 1 GM/10 ML SYR IV SCH (14:18)
[2017-12-31] MEDS: ARIPiprazole 5 MG TAB PO SCH (21:16)
[2017-12-31] MEDS: FAMOTIDINE 20 MG TAB PO SCH (21:17)
[2017-12-31 23:09] VITALS: O2SAT 100
[2018-01-01] MEDS: TRAMADOL HCL 50 MG TAB PO PRN ×2 (04:12→10:39)
[2018-01-01] MEDS: ONDANSETRON 4 MG/2 ML VIAL IV PRN ×2 (04:12→10:39)
[2018-01-01 04:55] LABS: Absolute Lymphocytes (CBC) 0.6 K/uL (0.7-4.9); Absolute Monocytes 0.2 K/uL (0.1-1.3); Absolute Neutrophil 1.7 K/uL (1.8-8.0); Basophils % 2.4 % (0-1.3); Eosinophils % 6.7 % (0-4.4); Hematocrit 25.3 % (36.0-45.0); MCH 33.7 pg (27.0-35.0); MCV 95.8 fL (80-100); MPV 9.4 fL (7.6-11.3); Monocytes % 8.7 % (3.3-12.3); RBC Red Blood Cell Count 2.64 M/uL (3.86-4.86)
[2018-01-01 05:08] LABS: Albumin 2.4 g/dL (3.4-5.0); Bilirubin Total 1.8 mg/dL (0.2-1.0); Potassium 4.1 mmol/L (3.5-5.1); Protein, Total 6.6 g/dL (6.4-8.2)
[2018-01-01 05:18] VITALS: BMI 37.2
[2018-01-01] MEDS: INSULIN -REGULAR HUMAN 50 UNIT/0.5 ML ML SQ SCH ×2 (07:30→11:30)
[2018-01-01] MEDS: NEOMYCIN SULFATE 500 MG TAB PO SCH (08:51)
[2018-01-01] MEDS: ASCORBIC ACID 500 MG TABLET PO SCH (08:52)
[2018-01-01] MEDS: CEFTRIAXONE/SWI 1gm 1 GM/10 ML SYR IV SCH (08:52)
[2018-01-01] MEDS: GABAPENTIN 100 MG CAP PO SCH (08:52)
[2018-01-01] MEDS: LACTULOSE 20 GM/30 ML UCUP PO SCH ×2 (08:52→14:22)
[2018-01-01] MEDS: MULTIVITAMINS,THERAPEUT 1 TAB PO SCH (08:52)
[2018-01-01] MEDS: SERTRALINE HCL 50 MG TAB PO SCH (08:52)
[2018-01-01] MEDS: PROPRANOLOL HCL 10 MG TAB PO SCH ×2 (08:55→14:00)
[2018-01-01 14:55] VITALS: BP 105/59; TEMP 97
--- NOTE | 2018-01-02 15:12 | P.DS ---
Admission Date: 12/29/17 Discharge Date: 01/01/18 Disposition: TRANSFER TO CUSTODIAL Discharge Condition: GOOD Reason for Admission: Acute encephalopathy - Problems (1) Acute encephalopathy Onset Date: 12/30/17 Status: Acute (2) UTI (urinary tract infection) Onset Date: 06/07/16 Status: Acute Qualifiers: Urinary tract infection type: acute cystitis Hematuria presence: without hematuria Qualified Code(s): N30.00 - Acute cystitis without hematuria (3) Chronic renal disease Onset Date: 09/01/17 Status: Chronic Qualifiers: Chronic kidney disease stage: stage 4 (severe) Qualified Code(s): N18.4 - Chronic kidney disease, stage 4 (severe) (4) Congestive heart failure with LV diastolic dysfunction, NYHA class 3 Onset Date: 06/07/16 Status: Chronic (5) ESRD (end stage renal disease) on dialysis Onset Date: 10/25/17 Status: Chronic (6) HTN (hypertension) Onset Date: 09/27/16 Status: Chronic Qualifiers: Hypertension type: essential hypertension Qualified Code(s): I10 - Essential (primary) hypertension (7) Hepatitis C Onset Date: 06/07/16 Status: Chronic Qualifiers: Viral hepatitis chronicity: chronic Hepatic coma status: without hepatic coma Qualified Code(s): B18.2 - Chronic viral hepatitis C (8) Liver cirrhosis Onset Date: 02/16/16 Status: Chronic Qualifiers: Hepatic cirrhosis type: other cirrhosis Qualified Code(s): K74.69 - Other cirrhosis of liver (9) Thrombocytopenia Onset Date: 06/07/16 Status: Chronic Brief History of Present Illness: Ms Mackay is a 52-year-old woman with history of multiple medical problems including 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 PMI is on the patient hypotensive 90/50. Apparently, the patient had fever yesterday. She denied any nausea, vomiting, she has loose stools because is taking lactulose. She also denied chest pain, shortness of breath or cough. At arrival, the patient was afebrile, blood pressure 110/60. At my encounter, the patient was alert and oriented, but she still feels weaker than usual. Hospital Course: She was treated with IV abx for UTI. Clinically she is much improved. Final ucx mixed growth. She is discharged back to snf in stable condition Vital Signs/Physical Exam: Temp Pulse Resp BP Pulse Ox 97 F 56 18 105/59 L 99 01/01/18 12:00 01/01/18 14:00 01/01/18 12:00 01/01/18 12:00 01/01/18 12:00 General: Alert, In no apparent distress HEENT: Atraumatic, PERRLA, EOMI Neck: Supple, JVD not distended Respiratory: Clear to auscultation bilaterally, Normal air movement Cardiovascular: Regular rate/rhythm, Normal S1 S2 Gastrointestinal: Normal bowel sounds, No tenderness Musculoskeletal: No tenderness Integumentary: No rashes Neurological: Normal speech, Normal tone, Normal affect Lymphatics: No axilla or inguinal lymphadenopathy Laboratory Data at Discharge: WBC 2.8 K/uL (4.3-10.9) L 01/01/18 04:33 Hgb 8.9 g/dL (12.0-15.0) L 01/01/18 04:33 Hct 25.3 % (36.0-45.0) L 01/01/18 04:33 Plt Count 47 K/uL (152-406) L* D 01/01/18 04:33 PT 14.3 SECONDS (9.5-12.5) H 12/29/17 17:35 INR 1.21 12/29/17 17:35 APTT 55.1 SECONDS (24.3-36.9) H 12/29/17 17:35 Sodium 128 mmol/L (136-145) L 01/01/18 04:33 Potassium 4.1 mmol/L (3.5-5.1) 01/01/18 04:33 BUN 41 mg/dL (7-18) H 01/01/18 04:33 Creatinine 5.40 mg/dL (0.55-1.3) H* 01/01/18 04:33 Glucose 82 mg/dL (74-106) 01/01/18 04:33 Magnesium 2.4 mg/dL (1.8-2.4) 12/31/17 04:16 Total Bilirubin 1.8 mg/dL (0.2-1.0) H 01/01/18 04:33 AST 101 U/L (15-37) H 01/01/18 04:33 ALT 33 U/L (12-78) 01/01/18 04:33 Alkaline Phosphatase 233 U/L (45-117) H 01/01/18 04:33 Home Medications: Aripiprazole [Abilify] 10 mg PO BEDTIME 12/30/17 Ascorbic Acid 500 mg PO DAILY 12/30/17 Famotidine 20 mg PO BEDTIME 12/30/17 Folic Acid/Vitamin B Comp W-C [Nephro-Dulce Tablet] 0.8 mg PO DAILY 12/30/17 Furosemide [Lasix] 40 mg PO DAILY 12/30/17 Gabapentin [Neurontin] 100 mg PO BEDTIME 12/30/17 Gabapentin [Neurontin] 100 mg PO BID 12/30/17 Lactulose 30 ml PO TID 12/30/17 Lidocaine 5% Patch [Lidoderm 5% Patch] 1 patch TD DAILY 12/30/17 Neomycin 500mg 3 tab PO DAILY 12/30/17 Propranolol HCl 0.5 tab PO SEECOM 12/30/17 Sertraline [Zoloft] 50 mg PO DAILY 12/30/17 Sulfamethoxazole/Trimethoprim [Bactrim 400-80 mg Tablet] 1 each PO SEECOM Temazepam [Restoril] 15 mg PO BEDTIME PRN 12/30/17 Tramadol HCl [Ultram] 50 mg PO Q6HP PRN 12/30/17 Diet: Renal Activity: Ad renny Time spent managing pt's care (in minutes): 15
== END 2018-01-01 15:38 ==
LOC: ER 16:00 → ERHOLD 18:28 → 2ND 20:46
PROVIDERS: ADMIT Family Medicine; ATTEND Internal Medicine Hematology & Oncology
DX: N30.00 Acute cystitis without hematuria (principal); G93.40 Encephalopathy, unspecified; I13.2 Hypertensive heart and chronic kidney disease with heart failure and with stage 5 chronic kidney disease, or end stage renal disease; N18.6 End stage renal disease; I50.32 Chronic diastolic (congestive) heart failure; Z99.2 Dependence on renal dialysis; B18.2 Chronic viral hepatitis C; K74.69 Other cirrhosis of liver; E11.22 Type 2 diabetes mellitus with diabetic chronic kidney disease; Z79.4 Long term (current) use of insulin; G89.4 Chronic pain syndrome; D61.818 Other pancytopenia; F41.8 Other specified anxiety disorders; K21.9 Gastro-esophageal reflux disease without esophagitis
CPT/HCPCS: 36415 ×2; 70450; 70551; 71045; 74176; 80048 ×2; 80053 ×2; 80076; 82140; 82962 ×15; 83605; 83735 ×2; 83880; 84132 ×2; 84145; 84484; 85025 ×2; 85610; 85730; 87086; 87088; 93005; 93970; 96365; 96366; 97163; 99285; G0378 ×2; J0696 ×2; J2405 ×7; J3370; 81003; 81015

== ENCOUNTER 2018-01-20 18:32 | Observation (INO) | payer OTHER ==
[2018-01-20 19:17] LABS: Absolute Lymphocytes (CBC) 0.7 K/uL (0.7-4.9); Absolute Monocytes 0.4 K/uL (0.1-1.3); Basophils % 1.4 % (0-1.3); Eosinophils % 1.4 % (0-4.4); Hematocrit 36.7 % (36.0-45.0); Lymphocytes % 15.8 % (15.3-44.8); MCH 34.1 pg (27.0-35.0); MCV 97.9 fL (80-100); MPV 8.7 fL (7.6-11.3); Monocytes % 8.6 % (3.3-12.3); Protime INR 1.18; RBC Red Blood Cell Count 3.75 M/uL (3.86-4.86)
--- NOTE | 2018-01-20 19:26 | ER ---
Nurse's Notes [facility] Name: Ernestina Mackay Age: 52 yrs Sex: Female : 1965 Arrival Date: 01/20/2018 Time: 18:33 Bed 6 Private MD: Diagnosis: Chest pain, unspecified;End stage renal disease Presentation: 01/20 18:34 Presenting complaint: EMS states: Pt had dialysis, took approximately 5 liters off. jl7 Post treatment pt was sitting in waiting room and c/o SOB, chest tightness, KOTHARI and back ache. Transition of care: patient was received from another setting of care (ambulatory specialty care practice), [facility]. Onset of symptoms was January 20, 2018. Risk Assessment: Do you want to hurt yourself or someone else? Patient reports no desire to harm self or others. Initial Sepsis Screen: Does the patient meet any 2 criteria? No. Patient's initial sepsis screen is negative. Does the patient have a suspected source of infection? No. Patient's initial sepsis screen is negative. Care prior to arrival: None. 18:34 Method Of Arrival: EMS: [facility] jl7 18:34 Acuity: TOM 3 jl7 Triage Assessment: 18:40 General: Appears in no apparent distress. uncomfortable, Behavior is calm, cooperative. jl7 Pain: Complains of pain in diaphragm Pain radiates to mid back area Pain currently is 6 out of 10 on a pain scale. EENT: No signs and/or symptoms were reported regarding the EENT system. Neuro: Level of Consciousness is awake, alert, obeys commands, Oriented to person, place, time, situation. Cardiovascular: Patient's skin is warm and dry. Respiratory: Airway is patent Respiratory effort is even, unlabored, Respiratory pattern is regular, symmetrical. Derm: Skin is pink, warm \T\ dry. MOVERS: 18:40 LMP N/A - Post-menopause 7 Historical: - Allergies: 18:40 NKDA; jl7 - Home Meds: 18:40 Abilify 1 mg/mL Oral soln 10 mL once daily at bedtime [Active]; acetaminophen 325 mg jl7 Oral tab 2 tabs every 6 hours for as needed for pain [Active]; Nepro Carb Steady 0.08-1.80 gram-kcal/mL oral liqd [Active]; ascorbic acid (vitamin C) 500 mg tab twice a day [Active]; nystatin 100,000 unit/gram Topical powd 2 times per day [Active]; Pepcid 20 mg Oral tab 1 tab once daily [Active]; Humalog sliding scale Sub-Q twice a day [Active]; propranolol 20 mg Oral tab 1 tab 3 times per day [Active]; lactulose 10 gram/15 mL (15 mL) Oral soln 30 mL 3 times per day [Active]; Levemir 100 unit/mL subcutaneous soln 25 Units SQ every morning for Type 2 Diabetes Mellitus [Active]; Wellbutrin SR 150 mg Oral TbER 1 tab 2 times per day [Active]; neomycin 500 mg Oral tab 3 tabs 2 times per day [Active]; multivitamin with minerals Oral tab daily [Active]; - PMHx: 18:40 Anxiety; Cellulitis; CHF; Chronic pain; Cirrhosis; Depression; Diabetes - NIDDM; jl7 Hepatitis; Hypertension; insomnia; - Immunization history:: Adult Immunizations up to date. - Social history:: Smoking status: Patient/guardian denies using tobacco. - Ebola Screening: : No symptoms or risks identified at this time. - Family history:: not pertinent. Screenin:43 Abuse screen: Denies threats or abuse. Denies injuries from another. Nutritional jl7 screening: No deficits noted. Tuberculosis screening: No symptoms or risk factors identified. Fall Risk IV access (20 points). Total Montes Fall Scale indicates No Risk (0-24 pts). Assessment: 19:15 General: Appears in no apparent distress. comfortable, Behavior is calm, cooperative, tl2 appropriate for age. Pain: Complains of pain in diaphragm Pain radiates to mid back area Pain currently is 6 out of 10 on a pain scale. Neuro: Level of Consciousness is awake, alert, obeys commands, confused, Oriented to person, place, time, situation. Neuro: Cardiovascular: Rhythm is sinus rhythm. Respiratory: Airway is patent Respiratory effort is even, unlabored, Respiratory pattern is regular, symmetrical. GI: No signs and/or symptoms were reported involving the gastrointestinal system. : No signs and/or symptoms were reported regarding the genitourinary system. Derm: Skin is pink, warm \T\ dry. 20:30 Reassessment: Patient appears in no apparent distress at this time. Patient and/or tl2 family updated on plan of care and expected duration. Pain level reassessed. Patient is alert, oriented x 3, equal unlabored respirations, skin warm/dry/pink. 21:27 Reassessment: Patient appears in no apparent distress at this time. Patient and/or tl2 family updated on plan of care and expected duration. Pain level reassessed. Patient is alert, oriented x 3, equal unlabored respirations, skin warm/dry/pink. Pt stable and ready for transport to floor. Vital Signs: 18:40 BP 114 / 89; Pulse 102; Resp 18 S; Pulse Ox 100% on R/A; Weight 88.2 kg (R); Height 5 jl7 ft. 6 in. (167.64 cm) (R); Pain 6/10; 18:59 Temp 99.3(O); jl7 21:27 BP 121 / 76; Pulse 106; Resp 20; Pulse Ox 100% on 2 lpm NC; tl2 18:40 Body Mass Index 31.38 (88.20 kg, 167.64 cm) jl7 ED Course: 18:33 Patient arrived in ED. jl7 18:36 Triage completed. jl7 18:40 Arm band placed on right wrist. jl7 18:42 Dionte Godoy MD is Attending Physician. [facility] 18:43 Patient has correct armband on for positive identification. Bed in low position. Call jl7 light in reach. Side rails up X 1. conveyor monitor on. Pulse ox on. NIBP on. Warm blanket given. 18:50 EKG done, by ED staff, reviewed by Dionte Godoy MD. jb1 18:59 Initial lab(s) drawn, by il, sent to lab. Inserted saline lock: 20 gauge in left jl7 antecubital area, using aseptic technique. Blood collected. 19:17 XRAY Chest (1 view) In Process Unspecified. EDMS 19:24 Rosario Thakur MD is Hospitalizing Provider. [facility] 19:56 Kat Davis, ESSIE is Primary Nurse. tl2 21:27 No provider procedures requiring assistance completed. Patient admitted, IV remains in tl2 place. Administered Medications: No medications were administered Outcome: 19:25 Decision to Hospitalize by Provider. kb 21:27 Admitted to Med/surg accompanied by tech, via stretcher, room 225, with oxygen, with tl2 chart, Report called to Celina Dempsey 21:27 Condition: stable 21:27 Discharge instructions given to patient, Instructed on the need for admit. 21:29 Patient left the ED. tl2 Signatures: Dispatcher [employer] Vamsi Christian jb1 Dionte Godoy MD MD cha Knox, Taylor RN RN tl2 Tana Avendaño RN RN jl7
--- NOTE | 2018-01-20 19:26 | EDPHYS ---
Physician Documentation [facility] Name: Ernestina Mackay Age: 52 yrs Sex: Female : 1965 Arrival Date: 01/20/2018 Time: 18:33 Bed 6 Private MD: ED Physician Dionte Godoy HPI: 01/20 19:19 This 52 yrs old Female presents to ER via EMS with complaints of chest pain, kb weakness, sp dialysis. 19:19 The patient or guardian reports chest pain that is located primarily in the anterior kb chest wall. Onset: just prior to arrival. sp dialysis. The pain does not radiate. Onset: The symptoms/episode began/occurred this morning. Associated signs and symptoms: The patient has no apparent associated signs or symptoms. The chest pain is described as a heaviness. Modifying factors: The symptoms are alleviated by nothing. the symptoms are aggravated by nothing. Severity of pain: At its worst the pain was mild in the emergency department the pain has resolved. 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 LMP N/A - Post-menopause Historical: - Allergies: 18:40 NKDA; jl7 - Home Meds: 18:40 Abilify 1 mg/mL Oral soln 10 mL once daily at bedtime [Active]; acetaminophen 325 mg jl7 Oral tab 2 tabs every 6 hours for as needed for pain [Active]; Nepro Carb Steady 0.08-1.80 gram-kcal/mL oral liqd [Active]; ascorbic acid (vitamin C) 500 mg tab twice a day [Active]; nystatin 100,000 unit/gram Topical powd 2 times per day [Active]; Pepcid 20 mg Oral tab 1 tab once daily [Active]; Humalog sliding scale Sub-Q twice a day [Active]; propranolol 20 mg Oral tab 1 tab 3 times per day [Active]; lactulose 10 gram/15 mL (15 mL) Oral soln 30 mL 3 times per day [Active]; Levemir 100 unit/mL subcutaneous soln 25 Units SQ every morning for Type 2 Diabetes Mellitus [Active]; Wellbutrin SR 150 mg Oral TbER 1 tab 2 times per day [Active]; neomycin 500 mg Oral tab 3 tabs 2 times per day [Active]; multivitamin with minerals Oral tab daily [Active]; - PMHx: 18:40 Anxiety; Cellulitis; CHF; Chronic pain; Cirrhosis; Depression; Diabetes - NIDDM; jl7 Hepatitis; Hypertension; insomnia; - Immunization history:: Adult Immunizations up to date. - Social history:: Smoking status: Patient/guardian denies using tobacco. - Ebola Screening: : No symptoms or risks identified at this time. - Family history:: not pertinent. ROS: 19:19 Constitutional: Negative for fever, chills, and weight loss, Eyes: Negative for injury, kb pain, redness, and discharge, ENT: Negative for injury, pain, and discharge, Neck: Negative for injury, pain, and swelling, Respiratory: Negative for shortness of breath, cough, wheezing, and pleuritic chest pain, Abdomen/GI: Negative for abdominal pain, nausea, vomiting, diarrhea, and constipation, Back: Negative for injury and pain, : Negative for injury, bleeding, discharge, and swelling, Skin: Negative for injury, rash, and discoloration, Neuro: Negative for headache, weakness, numbness, tingling, and seizure, Psych: Negative for depression, anxiety, suicide ideation, homicidal ideation, and hallucinations, Allergy/Immunology: Negative for hives, rash, and allergies, Endocrine: Negative for neck swelling, polydipsia, polyuria, polyphagia, and marked weight changes, Hematologic/Lymphatic: Negative for swollen nodes, abnormal bleeding, and unusual bruising. 19:19 Cardiovascular: Positive for chest pain. 19:19 MS/extremity: Positive for swelling, of the right leg and left leg. Exam: 19:19 Constitutional: This is a well developed, well nourished patient who is awake, alert, kb and in no acute distress. Head/Face: Normocephalic, atraumatic. Eyes: Pupils equal round and reactive to light, extra-ocular motions intact. Lids and lashes normal. Conjunctiva and sclera are non-icteric and not injected. Cornea within normal limits. Periorbital areas with no swelling, redness, or edema. ENT: Nares patent. No nasal discharge, no septal abnormalities noted. Tympanic membranes are normal and external auditory canals are clear. Oropharynx with no redness, swelling, or masses, exudates, or evidence of obstruction, uvula midline. Mucous membranes moist. Neck: Trachea midline, no thyromegaly or masses palpated, and no cervical lymphadenopathy. Supple, full range of motion without nuchal rigidity, or vertebral point tenderness. No Meningismus. Chest/axilla: Normal chest wall appearance and motion. Nontender with no deformity. No lesions are appreciated. Cardiovascular: Regular rate and rhythm with a normal S1 and S2. No gallops, murmurs, or rubs. Normal PMI, no JVD. No pulse deficits. Respiratory: Lungs have equal breath sounds bilaterally, clear to auscultation and percussion. No rales, rhonchi or wheezes noted. No increased work of breathing, no retractions or nasal flaring. Abdomen/GI: Soft, non-tender, with normal bowel sounds. No distension or tympany. No guarding or rebound. No evidence of tenderness throughout. Back: No spinal tenderness. No costovertebral tenderness. Full range of motion. Skin: Warm, dry with normal turgor. Normal color with no rashes, no lesions, and no evidence of cellulitis. MS/ Extremity: Pulses equal, no cyanosis. Neurovascular intact. Full, normal range of motion. Neuro: Awake and alert, GCS 15, oriented to person, place, time, and situation. Cranial nerves II-XII grossly intact. Motor strength 5/5 in all extremities. Sensory grossly intact. Cerebellar exam normal. Normal gait. Psych: Awake, alert, with orientation to person, place and time. Behavior, mood, and affect are within normal limits. Vital Signs: 18:40 BP 114 / 89; Pulse 102; Resp 18 S; Pulse Ox 100% on R/A; Weight 88.2 kg (R); Height 5 jl7 ft. 6 in. (167.64 cm) (R); Pain 6/10; 18:59 Temp 99.3(O); jl7 21:27 BP 121 / 76; Pulse 106; Resp 20; Pulse Ox 100% on 2 lpm NC; tl2 18:40 Body Mass Index 31.38 (88.20 kg, 167.64 cm) jl7 MDM: 18:42 Patient medically screened. [facility] 19:19 Data reviewed: vital signs, nurses notes, lab test result(s), EKG, radiologic studies, kb plain films. 01/20 18:43 Order name: Basic Metabolic Panel [facility] 01/20 18:43 Order name: CBC with Diff [facility] 01/20 18:43 Order name: LFT's [facility] 01/20 18:43 Order name: Magnesium [facility] 01/20 18:43 Order name: NT PRO-BNP [facility] 01/20 18:43 Order name: PT-INR; Complete Time: 19:23 [facility] 01/20 18:43 Order name: Troponin (emerg Dept Use Only) [facility] 01/20 18:43 Order name: XRAY Chest (1 view) [facility] 01/20 18:43 Order name: EKG; Complete Time: 18:44 [facility] 01/20 18:43 Order name: Cardiac monitoring; Complete Time: 18:50 [facility] 01/20 18:43 Order name: EKG - Nurse/Tech; Complete Time: 18:50 [facility] 01/20 18:43 Order name: IV Saline Lock; Complete Time: 18:59 [facility] 01/20 19:22 Order name: CBC Smear Scan [facility] 01/20 19:34 Order name: CONS Physician Consult [facility] 01/20 18:43 Order name: Labs collected and sent; Complete Time: 19:12 [facility] 01/20 18:43 Order name: O2 Per Protocol; Complete Time: 18:50 [facility] 01/20 18:43 Order name: O2 Sat Monitoring; Complete Time: 18:50 [facility] Administered Medications: No medications were administered Disposition: 01/20/18 19:25 Hospitalization ordered by Rosario Thakur for Observation. Preliminary diagnosis are Chest pain, unspecified, End stage renal disease. - Bed requested for Telemetry/MedSurg (observation). - Status is Observation. tl2 - Condition is Stable. - Problem is new. - Symptoms have improved. UTI on Admission? No Signatures: Dispatcher [employer] [facility] Estefany Clemente RN RN mw Anderson, Corey, MD MD cha Knox, Taylor RN RN tl2 Tana Avendaño RN RN jl7 Corrections: (The following items were deleted from the chart) 19:32 19:25 Hospitalization Ordered by Rosario Thakur MD for Observation. Preliminary jackie diagnosis is Chest pain, unspecified; End stage renal disease. Bed requested for Telemetry/MedSurg (observation). Status is Observation. Condition is Stable. Problem is new. Symptoms have improved. UTI on Admission? No. [facility] 21:29 19:32 01/20/2018 19:25 Hospitalization Ordered by Rosario Thakur MD for Observation. tl2 Preliminary diagnosis is Chest pain, unspecified; End stage renal disease. Bed requested for Telemetry/MedSurg (observation). Status is Observation. Condition is Stable. Problem is new. Symptoms have improved. UTI on Admission? No. mw
[2018-01-20 19:36] LABS: ALT/SGPT 33 U/L (12-78); AST/SGOT 116 U/L (15-37); Albumin 3.2 g/dL (3.4-5.0); Alkaline Phosphatase 443 U/L (45-117); BUN Blood Urea Nitrogen 13 mg/dL (7-18); Bicarbonate 25 mmol/L (21-32); Bilirubin Direct 1.7 mg/dL (0-0.2); Bilirubin Total 2.7 mg/dL (0.2-1.0); Glucose Level 132 mg/dL (74-106); Magnesium 2.5 mg/dL (1.8-2.4); NT PRO-BNP 1177 pg/mL (<125); Potassium 3.2 mmol/L (3.5-5.1); Protein, Total 9.4 g/dL (6.4-8.2); Sodium Level 133 mmol/L (136-145); Troponin (Emerg Dept Use Only) < 0.02 ng/mL (0.0-0.045)
[2018-01-20 19:37] LABS: Blood Morphology Comment NOT SEEN (NOT SEEN); Platelet Estimate DECR; Urine White Blood Cell Casts OK
--- NOTE | 2018-01-20 19:45 | RAD REPORT ---
EXAM DESCRIPTION: RAD - Chest Single View - 01/20/2018 7:17 pm CLINICAL HISTORY: CHEST PAIN Chest pain. COMPARISON: Chest Single View dated 12/29/2017; Chest Single View dated 11/25/2017; Chest Single View da laurie 11/24/2017; Chest Single View dated 11/23/2017 FINDINGS: Portable technique limits examination quality. The lungs are grossly clear. The heart is normal in size. No displaced fractures.Right-sided venous c atheter tip in the SVC. IMPRESSION: No acute intrathoracic process suspected.
[2018-01-20] MEDS ORDERED: MORPHINE 4 MG/ML SYR IV PRN (20:05)
[2018-01-20] MEDS ORDERED: ALPRAZOLAM 0.25 MG TABLET PO PRN (20:05)
[2018-01-20] MEDS ORDERED: ACETAMINOPHEN 500 MG TAB PO PRN (20:05)
[2018-01-20] MEDS ORDERED: ENOXAPARIN 30 MG/0.3 ML SQ SCH (21:00)
[2018-01-20] MEDS: METOPROLOL TAR 50 MG TAB PO SCH (22:02)
[2018-01-21 04:03] VITALS: O2SAT 96
[2018-01-21 05:41] VITALS: BMI 31.9
[2018-01-21] MEDS ORDERED: ACETAMINOPHEN 325 MG TABLET PO PRN (07:27)
[2018-01-21] MEDS ORDERED: NITROGLYCERIN 0.4 MG/TAB SL PRN (07:27)
[2018-01-21] MEDS ORDERED: METHYLPREDNISOLONE 125 MG INJ IV ONE (07:29)
--- NOTE | 2018-01-21 07:36 | P.HP ---
Certification for Inpatient Patient admitted to: Observation With expected LOS: <2 Midnights Patient will require the following post-hospital care: None Practitioner: I am a practitioner with admitting privileges, knowledge of patient current condition, hospital course, and medical plan of care. Services: Services provided to patient in accordance with Admission requirements found in Title 42 Section 412.3 of the Code of Federal Regulations Patient History Date of Service: 01/20/18 Reason for admission: Chest pain rule out acute coronary syndrome History of Present Illness: Patient is a 52-year-old female who came to the hospital with chest discomfort. Pain was mainly in the sternal region. Patient has been having this sensation of congestion. She denies having a cough but she has recently noticed that her voice is become more hoarse. She feels like she is losing her voice over the last few days. She appears to be having a laryngitis. She denies any diaphoresis, shortness of breath, lightheadedness. She denies fever, shakes, or chills. At this time will rule her out for acute coronary syndrome. Will also start her on anti-inflammatories and 1 dose of antibiotic. Possible discharge home as long as her symptoms are improved. Allergies No Known Drug Allergies Allergy (Verified 01/20/18 23:06) Unknown Home Medications: Acetaminophen [Tylenol] 2 tab PO Q6H PRN 01/21/18 Aripiprazole [Abilify] 10 mg PO BEDTIME 01/21/18 Ascorbic Acid [Vitamin C] 500 mg PO BID 01/21/18 Bupropion HCl [Wellbutrin Sr] 150 mg PO BID 01/21/18 Famotidine 20 mg PO BEDTIME 01/21/18 Furosemide [Lasix] 80 mg PO SEECOM 01/21/18 Gabapentin [Gralise] 300 mg PO BID 01/21/18 Insulin Detemir [Levemir] 25 unit SQ SEECOM 01/21/18 Insulin Lispro [Admelog] 100 unit SQ SEECOM 01/21/18 Lactulose [Enulose] 60 ml PO TID 01/21/18 Multivitamin [Multivitamins] 1 each PO DAILY 01/21/18 Neomycin 500mg 3 tab PO TID 01/21/18 Nitroglycerin [Nitrostat] 0.4 mg SL SEECOM PRN 01/21/18 Nystatin 100,000 unit TOP BID 01/21/18 Propranolol [Inderal] 20 mg PO SEECOM 01/21/18 Tramadol HCl [Ultram] 50 mg PO Q6HP PRN 01/21/18 - Past Medical/Surgical History Has patient received pneumonia vaccine in the past: Yes Diabetic: Yes -: Hepatitis C with Cirrhosis of liver -: CHF -: HTN -: Hypothyroidism -: GERD -: Peptic Ulcer -: UTI, Recurrent -: Chronic back pain -: Anxiety/Depression -: UTI, Recurrent -: Chronic back pain -: Anxiety/Depression -: Cardiac Cath -: -: Tonsillectomy Psychosocial/ Personal History: Lives by herself. Currently [facility] - Family History Mother Medical History: Heart disease, Other (see notes) Notes: Anxiety Father Medical History: Diabetes - Social History Smoking Status: Never smoker Alcohol use: No CD- Drugs: Yes Caffeine use: No Place of Residence: [facility] Review of Systems 10-point ROS is otherwise unremarkable Physical Examination - Vital Signs Temperature: 97.4 F Blood Pressure: 106/58 Pulse: 59 Respirations: 18 Pulse Ox (%): 99 - Physical Exam General: Alert, In no apparent distress, Oriented x3 HEENT: Atraumatic, PERRLA, Mucous membr. moist/pink, Other (Oral pharyngeal is erythematous), EOMI, Sclerae nonicteric Neck: Supple, 2+ carotid pulse no bruit, Without JVD or thyroid abnormality, LAD (Anterior cervical lymphadenopathy) Respiratory: Clear to auscultation bilaterally, Normal air movement Cardiovascular: Regular rate/rhythm, Normal S1 S2, No murmurs Gastrointestinal: Normal bowel sounds, Soft and benign, Non-distended, No tenderness Musculoskeletal: No clubbing, No swelling, No tenderness Integumentary: No rashes Neurological: Normal gait, Normal speech, Normal strength at 5/5 x4 extr, Normal tone, Sensation intact, Cranial nerves 3-12 intact, Normal affect Lymphatics: No axilla or inguinal lymphadenopathy - Studies Laboratory Data (last 24 hrs) 01/20/18 18:57: PT 14.0 H, INR 1.18 01/20/18 18:57: WBC 4.1 L, Hgb 12.8, Hct 36.7, Plt Count 82 L* 01/20/18 18:57: Sodium 133 L, Potassium 3.2 L, BUN 13, Creatinine 2.80 H, Glucose 132 H, Magnesium 2.5 H, Total Bilirubin 2.7 H, AST 116 H, ALT 33, Alkaline Phosphatase 443 H Assessment & Plan - Problems (Diagnosis) (1) Chest pain, rule out acute myocardial infarction Current Visit: Yes Status: Acute (2) Upper respiratory infection Current Visit: Yes Status: Acute (3) Acute laryngitis Current Visit: Yes Status: Acute (4) Hepatitis C Onset Date: 06/07/16 Current Visit: No Status: Chronic Qualifiers: (5) Liver cirrhosis Onset Date: 02/16/16 Current Visit: No Status: Chronic Qualifiers: (6) Thrombocytopenia Onset Date: 06/07/16 Current Visit: No Status: Chronic - Plan Plan: 1. Serial troponins and EKG 2. Cardiology consultation; if patient stays in the hospital greater than 24hrs will get Nephrology consultation as well 3. Echocardiogram and further recommendations per Cardiology 4. Anti-platelet therapy, beta-karen, statin, and O2 as needed 5. IV morphine for pain 6. DVT prophylaxis 7. Supportive care for laryngitis 8. Monitor labs closely while in the hospital. Discharge Plan: Home Plan to discharge in: 24 Hours - Advance Directives Does patient have a Living Will: No Does patient have a Durable POA for Healthcare: No - Code Status/Comfort Care Code Status Assessed: Yes Code Status: Full Code Critical Care: No Time Spent Managing PTS Care (In Minutes): 50
[2018-01-21] MEDS ORDERED: CEFTRIAXONE/SWI 1gm 1 GM/10 ML SYR IV SCH (08:00)
[2018-01-21] MEDS: TRAMADOL HCL 50 MG TAB PO PRN ×2 (08:25→14:06)
[2018-01-21] MEDS: METOPROLOL TAR 50 MG TAB PO SCH (08:26)
[2018-01-21] MEDS: LACTULOSE 20 GM/30 ML UCUP PO SCH ×2 (08:26→14:06)
[2018-01-21 08:27] VITALS: BP 80/58
[2018-01-21] MEDS ORDERED: ASCORBIC ACID 500 MG TABLET PO SCH (09:00)
[2018-01-21] MEDS ORDERED: BUPROPRION HCL S.R. 150MG TAB PO SCH (09:00)
[2018-01-21] MEDS ORDERED: ASPIRIN EC 81 MG TAB PO SCH (09:00)
[2018-01-21] MEDS ORDERED: MULTIVITAMIN TAB PO SCH (09:00)
[2018-01-21] MEDS ORDERED: NYSTATIN PWDR 100000 UNIT/GM TOP SCH (09:00)
[2018-01-21] MEDS ORDERED: NEOMYCIN 500 MG PO SCH (09:00)
[2018-01-21] MEDS ORDERED: GABAPENTIN 300 MG CAP PO SCH (09:00)
[2018-01-21] MEDS ORDERED: FUROSEMIDE 40 MG TABLET PO SCH (09:00)
--- NOTE | 2018-01-21 09:25 | EKG ---
Test Date: 2018-01-20 Test Time: 18:44:05 Assistant Program Manager: TERRELL MEASUREMENT RESULTS: Intervals: Rate: 103 [place]: 160 QRSD: 72 QT: 392 QTc: 513 [place]: P: 31 [place]: 160 QRS: -17 T: 52 INTERPRETIVE STATEMENTS: Sinus tachycardia Otherwise normal ECG Compared to ECG 12/29/2017 16:32:46 Sinus rhythm no longer present Prolonged QT interval no longer present Electronically Signed On 01-21-18 09:25:37 CDT by Cristiano Stevenson
[2018-01-21 10:32] VITALS: TEMP 97.1
--- NOTE | 2018-01-21 13:33 | P.SSS ---
Patient History Date of Service: 01/21/18 Reason for admission: Chest pain rule out acute coronary syndrome History of Present Illness: Patient is a 52-year-old female who came to the hospital with chest discomfort. Pain was mainly in the sternal region. Patient has been having this sensation of congestion. She denies having a cough but she has recently noticed that her voice is become more hoarse. She feels like she is losing her voice over the last few days. She appears to be having a laryngitis. She denies any diaphoresis, shortness of breath, lightheadedness. She denies fever, shakes, or chills. At this time will rule her out for acute coronary syndrome. Will also start her on anti-inflammatories and 1 dose of antibiotic. Possible discharge home as long as her symptoms are improved. Allergies No Known Drug Allergies Allergy (Verified 01/20/18 23:06) Unknown Home Medications: Acetaminophen [Tylenol] 2 tab PO Q6H PRN 01/21/18 Aripiprazole [Abilify] 10 mg PO BEDTIME 01/21/18 Ascorbic Acid [Vitamin C] 500 mg PO BID 01/21/18 Bupropion HCl [Wellbutrin Sr] 150 mg PO BID 01/21/18 Famotidine 20 mg PO BEDTIME 01/21/18 Furosemide [Lasix] 80 mg PO SEECOM 01/21/18 Gabapentin [Gralise] 300 mg PO BID 01/21/18 Insulin Detemir [Levemir] 25 unit SQ SEECOM 01/21/18 Insulin Lispro [Admelog] 100 unit SQ SEECOM 01/21/18 Lactulose [Enulose] 60 ml PO TID 01/21/18 Multivitamin [Multivitamins] 1 each PO DAILY 01/21/18 Neomycin 500mg 3 tab PO BID 01/21/18 Nitroglycerin [Nitrostat*] 0.4 mg SL SEECOM PRN 01/21/18 Nystatin 100,000 unit TOP BID 01/21/18 Propranolol [Inderal*] 20 mg PO SEECOM 01/21/18 Tramadol HCl [Ultram] 50 mg PO Q6HP PRN 01/21/18 - Past Medical/Surgical History Has patient received pneumonia vaccine in the past: Yes Diabetic: Yes -: Hepatitis C with Cirrhosis of liver -: CHF -: HTN -: Hypothyroidism -: GERD -: Peptic Ulcer -: UTI, Recurrent -: Chronic back pain -: Anxiety/Depression -: UTI, Recurrent -: Chronic back pain -: Anxiety/Depression -: Cardiac Cath -: -: Tonsillectomy Psychosocial/ Personal History: Lives by herself. Currently at correction - Family History Mother -: Heart disease, Other (see notes) Notes: Anxiety Father -: Diabetes - Social History Smoking Status: Never smoker Alcohol use: No CD- Drugs: Yes Caffeine use: No Place of Residence: Assisted Review of Systems 10-point ROS is otherwise unremarkable Physical Examination - Vital Signs Temperature: 97.1 F Blood Pressure: 80/58 Pulse: 62 Respirations: 16 Pulse Ox (%): 100 - Physical Exam General: Alert, In no apparent distress HEENT: Atraumatic, PERRLA, Mucous membr. moist/pink, EOMI, Sclerae nonicteric Neck: Supple, 2+ carotid pulse no bruit, No LAD, Without JVD or thyroid abnormality Respiratory: Clear to auscultation bilaterally, Normal air movement Cardiovascular: Regular rate/rhythm, Normal S1 S2 Gastrointestinal: Normal bowel sounds, No tenderness Musculoskeletal: No tenderness Integumentary: No rashes Neurological: Normal gait, Normal speech, Normal strength at 5/5 x4 extr, Normal tone, Normal affect Lymphatics: No axilla or inguinal lymphadenopathy - Studies Laboratory Data (last 24 hrs) 01/20/18 18:57: PT 14.0 H, INR 1.18 01/20/18 18:57: WBC 4.1 L, Hgb 12.8, Hct 36.7, Plt Count 82 L* 01/20/18 18:57: Sodium 133 L, Potassium 3.2 L, BUN 13, Creatinine 2.80 H, Glucose 132 H, Magnesium 2.5 H, Total Bilirubin 2.7 H, AST 116 H, ALT 33, Alkaline Phosphatase 443 H - Diagnosis (Problem(s)) (1) Acute laryngitis Current Visit: Yes Status: Resolved (2) Chronic renal disease Onset Date: 09/01/17 Current Visit: No Status: Chronic Qualifiers: Chronic kidney disease stage: stage 4 (severe) Qualified Code(s): N18.4 - Chronic kidney disease, stage 4 (severe) (3) Congestive heart failure with LV diastolic dysfunction, NYHA class 3 Onset Date: 06/07/16 Current Visit: No Status: Chronic (4) Depression with anxiety Onset Date: 06/07/16 Current Visit: No Status: Chronic (5) Diabetes mellitus Onset Date: 09/01/17 Current Visit: No Status: Chronic Qualifiers: Diabetes mellitus type: type 2 Diabetes mellitus skilled nursing insulin use: without ad terminal 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 operator use Diabetes mellitus complication status: without complication Qualified Code(s): E11.9 - Type 2 diabetes mellitus without complications (6) ESRD (end stage renal disease) on dialysis Onset Date: 10/25/17 Current Visit: No Status: Chronic (7) GERD (gastroesophageal reflux disease) Onset Date: 09/27/16 Current Visit: No Status: Chronic Qualifiers: Esophagitis presence: without esophagitis Qualified Code(s): K21.9 - Gastro -esophageal reflux disease without esophagitis (8) HTN (hypertension) Onset Date: 09/27/16 Current Visit: No Status: Chronic Qualifiers: Hypertension type: essential hypertension Qualified Code(s): I10 - Essential (primary) hypertension - Disposition Disposition: TRANSFER TO [facility] Condition: GOOD Diet: Regular Activity: Ad renny
[2018-01-21] MEDS ORDERED: INSULIN GLARGINE 100 UNITS/ML SQ SCH (17:00)
[2018-01-21] MEDS ORDERED: ENOXAPARIN 30 MG/0.3 ML SQ SCH (18:00)
[2018-01-21] MEDS ORDERED: FAMOTIDINE 20 MG TAB PO SCH (21:00)
[2018-01-21] MEDS ORDERED: ARIPiprazole 5 MG TAB PO SCH (21:00)
[2018-01-21] MEDS ORDERED: NEOMYCIN SULFATE 500 MG TAB PO SCH (21:00)
== END 2018-01-21 16:35 ==
LOC: ER 18:32 → ERHOLD 19:28 → 2ND 20:56
PROVIDERS: ADMIT Hospitalist; ATTEND Hospitalist
DX: J04.0 Acute laryngitis (principal); E03.9 Hypothyroidism, unspecified; K21.9 Gastro-esophageal reflux disease without esophagitis; F41.8 Other specified anxiety disorders; B19.20 Unspecified viral hepatitis C without hepatic coma; I13.2 Hypertensive heart and chronic kidney disease with heart failure and with stage 5 chronic kidney disease, or end stage renal disease; E11.22 Type 2 diabetes mellitus with diabetic chronic kidney disease; N18.6 End stage renal disease; I50.32 Chronic diastolic (congestive) heart failure
CPT/HCPCS: 36415; 71045; 80048; 80076; 83735; 83880; 84484 ×2; 85025; 85610; 93005; 99285; G0378 ×2; J0696; J1650; J2930

== ENCOUNTER 2018-02-01 13:40 | Emergency (ER) | payer OTHER ==
[2018-02-01] MEDS ORDERED: NA CHLORIDE 0.9% 1,000 ML ONE (14:18)
[2018-02-01 14:29] LABS: Absolute Lymphocytes (CBC) 0.6 K/uL (0.7-4.9); Absolute Monocytes 0.4 K/uL (0.1-1.3); Absolute Neutrophil 2.4 K/uL (1.8-8.0); Basophils % 1.1 % (0-1.3); Eosinophils % 2.6 % (0-4.4); Hematocrit 31.4 % (36.0-45.0); Lymphocytes % 17.7 % (15.3-44.8); MCH 33.7 pg (27.0-35.0); MCV 97.1 fL (80-100); MPV 9.9 fL (7.6-11.3); Monocytes % 10.6 % (3.3-12.3); RBC Red Blood Cell Count 3.24 M/uL (3.86-4.86)
--- NOTE | 2018-02-01 14:45 | RAD REPORT ---
EXAM DESCRIPTION: CT - CTHCSPWOC - 02/01/2018 2:32 pm CLINICAL HISTORY: Trauma, head and neck injury. fall yesterday COMPARISON: Head C Spine Mpr Wo Con dated 03/08/2016; CT HEAD CSPINE MPR WO CONTRAST dated 12/25/2013 TECHNIQUE: Axial 5 mm thick images of the head were obtained. Axial 2 mm thick images of the cervical spine were obtained with sagittal and coronal reconstruction images generated and reviewed. All CT scans are performed using dose optimization technique as appropriate and may include automated exposure control or mA/KV adjustment according to patient size. FINDINGS: CT HEAD WITHOUT CONTRAST: No acute hemorrhage, hydrocephalus or extra-axial collection is identified.No areas of brain edema or midline shift. Mild mucoperiosteal thickening is seen in the right maxillary antrum is well as the sphenoid sinus. T he paranasal sinuses and mastoids are otherwise clear.The calvarium is intact. CT CERVICAL SPINE WITHOUT CONTRAST: No fracture or subluxation.No prevertebral soft tissues swelling is identified. IMPRESSION: No acute intracranial or cervical spine findings. Mild paranasal sinus opacification as detailed.
[2018-02-01 14:54] LABS: Magnesium 3.4 mg/dL (1.8-2.4); Platelet Estimate DECR; Urine White Blood Cell Casts OK
[2018-02-01 14:55] LABS: Blood Morphology Comment NOT SEEN (NOT SEEN)
--- NOTE | 2018-02-01 15:12 | RAD REPORT ---
EXAM DESCRIPTION: RAD - Pelvis - 02/01/2018 3:04 pm CLINICAL HISTORY: right hip pain History of fall COMPARISON: Hip Right 2 View dated 02/01/2018 FINDINGS: AP pelvis and right hip, two views. No acute fracture or dislocation seen. No AVN pattern. Vascular calcifications seen. IMPRESSION: No acute fracture seen.
[2018-02-01] MEDS ORDERED: ACETAMINOPHEN 500 MG TAB ONE (15:53)
--- NOTE | 2018-02-01 16:27 | ER ---
Nurse's Notes [facility] Name: Ernestina Mackay Age: 52 yrs Sex: Female : 1965 Arrival Date: 02/01/2018 Time: 13:53 Bed 28 Private MD: Diagnosis: Contusion of unspecified part of head;Other slipping, tripping and stumbling and falls Presentation: 02/01 13:55 Presenting complaint: EMS states: PT reportedly turned with walker yesterday at 1400, ss became dizzy, lost balance and hit her head on the railing of the bed, landing on her buttocks. Pt was at dialysis, when staff called 911 because patient seemed more lethargic than usual. Pt c/p pain to the back of her head 12/02. Transition of care: Elizabeth garcia, resident at [facility]. Onset of symptoms was January 31, 2018. Risk Assessment: Do you want to hurt yourself or someone else? Patient reports no desire to harm self or others. Initial Sepsis Screen: Does the patient meet any 2 criteria? No. Patient's initial sepsis screen is negative. Does the patient have a suspected source of infection? No. Patient's initial sepsis screen is negative. Care prior to arrival: None. 13:55 Method Of Arrival: EMS: [facility] ss 13:55 Acuity: TOM 4 ss Historical: - Allergies: 14:02 NKDA; ss - Home Meds: 17:37 Abilify 1 mg/mL Oral soln 10 mL once daily at bedtime [Active]; acetaminophen 325 mg mg2 Oral tab 2 tabs every 6 hours for as needed for pain [Active]; ascorbic acid (vitamin C) 500 mg tab twice a day [Active]; Humalog sliding scale Sub-Q twice a day [Active]; lactulose 10 gram/15 mL (15 mL) Oral soln 30 mL 3 times per day [Active]; Levemir 100 unit/mL subcutaneous soln 25 Units SQ every morning for Type 2 Diabetes Mellitus [Active]; multivitamin with minerals Oral tab daily [Active]; neomycin 500 mg Oral tab 3 tabs 2 times per day [Active]; Nepro Carb Steady 0.08-1.80 gram-kcal/mL Oral liqd [Active]; nystatin 100,000 unit/gram Topical powd 2 times per day [Active]; Pepcid 20 mg Oral tab 1 tab once daily [Active]; propranolol 20 mg Oral tab 1 tab 3 times per day [Active]; Wellbutrin SR 150 mg Oral TbER 1 tab 2 times per day [Active]; - PMHx: 14:02 Anxiety; Cellulitis; CHF; Chronic pain; Cirrhosis; Depression; Diabetes - NIDDM; ss Hepatitis; Hypertension; insomnia; - Immunization history:: Adult Immunizations up to date. - Social history:: Smoking status: Patient/guardian denies using tobacco. - Ebola Screening: : Patient denies exposure to infectious person Patient denies travel to an Ebola-affected area in the 21 days before illness onset. Screenin:04 Abuse screen: Denies threats or abuse. Denies injuries from another. Nutritional mg2 screening: No deficits noted. Tuberculosis screening: No symptoms or risk factors identified. Fall Risk IV access (20 points). Assessment: 14:00 General: Appears in no apparent distress. comfortable, Behavior is calm, cooperative, ss Reports fatigue for after fall since yesterday. . Denies fever, feeling ill, chills. Pain: Complains of pain in occipital area Pain currently is 8 out of 10 on a pain scale. Quality of pain is described as aching, tender, Pain began 1400 yesterday Is continuous. Neuro: Level of Consciousness is awake, alert, obeys commands, Oriented to person, place, time, situation, Speech normal, but slow to respond. Facial symmetry appears normal, Pupils are PERRLA. Cardiovascular: Capillary refill < 3 seconds is brisk in bilateral fingers. Respiratory: Breath sounds are clear bilaterally. GI: Patient currently denies diarrhea, nausea, vomiting. EENT: Nares are clear Oral mucosa is moist. Throat is clear. Derm: Skin is intact, is healthy with good turgor, Skin is pink, warm \T\ dry. normal. Musculoskeletal: Circulation, motion, and sensation intact. Capillary refill < 3 seconds, is brisk, in bilateral fingers. Range of motion: intact in all extremities, Swelling absent. 15:07 Reassessment: Pt back from CT. ss 17:42 Reassessment: Patient appears in no apparent distress at this time. Patient and/or mg2 family updated on plan of care and expected duration. Pain level reassessed. Patient is alert, oriented x 3, equal unlabored respirations, skin warm/dry/pink. [facility] contacted and said there is no av ailable transportation to come and pick her up. charge nurse informed. 19:02 Reassessment: Patient appears in no apparent distress at this time. Patient and/or mg2 family updated on plan of care and expected duration. Pain level reassessed. Patient is alert, oriented x 3, equal unlabored respirations, skin warm/dry/pink. nurse from [facility] came and continuous pickling line pickler helper the patient.discharged. Vital Signs: 14:02 BP 97 / 56; Pulse 57; Resp 16; Temp 98.2(O); Pulse Ox 99% on R/A; Height 5 ft. 6 in. ss (167.64 cm); Pain 8/10; 15:11 BP 93 / 56; Pulse 59; Resp 18; Pulse Ox 100% ; mg2 16:30 BP 96 / 63; Pulse 58; Resp 18; Pulse Ox 100% on R/A; mg2 17:08 BP 91 / 56; Pulse 57; Resp 18; Pulse Ox 100% on R/A; mg2 Ariane Coma Score: 14:12 Eye Response: spontaneous(4). Verbal Response: oriented(5). Motor Response: obeys cp commands(6). Total: 15. ED Course: 13:53 Patient arrived in ED. ss 13:55 [facility] cp 13:55 Vik Gonzalez MD is Attending Physician. cp 13:59 Triage completed. ss 14:02 Arm band placed on right wrist. ss 14:05 Patient has correct armband on for positive identification. Bed in low position. Call light in reach. 14:20 Inserted saline lock: 22 gauge in left antecubital area, using aseptic technique. Blood kr2 collected. 14:[address] via stretcher. sj 14:32 CT Head C Spine In Process Unspecified. EDMS 14:32 CT completed. Patient tolerated procedure well. Patient moved to radiology Patient sj moved back from CT. 14:51 Macie Middleton, ESSIE is Primary Nurse. ss 15:04 X-ray completed. Patient tolerated procedure well. Patient moved back from radiology. mh1 15:04 XRAY Pelvis In Process Unspecified. EDMS 15:04 XRAY Hip RIGHT 2 view In Process Unspecified. EDMS 16:20 EKG done, by obstetrics tech. reviewed by Dionte BAILEY. sm3 16:26 Breanna Tyler MD is Referral Physician. cp 17:16 Breanna Tyler MD is Referral Physician. cp 19:03 No provider procedures requiring assistance completed. IV discontinued, intact, mg2 bleeding controlled, No redness/swelling at site. Pressure dressing applied. Administered Medications: 15:57 Drug: Tylenol 1000 mg Route: PO; mg2 16:29 Follow up: Response: No adverse reaction; Marked relief of symptoms mg2 16:39 Drug: NS 0.9% 250 ml Route: IV; Rate: bolus; Site: left antecubital; mg2 Outcome: 16:27 Discharge ordered by MD. cp 17:17 Discharge ordered by MD. cp 19:04 Discharged to half-way. Report called to [facility] Transfer form mg2 completed. 19:04 Condition: stable 19:04 Discharge instructions given to patient, half-way, Instructed on discharge instructions, follow up and referral plans. Demonstrated understanding of instructions, follow-up care. 19:05 Patient left the ED. mg2 Signatures: Dispatcher [employer] EDMS Estefany Acuña 1 Tayler Castillo Shelby, RN RN ss Dionte Castillo PA PA cp Kathia Sapp RN RN kr2 Suleiman Calderon, ESSIE RN mg2 Aster Raygoza sm3 Corrections: (The following items were deleted from the chart) 15:13 15:11 Pulse 59bpm; Resp 18bpm; Pulse Ox 100%; mg2 mg2
--- NOTE | 2018-02-01 16:27 | EDPHYS ---
Physician Documentation [facility] Name: Ernestina Mackay Age: 52 yrs Sex: Female : 1965 Arrival Date: 02/01/2018 Time: 13:53 Bed 28 Private MD: ED Physician Vik Gonzalez HPI: 02/01 14:12 This 52 yrs old Female presents to ER via EMS with complaints of Head Injury cp Without LOC-Adult. 14:12 The patient or guardian reports pain, tenderness. The complaints affect the scalp. cp Context of injury: resulted from a fall, from a standing position. Onset: The symptoms/episode began/occurred yesterday. 14:12 Associated signs and symptoms: Loss of consciousness: This patient did not experience cp any loss of consciousness. Pertinent positives: headache, Pertinent negatives: seizure, vomiting, generalized weakness. Patient reports she lost her balance and fell landing on her buttocks and striking back of head against rail on bed yesterday. Historical: - Allergies: 14:02 NKDA; ss - Home Meds: 17:37 Abilify 1 mg/mL Oral soln 10 mL once daily at bedtime [Active]; acetaminophen 325 mg mg2 Oral tab 2 tabs every 6 hours for as needed for pain [Active]; ascorbic acid (vitamin C) 500 mg tab twice a day [Active]; Humalog sliding scale Sub-Q twice a day [Active]; lactulose 10 gram/15 mL (15 mL) Oral soln 30 mL 3 times per day [Active]; Levemir 100 unit/mL subcutaneous soln 25 Units SQ every morning for Type 2 Diabetes Mellitus [Active]; multivitamin with minerals Oral tab daily [Active]; neomycin 500 mg Oral tab 3 tabs 2 times per day [Active]; Nepro Carb Steady 0.08-1.80 gram-kcal/mL Oral liqd [Active]; nystatin 100,000 unit/gram Topical powd 2 times per day [Active]; Pepcid 20 mg Oral tab 1 tab once daily [Active]; propranolol 20 mg Oral tab 1 tab 3 times per day [Active]; Wellbutrin SR 150 mg Oral TbER 1 tab 2 times per day [Active]; - PMHx: 14:02 Anxiety; Cellulitis; CHF; Chronic pain; Cirrhosis; Depression; Diabetes - NIDDM; ss Hepatitis; Hypertension; insomnia; - Immunization history:: Adult Immunizations up to date. - Social history:: Smoking status: Patient/guardian denies using tobacco. - Ebola Screening: : Patient denies exposure to infectious person Patient denies travel to an Ebola-affected area in the 21 days before illness onset. ROS: 14:15 Constitutional: Negative for body aches, chills, fever, poor PO intake. cp 14:15 Eyes: Negative for injury, pain, redness, and discharge. cp 14:15 ENT: Negative for drainage from ear(s), ear pain, sore throat, difficulty swallowing, difficulty handling secretions. 14:15 Cardiovascular: Negative for chest pain. 14:15 Respiratory: Negative for cough, shortness of breath, wheezing. 14:15 Abdomen/GI: Negative for abdominal pain, nausea, vomiting, and diarrhea. 14:15 Neuro: Positive for headache, Negative for altered mental status, weakness. 14:15 All other systems are negative. Exam: 14:22 Constitutional: The patient appears in no acute distress, alert, awake, cp non-diaphoretic, non-toxic, well developed, well nourished. 14:22 Head/face: Noted is tenderness, that is mild, of the left occipital area and right cp occipital area. 14:22 Eyes: Periorbital structures: appear normal, Pupils: equal, round, and reactive to light and accomodation, Extraocular movements: intact throughout, Conjunctiva: normal, no exudate, no injection, Lids and lashes: appear normal, bilaterally. 14:22 ENT: External ear(s): are unremarkable, Ear canal(s): are normal, clear, TM's: bulging, is not appreciated, bilaterally, dullness, bilaterally, erythema, is not appreciated, bilaterally, Nose: is normal, Mouth: Lips: moist, Oral mucosa: moist, Posterior pharynx: is normal, airway is patent. 14:22 Neck: C-spine: vertebral tenderness, that is mild, crepitus, is not appreciated. 14:22 Chest/axilla: Inspection: normal, Palpation: is normal, no crepitus, no tenderness. 14:22 Cardiovascular: Rate: bradycardic, Rhythm: regular. 14:22 Respiratory: the patient does not display signs of respiratory distress, Respirations: normal, no use of accessory muscles, no retractions, no splinting, no tachypnea, Breath sounds: are clear throughout, no decreased breath sounds, no stridor, no wheezing. 14:22 Abdomen/GI: Inspection: abdomen appears normal, Palpation: abdomen is soft and non-tender, in all quadrants, rebound tenderness, is not appreciated, voluntary guarding, is not appreciated, involuntary guarding, is not appreciated. 14:22 Back: pain, is absent, ROM is normal. 14:22 Musculoskeletal/extremity: Extremities: grossly normal except: noted in the right hip: pain, tenderness, There is no evidence of decreased ROM, deformity. 14:22 Skin: cellulitis, is not appreciated, no rash present. 14:22 Neuro: Orientation: to person, place \T\ time. Mentation: is normal, Motor: moves all fours. 16:25 ECG was reviewed by the Attending Physician. cp Vital Signs: 14:02 BP 97 / 56; Pulse 57; Resp 16; Temp 98.2(O); Pulse Ox 99% on R/A; Height 5 ft. 6 in. ss (167.64 cm); Pain 8/10; 15:11 BP 93 / 56; Pulse 59; Resp 18; Pulse Ox 100% ; mg2 16:30 BP 96 / 63; Pulse 58; Resp 18; Pulse Ox 100% on R/A; mg2 17:08 BP 91 / 56; Pulse 57; Resp 18; Pulse Ox 100% on R/A; mg2 Ariane Coma Score: 14:12 Eye Response: spontaneous(4). Verbal Response: oriented(5). Motor Response: obeys cp commands(6). Total: 15. MDM: 13:55 Patient medically screened. cp 16:23 Physician consultation: Breanna Tyler MD was called at 16:23, was contacted at 16:23, cp regarding consult, patient's condition, states patient can be discharged to [facility] and can be dialyzed tomorrow in clinic. 17:16 Data reviewed: vital signs, nurses notes, lab test result(s), EKG, radiologic studies, cp VSS. Discussed blood pressure with DR Betancourt who reports patient base line blood pressure is 90's systolic, and as a result, I will discharge patient. 17:16 Test interpretation: by ED physician or midlevel provider: ECG. cp 02/01 14:07 Order name: BMP; Complete Time: 15:08 cp 02/01 16:21 Interpretation: Normal except: NA 123; CL 88; GLUC 115; BUN 48; GFR 7; CA 8.2. 02/01 14:07 Order name: CBC with Diff; Complete Time: 15:08 cp 02/01 16:22 Interpretation: Normal except: WBC 3.5; RBC 3.24; HGB 10.9; HCT 31.4; RDW 15.5; MPV cp 9.9; LYMA 0.6. 02/01 14:07 Order name: CT Head C Spine; Complete Time: 15:08 cp 02/01 14:07 Order name: XRAY Pelvis; Complete Time: 16:01 cp 02/01 16:01 Interpretation: Report reviewed. 02/01 14:07 Order name: Magnesium; Complete Time: 15:08 cp 02/01 15:09 Interpretation: MG 3.4; Reviewed. 02/01 14:40 Order name: CBC Smear Scan; Complete Time: 15:08 EDMS 02/01 14:07 Order name: XRAY Hip RIGHT 2 view cp 02/01 16:10 Order name: EKG; Complete Time: 16:11 cp 02/01 16:10 Order name: EKG - Nurse/Tech; Complete Time: 16:18 cp EC:25 Rate is 56 beats/min. Rhythm is regular. OK interval is prolonged at 208 msec. QRS cp interval is normal. QT interval is normal. Interpreted by me. Reviewed by me. Administered Medications: 15:57 Drug: Tylenol 1000 mg Route: PO; mg2 16:29 Follow up: Response: No adverse reaction; Marked relief of symptoms mg2 16:39 Drug: NS 0.9% 250 ml Route: IV; Rate: bolus; Site: left antecubital; mg2 Disposition: 17:30 Chart complete. cp 17:53 Co-signature as Attending Physician, Vik Gonzalez MD. Disposition: 02/01/18 17:17 Discharged to Home. Impression: Contusion of unspecified part of head, Other slipping, tripping and stumbling and falls. - Condition is Stable. - Discharge Instructions: Head Injury, Adult. - Medication Reconciliation Form, Thank You Letter, Antibiotic Education, Prescription Opioid Use form. - Follow up: Breanna Tyler MD; When: Tomorrow; Reason: for dialysis. - Problem is new. - Symptoms have improved. Signatures: Dispatcher [employer] EDMS Macie Middleton RN RN ss Dionte Castillo PA PA cp Vik Gonzalez MD MD Suleiman Calderon RN RN mg2 Corrections: (The following items were deleted from the chart) 16:21 15:09 Normal except: NA 123; CL 88; GLUC 115; BUN 48; GFR 7. cp cp 16:22 15:09 Normal except: WBC 3.5; RBC 3.24; HGB 10.9; HCT 31.4; RDW 15.5; MPV 9.9. cp cp 16:34 16:27 02/01/2018 16:27 Discharged to Home. Impression: Other slipping, tripping and cp stumbling and falls; Contusion of unspecified part of head. Condition is Stable. Forms are Medication Reconciliation Form, Thank You Letter, Antibiotic Education, Prescription Opioid Use. Follow up: Breanna Tyler; When: Tomorrow; Reason: dialysis. Problem is new. Symptoms have improved. cp 19:05 17:17 02/01/2018 17:17 Discharged to Home. Impression: Contusion of unspecified part of mg2 head; Other slipping, tripping and stumbling and falls. Condition is Stable. Forms are Medication Reconciliation Form, Thank You Letter, Antibiotic Education, Prescription Opioid Use. Follow up: Breanna Tyler; When: Tomorrow; Reason: for dialysis. Problem is new. Symptoms have improved. cp
[2018-02-01] MEDS ORDERED: NA CHLORIDE 0.9% 250 ML ONE (16:43)
--- NOTE | 2018-02-01 17:36 | EKG ---
Test Date: 2018-02-01 Test Time: 16:18:19 Trimmer Loader: QUENTIN MEASUREMENT RESULTS: Intervals: Rate: 56 HI: 208 QRSD: 82 QT: 492 QTc: 474 [place]: P: 87 HI: 208 QRS: 3 T: 50 INTERPRETIVE STATEMENTS: Sinus bradycardia Low voltage QRS Abnormal ECG Compared to ECG 01/20/2018 18:44:05 Low QRS voltage now present Sinus tachycardia no longer present Electronically Signed On 02-01-18 17:35:52 CDT by Cristiano Stevenson
[2018-02-01 19:09] VITALS: TEMP 98.2
[2018-02-01 19:10] VITALS: O2SAT 100
[2018-02-01 19:13] VITALS: BP 91/56
--- NOTE | 2018-02-02 09:40 | RAD REPORT ---
EXAM DESCRIPTION: RAD - Hip Right 2 View - 02/01/2018 3:04 pm CLINICAL HISTORY: Right hip pain History of fall COMPARISON: Hip Right 2 View dated 02/01/2018 FINDINGS: AP pelvis and right hip, two views. No acute fracture or dislocation seen. No AVN pattern. Vascular calcifications seen. IMPRESSION: No acute fracture seen.
== END 2018-02-01 19:05 | disposition home or self-care (01) ==
LOC: ER 13:40
DX: S00.93XA Contusion of unspecified part of head, initial encounter (principal); W01.190A Fall on same level from slipping, tripping and stumbling with subsequent striking against furniture, initial encounter; Y93.9 Activity, unspecified; Y92.003 Bedroom of unspecified non-institutional (private) residence as the place of occurrence of the external cause; Z79.4 Long term (current) use of insulin; I10 Essential (primary) hypertension; E11.9 Type 2 diabetes mellitus without complications; F32.9 Major depressive disorder, single episode, unspecified; I50.9 Heart failure, unspecified
CPT/HCPCS: 36415; 70450; 72125; 72170; 73502; 80048; 83735; 85025; 93005; 96374; 99284; J7030

== ENCOUNTER 2018-02-05 18:24 | Inpatient (IN) | payer OTHER ==
[2018-02-05 19:51] LABS: Absolute Lymphocytes (CBC) 0.7 K/uL (0.7-4.9); Absolute Monocytes 0.5 K/uL (0.1-1.3); Absolute Neutrophil 1.9 K/uL (1.8-8.0); Basophils % 1.1 % (0-1.3); Eosinophils % 2.7 % (0-4.4); Hematocrit 32.9 % (36.0-45.0); Lymphocytes % 21.8 % (15.3-44.8); MCH 33.9 pg (27.0-35.0); MCV 98.2 fL (80-100); MPV 9.4 fL (7.6-11.3); Monocytes % 15.5 % (3.3-12.3); Protime INR 1.12; RBC Red Blood Cell Count 3.35 M/uL (3.86-4.86)
--- NOTE | 2018-02-05 20:01 | RAD REPORT ---
EXAM DESCRIPTION: CT - Head Brain Wo Cont - 02/05/2018 7:48 pm CLINICAL HISTORY: MENTAL STATUS CHANGE Drowsiness COMPARISON: Head Brain Wo Cont dated 12/29/2017; Head Brain Wo Cont dated 11/23/2017; Brain Wo Cont date d 12/29/2017 TECHNIQUE: All CT scans are performed using dose optimization technique as appropriate and may inclu de automated exposure control or mA/KV adjustment according to patient size. FINDINGS: No intracranial hemorrhage, hydrocephalus or extra-axial fluid collection.No areas of brai n edema or evidence of midline shift. Moderate mucosal thickening of the sphenoid sinuses noted. The paranasal sinuses and mastoids are oth erwise clear. The calvarium is intact. IMPRESSION: No acute intracranial abnormality.
[2018-02-05 20:19] LABS: ALT/SGPT 38 U/L (12-78); AST/SGOT 93 U/L (15-37); Albumin 2.6 g/dL (3.4-5.0); Alkaline Phosphatase 337 U/L (45-117); BUN Blood Urea Nitrogen 53 mg/dL (7-18); Bicarbonate 22 mmol/L (21-32); Bilirubin Direct 0.9 mg/dL (0-0.2); Bilirubin Total 1.4 mg/dL (0.2-1.0); Glucose Level 115 mg/dL (74-106); Magnesium 3.4 mg/dL (1.8-2.4); Potassium 4.5 mmol/L (3.5-5.1); Protein, Total 7.1 g/dL (6.4-8.2); Sodium Level 123 mmol/L (136-145); Troponin (Emerg Dept Use Only) < 0.02 ng/mL (0.0-0.045)
--- NOTE | 2018-02-05 20:21 | RAD REPORT ---
EXAM DESCRIPTION: RAD - Chest Single View - 02/05/2018 8:11 pm CLINICAL HISTORY: altered mental status change Chest pain. COMPARISON: Chest Single View dated 01/20/2018; Chest Single View dated 12/29/2017; Chest Single View d ated 11/25/2017; Chest Single View dated 11/24/2017 FINDINGS: Portable technique limits examination quality. The lungs are grossly clear. The heart is normal in size. No displaced fractures.Right-sided venous c atheter tip in the SVC. IMPRESSION: No acute intrathoracic process suspected.
[2018-02-05 21:03] LABS: Urine Bacteria LOADED /HPF (<20); Urine Culture Reflex Order REFLEXED
[2018-02-05 21:20] LABS: Anisocytosis 1+; Blood Morphology Comment NOTED (NOT SEEN); Platelet Estimate DECR
[2018-02-05] MEDS ORDERED: NA CHLORIDE 0.9% 250 ML ONE (21:37)
[2018-02-05] MEDS ORDERED: CEFTRIAXONE/SWI 1gm 1 GM/10 ML SYR ONE (21:37)
[2018-02-05] MEDS ORDERED: LACTULOSE 20 GM/30 ML UCUP ONE (22:00)
[2018-02-05 22:08] LABS: Urine Blood 1+ (NEG); Urine Glucose NEGATIVE (NEG); Urine Protein 1+ (NEG); Urine pH 5.5 (5.0-7.0)
--- NOTE | 2018-02-05 22:08 | EDPHYS ---
Physician Documentation [facility] Name: Ernestina Mackay Age: 52 yrs Sex: Female : 1965 Arrival Date: 02/05/2018 Time: 18:23 Bed 26 Private MD: ED Physician Vik Gonzalez HPI: 02/05 20:00 This 52 yrs old Female presents to ER via EMS with complaints of Altered pm1 mental status. 20:00 The patient presents with decreased mental status. Onset: The symptoms/episode pm1 began/occurred this morning. Possible causes: unknown. 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 Patient at [facility]. Patient is currently not talking. History obtained from EMS. Patient with onset of decreased mental status since this AM. 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 LMP N/A - Post-menopause mg2 Historical: - Allergies: 18:33 NKDA; mg2 - Home Meds: 18:33 Abilify 1 mg/mL Oral soln 10 mL once daily at bedtime [Active]; acetaminophen 325 mg mg2 Oral tab 2 tabs every 6 hours for as needed for pain [Active]; ascorbic acid (vitamin C) 500 mg tab twice a day [Active]; Humalog sliding scale Sub-Q twice a day [Active]; lactulose 10 gram/15 mL (15 mL) Oral soln 30 mL 3 times per day [Active]; Levemir 100 unit/mL subcutaneous soln 25 Units SQ every morning for Type 2 Diabetes Mellitus [Active]; multivitamin with minerals Oral tab daily [Active]; neomycin 500 mg Oral tab 3 tabs 2 times per day [Active]; Nepro Carb Steady 0.08-1.80 gram-kcal/mL Oral liqd [Active]; nystatin 100,000 unit/gram Topical powd 2 times per day [Active]; Pepcid 20 mg Oral tab 1 tab once daily [Active]; propranolol 20 mg Oral tab 1 tab 3 times per day [Active]; Wellbutrin SR 150 mg Oral TbER 1 tab 2 times per day [Active]; - PMHx: 18:33 Anxiety; Cellulitis; CHF; Chronic pain; Depression; Cirrhosis; Diabetes - NIDDM; mg2 Hepatitis; Hypertension; insomnia; - Immunization history:: Adult Immunizations up to date. - Social history:: Smoking status: unknown. - Ebola Screening: : No symptoms or risks identified at this time. ROS: 20:00 Constitutional: Negative for fever, chills, and weight loss, Eyes: Negative for injury, pm1 pain, redness, and discharge, ENT: Negative for injury, pain, and discharge, Neck: Negative for injury, pain, and swelling, Cardiovascular: Negative for chest pain, palpitations, and edema, Respiratory: Negative for shortness of breath, cough, wheezing, and pleuritic chest pain, Abdomen/GI: Negative for abdominal pain, nausea, vomiting, diarrhea, and constipation, Back: Negative for injury and pain, : Negative for injury, bleeding, discharge, and swelling, MS/Extremity: Negative for injury and deformity, Skin: Negative for injury, rash, and discoloration. 20:00 Neuro: Positive for altered mental status. 20:00 Unable to obtain ROS due to altered mental status. Exam: 20:00 Head/Face: Normocephalic, atraumatic. Eyes: Pupils equal round and reactive to light, pm1 extra-ocular motions intact. Lids and lashes normal. Conjunctiva and sclera are non-icteric and not injected. Cornea within normal limits. Periorbital areas with no swelling, redness, or edema. ENT: Nares patent. No nasal discharge, no septal abnormalities noted. Tympanic membranes are normal and external auditory canals are clear. Oropharynx with no redness, swelling, or masses, exudates, or evidence of obstruction, uvula midline. Mucous membranes moist. Neck: Trachea midline, no thyromegaly or masses palpated, and no cervical lymphadenopathy. Supple, full range of motion without nuchal rigidity, or vertebral point tenderness. No Meningismus. Chest/axilla: Normal chest wall appearance and motion. Nontender with no deformity. No lesions are appreciated. 20:00 Respiratory: Lungs have equal breath sounds bilaterally, clear to auscultation and percussion. No rales, rhonchi or wheezes noted. No increased work of breathing, no retractions or nasal flaring. Abdomen/GI: Soft, non-tender, with normal bowel sounds. No distension or tympany. No guarding or rebound. No evidence of tenderness throughout. Back: No spinal tenderness. No costovertebral tenderness. Full range of motion. Skin: Warm, dry with normal turgor. Normal color with no rashes, no lesions, and no evidence of cellulitis. MS/ Extremity: Pulses equal, no cyanosis. 20:00 Constitutional: The patient appears in no acute distress, non-toxic, well developed, well hydrated, well groomed, well nourished. 20:00 Cardiovascular: Rate: normal, Rhythm: regular, Pulses: no pulse deficits are appreciated, Edema: is not appreciated. 20:00 Neuro: Orientation: unable to test, Mentation: responsive to pain. Vital Signs: 18:33 BP 96 / 63; Pulse 61; Resp 18; Temp 98; Pulse Ox 99% on R/A; mg2 20:36 BP 94 / 60; Pulse 58; Resp 18; Pulse Ox 100% on R/A; mg2 21:36 BP 99 / 68; Pulse 62; Resp 18; Pulse Ox 100% on R/A; mg2 23:33 BP 93 / 66; Pulse 60; Resp 18; Pulse Ox 100% on R/A; mg2 02/06 01:09 BP 95 / 58; Pulse 60; Resp 18; Pulse Ox 100% on R/A; mg2 MDM: 02/05 19:11 Patient medically screened. pm1 22:05 Data reviewed: vital signs. Data interpreted: Pulse oximetry: on room air is 100 %. pm1 Interpretation: normal. 22:59 Physician consultation: Rosario Thakur MD was called at 22:59, was contacted at 22:59, pm1 regarding admission, patient's condition, and will see patient. 02/05 19:26 Order name: Basic Metabolic Panel; Complete Time: 20:31 pm1 02/05 19:26 Order name: CBC with Diff; Complete Time: 21:21 pm1 02/05 19:26 Order name: LFT's; Complete Time: 20:31 pm1 02/05 19:26 Order name: Magnesium; Complete Time: 20:31 pm1 02/05 19:26 Order name: PT-INR; Complete Time: 20:31 pm1 02/05 19:26 Order name: Troponin (emerg Dept Use Only); Complete Time: 20:31 pm1 02/05 19:26 Order name: XRAY Chest (1 view); Complete Time: 20:31 pm1 02/05 19:26 Order name: AMMONIA; Complete Time: 20:31 pm1 02/05 19:26 Order name: Urine Microscopic Only; Complete Time: 21:21 pm1 02/05 19:26 Order name: Blood Culture Adult (2) pm1 02/05 19:26 Order name: Urine Culture pm1 02/05 20:43 Order name: Urine Dipstick--Ancillary (enter results); Complete Time: 22:09 02/05 20:43 Order name: Urine --Ancillary (enter results); Complete Time: 22:09 02/05 21:20 Order name: Manual Differential; Complete Time: 21:21 EDMS 02/05 19:26 Order name: EKG; Complete Time: 19:27 pm1 02/05 19:26 Order name: Cardiac monitoring; Complete Time: 19:27 pm1 02/05 19:26 Order name: EKG - Nurse/Tech; Complete Time: 20:36 pm1 02/05 19:26 Order name: IV Saline Lock; Complete Time: 19:27 pm1 02/05 19:26 Order name: Labs collected and sent; Complete Time: 19:28 pm1 02/05 19:26 Order name: O2 Per Protocol; Complete Time: 19:28 pm1 02/05 19:26 Order name: O2 Sat Monitoring; Complete Time: 19:28 pm1 02/05 19:26 Order name: CT Head Brain wo Cont; Complete Time: 20:31 pm1 02/05 19:26 Order name: Urine Dipstick-Ancillary (obtain specimen); Complete Time: 20:35 pm1 Administered Medications: 21:33 Drug: NS 0.9% 250 ml Route: IV; Rate: calculated rate; Site: left forearm; mg2 23:39 Follow up: Response: No adverse reaction; IV Status: Completed infusion mg2 21:33 Drug: Rocephin 1 grams Route: IV; Rate: calculated rate; Site: left forearm; mg2 23:38 Follow up: Response: No adverse reaction; IV Status: Completed infusion mg2 23:13 Drug: Lactulose 200 grams Route: LA; mg2 02/06 01:11 Follow up: Response: No adverse reaction mg2 Disposition: 02/05/18 22:08 Hospitalization ordered by Rosario Thakur for Inpatient Admission. Preliminary diagnosis are Altered mental status, unspecified, Urinary tract infection, site not specified, Hepatitic Encephalopathy. - Bed requested for Telemetry/MedSurg (Inpatient). - Status is Inpatient Admission. mg2 - Condition is Stable. - Problem is new. - Symptoms have improved. UTI on Admission? Yes Addendum: 02/07/2018 04:12 Co-signature as Attending Physician, Vik Gonzalez MD. g s Signatures: Dispatcher [employer] EDMS Sisi Goodwin RN RN cg Humble Martinez, FIELD UNDERWRITER FIELD UNDERWRITER pm1 Vik Gonzalez MD MD Suleiman Calderon RN RN mg2 Corrections: (The following items were deleted from the chart) 02/05 23:36 22:08 Hospitalization Ordered by Rosario Thakur MD for Inpatient Admission. Preliminary cg diagnosis is Altered mental status, unspecified; Urinary tract infection, site not specified; Hepatitic Encephalopathy. Bed requested for Telemetry/MedSurg (Inpatient). Status is Inpatient Admission. Condition is Stable. Problem is new. Symptoms have improved. UTI on Admission? Yes. pm1 02/06 02:18 02/05 23:36 02/05/2018 22:08 Hospitalization Ordered by Rosario Thakur MD for Inpatient mg2 Admission. Preliminary diagnosis is Altered mental status, unspecified; Urinary tract infection, site not specified; Hepatitic Encephalopathy. Bed requested for Telemetry/MedSurg (Inpatient). Status is Inpatient Admission. Condition is Stable. Problem is new. Symptoms have improved. UTI on Admission? Yes. cg
--- NOTE | 2018-02-05 22:08 | ER ---
Nurse's Notes [facility] Name: Ernestina Mackay Age: 52 yrs Sex: Female : 1965 Arrival Date: 02/05/2018 Time: 18:23 Bed 26 Private MD: Diagnosis: Altered mental status, unspecified;Urinary tract infection, site not specified;Hepatitic Encephalopathy Presentation: 02/05 18:24 Presenting complaint: EMS states: [facility] reports that pt has had increased mg2 confusion, dizziness and weakness. Dialysis pt, port in upper right chest, BGL 151. Transition of care: patient was received from another setting of care (long-term care facility), [facility]. Onset of symptoms was February 05, 2018. Risk Assessment: Do you want to hurt yourself or someone else? Patient reports no desire to harm self or others. Initial Sepsis Screen: Does the patient meet any 2 criteria? No. Patient's initial sepsis screen is negative. Does the patient have a suspected source of infection? No. Patient's initial sepsis screen is negative. Care prior to arrival: None. 18:24 Method Of Arrival: EMS: [facility] mg2 18:24 Acuity: TOM 3 mg2 Triage Assessment: 18:33 General: Appears comfortable, well developed, well nourished, Behavior is calm, mg2 cooperative, appropriate for age. Pain: Denies pain. EENT: No signs and/or symptoms were reported regarding the EENT system. Neuro: Level of Consciousness is awake, alert, obeys commands, Oriented to person, place, time, situation, Appropriate for age. Neuro: Reports dizziness, weakness. Cardiovascular: Patient's skin is warm and dry. Respiratory: Airway is patent Respiratory effort is even, unlabored, Respiratory pattern is regular, symmetrical. GI: No signs and/or symptoms were reported involving the gastrointestinal system. : No signs and/or symptoms were reported regarding the genitourinary system. Derm: No signs and/or symptoms reported regarding the dermatologic system. Musculoskeletal: No signs and/or symptoms reported regarding the musculoskeletal system. 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 LMP N/A - Post-menopause mg2 Historical: - Allergies: 18:33 NKDA; mg2 - Home Meds: 18:33 Abilify 1 mg/mL Oral soln 10 mL once daily at bedtime [Active]; acetaminophen 325 mg mg2 Oral tab 2 tabs every 6 hours for as needed for pain [Active]; ascorbic acid (vitamin C) 500 mg tab twice a day [Active]; Humalog sliding scale Sub-Q twice a day [Active]; lactulose 10 gram/15 mL (15 mL) Oral soln 30 mL 3 times per day [Active]; Levemir 100 unit/mL subcutaneous soln 25 Units SQ every morning for Type 2 Diabetes Mellitus [Active]; multivitamin with minerals Oral tab daily [Active]; neomycin 500 mg Oral tab 3 tabs 2 times per day [Active]; Nepro Carb Steady 0.08-1.80 gram-kcal/mL Oral liqd [Active]; nystatin 100,000 unit/gram Topical powd 2 times per day [Active]; Pepcid 20 mg Oral tab 1 tab once daily [Active]; propranolol 20 mg Oral tab 1 tab 3 times per day [Active]; Wellbutrin SR 150 mg Oral TbER 1 tab 2 times per day [Active]; - PMHx: 18:33 Anxiety; Cellulitis; CHF; Chronic pain; Depression; Cirrhosis; Diabetes - NIDDM; mg2 Hepatitis; Hypertension; insomnia; - Immunization history:: Adult Immunizations up to date. - Social history:: Smoking status: unknown. - Ebola Screening: : No symptoms or risks identified at this time. Screenin:36 Abuse screen: Denies threats or abuse. Denies injuries from another. Tuberculosis mg2 screening: No symptoms or risk factors identified. Fall Risk Secondary diagnosis (15 points) dementia, impaired mobility. 21:35 Nutritional screening: No deficits noted. mg2 Assessment: 18:36 Reassessment: No changes from previously documented assessment. mg2 21:36 Reassessment: Patient appears in no apparent distress at this time. No changes from mg2 previously documented assessment. 23:36 Neuro: Level of Consciousness is awake, lethargic, Oriented to not conversant, reactive mg2 to touch. 02/06 01:04 General: Appears in no apparent distress. ill, Behavior is flat, quiet. Pain: Unable to mg2 use pain scale. Patient appears quiet. Cardiovascular: Capillary refill < 3 seconds Patient's skin is warm and dry. Respiratory: No deficits noted. GI: No deficits noted. : Urine is clear. EENT: No deficits noted. Derm: Skin is intact, is healthy with good turgor, Skin is pink, warm \T\ dry. normal. Musculoskeletal: Circulation, motion, and sensation intact. Capillary refill < 3 seconds. 01:28 Reassessment: patient has been assigned a room in the floor but no admit orders yet mg2 from the hospitalist. Vital Signs: 02/05 18:33 BP 96 / 63; Pulse 61; Resp 18; Temp 98; Pulse Ox 99% on R/A; mg2 20:36 BP 94 / 60; Pulse 58; Resp 18; Pulse Ox 100% on R/A; mg2 21:36 BP 99 / 68; Pulse 62; Resp 18; Pulse Ox 100% on R/A; mg2 23:33 BP 93 / 66; Pulse 60; Resp 18; Pulse Ox 100% on R/A; mg2 02/06 01:09 BP 95 / 58; Pulse 60; Resp 18; Pulse Ox 100% on R/A; mg2 ED Course: 02/05 18:23 Patient arrived in ED. mg2 18:24 Suleiman Calderon, RN is Primary Nurse. mg2 18:26 Triage completed. mg2 18:33 Arm band placed on right wrist. mg2 18:36 Patient has correct armband on for positive identification. mg2 18:36 No provider procedures requiring assistance completed. mg2 19:02 Humble Martinez, SAMANTA is PHCP. pm1 19:02 Vik Gonzalez MD is Attending Physician. pm1 19:07 Inserted saline lock: 20 gauge in left forearm, using aseptic technique. Blood mg2 collected. 19:48 CT Head Brain wo Cont In Process Unspecified. EDMS 19:48 CT completed. Patient moved to CT via stretcher. Patient moved back from CT. cw1 20:01 Notified Nurse Practitioner and/or Physician [employer] of a critical lab result(s), plt fc of 50. 20:07 X-ray completed. Portable x-ray completed in exam room. Patient tolerated procedure la2 well. 20:11 XRAY Chest (1 view) In Process Unspecified. EDMS 22:06 Rosario Thakur MD is Hospitalizing Provider. pm1 02/06 01:09 Door closed. Warm blanket given. Cleaned of incontinence. Linen changed. mg2 02:17 Patient admitted, IV remains in place. mg2 Administered Medications: 02/05 21:33 Drug: NS 0.9% 250 ml Route: IV; Rate: calculated rate; Site: left forearm; mg2 23:39 Follow up: Response: No adverse reaction; IV Status: Completed infusion mg2 21:33 Drug: Rocephin 1 grams Route: IV; Rate: calculated rate; Site: left forearm; mg2 23:38 Follow up: Response: No adverse reaction; IV Status: Completed infusion mg2 23:13 Drug: Lactulose 200 grams Route: KS; mg2 02/06 01:11 Follow up: Response: No adverse reaction mg2 Outcome: 02/05 22:08 Decision to Hospitalize by Provider. pm1 02/06 02:17 Admitted to Med/surg accompanied by nurse, accompanied by tech, via stretcher, room mg2 205, with chart, Report called to RN Ekaterina 02:18 Condition: stable mg2 02:18 Instructed on the need for admit, Demonstrated understanding of instructions. 02:18 Patient left the ED. mg2 Signatures: Dispatcher [employer] EDMS Richa Harry RN RN Jennifer Schroeder 1 Humble Martinez, REINFORCING METAL WORKER REINFORCING METAL WORKER pm1 Linnette Rangel ia2 Suleiman Calderon RN RN mg2 Corrections: (The following items were deleted from the chart) 02/05 21:36 21:36 Reassessment: Patient appears in no apparent distress at this time. Patient mg2 and/or family updated on plan of care and expected duration. Pain level reassessed. Patient is alert, oriented x 3, equal unlabored respirations, skin warm/dry/pink. mg2
[2018-02-05] MEDS ORDERED: NA CHLORIDE 0.9% 1,000 ML ONE (22:34)
[2018-02-06] MEDS ORDERED: MAGNESIUM HYDROXIDE 8% 30 ML PO PRN (01:44)
[2018-02-06] MEDS ORDERED: ONDANSETRON 4 MG/2 ML VIAL IV PRN (01:44)
[2018-02-06] MEDS ORDERED: NA CHLORIDE 0.9% 1,000 ML IV SCH (02:00)
[2018-02-06 05:19] LABS: Protime INR 1.16
[2018-02-06 05:40] LABS: Magnesium 3.4 mg/dL (1.8-2.4); NT PRO-BNP 966 pg/mL (<125); Phosphorus 6.4 mg/dL (2.5-4.9); Troponin I < 0.02 ng/mL (0.0-0.045)
[2018-02-06] MEDS ORDERED: D50W 25 GM/50 ML SYRINGE IV ONE (05:56)
--- NOTE | 2018-02-06 07:26 | P.HP ---
Certification for Inpatient Patient admitted to: Inpatient With expected LOS: >2 Midnights Patient will require the following post-hospital care: None Practitioner: I am a practitioner with admitting privileges, knowledge of patient current condition, hospital course, and medical plan of care. Services: Services provided to patient in accordance with Admission requirements found in Title 42 Section 412.3 of the Code of Federal Regulations Patient History Date of Service: 02/06/18 Reason for admission: AMS/Hepatic encephalopathy History of Present Illness: Patient is a 52-year-old female who came into the hospital unresponsive. Patient lives at a group home. She lives at [facility]. Patient has had a longstanding history of cirrhosis. Patient had hepatic encephalopathy on numerous occasions, and she has been admitted to our hospital for treatment. Her ammonia level on this admission is greater than 200. She was given lactulose per rectum in the emergency room. Will reassess her mentation over the next 24 hr. Resume her liver medications. If she is not able to take her lactulose orally then will place a NG tube. Patient will be admitted to the hospital for hepatic encephalopathy. We will also Consult nephrology for hemodialysis. Allergies No Known Drug Allergies Allergy (Verified 01/20/18 23:06) Unknown Home Medications: Acetaminophen [Tylenol] 2 tab PO Q6H PRN 01/21/18 Famotidine 20 mg PO BEDTIME 01/21/18 Insulin Detemir [Levemir] 25 unit SQ DAILY WITH BREAKFAST 01/21/18 Insulin Lispro [Admelog] 100 unit SQ SEECOM 01/21/18 Lactulose [Enulose] 30 ml PO TID 01/21/18 Neomycin 500mg 3 tab PO DAILY 01/21/18 Nystatin 100,000 unit TOP BID 01/21/18 Propranolol [Inderal*] 20 mg PO SEECOM 01/21/18 Tramadol HCl [Ultram] 50 mg PO Q6HP PRN 01/21/18 ARIPiprazole [Abilify*] 7.5 mg PO SEECOM 02/06/18 Folic Acid/Vitamin B Comp W-C [Nephro-Dulce Tablet] 1 tab PO DAILY 02/06/18 Gabapentin 1 cap PO TID 02/06/18 Lidocaine [Aspercreme] 1 patch TOP DAILY 02/06/18 Sertraline [Zoloft*] 50 mg PO DAILY 02/06/18 Temazepam [Restoril*] 15 mg PO BEDTIME 02/06/18 Trazodone [Desyrel*] 0.5 tab PO BEDTIME 02/06/18 - Past Medical/Surgical History Has patient received pneumonia vaccine in the past: No Diabetic: Yes -: Hepatitis C with Cirrhosis of liver -: CHF -: HTN -: Hypothyroidism -: GERD -: Peptic Ulcer -: UTI, Recurrent -: Chronic back pain -: Anxiety/Depression -: UTI, Recurrent -: Chronic back pain -: Anxiety/Depression -: Cardiac Cath -: -: Tonsillectomy Psychosocial/ Personal History: Lives by herself. Currently at group home - Family History Mother Medical History: Heart disease, Other (see notes) Notes: Anxiety Father Medical History: Diabetes - Social History Smoking Status: Never smoker Caffeine use: No Place of Residence: [facility]-Term Review of Systems 10-point ROS is otherwise unremarkable Physical Examination - Vital Signs Temperature: 96.8 F Blood Pressure: 105/58 Pulse: 62 Respirations: 16 Pulse Ox (%): 97 - Physical Exam General: Alert, Confused HEENT: Atraumatic, PERRLA, Mucous membr. moist/pink, EOMI, Sclerae nonicteric Neck: Supple, 2+ carotid pulse no bruit, No LAD, Without JVD or thyroid abnormality Respiratory: Clear to auscultation bilaterally, Normal air movement Cardiovascular: Regular rate/rhythm, Normal S1 S2, Systolic murmur Gastrointestinal: Normal bowel sounds, Soft and benign, Non-distended, No tenderness Musculoskeletal: No clubbing, No swelling, No tenderness Integumentary: No rashes Neurological: Sensation intact, Cranial nerves 3-12 intact, Normal affect, Abnormal gait, Abnormal speech, Abnormal strength, Abnormal tone Lymphatics: No axilla or inguinal lymphadenopathy - Studies Laboratory Data (last 24 hrs) 02/05/18 19:15: PT 13.2 H, INR 1.12 02/05/18 19:15: WBC 3.2 L, Hgb 11.4 L, Hct 32.9 L, Plt Count 50 L* 02/05/18 19:15: Sodium 123 L, Potassium 4.5, BUN 53 H, Creatinine 6.40 H*, Glucose 115 H, Magnesium 3.4 H, Total Bilirubin 1.4 H, AST 93 H, ALT 38, Alkaline Phosphatase 337 H Assessment & Plan - Problems (Diagnosis) (1) Hepatic encephalopathy Onset Date: 03/24/16 Current Visit: No Status: Chronic (2) Altered mental status Current Visit: No Status: Acute Qualifiers: Altered mental status type: unspecified Qualified Code(s): R41.82 - Altered mental status, unspecified (3) Congestive heart failure with LV diastolic dysfunction, NYHA class 3 Onset Date: 06/07/16 Current Visit: No Status: Chronic (4) Depression with anxiety Onset Date: 06/07/16 Current Visit: No Status: Chronic (5) Diabetes mellitus Onset Date: 09/01/17 Current Visit: No Status: Chronic Qualifiers: Diabetes mellitus type: type 2 Diabetes mellitus intermediate frame tender insulin use: without intermediate frame tender use Diabetes mellitus complication status: without complication Qualified Code(s): E11.9 - Type 2 diabetes mellitus without complications (6) ESRD (end stage renal disease) on dialysis Onset Date: 10/25/17 Current Visit: No Status: Chronic (7) HTN (hypertension) Onset Date: 09/27/16 Current Visit: No Status: Chronic Qualifiers: Hypertension type: essential hypertension Qualified Code(s): I10 - Essential (primary) hypertension (8) Hepatitis C Onset Date: 06/07/16 Current Visit: No Status: Chronic Qualifiers: (9) Liver cirrhosis Onset Date: 02/16/16 Current Visit: No Status: Chronic Qualifiers: - Plan Plan: 1. Lactulose 2. Rifaximin 3. Monitor ammonia level 4. Nephrology consultation 5. Hemodialysis 6. Monitor blood sugars 7. May need MRI if his symptoms do not worsen 8. Monitor complete blood count daily as well as renal function and liver function testing 9. GI and DVT prophylaxis Discharge Plan: Long-Term Plan to discharge in: Greater than 2 days - Advance Directives Does patient have a Living Will: No Does patient have a Durable POA for Healthcare: No - Code Status/Comfort Care Code Status Assessed: Yes Code Status: Full Code Critical Care: No Time Spent Managing PTS Care (In Minutes): 50
[2018-02-06] MEDS: INSULIN GLARGINE 100 UNITS/ML SQ SCH (08:00)
[2018-02-06] MEDS: FUROSEMIDE 40 MG TABLET PO SCH ×2 (09:00→21:00)
[2018-02-06] MEDS: ASCORBIC ACID 500 MG TABLET PO SCH ×2 (09:00→21:00)
[2018-02-06] MEDS: BUPROPRION HCL S.R. 150MG TAB PO SCH ×2 (09:00→21:00)
[2018-02-06] MEDS: ENOXAPARIN 30 MG/0.3 ML SQ SCH (09:00)
[2018-02-06] MEDS: GABAPENTIN 300 MG CAP PO SCH ×2 (09:00→21:00)
[2018-02-06] MEDS ORDERED: LACTULOSE 20 GM/30 ML UCUP PO SCH ×2 (09:00)
[2018-02-06] MEDS: NEOMYCIN SULFATE 500 MG TAB PO SCH ×2 (09:00→21:00)
[2018-02-06] MEDS: PROPRANOLOL HCL 40 MG TAB PO SCH ×3 (09:00→21:00)
[2018-02-06] MEDS: Rifaximin 550 MG Tab PO SCH ×2 (09:00→21:00)
--- NOTE | 2018-02-06 10:04 | EKG ---
Test Date: 2018-02-05 Test Time: 20:19:21 Sales Contractor: MG MEASUREMENT RESULTS: Intervals: Rate: 58 ID: [id number] QRSD: 86 QT: 476 QTc: 467 [place]: P: 34 ID: [id number] QRS: -17 T: 23 INTERPRETIVE STATEMENTS: Sinus bradycardia Minimal voltage criteria for LVH, may be normal variant Cannot rule out Anterior infarct, age undetermined Abnormal ECG Compared to ECG 02/01/2018 16:18:19 Left ventricular hypertrophy now present Myocardial infarct finding now present Electronically Signed On 02-06-18 10:03:34 CDT by Cristiano Stevenson
[2018-02-06] MEDS ORDERED: D5 0.45 NS 1,000 ML IV SCH (11:00)
[2018-02-06] MEDS ORDERED: LACTULOSE 20 GM/30 ML UCUP PR PRN (12:12)
[2018-02-06] MEDS: NYSTATIN PWDR 100000 UNIT/GM TOP SCH ×2 (14:31→22:04)
[2018-02-06] MEDS ORDERED: NA CHLORIDE 0.9% 1,000 ML IV PRN (15:48)
[2018-02-06] MEDS: ALBUMIN HUMAN 25% 50 ML IV SCH ×2 (16:07→17:38)
[2018-02-06] MEDS: D5 0.45 NS 1,000 ML IV SCH (17:35)
--- NOTE | 2018-02-06 19:12 | P.CNS ---
Date of Consult: 02/06/18 Reason for Consult: ESRD to resume HD and elctrolytes abnormalities Chief Complaint: AMS/Hepatic encephalopathy Allergies No Known Drug Allergies Allergy (Verified 01/20/18 23:06) Unknown Home Medications: Acetaminophen [Tylenol] 2 tab PO Q6H PRN 01/21/18 Famotidine 20 mg PO BEDTIME 01/21/18 Insulin Detemir [Levemir] 25 unit SQ DAILY WITH BREAKFAST 01/21/18 Insulin Lispro [Admelog] 100 unit SQ SEECOM 01/21/18 Lactulose [Enulose] 30 ml PO TID 01/21/18 Neomycin 500mg 3 tab PO DAILY 01/21/18 Nystatin 100,000 unit TOP BID 01/21/18 Propranolol [Inderal*] 20 mg PO SEECOM 01/21/18 Tramadol HCl [Ultram] 50 mg PO Q6HP PRN 01/21/18 ARIPiprazole [Abilify*] 7.5 mg PO SEECOM 02/06/18 Folic Acid/Vitamin B Comp W-C [Nephro-Dulce Tablet] 1 tab PO DAILY 02/06/18 Gabapentin 1 cap PO TID 02/06/18 Lidocaine [Aspercreme] 1 patch TOP DAILY 02/06/18 Sertraline [Zoloft*] 50 mg PO DAILY 02/06/18 Temazepam [Restoril*] 15 mg PO BEDTIME 02/06/18 Trazodone [Desyrel*] 0.5 tab PO BEDTIME 02/06/18 - Past Medical/Surgical History Diabetic: Yes -: Hepatitis C with Cirrhosis of liver -: CHF -: HTN -: Hypothyroidism -: GERD -: Peptic Ulcer -: UTI, Recurrent -: Chronic back pain -: Anxiety/Depression -: UTI, Recurrent -: Chronic back pain -: Anxiety/Depression -: Cardiac Cath -: -: Tonsillectomy Psychosocial/ Personal History: Lives by herself. Currently at [facility] - Family History Mother Medical History: Heart disease, Other (see notes) Notes: Anxiety Father Medical History: Diabetes - Social History Smoking Status: Unknown if ever smoked Alcohol use: No CD- Drugs: Yes Caffeine use: No Place of Residence: [place] Physical Examination Temp Pulse Resp BP Pulse Ox 97.2 F 81 18 92/47 L 96 02/06/18 16:00 02/06/18 16:00 02/06/18 16:00 02/06/18 16:00 02/06/18 12:00 General: In no apparent distress, Other HEENT: Atraumatic Neck: Supple, Without JVD or thyroid abnormality Respiratory: Clear to auscultation bilaterally Cardiovascular: No edema Laboratory Data (last 24 hrs) 02/05/18 19:15: PT 13.2 H, INR 1.12 02/05/18 19:15: WBC 3.2 L, Hgb 11.4 L, Hct 32.9 L, Plt Count 50 L* 02/05/18 19:15: Sodium 123 L, Potassium 4.5, BUN 53 H, Creatinine 6.40 H*, Glucose 115 H, Magnesium 3.4 H, Total Bilirubin 1.4 H, AST 93 H, ALT 38, Alkaline Phosphatase 337 H - Problems (1) Hyponatremia Current Visit: Yes Status: Acute (2) Acute encephalopathy Onset Date: 12/30/17 Current Visit: No Status: Acute (3) Altered mental status Current Visit: No Status: Acute Qualifiers: Altered mental status type: unspecified Qualified Code(s): R41.82 - Altered mental status, unspecified (4) Hypotension Onset Date: 12/15/15 Current Visit: No Status: Chronic (5) ESRD (end stage renal disease) on dialysis Onset Date: 10/25/17 Current Visit: No Status: Chronic Conclusions/Impression: Pt is lethargic, Hx obtained from chart A 52-year-old woman [place] resident with PMHx of ESRD 2/2 hepatorenal on HD TTsat hep C and cirrhosis , hypertension, congestive heart failure, hypothyroidism, , diabetes complicated with neuropathy and nephropathy. [place] was sent from [place] for A[place] Ammonia level 250, Na 123 Pt was admitted previously for similar symptoms, unsure if taking lactulose on regular bases Assessment And Plan: 1.End-stage renal disease. Will do HD today, for hyponatremia and elevated ammonia level dialysis with low dialysate Na will consider HD tomorrow , if still lethargic adjust meds as per RFT reduce IVF to 40ml/hr 2.Hyponatremia Cirrhosis and hypervolemia HD today 3.Hypotension chronic will consider Midodrine if there's [rpble, with fluid removal pt is euvolemic 3.Altered mental status secondary to hepatic encephalopathy. Head CT -ve Ammonia ~250 HD today 4.Diabetes as by primary.
[2018-02-06] MEDS: ARIPiprazole 5 MG TAB PO SCH (21:00)
[2018-02-06] MEDS: FAMOTIDINE 20 MG TAB PO SCH (21:00)
[2018-02-07] MEDS: D5 0.45 NS 1,000 ML IV SCH (05:09)
[2018-02-07 05:49] LABS: Absolute Lymphocytes (CBC) 0.6 K/uL (0.7-4.9); Absolute Monocytes 0.4 K/uL (0.1-1.3); Absolute Neutrophil 2.1 K/uL (1.8-8.0); Basophils % 0.9 % (0-1.3); Hematocrit 27.7 % (36.0-45.0); Lymphocytes % 20.1 % (15.3-44.8); MCH 34.1 pg (27.0-35.0); MCV 96.2 fL (80-100); MPV 9.1 fL (7.6-11.3); Monocytes % 11.7 % (3.3-12.3); RBC Red Blood Cell Count 2.88 M/uL (3.86-4.86)
[2018-02-07 05:53] LABS: Protime INR 1.23
[2018-02-07 05:59] LABS: Albumin 2.5 g/dL (3.4-5.0); Potassium 3.5 mmol/L (3.5-5.1); Protein, Total 6.2 g/dL (6.4-8.2)
[2018-02-07] MEDS: INSULIN GLARGINE 100 UNITS/ML SQ SCH (08:00)
[2018-02-07] MEDS: PROPRANOLOL HCL 40 MG TAB PO SCH ×3 (09:00→21:00)
[2018-02-07] MEDS: Rifaximin 550 MG Tab PO SCH ×2 (09:00→22:08)
[2018-02-07] MEDS: GABAPENTIN 300 MG CAP PO SCH ×2 (09:00→21:57)
[2018-02-07] MEDS: NEOMYCIN SULFATE 500 MG TAB PO SCH ×2 (09:00→22:05)
[2018-02-07] MEDS: FUROSEMIDE 40 MG TABLET PO SCH ×2 (09:00→21:00)
[2018-02-07] MEDS: BUPROPRION HCL S.R. 150MG TAB PO SCH ×2 (09:00→22:08)
[2018-02-07] MEDS: ASCORBIC ACID 500 MG TABLET PO SCH ×2 (09:00→22:17)
[2018-02-07] MEDS: NYSTATIN PWDR 100000 UNIT/GM TOP SCH ×2 (09:26→21:00)
[2018-02-07] MEDS: D50W 25 GM/50 ML SYRINGE IV PRN (10:11)
--- NOTE | 2018-02-07 12:32 | P.PN ---
Subjective Date of Service: 02/07/18 Chief Complaint: AMS/Hepatic encephalopathy Patient seen and examined at bedside. No family at bedside. Patient's mentation slightly improved this morning, she is able to talk this morning though still seems confused. She is complaining of back pain. Review of Systems 10-point ROS is otherwise unremarkable Physical Examination - Vital Signs Temperature: 98.8 F Blood Pressure: 92/50 Pulse: 68 Respirations: 17 Pulse Ox (%): 95 - Physical Exam General: Oriented x1, Confused HEENT: Atraumatic Neck: Supple, JVD not distended Respiratory: Clear to auscultation bilaterally, Normal air movement Cardiovascular: Regular rate/rhythm Gastrointestinal: Normal bowel sounds, Non-distended, No masses, No rebound, No guarding, Tenderness (Left upper quadrant, epigastric area) Assessment And Plan - Current Problems (Diagnosis) (1) Altered mental status Current Visit: No Status: Acute Plan: Improved mentation today. Ammonia levels decreasing. Patient seen by speech therapy, recommended increasing to liquids are soft diet. Start some clear liquid diet. Change AK Lactulose to oral and Rifaximin. May need an MRI if mentation not improving. Qualifiers: Altered mental status type: unspecified Qualified Code(s): R41.82 - Altered mental status, unspecified (2) Hyponatremia Current Visit: Yes Status: Acute Plan: Improved after dialysis was still hyponatremic. Will continue fluids at 40 cc an hr. May receive another dialysis session today. Will continue to monitor (3) Anemia Onset Date: 09/27/16 Current Visit: No Status: Chronic Plan: Stable. Monitor H&H Qualifiers: Anemia type: due to chronic kidney disease Chronic kidney disease stage: stage 4 (severe) Qualified Code(s): N18.4 - Chronic kidney disease, stage 4 ( severe); D63.1 - Anemia in chronic kidney disease (4) Diabetes mellitus Onset Date: 09/01/17 Current Visit: No Status: Chronic Plan: Accu-Cheks AC and HS. Mild sliding scale insulin ordered. 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 Nephrology is consulted, recommendations appreciated. Continue hemodialysis per Nephrology. (6) Hepatic encephalopathy Onset Date: 03/24/16 Current Visit: No Status: Chronic (7) Back pain Current Visit: Yes Status: Acute Plan: Per patient's dialysis center, patient had a fall a few days ago before admission. Upon waking this morning she is complaining of back pain. CT head negative on the initial evaluation. Will get some imaging of back/spine to evaluate further. lidocaine patch for pain control ordered
[2018-02-07 14:20] VITALS: BMI 35.8
[2018-02-07] MEDS: LIDOCAINE 5% PATCH TOP SCH (14:33)
--- NOTE | 2018-02-07 20:48 | RAD REPORT ---
EXAM DESCRIPTION: RAD - Lumbar Spine 3 Views - 02/07/2018 8:41 pm CLINICAL HISTORY: Back pain status post fall FINDINGS: No fracture or dislocation is seen.
--- NOTE | 2018-02-07 20:50 | RAD REPORT ---
EXAM DESCRIPTION: RAD - Thoracic Spine Ap/Lat - 02/07/2018 8:41 pm CLINICAL HISTORY: Back pain FINDINGS: Bones are osteoporotic. No fracture is seen. No dislocation is seen
[2018-02-07] MEDS: FAMOTIDINE 20 MG TAB PO SCH (21:00)
[2018-02-07] MEDS: LACTULOSE 20 GM/30 ML UCUP PO SCH (21:48)
--- NOTE | 2018-02-07 22:01 | RAD REPORT ---
EXAM DESCRIPTION: RAD - C Spine Ap/Lat - 02/07/2018 8:41 pm CLINICAL HISTORY: Neck pain status post injury FINDINGS: The bones are osteoporotic. Evaluation of the superior anterior aspect of C5, C6 and C7 is limited secondary to overlying shoulde rs. No fracture or dislocation involving C1 through C4 is noted. No gross abnormality of C5 is seen. If patient continues have symptoms to suggest cervical spine pathology then repeat imaging and with b magdalena visualization would be recommended
--- NOTE | 2018-02-07 22:13 | PN ---
Date of Progress Note: 02/07/2018 Subjective: The patient was admitted with altered mental status and hyponatremia. The patient was m ore awake today, has multiple pain complaints. Physical Examination: Vital Signs: Blood pressure of 107/68, pulse of 68, afebrile. Chest: Clear to auscultation. Heart: S1 and S2 regular. Abdomen: Soft, . Extremities: No edema. Neuro: More awake, still weak, nonfocal. Laboratory Data: WBC 3.1. H and H 9.8/27.7. Sodium 132, potassium 3.5, bicarb 24, BUN 34, creatini ne 4.4, calcium 7.6. Ammonia of 85. Current Medications: The patient on include: 1.Lactulose. 2.Abilify. 3.Wellbutrin. 4.Gabapentin 300 b.i.d. 5.Insulin. 6.Milk of magnesia. 7.Zofran. 8.Inderal. 9.Xifaxan. Assessment And Plan: 1.End-stage renal disease. No hyperkalemia. Has hyponatremia. I am going to arrange for dialysis tomorrow. We will challenge the patient given the edema. 2.Hyponatremia secondary to dilutional cirrhosis and renal failure. Corrected, will be improved ricky orrow hopefully with the dialysis. 3.Hypertension, currently blood pressure on the lower side. I am going to go ahead and hold on the Inderal. 4.Altered mental status, secondary to cirrhosis and hepatic encephalopathy. I am going to decrease her gabapentin. Continue her lactulose. 5.Hypokalemia. The patient is going to be dialyzed on high potassium bath. We will hold on any supplement right now. 6.Cirrhosis as above. We will follow up with the primary. JAYLA/VANIA Voice ID: [id number] Report ID: [id number]
[2018-02-07] MEDS: ARIPiprazole 5 MG TAB PO SCH (22:17)
[2018-02-08] MEDS ORDERED: FENTANYL CITR 100 MCG/2 ML IV ONE (02:43)
[2018-02-08] MEDS: D5 0.45 NS 1,000 ML IV SCH (03:22)
[2018-02-08] MEDS: INSULIN GLARGINE 100 UNITS/ML SQ SCH (08:00)
[2018-02-08] MEDS: FUROSEMIDE 40 MG TABLET PO SCH ×2 (09:00→21:56)
[2018-02-08] MEDS: NYSTATIN PWDR 100000 UNIT/GM TOP SCH ×2 (09:00→20:46)
[2018-02-08] MEDS: PROPRANOLOL HCL 40 MG TAB PO SCH (09:00)
[2018-02-08] MEDS: LACTULOSE 20 GM/30 ML UCUP PO SCH ×3 (10:12→20:45)
[2018-02-08] MEDS: ASCORBIC ACID 500 MG TABLET PO SCH ×2 (10:13→21:07)
[2018-02-08] MEDS: GABAPENTIN 300 MG CAP PO SCH (10:13)
[2018-02-08] MEDS: Rifaximin 550 MG Tab PO SCH ×2 (10:14→21:07)
[2018-02-08] MEDS: NEOMYCIN SULFATE 500 MG TAB PO SCH ×2 (10:14→20:44)
[2018-02-08] MEDS: LIDOCAINE 5% PATCH TOP SCH (10:15)
[2018-02-08] MEDS: BUPROPRION HCL S.R. 150MG TAB PO SCH ×2 (10:15→21:07)
[2018-02-08] MEDS: ALBUMIN HUMAN 25% 50 ML IV SCH ×2 (11:30→12:00)
[2018-02-08] MEDS: Meropenem 1,000 MG in NA CHLORIDE 0.9% 100 ML IV SCH ×2 (12:00→20:45)
[2018-02-08] MEDS ORDERED: Meropenem 1,000 MG in NA CHLORIDE 0.9% 100 ML IV SCH (12:00)
[2018-02-08] MEDS ORDERED: Meropenem 1000 MG/VIAL IV SCH (17:00)
[2018-02-08] MEDS: INSULIN -REGULAR HUMAN 50 UNIT/0.5 ML ML SQ SCH ×2 (17:30→20:47)
--- NOTE | 2018-02-08 17:44 | P.PN ---
Subjective Date of Service: 02/08/18 Chief Complaint: AMS/Hepatic encephalopathy Subjective: Tolerating diet, Improving, Working w/ PT, Doing well Patient seen and examined at bedside with RN. Chart reviewed. Case discussed with general surgery for central line placement. Patient is a little bit more alert and oriented than before. Does complain of having some generalized weakness however Review of Systems 10-point ROS is otherwise unremarkable Physical Examination - Vital Signs Temperature: 97.5 F Blood Pressure: 116/60 Pulse: 73 Respirations: 16 Pulse Ox (%): 99 - Physical Exam General: Alert, In no apparent distress, Oriented x2 HEENT: Atraumatic, PERRLA, EOMI Neck: Supple, JVD not distended Respiratory: Clear to auscultation bilaterally, Normal air movement Cardiovascular: Regular rate/rhythm, Normal S1 S2 Gastrointestinal: Normal bowel sounds, No tenderness Musculoskeletal: No tenderness Integumentary: No rashes Neurological: Normal speech, Normal tone, Normal affect Lymphatics: No axilla or inguinal lymphadenopathy - Studies Medications List Reviewed: Yes Assessment And Plan - Current Problems (Diagnosis) (1) Altered mental status Current Visit: No Status: Acute Plan: Altered mental status most likely secondary to toxic encephalopathy versus hepatic encephalopathy -now patient is alert and oriented x2. -lactulose t.i.d. along with IV antibiotics for UTI -continue to monitor patient closely -head CT in the ER and negative for any acute abnormality -no further need for MRI at this time Qualifiers: Altered mental status type: disorientation Qualified Code(s): R41.0 - Disorientation, unspecified (2) UTI (urinary tract infection) Onset Date: 06/07/16 Current Visit: No Status: Acute Plan: UA concerning for UTI -urine culture positive for E. S. BL -general surgery consulted for central line placement -IV meropenem 1 g q.8 hr for total 14 days -central line to be done tomorrow morning after patient has platelet transfusion today Qualifiers: Urinary tract infection type: acute cystitis Hematuria presence: without hematuria Qualified Code(s): N30.00 - Acute cystitis without hematuria (3) Hepatic encephalopathy Onset Date: 03/24/16 Current Visit: No Status: Chronic Plan: Lactulose t.i.d. for right now. 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: without half-way use Diabetes mellitus complication status: without complication Qualified Code(s): E11.9 - Type 2 diabetes mellitus without complications (7) ESRD (end stage renal disease) on dialysis Onset Date: 10/25/17 Current Visit: No Status: Chronic (8) GERD (gastroesophageal reflux disease) Onset Date: 09/27/16 Current Visit: No Status: Chronic Qualifiers: Esophagitis presence: without esophagitis Qualified Code(s): K21.9 - Gastro -esophageal reflux disease without esophagitis (9) HTN (hypertension) Onset Date: 09/27/16 Current Visit: No Status: Chronic Qualifiers: Hypertension type: essential hypertension Qualified Code(s): I10 - Essential (primary) hypertension (10) Liver cirrhosis Onset Date: 02/16/16 Current Visit: No Status: Chronic Qualifiers: (11) Pancytopenia Onset Date: 11/24/17 Current Visit: No Status: Chronic - Plan Patient is currently awaiting clinical improvement at this time. Currently awaiting central line placement and then patient will be transferred to [facility] for total 14 days for IV antibiotics and further care Discharge Plan: [facility] Plan to discharge in: 48 Hours - Code Status/Comfort Care Code Status Assessed: Yes Critical Care: No
[2018-02-08] MEDS ORDERED: GABAPENTIN 100 MG CAP ONE (18:07)
[2018-02-08] MEDS ORDERED: D50W 25 GM/50 ML SYRINGE IV PRN (18:35)
[2018-02-08] MEDS ORDERED: GLUCAGON 1 MG/VIAL IM PRN (18:35)
--- NOTE | 2018-02-08 19:23 | RAD REPORT ---
EXAM DESCRIPTION: US - Renal Ultrasound-Complete - 02/08/2018 7:05 pm CLINICAL HISTORY: Urinary tract infection COMPARISON: December 30 CT imaging FINDINGS: The right kidney measures 11.3 x 5.7 x 4.1 cm. The left kidney measures 11.1 x 3.9 x 4.2 cm. Renal cortical thickness and echogenicity are normal. No hydronephrosis or suspicious renal mass. Bladder was contracted limiting assessment. IMPRESSION: No hydronephrosis or suspicious renal mass. No other significant findings.
--- NOTE | 2018-02-08 20:16 | PN ---
Date of Progress Note: 02/08/2018 Subjective: The patient doing slightly better. More awake. No nausea. No vomiting. Physical Examination: Vital Signs: Blood pressure 116/60, pulse of 73, afebrile. The patient had dialysis day before yest erday of 1300. Chest: Faint crackles bilateral. Heart: S1, S2. Systolic murmur. Abdomen: Soft, nontender, ascites. Extremities: Plus edema. Laboratory Data: WBC 3.1, H and H 9.8 and 27.7, platelets of 45. Sodium 132, potassium 3.5, bicarb 24, BUN 34, creatinine 4.4, calcium 7.6. Ammonia 85. Current Medications: The patient on include: 1.Abilify. 2.Pepcid. 3.Lasix 80 b.i.d. 4.Gabapentin 300 b.i.d. 5.Lactulose. 6.Meropenem. 7.Inderal 10 b.i.d. 8.Xifaxan. Assessment And Plan: 1.End-stage renal disease. Still on the wet side. I going to do another dialysis today and we will challenge the patient. 2.Hypertension. We will keep tapering the blood pressure medication to establish better blood press ure to utilize it for the ultra filtration. 3.Altered mental status hepatic encephalopathy. I am going to go ahead and decrease her gabapentin to 100 mg and will follow up the patient. Continue lactulose. 4.Urinary tract infection. Recurrent with the ESBL. Plan for central line. I am going to go ahead and get renal ultrasound to evaluate for any localization giving the recurrent UTI. We will follow up. I agree with meropenem for the time being. 5.Cirrhosis. As above. JAYLA/VANIA Voice ID: [id number] Report ID: [id number]
[2018-02-08] MEDS: PROPRANOLOL HCL 10 MG TAB PO SCH (20:44)
[2018-02-08] MEDS: FAMOTIDINE 20 MG TAB PO SCH (20:44)
[2018-02-08] MEDS: ARIPiprazole 5 MG TAB PO SCH (20:45)
[2018-02-08] MEDS: GABAPENTIN 100 MG CAP PO SCH (21:07)
[2018-02-09 05:48] LABS: Albumin 2.7 g/dL (3.4-5.0); Phosphorus 3.6 mg/dL (2.5-4.9); Potassium 3.3 mmol/L (3.5-5.1)
[2018-02-09] MEDS: NA CHLORIDE 0.9% 250 ML ONE ×2 (06:28→07:45)
[2018-02-09] MEDS: KCL 20 MEQ/100 mL IVPB 20 MEQ/100 ML BAG IV SCH ×2 (06:28→09:00)
[2018-02-09] MEDS: INSULIN -REGULAR HUMAN 50 UNIT/0.5 ML ML SQ SCH ×4 (07:30→21:00)
[2018-02-09] MEDS ORDERED: CEFAZOLIN/SWI 1gm 1 GM/10 ML SYR IVP SCH (07:30)
[2018-02-09] MEDS ORDERED: NS 0.9% VIAL 20 ML ONE (07:32)
[2018-02-09] MEDS ORDERED: LIDOCAINE 1% MPF 30 ML VIAL ONE (07:33)
[2018-02-09] MEDS: HEPARIN 5000 UNIT/ML 1 ML VIAL ONE ×2 (07:33→08:31)
[2018-02-09] MEDS ORDERED: CEFAZOLIN/SWI 1gm 1 GM/10 ML SYR ONE (07:39)
[2018-02-09] MEDS ORDERED: NA CHLORIDE 0.9% 500 ML ONE ×2 (07:39→08:19)
[2018-02-09] MEDS ORDERED: MIDAZOLAM HCL 2 MG/2 ML INJ ONE ×2 (07:59→09:08)
[2018-02-09] MEDS: INSULIN GLARGINE 100 UNITS/ML SQ SCH (08:00)
[2018-02-09] MEDS ORDERED: LIDOCAINE 1% MPF 5 ML VIAL ONE (08:05)
[2018-02-09] MEDS ORDERED: PROPOFOL 200 MG/20 ML VIAL IV ONE ×2 (08:05→09:08)
[2018-02-09] MEDS ORDERED: FENTANYL CITR 100 MCG/2 ML ONE (08:05)
[2018-02-09] MEDS: LIDOCAINE 5% PATCH TOP SCH (09:00)
[2018-02-09] MEDS: NYSTATIN PWDR 100000 UNIT/GM TOP SCH ×2 (09:00→21:00)
[2018-02-09] MEDS: GABAPENTIN 100 MG CAP PO SCH (09:00)
[2018-02-09] MEDS: PROPRANOLOL HCL 10 MG TAB PO SCH ×2 (09:00→22:28)
[2018-02-09] MEDS: LACTULOSE 20 GM/30 ML UCUP PO SCH ×3 (09:00→21:48)
[2018-02-09] MEDS: FUROSEMIDE 40 MG TABLET PO SCH (09:00)
--- NOTE | 2018-02-09 10:11 | P.OP ---
Preoperative diagnosis: need for IV ABX Postoperative diagnosis: same Primary procedure: Attempted central line placement both sides Anesthesia: MAC Estimated blood loss: min Specimen: None Findings: Difficuly anatomy Complications: None Transferred to: Recovery Room Condition: Good
--- NOTE | 2018-02-09 10:40 | RAD REPORT ---
EXAM DESCRIPTION: RAD - Chest Single View - 02/09/2018 10:32 am CLINICAL HISTORY: Unsuccessful central line placement procedure COMPARISON: February 05 TECHNIQUE: AP portable chest image was obtained 1014 hours . FINDINGS: No pneumothorax is identifiable on this examination. It is possible for a small anterior p neumothorax to be present and occult. No findings to suspect that possibility. No pleural fluid colle ction. Lung franco are clear. Cardiomediastinal silhouette within normal limits and stable. Right-jeet ed dialysis catheter remains in place. IMPRESSION: No pneumothorax identified on portable imaging.
[2018-02-09 10:51] LABS: MPV 9.6 fL (7.6-11.3)
[2018-02-09 11:00] LABS: Platelet Estimate DECR
--- NOTE | 2018-02-09 11:13 | RAD REPORT ---
EXAM DESCRIPTION: RAD - Fluoroscopy <1 Hour - 02/09/2018 11:07 am FINDINGS: Two portable C-arm views were obtained during attempted subclavian line placement. Fluoro time was less than 0.1 minutes.
[2018-02-09] MEDS ORDERED: NA CHLORIDE 0.9% 250 ML ONE (11:23)
--- NOTE | 2018-02-09 11:54 | PREOPCON ---
Date of Consultation: 02/08/2018 Reason: The patient needs long-term IV antibiotics. History Of Present Illness: The patient is a 52-year-old female with multiple medical problems, who came in with altered mental status, hepatic encephalopathy. Workup revealed UTI with elevated ammoni a level and the UTI was E. coli and it is ESBL and requires meropenem. She is on dialysis. Does hav e a Tesio catheter, however, needs a central line for continued IV antibiotics. She is awake, confus ed. Consent was obtained from the family. No fever or chills. Review of Systems: Otherwise unremarkable. Past Medical History: End-stage renal disease, hepatitis C, cirrhosis of the liver, CHF, hypertensio n, GERD, anxiety, depression. Past Surgical History: Cardiac cath, , tonsillectomy, Tesio catheter placement, which I did myself earlier this year. Allergies: NONE. Social History: She does not smoke. Does not currently drink. Family History: Significant for diabetes and heart disease. Physical Examination: Vital Signs: Stable. She is afebrile. She is awake and confused. Head and Neck: No masses. Chest: Clear. Heart: S1, S2. Abdomen: Soft. Extremities: Neurovascularly intact. Neuro: Nonfocal. Laboratory Data: Her white count is 3.1, H and H is 9.8 and 27.7, platelets are 45,000. INR is 1.23 . Chemistry reviewed. Assessment: A 52-year-old with multiple medical problems with Escherichia coli, extended-spectrum be ta-lactamase, requiring long-term IV antibiotics. Also patient has low platelets. Recommendation: We will place a central line, but she will require platelets on-call to the OR. Inf ormed consent obtained from the family. They understood risks, benefits, and alternatives and agreed . /MODL Voice ID: [id number] Report ID: [id number]
[2018-02-09] MEDS: Rifaximin 550 MG Tab PO SCH ×2 (12:00→21:53)
--- NOTE | 2018-02-09 12:00 | P.PN ---
Subjective Date of Service: 02/09/18 Chief Complaint: AMS/Hepatic encephalopathy Subjective: Other (Patient improved. Patient status post central line placement but unsuccessful.) Physical Examination - Vital Signs Temperature: 97.8 F Blood Pressure: 97/56 Pulse: 65 Respirations: 20 Pulse Ox (%): 97 - Physical Exam General: Alert, Cooperative HEENT: Atraumatic Neck: Supple Respiratory: Clear to auscultation bilaterally, Normal air movement Cardiovascular: Normal pulses, Regular rate/rhythm Gastrointestinal: Normal bowel sounds, Soft and benign, Non-distended, No masses , No rebound, No guarding Musculoskeletal: No erythema, No tenderness, No warmth Integumentary: No tenderness/swelling, No erythema, No warmth, No cyanosis Neurological: Normal speech, Normal strength at 5/5 x4 extr, Normal tone, Normal affect - Studies Medications List Reviewed: Yes Assessment & Plan Discharge Plan: [facility] Plan to discharge in: 48 Hours Physician Review Additional Text: Impression: Altered mental status secondary to toxic encephalopathy and hepatic encephalopathy UTI-E coli-ESBL Unsuccessful central line placement Chronic diastolic CHF class 3 Depression with anxiety Diabetes mellitus type 2, insulin-dependent End-stage renal disease on hemodialysis GERD Hypertension Liver cirrhosis Pancytopenia Plan: Altered mental status secondary to toxic encephalopathy and hepatic encephalopathy: This has improved with treatment of UTI and hepatic encephalopathy. Patient now on meropenem IV for UTI-ESBL. Patient continues with lactulose and Xifaxan. Ammonia level much improved. Central line was not successfully placed. Will consult infectious disease to consider other options for IV antibiotic therapy. Antibiotics IV cannot be given long-term through the dialysis catheter as per Nephrology. Will need to consider other options that may be available to give during dialysis. Will discuss further with infectious disease. Patient will need to return to the intermediate once plan of care is established. UTI-E coli-ESBL: Continue as above. Will need discuss with infectious disease on what other options can be done to provide IV antibiotic therapy for total 14 days. Since central line could not be placed, other options need to consider IV antibiotic therapy possibly during dialysis. Unsuccessful central line placement: Continue as above Chronic diastolic CHF class 3: Continue with fluid restriction. Will discontinue Lasix since the patient is getting dialysis. Depression with anxiety: Will continue with her medications. Will limit sedating medications. Diabetes mellitus type 2, insulin-dependent: Continue with basal insulin. Will monitor and adjust appropriately. End-stage renal disease on hemodialysis: Patient gets dialysis Mondays, Wednesdays and Fridays. Case discussed at length with nephrology. Await recommendations by infectious disease. GERD: Continue with medication Hypertension: Continue with medication. May need to hold if systolic less than 120 Liver cirrhosis: Continue with above treatment plan. Pancytopenia: Overall stable. Will monitor closely. Patient may require blood transfusion if hemoglobin less than 7.0. Patient may require platelet transfusion if platelet count less than 20. Time Spent Managing Pts Care (In Minutes): 55
[2018-02-09] MEDS: BUPROPRION HCL S.R. 150MG TAB PO SCH ×2 (12:17→21:50)
[2018-02-09] MEDS: NEOMYCIN SULFATE 500 MG TAB PO SCH ×2 (12:18→21:51)
[2018-02-09] MEDS: Meropenem 1,000 MG in NA CHLORIDE 0.9% 100 ML IV SCH ×2 (12:19→21:48)
[2018-02-09] MEDS: ASCORBIC ACID 500 MG TABLET PO SCH ×2 (12:36→21:49)
[2018-02-09] MEDS ORDERED: KCL 20 MEQ/100 mL IVPB 20 MEQ/100 ML BAG IV ONE (13:30)
--- NOTE | 2018-02-09 18:15 | CON ---
History Of Present Illness: This is a 52-year-old female. I was consulted for ESBL in her urine. T he patient also is on dialysis. She lives at [facility], came in to the hospital as the patient became unresponsive. The patient has longstanding history of cirrhosis and hepatic e ncephalopathy, not a good historian. Most of the history was obtained through medical records and st [facility]. The patient denies any headache, nausea, vomiting, chest pain, abdominal pain, constipation, or diarrhea. Past Medical History: Includes hepatitis C with liver cirrhosis, congestive heart failure, hypertens ion, end-stage renal disease, hypothyroidism, reflux, peptic ulcer, recurrent urinary tract infection , chronic back pains, anxiety, depression, cardiac cath, , tonsillectomy. Social History: Lives at [facility]. Family History: Noncontributory. Medications: The patient is currently on meropenem. See MARs for other medication. Allergies: NO KNOWN DRUG ALLERGIES. Review of Systems: A 10-point review was performed. Physical Examination: General: This is a 52-year-old female, lying in bed, not in any acute cardiopulmonary distress. Vital signs: Temperature 97.8, pulse 65, respiration 18, blood pressure 97/56. HEENT: Unremarkable. Neck: Supple. Lungs: Basal crackles. Heart: S1, S2. Regular. Abdomen: Soft, nontender. Bowel sounds positive. Extremities: Trace edema. Laboratory Data: Urine cultures are growing E. coli and Enterococcus faecalis. E. coli is ESBL, Ent erococcus faecalis is sensitive to ampicillin, vancomycin, penicillin, and rifampin; resistant to rodrigo nolones. Lab data shows WBC 3.1, hemoglobin 9.8, platelets are 45. Chemistry shows sodium 132, potassium 3.3, chloride 98, bicarb 23, BUN 27, creatinine 3.9, glucose is 77. Assessment And Plan: Recurrent urinary tract infection. The patient is growing Escherichia coli, wh ich is extended-spectrum beta-lactamase and Enterococcus faecalis in her urine, more than 100,000 col onies. Continue meropenem for a total of 7 days. Enterococcus faecalis is possibly colonized or can be treated with vancomycin with each dialysis total of 7 days. We will follow the patient as needed . Repeat urine cultures at the end of treatment. We will follow the patient closely. Thank you Dr. Polo for consult. NF/MODL Voice ID: [id number] Report ID: [id number]
[2018-02-09] MEDS: FAMOTIDINE 20 MG TAB PO SCH (21:49)
--- NOTE | 2018-02-09 23:38 | P.PN ---
Subjective Date of Service: 02/09/18 Chief Complaint: AMS/Hepatic encephalopathy Alert and oriented HD tomorrow E.coli ESBL Ertapenem on HD days Trend ammonia Physical Examination - Vital Signs Temperature: 99.2 F Blood Pressure: 114/59 Pulse: 92 Respirations: 18 Pulse Ox (%): 94 - Physical Exam General: Alert HEENT: Atraumatic Neck: Supple, Without JVD or thyroid abnormality Respiratory: Clear to auscultation bilaterally Cardiovascular: No edema - Studies Microbiology Data (last 24 hrs): 02/05/18 20:25 Catheterized Urine [place] Count - Final >100,000 CFU/ML. 02/05/18 20:25 Catheterized Urine - Final Escherichia Coli Enterococcus Faecalis Medications List Reviewed: Yes Assessment And Plan - Current Problems (Diagnosis) (1) Hyponatremia Current Visit: Yes Status: Acute (2) Acute encephalopathy Onset Date: 12/30/17 Current Visit: No Status: Acute (3) Altered mental status Current Visit: No Status: Acute Qualifiers: Altered mental status type: disorientation Qualified Code(s): R41.0 - Disorientation, unspecified (4) Hypotension Onset Date: 12/15/15 Current Visit: No Status: Chronic (5) ESRD (end stage renal disease) on dialysis Onset Date: 10/25/17 Current Visit: No Status: Chronic - Plan Assessment And Plan: 1.End-stage renal disease. pt s course TTsat Will do MWF while hospitalized adjust meds as per RFT 2.Hyponatremia Cirrhosis and hypervolemia 3.Hypotension chronic will consider Midodrine if there's [rpble, with fluid removal pt is euvolemic 3.Altered mental status secondary to hepatic encephalopathy. Head CT -ve Ammonia 250 and trending down Lactulose 4.Diabetes as by primary. 5. UTI C.coli ESBL Ertapenem on HD days Physician Review Additional Text: Impression: Altered mental status secondary to toxic encephalopathy and hepatic encephalopathy UTI-E coli-ESBL Unsuccessful central line placement Chronic diastolic CHF class 3 Depression with anxiety Diabetes mellitus type 2, insulin-dependent End-stage renal disease on hemodialysis GERD Hypertension Liver cirrhosis Pancytopenia Plan: Altered mental status secondary to toxic encephalopathy and hepatic encephalopathy: This has improved with treatment of UTI and hepatic encephalopathy. Patient now on meropenem IV for UTI-ESBL. Patient continues with lactulose and Xifaxan. Ammonia level much improved. Central line was not successfully placed. Will consult infectious disease to consider other options for IV antibiotic therapy. Antibiotics IV cannot be given long-term through the dialysis catheter as per Nephrology. Will need to consider other options that may be available to give during dialysis. Will discuss further with infectious disease. Patient will need to return to the snf once plan of care is established. UTI-E coli-ESBL: Continue as above. Will need discuss with infectious disease on what other options can be done to provide IV antibiotic therapy for total 14 days. Since central line could not be placed, other options need to consider IV antibiotic therapy possibly during dialysis. Unsuccessful central line placement: Continue as above Chronic diastolic CHF class 3: Continue with fluid restriction. Will discontinue Lasix since the patient is getting dialysis. Depression with anxiety: Will continue with her medications. Will limit sedating medications. Diabetes mellitus type 2, insulin-dependent: Continue with basal insulin. Will monitor and adjust appropriately. End-stage renal disease on hemodialysis: Patient gets dialysis Mondays, Wednesdays and Fridays. Case discussed at length with nephrology. Await recommendations by infectious disease. GERD: Continue with medication Hypertension: Continue with medication. May need to hold if systolic less than 120 Liver cirrhosis: Continue with above treatment plan. Pancytopenia: Overall stable. Will monitor closely. Patient may require blood transfusion if hemoglobin less than 7.0. Patient may require platelet transfusion if platelet count less than 20.
--- NOTE | 2018-02-10 02:25 | OP ---
Date of Procedure: 02/09/2018 Surgeon: Brent Vallejo MD Preoperative Diagnosis: Need for IV antibiotics. Postoperative Diagnosis: Need for IV antibiotics. Procedure: Attempted central line placement on the right and left side and fluoroscopy. Estimated Blood Loss: Minimal. Specimen: None. Findings: Unable to cannulate the veins on either side therefore the procedure was aborted, and the case was discussed with the field pipelines supervisor and the hospitalist. Anesthesia: MAC. Complications: None. Disposition: The patient tolerated the procedure in stable condition and taken to recovery room in g ood general condition. Procedure In Detail: The patient was brought to the OR and placed in supine position. MAC anesthesi a was begun. The patient was prepped and draped in usual sterile fashion. Lidocaine 1% infiltrated locally. First, right IJ was attempted, and I was able to access the right IJ vein without difficult y. However, when the guidewire would go in, it would stop and I was unable to proceed accordingly. Therefore, after several different attempts, I went to the left subclavian vein, same situation where I could access the limb and she had some deformity of the clavicle and I was unable to cannulate the vein with a guidewire. So at this time, we did a fluoroscopy of the left chest to make sure the pat ient does not have pneumo, her sats were good. She was in no respiratory distress at all and then we went to the right subclavian area to give it one shot to see if we could access of the circulatory s ystem. We were able to get the subcu vein without difficulty and again the guidewire would not pass without difficulty. At this time, the patient has a history of thrombocytopenia. There was a little bit of a hematoma developing. Pressure was applied. Hematoma was easily controlled on the left nec k. So, I felt it was unsafe to proceed as the patient already has a Tesio catheter that can be used for IV antibiotics. She can also get a PICC line in emergency situation or a more permanent IV acces s or long term with peripheral access for the antibiotics, and I discussed the case with Dr. Radha molina as well as the field pipelines supervisor nutritional yeast supervisor, and it was decided they would discuss with ID to see if the re were any other options, any other antibiotics that could be given to the patient as the patient is a high risk patient with poor vascular access. The patient was clinically stable in the operating r oom after this decision was made telephonically while the patient was in the operating room. The pat ient was awakened and then taken to recovery room in good general condition. A chest x-ray was order ed which was unremarkable. AUDIE/VANIA Voice ID: [id number] Report ID: [id number]
[2018-02-10 05:34] LABS: Absolute Lymphocytes (CBC) 0.4 K/uL (0.7-4.9); Absolute Monocytes 0.3 K/uL (0.1-1.3); Basophils % 1.6 % (0-1.3); Eosinophils % 3.5 % (0-4.4); Hematocrit 26.5 % (36.0-45.0); Lymphocytes % 23.8 % (15.3-44.8); MCH 33.7 pg (27.0-35.0); MCV 97.2 fL (80-100); MPV 8.9 fL (7.6-11.3); Monocytes % 18.1 % (3.3-12.3); RBC Red Blood Cell Count 2.72 M/uL (3.86-4.86)
[2018-02-10 06:11] LABS: Albumin 2.6 g/dL (3.4-5.0); Magnesium 2.2 mg/dL (1.8-2.4); Phosphorus 4.4 mg/dL (2.5-4.9); Potassium 3.6 mmol/L (3.5-5.1)
[2018-02-10 06:26] LABS: Blood Morphology Comment NOT SEEN (NOT SEEN); Platelet Estimate DECR
[2018-02-10] MEDS: INSULIN -REGULAR HUMAN 50 UNIT/0.5 ML ML SQ SCH ×4 (07:30→21:00)
[2018-02-10] MEDS: INSULIN GLARGINE 100 UNITS/ML SQ SCH (08:00)
[2018-02-10] MEDS: PROPRANOLOL HCL 10 MG TAB PO SCH ×2 (09:00→21:00)
[2018-02-10] MEDS: LACTULOSE 20 GM/30 ML UCUP PO SCH ×4 (09:00→21:02)
[2018-02-10] MEDS: NEOMYCIN SULFATE 500 MG TAB PO SCH ×2 (09:00→21:04)
[2018-02-10] MEDS: Rifaximin 550 MG Tab PO SCH ×2 (09:00→21:05)
[2018-02-10] MEDS: MULTIVITAMINS,THERAPEUT 1 TAB PO SCH (09:00)
[2018-02-10] MEDS: NYSTATIN PWDR 100000 UNIT/GM TOP SCH ×2 (09:00→23:35)
[2018-02-10] MEDS: SERTRALINE HCL 50 MG TAB PO SCH (09:00)
[2018-02-10] MEDS: BUPROPRION HCL S.R. 150MG TAB PO SCH ×2 (09:00→21:03)
[2018-02-10] MEDS: Meropenem 1,000 MG in NA CHLORIDE 0.9% 100 ML IV SCH ×2 (09:00→13:32)
[2018-02-10] MEDS: ENOXAPARIN 30 MG/0.3 ML SQ SCH (09:00)
[2018-02-10] MEDS: ASCORBIC ACID 500 MG TABLET PO SCH ×2 (10:14→21:05)
[2018-02-10] MEDS: D50W 25 GM/50 ML SYRINGE IV PRN (10:20)
--- NOTE | 2018-02-10 10:42 | P.PN ---
Subjective Date of Service: 02/10/18 Chief Complaint: AMS/Hepatic encephalopathy Subjective: Other (Patient doing better. Patient still reports some fatigue.) Physical Examination - Vital Signs Temperature: 97.1 F Blood Pressure: 101/53 Pulse: 62 Respirations: 18 Pulse Ox (%): 99 - Physical Exam General: Alert, In no apparent distress, Oriented x3, Cooperative HEENT: Atraumatic Neck: Supple Respiratory: Clear to auscultation bilaterally, Normal air movement Cardiovascular: Normal pulses, Regular rate/rhythm Gastrointestinal: Normal bowel sounds, Soft and benign, Non-distended, No tenderness, No masses, No rebound, No guarding Musculoskeletal: No erythema, No tenderness, No warmth Integumentary: No erythema, No warmth, No cyanosis Neurological: Normal speech, Normal strength at 5/5 x4 extr, Normal tone, Normal affect - Studies Microbiology Data (last 24 hrs): 02/05/18 20:25 Catheterized Urine [place] Count - Final >100,000 CFU/ML. 02/05/18 20:25 Catheterized Urine - Final Escherichia Coli Enterococcus Faecalis Medications List Reviewed: Yes Assessment & Plan Discharge Plan: Long Term Plan to discharge in: 24 Hours Physician Review Additional Text: Impression: Altered mental status secondary to toxic encephalopathy and hepatic encephalopathy UTI-E coli-ESBL Unsuccessful central line placement Chronic diastolic CHF class 3 Depression with anxiety Diabetes mellitus type 2, insulin-dependent End-stage renal disease on hemodialysis GERD Hypertension Liver cirrhosis Pancytopenia Plan: Altered mental status secondary to toxic encephalopathy and hepatic encephalopathy: This has improved with treatment of UTI and hepatic encephalopathy. Urine culture positive for E coli-ESBL and Enterococcus. Patient now on meropenem IV for UTI-ESBL and amoxicillin for enterococcus. Case discussed at length with infectious disease. Patient can be transition to Invanz 1 mg after each dialysis for 3 doses for coverage of ESBL. If this can be arranged for dialysis then the patient can possibly be discharged to the skilled nursing. If not patient will likely need to continue with current antibiotics-meropenem through Tuesday. Will discuss further with nephrology. Patient appears to be at her baseline level. Patient continues with lactulose and Xifaxan. Ammonia level much improved. Central line was not successfully placed yesterday. Femoral line is not preferable due to high risk of infection. UTI-E coli-ESBL and Enterococcus: Continue as above. Case discussed at length with infectious disease. Will continue with current IV meropenem and on amoxicillin. If Invanz can be arranged through dialysis then the patient can possibly be discharged back to the skilled nursing. Otherwise patient will likely need to continue with current antibiotic therapy through Tuesday. Unsuccessful central line placement: Continue as above Chronic diastolic CHF class 3: Continue with fluid restriction. Will discontinue Lasix since the patient is getting dialysis. Depression with anxiety: Overall stable. Will continue with her medications. Will limit sedating medications. Diabetes mellitus type 2, insulin-dependent: Continue with basal insulin. Will monitor and adjust appropriately. End-stage renal disease on hemodialysis: Patient gets dialysis Mondays, Wednesdays and Fridays. Case discussed at length with nephrology. Await recommendations by infectious disease. GERD: Continue with medication Hypertension: Continue with medication. May need to hold if systolic less than 120 Liver cirrhosis: Continue with above treatment plan. Pancytopenia: Overall stable but white count 1.8. Case discussed with hematology. Will provide Granix daily. If white count above 2.0 then will DC Granix. Patient may require blood transfusion if hemoglobin less than 7.0. Patient may require platelet transfusion if platelet count less than 20 and/or bleeding. Time Spent Managing Pts Care (In Minutes): 55
[2018-02-10] MEDS ORDERED: TBO-FILGRASTIM 480 MCG/0.8 ML SYR SQ SCH (11:00)
[2018-02-10] MEDS: ALBUMIN HUMAN 25% 50 ML IV SCH ×2 (11:55→12:15)
--- NOTE | 2018-02-10 14:07 | P.PN ---
Subjective Date of Service: 02/10/18 Chief Complaint: AMS/Hepatic encephalopathy mentation at baseline HD MWF at her HD facility TTsat E.coli ESBL Ertapenem on HD days Trend ammonia leuckopenia : neupogen Thrombocytopenia Physical Examination - Vital Signs Temperature: 98.1 F Blood Pressure: 109/62 Pulse: 61 Respirations: 18 Pulse Ox (%): 100 - Physical Exam General: Alert HEENT: Atraumatic Neck: Supple (Lt upper neck ecchymosis ) Respiratory: Clear to auscultation bilaterally Cardiovascular: No edema - Studies Microbiology Data (last 24 hrs): 02/05/18 20:25 Catheterized Urine [place] Count - Final >100,000 CFU/ML. 02/05/18 20:25 Catheterized Urine - Final Escherichia Coli Enterococcus Faecalis Medications List Reviewed: Yes Assessment And Plan - Current Problems (Diagnosis) (1) Hyponatremia Current Visit: Yes Status: Acute (2) Acute encephalopathy Onset Date: 12/30/17 Current Visit: No Status: Acute (3) Altered mental status Current Visit: No Status: Acute Qualifiers: Altered mental status type: disorientation Qualified Code(s): R41.0 - Disorientation, unspecified (4) Hypotension Onset Date: 12/15/15 Current Visit: No Status: Chronic (5) ESRD (end stage renal disease) on dialysis Onset Date: 10/25/17 Current Visit: No Status: Chronic - Plan Assessment And Plan: 1.End-stage renal disease. pt s course TTsat Will do MWF while hospitalized adjust meds as per RFT 2.Hyponatremia Will correct on HD Cirrhosis and hypervolemia 3.Hypotension chronic will consider Midodrine if there's [rpble, with fluid removal pt is euvolemic 3.Altered mental status secondary to hepatic encephalopathy. now at baseline Head CT -ve Ammonia 250 on admission Lactulose 4.Diabetes as by primary. 5. UTI C.coli ESBL Ertapenem on HD days 6. Chronic leuckopenia and thrombocytopenia Hold heparin at HD possibly 2/2 sepsis Abx changes plan for neupogen Physician Review Additional Text: Impression: Altered mental status secondary to toxic encephalopathy and hepatic encephalopathy UTI-E coli-ESBL Unsuccessful central line placement Chronic diastolic CHF class 3 Depression with anxiety Diabetes mellitus type 2, insulin-dependent End-stage renal disease on hemodialysis GERD Hypertension Liver cirrhosis Pancytopenia Plan: Altered mental status secondary to toxic encephalopathy and hepatic encephalopathy: This has improved with treatment of UTI and hepatic encephalopathy. Urine culture positive for E coli-ESBL and Enterococcus. Patient now on meropenem IV for UTI-ESBL and amoxicillin for enterococcus. Case discussed at length with infectious disease. Patient can be transition to Invanz 1 mg after each dialysis for 3 doses for coverage of ESBL. If this can be arranged for dialysis then the patient can possibly be discharged to the intermediate. If not patient will likely need to continue with current antibiotics-meropenem through Tuesday. Will discuss further with nephrology. Patient appears to be at her baseline level. Patient continues with lactulose and Xifaxan. Ammonia level much improved. Central line was not successfully placed yesterday. Femoral line is not preferable due to high risk of infection. UTI-E coli-ESBL and Enterococcus: Continue as above. Case discussed at length with infectious disease. Will continue with current IV meropenem and on amoxicillin. If Invanz can be arranged through dialysis then the patient can possibly be discharged back to the intermediate. Otherwise patient will likely need to continue with current antibiotic therapy through Tuesday. Unsuccessful central line placement: Continue as above Chronic diastolic CHF class 3: Continue with fluid restriction. Will discontinue Lasix since the patient is getting dialysis. Depression with anxiety: Overall stable. Will continue with her medications. Will limit sedating medications. Diabetes mellitus type 2, insulin-dependent: Continue with basal insulin. Will monitor and adjust appropriately. End-stage renal disease on hemodialysis: Patient gets dialysis Mondays, Wednesdays and Fridays. Case discussed at length with nephrology. Await recommendations by infectious disease. GERD: Continue with medication Hypertension: Continue with medication. May need to hold if systolic less than 120 Liver cirrhosis: Continue with above treatment plan. Pancytopenia: Overall stable but white count 1.8. Case discussed with hematology. Will provide Granix daily. If white count above 2.0 then will DC Granix. Patient may require blood transfusion if hemoglobin less than 7.0. Patient may require platelet transfusion if platelet count less than 20 and/or bleeding.
[2018-02-10] MEDS: LIDOCAINE 5% PATCH TOP SCH (15:20)
[2018-02-10] MEDS: AMOXICILLIN TRIHYDR 250 MG CAP PO SCH (16:40)
[2018-02-10] MEDS: FAMOTIDINE 20 MG TAB PO SCH (21:05)
[2018-02-11 06:04] LABS: Absolute Lymphocytes (CBC) 0.7 K/uL (0.7-4.9); Absolute Monocytes 0.8 K/uL (0.1-1.3); Absolute Neutrophil 11.7 K/uL (1.8-8.0); Basophils % 0.2 % (0-1.3); Eosinophils % 0.8 % (0-4.4); Hematocrit 25.7 % (36.0-45.0); Lymphocytes % 5.6 % (15.3-44.8); MCH 33.2 pg (27.0-35.0); MCV 97.6 fL (80-100); MPV 8.4 fL (7.6-11.3); Monocytes % 5.8 % (3.3-12.3); RBC Red Blood Cell Count 2.64 M/uL (3.86-4.86)
[2018-02-11 06:13] LABS: Albumin 2.9 g/dL (3.4-5.0); Phosphorus 2.9 mg/dL (2.5-4.9); Potassium 3.2 mmol/L (3.5-5.1)
[2018-02-11] MEDS ORDERED: POTASSIUM 25 MEQ EFFERV TAB PO ONE (06:32)
[2018-02-11 07:04] LABS: Anisocytosis 1+; Blood Morphology Comment NOT SEEN (NOT SEEN); Platelet Estimate DECR; Urine White Blood Cell Casts OK
[2018-02-11] MEDS: INSULIN -REGULAR HUMAN 50 UNIT/0.5 ML ML SQ SCH ×4 (07:30→20:27)
[2018-02-11] MEDS: INSULIN GLARGINE 100 UNITS/ML SQ SCH (08:00)
[2018-02-11] MEDS: LACTULOSE 20 GM/30 ML UCUP PO SCH ×4 (09:00→20:24)
[2018-02-11] MEDS: Meropenem 1,000 MG in NA CHLORIDE 0.9% 100 ML IV SCH ×2 (09:00→20:24)
[2018-02-11] MEDS: LIDOCAINE 5% PATCH TOP SCH (09:00)
[2018-02-11] MEDS: PROPRANOLOL HCL 10 MG TAB PO SCH ×2 (09:00→20:26)
[2018-02-11] MEDS: NYSTATIN PWDR 100000 UNIT/GM TOP SCH ×2 (09:00→21:00)
[2018-02-11] MEDS: ENOXAPARIN 30 MG/0.3 ML SQ SCH (09:00)
[2018-02-11] MEDS: MULTIVITAMINS,THERAPEUT 1 TAB PO SCH (09:00)
--- NOTE | 2018-02-11 09:01 | P.PN ---
Subjective Date of Service: 02/11/18 Primary Care Provider: [facility] resident Chief Complaint: AMS/Hepatic encephalopathy Subjective: Improving Physical Examination - Vital Signs Temperature: 98.1 F Blood Pressure: 101/54 Pulse: 70 Respirations: 16 Pulse Ox (%): 97 - Physical Exam General: Alert, In no apparent distress, Oriented x3, Cooperative HEENT: Atraumatic Neck: Supple Respiratory: Clear to auscultation bilaterally, Normal air movement Cardiovascular: Normal pulses, Regular rate/rhythm Gastrointestinal: Normal bowel sounds, Soft and benign, Non-distended Musculoskeletal: No erythema, No tenderness, No warmth Integumentary: No erythema, No warmth, No cyanosis Neurological: Normal speech, Normal strength at 5/5 x4 extr, Normal tone, Normal affect - Studies Microbiology Data (last 24 hrs): 02/05/18 19:20 Blood - Blood Aerobic Blood Culture - Final No growth in 5 days. 02/05/18 19:20 Blood - Blood Anaerobic Blood Culture - Final No growth in 5 days. 02/05/18 19:15 Blood - Blood Aerobic Blood Culture - Final No growth in 5 days. 02/05/18 19:15 Blood - Blood Anaerobic Blood Culture - Final No growth in 5 days. Medications List Reviewed: Yes Assessment & Plan Discharge Plan: [facility] Plan to discharge in: 48 Hours Physician Review Additional Text: Impression: Altered mental status secondary to toxic encephalopathy and hepatic encephalopathy UTI-E coli-ESBL Unsuccessful central line placement Chronic diastolic CHF class 3 Depression with anxiety Diabetes mellitus type 2, insulin-dependent End-stage renal disease on hemodialysis GERD Hypertension Liver cirrhosis Pancytopenia Plan: Altered mental status secondary to toxic encephalopathy and hepatic encephalopathy: Altered mental status has resolved. Continue current treatment for UTI. Urine culture positive for E coli-ESBL and Enterococcus. Will continue with meropenem IV for the next 2 days. Patient also on amoxicillin. Will continued medication through Tuesday. Patient can be discharged after that time. Case discussed with nephrology and infectious disease. Anticipate discharge back to the half-way after dialysis on Tuesday. UTI-E coli-ESBL and Enterococcus: Continue as above. Case discussed at length with infectious disease. Will continue with current IV meropenem and amoxicillin through Tuesday. Patient can be discharged back to the half-way after dialysis without the need for further antibiotics after Tuesday. Unsuccessful central line placement: Continue as above Chronic diastolic CHF class 3: Continue with fluid restriction. Lasix has been discontinued. Will monitor fluid intake. Depression with anxiety: Overall stable. Will continue with her medications. Will limit sedating medications. Diabetes mellitus type 2, insulin-dependent: Continue with basal insulin. Will monitor and adjust appropriately. End-stage renal disease on hemodialysis: Patient gets dialysis Mondays, Wednesdays and Fridays. Case discussed at length with nephrology. Await recommendations by infectious disease. GERD: Continue with medication Hypertension: Continue with medication. May need to hold if systolic less than 120 Liver cirrhosis: Continue with above treatment plan. Continue with lactulose and Xifaxan. Pancytopenia: Overall stable with improved white count. Will discontinue Granix. Case discussed with hematology yesterday. Will monitor hemoglobin. Patient will require transfusion if hemoglobin less than 7.0. Patient may require platelet transfusion if less than 20. Overall improved. Time Spent Managing Pts Care (In Minutes): 55
[2018-02-11] MEDS: BUPROPRION HCL S.R. 150MG TAB PO SCH ×2 (09:30→20:25)
[2018-02-11] MEDS: Rifaximin 550 MG Tab PO SCH ×2 (09:30→20:25)
[2018-02-11] MEDS: NEOMYCIN SULFATE 500 MG TAB PO SCH ×2 (09:30→20:25)
[2018-02-11] MEDS: ASCORBIC ACID 500 MG TABLET PO SCH ×2 (09:31→20:25)
[2018-02-11] MEDS: SERTRALINE HCL 50 MG TAB PO SCH (09:31)
--- NOTE | 2018-02-11 17:29 | PN ---
History: The patient doing well. No nausea. No vomiting. The patient is status post dialysis, yes terday tolerated the dialysis very well. We removed 1700. The patient had growing Enterococcus faec talib MENDOZAE. Physical Examination: General: When I saw the patient, blood pressure 101/54, pulse of 70. Afebrile. Chest: Clear to auscultation. Heart: S1, S2. Regular. Systolic murmur. Abdomen: Soft, nontender. Extremities: Trace edema. Laboratory Data: WBC 13.3, H and H 8.8/25.7, platelets of 34. Sodium 135, potassium 3.2, bicarb 25, BUN 22, creatinine 3.4, calcium of 8, phosphorus 2.9, magnesium of 2. Current Medications: The patient on its include: 1.Amoxicillin. 2.Pepcid. 3.Insulin. 4.Meropenem. Assessment And Plan: 1.End-stage renal disease. We will continue the patient on dialysis Tuesday, Tuesday, Tuesday. 2.Secondary hyperparathyroidism. No need for binder. 3.Hyponatremia, going to be corrected on dialysis. 4.Hypertension, currently low blood pressure. Hold all blood pressure medication. 5.Cirrhosis with hepatic encephalopathy, resolved. 6.Extended-spectrum beta-lactamase. Continue on meropenem. 7.Thrombocytopenia secondary to cirrhosis, stable. CHARLES Voice ID: [id number] Report ID: [id number]
[2018-02-11] MEDS ORDERED: NA CHLORIDE 0.9% 100 ML ONE (20:19)
[2018-02-11] MEDS: GABAPENTIN 100 MG CAP PO PRN (20:25)
[2018-02-11] MEDS: FAMOTIDINE 20 MG TAB PO SCH (20:26)
[2018-02-12 05:28] LABS: Absolute Monocytes 0.5 K/uL (0.1-1.3); Absolute Neutrophil 10.7 K/uL (1.8-8.0); Basophils % 0.3 % (0-1.3); Eosinophils % 1.8 % (0-4.4); Hematocrit 26.9 % (36.0-45.0); Lymphocytes % 7.7 % (15.3-44.8); MCH 33.6 pg (27.0-35.0); MCV 97.3 fL (80-100); MPV 9.6 fL (7.6-11.3); Monocytes % 4.4 % (3.3-12.3); RBC Red Blood Cell Count 2.76 M/uL (3.86-4.86)
[2018-02-12 05:43] LABS: Magnesium 2.2 mg/dL (1.8-2.4); Phosphorus 3.7 mg/dL (2.5-4.9); Potassium 3.5 mmol/L (3.5-5.1)
[2018-02-12] MEDS: INSULIN -REGULAR HUMAN 50 UNIT/0.5 ML ML SQ SCH ×4 (07:30→20:53)
[2018-02-12] MEDS: INSULIN GLARGINE 100 UNITS/ML SQ SCH (08:00)
[2018-02-12] MEDS: NYSTATIN PWDR 100000 UNIT/GM TOP SCH ×2 (09:00→20:53)
[2018-02-12] MEDS: ENOXAPARIN 30 MG/0.3 ML SQ SCH (09:00)
[2018-02-12] MEDS: LIDOCAINE 5% PATCH TOP SCH (09:00)
[2018-02-12] MEDS: PROPRANOLOL HCL 10 MG TAB PO SCH (09:00)
[2018-02-12] MEDS: POTASSIUM 25 MEQ EFFERV TAB PO ONE ×2 (09:00)
[2018-02-12] MEDS: SERTRALINE HCL 50 MG TAB PO SCH (09:00)
[2018-02-12] MEDS: Meropenem 1,000 MG in NA CHLORIDE 0.9% 100 ML IV SCH ×2 (09:00→20:50)
[2018-02-12] MEDS: LACTULOSE 20 GM/30 ML UCUP PO SCH ×3 (09:00→20:51)
[2018-02-12] MEDS: BUPROPRION HCL S.R. 150MG TAB PO SCH ×2 (09:33→20:53)
[2018-02-12] MEDS: NEOMYCIN SULFATE 500 MG TAB PO SCH ×2 (09:33→20:52)
[2018-02-12] MEDS: Rifaximin 550 MG Tab PO SCH ×2 (09:33→20:53)
[2018-02-12] MEDS: ASCORBIC ACID 500 MG TABLET PO SCH ×2 (09:34→20:53)
[2018-02-12] MEDS: MULTIVITAMINS,THERAPEUT 1 TAB PO SCH (09:34)
--- NOTE | 2018-02-12 10:00 | P.PN ---
Subjective Date of Service: 02/12/18 Primary Care Provider: [facility] Chief Complaint: AMS/Hepatic encephalopathy Subjective: Improving Physical Examination - Vital Signs Temperature: 97 F Blood Pressure: 108/61 Pulse: 72 Respirations: 18 Pulse Ox (%): 99 - Physical Exam General: Alert, In no apparent distress, Oriented x3, Cooperative HEENT: Atraumatic Neck: Supple Respiratory: Clear to auscultation bilaterally, Normal air movement Cardiovascular: Normal pulses, Regular rate/rhythm Gastrointestinal: Normal bowel sounds, Soft and benign, Non-distended, No masses , No rebound, No guarding Musculoskeletal: No erythema, No tenderness, No warmth Integumentary: Other (Bruising to the neck region.) Neurological: Normal speech, Normal strength at 5/5 x4 extr, Normal tone, Normal affect - Studies Medications List Reviewed: Yes Assessment & Plan Discharge Plan: [facility] Plan to discharge in: 24 Hours Physician Review Additional Text: Impression: Altered mental status secondary to toxic encephalopathy and hepatic encephalopathy UTI-E coli-ESBL Unsuccessful central line placement Chronic diastolic CHF class 3 Depression with anxiety Diabetes mellitus type 2, insulin-dependent End-stage renal disease on hemodialysis GERD Hypertension Liver cirrhosis Pancytopenia Plan: Altered mental status secondary to toxic encephalopathy and hepatic encephalopathy: Altered mental status has resolved. Patient at baseline. Continue current treatment for UTI. Urine culture positive for E coli-ESBL and Enterococcus. Will continue with meropenem IV for the next day. Patient will complete treatment tomorrow. Patient also on amoxicillin. Patient can be discharged tomorrow after dialysis. Patient will return to the residential. UTI-E coli-ESBL and Enterococcus: Continue as above. Case discussed at length with infectious disease. Will continue with current IV meropenem and amoxicillin through Tuesday. Patient can be discharged back to the residential after dialysis without the need for further antibiotics after Tuesday. Unsuccessful central line placement: Continue as above Chronic diastolic CHF class 3: Continue with fluid restriction. Lasix has been discontinued. Will monitor fluid intake. Depression with anxiety: Overall stable. Will continue with her medications. Will limit sedating medications. Diabetes mellitus type 2, insulin-dependent: Continue with basal insulin. Will monitor and adjust appropriately. End-stage renal disease on hemodialysis: Patient gets dialysis Mondays, Wednesdays and Fridays. Case discussed at length with nephrology. Await recommendations by infectious disease. GERD: Continue with medication Hypertension: Continue with medication. May need to hold if systolic less than 120 Liver cirrhosis: Continue with above treatment plan. Continue with lactulose and Xifaxan. Pancytopenia: Overall stable. Case discussed with hematology Tuesday. Will monitor hemoglobin. Patient will require transfusion if hemoglobin less than 7.0. Patient may require platelet transfusion if less than 20. Overall improved. Time Spent Managing Pts Care (In Minutes): 55
--- NOTE | 2018-02-12 15:14 | PN ---
Date of Progress Note: 02/12/2018 Subjective: The patient is doing well. Still sleepy. No fever. Last dialysis was on the , stephenie erated the dialysis very well. At that time, we managed to remove 1900. Objective: Vital Signs: When I saw the patient, blood pressure 108/61, pulse of 72, afebrile. Chest: Clear to auscultation. Heart: S1, S2. Regular. Abdomen: Soft, nontender. Extremities: Trace edema. Laboratory Data: WBC 12.5, H and H 9.3/26.9 with platelets of 40. Sodium 132, potassium 3.5, bicarb 24, BUN 32, creatinine 5.1, calcium 8.4, phosphorus 3.7, magnesium 2.2, albumin 3. Medications: Current medications the patient is on include: 1.Amoxicillin. 2.Meropenem. 3.Inderal 10 b.i.d. 4.Abilify. 5.Gabapentin. 6.Zoloft. 7.Lactulose. 8.Pepcid. 9.The patient also received KCl before. Assessment And Plan: 1.End-stage renal disease. Looked to me, normal volume. You can continue the patient on dialysis. The patient is going to be scheduled for dialysis tomorrow, Tuesday. To keep her schedule Tuesday, We , and Tuesday. 2.Hypertension, currently controlled, optimal. Continue to taper down. I am going to hold the Inde ral completely. 3.Anemia of chronic kidney disease. Continue Epogen for the patient. 4.Secondary hyperparathyroidism, stable. No need for binder for the time being. 5.Urinary tract infection, Escherichia coli, Enterococcus faecalis. Continue current antibiotic. We will follow up with the primary. 6.Hepatic encephalopathy, recovered back to her baseline. JAYLA/VANIA Voice ID: [id number] Report ID: [id number]
[2018-02-12] MEDS: FAMOTIDINE 20 MG TAB PO SCH (20:53)
[2018-02-13 05:50] LABS: Phosphorus 3.7 mg/dL (2.5-4.9); Potassium 3.6 mmol/L (3.5-5.1)
[2018-02-13] MEDS: INSULIN -REGULAR HUMAN 50 UNIT/0.5 ML ML SQ SCH ×4 (07:30→21:00)
[2018-02-13] MEDS: INSULIN GLARGINE 100 UNITS/ML SQ SCH (08:00)
[2018-02-13] MEDS: NYSTATIN PWDR 100000 UNIT/GM TOP SCH ×2 (09:00→21:00)
[2018-02-13] MEDS ORDERED: ARIPiprazole 5 MG TAB PO SCH (09:00)
[2018-02-13] MEDS: LIDOCAINE 5% PATCH TOP SCH (09:16)
[2018-02-13] MEDS: NEOMYCIN SULFATE 500 MG TAB PO SCH ×2 (09:17→22:32)
[2018-02-13] MEDS: Meropenem 1,000 MG in NA CHLORIDE 0.9% 100 ML IV SCH ×2 (09:17→22:29)
[2018-02-13] MEDS: Rifaximin 550 MG Tab PO SCH ×2 (09:17→22:30)
[2018-02-13] MEDS: BUPROPRION HCL S.R. 150MG TAB PO SCH ×2 (09:17→22:31)
[2018-02-13] MEDS: LACTULOSE 20 GM/30 ML UCUP PO SCH ×3 (09:18→21:00)
[2018-02-13] MEDS: ENOXAPARIN 30 MG/0.3 ML SQ SCH (09:19)
[2018-02-13] MEDS: ASCORBIC ACID 500 MG TABLET PO SCH ×2 (09:20→22:30)
[2018-02-13] MEDS: MULTIVITAMINS,THERAPEUT 1 TAB PO SCH (09:20)
[2018-02-13] MEDS: SERTRALINE HCL 50 MG TAB PO SCH (11:16)
--- NOTE | 2018-02-13 15:20 | P.DS ---
Admission Date: 02/05/18 Discharge Date: 02/13/18 Primary Care Provider: [facility] resident Disposition: TRANSFER TO [facility] Discharge Condition: GOOD Reason for Admission: AMS/Hepatic encephalopathy Consultations: Nephrology Infectious disease Surgery Procedures: Medical problem list: Altered mental status secondary to toxic encephalopathy and hepatic encephalopathy UTI-E coli-ESBL Unsuccessful central line placement Chronic diastolic CHF class 3 Depression with anxiety Diabetes mellitus type 2, insulin-dependent End-stage renal disease on hemodialysis GERD Hypertension Liver cirrhosis Pancytopenia Brief History of Present Illness: 52-year-old female presented to emergency room with altered mental status. Patient with multiple medical problems. Toxic and hepatic encephalopathy was suspected. Hospital Course: Patient presented with altered mental status secondary to toxic and hepatic encephalopathy. Patient received lactulose and Xifaxan. Patient did well during the course of her stay. Patient was found to have UTI positive for E coli-ESBL and Enterococcus. Patient had failed attempt of central line. Therefore patient remain in the hospital to continue IV and oral antibiotic therapy for her UTI. Infectious Disease was consulted and agreed with plan of care. Patient has finished her course of antibiotic therapy including meropenem and amoxicillin. No need for further antibiotics at this time. Patient will return to the long-term with her prior medications. Patient with CHF, diastolic dysfunction. Patient will continue with a 1500 cc per day fluid restriction and low-salt diet. Lasix has been discontinued as she is anuric and with end-stage renal disease on dialysis. Patient has depression with anxiety. Patient continue with her medication. Patient has diabetes mellitus type 2. Patient continue with her basal insulin. Recommendation is to maintain blood sugars less than 140 fasting and less than 200 after meals. Further adjustment can be done at the long-term. Patient has GERD. Patient continue with Protonix 40 mg 1 pill once daily. Patient has hypertension. She will continue with her medication. Medication may need to be held if systolic less than 120. Patient has liver cirrhosis. Patient continue with her medication including lactulose and Xifaxan. Patient will need to continue with bowel movements at least 3-4 a day. Compliance with medication addressed in detail. Patient with chronic pancytopenia. This can be monitored closely at dialysis. Likely related to her liver disease. Patient has end-stage renal disease on dialysis. Patient will continue with dialysis every Mondays, Wednesdays and Fridays. Vital Signs/Physical Exam: Temp Pulse Resp BP Pulse Ox 98.7 F 69 16 109/52 L 100 02/13/18 12:00 02/13/18 12:00 02/13/18 12:00 02/13/18 12:00 02/13/18 12:00 General: Alert, In no apparent distress, Oriented x3, Cooperative HEENT: Atraumatic Neck: Supple Respiratory: Clear to auscultation bilaterally, Normal air movement Cardiovascular: Normal pulses, Regular rate/rhythm Gastrointestinal: Normal bowel sounds, Soft and benign, Non-distended, No tenderness, No masses, No rebound, No guarding Musculoskeletal: No erythema, No tenderness, No warmth Integumentary: No tenderness/swelling, No erythema, No warmth, No cyanosis Neurological: Normal speech, Normal strength at 5/5 x4 extr, Normal tone, Normal affect Laboratory Data at Discharge: WBC 12.5 K/uL (4.3-10.9) H 02/12/18 05:00 Hgb 9.3 g/dL (12.0-15.0) L 02/12/18 05:00 Hct 26.9 % (36.0-45.0) L 02/12/18 05:00 Plt Count 40 K/uL (152-406) L* 02/12/18 05:00 PT 14.6 SECONDS (9.5-12.5) H 02/07/18 05:31 INR 1.23 02/07/18 05:31 APTT 41.9 SECONDS (24.3-36.9) H 02/07/18 05:31 Sodium 132 mmol/L (136-145) L 02/13/18 04:46 Potassium 3.6 mmol/L (3.5-5.1) 02/13/18 04:46 BUN 41 mg/dL (7-18) H 02/13/18 04:46 Creatinine 6.20 mg/dL (0.55-1.3) H* D 02/13/18 04:46 Glucose 97 mg/dL (74-106) 02/13/18 04:46 Phosphorus 3.7 mg/dL (2.5-4.9) 02/13/18 04:46 Magnesium 2.2 mg/dL (1.8-2.4) 02/12/18 05:00 Total Bilirubin 2.0 mg/dL (0.2-1.0) H 02/07/18 05:31 AST 74 U/L (15-37) H 02/07/18 05:31 ALT 30 U/L (12-78) 02/07/18 05:31 Alkaline Phosphatase 221 U/L (45-117) H 02/07/18 05:31 Troponin I < 0.02 ng/mL (0.0-0.045) 02/06/18 04:56 Home Medications: Acetaminophen [Tylenol] 2 tab PO Q6H PRN 01/21/18 Famotidine 20 mg PO BEDTIME 01/21/18 Insulin Detemir [Levemir] 25 unit SQ DAILY WITH BREAKFAST 01/21/18 Insulin Lispro [Admelog] 100 unit SQ SEECOM 01/21/18 Lactulose [Enulose] 30 ml PO TID 01/21/18 Neomycin 500mg 3 tab PO DAILY 01/21/18 Nystatin 100,000 unit TOP BID 01/21/18 Propranolol [Inderal*] 20 mg PO SEECOM 01/21/18 ARIPiprazole [Abilify*] 7.5 mg PO SEECOM 02/06/18 Folic Acid/Vitamin B Comp W-C [Nephro-Dulce Tablet] 1 tab PO DAILY 02/06/18 Sertraline [Zoloft*] 50 mg PO DAILY 02/06/18 Buproprion S.r. [Wellbutrin Sr*] 150 mg PO BID tab 02/13/18 Gabapentin [Neurontin*] 100 mg PO BID PRN #30 cap 02/13/18 Lidocaine 5% Patch [Lidoderm 5% Patch*] 1 patch TOP DAILY #30 patch 02/13/18 Rifaximin [Xifaxan] 550 mg PO BID #60 tablet 02/13/18 New Medications: Gabapentin [Neurontin*] 100 mg PO BID PRN #30 cap PRN Reason: Pain Lidocaine 5% Patch [Lidoderm 5% Patch*] 1 patch TOP DAILY #30 patch Rifaximin [Xifaxan] 550 mg PO BID #60 tablet Patient Discharge Instructions: 1. Patient will return to the long-term. 2. Patient presented with altered mental status secondary to toxic and hepatic encephalopathy. Patient received lactulose and Xifaxan. Patient did well during the course of her stay. Patient was found to have UTI positive for E coli-ESBL and Enterococcus. Patient had failed attempt of central line. Therefore patient remain in the hospital to continue IV and oral antibiotic therapy for her UTI. Infectious Disease was consulted and agreed with plan of care. Patient has finished her course of antibiotic therapy including meropenem and amoxicillin. No need for further antibiotics at this time. Patient will return to the long-term with her prior medications. 3. Patient with CHF, diastolic dysfunction. Patient will continue with a 1500 cc per day fluid restriction and low-salt diet. Lasix has been discontinued as she is anuric and with end-stage renal disease on dialysis. 4. Patient has depression with anxiety. Patient continue with her medication. Will need to limit benzodiazepine use. 5. Patient has diabetes mellitus type 2. Patient continue with her basal insulin. Recommendation is to maintain blood sugars less than 140 fasting and less than 200 after meals. Further adjustment can be done at the long-term. 6. Patient has GERD. Patient continue with Pepcid 1 pill once daily. 7. Patient has hypertension. She will continue with her medication-Inderal. Medication may need to be held if systolic less than 120. 8. Patient has liver cirrhosis. Patient continue with her medication including lactulose and Xifaxan. Patient will need to continue with bowel movements at least 3-4 a day. Compliance with medication addressed in detail. 9. Patient with chronic pancytopenia. This can be monitored closely at dialysis. Likely related to her liver disease. 10. Patient with history of diabetic neuropathy and chronic pain. Patient will continue with Neurontin as needed. Recommendation on no use of narcotic medication. 11. Patient with end -stage renal disease on dialysis. Patient will continue with dialysis every Mondays, Wednesdays and Fridays. Diet: Renal Activity: Fall precautions Time spent managing pt's care (in minutes): 55
[2018-02-13] MEDS: AMOXICILLIN TRIHYDR 250 MG CAP PO SCH (17:00)
[2018-02-13] MEDS ORDERED: NA CHLORIDE 0.9% 1,000 ML IV PRN (18:48)
[2018-02-13] MEDS: ALBUMIN HUMAN 25% 50 ML IV SCH (18:59)
[2018-02-13] MEDS ORDERED: EPOETIN ALFA 10,000 UNIT/ML VIAL IV SCH (19:00)
[2018-02-13] MEDS: FAMOTIDINE 20 MG TAB PO SCH (22:30)
[2018-02-13] MEDS: GABAPENTIN 100 MG CAP PO PRN (22:30)
--- NOTE | 2018-02-14 02:50 | PN ---
Date of Progress Note: 02/13/2018 Chief Complaint: End-stage renal disease, fluid overload History Of Present Illness: The patient has history of hypertension, secondary hyperparathyroidism. She has been treated for hepatic encephalopathy as well as is on antibiotics for urinary tract infec tion related to E coli and Enterococcus faecalis. Review of Systems: The patient is lethargic. Denies chest pain, palpitation. She is arousable and follows commands. Physical Examination: Lungs: Clear to auscultation bilaterally. Heart: S1, S2. Abdomen: Soft, benign, obese. Extremities: Edema present in both legs. Laboratory Data: Potassium 3.5, sodium 132, bicarbonate 24, BUN 32, creatinine 5.1, WBC 12.5, magnes ium 2.2, albumin 3.0. Impression And Plan: 1.End-stage renal disease. Continue dialysis. Today, the patient will have dialysis with ultrafilt ration. Continue dialysis for Tuesday, Tuesday, Tuesday schedule. Continue p.o. fluid restriction a nd low-potassium diet. Adjust dialysis parameters accordingly. 2.Hypertension. Continue on medication and hold blood pressure medication because systolic blood pr essure is below 110. 3.Anemia of chronic kidney disease. Continue Epogen. 4.Hyperparathyroidism, binders on hold. Phosphorus level is controlled. 5.Urinary tract infection. Continue antibiotics. Hepatic encephalopathy. Monitor ammonia. Adjust treatment. LINH/VANIA Voice ID: [id number] Report ID: [id number]
[2018-02-14] MEDS: INSULIN -REGULAR HUMAN 50 UNIT/0.5 ML ML SQ SCH ×2 (07:30→11:30)
[2018-02-14] MEDS: INSULIN GLARGINE 100 UNITS/ML SQ SCH (08:00)
[2018-02-14 08:23] VITALS: BP 102/52; TEMP 97.6
[2018-02-14 08:51] LABS: Potassium 3.8 mmol/L (3.5-5.1)
[2018-02-14] MEDS: ASCORBIC ACID 500 MG TABLET PO SCH ×2 (09:00→09:28)
[2018-02-14] MEDS: NYSTATIN PWDR 100000 UNIT/GM TOP SCH (09:00)
[2018-02-14] MEDS: Meropenem 1,000 MG in NA CHLORIDE 0.9% 100 ML IV SCH (09:00)
[2018-02-14] MEDS: LACTULOSE 20 GM/30 ML UCUP PO SCH ×2 (09:00→09:27)
[2018-02-14] MEDS: ENOXAPARIN 30 MG/0.3 ML SQ SCH (09:00)
[2018-02-14] MEDS: MULTIVITAMINS,THERAPEUT 1 TAB PO SCH (09:28)
[2018-02-14] MEDS: NEOMYCIN SULFATE 500 MG TAB PO SCH (09:28)
[2018-02-14] MEDS: SERTRALINE HCL 50 MG TAB PO SCH (09:28)
[2018-02-14] MEDS: BUPROPRION HCL S.R. 150MG TAB PO SCH (09:28)
[2018-02-14] MEDS: LIDOCAINE 5% PATCH TOP SCH (09:29)
[2018-02-14] MEDS: Rifaximin 550 MG Tab PO SCH (09:29)
[2018-02-14 11:50] VITALS: O2SAT 97
--- NOTE | 2018-02-14 14:00 | P.PN ---
Subjective Date of Service: 02/14/18 Primary Care Provider: [facility] resident Chief Complaint: AMS/Hepatic encephalopathy Patient seen and examined at bedside with RN. Chart reviewed. The patient was discharged to [facility] at age however this morning patient stated that she does not want to [facility] home will like to go back to [facility]. Clinicals has been sent to [facility] this time Review of Systems 10-point ROS is otherwise unremarkable Physical Examination - Vital Signs Temperature: 97.6 F Blood Pressure: 102/52 Pulse: 66 Respirations: 18 Pulse Ox (%): 97 - Physical Exam General: Alert, In no apparent distress HEENT: Atraumatic, PERRLA, EOMI Neck: Supple, JVD not distended Respiratory: Clear to auscultation bilaterally, Normal air movement Cardiovascular: Regular rate/rhythm, Normal S1 S2 Gastrointestinal: Normal bowel sounds, No tenderness Musculoskeletal: No tenderness Integumentary: No rashes Neurological: Normal speech, Normal tone, Normal affect Lymphatics: No axilla or inguinal lymphadenopathy - Studies Medications List Reviewed: Yes Assessment And Plan - Current Problems (Diagnosis) (1) Altered mental status Current Visit: No Status: Resolved Qualifiers: Altered mental status type: disorientation Qualified Code(s): R41.0 - Disorientation, unspecified (2) UTI (urinary tract infection) Onset Date: 06/07/16 Current Visit: No Status: Resolved Qualifiers: Urinary tract infection type: acute cystitis Hematuria presence: without hematuria Qualified Code(s): N30.00 - Acute cystitis without hematuria (3) Hepatic encephalopathy Onset Date: 03/24/16 Current Visit: No Status: Resolved (4) Congestive heart failure with LV diastolic dysfunction, NYHA class 3 Onset Date: 06/07/16 Current Visit: No Status: Chronic (5) Depression with anxiety Onset Date: 06/07/16 Current Visit: No Status: Chronic (6) Diabetes mellitus Onset Date: 09/01/17 Current Visit: No Status: Chronic Qualifiers: Diabetes mellitus type: type 2 Diabetes mellitus fdc insulin use: without fdc use Diabetes mellitus complication status: without complication Qualified Code(s): E11.9 - Type 2 diabetes mellitus without complications (7) ESRD (end stage renal disease) on dialysis Onset Date: 10/25/17 Current Visit: No Status: Chronic (8) GERD (gastroesophageal reflux disease) Onset Date: 09/27/16 Current Visit: No Status: Chronic Qualifiers: Esophagitis presence: without esophagitis Qualified Code(s): K21.9 - Gastro -esophageal reflux disease without esophagitis (9) HTN (hypertension) Onset Date: 09/27/16 Current Visit: No Status: Chronic Qualifiers: Hypertension type: essential hypertension Qualified Code(s): I10 - Essential (primary) hypertension (10) Liver cirrhosis Onset Date: 02/16/16 Current Visit: No Status: Chronic Qualifiers: (11) Pancytopenia Onset Date: 11/24/17 Current Visit: No Status: Chronic Discharge Plan: Long-Term Plan to discharge in: 24 Hours - Code Status/Comfort Care Code Status Assessed: Yes Physician Review Additional Text: Plan: Altered mental status secondary to toxic encephalopathy and hepatic encephalopathy: -Altered mental status has resolved. Patient at baseline. UTI-E coli-ESBL and Enterococcus: -Case discussed at length with infectious disease. Finish treatment with meropenem and amoxicillin Chronic diastolic CHF class 3: -Continue with fluid restriction. Lasix has been discontinued. Will monitor fluid intake. Depression with anxiety: -Overall stable. Will continue with her medications. Will limit sedating medications. Diabetes mellitus type 2, insulin-dependent: -Continue with basal insulin. Will monitor and adjust appropriately. End-stage renal disease on hemodialysis: -Patient gets dialysis Mondays, Wednesdays and Fridays. Case discussed at length with nephrology. GERD: -Continue with medication Hypertension: - Continue with medication. May need to hold if systolic less than 120 Liver cirrhosis: -Continue with above treatment plan. Continue with lactulose and Xifaxan. Pancytopenia: -Overall stable. Disposition: Pending placement at [facility] at This time Critical Care: No
--- NOTE | 2018-02-15 02:41 | PN ---
Date of Progress Note: 02/14/2018 Subjective: The patient was admitted with altered mental status, hepatic encephalopathy, found to novoa ve UTI, treated, recovered. The patient status post dialysis yesterday, tolerated the dialysis. Objective: Vital Signs: Blood pressure 102/52, pulse of 62. Chest: Clear to auscultation. Heart: S1, S2 regular. Abdomen: Soft, nontender. Extremities: No edema. Laboratory Data: WBC 12.5, H and H 9.3/26.9. Sodium 137, potassium 3.8, bicarb 26, BUN 24, creatini ne 4.3, calcium 8.2. Current Medications: The patient on include Abilify, Pepcid, Epogen, insulin, meropenem, Zofran, B c omplex. Assessment And Plan: 1.End-stage renal disease. Normal volume currently. Continue dialysis Tuesday, Tuesday, Tuesday. 2.Secondary hyperparathyroidism, stable. 3.Anemia of chronic kidney disease. Continue Epogen. 4.Hepatic encephalopathy, resolved. 5.Urinary tract infection, status post treatment. We will follow up with the primary. The patient cleared from the renal standpoint for discharge planning. JAYLA/VANIA Voice ID: [id number] Report ID: [id number]
== END 2018-02-14 14:03 | DRG 441 ==
LOC: ER 18:24 → ERHOLD 23:01 → 2ND 02-06 02:14
PROVIDERS: ADMIT Hospitalist; ATTEND Family Medicine
PROC: 5A1D70Z Performance of Urinary Filtration, Intermittent, Less than 6 Hours Per Day (ICD-10-PCS; 2018-02-06)
PROC: 5A1D70Z Performance of Urinary Filtration, Intermittent, Less than 6 Hours Per Day (ICD-10-PCS; 2018-02-08)
PROC: 05JY3ZZ Inspection of Upper Vein, Percutaneous Approach (ICD-10-PCS; 2018-02-09)
PROC: 30233R1 Transfusion of Nonautologous Platelets into Peripheral Vein, Percutaneous Approach (ICD-10-PCS; principal; 2018-02-09 07:30)
PROC: 5A1D70Z Performance of Urinary Filtration, Intermittent, Less than 6 Hours Per Day (ICD-10-PCS; 2018-02-10)
PROC: 5A1D70Z Performance of Urinary Filtration, Intermittent, Less than 6 Hours Per Day (ICD-10-PCS; 2018-02-13)
DX: K72.90 Hepatic failure, unspecified without coma (principal); G92 Toxic encephalopathy; N18.6 End stage renal disease; D61.818 Other pancytopenia; I13.2 Hypertensive heart and chronic kidney disease with heart failure and with stage 5 chronic kidney disease, or end stage renal disease; I50.32 Chronic diastolic (congestive) heart failure; E87.1 Hypo-osmolality and hyponatremia; N30.00 Acute cystitis without hematuria; N25.81 Secondary hyperparathyroidism of renal origin; B96.20 Unspecified Escherichia coli [E. coli] as the cause of diseases classified elsewhere; F32.9 Major depressive disorder, single episode, unspecified; F41.9 Anxiety disorder, unspecified; K21.9 Gastro-esophageal reflux disease without esophagitis; K74.60 Unspecified cirrhosis of liver; B95.2 Enterococcus as the cause of diseases classified elsewhere; E11.22 Type 2 diabetes mellitus with diabetic chronic kidney disease; Z99.2 Dependence on renal dialysis; Z79.4 Long term (current) use of insulin; E03.9 Hypothyroidism, unspecified; B18.2 Chronic viral hepatitis C; I95.89 Other hypotension; E11.40 Type 2 diabetes mellitus with diabetic neuropathy, unspecified; E11.21 Type 2 diabetes mellitus with diabetic nephropathy; E87.70 Fluid overload, unspecified; D63.1 Anemia in chronic kidney disease; E87.6 Hypokalemia; D72.818 Other decreased white blood cell count; D69.6 Thrombocytopenia, unspecified
CPT/HCPCS: 36415; 70450; 71045; 72040; 72070; 72100; 76000; 76770; 80048; 80053; 80069; 80076; 81003; 81015; 81025; 82140; 82962; 83735; 83880; 84100; 84132; 84439; 84443; 84484; 85025; 85049; 85610; 85730; 86900; 86901; 87040; 87077; 87086; 87088; 87186; 90935; 93005; 96365; 96366; 96368; 97163; 99285; J0690; J0696; J1446; J1644; J1650; J2250; J3010; J7030; P9035; P9047; Q4081

== ENCOUNTER 2018-03-08 16:15 | Emergency (ER) | payer OTHER ==
--- OUTSIDE RECORDS SUMMARY | 2018-03-08 16:17 | XMS REPORT | Summary of Care ---
:1965 Author Name KAELYN VILLAGOMEZ N.P. Address [facility] Unavailable , Care Team Providers Name Role Phone PATRICIA CABALLERO M.D. Unavailable Unavailable Unavailable Unavailable Unavailable Functional Status Name Dates Details Functional status health issues are not documented Status: Name Dates Details Cognitive status health issues are not documented Status: Problems Name Dates Details End stage renal disease (585.6, N18.6) Status: Active Diabetes (250.00, E11.9) Status: Active Medications Name Dates Details Abilify TABS Refills: 0 Active Nepro Oral Liquid Refills: 0 Active Ascorbic Acid TABS Refills: 0 Active Pepcid AC TABS Refills: 0 Active Nystatin POWD Refills: 0 Active HumaLOG SOLN Refills: 0 Active Propranolol HCl TABS Refills: 0 Active Lactulose SOLN Refills: 0 Active Levemir SOLN Refills: 0 Active Wellbutrin TABS Refills: 0 Active Liuwewxp-Auhzwkzew-Ymhouqjbhv OINT Refills: 0 Active Gabapentin TABS Refills: 0 Active Multivitamins TABS Refills: 0 Active Sodium Bicarbonate TABS Refills: 0 Active Allergies and Adverse Reactions Name Dates Details No Known Drug Allergies (Allergy) Status: Active Past Medical History Name Dates Details History of anemia (V12.3, Z86.2) Status: Resolved History of Chronic GERD (530.81, K21.9) Status: Resolved History of depression (V11.8, Z86.59) Status: Resolved History of hepatitis C virus infection (V12.09, Z86.19) Status: Resolved History of hypertension (V12.59, Z86.79) Status: Resolved History of hypothyroidism (V12.29, Z86.39) Status: Resolved History of peptic ulcer (V12.71, Z87.11) Status: Resolved Procedures Procedure Dates Details CVRAD - Bilateral [place] Mapping - [id number] Date: 07-Mar-2018 History of Section Completed History of PTCA Completed History of Tonsillectomy Completed Immunization Name Dates Details Immunizations not documented Family History Name Dates Details Family history of cardiac disorder (V17.49, Z82.49) Status: Active Name Dates Details Family history of cardiac disorder (V17.49, Z82.49) Status: Active Social History Name Dates Details - Status: Name Dates Details Never smoker Vital Signs Date Test Result Details No Known Vitals to report Results Date Description Value Details Results not documented Plan of Care Name Dates Details Planned Observations Planned Goals not documented Planned Encounters Appointment; PATRICIA CABALLERO M.D. On: 02-May-2018 10:15 Interventions Provided InstructionsPatient Specific Education Given; Done: 07 Mar 2018PlanI evaluated Ms. Brice today for ESRD and need for permanent dialysis access.Will proceed with scheduling her for a [place] [facility] Vein Mapping.And, schedule for Creation of a LUE AVF. The procedure, risks and potential complications were reviewed with verbalized understanding. Instructions Name Dates Details Instructions not documented Encounters Appointment; PATRICIA CABALLERO M.D. On: 07-Mar-2018 8:00 Encounter Diagnosis: Problem not documented
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
[2018-03-08] MEDS ORDERED: HYDROCODONE/APAP 10/325 TAB ONE (17:28)
--- NOTE | 2018-03-08 19:32 | RAD REPORT ---
EXAM DESCRIPTION: RAD - Knee Right 3 View - 03/08/2018 7:17 pm CLINICAL HISTORY: Right knee pain status post fall FINDINGS: Large hematoma is present within the anterior soft tissues of the knee. Calcification adjacent to the distal medial right femur likely is secondary to old trauma. No acute fracture or dislocation is seen. . If the patient continues have symptoms to suggest an occult fracture, ligamentous or meniscal injury then an MRI would be recommended.
--- NOTE | 2018-03-08 19:33 | EDPHYS ---
Physician Documentation [facility] Name: Ernestina Mackay Age: 52 yrs Sex: Female : 1965 Arrival Date: 03/08/2018 Time: 16:22 Bed 18 Private MD: ED Physician Roel Barnes HPI: 03/08 16:33 This 52 yrs old Female presents to ER via EMS with complaints of Fall Injury. snw 16:33 Details of fall: The patient fell from an upright position, while standing. Onset: The snw symptoms/episode began/occurred suddenly, just prior to arrival. Associated injuries: The patient sustained injury to the head, contusion, laceration, tenderness. Severity of symptoms: At their worst the symptoms were moderate. The patient has experienced similar episodes in the past. It is unknown whether or not the patient has recently seen a physician. pt had just finished dialysis and was getting post therapy weight, she states it happened quickly and she fell forward and struck her face, no LOC. 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 jl7 Historical: - Allergies: 16:39 NKDA; ch - Home Meds: 16:39 Abilify 5 mg oral tab 1 tab every tuesday [Active]; neomycin 500 mg Oral tab 3 tabs ch daily [Active]; Pepcid 20 mg Oral tab 1 tab once daily [Active]; Nepro Carb Steady 0.08-1.80 gram-kcal/mL oral liqd [Active]; gabapentin 100 mg oral cap 1 caps twice a day [Active]; Humalog sliding scale Sub-Q twice a day [Active]; propranolol 10 mg oral tab 1 tab twice a day [Active]; lactulose 10 gram/15 mL (15 mL) Oral soln 30 mL 30 Ml by mouth three times a day on tuesday, tuesday, , and tuesday due to cirrhosis [Active]; Wellbutrin SR 150 mg Oral TbER 1 tab 2 times per day [Active]; Levemir 100 unit/mL subcutaneous soln 25 Units SQ every morning for Type 2 Diabetes Mellitus [Active]; Zoloft 50 mg Oral tab 1 tab once daily [Active]; meclizine 12.5 mg Oral tab 2 tabs 2 times per day [Active]; - PMHx: 16:39 Anxiety; Cellulitis; CHF; Chronic pain; Cirrhosis; Depression; Diabetes - NIDDM; ch Hepatitis; Hypertension; insomnia; Dialysis; Anemia; - Social history:: Smoking status: Patient/guardian denies using tobacco. - Immunization history: Last tetanus immunization: < 5 years ago. - Ebola Screening: : No symptoms or risks identified at this time. ROS: 16:29 Constitutional: Negative for fever, chills, and weight loss, Eyes: Negative for injury, snw pain, redness, and discharge, ENT: Negative for injury, pain, and discharge, Neck: Negative for injury, pain, and swelling, Cardiovascular: Negative for chest pain, palpitations, and edema, Respiratory: Negative for shortness of breath, cough, wheezing, and pleuritic chest pain, Abdomen/GI: Negative for abdominal pain, nausea, vomiting, diarrhea, and constipation, Back: Negative for injury and pain, : Negative for injury, bleeding, discharge, and swelling, MS/Extremity: Negative for injury and deformity, Skin: Negative for injury, rash, and discoloration. 16:29 Neuro: Positive for near syncope, post dialysis, no LOC. Exam: 16:29 Head/Face: Normocephalic, atraumatic. Eyes: Pupils equal round and reactive to light, snw extra-ocular motions intact. Lids and lashes normal. Conjunctiva and sclera are non-icteric and not injected. Cornea within normal limits. Periorbital areas with no swelling, redness, or edema. ENT: Nares patent. No nasal discharge, no septal abnormalities noted. Tympanic membranes are normal and external auditory canals are clear. Oropharynx with no redness, swelling, or masses, exudates, or evidence of obstruction, uvula midline. Mucous membranes moist. Neck: Trachea midline, no thyromegaly or masses palpated, and no cervical lymphadenopathy. Supple, full range of motion without nuchal rigidity, or vertebral point tenderness. No Meningismus. 16:29 Cardiovascular: Regular rate and rhythm with a normal S1 and S2. No gallops, murmurs, or rubs. Normal PMI, no JVD. No pulse deficits. Respiratory: Lungs have equal breath sounds bilaterally, clear to auscultation and percussion. No rales, rhonchi or wheezes noted. No increased work of breathing, no retractions or nasal flaring. Abdomen/GI: Soft, non-tender, with normal bowel sounds. No distension or tympany. No guarding or rebound. No evidence of tenderness throughout. Back: No spinal tenderness. No costovertebral tenderness. Full range of motion. MS/ Extremity: Pulses equal, no cyanosis. Neurovascular intact. Full, normal range of motion. Neuro: Awake and alert, GCS 15, oriented to person, place, time, and situation. Cranial nerves II-XII grossly intact. Motor strength 5/5 in all extremities. Sensory grossly intact. Cerebellar exam normal. Normal gait. Psych: Awake, alert, with orientation to person, place and time. Behavior, mood, and affect are within normal limits. 16:29 Constitutional: The patient appears alert, awake, uncomfortable. 16:29 Chest/axilla: Inspection: ecchymosis, that is moderate, of the anterior aspect of left upper chest old, dialysis cath to right chest wall, Palpation: no acute changes. 16:29 Skin: Appearance: ecchymosis, noted on the, anterior aspect of left upper chest, right mandible, bilateral arms/legs (mostly old bruising), right mandible area from most recent fall lighter captain. Vital Signs: 16:25 BP 120 / 58; Pulse 117; Resp 16 S; Temp 97.8(O); Pulse Ox 99% on R/A; Weight 127.01 kg jl7 (R); Height 5 ft. 6 in. (167.64 cm) (R); 16:55 BP 121 / 75; Pulse 75; Resp 16; Pulse Ox 98% ; jl7 18:00 BP 124 / 74; Pulse 76; Resp 16 S; Pulse Ox 98% on R/A; jl7 19:14 BP 123 / 85; Pulse 58; Resp 16; Pulse Ox 98% on R/A; mt 21:02 BP 132 / 72; Pulse 59; Resp 16 S; Pulse Ox 99% on R/A; jd3 21:28 BP 112 / 55; Pulse 64; Resp 16; Pulse Ox 95% on R/A; mt 23:19 Pulse 65; Resp 18 S; Pulse Ox 99% on R/A; jd3 16:25 Body Mass Index 45.19 (127.01 kg, 167.64 cm) jl7 [place] Coma Score: 16:25 Eye Response: spontaneous(4). Verbal Response: oriented(5). Motor Response: obeys jl7 commands(6). Total: 15. 16:55 Eye Response: spontaneous(4). Verbal Response: oriented(5). Motor Response: obeys jl7 commands(6). Total: 15. 18:00 Eye Response: spontaneous(4). Verbal Response: oriented(5). Motor Response: obeys jl7 commands(6). Total: 15. Trauma Score (Adult): 16:25 Eye Response: spontaneous(1); Verbal Response: oriented(1); Motor Response: obeys jl7 commands(2); Systolic BP: > 89 mm Hg(4); Respiratory Rate: 10 to 29 per min(4); Ariane Score: 15; Trauma Score: 12 MDM: 16:24 Patient medically screened. snw 19:06 Data reviewed: vital signs, nurses notes. Data interpreted: Pulse oximetry: on room air snw is 99 %. Counseling: I had a detailed discussion with the patient and/or guardian regarding: the historical points, exam findings, and any diagnostic results supporting the discharge/admit diagnosis, radiology results. Awaiting: X-ray results, awaiting x-ray of knee x 2 hours. 03/08 16:29 Order name: CT Traumagram (Head C Spine CAP wo con); Complete Time: 16:58 snw 03/08 17:08 Order name: Knee Right 3 View XRAY; Complete Time: 19:34 snw 03/08 17:01 Order name: Misc. Order; Complete Time: 18:02 snw Administered Medications: 17:30 Drug: [place] 10 mg-325 mg 1 tabs Route: PO; jl7 21:03 Follow up: Response: No adverse reaction jd3 Disposition: 03/09 13:57 Co-signature as Attending Physician, Roel Barnes MD I agree with the assessment and kdr plan of care. Disposition: 03/08/18 19:32 Discharged to Home. Impression: Right knee hematoma, Syncope and collapse, Unspecified injury of face and head. - Condition is Stable. - Discharge Instructions: Facial or Scalp Contusion, Head Injury, Adult, Syncope. - Medication Reconciliation Form, Thank You Letter, Antibiotic Education, Prescription Opioid Use, SBAR form form. - Follow up: Private Physician; When: 1 - 2 days; Reason: Recheck today's complaints, Continuance of care, Re-evaluation by your physician. Follow up: Emergency Department; When: As needed; Reason: Worsening of condition. Signatures: Dispatcher [employer] Lori Stephens, RN RN Roel Stewart MD MD [facility] Xochitl Brady, HYGIENE TEACHER-C HYGIENE TEACHER-Csnw Tana Avendaño, RN RN jl7 Tawanda Beaulieu RN RN jd3 Corrections: (The following items were deleted from the chart) 03/08 23:20 19:32 03/08/2018 19:32 Discharged to Home. Impression: Right knee hematoma; Syncope and jd3 collapse; Unspecified injury of face and head. Condition is Stable. Discharge Instructions: Facial or Scalp Contusion, Head Injury, Adult, Syncope. Forms are Medication Reconciliation Form, Thank You Letter, Antibiotic Education, Prescription Opioid Use. Follow up: Private Physician; When: 1 - 2 days; Reason: Recheck today's complaints, Continuance of care, Re-evaluation by your physician. Follow up: Emergency Department; When: As needed; Reason: Worsening of condition. snw
--- NOTE | 2018-03-08 19:33 | ER ---
Nurse's Notes [facility] Name: Ernestina Mackay Age: 52 yrs Sex: Female : 1965 Arrival Date: 03/08/2018 Time: 16:22 Bed 18 Private MD: Diagnosis: Right knee hematoma;Syncope and collapse;Unspecified injury of face and head Presentation: 03/08 16:22 Presenting complaint: EMS states: pt fell after dialysis, hit face on the bar of the weigh scale, then fipped on her way down landing on the back r head. c/o pain to head neck, face, rubia knees, L wrist. denies loc. Care prior to arrival: None. Mechanism of Injury: Fall from standing position. Trauma event details: Injury occurred in the [facility], Injury occurred: in a public building. Injury occurred: March 08, 2018 Injury occurred at: 15:40. 16:22 Acuity: TOM 3 16:22 Method Of Arrival: EMS: [facility] 16:37 Transition of care: patient was received from another setting of care (ambulatory [facility]), [facility]. Onset of symptoms was March 08, 2018. Risk Assessment: Do you want to hurt yourself or someone else? Patient reports no desire to harm self or others. Initial Sepsis Screen: Does the patient meet any 2 criteria? No. Patient's initial sepsis screen is negative. Does the patient have a suspected source of infection? No. Patient's initial sepsis screen is negative. 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 [facility] Trauma Activation: Alert Physician: ED Physician; Name: ; Notified At: ; Arrived At: Physician: General Surgeon; Name: ; Notified At: ; Arrived At: Physician: Radiology; Name: ; Notified At: ; Arrived At: Physician: Respiratory; Name: ; Notified At: ; Arrived At: Physician: Lab; Name: ; Notified At: ; Arrived At: Historical: - Allergies: 16:39 NKDA; ch - Home Meds: 16:39 Abilify 5 mg oral tab 1 tab every tuesday [Active]; neomycin 500 mg Oral tab 3 tabs ch daily [Active]; Pepcid 20 mg Oral tab 1 tab once daily [Active]; Nepro Carb Steady 0.08-1.80 gram-kcal/mL oral liqd [Active]; gabapentin 100 mg oral cap 1 caps twice a day [Active]; Humalog sliding scale Sub-Q twice a day [Active]; propranolol 10 mg oral tab 1 tab twice a day [Active]; lactulose 10 gram/15 mL (15 mL) Oral soln 30 mL 30 Ml by mouth three times a day on tuesday, tuesday, , and tuesday due to cirrhosis [Active]; Wellbutrin SR 150 mg Oral TbER 1 tab 2 times per day [Active]; Levemir 100 unit/mL subcutaneous soln 25 Units SQ every morning for Type 2 Diabetes Mellitus [Active]; Zoloft 50 mg Oral tab 1 tab once daily [Active]; meclizine 12.5 mg Oral tab 2 tabs 2 times per day [Active]; - PMHx: 16:39 Anxiety; Cellulitis; CHF; Chronic pain; Cirrhosis; Depression; Diabetes - NIDDM; ch Hepatitis; Hypertension; insomnia; Dialysis; Anemia; - Social history:: Smoking status: Patient/guardian denies using tobacco. - Immunization history: Last tetanus immunization: < 5 years ago. - Ebola Screening: : No symptoms or risks identified at this time. Screenin:25 Abuse screen: Denies threats or abuse. Denies injuries from another. Tuberculosis jl7 screening: No symptoms or risk factors identified. 16:30 Fall Risk Fall in past 12 months (25 points). Secondary diagnosis (15 points) impaired jl7 mobility, No IV (0 pts). Ambulatory Aid- Crutches/Cane/Walker (15 pts). Gait- Weak (10 pts.). Mental Status- Overestimates/Forgets Limitations (15 pts.). Total Montes Fall Scale indicates High Risk Score (45 or more points). Fall prevention measures have been instituted. Side Rails Up X 2 Placed Close to Nursing Station Frequent Obs/Assessments Occuring Family Present and informed to notify staff if the need to leave the bedside As available patient and family educated on Fall Prevention Program and Strategies. 16:30 Nutritional screening: No deficits noted. jl7 Primary Survey: 16:22 A: Airway: patent. Breathing/Chest: Respiratory pattern: regular, Respiratory effort: jl7 spontaneous, unlabored, Breath sounds: clear, bilaterally. Chest inspection: symmetrical rise and fall of the chest. Circulation: Heart tones present. Skin color: pink. Disability Alert. 16:35 Reassessment Breathing/Chest Respiratory pattern Regular Respiratory effort Spontaneous jl7 Unlabored Breath sounds Clear Chest inspection Symmetrical Circulation Heart tones Present Color [place] Disability Alert. Assessment: 16:22 General: Appears in no apparent distress. uncomfortable, Behavior is calm, cooperative, ch appropriate for age. 19:00 Reassessment: Patient appears in no apparent distress at this time. No changes from jd3 previously documented assessment. Patient and/or family updated on plan of care and expected duration. Pain level reassessed. Patient is alert, oriented x 3, equal unlabored respirations, skin warm/dry/pink. 19:00 Pain: Complains of pain in right knee. jd3 20:00 Reassessment: Patient appears in no apparent distress at this time. No changes from d3 previously documented assessment. Patient and/or family updated on plan of care and expected duration. Pain level reassessed. Patient is alert, oriented x 3, equal unlabored respirations, skin warm/dry/pink. 20:58 Reassessment: Patient appears in no apparent distress at this time. No changes from jd3 previously documented assessment. Patient and/or family updated on plan of care and expected duration. Pain level reassessed. Patient is alert, oriented x 3, equal unlabored respirations, skin warm/dry/pink. report given to Carmen FOUNTAIN at [facility]. awaiting transportation. 22:30 Reassessment: Patient appears in no apparent distress at this time. No changes from jd3 previously documented assessment. Patient and/or family updated on plan of care and expected duration. Pain level reassessed. Patient is alert, oriented x 3, equal unlabored respirations, skin warm/dry/pink. 23:17 Reassessment: Patient appears in no apparent distress at this time. No changes from jd3 previously documented assessment. Patient and/or family updated on plan of care and expected duration. Pain level reassessed. Patient is alert, oriented x 3, equal unlabored respirations, skin warm/dry/pink. Vital Signs: 16:25 BP 120 / 58; Pulse 117; Resp 16 S; Temp 97.8(O); Pulse Ox 99% on R/A; Weight 127.01 kg jl7 (R); Height 5 ft. 6 in. (167.64 cm) (R); 16:55 BP 121 / 75; Pulse 75; Resp 16; Pulse Ox 98% ; jl7 18:00 BP 124 / 74; Pulse 76; Resp 16 S; Pulse Ox 98% on R/A; jl7 19:14 BP 123 / 85; Pulse 58; Resp 16; Pulse Ox 98% on R/A; mt 21:02 BP 132 / 72; Pulse 59; Resp 16 S; Pulse Ox 99% on R/A; jd3 21:28 BP 112 / 55; Pulse 64; Resp 16; Pulse Ox 95% on R/A; mt 23:19 Pulse 65; Resp 18 S; Pulse Ox 99% on R/A; jd3 16:25 Body Mass Index 45.19 (127.01 kg, 167.64 cm) jl7 [place] Coma Score: 16:25 Eye Response: spontaneous(4). Verbal Response: oriented(5). Motor Response: obeys jl7 commands(6). Total: 15. 16:55 Eye Response: spontaneous(4). Verbal Response: oriented(5). Motor Response: obeys jl7 commands(6). Total: 15. 18:00 Eye Response: spontaneous(4). Verbal Response: oriented(5). Motor Response: obeys jl7 commands(6). Total: 15. Trauma Score (Adult): 16:25 Eye Response: spontaneous(1); Verbal Response: oriented(1); Motor Response: obeys jl7 commands(2); Systolic BP: > 89 mm Hg(4); Respiratory Rate: 10 to 29 per min(4); [place] Score: 15; Trauma Score: 12 ED Course: 16:22 Patient arrived in ED. 16:23 [facility]ochitl Brady FNP-C [facility]. snw 16:23 Roel Barnes MD is Attending Physician. snw 16:24 Tana Avendaño RN is Primary Nurse. jl7 16:25 Triage completed. 16:25 Patient has correct armband on for positive identification. Placed in gown. Bed in low jl7 position. Call light in reach. Side rails up X2. 16:25 Patient maintains SpO2 saturation greater than 95% on room air. Thermoregulation: warm jl7 blanket given to patient. 16:30 Arm band placed on right wrist. jl7 16:[address] via stretcher. nj 16:39 CT Traumagram (Head C Spine CAP wo con) In Process Unspecified. EDMS 19:18 Knee Right 3 View XRAY In Process Unspecified. EDMS 19:32 Primary Nurse role handed off by Tana Avendaño RN jl7 19:35 Wound care: to abrasion, located on right jaw was cleaned with soap and water, dressed jl with 4X4s, hemostat, Patient tolerated well. 19:46 Tawanda Beaulieu, RN is Primary Nurse. jd3 21:01 No provider procedures requiring assistance completed. Patient did not have IV access jd3 during this emergency room visit. Administered Medications: 17:30 Drug: [place] 10 mg-325 mg 1 tabs Route: PO; jl7 21:03 Follow up: Response: No adverse reaction jd3 Intake: 16:39 PO: 0ml; Total: 0ml. Outcome: 19:32 Discharge ordered by MD. snw 23:18 Discharged to Rehab Facility jd3 23:18 Condition: stable 23:18 Discharge instructions given to patient, Instructed on discharge instructions, follow up and referral plans. Demonstrated understanding of instructions, follow-up care. 23:18 Patient's length of stay in the Emergency Department was greater than 2 hours. waiting j for transportation.Patient's length of stay extended due to 23:20 Patient left the ED. j Signatures: Dispatcher [employer] Lori Stephens, RN Xochitl Flynn ch, ASSISTED LIVING COORDINATOR-C ASSISTED LIVING COORDINATOR-Csnw Darci Ramirez Jahala, RN RN jl7 Thompson, [facility] Tawanda Beaulieu RN RN jd3 Corrections: (The following items were deleted from the chart) 17:23 16:22 A: Airway: patent, theresa
[2018-03-09 01:07] VITALS: TEMP 97.8
[2018-03-09 01:18] VITALS: BP 112/55
[2018-03-09 01:19] VITALS: O2SAT 99
== END 2018-03-08 23:20 | disposition home or self-care (01) ==
LOC: ER 16:15
DX: S09.93XA Unspecified injury of face, initial encounter (principal); S80.01XA Contusion of right knee, initial encounter; S09.90XA Unspecified injury of head, initial encounter; W19.XXXA Unspecified fall, initial encounter; Y93.89 Activity, other specified; Y92.89 Other specified places as the place of occurrence of the external cause; Z79.4 Long term (current) use of insulin; Z99.2 Dependence on renal dialysis; E11.9 Type 2 diabetes mellitus without complications; I10 Essential (primary) hypertension; F32.9 Major depressive disorder, single episode, unspecified
CPT/HCPCS: 70450; 71250; 72125; 99285

== ENCOUNTER 2018-04-16 15:58 | Emergency (ER) | payer OTHER ==
--- OUTSIDE RECORDS SUMMARY | 2018-04-16 16:59 | XMS REPORT | Continuity of Care Document ---
:1965 Author Organization Interface Problems Problem Status Onset Classification Date Comments Source Date Reported Anemia Active Finding 08/12/[address] [facility] [place] Septic shock Active Finding 08/12/[address] [facility] [place] GERD Active Finding 08/12/[address] [facility] [facility] [place] HTN Active Finding 08/12/[address] [facility] [facility] [place] UTI Active Finding 08/12/[address] [facility] [facility] [place] Depression with Active Finding 08/12/[address] [facility] [address] anxiety 017 [facility] [place] Congestive heart Active Finding 08/12/[address] [facility] [address] failure with LV 017 [facility] diastolic [place] dysfunction, NYHA class 3 Hepatitis C Active Finding 08/12/[address] [facility] [facility] [place] Seizure Active Finding 08/12/[address] [facility] [facility] [place] Thrombocytopenia Active Finding 08/12/[address] [facility] [facility] [place] Lower extremity Active Finding 08/12/[address] [facility] [address] edema 016 [facility] [place] Ascites Active Finding 08/12/[address] [facility] [facility] [place] Liver cirrhosis Active Finding 08/12/[address] [facility] [address] [facility] [place] Type II diabetes Active Finding 08/12/[address] mellitus, 016 [facility] uncontrolled [place] Hypokalemia Active Finding 08/12/[address] [facility] [address] [facility] [place] Hypomagnesemia Active Finding 08/12/[address] [facility] [facility] [place] Cellulitis of leg, Active Finding 08/12/[address] [facility] [address] [facility] 016 [facility] [place] Fever Active Finding 08/12/[address] [facility] [address] [facility] [place] Sepsis Active Finding 08/12/[address] [facility] [address] [facility] [place] Hypotension Active Finding 08/12/[address] [facility] [address] [facility] [place] Hepatic Inactive Finding 08/12/[address] [facility] [address] encephalopathy [facility] [place] Cirrhosis of liver Inactive Finding 08/12/[address] [facility] [facility] [place] Hypertensive Inactive Finding 08/12/[address] [facility] disorder, systemic [facility] arterial [place] Hypothyroidism Inactive Finding 08/12/[address] [facility] [facility] [place] Congestive heart Inactive Finding 08/12/[address] [facility] [address] failure [facility] [place] Anxiety Inactive Finding 08/12/[address] [facility] [place] Diabetes mellitus Inactive Finding 08/12/[address] [facility] [place] Fatigue Inactive Finding 08/12/[address] [facility] [place] Chronic hepatitis C Inactive Finding 08/12/[address] [facility] [place] Gastroesophageal Inactive Finding 08/12/[address] [facility] [address] reflux disease [facility] [place] Morbid obesity Inactive Finding 08/12/[address] [facility] [facility] [place] Thrombocytopenic Inactive Finding 08/12/[address] [facility] [address] disorder [facility] [place] Acute Active Finding 08/12/[address] [facility] [address] encephalopathy [facility] [place] Syncope Active Finding 08/12/[address] [facility] [facility] [place] Liver failure Active Finding 08/12/[address] [facility] [place] Altered mental Active Finding 08/12/[address] [facility] [address] status [facility] [place] E coli bacteremia Active Finding 08/12/[address] [facility] [facility] [place] Hepatic Active Finding 08/12/[address] [facility] [address] encephalopathy [facility] [place] Hepatic Active Finding 08/12/[address] [facility] [address] encephalopathy [facility] syndrome [place] Osteomyelitis Active Finding 08/12/[address] [facility] [facility] [place] Medications Medication Details Route Status Patient Ordering Order Source Instructions Provider Date Nystatin Powder TWICE DAILY Active Erik [facility] St[facility] 2018 [facility] [place] Na Bicarb Tab TWICE DAILY Active Erik [facility] St[facility] 2018 [facility] [place] Meropenem EVERY EIGHT Active Erik St[facility] HOURS 2018 [facility] [place] Lactulose THREE TIMES Active Erik St. A DAY 2018 [facility] [place] Aripiprazole AT BEDTIME Active St[facility] 2018 [facility] [place] Bupropion Hcl TWICE DAILY Active St[facility] 2018 [facility] [place] Trazodone AT BEDTIME Active St[facility] 2018 [facility] [place] Gabapentin AT BEDTIME Active . 2018 [facility] [place] Insulin Detemir DAILY WITH Active . BREAKFAST 2018 [facility] [place] Omeprazole DAILY Active . Magnesium 2018 [facility] [place] Insulin Lispro TWICE DAILY Active . 2017 [facility] [place] Ascorbic Acid TWICE DAILY Active . 2017 [facility] [place] Propranolol THREE TIMES Active St. A DAY 2017 [facility] [place] Multivitamin With DAILY Active . Minerals 2017 [facility] [place] Gabapentin TWICE DAILY Active . 2017 [facility] [place] Famotidine AT BEDTIME Active . 2017 [facility] [place] Lactulose THREE TIMES Active . A DAY 2017 [facility] [place] Spironolactone TWICE DAILY Active . 2017 [facility] [place] Furosemide TWICE DAILY Active . AT 9am & 2017 [facility] 5pm [place] Magnesium Oxide TWICE DAILY Active . 2017 [facility] [place] Neomycin Sulfate TWICE DAILY Active . 2017 [facility] [place] Lactulose THREE TIMES Active Prezas St[facility] A DAY 2016 [facility] [place] Famotidine [address] 2016 [facility] [place] Insulin Lispro TWICE DAILY Active . 2016 [facility] [place] Insulin Detemir [address] 2016 [facility] [place] Linagliptin DAILY Active St. 2016 [facility] [place] Prednisone DAILY Active . 2016 [facility] [place] Trazodone Hcl 2000 Active . 2016 [facility] [place] Lactulose TWICE DAILY Active . 2016 [facility] [place] Propranolol THREE TIMES Active St[facility] A DAY 2016 [facility] [place] Lactulose TWICE DAILY Active St. 2014 [facility] [place] Propranolol TWICE DAILY Active . 2014 [facility] [place] Venlafaxine Hcl DAILY Active St. *Xr* 2014 [facility] [place] Insulin Detemir TWICE DAILY Active . 2013 [facility] [place] Insulin Detemir TWICE DAILY Active . 2014 [facility] [place] Promethazine Tab THREE TIMES Active . A DAY PRN 2014 [facility] For Nausea [place] Spironolactone DAILY Active . 2014 [facility] [place] Lactulose TWICE DAILY Active . 2014 [facility] [place] Venlafaxine Hcl DAILY Active . *Xr* 2014 [facility] [place] Propranolol THREE TIMES Active St. A DAY 2014 [facility] [place] Magnesium Oxide TWICE DAILY Active . 2013 [facility] [place] Rifaximin TWICE DAILY Active . 2014 [facility] [place] Gabapentin AT BEDTIME Active . 2014 [facility] [place] Insulin Detemir TWICE DAILY Active . 2014 [facility] [place] Furosemide TWICE DAILY Active . AT 9am & 2014 [facility] 5pm [place] Alprazolam THREE TIMES Active St. A DAY 2014 [facility] [place] Insulin Aspart BEFORE Active St. MEALS 2014 [facility] [place] Insulin Detemir TWICE DAILY Active St. 2014 [facility] [place] Multivit,Ther DAILY Active [facility] St. Iron,Ca,Fa & Min 2013 [facility] [place] B12 [address] 2012 [facility] [place] Calcium 1200mg DAILY Active St. 2012 [facility] [place] Trazodone AT BEDTIME Active St. 2013 [facility] [place] Dexlansoprazole DAILY Active . 2013 [facility] [place] Gabapentin AT BEDTIME Active St. 2013 [facility] [place] Generlac TWICE DAILY Active . 2013 [facility] [place] Mvi DAILY Active . 2013 [facility] [place] Lisinopril DAILY Active . 2013 [facility] [place] Potassium DAILY Active . Gluconate 595 Mg 2013 [facility] [place] Rifaximin TWICE DAILY Active . 2013 [facility] [place] Saxagliptin Hcl DAILY Active . 2013 [facility] [place] Vit D3 1000 Iu DAILY Active . 2013 [facility] [place] Paroxetine Hcl DAILY Active . 2013 [facility] [place] Insulin Detemir TWICE DAILY Inactive . 2013 [facility] [place] Spironolactone DAILY Active . 2013 [facility] [place] Esomeprazole Mag DAILY Active . Trihydrate 2013 [facility] [place] Propranolol THREE TIMES Active St. A DAY 2013 [facility] [place] Furosemide TWICE DAILY Active . AT 9am & 2012 [facility] - 5pm [place] Levothyroxine DAILY AT Active St. 0600 2013 [facility] [place] Tramadol Hcl Q8H PRN For Active St. Pain 2013 [facility] [place] Insulin Aspart THREE TIMES Active [facility] St[facility] DAILY WITH 2013 Jace Garcia ME[facility] [place] Lactulose THREE TIMES Active St. A DAY 2013 [facility] [place] Insulin Detemir TWICE DAILY Active St. 2013 [facility] [place] Gabapentin TWICE DAILY Active St. 0600 AND 2012 [facility] - 1800 [place] Insulin Aspart THREE TIMES Active St. DAILY WITH 2012 [facility] - MEALS [place] Allergies, Adverse Reactions, Alerts Substance Category Reaction Severity Reaction Status Date Comments Source type Reported No Known Unknown Allergy to Active [facility] Drug Substance 8 [facility] Allergies [place] Immunizations Immunization Date Given Site Status Last Updated Comments Source Results Order Name Results Value Reference Date Interpretation Comments Source Range Laboratory Bedside 250 mg/dl 65 - 120 08/12 [facility]. Studies Glucose /2017 [facility] [place] Microbiolog Escherichia Escherichia 08/12 St. y Studies Coli Coli /2017 [facility] [place] Microbiolog Enterococcus Enterococcu 08/12 [facility]. y Studies Faecalis s Faecalis /2017 [facility] [place] Laboratory White Blood 5.1 K/uL 4.3 - 10.9 08/12 [facility]. Studies Count /2017 [facility] [place] Laboratory Red Cell 14.7 % 12.1 - 08/12 [facility]. Studies Distribution 15.2 [facility] - Width [place] Laboratory Red Blood 2.87 M/uL 3.86 - 08/12 [facility] Studies Count 4.86 [facility] [place] Laboratory Platelet 59 K/uL 152 - 406 08/12 [facility] Studies Count /2017 [facility] [place] Laboratory Neutrophils % 64.1 % 41.7 - 08/[address] [facility] [address] Studies 73.7 /2017 [facility] [place] Laboratory Monocytes % 9.9 % 3.3 - 12.3 08/[address] [facility] [address] Studies /2017 [facility] [place] Laboratory Mean Platelet 9.8 fL 7.6 - 11.3 08/12 [facility]. Studies Volume /2017 [facility] [place] Laboratory Mean 93.2 fL 80 - 100 08/12 [facility] Studies Corpuscular /2017 [facility] Volume [place] Laboratory Mean 33.8 g/dL 32.0 - 08/12 [facility] Studies Corpuscular 36.0 /2017 [facility] - Hemoglobin [place] Concent Laboratory Mean 31.5 pg 27.0 - 08/12 [facility] Studies Corpuscular 35.0 [facility] - Hemoglobin [place] Laboratory Lymphocytes % 17.8 % 15.3 - 08/12 [facility] Studies 44.8 /2017 [facility] [place] Laboratory Hemoglobin 9.0 g/dL 12.0 - 08/[address] [facility] [address] Studies 15.0 [facility] [place] Laboratory Hematocrit 26.7 % 36.0 - [address] [facility] [address] Studies 45.0 [facility] [place] Laboratory Eosinophils % 7.3 % 0 - 4.4 08/12 St. Studies /2017 [facility] [place] Laboratory Basophils % 0.9 % 0 - 1.3 08/12 St. Studies /2017 [facility] [place] Laboratory Absolute 3.3 K/uL 1.8 - 8.0 08/[address] [facility] [address] Studies Neutrophil /2017 [facility] [place] Laboratory Absolute 0.5 K/uL 0.1 - 1.3 08/[address] [facility] [address] Studies Monocytes [facility] - (CBC) [place] Laboratory Absolute 0.9 K/uL 0.7 - 4.9 08/[address] [facility] [address] Studies Lymphocytes [facility] - (CBC) [place] Laboratory Absolute 0.4 K/uL 0 - 0.5 08/[address] [facility] [address] Studies Eosinophils [facility] - (CBC) [place] Laboratory Absolute 0.0 K/uL 0 - 0.5 08/[address] [facility] [address] Studies Basophils [facility] - (CBC) [place] Laboratory Ammonia 167 umol/L 10 - 45 08/[address] [facility] [address] Studies /2017 [facility] [place] Laboratory Total 2.0 mg/dL 0.3 - 1.2 08/[address] [facility] [address] Studies Bilirubin /2017 [facility] [place] Laboratory Sodium Level 136 mEq/L 135 - 145 08/[address] [facility] [address] Studies /2017 [facility] [place] Laboratory Serum Total 5.9 g/dL 6.0 - 8.3 08/[address] [facility] [address] Studies Protein /2017 [facility] [place] Laboratory Potassium 4.3 mEq/L 3.6 - 5.0 08/[address] [facility] [address] Studies Level /2017 [facility] [place] Laboratory Phosphorus 3.4 mg/dL 2.5 - 4.3 08/[address] [facility] [address] Studies Level /2017 [facility] [place] Laboratory Magnesium 1.9 mg/dL 1.8 - 2.5 08/[address] [facility] [address] Studies Level /2017 [facility] [place] Laboratory Glucose Level 92 mg/dL 65 - 120 08/[address] [facility] [address] Studies /2017 [facility] [place] Laboratory Globulin 3.4 g/dL 2.3 - 3.5 08/12 St. Studies /2017 [facility] [place] Laboratory Estimat 17 mL/min 90 08/[address] [facility] [address] Studies Glomerular /2017 [facility] Filtration [place] Rate Laboratory Creatinine 3.01 mg/dL 0.44 - [address] [facility] [address] Studies 1.00 /2017 [facility] [place] Laboratory Chloride 113 mEq/L 101 - 111 08/[address] [facility] [address] Studies Level /2017 [facility] [place] Laboratory Carbon 18 mEq/L 21 - 31 08/[address] [facility] [address] Studies Dioxide Level /2017 [facility] [place] Laboratory Calcium Level 8.7 mg/dL 8.5 - 10.5 08/[address] [facility] [address] Studies /2017 [facility] [place] Laboratory Blood Urea 33 mg/dL 6 - 20 08/12 [facility] Studies Nitrogen /2017 [facility] [place] Laboratory Aspartate 69 IU/L 10 - 42 08/[address] [facility] [address] Studies Amino Transf /2017 [facility] - (AST/SGOT) [place] Laboratory Alkaline 165 IU/L 42 - 121 08/12 [facility] Studies Phosphatase /2017 [facility] [place] Laboratory Albumin/Globu 0.7 1.1 - 1.8 08/[address] [facility] [address] Studies josé antonio Ratio /2017 [facility] [place] Laboratory Albumin 2.5 g/dL 3.2 - 5.5 08/[address] [facility] [address] Studies /2017 [facility] [place] Laboratory Alanine 38 IU/L 10 - 60 08/12 [facility] Studies Aminotransfer /2017 [facility] - ase [place] (ALT/SGPT) Laboratory Vitamin B12 789 pg/ml 180 - 914 08/[address] [facility] [address] Studies Level /2017 [facility] [place] Laboratory Transferrin % 43.6 % 20.0 - [address] [facility] [address] Studies Saturation 50.0 [facility] [place] Laboratory Transferrin 146 mg/dL 192 - 382 08/[address] [facility] [address] Studies /2017 [facility] [place] Laboratory Total Iron 204 ug/dL 250 - 460 08/[address] [facility] [address] Studies Binding /2017 [facility] - Capacity [place] Laboratory Thyroid 4.13 uIU/mL 0.34 - [address] [facility] [address] Studies Stimulating 5.60 [facility] - Hormone (TSH) [place] Laboratory Serum Folate 13.4 ng/ml 5.21 08/[address] [facility] [address] Studies /2017 [facility] [place] Laboratory Iron Level 89.0 ug/dL 28 - 170 08/[address] [facility] [address] Studies /2017 [facility] [place] Laboratory Ferritin 559.3 ng/ml 11.0 - 08/[address] [facility] [address] Studies 306.8 [facility] [place] Laboratory Percent 1.56 % 0.4 - 2.05 08/[address] [facility] [address] Studies Reticulocyte /2017 [facility] - Count [place] Laboratory Absolute 0.05 M/uL 0.02 - 08/[address] [facility] [address] Studies Reticulocyte 0.11 [facility] - Count [place] Laboratory Urine WBC null 08/[address] [facility] [address] Studies /2017 [facility] [place] Laboratory Urine null 08/[address] [facility] [address] Studies Squamous [facility] - Epithelial [place] Cells Laboratory Urine RBC null 08/[address] [facility] [address] Studies [facility] [place] Laboratory Urine Culture Urine 08/[address] [facility] [address] Studies Reflexed Culture /2017 [facility] - Reflexed [place] Laboratory Urine null 08/[address] [facility] [address] Studies Bacteria /2017 [facility] [place] Laboratory Urine Urine 08/[address] [facility] [address] Studies Amorphous Amorphous [facility] - Sediment Sediment [place] Laboratory Urine pH 6.0 08/[address] [facility] [address] Studies /2017 [facility] [place] Laboratory Urine 1.0 mg/dL 08/[address] [facility] [address] Studies Urobilinogen /2017 [facility] [place] Laboratory Urine Total Urine Total 08/[address] [facility] [address] Studies Protein Protein /2017 [facility] [place] Laboratory Urine 1.010 08/[address] [facility] [address] Studies Specific /2017 [facility] - [place] Laboratory Urine Nitrite Urine 08/[address] [facility] [address] Studies Nitrite [facility] [place] Laboratory Urine Urine 08/[address] [facility] [address] Studies Leukocyte Leukocyte /2017 [facility] - Esterase Esterase [place] Laboratory Urine Ketones Urine 08/[address] [facility] [address] Studies Ketones /2017 [facility] [place] Laboratory Urine Glucose Urine 08/[address] [facility] [address] Studies Glucose [facility] [place] Laboratory Urine Color Urine Color 08/[address] [facility] [address] Studies [facility] [place] Laboratory Urine Blood Urine Blood 08/[address] [facility] [address] Studies [facility] [place] Laboratory Urine Urine 08/[address] [facility] [address] Studies Bilirubin Bilirubin /2017 [facility] - [place] Laboratory Urine Urine 08/10 [facility] Studies Appearance Appearance /2017 [facility] [place] Laboratory Urine Random 97 mEq/L 27 - 287 08/10 [facility] Studies Sodium [facility] [place] Laboratory Urine Random 18.7 mEq/L 25 - 120 08/10 [facility] Studies Potassium [facility] [place] Laboratory Anti-Nuclear Anti-Nuclea 08/10 [facility] Studies Antibody r Antibody /2017 [facility] - Screen Screen [place] Laboratory Anti-Nuclear Anti-Nuclea 08/10 [facility] Studies Antibody r Antibody /2017 [facility] - Pattern 2 Pattern 2 [place] Laboratory Urine Random 14 mg/dl 08/09 [facility] Studies Total Protein /2017 [facility] [place] Laboratory Urine 27.5 mg/dL 08/09 [facility] Studies Creatinine /2017 [facility] - [place] Laboratory Troponin I null 08/08 [facility]. Studies /2017 [facility] - [place] Laboratory Other Total 8.9 g/dl - 08/08 [facility] Studies Hemoglobin /2017 [facility] - (Blood Gas) [place] Laboratory Blood Gas pH 7.43 7.35 - 08/08 [facility] Studies 7.45 [facility] [place] Laboratory Blood Gas PO2 131.0 mmHG 75 - 100 08/08 [facility] Studies /2017 [facility] [place] Laboratory Blood Gas 30.3 mmHG 35 - 45 08/08 [facility]. Studies PCO2 [facility] [place] Laboratory Blood Gas 95.2 % 94 - 97 08/08 [facility] Studies Oxyhemoglobin /2017 [facility] [place] Laboratory Blood Gas 30.0 % 08/08 [facility]. Studies Inspired [facility] - Oxygen [place] Laboratory Blood Gas 19.9 mmol/L 22 - 28 08/08 [facility]. Studies HCO3 [facility] [place] Laboratory Blood Gas -3.7 mmol/L 08/08 [facility]. Studies Base Excess /2017 [facility] [place] Laboratory Arterial 1.7 % 0 - 1.5 08/08 [facility] Studies Blood [facility] - Methemoglobin [place] Laboratory Arterial 1.8 % 0 - 1.5 08/08 [facility] Studies Blood [facility] - Carboxyhemogl [place] obin Laboratory Arterial Bld 98.7 % 92 - 98.5 08/[address] [facility] [address] Studies O2 Saturation [facility] - (Measur) [place] Laboratory Urine Urine 08/[address] [facility] [address] Studies [facility] - Test Test [place] Laboratory Blood Blood 08/07 [facility] Studies Morphology Morphology [facility] - Comment Comment [place] Laboratory Rapid null 08/07 [facility] Studies Troponin I [facility] [place] Laboratory Lactic Acid 10.8 mg/dL 4.5 - 19.8 08/[address] [facility] [address] Studies Level /2017 [facility] [place] Laboratory Prothrombin 13.7 9.5 - 12.5 08/[address] [facility] [address] Studies Time SECONDS [facility] - [place] Laboratory INR 1.16 08/[address] [facility] [address] Studies International [facility] - Normalized [place] Ratio Laboratory Activated 37.6 24.3 - 08/07 [facility]. Studies Partial SECONDS 36.9 [facility] - Thromboplast [place] Time Laboratory B-Type 646 pg/ml 08/07 [facility]. Studies Natriuretic [facility] - Peptide [place] Laboratory Direct 0.8 mg/dL 0 - 0.2 08/07 [facility]. Studies Bilirubin [facility] [place] Laboratory Creatine 52 IU/L 22 - 269 08/[address] [facility] [address] Studies Kinase [facility] [place] Laboratory Lipase 85 U/L 22 - 51 08/[address] [facility] [address] Studies /2017 [facility] [place] Vital Signs Vital Sign Value Date Comments Source Height 67 08/12/2017 [facility] [place] Weight 193.40 08/12/2017 [facility] [place] Temperature Oral (F) 97.5 F 08/12/[address] [facility] [address] [facility] [place] Heart Rate 79 08/12/2017 [facility] [place] Respitory Rate 18 08/12/[address] [facility] [address] [facility] [place] Systolic (mm Hg) 152 08/12/[address] [facility] [address] [facility] [place] Diastolic (mm Hg) 80 08/12/2017 [facility] [place] Encounters Location Location Encounter Encounter Reason Attending ADM DC Status Source Details Type Number For Provider Date Date Visit [facility] Discharged [id number] 08/07 08/12 [facility] [place] Mi Procedures Procedure Code Date Perfomer Comments Source Chest Single [id number] [facility] - View 8 [place] [id number] [facility] - 8 [place] Levering Count [id number] [facility] - 8 [place] Anaerobic Blood [id number] [facility] - Culture 8 [place] Aerobic Blood [id number] [facility] - Culture 8 [place] Head Brain Wo [id number] [facility] - Cont 8 [place] Chest Single [id number] [facility] - View 8 [place]
[2018-04-16 17:57] LABS: Absolute Lymphocytes (CBC) 0.6 K/uL (0.7-4.9); Absolute Monocytes 0.5 K/uL (0.1-1.3); Absolute Neutrophil 2.9 K/uL (1.8-8.0); Basophils % 0.7 % (0-1.3); Eosinophils % 0.7 % (0-4.4); Hematocrit 27.3 % (36.0-45.0); Lymphocytes % 15.3 % (15.3-44.8); MPV 9.2 fL (7.6-11.3); Monocytes % 12.3 % (3.3-12.3); RBC Red Blood Cell Count 2.75 M/uL (3.86-4.86)
[2018-04-16 18:14] LABS: Albumin 2.4 g/dL (3.4-5.0); Bilirubin Total 3.7 mg/dL (0.2-1.0); Protein, Total 6.6 g/dL (6.4-8.2)
[2018-04-16 18:19] LABS: Protime INR 1.23
--- NOTE | 2018-04-16 18:58 | ER ---
Nurse's Notes [facility] Name: Ernestina Mackay Age: 52 yrs Sex: Female : 1965 Arrival Date: 04/16/2018 Time: 16:00 Bed 7 Private MD: Diagnosis: Post surgical complication Presentation: 04/16 16:05 Presenting complaint: Patient states: I have dialysis access on my left arm and I have la1 been having bruising and swelling to my left arm that has been going on for 4-5 days and now they cant find a pulse in my left wrist. Transition of care: patient was not received from another setting of care. Onset of symptoms was April 16, 2018. Risk Assessment: Do you want to hurt yourself or someone else? Patient reports no desire to harm self or others. Initial Sepsis Screen: Does the patient meet any 2 criteria? No. Patient's initial sepsis screen is negative. Does the patient have a suspected source of infection? No. Patient's initial sepsis screen is negative. Care prior to arrival: None. 16:05 Method Of Arrival: Wheelchair la1 16:05 Acuity: TOM 2 la1 Triage Assessment: 16:18 General: Behavior is RUE DIALYSIS ACCESS PLACED xWEEK AGO, NOTED MARKED SWELLING, bp PALLOR, AND LIVIDITY. 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 LMP N/A - Irregular menses bp Historical: - Allergies: 16:18 NKDA; bp - Home Meds: 16:18 Abilify 5 mg Oral tab 1 tab every tuesday [Active]; gabapentin 100 mg Oral cap 1 caps bp twice a day [Active]; Humalog sliding scale Sub-Q twice a day [Active]; lactulose 10 gram/15 mL (15 mL) Oral soln 30 mL 30 Ml by mouth three times a day on tuesday, tuesday, , and tuesday due to cirrhosis [Active]; Levemir 100 unit/mL subcutaneous soln 25 Units SQ every morning for Type 2 Diabetes Mellitus [Active]; meclizine 12.5 mg Oral tab 2 tabs 2 times per day [Active]; neomycin 500 mg Oral tab 3 tabs daily [Active]; Nepro Carb Steady 0.08-1.80 gram-kcal/mL Oral liqd [Active]; Pepcid 20 mg Oral tab 1 tab once daily [Active]; propranolol 10 mg Oral tab 1 tab twice a day [Active]; Wellbutrin SR 150 mg Oral TbER 1 tab 2 times per day [Active]; Zoloft 50 mg Oral tab 1 tab once daily [Active]; - PMHx: 16:18 Anemia; Anxiety; Cellulitis; CHF; Chronic pain; Cirrhosis; Depression; Diabetes - bp NIDDM; Dialysis; Hepatitis; Hypertension; insomnia; - Immunization history:: Adult Immunizations. - Social history:: Smoking status: Patient/guardian denies using tobacco. - Ebola Screening: : Patient negative for fever greater than or equal to 101.5 degrees Fahrenheit, and additional compatible Ebola Virus Disease symptoms Patient denies exposure to infectious person Patient denies travel to an Ebola-affected area in the 21 days before illness onset No symptoms or risks identified at this time. Screenin:02 Abuse screen: Denies threats or abuse. Denies injuries from another. Nutritional bp screening: No deficits noted. Tuberculosis screening: No symptoms or risk factors identified. Fall Risk None identified. Assessment: 16:15 General: Appears in no apparent distress. comfortable, obese, Behavior is cooperative, bp appropriate for age, listless. Pain: Complains of pain in left arm. Neuro: Level of Consciousness is awake, alert, obeys commands, Oriented to person, place, time, situation, Appropriate for age. Cardiovascular: No deficits noted. Respiratory: Airway is patent Respiratory effort is even, unlabored, Respiratory pattern is regular, symmetrical. GI: No signs and/or symptoms were reported involving the gastrointestinal system. : No signs and/or symptoms were reported regarding the genitourinary system. EENT: No deficits noted. Derm: No deficits noted. Musculoskeletal: Swelling present in left arm. Injury Description: Bruise sustained to left arm is purple. 17:04 Reassessment: [facility] TRANSFER PENDING. bp 17:47 Reassessment: [facility] ACCEPTED TRANSFER, TRANSFER IN PROCESS. PULSES REMAIN PALPABLE IN bp AFFECTED ARM. 18:12 Reassessment: REPORT TO [facility]. TRANSPORT PENDING. bp 19:05 Reassessment: Patient appears in no apparent distress at this time. No changes from jd3 previously documented assessment. Patient and/or family updated on plan of care and expected duration. Pain level reassessed. Patient is alert, oriented x 3, equal unlabored respirations, skin warm/dry/pink. 19:40 Reassessment: Patient appears in no apparent distress at this time. Patient and/or jd3 family updated on plan of care and expected duration. Pain level reassessed. Patient is alert, oriented x 3, equal unlabored respirations, skin warm/dry/pink. report given to EMS. 19:50 Reassessment: Cathy with [facility] notified of pt being transferred. Vital Signs: 16:14 BP 110 / 46; Pulse 53; Resp 16; Temp 98; Pulse Ox 100% ; Weight 81.65 kg; bp 17:04 BP 101 / 49; Pulse 52; Resp 16; Pulse Ox 100% ; bp 17:47 BP 121 / 41; Pulse 52; Resp 14; Pulse Ox 100% ; bp 18:14 BP 99 / 46; Pulse 52; Resp 16; Pulse Ox 100% ; bp 18:46 BP 101 / 54; Pulse 53; Resp 14; Pulse Ox 100% ; bp 19:05 BP 101 / 56; Pulse 53; Resp 17 S; Pulse Ox 100% on R/A; jd3 ED Course: 16:00 Patient arrived in ED. mr 16:06 Triage completed. la1 16:10 Sheldon Galloway, RN is Primary Nurse. bp 16:16 Sekou Monson MD is Attending Physician. ps1 16:33 Arm band placed on. bp 17:02 Patient has correct armband on for positive identification. Bed in low position. Call bp light in reach. Side rails up X2. Adult w/ patient. 17:02 No provider procedures requiring assistance completed. Inserted saline lock: 22 gauge bp in right wrist, using aseptic technique. Blood collected. 18:12 Patient transferred, IV remains in place. bp 18:45 Wound care: to WEEPING ANASARCA located on left arm was dressed with 4X4s, Kerlix, bp Patient tolerated well. 19:05 Primary Nurse role handed off by Sheldon Galloway, ESSIE jd3 19:05 Tawanda Beaulieu RN is Primary Nurse. jd3 Administered Medications: No medications were administered Outcome: 18:13 Transferred by ground EMS to [facility], to [facility], Transfer bp form completed. 18:13 Condition: stable 18:13 Instructed on the need for transfer. 18:57 ER care complete, transfer ordered by MD. ps1 19:41 Patient left the ED. jd3 Signatures: Laure LopezjaylynRicha, RN RN fc Bill Shelley RN RN Tawanda Mcadams RN RN jSheldon Rodríguez RN RN bp Singer, Phillip, MD MD ps1
--- NOTE | 2018-04-16 18:58 | EDPHYS ---
Physician Documentation [facility] Name: Ernestina Mackay Age: 52 yrs Sex: Female : 1965 Arrival Date: 04/16/2018 Time: 16:00 Bed 7 Private MD: ED Physician Sekou Monson HPI: 04/16 16:16 This 52 yrs old Female presents to ER via Wheelchair with complaints of Arm ps1 swelling. 16:16 patient had a recent AV fistula placed by doctor in [facility]. Sent ps1 in from dialysis for arm swelling, cold limb, and no pulses. Patient does indeed have pulses and a palpable thrill. Arm is swollen and has hemosiderin staining. Incision has blood weeping from surgical site. . 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 - Irregular menses bp Historical: - Allergies: 16:18 NKDA; bp - Home Meds: 16:18 Abilify 5 mg Oral tab 1 tab every tuesday [Active]; gabapentin 100 mg Oral cap 1 caps bp twice a day [Active]; Humalog sliding scale Sub-Q twice a day [Active]; lactulose 10 gram/15 mL (15 mL) Oral soln 30 mL 30 Ml by mouth three times a day on tuesday, tuesday, , and tuesday due to cirrhosis [Active]; Levemir 100 unit/mL subcutaneous soln 25 Units SQ every morning for Type 2 Diabetes Mellitus [Active]; meclizine 12.5 mg Oral tab 2 tabs 2 times per day [Active]; neomycin 500 mg Oral tab 3 tabs daily [Active]; Nepro Carb Steady 0.08-1.80 gram-kcal/mL Oral liqd [Active]; Pepcid 20 mg Oral tab 1 tab once daily [Active]; propranolol 10 mg Oral tab 1 tab twice a day [Active]; Wellbutrin SR 150 mg Oral TbER 1 tab 2 times per day [Active]; Zoloft 50 mg Oral tab 1 tab once daily [Active]; - PMHx: 16:18 Anemia; Anxiety; Cellulitis; CHF; Chronic pain; Cirrhosis; Depression; Diabetes - bp NIDDM; Dialysis; Hepatitis; Hypertension; insomnia; - Immunization history:: Adult Immunizations. - Social history:: Smoking status: Patient/guardian denies using tobacco. - Ebola Screening: : Patient negative for fever greater than or equal to 101.5 degrees Fahrenheit, and additional compatible Ebola Virus Disease symptoms Patient denies exposure to infectious person Patient denies travel to an Ebola-affected area in the 21 days before illness onset No symptoms or risks identified at this time. ROS: 19:00 Constitutional: Negative for fever, chills, and weight loss, Eyes: Negative for injury, ps1 pain, redness, and discharge, Cardiovascular: Negative for chest pain, palpitations, and edema, Respiratory: Negative for shortness of breath, cough, wheezing, and pleuritic chest pain, Abdomen/GI: Negative for abdominal pain, nausea, vomiting, diarrhea, and constipation, Back: Negative for injury and pain, Skin: Negative for injury, rash, and discoloration, Neuro: Negative for headache, weakness, numbness, tingling, and seizure. 19:00 MS/extremity: Positive for ecchymosis, swelling, tenderness, of the left arm. Exam: 19:00 Constitutional: This is a well developed, well nourished patient who is awake, alert, ps1 and in no acute distress. Head/Face: Normocephalic, atraumatic. Chest/axilla: Normal chest wall appearance and motion. Nontender with no deformity. No lesions are appreciated. Cardiovascular: Regular rate and rhythm. No gallops, murmurs, or rubs. Normal PMI, no JVD. No pulse deficits. Respiratory: Lungs have equal breath sounds bilaterally, clear to auscultation and percussion. No rales, rhonchi or wheezes noted. No increased work of breathing, no retractions or nasal flaring. Abdomen/GI: Soft, non-tender, with normal bowel sounds. No distension or tympany. No guarding or rebound. No evidence of tenderness throughout. Neuro: Awake and alert, GCS 15, oriented to person, place, time, and situation. Cranial nerves II-XII grossly intact. Sensory grossly intact. Psych: Awake, alert, with orientation to person, place and time. Behavior, mood, and affect are within normal limits. 19:00 Musculoskeletal/extremity: Extremities: grossly normal except: pain, swelling. Vital Signs: 16:14 BP 110 / 46; Pulse 53; Resp 16; Temp 98; Pulse Ox 100% ; Weight 81.65 kg; bp 17:04 BP 101 / 49; Pulse 52; Resp 16; Pulse Ox 100% ; bp 17:47 BP 121 / 41; Pulse 52; Resp 14; Pulse Ox 100% ; bp 18:14 BP 99 / 46; Pulse 52; Resp 16; Pulse Ox 100% ; bp 18:46 BP 101 / 54; Pulse 53; Resp 14; Pulse Ox 100% ; bp 19:05 BP 101 / 56; Pulse 53; Resp 17 S; Pulse Ox 100% on R/A; jd3 MDM: 16:52 Patient medically screened. ps1 19:00 Data reviewed: vital signs, nurses notes, lab test result(s), and as a result, I will ps1 transfer patient for evaluation at [facility]. . 04/16 17:15 Order name: CBC with Diff ps1 04/16 17:15 Order name: CMP ps1 04/16 17:38 Order name: AMMONIA bp 04/16 17:38 Order name: Protime (+inr) bp 04/16 17:38 Order name: Ptt, Activated bp Administered Medications: No medications were administered Disposition: 04/16/18 18:57 Transfer ordered to Other Acute Care Facility. Diagnosis is Post surgical complication. - Reason for transfer: Higher level of care. - Accepting physician is ramon. - Condition is Stable. - Problem is new. - Symptoms are unchanged. Signatures: Dispatcher [employer] Tawanda Millan RN RN jd3 Peltier, Brian, RN RN Sekou Taedo MD MD [facility] Corrections: (The following items were deleted from the chart) 18:58 16:16 patient had a recent AV fistula placed by doctor in [place]. Sent in from [facility] dialysis for arm swelling, cold limb, and no pulses. Patient does indeed have pulses and a palpable thrill. Arm is swollen and has hemosiderin staining. Incision has blood weeping from surgical site. . ps1 19:41 18:57 04/16/2018 18:57 Transfer ordered to Other Acute Care Facility. Diagnosis is Post jd3 surgical complication. Reason for transfer: Higher level of care. Accepting physician is ramon. Condition is Stable. Problem is new. Symptoms are unchanged. ps1
[2018-04-16 20:09] VITALS: TEMP 98; O2SAT 100
[2018-04-16 20:19] VITALS: BP 101/56
== END 2018-04-16 19:41 ==
LOC: ER 15:58
DX: T82.838A Hemorrhage due to vascular prosthetic devices, implants and grafts, initial encounter (principal); X58.XXXA Exposure to other specified factors, initial encounter; E11.9 Type 2 diabetes mellitus without complications; I10 Essential (primary) hypertension; D64.9 Anemia, unspecified; F41.9 Anxiety disorder, unspecified; G89.29 Other chronic pain; I11.0 Hypertensive heart disease with heart failure; I50.9 Heart failure, unspecified; Z99.2 Dependence on renal dialysis; Z79.4 Long term (current) use of insulin; Z79.899 Other long term (current) drug therapy
CPT/HCPCS: 36415; 80053; 82140; 85025; 85610; 85730; 99285

== ENCOUNTER 2018-05-19 14:42 | Inpatient (IN) | payer OTHER ==
--- OUTSIDE RECORDS SUMMARY | 2018-05-19 14:46 | XMS REPORT | Continuity of Care Document ---
[...] Date Nystatin Powder TWICE DAILY Active Erik [facility] 2018 [facility] [place] Na Bicarb Tab TWICE DAILY Active Erik [facility] St[facility] 2018 [facility] [place] Meropenem EVERY EIGHT Active Erik St[facility] HOURS 2018 [facility] [place] Lactulose THREE TIMES Active Erik St. A DAY 2018 [facility] [place] Aripiprazole AT BEDTIME Active St. 2018 [facility] [place] Bupropion Hcl TWICE DAILY Active St. 2018 [facility] [place] Trazodone AT BEDTIME Active St. 2018 [facility] [place] Gabapentin AT BEDTIME Active . 2018 [facility] [place] Insulin Detemir DAILY WITH Active . BREAKFAST 2018 [facility] [place] Omeprazole DAILY Active . Magnesium 2018 [facility] [place] Insulin Lispro TWICE DAILY Active . 2017 [facility] [place] Ascorbic Acid TWICE DAILY Active . 2017 [facility] [place] Propranolol THREE TIMES Active . A DAY 2017 [facility] [place] Multivitamin With DAILY Active . Minerals 2017 [facility] [place] Gabapentin TWICE DAILY Active . 2017 [facility] [...] 2016 [facility] [place] Linagliptin DAILY Active . 2016 [facility] [place] Prednisone DAILY Active . 2016 [facility] [place] Trazodone Hcl 2000 Active . 2016 [facility] [place] Lactulose TWICE DAILY Active . 2016 [facility] [place] Propranolol THREE TIMES Active St. A DAY 2016 [facility] [place] Lactulose TWICE DAILY Active St. 2014 [facility] [place] Propranolol TWICE DAILY Active St. 2014 [facility] [place] Venlafaxine Hcl DAILY Active St. *Xr* 2014 [facility] [place] Insulin Detemir TWICE DAILY Active . 2013 [facility] [place] Insulin Detemir TWICE DAILY Active . 2013 [facility] [place] Promethazine Tab THREE TIMES Active St. A DAY PRN 2014 [facility] For Nausea [place] Spironolactone DAILY Active . 2014 [facility] [place] Lactulose TWICE DAILY Active . 2014 [facility] [place] Venlafaxine Hcl DAILY Active . *Xr* 2014 [facility] [place] Propranolol THREE TIMES Active St. A DAY 2014 [facility] [place] Magnesium Oxide TWICE DAILY Active . 2013 [facility] [place] Rifaximin TWICE DAILY Active . 2013 [facility] [place] Gabapentin AT BEDTIME Active [...] 2014 [facility] [place] Multivit,Ther DAILY Active Thakur St. Iron,Ca,Fa & Min 2013 [facility] [place] B12 2500 Mcg DAILY Active . 2012 [facility] [place] Calcium 1200mg DAILY Active . 2012 [facility] [place] Trazodone AT BEDTIME Active . 2013 [facility] [place] Dexlansoprazole DAILY Active . 2013 [facility] [place] Gabapentin AT BEDTIME Active . 2013 [facility] [place] Generlac TWICE DAILY Active . 2013 [facility] [place] Mvi DAILY Active . 2013 [facility] [place] Lisinopril DAILY Active . 2013 [facility] [place] Potassium DAILY Active . Gluconate 595 Mg 2013 [facility] [place] Rifaximin TWICE DAILY Active . 2013 [facility] [place] Saxagliptin Hcl DAILY Active . 2013 [facility] [place] Vit D3 1000 Iu DAILY Active . 2013 [facility] [place] Paroxetine Hcl DAILY Active . 2013 [facility] [place] Insulin Detemir TWICE DAILY Inactive . 2013 [facility] [place] Spironolactone DAILY Active . 2013 [facility] [place] Esomeprazole Mag DAILY Active . Trihydrate 2013 [facility] [place] Propranolol THREE TIMES Active St. A DAY 2013 [facility] [place] Furosemide TWICE DAILY Active . AT 9am & 2012 [facility] 5pm [place] Levothyroxine DAILY AT Active . 0600 2013 [facility] [place] Tramadol Hcl Q8H PRN For Active . Pain 2013 [facility] [place] Insulin Aspart THREE TIMES Active Prezas St. DAILY WITH 2013 [facility] MEALS [place] Lactulose THREE TIMES Active St. A DAY 2013 [facility] [place] Insulin Detemir TWICE DAILY Active St. 2013 [facility] [place] Gabapentin TWICE DAILY Active St. 0600 AND 2012 [facility] 1800 [place] Insulin Aspart THREE TIMES Active St. DAILY WITH 2012 [facility] MEALS [place] Allergies, Adverse Reactions, Alerts Substance Category Reaction Severity Reaction Status Date Comments Source type Reported No Known Unknown Allergy to Active [facility]. Drug Substance 8 [facility] Allergies [place] Immunizations Immunization Date Given Site Status Last Updated Comments Source Results Order Name Results Value Reference Date Interpretation Comments Source Range Laboratory Bedside 250 mg/dl 65 - 120 08/[address] [facility] [address] Studies Glucose /2017 [facility] [place] Microbiolog Escherichia Escherichia 08/12 St. y Studies Coli Coli /2017 [facility] [place] Microbiolog Enterococcus Enterococcu 08/12 [facility]. y Studies Faecalis s Faecalis /2017 [facility] [place] Laboratory White Blood 5.1 K/uL 4.3 - 10.9 08/[address] [facility] [address] Studies Count /2017 [facility] [place] Laboratory Red Cell 14.7 % 12.1 - 08/12 [facility]. Studies Distribution 15.2 [facility] Width [place] Laboratory Red Blood 2.87 M/uL 3.86 - 08/12 [facility]. Studies Count 4.86 [facility] [place] Laboratory Platelet 59 K/uL 152 - 406 08/12 [facility]. Studies Count [facility] [place] Laboratory Neutrophils % 64.1 % 41.7 - 08/[address] [facility] [address] Studies 73.7 /2017 [facility] [place] Laboratory Monocytes % 9.9 % 3.3 - 12.3 08/[address] [facility] [address] Studies /2017 [facility] [place] Laboratory Mean Platelet 9.8 fL 7.6 - 11.3 08/[address] [facility] [address] Studies Volume /2017 [facility] [place] Laboratory Mean 93.2 fL 80 - 100 08/12 [facility]. Studies Corpuscular /2017 [facility] Volume [place] Laboratory Mean 33.8 g/dL 32.0 - 08/12 [facility]. Studies Corpuscular 36.0 /2017 [facility] Hemoglobin [place] Concent Laboratory Mean 31.5 pg 27.0 - 08/12 [facility]. Studies Corpuscular 35.0 [facility] Hemoglobin [place] Laboratory Lymphocytes % 17.8 % 15.3 - 08/[address] [facility] [address] Studies 44.8 [facility] [place] Laboratory Hemoglobin 9.0 g/dL 12.0 - 08/[address] [facility] [address] Studies 15.0 [facility] [place] Laboratory Hematocrit 26.7 % 36.0 - [address] [facility] [address] Studies 45.0 [facility] [place] Laboratory Eosinophils % 7.3 % 0 - 4.4 08/12 St. Studies /2017 [facility] [place] Laboratory Basophils % 0.9 % 0 - 1.3 08/[address] [facility] [address] Studies /2017 [facility] [place] Laboratory Absolute 3.3 K/uL 1.8 - 8.0 08/[address] [facility] [address] Studies Neutrophil /2017 [facility] [place] Laboratory Absolute 0.5 K/uL 0.1 - 1.3 08/[address] [facility] [address] Studies Monocytes [facility] (CBC) [place] Laboratory Absolute 0.9 K/uL 0.7 - 4.9 08/[address] [facility] [address] Studies Lymphocytes [facility] (CBC) [place] Laboratory Absolute 0.4 K/uL 0 - 0.5 08/[address] [facility] [address] Studies Eosinophils /2017 [facility] (CBC) [place] Laboratory Absolute 0.0 K/uL 0 - 0.5 08/[address] [facility] [address] Studies Basophils /2017 [facility] (CBC) [place] Laboratory Ammonia 167 umol/L 10 - 45 08/[address] [facility] [address] Studies /2018 [facility] [place] Laboratory Total 2.0 mg/dL 0.3 - 1.2 08/[address] [facility] [address] Studies Bilirubin /2017 [facility] [place] Laboratory Sodium Level 136 mEq/L 135 - 145 08/[address] [facility] [address] Studies /2018 [facility] [place] Laboratory Serum Total 5.9 g/dL 6.0 - 8.3 08/[address] [facility] [address] Studies Protein /2017 [facility] [place] Laboratory Potassium 4.3 mEq/L 3.6 - 5.0 08/[address] [facility] [address] Studies Level /2017 [facility] [place] Laboratory Phosphorus 3.4 mg/dL 2.5 - 4.3 08/[address] [facility] [address] Studies Level /2017 [facility] [place] Laboratory Magnesium 1.9 mg/dL 1.8 - 2.5 08/[address] [facility] [address] Studies Level /2017 [facility] [place] Laboratory Glucose Level 92 mg/dL 65 - 120 08/[address] [facility] [address] Studies /2017 [facility] [place] Laboratory Globulin 3.4 g/dL 2.3 - 3.5 08/12 St. Studies /2017 [facility] [place] Laboratory Estimat 17 mL/min 90 08/[address] [facility] [address] Studies Glomerular /2017 [facility] Filtration [place] Rate Laboratory Creatinine 3.01 mg/dL 0.44 - [address] [facility] [address] Studies 1.00 /2017 [facility] [place] Laboratory Chloride 113 mEq/L 101 - 111 08/[address] [facility] [address] Studies Level /2017 [facility] [place] Laboratory Carbon 18 mEq/L 21 - 31 08/[address] [facility] [address] Studies Dioxide Level /2017 [facility] [place] Laboratory Calcium Level 8.7 mg/dL 8.5 - 10.5 08/[address] [facility] [address] Studies /2017 [facility] [place] Laboratory Blood Urea 33 mg/dL 6 - 20 08/[address] [facility] [address] Studies Nitrogen /2017 [facility] [place] Laboratory Aspartate 69 IU/L 10 - 42 08/[address] [facility] [address] Studies Amino Transf /2017 [facility] (AST/SGOT) [place] Laboratory Alkaline 165 IU/L 42 - 121 08/[address] [facility] [address] Studies Phosphatase /2017 [facility] [place] Laboratory Albumin/Globu 0.7 1.1 - 1.8 08/[address] [facility] [address] Studies josé antonio Ratio /2017 [facility] [place] Laboratory Albumin 2.5 g/dL 3.2 - 5.5 08/[address] [facility] [address] Studies /2017 [facility] [place] Laboratory Alanine 38 IU/L 10 - 60 08/[address] [facility] [address] Studies Aminotransfer /2017 [facility] ase [place] (ALT/SGPT) Laboratory Vitamin B12 789 pg/ml 180 - 914 08/[address] [facility] [address] Studies Level /2017 [facility] [place] Laboratory Transferrin % 43.6 % 20.0 - [address] [facility] [address] Studies Saturation 50.0 [facility] [place] Laboratory Transferrin 146 mg/dL 192 - 382 08/[address] [facility] [address] Studies /2017 [facility] [place] Laboratory Total Iron 204 ug/dL 250 - 460 08/[address] [facility] [address] Studies Binding /2017 [facility] Capacity [place] Laboratory Thyroid 4.13 uIU/mL 0.34 - [address] [facility] [address] Studies Stimulating 5.60 /2017 [facility] Hormone (TSH) [place] Laboratory Serum Folate 13.4 ng/ml 5.21 08/[address] [facility] [address] Studies /2017 [facility] [place] Laboratory Iron Level 89.0 ug/dL 28 - 170 08/[address] [facility] [address] Studies /2017 [facility] [place] Laboratory Ferritin 559.3 ng/ml 11.0 - 08/[address] [facility] [address] Studies 306.8 [facility] [place] Laboratory Percent 1.56 % 0.4 - 2.05 08/[address] [facility] [address] Studies Reticulocyte /2017 [facility] Count [place] Laboratory Absolute 0.05 M/uL 0.02 - 08/[address] [facility] [address] Studies Reticulocyte 0.11 [facility] Count [place] Laboratory Urine WBC null 08/[address] [facility] [address] Studies [facility] [place] Laboratory Urine null 08/[address] [facility] [address] Studies Squamous [facility] Epithelial [place] Cells Laboratory Urine RBC null 08/[address] [facility] [address] Studies [facility] [place] Laboratory Urine Culture Urine 08/[address] [facility] [address] Studies Reflexed Culture /2017 [facility] Reflexed [place] Laboratory Urine null 08/[address] [facility] [address] Studies Bacteria /2017 [facility] [place] Laboratory Urine Urine 08/[address] [facility] [address] Studies Amorphous Amorphous [facility] - Sediment Sediment [place] Laboratory Urine pH 6.0 08/[address] [facility] [address] Studies [facility] [place] Laboratory Urine 1.0 mg/dL 08/[address] [facility] [address] Studies Urobilinogen /2017 [facility] [place] Laboratory Urine Total Urine Total 08/[address] [facility] [address] Studies Protein Protein [facility] [place] Laboratory Urine 1.010 08/[address] [facility] [address] Studies Specific /2017 [facility] [place] Laboratory Urine Nitrite Urine 08/[address] [facility] [address] Studies Nitrite [facility] [place] Laboratory Urine Urine 08/[address] [facility] [address] Studies Leukocyte Leukocyte [facility] Esterase Esterase [place] Laboratory Urine Ketones Urine 08/[address] [facility] [address] Studies Ketones [facility] [place] Laboratory Urine Glucose Urine 08/[address] [facility] [address] Studies Glucose [facility] [place] Laboratory Urine Color Urine Color 08/[address] [facility] [address] Studies [facility] [place] Laboratory Urine Blood Urine Blood 08/[address] [facility] [address] Studies [facility] [place] Laboratory Urine Urine 08/10 [facility]. Studies Bilirubin Bilirubin [facility] [place] Laboratory Urine Urine 08/10 [facility]. Studies Appearance Appearance [facility] [place] Laboratory Urine Random 97 mEq/L 27 - 287 08/10 [facility]. Studies Sodium [facility] [place] Laboratory Urine Random 18.7 mEq/L 25 - 120 08/10 [facility]. Studies Potassium [facility] [place] Laboratory Anti-Nuclear Anti-Nuclea 08/10 [facility]. Studies Antibody r Antibody /2017 [facility] Screen Screen [place] Laboratory Anti-Nuclear Anti-Nuclea 08/10 [facility]. Studies Antibody r Antibody /2017 [id number] - Pattern 2 Pattern 2 [place] Laboratory Urine Random 14 mg/dl 08/09 [facility]. Studies Total Protein [facility] [place] Laboratory Urine 27.5 mg/dL 08/09 [facility]. Studies Creatinine [facility] [place] Laboratory Troponin I null 08/08 [facility]. Studies /2017 [facility] [place] Laboratory Other Total 8.9 g/dl - 08/08 [facility]. Studies Hemoglobin [facility] - (Blood Gas) [place] Laboratory Blood Gas pH 7.43 7.35 - 08/08 [facility]. Studies 7.45 [facility] [place] Laboratory Blood Gas PO2 131.0 mmHG 75 - 100 08/08 [facility]. Studies /2017 [facility] [place] Laboratory Blood Gas 30.3 mmHG 35 - 45 08/08 [facility]. Studies PCO2 [facility] [place] Laboratory Blood Gas 95.2 % 94 - 97 08/08 [facility]. Studies Oxyhemoglobin /2017 [facility] [place] Laboratory Blood Gas 30.0 % 08/08 [facility]. Studies Inspired [facility] Oxygen [place] Laboratory Blood Gas 19.9 mmol/L 22 - 28 08/08 [facility]. Studies HCO3 [facility] [place] Laboratory Blood Gas -3.7 mmol/L 08/08 [facility]. Studies Base Excess /2017 [facility] [place] Laboratory Arterial 1.7 % 0 - 1.5 08/08 [facility]. Studies Blood [facility] - Methemoglobin [place] Laboratory Arterial 1.8 % 0 - 1.5 08/08 [facility]. Studies Blood [id number] - Carboxyhemogl [place] obin Laboratory Arterial Bld 98.7 % 92 - 98.5 08/08 [facility]. Studies O2 Saturation [facility] - (Measur) [place] Laboratory Urine Urine 08/07 [facility]. Studies [facility] Test Test [place] Laboratory Blood Blood 08/07 [facility]. Studies Morphology Morphology [facility] - Comment Comment [place] Laboratory Rapid null 08/07 [facility]. Studies Troponin I [facility] [place] Laboratory Lactic Acid 10.8 mg/dL 4.5 - 19.8 08/[address] [facility] [address] Studies Level /2017 [facility] [place] Laboratory Prothrombin 13.7 9.5 - 12.5 08/07 [facility]. Studies Time SECONDS [facility] [place] Laboratory INR 1.16 08/07 [facility]. Studies International [facility] - Normalized [place] Ratio Laboratory Activated 37.6 24.3 - 08/07 [facility]. Studies Partial SECONDS 36.9 [facility] Thromboplast [place] Time Laboratory B-Type 646 pg/ml 08/07 [facility]. Studies Natriuretic [facility] Peptide [place] Laboratory Direct 0.8 mg/dL 0 - 0.2 08/07 [facility]. Studies Bilirubin [facility] [place] Laboratory Creatine 52 IU/L 22 - 269 08/07 [facility]. Studies Kinase /2017 [facility] [place] Laboratory Lipase 85 U/L 22 - 51 08/[address] [facility] [address] Studies /2017 [facility] [place] Vital Signs Vital Sign Value Date Comments Source Height 67 08/12/2017 [facility] Weight 193.40 08/12/2017 [facility] [place] Temperature Oral (F) 97.5 F 08/12/[address] [facility] [address] [facility] [place] Heart Rate 79 08/12/2017 [facility] [place] Respitory Rate 18 08/12/[address] [facility] [address] [facility] [place] Systolic (mm Hg) 152 08/12/[address] [facility] [address] [facility] [place] Diastolic (mm Hg) 80 08/12/[address] [facility] [address] [place] [facility] [place] Encounters Location Location Encounter Encounter Reason Attending ADM DC Status Source Details Type Number For Provider Date Date Visit [facility]. Discharged [id number] 08/07 08/12 [facility] [place] Mi Procedures Procedure Code Date Perfomer Comments Source Chest Single [id number] [facility] [place] [id number] [facility] [place] Olla Count [id number] [facility] [place] Anaerobic Blood [id number] [facility] Culture 8 [place] Aerobic Blood [id number] [facility] [place] Head Brain Wo [id number] [facility] Cont 8 [place] Chest Single [id number] [facility] [place]
--- OUTSIDE RECORDS SUMMARY | 2018-05-19 14:47 | XMS REPORT | Summary of Care ---
:1965 Author Name KAELYN VILLAGOMEZ N.P. Address [facility] Unavailable , Care Team Providers Name Role Phone PATRICIA CABALLERO M.D. Unavailable Unavailable Unavailable Unavailable Unavailable Functional Status Name Dates Details Functional status health issues are not documented Status: Name Dates Details Cognitive status health issues are not documented Status: Problems Name Dates Details Diabetes (250.00, E11.9) Status: Active End stage renal disease (585.6, N18.6) Status: Active Medications Name Dates Details Abilify TABS Refills: 0 Active Nepro Oral Liquid Refills: 0 Active Ascorbic Acid TABS Refills: 0 Active Pepcid AC TABS Refills: 0 Active Nystatin POWD Refills: 0 Active HumaLOG SOLN Refills: 0 Active Propranolol HCl TABS Refills: 0 Active Lactulose SOLN Refills: 0 Active Levemir SOLN Refills: 0 Active Wellbutrin TABS Refills: 0 Active Jnjfnfwa-Jjssklmbb-Lolrnqozpm OINT Refills: 0 Active Gabapentin TABS Refills: [...] CVRAD - Bilateral [place] Mapping - [id number] Date: 07-Mar-2018 History of Section Completed History [...] Details Planned Observations Planned Goals not documented Interventions Provided InstructionsPatient Specific Education Given; Done: 02 May 2018PlanReviewed the following results today:[facility] Vein mapping (dated 03/07/2018)I evaluated Ms. Brice today for Instructions Name Dates Details Instructions not documented Encounters Appointment; PATRICIA CABALLERO M.D. On: 07-Mar-2018 8:00 Encounter Diagnosis: Problem not documented Appointment; [facility] On: 07-Mar-2018 9:00 Encounter Diagnosis: Problem not documented Appointment; PATRICIA CABALLERO M.D. On: 02-May-2018 10:15 Encounter Diagnosis: Problem not documented
[2018-05-19] MEDS ORDERED: FENTANYL CITR 100 MCG/2 ML ONE ×2 (15:12→16:13)
[2018-05-19] MEDS ORDERED: ONDANSETRON 4 MG/2 ML VIAL ONE (15:12)
[2018-05-19 15:37] LABS: Potassium 4.1 mmol/L (3.5-5.1)
--- NOTE | 2018-05-19 16:08 | RAD REPORT ---
EXAM DESCRIPTION: RAD - Pelvis - 05/19/2018 3:42 pm CLINICAL HISTORY: Pelvic pain status post injury FINDINGS: No fracture or dislocation is seen. The bones are osteoporotic If the patient continues to have symptoms to suggest an occult fracture then a MRI would be recommend ed
--- NOTE | 2018-05-19 16:08 | RAD REPORT ---
EXAM DESCRIPTION: CT - Tib Fib Left Wo Con - 05/19/2018 3:44 pm CLINICAL HISTORY: Left leg pain and swelling COMPARISON: None. TECHNIQUE: Computed axial tomography of the left lower extremity with coronal and sagittal reconstru ction All CT scans are performed using dose optimization technique as appropriate and may include automated exposure control or mA/KV adjustment according to patient size. FINDINGS: No fracture is seen. The bones are osteoporotic No bony destructive lesion noted. A 10 x 4 x 8 centimeter (cc by AP by trans) fluid collection is present within the posterior calf. Diffuse edema is present within the subcutaneous tissues IMPRESSION: 10 centimeter fluid collection within the posterior calf probably represents a hematoma. Diffuse edema within the subcutaneous tissues could indicate a cellulitis or be secondary to venous s tasis
--- NOTE | 2018-05-19 16:09 | RAD REPORT ---
EXAM DESCRIPTION: [place] Single View05/19/2018 3:42 pm CLINICAL HISTORY: Shortness of breath COMPARISON: January 2018 FINDINGS: The lungs appear clear of acute infiltrate. The heart is normal size. A central venous ca theter remains in place IMPRESSION: No acute abnormalities displayed
[2018-05-19 16:20] LABS: Absolute Lymphocytes (CBC) 0.7 K/uL (0.7-4.9); Absolute Monocytes 0.5 K/uL (0.1-1.3); Absolute Neutrophil 2.7 K/uL (1.8-8.0); Basophils % 0.7 % (0-1.3); Eosinophils % 1.1 % (0-4.4); Hematocrit 24.6 % (36.0-45.0); Lymphocytes % 17.2 % (15.3-44.8); MPV 8.2 fL (7.6-11.3); Monocytes % 11.7 % (3.3-12.3)
[2018-05-19 16:27] LABS: Protime INR 1.42
[2018-05-19] MEDS ORDERED: HYDROMORPHONE HCL 0.5 MG/0.5 ML INJ ONE (16:40)
[2018-05-19 17:08] LABS: Blood Morphology Comment NOTED (NOT SEEN); Platelet Estimate DECR; Urine White Blood Cell Casts OK
[2018-05-19 17:09] LABS: Anisocytosis 2+; Burr Cells 1+; Macrocytosis 1+; Poikilocytosis SLIGHT; Polychromasia SLIGHT
[2018-05-19] MEDS ORDERED: LIDOCAINE 1% 20 ML MDV ONE (18:30)
--- NOTE | 2018-05-19 18:54 | EDPHYS ---
Physician Documentation [facility] Name: Ernestina Mackay Age: 52 yrs Sex: Female : 1965 Arrival Date: 05/19/2018 Time: 14:44 Bed 5 Private MD: ED Physician Rosario Alonzo HPI: 05/19 16:55 This 52 yrs old Female presents to ER via EMS with complaints of Leg Pain. jr8 16:55 Onset: The symptoms/episode began/occurred acutely, today. Modifying factors: The jr8 symptoms are alleviated by nothing. the symptoms are aggravated by nothing. Associated signs and symptoms: The patient has no apparent associated signs or symptoms. Severity of symptoms: At their worst the symptoms were moderate. The patient has not experienced similar symptoms in the past. The patient has not recently seen a physician. 17:07 Patient brought in by EMS after complaining of severe pain to left lower calf region. jr8 Denies injury to leg that she knew of. Patient stated that she had controlled fall by dialysis staff earlier when she lost balance while trying to use bathroom. Stated that two people had assisted her to the ground and then got her back into a chair. Otherwise has had no other falls recently. Only complains of pain to left leg. 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 LMP N/A - Post-menopause jl7 Historical: - Allergies: 14:48 NKDA; ss - Home Meds: 14:59 Abilify 5 mg Oral tab 1 tab every tuesday [Active]; gabapentin 100 mg Oral cap 1 caps jl7 twice a day [Active]; Humalog sliding scale Sub-Q twice a day [Active]; lactulose 10 gram/15 mL (15 mL) Oral soln 30 mL 30 Ml by mouth three times a day on tuesday, tuesday, , and tuesday due to cirrhosis [Active]; Levemir 100 unit/mL subcutaneous soln 25 Units SQ every morning for Type 2 Diabetes Mellitus [Active]; meclizine 12.5 mg Oral tab 2 tabs 2 times per day [Active]; neomycin 500 mg Oral tab 3 tabs daily [Active]; Nepro Carb Steady 0.08-1.80 gram-kcal/mL Oral liqd [Active]; Pepcid 20 mg Oral tab 1 tab once daily [Active]; propranolol 10 mg Oral tab 1 tab twice a day [Active]; Wellbutrin SR 150 mg Oral TbER 1 tab 2 times per day [Active]; Zoloft 50 mg Oral tab 1 tab once daily [Active]; - PMHx: 14:48 Anemia; Anxiety; Cellulitis; CHF; Chronic pain; Cirrhosis; Depression; Diabetes - ss NIDDM; Dialysis; Hepatitis; Hypertension; insomnia; - Immunization history:: Adult Immunizations up to date. - Social history:: Smoking status: . - Ebola Screening: : No symptoms or risks identified at this time. ROS: 17:07 Eyes: Negative for injury, pain, redness, and discharge, ENT: Negative for injury, jr8 pain, and discharge, Neck: Negative for injury, pain, and swelling, Cardiovascular: Negative for chest pain, palpitations, and edema, Respiratory: Negative for shortness of breath, cough, wheezing, and pleuritic chest pain, Abdomen/GI: Negative for abdominal pain, nausea, vomiting, diarrhea, and constipation, Back: Negative for injury and pain, Skin: Negative for injury, rash, and discoloration, Neuro: Negative for headache, weakness, numbness, tingling, and seizure. 17:07 MS/extremity: Positive for ecchymosis, pain, swelling, tenderness, of the left leg. Exam: 17:07 Eyes: Pupils equal round and reactive to light, extra-ocular motions intact. Lids and jr8 lashes normal. Conjunctiva and sclera are non-icteric and not injected. Cornea within normal limits. Periorbital areas with no swelling, redness, or edema. ENT: Nares patent. No nasal discharge, no septal abnormalities noted. Tympanic membranes are normal and external auditory canals are clear. Oropharynx with no redness, swelling, or masses, exudates, or evidence of obstruction, uvula midline. Mucous membranes moist. Neck: Trachea midline, no thyromegaly or masses palpated, and no cervical lymphadenopathy. Supple, full range of motion without nuchal rigidity, or vertebral point tenderness. No Meningismus. Cardiovascular: Regular rate and rhythm with a normal S1 and S2. No gallops, murmurs, or rubs. Normal PMI, no JVD. No pulse deficits. Respiratory: Lungs have equal breath sounds bilaterally, clear to auscultation and percussion. No rales, rhonchi or wheezes noted. No increased work of breathing, no retractions or nasal flaring. Abdomen/GI: Soft, non-tender, with normal bowel sounds. No distension or tympany. No guarding or rebound. No evidence of tenderness throughout. Back: No spinal tenderness. No costovertebral tenderness. Full range of motion. Skin: Warm, dry with normal turgor. Normal color with no rashes, no lesions, and no evidence of cellulitis. Neuro: Awake and alert, GCS 15, oriented to person, place, time, and situation. Cranial nerves II-XII grossly intact. Motor strength 3/5 in all extremities. Sensory grossly intact. 17:07 Musculoskeletal/extremity: Extremities: grossly normal except: noted in the left leg: Patient has swollen calf with obvious large hematoma present to the posterior calf region. No abrasion or laceration noted. Bruising to posterior calf as well. Very tender to touch. No other trauma noted. No obvious deformity , Pulses: noted to be 2+ in the right dorsalis pedis artery and left dorsalis pedis artery, Sensation intact. Compartment Syndrome exam of affected extremity: no numbness, no tingling, no sensation deficit, no palor, no weak pulses, severe pain, with active ROM. Vital Signs: 14:49 BP 140 / 64; Pulse 85; Resp 22 S; Pulse Ox 100% on R/A; Pain 10/10; jl7 15:51 BP 118 / 65; Pulse 75; Resp 17; Pulse Ox 100% on R/A; tw2 16:06 Temp 97.8(TE); tw2 17:05 BP 116 / 62; Pulse 84; Resp 17; Pulse Ox 100% on R/A; tw2 17:58 BP 107 / 62; Pulse 83; Resp 17; Pulse Ox 99% on R/A; tw2 19:25 BP 97 / 60; Pulse 81; Resp 16; Temp 97.8; Pulse Ox 99% on R/A; ak1 MDM: 14:57 Patient medically screened. jr8 17:13 Data reviewed: vital signs, nurses notes, lab test result(s), radiologic studies, CT jr8 scan, plain films. Data interpreted: Pulse oximetry: on room air is 100 %. Interpretation: normal. Counseling: I had a detailed discussion with the patient and/or guardian regarding: the historical points, exam findings, and any diagnostic results supporting the discharge/admit diagnosis, lab results, radiology results. ED course: Dr. Ashby consulted and is reviewing CT and will see patient in ED since patient is having pain out of proportion to exam . 18:49 ED course: Dr. sAhby saw patient in ED. Both in agreement that patient needs needle jr aspiration. We were able to drain approximately 300 cc of blood out of posterior calf. Pressure dressing applied. Patient's pain improved. Will admit to Dr. Noyola. Dr. Polo notified and is calling him. Dr. Ashby with consult . 05/19 14:58 Order name: CBC with Diff [facility] 05/19 14:58 Order name: Basic Metabolic Panel [facility] 05/19 14:58 Order name: Protime (+inr) [facility] 05/19 14:58 Order name: Ptt, Activated [facility] 05/19 15:37 Order name: Basic Metabolic Panel; Complete Time: 16:04 [facility] 05/19 16:28 Order name: Protime (+INR); Complete Time: 16:28 [facility] 05/19 16:28 Order name: PTT, Activated Partial Thromb; Complete Time: 16:28 [facility] 05/19 16:36 Order name: CBC with Automated Diff; Complete Time: 17:15 [facility] 05/19 17:08 Order name: TS 05/19 17:11 Order name: CBC Smear Scan; Complete Time: 17:15 [facility] 05/19 18:28 Order name: Type and Screen [facility] 05/19 18:54 Order name: Hemoglobin 05/19 19:29 Order name: Hemoglobin [facility] 05/19 14:58 Order name: IV; Complete Time: 15:01 [facility] 05/19 14:59 Order name: XRAY Chest (1 view) [facility] 05/19 14:59 Order name: XRAY Pelvis [facility] 05/19 15:52 Order name: Labs - recollect needed; Complete Time: 16:02 05/19 16:10 Order name: CT; Complete Time: 16:22 [facility] 05/19 16:10 Order name: RAD; Complete Time: 16:22 [facility] 05/19 16:10 Order name: RAD; Complete Time: 16:22 EDMS Administered Medications: 15:07 Drug: Zofran 4 mg Route: IVP; Site: right forearm; jl7 16:06 Follow up: Response: No adverse reaction tw2 15:08 Drug: fentaNYL (PF) 50 mcg Route: IVP; Site: right forearm; jl7 16:06 Follow up: Response: No adverse reaction; Pain is unchanged, physician notified tw2 16:06 Drug: fentaNYL (PF) 50 mcg Route: IVP; Site: right wrist; tw2 16:30 Follow up: Response: Pain is unchanged, physician notified tw2 16:35 Drug: Dilaudid 0.5 mg Route: IVP; Site: right wrist; tw2 18:54 Follow up: Response: No adverse reaction; Pain is decreased tw2 18:30 Drug: Lidocaine (1 %) 1 vials Volume: 20 ml; Route: Infiltration; tw2 Disposition: 05/19/18 18:53 Hospitalization ordered by Zohreh Michael for Observation. Preliminary diagnosis are Hematoma Left Calf, Anemia . - Bed requested for Telemetry/MedSurg (observation). - Status is Observation. ak1 - Condition is Stable. - Problem is new. - Symptoms have improved. UTI on Admission? No Addendum: 05/22/2018 07:03 Co-signature as Attending Physician, Rosario Alonzo MD. m a2 Signatures: Dispatcher [employer] EDDC Corazon Mccauley RN RN kl Smirch, Shelby RN ESSIE Rafael Celis PA PA jr8 Dina Lopez RN RN ak1 Louise Baez RN RN tw2 Tana Avendaño RN RN jl7 Rosario Alonzo MD MD [facility] Virginie Casey Corrections: (The following items were deleted from the chart) 05/19 16:31 16:30 TYPE AND SCREEN+[id number].LAB.BRZ ordered. EDDC EDMS 20:05 18:53 Hospitalization Ordered by Zohreh Michael MD for Observation. Preliminary kl diagnosis is Hematoma Left Calf; Anemia . Bed requested for Telemetry/MedSurg (observation). Status is Observation. Condition is Stable. Problem is new. Symptoms have improved. UTI on Admission? No. jr8 21:26 20:05 05/19/2018 18:53 Hospitalization Ordered by Zohreh Michael MD for Observation. ak1 Preliminary diagnosis is Hematoma Left Calf; Anemia . Bed requested for Telemetry/MedSurg (observation). Status is Observation. Condition is Stable. Problem is new. Symptoms have improved. UTI on Admission? No. kl
--- NOTE | 2018-05-19 18:54 | ER ---
Nurse's Notes [facility] Name: Ernestina Mackay Age: 52 yrs Sex: Female : 1965 Arrival Date: 05/19/2018 Time: 14:44 Bed 5 Private MD: Diagnosis: Hematoma Left Calf;Anemia Presentation: 05/19 14:45 Presenting complaint: EMS states: L lower leg pain that began last night. Pt was at Dialysis when she went to the restroom, became weak and was assisted to the ground by staff. EMS noted a large hematoma to the affected area. Pt does not know when hematoma first started. Transition of care: patient was not received from another setting of care. Onset of symptoms is unknown. Risk Assessment: Do you want to hurt yourself or someone else? Patient reports no desire to harm self or others. Initial Sepsis Screen: Does the patient meet any 2 criteria? No. Patient's initial sepsis screen is negative. Does the patient have a suspected source of infection? No. Patient's initial sepsis screen is negative. Care prior to arrival: None. 14:45 Method Of Arrival: EMS: 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 LMP N/A - Post-menopause jl7 Historical: - Allergies: 14:48 NKDA; ss - Home Meds: 14:59 Abilify 5 mg Oral tab 1 tab every tuesday [Active]; gabapentin 100 mg Oral cap 1 caps jl7 twice a day [Active]; Humalog sliding scale Sub-Q twice a day [Active]; lactulose 10 gram/15 mL (15 mL) Oral soln 30 mL 30 Ml by mouth three times a day on tuesday, tuesday, , and tuesday due to cirrhosis [Active]; Levemir 100 unit/mL subcutaneous soln 25 Units SQ every morning for Type 2 Diabetes Mellitus [Active]; meclizine 12.5 mg Oral tab 2 tabs 2 times per day [Active]; neomycin 500 mg Oral tab 3 tabs daily [Active]; Nepro Carb Steady 0.08-1.80 gram-kcal/mL Oral liqd [Active]; Pepcid 20 mg Oral tab 1 tab once daily [Active]; propranolol 10 mg Oral tab 1 tab twice a day [Active]; Wellbutrin SR 150 mg Oral TbER 1 tab 2 times per day [Active]; Zoloft 50 mg Oral tab 1 tab once daily [Active]; - PMHx: 14:48 Anemia; Anxiety; Cellulitis; CHF; Chronic pain; Cirrhosis; Depression; Diabetes - ss NIDDM; Dialysis; Hepatitis; Hypertension; insomnia; - Immunization history:: Adult Immunizations up to date. - Social history:: Smoking status: . - Ebola Screening: : No symptoms or risks identified at this time. Screenin:50 Abuse screen: Denies threats or abuse. Denies injuries from another. Nutritional jl7 screening: No deficits noted. Tuberculosis screening: No symptoms or risk factors identified. Fall Risk Fall in past 12 months (25 points). Secondary diagnosis (15 points) weakness. IV access (20 points). Ambulatory Aid- None/Bed Rest/Nurse Assist (0 pts). Gait- Weak (10 pts.). Mental Status- Oriented to own ability (0 pts). Total Montes Fall Scale indicates. Assessment: 14:53 General: Appears uncomfortable, Behavior is cooperative, anxious, crying. Pain: jl7 Complains of pain in left calf Pain currently is 10 out of 10 on a pain scale. Neuro: Level of Consciousness is awake, alert, obeys commands. Cardiovascular: Patient's skin is warm and dry. Respiratory: Airway is patent Respiratory effort is even, unlabored, Respiratory pattern is regular, symmetrical. Derm: Skin is dry, Skin is yellow, Skin temperature is warm. Musculoskeletal: Swelling appears to be a large hematoma to left calf. 15:51 Reassessment: Patient appears in no apparent distress at this time. Patient and/or tw2 family updated on plan of care and expected duration. Pain level reassessed. Patient is alert, oriented x 3, equal unlabored respirations, skin warm/dry/pink. 17:05 Reassessment: Patient and/or family updated on plan of care and expected duration. Pain tw2 level reassessed. Patient is alert, oriented x 3, equal unlabored respirations, skin warm/dry/pink. Patient states feeling better. 17:59 Reassessment: Patient and/or family updated on plan of care and expected duration. Pain tw2 level reassessed. Patient is alert, oriented x 3, equal unlabored respirations, skin warm/dry/pink. Patient states feeling better. 18:30 Reassessment: assisted provider LEO Horner and Dr. Ashby at bedside with simple tw2 needle aspiration from LEFT posterior calf, resulting in approximately 300 ml blood drained. pt tolerated well, compression dressing applied by LEO Horner. 20:28 Reassessment: attempted to call report, waiting for nurse to call back for report. ak1 Vital Signs: 14:49 BP 140 / 64; Pulse 85; Resp 22 S; Pulse Ox 100% on R/A; Pain 10/10; jl7 15:51 BP 118 / 65; Pulse 75; Resp 17; Pulse Ox 100% on R/A; tw2 16:06 Temp 97.8(TE); tw2 17:05 BP 116 / 62; Pulse 84; Resp 17; Pulse Ox 100% on R/A; tw2 17:58 BP 107 / 62; Pulse 83; Resp 17; Pulse Ox 99% on R/A; tw2 19:25 BP 97 / 60; Pulse 81; Resp 16; Temp 97.8; Pulse Ox 99% on R/A; ak1 ED Course: 14:44 Patient arrived in ED. ss 14:47 Triage completed. ss 14:48 Tana Avendaño, RN is Primary Nurse. jl7 14:48 Arm band placed on left wrist. ss 14:50 Patient has correct armband on for positive identification. Placed in gown. Bed in low jl7 position. Call light in reach. Side rails up X2. transformation specialist on. Pulse ox on. NIBP on. Warm blanket given. 14:50 Initial lab(s) drawn, by ED staff, sent to lab. Inserted saline lock: 20 gauge in right jl7 forearm, using aseptic technique. Blood collected. Inserted by Earnestine quality assurance qa lab technician. 14:57 Rafael Celis PA is PHCP. jr8 14:57 Rosario Alonzo MD is Attending Physician. jr8 15:38 Primary Nurse role handed off by Tana Avendaño, ESSIE tw2 15:38 Louise Baez, ESSIE is Primary Nurse. tw2 15:41 X-ray completed. Patient tolerated procedure well. CT completed. Patient tolerated vr procedure well. Patient moved to radiology via stretcher. Patient moved to CT via stretcher. Patient moved back from CT. 17:17 TS Sent. tw2 18:52 Zohreh Michael MD is Hospitalizing Provider. jr8 19:05 Report given to ESSIE Arroyo. tw2 19:23 No provider procedures requiring assistance completed. Patient admitted, IV remains in ak1 place. Administered Medications: 15:07 Drug: Zofran 4 mg Route: IVP; Site: right forearm; jl7 16:06 Follow up: Response: No adverse reaction tw2 15:08 Drug: fentaNYL (PF) 50 mcg Route: IVP; Site: right forearm; jl7 16:06 Follow up: Response: No adverse reaction; Pain is unchanged, physician notified tw2 16:06 Drug: fentaNYL (PF) 50 mcg Route: IVP; Site: right wrist; tw2 16:30 Follow up: Response: Pain is unchanged, physician notified tw2 16:35 Drug: Dilaudid 0.5 mg Route: IVP; Site: right wrist; tw2 18:54 Follow up: Response: No adverse reaction; Pain is decreased tw2 18:30 Drug: Lidocaine (1 %) 1 vials Volume: 20 ml; Route: Infiltration; tw2 Outcome: 18:53 Decision to Hospitalize by Provider. jr8 19:23 Condition: stable ak1 19:23 Instructed on the need for admit. 21:26 Patient left the ED. ak1 Signatures: Macie Middleton RN RN ss Davis, Victoria vr Roszak, Josh, PA PA jr8 Dina Lopez RN RN ak1 Louise Baez RN RN tw2 Tana Avendaño RN RN jl7
--- NOTE | 2018-05-19 20:20 | P.HP ---
Certification for Inpatient With expected LOS: <2 Midnights Practitioner: I am a practitioner with admitting privileges, knowledge of patient current condition, hospital course, and medical plan of care. Services: Services provided to patient in accordance with Admission requirements found in Title 42 Section 412.3 of the Code of Federal Regulations Patient History Date of Service: 05/19/18 Reason for admission: left calf hematoma History of Present Illness: Ms Barahona is a 52 years old woman with multiple medical problems including DM II, HTN, ESRD on HD, liver cirrhosis chronic thrombocytopenia, chronic anemia, who start with left calf pain and swelling last night. Her symptoms got worse today, she was on dyalisis today, when she become weak and lethargic. 911 was called and subsequently transferred to ED. Ho history of fever or chills. CT shows left calf large fluid collection, consistent with an hematoma. She does not remember have any recent trauma on her left leg. Initial Hgb was 8.2 mg/dl. subsequent Hgb 4 hours later, was 7.3 mg/dl. BP on the lower side 107/62. Dr Ashby evaluated the patient in ER, and performed needle aspiration, removing 300 cc of blood. Allergies adhesive Allergy (Verified 02/08/18 11:51) blister No Known Drug Allergies Allergy (Verified 01/20/18 23:06) Unknown Home medications list reviewed: Yes Home Medications: Acetaminophen [Tylenol] 2 tab PO Q6H PRN 01/21/18 Famotidine 20 mg PO BEDTIME 01/21/18 Insulin Detemir [Levemir] 25 unit SQ DAILY WITH BREAKFAST 01/21/18 Insulin Lispro [Admelog] 100 unit SQ SEECOM 01/21/18 Lactulose [Enulose] 30 ml PO TID 01/21/18 Neomycin 500mg 3 tab PO DAILY 01/21/18 Nystatin 100,000 unit TOP BID 01/21/18 Propranolol [Inderal*] 20 mg PO SEECOM 01/21/18 ARIPiprazole [Abilify*] 7.5 mg PO SEECOM 02/06/18 Folic Acid/Vitamin B Comp W-C [Nephro-Dulce Tablet] 1 tab PO DAILY 02/06/18 Sertraline [Zoloft*] 50 mg PO DAILY 02/06/18 Buproprion S.r. [Wellbutrin Sr*] 150 mg PO BID tab 02/13/18 Gabapentin [Neurontin*] 100 mg PO BID PRN #30 cap 02/13/18 Lidocaine 5% Patch [Lidoderm 5% Patch*] 1 patch TOP DAILY #30 patch 02/13/18 Rifaximin [Xifaxan] 550 mg PO BID #60 tablet 02/13/18 - Past Medical/Surgical History Diabetic: Yes -: Hepatitis C with Cirrhosis of liver -: CHF -: HTN -: Hypothyroidism -: GERD -: Peptic Ulcer -: UTI, Recurrent -: Chronic back pain -: Anxiety/Depression -: UTI, Recurrent -: Chronic back pain -: Anxiety/Depression -: Cardiac Cath -: -: Tonsillectomy Psychosocial/ Personal History: Lives by herself. Currently at longterm - Family History Mother -: Heart disease, Other (see notes) Notes: Anxiety Father -: Diabetes - Social History Smoking Status: Never smoker Alcohol use: No Caffeine use: Yes Place of Residence: Home Review of Systems 10-point ROS is otherwise unremarkable Physical Examination - Physical Exam General: Alert, In no apparent distress HEENT: Atraumatic, PERRLA, Mucous membr. moist/pink, EOMI, Sclerae nonicteric Neck: Supple, 2+ carotid pulse no bruit, No LAD, Without JVD or thyroid abnormality Respiratory: Clear to auscultation bilaterally, Normal air movement Cardiovascular: Regular rate/rhythm, Normal S1 S2 Gastrointestinal: Normal bowel sounds, No tenderness Musculoskeletal: No tenderness, Tenderness (left calf tenderness.) Integumentary: No rashes Neurological: Normal gait, Normal speech, Normal strength at 5/5 x4 extr, Normal tone, Normal affect Lymphatics: No axilla or inguinal lymphadenopathy - Studies Laboratory Data (last 24 hrs) 05/19/18 18:58: Hgb 7.3 L* 05/19/18 16:00: PT 16.8 H, INR 1.42, APTT 67.3 H 05/19/18 16:00: WBC 3.9 L, Hgb 8.2 L, Hct 24.6 L, Plt Count 45 L* 05/19/18 15:06: Sodium 137, Potassium 4.1, BUN 23 H, Creatinine 3.17 H, Glucose 88 Assessment and Plan - Problems (Diagnosis) (1) Chronic anemia Current Visit: Yes Status: Acute (2) Acute blood loss anemia Current Visit: Yes Status: Acute (3) Hematoma Current Visit: Yes Status: Acute (4) Diabetes mellitus Onset Date: 09/01/17 Current Visit: No Status: Chronic Qualifiers: Diabetes mellitus type: type 2 Diabetes mellitus machine umbrella tipper insulin use: without machine umbrella tipper use Diabetes mellitus complication status: without complication Qualified Code(s): E11.9 - Type 2 diabetes mellitus without complications (5) ESRD (end stage renal disease) on dialysis Onset Date: 10/25/17 Current Visit: No Status: Chronic (6) Hypotension Onset Date: 12/15/15 Current Visit: No Status: Chronic Qualifiers: Hypotension type: hypotension due to hypovolemia Qualified Code(s): I95.89 - Other hypotension; E86.1 - Hypovolemia (7) Liver cirrhosis Onset Date: 02/16/16 Current Visit: No Status: Chronic Qualifiers: Hepatic cirrhosis type: unspecified hepatic cirrhosis Ascites presence: unspecified Qualified Code(s): K74.60 - Unspecified cirrhosis of liver (8) Thrombocytopenia Onset Date: 06/07/16 Current Visit: No Status: Chronic - Plan The patient will be admitted to the hospital for close monitoring of her HH. Next blood draw will be at 2300. She may require blood transfusion. Will give josh IV fluids in the mean time. - Advance Directives Does patient have a Living Will: No Does patient have a Durable POA for Healthcare: No - Code Status/Comfort Care Code Status Assessed: Yes Code Status: Full Code
[2018-05-19] MEDS: NA CHLORIDE 0.9% 1,000 ML IV SCH (21:24)
[2018-05-19] MEDS: INSULIN -REGULAR HUMAN 50 UNIT/0.5 ML ML SQ SCH (21:24)
[2018-05-19] MEDS ORDERED: ONDANSETRON 4 MG/2 ML VIAL IV PRN (21:24)
[2018-05-19 23:12] LABS: Hematocrit 19.8 % (36.0-45.0)
[2018-05-20] MEDS ORDERED: NA CHLORIDE 0.9% 250 ML ONE (01:12)
--- NOTE | 2018-05-20 02:10 | CON ---
History Of Present Illness: Ernestina Mackay is a 52-year-old female who presented with EMS transportation to the [facility] Emergency Room with complaints of a severely swollen and painful left posterior calf. The patient is a poor historian having been given significant medications for controlling pain but indicates that she was hospitalized for 4 days at [facility] because of problems with her diabetes. She also has kidney failure and underwent a dialysis today. She described at her shelter facility that she fell in the bathroom but 2 aides were close enough to assist her with the fall going to the ground. Subsequently, she noted swelling and pain in the posterior calf and has presented with a tense, tight subcutaneous hematoma. Allergies: THE PATIENT HAS NO KNOWN ALLERGIES. Medications: Home medications were reviewed. She is not taking an anticoagulation medication. Past Medical History: Positive for anemia, anxiety, cellulitis, congestive heart failure, chronic pain, cirrhosis, depression, diabetes, dialysis, hepatitis, hypertension, insomnia. Review of Systems: The patient's only complaint is the pain she has experienced in her left lower extremity. In taking history the patient gave vague answers, not seeming to comprehend entirely the questions asked. She has not been walking since being in the hospital 4 days. She indicates she was using a walker prior to that hospitalization but has been just doing transfers since. Physical Examination: Vital Signs: Stable. HEENT: Within normal limits. Neck: Supple. Chest: Clear to auscultation. Heart: Has a regular rate and rhythm. Abdomen: Soft and nontender. Genital and Rectal: Exams are deferred. Extremities: On examination of the left lower extremity, the patient has a bulbous hematoma posterior left lower leg. It seems to begin at about the midportion of the gastrocnemius muscles and extend distally down to the level of the soleus. The palpation reveals a very fluid-filled sensation of ballottement without firmness that one frequently sees in a hemorrhagic clot within a hematoma. Neurovascular exam was intact with the patient able to demonstrate dorsiflexion of toes, normal sensation and a 1+ dorsal pedis pulse. Capillary filling was less than 3 seconds. The patient has had dialysis earlier in the day and her laboratory was remarkable for pro-time of 16.8, INR of 1.42 and a PTT of 67.3. The patient is also known to have liver disease and that is one possible cause for the spontaneous hematoma. The patient's hemoglobin was 7.3, her platelet count is 45, BUN is 23, creatinine 3.17, GFR is 16. On CT scan, a 10 x 4 x 8 cm fluid collection is present within the posterior calf representing a hematoma. Diffuse edema within the subcutaneous tissues was noted and felt possibly to be a cellulitis or secondary to venous stasis. Emergency Room Procedure: On exam, the fluid was quite mobile and there was no erythema. No heat. No indication of infection. The situation was discussed with Dr. Rula Farris, in charge in the emergency room and Taran BAILEY taking care of this patient. It was decided to proceed with an aspiration attempt even though many hematomas have clots that will obstruct the needle. The calf was suspended with a nurse supporting the heel. The posterior calf was prepped with Betadine and an 18-gauge needle was used after injecting 1% lidocaine at the point of entry with a smaller 25-gauge needle. Taran Frazier performed the aspiration by introducing the 18-gauge needle and pulling approximately 90 mL of a bloody fluid out with syringe. The syringe then was obstructed with the suctioning back and forth bringing clot material into the needle. The needle was withdrawn. The hematoma was so thinly clotted that expressing blood with outside pressure was possible through the 18-gauge needle entry point. An additional 180 mL of fluid was expressed that way virtually emptying the posterior calf hematoma. The total volume was 250 mL of a bloody fluid removed to include some clot material that also exited during manual compression to expel hematoma contents. The patient is admitted for observation. Plan: Dr. Zohreh Noyola has admitted this very complex patient. A compression bandage was applied to the posterior left lower extremity and an Poncho wrap was used to provide some compression over the area to the limit recurrence of this hematoma. I will follow this patient with Dr. Noyola during hospitalization. MIKE/VANIA Voice ID: [id number] Report ID: [id number] JOY
[2018-05-20 02:51] VITALS: BMI 37.1
[2018-05-20] MEDS: NA CHLORIDE 0.9% 1,000 ML IV SCH (07:24)
[2018-05-20] MEDS: INSULIN -REGULAR HUMAN 50 UNIT/0.5 ML ML SQ SCH ×4 (07:30→21:00)
[2018-05-20] MEDS ORDERED: MECLIZINE HCL 12.5 MG TAB PO PRN (08:16)
[2018-05-20] MEDS ORDERED: FUROSEMIDE 20 MG/ 2ML VIAL IV ONE (08:20)
--- NOTE | 2018-05-20 08:38 | P.PN ---
Subjective Date of Service: 05/20/18 Primary Care Provider: correction resident; Nephrology-Dr. Tyler Chief Complaint: left calf hematoma Subjective: Other (Patient receiving second unit of blood. Overall stable.) Physical Examination - Vital Signs Temperature: 97.2 F Blood Pressure: 105/55 Pulse: 64 Respirations: 20 Pulse Ox (%): 100 - Physical Exam General: Alert, In no apparent distress, Oriented x3, Cooperative HEENT: Atraumatic Neck: Supple Respiratory: Clear to auscultation bilaterally, Normal air movement Cardiovascular: Normal pulses, Regular rate/rhythm Gastrointestinal: Normal bowel sounds, Soft and benign, Non-distended, Other ( Large pannus. Some mild bruising noted to the pannus right lower quadrant area. ) Musculoskeletal: Other (Healing hematoma to the left calf region. No bleeding noted.) Integumentary: Other (Patient has healing area to the left upper extremity) Neurological: Normal speech, Normal strength at 5/5 x4 extr, Normal tone, Normal affect - Studies Laboratory Data (last 24 hrs) 05/19/18 18:58: Hgb 7.3 L* 05/19/18 16:00: PT 16.8 H, INR 1.42, APTT 67.3 H 05/19/18 16:00: WBC 3.9 L, Hgb 8.2 L, Hct 24.6 L, Plt Count 45 L* 05/19/18 15:06: Sodium 137, Potassium 4.1, BUN 23 H, Creatinine 3.17 H, Glucose 88 Medications List Reviewed: Yes Assessment & Plan Discharge Plan: Mcfp Plan to discharge in: 48 Hours Physician Review Additional Text: Impression: 10 cm Left calf hematoma status post needle aspiration of 300 cc of blood related to assisted fall Acute on chronic anemia with thrombocytopenia complicated with liver cirrhosis with hepatitis-C End-stage renal disease on hemodialysis 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 Orthopedic consulted to further monitor. Will follow along. Will need to monitor for cellulitis. No infection noted at this time. Will have physical therapy assess ambulation. Fall precaution in place. Will discuss with orthopedics. Acute on chronic anemia with thrombocytopenia complicated with liver cirrhosis with hepatitis-C: Patient getting her 2nd unit of blood. Will monitor hemoglobin. Case discussed with nephrology. Patient will receive dialysis today. Will continue and restart her cirrhosis medication including lactulose and xifaxan. Will maintain 3-4 bowel movements per day. Will monitor for hepatic encephalopathy. End-stage renal disease on hemodialysis: Nephrology consulted. Anticipate dialysis today since she has received 2 units of blood. 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 Will continue with wound care as per prison instruction Diabetes mellitus type 2, insulin dependent: Will start insulin sliding scale. Will start basal insulin but at a reduced dose. Hypertension: Will verify and restart home medication. Depression with anxiety: Restart home medication GERD: Continue home medication Obesity, BMI 37: Address lifestyle modification education. Time Spent Managing Pts Care (In Minutes): 55
[2018-05-20] MEDS: NEOMYCIN PO SCH (09:00)
[2018-05-20] MEDS ORDERED: VANCOMYCIN 1.75 GM in NA CHLORIDE 0.9% 500 ML IVPB ONE (09:00)
[2018-05-20] MEDS ORDERED: INSULIN GLARGINE 100 UNITS/ML SQ SCH (09:00)
[2018-05-20] MEDS: BUPROPRION HCL S.R. 150MG TAB PO SCH ×2 (09:00→21:02)
[2018-05-20] MEDS: LACTULOSE 20 GM/30 ML UCUP PO SCH ×3 (09:12→21:02)
[2018-05-20] MEDS: PROPRANOLOL HCL 10 MG TAB PO SCH ×2 (09:12→21:00)
[2018-05-20] MEDS: SERTRALINE HCL 50 MG TAB PO SCH (09:12)
[2018-05-20 10:54] LABS: Absolute Lymphocytes (CBC) 0.7 K/uL (0.7-4.9); Absolute Monocytes 0.4 K/uL (0.1-1.3); Basophils % 0.7 % (0-1.3); Eosinophils % 2.6 % (0-4.4); Hematocrit 24.9 % (36.0-45.0); Lymphocytes % 20.8 % (15.3-44.8); MPV 8.4 fL (7.6-11.3); Monocytes % 12.6 % (3.3-12.3); RBC Red Blood Cell Count 2.63 M/uL (3.86-4.86)
[2018-05-20 11:05] LABS: Potassium 3.8 mmol/L (3.5-5.1)
[2018-05-20] MEDS: ALBUMIN HUMAN 25% 50 ML IV SCH ×2 (11:07→11:30)
[2018-05-20] MEDS: ACETAMINOPHEN 500 MG TAB PO PRN ×2 (13:31→18:31)
--- NOTE | 2018-05-20 13:49 | P.CNS ---
Date of Consult: 05/20/18 Reason for Consult: ESRD to resume HD and volume management Primary Care Provider: care home resident; Nephrology-Dr. Tyler Chief Complaint: left calf hematoma History of Present Illness: A 52-year-old woman [place] resident with PMHx of ESRD 2/2 hepatorenal on HD TTsat hep C and cirrhosis , hypertension, congestive heart failure, hypothyroidism, , diabetes complicated with neuropathy and nephropathy. Pt was sent from dialysis center for Lt calf swelling and pain pt slipped in the restroom with trauma to the Lt leg, in ER Hb 6.5, plt 43 300 ml aspirated from leg , recived 2 PRBCs no chest pain palpitation, nausea, vomiting or diarrhea Allergies adhesive Allergy (Verified 02/08/18 11:51) blister No Known Drug Allergies Allergy (Verified 01/20/18 23:06) Unknown Home Medications: ARIPiprazole [Abilify] 5 mg PO EVERY 7TH DAY 05/20/18 Buproprion S.r. [Wellbutrin Sr*] 150 mg PO BID 05/20/18 Famotidine [Pepcid*] 20 mg PO BEDTIME 05/20/18 Insulin Detemir [Levemir] 25 units SQ DAILY 05/20/18 Insulin Lispro [Humalog*] See Protocol SQ ACHS 05/20/18 Lactulose [Cephulac*] 20 gm PO DIRECTED 05/20/18 Meclizine HCl [Antivert*] 25 mg PO Q12H PRN 05/20/18 Neomycin 3 tab PO DAILY 05/20/18 Propranolol HCl 10 mg PO SEECOM 05/20/18 Sertraline [Zoloft*] 50 mg PO DAILY 05/20/18 - Past Medical/Surgical History Diabetic: Yes -: Hepatitis C with Cirrhosis of liver -: CHF -: HTN -: Hypothyroidism -: GERD -: Peptic Ulcer -: UTI, Recurrent -: Chronic back pain -: Anxiety/Depression -: UTI, Recurrent -: Chronic back pain -: Anxiety/Depression -: Cardiac Cath -: -: Tonsillectomy Psychosocial/ Personal History: Lives by herself. Currently at senior living - Family History Mother Medical History: Heart disease, Other (see notes) Notes: Anxiety Father Medical History: Diabetes - Social History Smoking Status: Unknown if ever smoked Alcohol use: No CD- Drugs: No Caffeine use: Yes Place of Residence: Home Physical Examination Temp Pulse Resp BP Pulse Ox 97.2 F 64 20 110/75 100 05/20/18 08:43 05/20/18 09:12 05/20/18 08:43 05/20/18 09:12 05/20/18 08:43 General: Alert, Moderate distress HEENT: Atraumatic Neck: Supple, Without JVD or thyroid abnormality Respiratory: Clear to auscultation bilaterally, Normal air movement Cardiovascular: Regular rate/rhythm, Normal S1 S2, Other (B/l LE swelling , Lt > rt ) Gastrointestinal: Normal bowel sounds, Soft and benign Laboratory Data (last 24 hrs) 05/19/18 18:58: Hgb 7.3 L* 05/19/18 16:00: PT 16.8 H, INR 1.42, APTT 67.3 H 05/19/18 16:00: WBC 3.9 L, Hgb 8.2 L, Hct 24.6 L, Plt Count 45 L* 05/19/18 15:06: Sodium 137, Potassium 4.1, BUN 23 H, Creatinine 3.17 H, Glucose 88 - Problems (1) Acute blood loss anemia Current Visit: Yes Status: Acute (2) Hematoma Current Visit: Yes Status: Acute (3) ESRD (end stage renal disease) on dialysis Onset Date: 10/25/17 Current Visit: No Status: Chronic Conclusions/Impression: A 52-year-old woman [place] resident with PMHx of ESRD 2/2 hepatorenal on HD TTsat hep C and cirrhosis , hypertension, congestive heart failure, hypothyroidism, , diabetes complicated with neuropathy and nephropathy. Pt was sent from dialysis center for Lt calf swelling and pain pt slipped in the restroom with trauma to the Lt leg, in ER Hb 6.5, plt 43 300 ml aspirated from leg , recived 2 PRBCs no chest pain palpitation, nausea, vomiting or diarrhea Assessment And Plan: End-stage renal disease. from [facility] via perm cath on TTsat Will do HD today, renal dose meds Acute anemia due to Leg hematoma surgery evaluation transfuse to keep hb.7.0 consdier platealate transfusion if cont to have hematoma Hypotension chronic will consider Midodrine during HD pt is euvolemic Diabetes as by primary.
[2018-05-20] MEDS: TRAMADOL HCL 50 MG TAB PO PRN ×2 (14:51→21:02)
[2018-05-20] MEDS ORDERED: LIDOCAINE 1% 20 ML MDV SQ ONE (15:30)
[2018-05-20] MEDS ORDERED: FENTANYL CITR 100 MCG/2 ML IV ONE ×2 (15:35→17:00)
[2018-05-20] MEDS ORDERED: NALOXONE 0.4 MG/ML VIAL ONE (15:36)
[2018-05-20] MEDS ORDERED: LIDOCAINE 1% 20 ML MDV ONE (15:36)
[2018-05-20 16:13] LABS: Absolute Lymphocytes (CBC) 0.5 K/uL (0.7-4.9); Absolute Monocytes 0.3 K/uL (0.1-1.3); Absolute Neutrophil 1.7 K/uL (1.8-8.0); Basophils % 1.2 % (0-1.3); Eosinophils % 2.3 % (0-4.4); Hematocrit 23.3 % (36.0-45.0); MPV 8.4 fL (7.6-11.3); Monocytes % 10.6 % (3.3-12.3); RBC Red Blood Cell Count 2.48 M/uL (3.86-4.86)
[2018-05-20] MEDS ORDERED: NA CHLORIDE 0.9% 500 ML IV ONE ×2 (16:14→17:24)
[2018-05-20] MEDS ORDERED: MIDODRINE HCL 5 MG TABLET PO ONE (16:21)
[2018-05-20] MEDS ORDERED: NA CHLORIDE 0.9% 1,000 ML ONE (16:24)
[2018-05-20] MEDS ORDERED: NA CHLORIDE 0.9% 100 ML ONE (16:54)
[2018-05-20] MEDS ORDERED: DESMOPRESSIN 4 MCG/ML AMP SQ ONE (17:07)
[2018-05-20] MEDS ORDERED: FENTANYL CITR 100 MCG/2 ML ONE (17:19)
[2018-05-20] MEDS: HYDROCODONE/APAP 7.5/325 MG TAB PO PRN (17:30)
[2018-05-20] MEDS ORDERED: DESMOPRESSIN IV ONE (18:00)
[2018-05-20] MEDS ORDERED: NA CHLORIDE 0.9% IV ONE (18:00)
[2018-05-20] MEDS ORDERED: VANCOMYCIN/NS 1 gm 1 GM/250 ML BAG IV SCH (18:15)
[2018-05-20] MEDS: PIPER/TAZO/NS 2.25gm 2.25 GM/50 ML BAG IVPB SCH (18:50)
--- NOTE | 2018-05-20 18:52 | P.PN ---
Date of Service: 05/20/18 (HOSP DAY 1) S: CALLED TO SEE THIS PATIENT I WAS FINISHING A PROCEDURE ON ANOTHER FLOOR, DR. VINCENT WAS IN THE ROOM HAVING STARTED Aspiration of the posterior left lower extremity hematoma. O: VITAL SIGNS STABLE PATIENT HAS BEEN AFEBRILE, HEMOGLOBIN DROPPED TO 6.5 OVERNIGHT FOR TRANSFUSION BROUGHT THE HEMOGLOBIN UP TO 8.4. PLATELET COUNT DROPPED FURTHER TO 31, BUT LIKELY BOOSTED WITH 2 UNITS OF BLOOD TRANSFUSION. UPON INSPECTION OF THE MEDIAL ASPECT OF THE LEFT LOWER LEG THE NEEDLE PUNCTURE HAD SPLIT TO OPEN APPROXIMATELY 1/4 INCH. ADDITIONAL PREP WITH CHLORHEXIDINE AND ALCOHOL WAS FOLLOWED BY INSERTION OF AN 18-GAUGE NEEDLE WITH LIMITED ASPIRATION AFTERWARDS. EXTERNAL COMPRESSION NEUROVASCULAR EXAM REMAINS INTACT. DORSAL PEDIS IS 1+, capillary filling is <2 seconds. A: THE PATIENT'S DIALYSIS USUALLY INVOLVES APPROXIMATELY 5000 UNITS OF HEPARIN AND SITTING IN A DEPENDENT POSITION WITH BOTH LOWER EXTREMITIES. THIS MAY HAVE CONTRIBUTED TO THE PATIENT'S RESURGENCE OF HEMORRHAGE. P: ELEVATION AND COMPRESSION ALONG WITH TRANSFER TO ICU FOR CLOSE OBSERVATION IS PLANNED. FURTHER HEMORRHAGE MAY REQUIRE TRANSFER TO A HIGHER LEVEL OF CARE. ADDENDUM: ADDITIONAL EVIDENCE OF HEMORRHAGE AND PATIENT DISCOMFORT OCCURRED AFTER HER TRANSFER TO THE ICU AND BOTH DR. VENTURA AND MYSELF WERE REQUESTED TO RETURN TO THE HOSPITAL. UPON MY ARRIVAL 16 MINUTES AFTER THE CALL, THE BLEEDING HAD BEEN CONTROLLED AND AN ADDITIONAL COMPRESSIVE DRESSING APPLIED. DR. VENTURA WAS QUITE FAMILIAR WITH BLEEDING EPISODES IN RENAL FAILURE PATIENTS AND USING A GLOVED FINGER TO OPEN THE MEDIAL SKIN SPLIT TO EXPRESS LARGER HEMATOMAS BEFORE REAPPLYING THE COMPRESSIVE BANDAGE. DR. VENTURA WAS REASSURED THAT ALL BLEEDING WAS DARK AND VENOUS IN NATURE AND EXPRESSED HIS AVAILABILITY TO RETURN AT [address] VINCENT WAS ORDERING ADDITIONAL BLOOD AND PLATELET TRANSFUSIONS.
[2018-05-20 19:51] LABS: Platelet Estimate DECR
[2018-05-20 19:52] LABS: Anisocytosis 1+; Blood Morphology Comment NOTED (NOT SEEN); Macrocytosis 1+
[2018-05-20] MEDS: VANCOMYCIN 1.75 GM in NA CHLORIDE 0.9% 500 ML IVPB ONE ×2 (21:00→21:57)
[2018-05-20] MEDS: MIDODRINE HCL 5 MG TABLET PO SCH (21:02)
[2018-05-20] MEDS: FAMOTIDINE 20 MG TAB PO SCH (21:02)
[2018-05-20] MEDS ORDERED: NA CHLORIDE 0.9% 250 ML IV SCH (22:00)
[2018-05-20 22:02] LABS: Hematocrit 21.5 % (36.0-45.0)
[2018-05-20 22:06] LABS: Absolute Lymphocytes (CBC) 0.6 K/uL (0.7-4.9); Absolute Monocytes 0.2 K/uL (0.1-1.3); Absolute Neutrophil 1.9 K/uL (1.8-8.0); Basophils % 1.1 % (0-1.3); Eosinophils % 1.6 % (0-4.4); Hematocrit 21.6 % (36.0-45.0); Lymphocytes % 20.7 % (15.3-44.8); MPV 11.8 fL (7.6-11.3); Monocytes % 7.2 % (3.3-12.3); RBC Red Blood Cell Count 2.33 M/uL (3.86-4.86)
[2018-05-20 22:13] LABS: Protime INR 1.59
[2018-05-21] MEDS: PIPER/TAZO/NS 2.25gm 2.25 GM/50 ML BAG IVPB SCH ×3 (00:13→16:44)
[2018-05-21] MEDS: HYDROCODONE/APAP 7.5/325 MG TAB PO PRN ×3 (00:14→21:00)
[2018-05-21 02:38] LABS: MPV 8.1 fL (7.6-11.3)
[2018-05-21 03:20] LABS: Platelet Estimate ND
[2018-05-21] MEDS: TRAMADOL HCL 50 MG TAB PO PRN (05:56)
[2018-05-21 06:16] LABS: Albumin 2.4 g/dL (3.4-5.0); Potassium 3.4 mmol/L (3.5-5.1); Protein, Total 5.3 g/dL (6.4-8.2)
[2018-05-21 06:19] LABS: Bilirubin Total 7.3 mg/dL (0.2-1.0)
[2018-05-21] MEDS: INSULIN -REGULAR HUMAN 50 UNIT/0.5 ML ML SQ SCH ×4 (07:30→21:00)
[2018-05-21] MEDS: SERTRALINE HCL 50 MG TAB PO SCH (08:47)
[2018-05-21] MEDS: BUPROPRION HCL S.R. 150MG TAB PO SCH ×2 (08:48→21:00)
[2018-05-21] MEDS: MIDODRINE HCL 5 MG TABLET PO SCH ×3 (08:48→21:00)
[2018-05-21] MEDS: NEOMYCIN PO SCH (08:57)
[2018-05-21] MEDS: PROPRANOLOL HCL 10 MG TAB PO SCH ×2 (08:58→21:00)
[2018-05-21] MEDS: LACTULOSE 20 GM/30 ML UCUP PO SCH ×3 (08:59→21:01)
[2018-05-21] MEDS ORDERED: VANCOMYCIN 1 GM in NA CHLORIDE 0.9% 500 ML IVPB SCH (09:00)
[2018-05-21] MEDS ORDERED: NA CHLORIDE 0.9% 100 ML ONE (09:22)
[2018-05-21] MEDS ORDERED: EPOETIN ALFA 10,000 UNIT/ML VIAL SQ SCH (10:00)
[2018-05-21] MEDS ORDERED: FENTANYL CITR 100 MCG/2 ML IV PRN (10:34)
--- NOTE | 2018-05-21 10:51 | P.PN ---
Subjective Date of Service: 05/21/18 Primary Care Provider: retirement resident; Nephrology-Dr. Tyler Chief Complaint: left calf hematoma Subjective: Other (Patient stable this time. Patient has received packed red blood cells, FFP and platelets.) Physical Examination - Vital Signs Temperature: 97.1 F Blood Pressure: 103/59 Pulse: 56 Respirations: 12 Pulse Ox (%): 97 - Physical Exam General: Alert, In no apparent distress, Oriented x3, Cooperative HEENT: Atraumatic Neck: Supple Respiratory: Clear to auscultation bilaterally, Normal air movement Cardiovascular: Normal pulses, Regular rate/rhythm Gastrointestinal: Normal bowel sounds, Soft and benign, Non-distended, No masses , No rebound, No guarding Integumentary: Other (Left lower extremity bandaged.) Neurological: Normal speech, Normal strength at 5/5 x4 extr, Normal tone - Studies Laboratory Data (last 24 hrs) 05/20/18 16:00: WBC 2.6 L D, Hgb 8.0 L, Hct 23.3 L, Plt Count 31 L* D 05/20/18 15:28: PT Cancelled, INR Cancelled, APTT Cancelled 05/20/18 15:28: Hgb Cancelled, Hct Cancelled, Plt Count Cancelled 05/20/18 10:39: Sodium 139, Potassium 3.8, BUN 31 H, Creatinine 4.00 H, Glucose 118 H, Magnesium 2.0 05/20/18 10:39: WBC 3.1 L D, Hgb 8.4 L, Hct 24.9 L D, Plt Count 43 L* 05/20/18 10:00: Hgb Cancelled, Hct Cancelled Medications List Reviewed: Yes Assessment & Plan Discharge Plan: Long-Term Plan to discharge in: Greater than 2 days Physician Review Additional Text: Impression: 10 cm Left calf hematoma after an assisted fall status post needle aspiration of blood with subsequent reaccumulation of blood requiring decompression and removal of blood/clots x2 related to assisted fall Acute on chronic anemia with thrombocytopenia requiring blood products due to hematoma complicated with liver cirrhosis with hepatitis-C End-stage renal disease on hemodialysis 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 Calf hematoma had to be decompressed twice yesterday. Surgery was able to stop bleeding. This appeared as a venous bleed. Patient required blood products including blood transfusion, platelet transfusion and FFP. Patient now on IV antibiotic therapy. Wound culture obtained. Continue with recommendations from surgery. Will monitor closely. Continue to monitor CBC. Case discussed at length with nephrology. Will discuss case further with orthopedic and surgery today. Will provide medication for pain. Will check to see if the patient will require further surgical intervention. Transfer was considered yesterday but due to control of bleeding and no need for CV surgery or interventional radiology, transfer was held. Case discussed at length with hospitalist-Dr. Tonio Ramos from other facility. If patient requires transfer he would be happy to accept patient. I will turn the service over to Dr. Maloney tomorrow. I will below the plan of care with her. Acute on chronic anemia with thrombocytopenia requiring blood products due to hematoma complicated with liver cirrhosis with hepatitis-C: Patient has gotten a total of 4 units of packed red blood cells. Patient also has received 2 units of FFP and 2 units of platelets. Will continue monitor CBC closely. Will monitor hematoma closely. Patient may require further blood products. Will monitor closely. Continue with her liver cirrhosis medication- lactulose and xifaxan. Will maintain 3-4 bowel movements per day. Will monitor for hepatic encephalopathy. End-stage renal disease on hemodialysis: Patient received dialysis yesterday. Continue with nephrology recommendation. 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 Will continue with wound care as per half-way instruction Diabetes mellitus type 2, insulin dependent: Continue sliding scale. Will discontinue basal insulin.. Hypertension: Hold blood pressure medication at this time. Will monitor closely. Depression with anxiety: Continue home medication GERD: Continue home medication Obesity, BMI 37: Address lifestyle modification education. Time Spent Managing Pts Care (In Minutes): 55
[2018-05-21] MEDS: FENTANYL CITR 100 MCG/2 ML IV PRN ×2 (11:50→16:46)
[2018-05-21 11:57] LABS: Absolute Lymphocytes (CBC) 0.7 K/uL (0.7-4.9); Absolute Monocytes 0.4 K/uL (0.1-1.3); Absolute Neutrophil 2.2 K/uL (1.8-8.0); Basophils % 0.8 % (0-1.3); Eosinophils % 4.5 % (0-4.4); Hematocrit 24.4 % (36.0-45.0); Lymphocytes % 19.1 % (15.3-44.8); MPV 7.7 fL (7.6-11.3); RBC Red Blood Cell Count 2.68 M/uL (3.86-4.86)
[2018-05-21 12:03] LABS: Protime INR 1.39
[2018-05-21] MEDS: D50W 25 GM/50 ML SYRINGE IV PRN (12:13)
[2018-05-21] MEDS: NEOMYCIN SULFATE 500 MG TAB PO SCH (14:37)
--- NOTE | 2018-05-21 17:44 | P.PN ---
Subjective Date of Service: 05/21/18 Primary Care Provider: [facility] resident; Nephrology-Dr. Tyler Chief Complaint: left calf hematoma Subjective: Improving wound oozing now S/P 2 PRBC , 2FFP and 2 Plt transfusion yesterday Ortho evaluation appreciated HD tomorrow fentanyl or dialuded for pain control Physical Examination - Vital Signs Temperature: 97.1 F Blood Pressure: 98/54 Pulse: 51 Respirations: 12 Pulse Ox (%): 98 - Physical Exam General: Oriented x3, Mild distress, Moderate distress HEENT: Atraumatic Neck: Supple, Without JVD or thyroid abnormality Respiratory: Clear to auscultation bilaterally, Normal air movement Cardiovascular: No edema, Regular rate/rhythm, Normal S1 S2 Musculoskeletal: Other (Lt leg dress, pain ) - Studies Laboratory Data (last 24 hrs) 05/20/18 15:28: PT Cancelled, INR Cancelled, APTT Cancelled 05/20/18 15:28: Hgb Cancelled, Hct Cancelled, Plt Count Cancelled Medications List Reviewed: Yes Assessment And Plan - Current Problems (Diagnosis) (1) Acute blood loss anemia Current Visit: Yes Status: Acute (2) Hematoma Current Visit: Yes Status: Acute (3) ESRD (end stage renal disease) on dialysis Onset Date: 10/25/17 Current Visit: No Status: Chronic - Plan A 52-year-old woman [place] resident with PMHx of ESRD 2/2 hepatorenal on HD TTsat hep C and cirrhosis , hypertension, congestive heart failure, hypothyroidism, , diabetes complicated with neuropathy and nephropathy. Pt was sent from dialysis center for Lt calf swelling and pain pt slipped in the restroom with trauma to the Lt leg, in ER Hb 6.5, plt 43 300 ml aspirated from leg , recived 2 PRBCs no chest pain palpitation, nausea, vomiting or diarrhea Assessment And Plan: End-stage renal disease. from [facility] via perm cath on TTsat HD tomorrow renal dose meds Acute anemia due to Leg hematoma surgery evaluation transfuse to keep hb.7.0 consdier platealate transfusion if cont to have hematoma Lt leg hematoma with compartment evacuated monitor CBC Hypotension chronic will consider Midodrine during HD pt is euvolemic Diabetes as by primary.
--- NOTE | 2018-05-21 19:14 | P.CNS ---
Date of Consult: 05/20/18 PC: I was asked to see this 52-year-old female in regards to some bleeding in her left lower leg peer HPC: Patient apparently sustained a fall. She was found have a large hematoma at her left lower leg. The tensor made aspirate this hematoma. She had a skin splitting this area with drainage of a considerable amount of old hematoma and blood. PMH: Liver failure, renal failure SOC: No allergies O/E awake alert stable HEENT: Not jaundiced Chest: Chest movement equal bilaterally ABD: NAD LOCO: Has an area on the left lower extremity. There are is ecchymosis on the skin surface. There is an open wound approximately 3 and 0.5 cm in size. Blood clot is visible through this and is draining blood. It does not appear her arterial blood old venous pooled blood. IMPRESSION: This patient, 1 liver failure who has a obvious inadequate clotting factors, appears to have sustained a shear injury to her lower leg. She developed a large hematoma in that area. Hematoma stabilized in size. Attempts were made to aspirate the hematoma. The patient had been in dialysis, later was noted to have any increase in size of the hematoma. In addition this thin fragile skin split causing a episode of bleeding/drainage of old hematoma. At the bedside we were able to evacuate the clot, placed a is 4 x 4 inside, and apply some compression. I will leave this in for 24 hr. At that time we will remove it and see what other interventions are required at that time. PLAN: Leave dressing in place for the next 24 hr. I will change it on Tuesday.
--- NOTE | 2018-05-21 19:16 | P.PN ---
Date of Service: 05/21/18 S: Patient looks a lot more bright eyed today interactive. Does not appear in any acute distress. O: A spanning is intact, has some small myoma drainage on the outside. Can wiggle and move her toes. Foot is warm. A: Bleeding appears to be controlled. P: I will change the dressing at the bedside tomorrow and inspect the wound. We will determine further treatment at that time. At the current time she is stable.
[2018-05-21 19:50] LABS: Absolute Lymphocytes (CBC) 0.7 K/uL (0.7-4.9); Absolute Monocytes 0.4 K/uL (0.1-1.3); Absolute Neutrophil 1.8 K/uL (1.8-8.0); Basophils % 0.9 % (0-1.3); Eosinophils % 4.9 % (0-4.4); Hematocrit 26.6 % (36.0-45.0); Lymphocytes % 21.7 % (15.3-44.8); MPV 8.1 fL (7.6-11.3); Monocytes % 12.6 % (3.3-12.3); RBC Red Blood Cell Count 2.88 M/uL (3.86-4.86)
[2018-05-21] MEDS ORDERED: VITAMIN K (ADULT) 10 MG/ML SQ ONE (20:00)
[2018-05-21] MEDS: FAMOTIDINE 20 MG TAB PO SCH (21:00)
--- NOTE | 2018-05-21 21:34 | P.PN ---
Date of Service: 05/21/18 (hospital day 2) S: Patient seen in ICU reclining with left lower extremity elevated with compressive wrap showing hemorrhagic draining through the bandage on to impervious pad. O: VITAL SIGNS STABLE PATIENT HAS BEEN AFEBRILE. Overnight the patient has had two units of fresh frozen plasma and 2 UNITS OF BLOOD TRANSFUSION With labs pending. Pain chart over the last hours is recorded as three, seven, seven, zero , 0/10. Some swelling is noted just above the posterior medial aspect of the left knee in the popliteal space. NEUROVASCULAR EXAM REMAINS INTACT. DORSAL PEDIS IS 1+, capillary filling is <2 seconds. A: The patient will need continued close observation with adjustments for maintaining hemoglobin and platelet count to improve coagulation. Bandage change will be left to Dr. Aguilar follow-up. P: CONTINUED CLOSE OBSERVATION IS PLANNED. SOFT TISSUE WOUND TO BE MANAGED BY GENERAL SURGERY.
--- NOTE | 2018-05-22 00:03 | CON ---
Date of Consultation: 05/21/2018 Reason For Consultation: Left calf hematoma with bleeding. History Of Present Illness: Ms. Mackay is a 52-year-old assisted resident with multiple medical problems including severe liver disease, splenomegaly, hypersplenism, thrombocytopenia, end-stage renal disease on dialysis, who was brought to the emergency room on the with complaints of worsening pain and swelling in her left calf. She has a history of a fall in the assisted approximately 3-4 weeks ago and says she noticed some swelling and pain at that time, which have steadily worsened. She was at dialysis on the , when the pain worsened and she appeared to be lethargic and hence was transferred to the emergency room. She denies any history of fever or chills. She denies bleeding from her mouth, nose, gums, or rectum. She does bruise easily and has a known history of thrombocytopenia. She was seen by Dr. Ashby in the emergency room for what appeared to be a 10 cm hematoma in the calf on the CT scan. He performed an aspiration procedure, aspirating a total of 250 mL of bloody fluid with clot from her calf, following which an Poncho wrap was applied. Yesterday, there was significant bleeding from the left calf again, and she redeveloped a hematoma, which was drained by Dr. Campos. This happened after dialysis, where she received heparin approximately 5000 international units. A clot was evacuated manually, and a compression bandage was placed by Dr. Campos. Ms. Mackay has received a total of 3 units of packed red blood cells with 2 units of FFP and 2 units of platelets in the past 48 hours. She continues to have serous fluid oozing from her calf wound. I was asked to advise regarding this bleeding. Ms. Mackay denies previous muscle or joint bleeding. As noted above, she has had a chronic thrombocytopenia secondary to hepatitis C and hypersplenism from advanced liver disease and splenomegaly. Her platelet count runs between 30, 000 to 60,000 in the past 10 months or so. She is a poor historian due to multiple comorbidities and medications and recurrent admissions for ketotic encephalopathy. She denies any anorexia or recent weight loss. She denies any nausea or vomiting. Did have problems with her fistula in the left arm and was hospitalized recently for management of this fistula. When I saw her this evening, she seemed comfortable. She denies any pain in her left calf at this time, though she has noted continuous oozing. Review of Systems: Otherwise as noted above. Past Medical History: Significant for: 1. Type 2 diabetes. 2. Hypertension. 3. Hyperlipidemia. 4. Cirrhosis of the liver. 5. Hepatitis C. 6. Splenomegaly. 7. Chronic thrombocytopenia. 8. Anxiety and depression. 9. End-stage renal disease, on dialysis. 10. Congestive heart failure. Past Surgical History: Significant for: 1. . 2. Tonsillectomy. 3. Coronary angiogram. 4. AV fistula. Current Medications: As follows: 1. Acetaminophen 500 mg q.4 hours p.r.n. for pain or temperature. 2. Hydrocodone/acetaminophen 7.5/325 one tablet q.6 hours p.r.n. for pain. 3. Abilify 5 mg p.o. daily. 4. Wellbutrin 150 mg p.o. b.i.d. 5. Procrit 6000 units subcu at every dialysis. 6. Pepcid 20 mg p.o. q.h.s. 7. Fentanyl 25 mcg IV q.4 hours p.r.n. for severe pain. 8. Insulin on a sliding scale. 9. Lactulose 20 g p.o. t.i.d., scheduled, on Sundays, Tuesdays, , and Saturdays. 10. Meclizine 25 mg p.o. q.12 hours p.r.n. for nausea, vomiting. 11. Midodrine 5 mg p.o. t.i.d., scheduled. 12. Ondansetron 4 mg IV q.6 hours p.r.n. for nausea, vomiting. 13. Zosyn 2.25 mg IV q.8 hours, scheduled. 14. Propranolol 10 mg p.o. b.i.d. 15. Zoloft 50 mg p.o. daily. 16. Tramadol 50 mg p.o. t.i.d. p.r.n. for pain. 17. Vancomycin 1 g IV after each dialysis. Allergies: SHE IS ALLERGIC TO ADHESIVE, BUT HAS NO KNOWN DRUG ALLERGIES. Social And Family History: She lives at [facility]. Denies any history of alcohol or smoking. Her father from diabetes and cirrhosis of the liver in his 60s. Her mother is alive and well. She has 3 children in good health. Physical Examination: General: Ms. Mackay is a chronically ill-looking lady. General physical examination reveals pallor. There is no cyanosis or clubbing noted. Vital Signs: Reveal that she has been afebrile. Temperature was 97.1 this evening around 5 o'clock, pulse is 51, respirations 12, blood pressure is 98/54 , saturating at 98%. HEENT: Examination reveals no bleeding from the mouth, gums, or petechiae in the palate. Skin: Examination revealed extensive bruising over both arms and had IV stick sites. There was no evidence of bleeding. Neck: There is no palpable lymphadenopathy in the neck. Chest: Reveals bilateral vesicular breath sounds. No rales or rhonchi were heard. Heart: Heart sounds reveal normal S1, S2. No gallops or murmurs. Abdomen: Distended with evidence of cutaneous varices. Spleen is palpable approximately 5 cm below the left subcostal margin in the midclavicular line. Liver is not palpable. Bowel sounds were present. There is evidence of fluid in the abdomen. Neurologic: She is alert and oriented. Memory and recall are impaired. Extremities: Show evidence of edema. The left leg shows extensive bluish discoloration from the knee up to just above the ankle. Dressing is in place, which is soaked with serous blood-tinged fluid. There is evidence of bruising on the right ryan as well as the right knee. Laboratory Data: CBC this morning revealed a white count of 3.5 thousand, hemoglobin was 8.4, platelet count was 45,000. This is following the 3 units of packed cells and the 2 units of platelets. PT, PTT were elevated on admission at 16.8 and 67.3 respectively. Following the FFP, PT remains at 16.4 , PTT has reduced to 39.6. Chemistries reveal normal electrolytes, BUN and creatinine are elevated with an estimated GFR of 12. Procalcitonin was mildly elevated at 0.6. Total bilirubin this morning was 7.3. Her albumin is decreased at 2.4. Assessment And Plan: Ms. Mackay is a 52-year-old with multiple medical morbidities, who presents with a calf hematoma and re-bleeding. Possible etiologies for excessive bleeding and re-bleeding are chronic liver disease leading to multiple factor deficiency, hyperfibrinolysis due to severe liver disease, disseminated intravascular clotting (which would be hard to distinguish from the coagulopathy from chronic liver disease). Another less common possibility would be acquired factor VIII inhibitors. Compounding the picture is her chronic thrombocytopenia with severe liver disease. Hence, we will order a euglobulin lysis time to help differentiate hyperfibrinolysis from disseminated intravascular clotting or thrombotic thrombocytopenic purpura. I have checked a serum fibrinogen. Would suggest transfusion of cryoprecipitate if the fibrinogen level is less than 100 mg/dL. If hyperfibrinolysis is confirmed, and she re-bleeds, I would suggest treatment with EACA. I would also suggest platelet transfusion to maintain a platelet count of 50, 000 or more, given the extensive hematoma and end-stage renal disease. I would also suggest heparin be held at dialysis until the bleeding has resolved. I will treat her with vitamin K today and I would suggest transfusion of FFP to maintain an INR of less than 1.5. Thank you for asking me to see her. Please do not hesitate to call if you have any further questions. SRAVAN/VANIA Voice ID: [id number] Report ID: [id number] JOY
[2018-05-22] MEDS: PIPER/TAZO/NS 2.25gm 2.25 GM/50 ML BAG IVPB SCH ×3 (00:56→17:24)
[2018-05-22 05:52] LABS: Absolute Lymphocytes (CBC) 0.6 K/uL (0.7-4.9); Absolute Monocytes 0.4 K/uL (0.1-1.3); Absolute Neutrophil 1.9 K/uL (1.8-8.0); Basophils % 0.9 % (0-1.3); Eosinophils % 3.6 % (0-4.4); Hematocrit 24.2 % (36.0-45.0); Lymphocytes % 20.6 % (15.3-44.8); MPV 7.8 fL (7.6-11.3); Monocytes % 13.8 % (3.3-12.3); RBC Red Blood Cell Count 2.63 M/uL (3.86-4.86)
[2018-05-22 05:54] LABS: Protime INR 1.39
[2018-05-22 06:04] LABS: Albumin 2.3 g/dL (3.4-5.0); Protein, Total 5.4 g/dL (6.4-8.2)
[2018-05-22 06:06] LABS: Bilirubin Total 7.6 mg/dL (0.2-1.0)
[2018-05-22] MEDS: INSULIN -REGULAR HUMAN 50 UNIT/0.5 ML ML SQ SCH ×4 (07:30→21:00)
[2018-05-22] MEDS: NEOMYCIN SULFATE 500 MG TAB PO SCH (08:20)
[2018-05-22] MEDS: SERTRALINE HCL 50 MG TAB PO SCH (08:20)
[2018-05-22] MEDS: MIDODRINE HCL 5 MG TABLET PO SCH ×3 (08:20→21:29)
[2018-05-22] MEDS: ARIPiprazole 5 MG TAB PO SCH (08:20)
[2018-05-22] MEDS: BUPROPRION HCL S.R. 150MG TAB PO SCH ×2 (08:20→21:29)
[2018-05-22] MEDS: ALBUMIN HUMAN 25% 50 ML IV SCH (09:24)
[2018-05-22] MEDS ORDERED: MIDODRINE HCL 5 MG TABLET PO PRN (11:06)
[2018-05-22] MEDS: FENTANYL CITR 100 MCG/2 ML IV PRN ×2 (11:45→21:18)
[2018-05-22] MEDS: D5W 1,000 ML IV SCH (12:47)
[2018-05-22] MEDS: HYDROCODONE/APAP 7.5/325 MG TAB PO PRN ×2 (12:52→19:35)
--- NOTE | 2018-05-22 13:01 | P.PN ---
Date of Service: 05/22/18 S: PATIENT APPEARS MORE COMFORTABLE TODAY, STATING SHE STILL HAS SOME OCCASIONAL STABBING PAIN IN HER LEFT LOWER LEG. O: Vital signs are stable, wound is clean, has some small amount of blood most likely and liquified hematoma coming from it. A: wound appears to be surgically stable P: Dressing was changed at the bedside today. Some Surgicel cotton was placed into the wound. Surgically she is stable. Will see how wound progresses over the next few days. Skin has some dusky congestion. Not sure if it is vascular compromise will watch to demarcate over the next 24 hr.
[2018-05-22] MEDS ORDERED: NA CHLORIDE 0.9% 250 ML ONE ×2 (13:31→14:06)
--- NOTE | 2018-05-22 14:49 | P.PN ---
Subjective Date of Service: 05/22/18 Primary Care Provider: [facility] resident; Nephrology-Dr. Tyler Chief Complaint: left calf hematoma Pt seen and examined at bedside. Chart reviewed. Case discussed with general surgery, hematology, Orthopedics, and nephrology at this time. Patient getting dressing changes for her hematoma on the left leg at bedside currently. Currently noting bright red blood from the incision site. Pressure dressing applied to the area at this time. Patient complains of having anxiety and pain in the affected area. Review of Systems 10-point ROS is otherwise unremarkable Physical Examination - Vital Signs Temperature: 97.2 F Blood Pressure: 95/50 Pulse: 60 Respirations: 13 Pulse Ox (%): 99 - Physical Exam General: Alert, Moderate distress HEENT: Atraumatic, PERRLA, EOMI, Scleral icterus Neck: Supple, JVD distended Respiratory: Clear to auscultation bilaterally, Normal air movement Cardiovascular: Regular rate/rhythm, Normal S1 S2 Gastrointestinal: Normal bowel sounds, Soft and benign, No tenderness, Distended Musculoskeletal: No tenderness Integumentary: No rashes Neurological: Normal speech, Normal tone, Normal affect Lymphatics: No axilla or inguinal lymphadenopathy - Studies Medications List Reviewed: Yes Assessment And Plan - Current Problems (Diagnosis) (1) Hematoma Onset Date: 05/22/18 Current Visit: Yes Status: Acute Plan: Left calf hematoma measuring 10 cm occurring status post fall -status post decompression and needle aspiration by orthopedic and general surgery -currently patient with pressure dressing to the affected area with increasing serous sanguinous fluid -will continue to monitor CBC closely here in the hospital -patient currently requiring blood products such as blood transfusion platelet transfusion FFP given the extensive liver disease along with thrombocytopenia -per general surgery's recommendation will continue with pressure dressing at this time patient will require surgical intervention in next 24-48 hr if no improvement noted (2) Hemodialysis catheter infection Current Visit: Yes Status: Acute Plan: Hemodialysis catheter on the left arm infected during the last hospitalization and possible this hospitalization as well -wound culture positive for Gram negative rods -previous culture positive for E. coli -catheter removed at [facility] -currently patient with left arm wound -wound care consulted appreciated recommendations at this time -will apply wound VAC to the area -IV antibiotics at this time Qualifiers: Encounter type: subsequent encounter Qualified Code(s): T82.7XXD - Infection and inflammatory reaction due to other cardiac and vascular devices, implants and grafts, subsequent encounter (3) Pancytopenia Onset Date: 11/24/17 Current Visit: No Status: Chronic Plan: Pancytopenia most likely secondary to chronic liver disease versus acute fibrinolysis -Hematology consulted appreciated recommendations at this time -recommends patient to get platelet transfusion of platelets below 50 and bleeding along with FFP and cryo if needed. 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 Diabetes mellitus complication status: without complication Qualified Code(s): E11.9 - Type 2 diabetes mellitus without complications (5) ESRD (end stage renal disease) on dialysis Onset Date: 10/25/17 Current Visit: No Status: Chronic (6) GERD (gastroesophageal reflux disease) Onset Date: 09/27/16 Current Visit: No Status: Chronic Qualifiers: Esophagitis presence: without esophagitis Qualified Code(s): K21.9 - Gastro -esophageal reflux disease without esophagitis (7) HTN (hypertension) Onset Date: 09/27/16 Current Visit: No Status: Chronic Qualifiers: Hypertension type: essential hypertension Qualified Code(s): I10 - Essential (primary) hypertension (8) Hepatitis C Onset Date: 06/07/16 Current Visit: No Status: Chronic Qualifiers: Viral hepatitis chronicity: chronic Hepatic coma status: without hepatic coma Qualified Code(s): B18.2 - Chronic viral hepatitis C (9) Liver cirrhosis Onset Date: 02/16/16 Current Visit: No Status: Chronic Qualifiers: Hepatic cirrhosis type: unspecified hepatic cirrhosis Ascites presence: unspecified Qualified Code(s): K74.60 - Unspecified cirrhosis of liver (10) Congestive heart failure with LV diastolic dysfunction, NYHA class 3 Onset Date: 06/07/16 Current Visit: No Status: Chronic (11) Depression with anxiety Onset Date: 06/07/16 Current Visit: No Status: Chronic Discharge Plan: Home Plan to discharge in: 48 Hours
[2018-05-22 16:36] LABS: Absolute Lymphocytes (CBC) 0.7 K/uL (0.7-4.9); Absolute Monocytes 0.5 K/uL (0.1-1.3); Absolute Neutrophil 1.9 K/uL (1.8-8.0); Basophils % 0.6 % (0-1.3); Eosinophils % 1.7 % (0-4.4); Hematocrit 22.3 % (36.0-45.0); Lymphocytes % 21.2 % (15.3-44.8); MPV 8.1 fL (7.6-11.3); Monocytes % 15.7 % (3.3-12.3); RBC Red Blood Cell Count 2.37 M/uL (3.86-4.86)
[2018-05-22] MEDS ORDERED: NA CHLORIDE 0.9% 500 ML ONE (20:10)
[2018-05-22 20:12] LABS: Urine White Blood Cell Casts OK
[2018-05-22 20:13] LABS: Platelet Estimate DECR
[2018-05-22 20:15] LABS: Anisocytosis 3+; Blood Morphology Comment NOTED (NOT SEEN)
[2018-05-22] MEDS: FAMOTIDINE 20 MG TAB PO SCH (21:29)
[2018-05-22] MEDS: JUVEN PACKET PO SCH (21:32)
[2018-05-22 22:01] LABS: MPV 7.9 fL (7.6-11.3)
[2018-05-22 22:45] LABS: Platelet Estimate ND
--- NOTE | 2018-05-22 23:24 | P.PN ---
Date of Service: 05/22/18 S: Patient still in ICU reclining with left lower extremity elevated with compressive wrap continuing to show hemorrhagic draining through the bandage onto impervious pad. O: VSS, PATIENT AFEBRILE. HGB 7.5, protime and INR unchanged at 16.4 & 1.39. Platlet count has decreased to 27. Pain chart over the last hours is recorded as 7, 0, 0, 0, 0/10. The patient seemed quite reluctant to dorsiflex toes and ankle on the right, but with persistence she can demonstrate good strength in both. Capillary filling is < [address] Woods changed the bandages today. A: The patient needs continued close observation with adjustments for maintaining hemoglobin and platelet count to improve coagulation. Bandage change will be left to Dr. Aguilar follow-up. P: SOFT TISSUE WOUND TO BE MANAGED BY GENERAL SURGERY. ORTHO TO DROP TO AVAILABLE.
[2018-05-23 01:15] LABS: Hematocrit 20.3 % (36.0-45.0)
[2018-05-23] MEDS: PIPER/TAZO/NS 2.25gm 2.25 GM/50 ML BAG IVPB SCH ×2 (01:40→09:14)
[2018-05-23 02:46] LABS: Hematocrit 20.7 % (36.0-45.0)
--- NOTE | 2018-05-23 03:37 | PN ---
Date of Progress Note: 05/22/2018 Chief Complaint: End-stage renal disease, on dialysis. History Of Present Illness: The patient received dialysis today. The patient is a 52-year-old woman , custodial resident, with history of end-stage renal disease secondary to hepatorenal syndrome. She is undergoing dialysis on Tuesday, , and Tuesday. She has liver cirrhosis, hepatitis C, hypertension, congestive heart failure, and hypothyroidism. Diabetes mellitus complicated by neurop athy and nephropathy. The patient received blood transfusion to treat severe anemia. She is evaluat ed by surgical team for left the lower extremity hematoma. She received fresh frozen plasma to contr ol bleeding. The patient has history of intradialytic hypotension and is on midodrine as needed for blood pressure support. Review of Systems: The patient is more alert today. Physical Examination: Lungs: Clear to auscultation bilaterally. Heart: S1 and S2. Abdomen: Soft, benign. Extremities: Dressing in place. Laboratory Data: Hemoglobin 7.5, WBC 3.1, and platelet count is 33,000. Chemistry showed sodium 137 , potassium 4.0, chloride 104, CO2 of 26, BUN 26, and creatinine 3.59. Total bilirubin 7.6, magnesiu m 2.0, calcium 7.8, and albumin 2.3. Impression And Plan: 1.End-stage renal disease. The patient underwent dialysis today, and procedure was well tolerated. Blood pressure was in acceptable control during dialysis. 2.Anemia due to hematoma. Blood transfusion will be ordered as needed. Continue RENETTA for anemia due to chronic kidney disease. 3.Diabetes mellitus. Continue insulin. Monitor blood glucose. 4.Questionable dialysis catheter infection. Check blood cultures. Continue broad-spectrum antibiot ics. Continue wound care. 5.Pancytopenia. The patient may be a candidate for platelet transfusion. 6.End-stage renal disease. Monitor electrolytes. Adjust dialysis parameters. EB/MODL Voice ID: [id number] Report ID: [id number]
[2018-05-23 04:59] LABS: Absolute Lymphocytes (CBC) 0.9 K/uL (0.7-4.9); Absolute Monocytes 0.5 K/uL (0.1-1.3); Absolute Neutrophil 1.9 K/uL (1.8-8.0); Basophils % 0.2 % (0-1.3); Eosinophils % 3.6 % (0-4.4); Hematocrit 21.3 % (36.0-45.0); Lymphocytes % 26.3 % (15.3-44.8); MPV 7.9 fL (7.6-11.3); Monocytes % 14.1 % (3.3-12.3); RBC Red Blood Cell Count 2.31 M/uL (3.86-4.86)
[2018-05-23] MEDS ORDERED: NA CHLORIDE 0.9% 250 ML ONE (05:12)
[2018-05-23 05:29] LABS: Albumin 2.2 g/dL (3.4-5.0); Magnesium 1.9 mg/dL (1.8-2.4); Potassium 3.5 mmol/L (3.5-5.1)
[2018-05-23 05:30] LABS: Bilirubin Total 6.8 mg/dL (0.2-1.0)
[2018-05-23 06:04] LABS: Protime INR 1.53
[2018-05-23] MEDS: D50W 25 GM/50 ML SYRINGE IV PRN ×2 (07:21→17:22)
[2018-05-23] MEDS: INSULIN -REGULAR HUMAN 50 UNIT/0.5 ML ML SQ SCH ×4 (07:27→21:00)
[2018-05-23] MEDS: PROPRANOLOL HCL 10 MG TAB PO SCH ×2 (08:56→21:00)
[2018-05-23] MEDS: JUVEN PACKET PO SCH ×2 (08:56→21:00)
[2018-05-23] MEDS: SERTRALINE HCL 50 MG TAB PO SCH (09:00)
[2018-05-23] MEDS: BUPROPRION HCL S.R. 150MG TAB PO SCH ×2 (09:00→22:50)
[2018-05-23] MEDS: LACTULOSE 20 GM/30 ML UCUP PO SCH ×3 (09:00→21:00)
[2018-05-23] MEDS: MIDODRINE HCL 5 MG TABLET PO SCH ×3 (09:15→22:50)
[2018-05-23] MEDS: D5W 1,000 ML IV SCH (09:16)
[2018-05-23 11:35] LABS: Hematocrit 26.2 % (36.0-45.0)
[2018-05-23] MEDS: HYDROCODONE/APAP 7.5/325 MG TAB PO PRN (11:49)
[2018-05-23] MEDS ORDERED: VITAMIN K (ADULT) 10 MG/ML SQ SCH (13:00)
[2018-05-23] MEDS ORDERED: Meropenem 1,000 MG in NA CHLORIDE 0.9% 100 ML IV SCH ×2 (13:00→17:00)
[2018-05-23] MEDS ORDERED: DESMOPRESSIN 4 MCG/ML AMP IV ONE (13:11)
[2018-05-23] MEDS ORDERED: NA CHLORIDE 0.9% 100 ML ONE ×2 (13:11→14:15)
--- NOTE | 2018-05-23 13:11 | P.PN ---
Date of Service: 05/23/18 S: Patient states her leg is sore, and have a lot of pain. She is able to move her leg without discomfort, it is just the area feel sore. O: Wound is clean, there is a lot of old clot inside there. Minimal drainage out through the opening but still his teen use to show some blood pooling up after a few min of the dressing off. A: The patient is continuing to receive blood products. However she has had persistent oozing from this wound. P: I think the patient needs to go to the operating room for exploration of this wound. She has had conservative therapy, but has not responded. The hematoma was initially seen in the subcutaneous tissue, and I feel be more easy to deal with it using electro cautery directly on oozing vessels the risks of the surgery will be discussed with the patient. The risk of further hemorrhage, need for further surgeries and procedure the fact that this can has already questionable viability in this area made it require debridement and/or grafting in the future was explained. She understands and wants us to proceed.
[2018-05-23] MEDS ORDERED: DESMOPRESSIN 20 MCG in NA CHLORIDE 0.9% 50 ML IV SCH (14:00)
--- NOTE | 2018-05-23 14:14 | P.PN ---
Subjective Date of Service: 05/23/18 Primary Care Provider: custodial resident; Nephrology-Dr. Tyler Chief Complaint: left calf hematoma Pt seen and examined at bedside. Chart reviewed. Case discussed with general surgery, hematology, Orthopedics, and nephrology at this time. Currently same amount of drainage from the hematoma site. Patient is tentatively scheduled for or procedure today with general surgery. Will be receiving 1 unit of FFP, 1 unit of cryo, 1 unit of platelets and 2 PRBCs. Review of Systems 10-point ROS is otherwise unremarkable Physical Examination - Vital Signs Temperature: 97.1 F Blood Pressure: 115/70 Pulse: 53 Respirations: 18 Pulse Ox (%): 100 - Physical Exam General: Alert, Mild distress HEENT: Atraumatic, PERRLA, EOMI, Scleral icterus Neck: Supple, Without JVD or thyroid abnormality Respiratory: Clear to auscultation bilaterally, Normal air movement Cardiovascular: Regular rate/rhythm, Normal S1 S2 Gastrointestinal: Normal bowel sounds, No tenderness Musculoskeletal: Tenderness, Other (Left Leg hematoma on the dorsal aspect extending from the left heel all the way up to the left knee. Currently draining serarious from the wound. ) Integumentary: Other (Jaundiced) Neurological: Normal speech, Normal tone, Normal affect Lymphatics: No axilla or inguinal lymphadenopathy - Studies Medications List Reviewed: Yes Assessment And Plan - Current Problems (Diagnosis) (1) Hematoma Onset Date: 05/22/18 Current Visit: Yes Status: Acute Plan: Left calf hematoma measuring 10 cm occurring status post fall -status post unsucessfull decompression and needle aspiration of the hematoma by orthopedic and general surgery -currently patient with pressure dressing to the affected area with increasing serous sanguinous fluid discharge -H/H consistently trending down. Concern for Blood loss and acute Fibrolysis -patient currently requiring blood products such as blood transfusion, platelet transfusion FFP, cryo and Vit K given the extensive thrombocytopenia and Acute blood loss -per general surgery's recommendation will continue with pressure dressing at this time patient will require surgical intervention in next 24-48 hr (2) Hemodialysis catheter infection Current Visit: Yes Status: Acute Plan: Hemodialysis catheter on the left arm infected during the last hospitalization and possible this hospitalization as well -wound culture ESBL -catheter removed at [facility] -wound care consulted appreciated recommendations at this time -Wound vac applied to the area -IV meropenum 05/08 Qualifiers: Encounter type: subsequent encounter Qualified Code(s): T82.7XXD - Infection and inflammatory reaction due to other cardiac and vascular devices, implants and grafts, subsequent encounter (3) Pancytopenia Onset Date: 11/24/17 Current Visit: No Status: Chronic Plan: Pancytopenia most likely secondary to chronic liver disease versus acute fibrinolysis -Hematology consulted appreciated recommendations at this time -recommends patient to get platelet transfusion of platelets below 50 and bleeding along with FFP and cryo if needed. 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 use Diabetes mellitus complication status: without complication Qualified Code(s): E11.9 - Type 2 diabetes mellitus without complications (5) ESRD (end stage renal disease) on dialysis Onset Date: 10/25/17 Current Visit: No Status: Chronic (6) GERD (gastroesophageal reflux disease) Onset Date: 09/27/16 Current Visit: No Status: Chronic Qualifiers: Esophagitis presence: without esophagitis Qualified Code(s): K21.9 - Gastro -esophageal reflux disease without esophagitis (7) HTN (hypertension) Onset Date: 09/27/16 Current Visit: No Status: Chronic Qualifiers: Hypertension type: essential hypertension Qualified Code(s): I10 - Essential (primary) hypertension (8) Hepatitis C Onset Date: 06/07/16 Current Visit: No Status: Chronic Qualifiers: Viral hepatitis chronicity: chronic Hepatic coma status: without hepatic coma Qualified Code(s): B18.2 - Chronic viral hepatitis C (9) Liver cirrhosis Onset Date: 02/16/16 Current Visit: No Status: Chronic Qualifiers: Hepatic cirrhosis type: unspecified hepatic cirrhosis Ascites presence: unspecified Qualified Code(s): K74.60 - Unspecified cirrhosis of liver (10) Congestive heart failure with LV diastolic dysfunction, NYHA class 3 Onset Date: 06/07/16 Current Visit: No Status: Chronic (11) Depression with anxiety Onset Date: 06/07/16 Current Visit: No Status: Chronic - Plan Pending clinical improvement at this time. Patient continues to have acute bleeding from the left hematoma. General surgery planning for surgical procedure this evening versus in next 24 hr. Patient to continue getting FFP, platelets, cryo, PRBC at this time Discharge Plan: Shelter Plan to discharge in: Greater than 2 days - Code Status/Comfort Care Code Status Assessed: Yes Critical Care: Yes
[2018-05-23] MEDS ORDERED: NA CHLORIDE 0.9% 200 ML ONE (14:15)
[2018-05-23] MEDS ORDERED: NA CHLORIDE 0.9% 300 ML ONE (14:49)
[2018-05-23] MEDS ORDERED: PROPOFOL 200 MG/20 ML VIAL IV ONE (16:01)
[2018-05-23] MEDS ORDERED: LIDOCAINE 2% MPF 5 ML VIAL ONE (16:01)
[2018-05-23] MEDS ORDERED: Phenylephrine HCl 10 MG/ML 1 ML VIAL ONE ×2 (16:02→20:08)
[2018-05-23] MEDS ORDERED: NA CHLORIDE 0.9% 100 ML IV ONE (16:09)
[2018-05-23] MEDS: DEXTROSE 10%-WATER 500 ML IV SCH ×2 (18:17→22:50)
[2018-05-23 19:19] LABS: Protime INR 1.44
[2018-05-23 19:21] LABS: Absolute Lymphocytes (CBC) 0.8 K/uL (0.7-4.9); Absolute Monocytes 0.4 K/uL (0.1-1.3); Basophils % 0.6 % (0-1.3); Eosinophils % 2.8 % (0-4.4); Hematocrit 22.6 % (36.0-45.0); Lymphocytes % 24.1 % (15.3-44.8); MPV 8.4 fL (7.6-11.3); Monocytes % 12.5 % (3.3-12.3); RBC Red Blood Cell Count 2.44 M/uL (3.86-4.86)
[2018-05-23] MEDS ORDERED: FENTANYL CITR 100 MCG/2 ML ONE (19:59)
[2018-05-23] MEDS ORDERED: GLYCOPYRROLATE 0.2 MG/ML SYR ONE ×2 (20:09→20:14)
[2018-05-23] MEDS ORDERED: DEXAMETHASONE 10 MG/ML VIAL ONE (20:25)
[2018-05-23] MEDS ORDERED: EPHEDRINE SULF 50 MG/ML VIAL ONE (20:25)
[2018-05-23] MEDS ORDERED: LIDOCAINE 2% W/EPI 1:200,000 MPF 20 ML VIAL IM ONE (20:28)
[2018-05-23] MEDS ORDERED: BUPIVACA 0.25%/EPI 0.0005% MDV 50 ML VIAL ONE (20:28)
[2018-05-23] MEDS ORDERED: ONDANSETRON 4 MG/2 ML VIAL ONE (20:28)
--- NOTE | 2018-05-23 21:12 | P.OP ---
Preoperative diagnosis: Hematoma and open wound on left lower leg Postoperative diagnosis: The same Primary procedure: Exploration and debridement of hematoma of the left lower leg Anesthesia: General Estimated blood loss: Less than 50 cc Specimen: 9 sent Operative Technique: The patient brought to the operating room placed supine on the table. After the induction of adequate general anesthesia, the left lower leg was prepped with a Betadine solution and draped in usual aseptic manner this patient has AE wound over the medial aspect of the left lower calf. In this area there is a large hematoma extending from a hand's breath below the tibial tuberosity down towards do lower ankle sparing that area by about 2 hence breath. The skin has split and has actually demarcated over this hematoma. It appears to be nonviable was certain areas per the wound opening was extended up to the top of this course will viable skin. This flap was now retracted and the lattice exposure of the posterior thigh and subcutaneous tissue. The hematoma was removed off of this. Small areas of bleeding were noted. We inspected it to ensure there were no actual veins or arterial so balls that were actively bleeding. Electro cautery was used to try and control this bleeding. We were left with small microscopic capillary type oozing. A 4x4s soaked in 1% lidocaine with epinephrine was now placed over the whole area of the exposed subcutaneous tissue. This was allowed to rest for approximately 8 min. It was gently removed. Once again the area was gone over with electro cautery. No active bleeding sites were seen however she does have a mild ooze from the overall exposed tissue. At this point Surgicel cotton was now placed over the subcutaneous tissue. This was stuck down some adhered to this area. It was inspected over the course of the next 8 min. Once again no single spot was noted to be actively bleeding however there was just some mild through this. At this point the skin flap was brought back over the Surgicel cotton. 2 ruddy were used to hold this flap in place. A Mason-Garcia drain had been placed at the inferior margin of the skin were closed much like against the spine of the buttock. The area was now covered with an occlusive had facile in gauze dressing. Adaptic was placed over this to create for an airtight seal. A Mason-Garcia drain was now connected to suction. Adaptic was placed over this after having said scrub sponges to protect the area and also help maintain overall gentle compression. This was then connected to the bulb of the syringe. At the end of the procedure the patient was in a stable condition when sent to the recovery room. She will still need to have her medical bleeding corrected. She will also most likely need a trip back to the OR for removal of the Surgicel cotton hand possible further debridement of this compromise skin that was flapped back over the wound. At the end of the procedure she was stable when sent to the recovery room. Needle sponge instrument count were correct. 1 Mason-Garcia drain was in position. Complications: None Drain(s): BAM drain Transferred to: Recovery Room Condition: Good
[2018-05-23] MEDS ORDERED: Ringers Lactate 1,000 ML IV ONE (22:07)
[2018-05-23] MEDS: FAMOTIDINE 20 MG TAB PO SCH (22:50)
[2018-05-23] MEDS: FENTANYL CITR 100 MCG/2 ML IV PRN (23:00)
[2018-05-24] MEDS: HYDROCODONE/APAP 7.5/325 MG TAB PO PRN ×4 (01:00→21:32)
--- NOTE | 2018-05-24 02:11 | PN ---
Date of Progress Note: 05/23/2018 Subjective: The patient was admitted with infected leg and hematoma, still oozing, growing ESBL. Physical Examination: Vital Signs: When I saw the patient, blood pressure of 111/59 and pulse of 65. Chest: Clear to auscultation. Heart: S1, S2. Regular. Systolic murmur. Abdomen: Soft, nontender. Extremities: +1 edema. Laboratory Data: WBC 3.3, H and H 7.6/22.6, and platelets 37. Sodium 137, potassium 3.5, bicarb 28, BUN 19, and creatinine 2.9. Medications: Medication has been reviewed. Assessment And Plan: 1.End-stage renal disease, slightly on the wet side. We will continue the patient on dialysis , Tuesday, and Tuesday. 2.Secondary hyperparathyroidism, stable. Continue the binder. 3.Anemia secondary to wound bleed and secondary to chronic kidney disease. P.r.n. transfusion. Fol low up with Hematology. 4.We will give DDAVP given that the patient is going to undergo debridement today. 5.Pancytopenia secondary to cirrhosis. We will follow up with Hematology. 6.Wound infection, hematoma. Plan for debridement today. We will do DDAVP before the surgery. The patient is going to receive cryo-platelet and blood transfusion today. We will follow up. CHARLES Voice ID: [id number] Report ID: [id number]
--- NOTE | 2018-05-24 02:20 | PN ---
Date of Progress Note: 05/23/2018 Subjective: Ms. Mackay was seen earlier today in the ICU. She continues to have pain in her left calf along with steady oozing and bleeding. Objective: Vital Signs: She has been afebrile. Temperature was 97.7 Fahrenheit at noon today, puls e 60 per minute, respirations 14 per minute, blood pressure 128/75, saturating at 99% on room air. General: Reveals pallor. The extensive bruising on her forearms persist. Chest: Clear to auscultation. Cardiac: Heart sounds reveal normal S1, S2. No gallops. Abdomen: Unchanged. Neurologic: Unchanged. Extremities: Show edema. The left calf is wrapped with dressing that is soaked through. Distal pul ses are present. Laboratory Data: CBC at 4 a.m. revealed a white count of 3.4, hemoglobin 7.3, hematocrit 21.3, plate let count was 34,000. She received 1 unit of packed red blood cells, and post transfusion, hemoglobi n was 8.9 g/dL. PT was 18.1 seconds with an INR of 1.5, PTT was 42.5, fibrinogen was 115 mg/dL. Assessment And Plan: 1.Calf hematoma with hemorrhage. She continues to have steady bleeding from her calf in spite of tr ansfusion support with FFP, packed red blood cells, and platelets. Once again, hyperfibrinolysis is suspected, and I agree with plans to take her to the OR with the intention of evacuating the clot. W e will give her 5 units of cryoprecipitate now in anticipation of the upcoming surgery. Would sugges t: a.Continue platelet transfusion support to maintain a platelet count of 50,000 or higher. b.Transfuse 5 units of cryoprecipitate if serum fibrinogen is less than 100 mg/dL. c.Transfuse packed red blood cells to keep her hemoglobin at 8 g/dL or higher given her multiple com orbidities and continued bleeding. d.Suggest 2 units of FFP if INR is more than 1.5. She has already received a total of 10 mg of abdoulaye min K (2 doses of 5 mg each over the past 72 hours). There is no need for further vitamin K at this time. 2.Thrombocytopenia. This is chronic and secondary to hypersplenism from severe liver disease, cirrh osis, portal hypertension, and massive splenomegaly. The patient appears to be in denial about the severity of her liver disease. In my opinion, her prog nosis is guarded given the multiple comorbidities, advanced liver disease, and end-stage renal diseas e. AP/MODL Voice ID: [id number] Report ID: [id number]
[2018-05-24 05:07] LABS: Hematocrit 22.2 % (36.0-45.0); MPV 8.7 fL (7.6-11.3)
[2018-05-24 05:12] LABS: Protime INR 1.52
[2018-05-24] MEDS: FENTANYL CITR 100 MCG/2 ML IV PRN ×5 (05:39→23:00)
[2018-05-24] MEDS: INSULIN -REGULAR HUMAN 50 UNIT/0.5 ML ML SQ SCH ×4 (07:30→21:00)
[2018-05-24] MEDS: MIDODRINE HCL 5 MG TABLET PO SCH ×3 (08:51→21:32)
[2018-05-24] MEDS: BUPROPRION HCL S.R. 150MG TAB PO SCH ×2 (08:51→21:32)
[2018-05-24] MEDS: SERTRALINE HCL 50 MG TAB PO SCH (08:52)
[2018-05-24] MEDS: JUVEN PACKET PO SCH ×2 (09:26→21:30)
[2018-05-24 11:21] LABS: Albumin 2.2 g/dL (3.4-5.0); Phosphorus 4.4 mg/dL (2.5-4.9); Potassium 4.1 mmol/L (3.5-5.1)
[2018-05-24] MEDS ORDERED: NA CHLORIDE 0.9% 250 ML ONE (11:24)
[2018-05-24] MEDS: EPOETIN ALFA 10,000 UNIT/ML VIAL SQ SCH (12:10)
[2018-05-24] MEDS: DEXTROSE 10%-WATER 500 ML IV SCH (13:45)
--- NOTE | 2018-05-24 14:08 | P.PN ---
Date of Service: 05/24/18 S: Patient appears comfortable in the bed. Currently on hemodialysis. Vital signs are stable. O: Surgical dressing is intact, patient can bend her ankle move her toes. 30 cc out last night, minimal in BAM bulb today. A: Patient's medical coagulopathy being addressed. Will take patient's dressing down on Tuesday and re-evaluate the wound at that time. The meantime will leave dressing in place.
--- NOTE | 2018-05-24 15:07 | P.PN ---
Subjective Date of Service: 05/24/18 Primary Care Provider: jail resident; Nephrology-Dr. Tyler Chief Complaint: left calf hematoma Pt seen and examined at bedside. Chart reviewed. Case discussed with general surgery, hematology, Orthopedics, and nephrology at this time. Patient is status post hematoma evacuation with general surgery POD#1. Doing well overall. This morning her hemoglobin is 7.6. No complaints to offer. States the pain is much better in her left leg than before. Review of Systems 10-point ROS is otherwise unremarkable Physical Examination - Vital Signs Temperature: 97.3 F Blood Pressure: 106/61 Pulse: 72 Respirations: 17 Pulse Ox (%): 99 - Physical Exam General: Alert, Mild distress HEENT: Atraumatic, PERRLA, EOMI, Scleral icterus Neck: Supple, JVD not distended Respiratory: Normal air movement, Crackles/rales Cardiovascular: Regular rate/rhythm, Normal S1 S2 Gastrointestinal: Normal bowel sounds, No tenderness Musculoskeletal: No tenderness Integumentary: Other (Large hematoma extending from the knee to the posterior ankle. Currently draining serosanguineous fluid.) Neurological: Normal speech, Normal tone, Normal affect Lymphatics: No axilla or inguinal lymphadenopathy - Studies Medications List Reviewed: Yes Assessment And Plan - Current Problems (Diagnosis) (1) Hematoma Onset Date: 05/22/18 Current Visit: Yes Status: Acute Plan: Left calf hematoma measuring 10 cm occurring status post fall -Now S.P Evacuation of the Hematoma by General surgery POD # 1 -currently patient with pressure dressing to the affected area and BAM drain in place -H/H today is 7.6. -patient currently requiring blood products such as blood transfusion, platelet transfusion FFP, cryo and Vit K given the extensive thrombocytopenia and Acute blood loss (2) Hemodialysis catheter infection Current Visit: Yes Status: Acute Plan: Hemodialysis catheter on the left arm infected during the last hospitalization and possible this hospitalization as well -wound culture ESBL -catheter removed at [facility] -wound care consulted appreciated recommendations at this time -Wound vac applied to the area -IV meropenum 06/08 Qualifiers: Encounter type: subsequent encounter Qualified Code(s): T82.7XXD - Infection and inflammatory reaction due to other cardiac and vascular devices, implants and grafts, subsequent encounter (3) Pancytopenia Onset Date: 11/24/17 Current Visit: No Status: Chronic Plan: Pancytopenia most likely secondary to chronic liver disease versus acute fibrinolysis -Hematology consulted appreciated recommendations at this time -recommends patient to get platelet transfusion of platelets below 50 and bleeding along with FFP and cryo if needed. 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 2 Diabetes mellitus prison insulin use: without prison use Diabetes mellitus complication status: without complication Qualified Code(s): E11.9 - Type 2 diabetes mellitus without complications (5) ESRD (end stage renal disease) on dialysis Onset Date: 10/25/17 Current Visit: No Status: Chronic (6) GERD (gastroesophageal reflux disease) Onset Date: 09/27/16 Current Visit: No Status: Chronic Qualifiers: Esophagitis presence: without esophagitis Qualified Code(s): K21.9 - Gastro -esophageal reflux disease without esophagitis (7) HTN (hypertension) Onset Date: 09/27/16 Current Visit: No Status: Chronic Qualifiers: Hypertension type: essential hypertension Qualified Code(s): I10 - Essential (primary) hypertension (8) Hepatitis C Onset Date: 06/07/16 Current Visit: No Status: Chronic Qualifiers: Viral hepatitis chronicity: chronic Hepatic coma status: without hepatic coma Qualified Code(s): B18.2 - Chronic viral hepatitis C (9) Liver cirrhosis Onset Date: 02/16/16 Current Visit: No Status: Chronic Qualifiers: Hepatic cirrhosis type: unspecified hepatic cirrhosis Ascites presence: unspecified Qualified Code(s): K74.60 - Unspecified cirrhosis of liver (10) Congestive heart failure with LV diastolic dysfunction, NYHA class 3 Onset Date: 06/07/16 Current Visit: No Status: Chronic (11) Depression with anxiety Onset Date: 06/07/16 Current Visit: No Status: Chronic - Plan Pending clinical improvement at this time. Now status post hematoma evacuation. Currently with BAM drain in place. Doing well over all. Patient to continue getting FFP, platelets, cryo, PRBC at this time Discharge Plan: Other Plan to discharge in: 72 Hours - Code Status/Comfort Care Code Status Assessed: Yes Critical Care: No
--- NOTE | 2018-05-24 16:47 | PN ---
Date of Progress Note: 05/24/2018 Subjective: The patient was admitted with wound infection status post debridement yesterday. The pa tamiko required blood transfusion, so far the patient had 5 units of RBC, 4 of FFP, 3 of platelet, and 5 of cryo. Yesterday, she received also DDAVP. The patient is scheduled for dialysis today. Objective: Vital Signs: Blood pressure 115/61, pulse of 66. Chest: Faint crackles bilateral base. Heart: S1, S2. Regular. Abdomen: Soft. Ascites. Extremities: Plus edema. Laboratory Data: WBC 2, H and H 7.6/22.2, platelet down to 30. Chemistry still pending. Current Medications: The patient on its include: 1.Meropenem. 2.Midodrine. 3.Epogen. 4.Pepcid. 5.Meclizine. 6.Zofran. 7.Hydrocodone. Assessment And Plan: 1.End-stage renal disease. We will continue the patient on dialysis. We will challenge the patient today. 2.Hypokalemia. The patient is going to be dialyzed on high potassium bath. 3.Hypertension/hypotension. The patient to use midodrine pre-dialysis. I am going to go ahead and discontinue Inderal. 4.Anemia. Secondary to blood loss plus chronic kidney disease. I am going to go ahead and increase Epogen. 5.Wound infection growing extended-spectrum beta-lactamase. Continue meropenem. JAYLA/VANIA Voice ID: [id number] Report ID: [id number]
--- NOTE | 2018-05-24 16:53 | CON ---
History Of Present Illness: This is a 52-year-old female with significant history of end-stage renal disease, coming in with hematoma to the left leg which has been operated. The patient also has sign ificant history of diabetes mellitus, hypertension, liver cirrhosis, thrombocytopenia, chronic anemia , coming in with left calf pain, left arm wound culture showed E. coli. Blood cultures negative. E. coli with extended-spectrum beta-lactamase and the patient is being treated currently with meropenem . Past Medical History: End-stage renal disease, diabetes mellitus, hypertension, hypothyroidism, GERD , recurrent urinary tract infection, chronic back pain, anxiety, depression, tonsillectomy, , cardiac cath. Social History: intermediate resident, nonsmoker, nondrinker. Family History: Noncontributory. Medications: Meropenem. See MARs for other medication. Allergies: NO KNOWN DRUG ALLERGIES. Review of Systems: A 10-point review was performed. Physical Examination: General: This is a 52-year-old female, lying in bed, not in any acute cardiopulmonary distress. Vital Signs: Temperature is 98, pulse 66, respiration 18, blood pressure 151/61. HEENT: Unremarkable. Neck: Supple. Lungs: Basal crackles. Heart: S1, S2. Regular. Abdomen: Soft, nontender. Bowel sounds present. Extremities: Left arm wound noted. Left leg under surgical dressing. Assessment And Plan: A 52-year-old female with extended spectrum beta-lactamases infection secondary to Escherichia coli from left arm wound, hematoma to the left leg, pancytopenia, diabetes mellitus, end-stage renal disease. Continue antibiotic and supportive care. We will follow the patient as donavon morales. Thank you Dr. Maloney, for consult. DARBY/VANIA Voice ID: [id number] Report ID: [id number]
[2018-05-24] MEDS ORDERED: NA CHLORIDE 0.9% 500 ML ONE (17:06)
[2018-05-24] MEDS: Meropenem 1,000 MG in NA CHLORIDE 0.9% 100 ML IV SCH (19:28)
[2018-05-24 19:48] LABS: MPV 8.6 fL (7.6-11.3)
[2018-05-24 20:45] LABS: Platelet Estimate DECR
[2018-05-24 20:59] LABS: Absolute Lymphocytes (CBC) 0.4 K/uL (0.7-4.9); Absolute Neutrophil 3.6 K/uL (1.8-8.0)
[2018-05-24 21:05] LABS: Absolute Monocytes 0.4 K/uL (0.1-1.3); Basophils % 0.7 % (0-1.3); Hematocrit 22.3 % (36.0-45.0); Lymphocytes % 8.4 % (15.3-44.8); MPV 8.9 fL (7.6-11.3); RBC Red Blood Cell Count 2.44 M/uL (3.86-4.86)
[2018-05-24] MEDS: FAMOTIDINE 20 MG TAB PO SCH (21:32)
[2018-05-24 21:41] LABS: Albumin 2.5 g/dL (3.4-5.0); Potassium 3.9 mmol/L (3.5-5.1); Protein, Total 5.8 g/dL (6.4-8.2)
[2018-05-24 22:09] LABS: Bilirubin Total 8.1 mg/dL (0.2-1.0)
[2018-05-24] MEDS ORDERED: FUROSEMIDE 40 MG/4 ML VIAL IV ONE (23:00)
[2018-05-25 00:43] LABS: MPV 8.4 fL (7.6-11.3)
[2018-05-25 00:48] LABS: Protime INR 1.46
[2018-05-25 00:53] LABS: Platelet Estimate DECR
[2018-05-25] MEDS: INSULIN -REGULAR HUMAN 50 UNIT/0.5 ML ML SQ SCH ×4 (07:30→21:00)
[2018-05-25] MEDS: LACTULOSE 20 GM/30 ML UCUP PO SCH ×3 (08:24→20:59)
[2018-05-25] MEDS: HYDROCODONE/APAP 7.5/325 MG TAB PO PRN ×2 (08:24→16:13)
[2018-05-25] MEDS: SERTRALINE HCL 50 MG TAB PO SCH (08:24)
[2018-05-25] MEDS: MIDODRINE HCL 5 MG TABLET PO SCH ×3 (08:24→21:00)
[2018-05-25] MEDS: BUPROPRION HCL S.R. 150MG TAB PO SCH ×2 (08:25→21:00)
[2018-05-25] MEDS: JUVEN PACKET PO SCH ×2 (08:25→20:59)
[2018-05-25 08:32] LABS: Absolute Lymphocytes (CBC) 0.5 K/uL (0.7-4.9); Absolute Monocytes 0.4 K/uL (0.1-1.3); Absolute Neutrophil 3.8 K/uL (1.8-8.0); Basophils % 0.1 % (0-1.3); Hematocrit 22.8 % (36.0-45.0); Lymphocytes % 9.8 % (15.3-44.8); MPV 8.8 fL (7.6-11.3); Monocytes % 8.4 % (3.3-12.3); RBC Red Blood Cell Count 2.47 M/uL (3.86-4.86)
[2018-05-25 08:36] LABS: Protime INR 1.53
--- NOTE | 2018-05-25 09:10 | P.PN ---
Subjective Date of Service: 05/24/18 Patient still having significant bleeding although according to nursing staff it is improved. Patient was given platelets and FFP. Patient has also been given blood transfusion. Patient is feeling better overall. Continue monitoring labs and repeat CBC as well as coagulation profiles. Review of Systems 10-point ROS is otherwise unremarkable Physical Examination - Vital Signs Temperature: 97.1 F Blood Pressure: 124/69 Pulse: 65 Respirations: 13 Pulse Ox (%): 99 - Physical Exam General: Alert, In no apparent distress, Oriented x3 Respiratory: Clear to auscultation bilaterally, Normal air movement Cardiovascular: Regular rate/rhythm, Normal S1 S2, Systolic murmur Gastrointestinal: Normal bowel sounds, Soft and benign, Non-distended, No tenderness Musculoskeletal: No clubbing, No swelling Integumentary: No rashes Neurological: Normal speech, Normal strength at 5/5 x4 extr, Normal tone, Sensation intact, Cranial nerves 3-12 intact - Studies Medications List Reviewed: Yes Assessment & Plan - Problems (Diagnosis) (1) Hematoma Onset Date: 05/22/18 Current Visit: Yes Status: Acute (2) Coagulopathy Current Visit: Yes Status: Acute (3) Acute blood loss anemia Onset Date: 05/22/18 Current Visit: Yes Status: Acute (4) ESRD (end stage renal disease) on dialysis Onset Date: 10/25/17 Current Visit: No Status: Chronic (5) Hepatitis C Onset Date: 06/07/16 Current Visit: No Status: Chronic Qualifiers: Viral hepatitis chronicity: chronic Hepatic coma status: without hepatic coma Qualified Code(s): B18.2 - Chronic viral hepatitis C (6) Liver cirrhosis Onset Date: 02/16/16 Current Visit: No Status: Chronic Qualifiers: Hepatic cirrhosis type: unspecified hepatic cirrhosis Ascites presence: unspecified Qualified Code(s): K74.60 - Unspecified cirrhosis of liver (7) Thrombocytopenia Onset Date: 06/07/16 Current Visit: No Status: Chronic - Plan Plan: 1. transfuse additional unit of platelets 2. Transfuse 2 units of FFP. 3. monitor H&H closely; transfuse additional units as needed and check H&H every 6 hr 4. Hemodialysis per nephrology 5. monitor labs closely 6. GI and DVT prophylaxis Discharge Plan: Home Plan to discharge in: Greater than 2 days - Advance Directives Does patient have a Living Will: No Does patient have a Durable POA for Healthcare: No - Code Status/Comfort Care Code Status: Full Code Critical Care: Yes Time Spent Managing PTS Care (In Minutes): 40
[2018-05-25 09:23] LABS: Anisocytosis 2+; Blood Morphology Comment NOTED (NOT SEEN); Ovalocytes 1+; Platelet Estimate DECR; Polychromasia 1+; Urine White Blood Cell Casts OK
[2018-05-25 09:24] LABS: Burr Cells 1+
[2018-05-25 09:33] LABS: Potassium 3.9 mmol/L (3.5-5.1)
[2018-05-25] MEDS ORDERED: NA CHLORIDE 0.9% 250 ML IV SCH (12:00)
--- NOTE | 2018-05-25 13:31 | P.PN ---
Subjective Date of Service: 05/25/18 Primary Care Provider: senior living resident; Nephrology-Dr. Tyler Chief Complaint: left calf hematoma wound oHb dropping plan for PRBC and FFp and cryo transfusion today V stable Cont merrem rt arm swelling, will need central line for Iv meds and blood product HD tomorrow Physical Examination - Vital Signs Temperature: 97.1 F Blood Pressure: 146/78 Pulse: 65 Respirations: 11 Pulse Ox (%): 99 - Physical Exam General: Alert, Mild distress HEENT: Atraumatic Neck: Supple, Without JVD or thyroid abnormality Respiratory: Clear to auscultation bilaterally, Normal air movement Cardiovascular: Regular rate/rhythm, Normal S1 S2 Gastrointestinal: Normal bowel sounds, Soft and benign - Studies Medications List Reviewed: Yes Assessment And Plan - Current Problems (Diagnosis) (1) Acute blood loss anemia Onset Date: 05/22/18 Current Visit: Yes Status: Acute (2) Hematoma Onset Date: 05/22/18 Current Visit: Yes Status: Acute (3) ESRD (end stage renal disease) on dialysis Onset Date: 10/25/17 Current Visit: No Status: Chronic - Plan A 52-year-old woman [place] resident with PMHx of ESRD 2/2 hepatorenal on HD TTsat hep C and cirrhosis , hypertension, congestive heart failure, hypothyroidism, , diabetes complicated with neuropathy and nephropathy. failed Lt UE AVF Pt was sent from dialysis center for Lt calf swelling and pain pt slipped in the restroom with trauma to the Lt leg, in ER Hb 6.5, plt 43 300 ml aspirated from leg , recived 2 PRBCs no chest pain palpitation, nausea, vomiting or diarrhea Assessment And Plan: End-stage renal disease. from [facility] via perm cath on TTsat HD tomorrow renal dose meds Acute anemia due to Leg hematoma surgery evaluation transfuse to keep hb.7.0 Lt leg hematoma with compartment evacuated monitor CBC Diabetes as by primary. lt arm wound cont merrem
--- NOTE | 2018-05-25 16:18 | P.PN ---
Subjective Date of Service: 05/25/18 Primary Care Provider: [facility] resident; Nephrology-Dr. Tyler Chief Complaint: left calf hematoma Pt seen and examined at bedside. Chart reviewed. Case discussed with general surgery, hematology, Orthopedics, and nephrology at this time. Patient is status post hematoma evacuation with general surgery POD#2. Doing well overall. This morning her hemoglobin is 7.7. No complaints to offer. States the pain is much better in her left leg than before. Bleeding has also slowed down and her affected leg. Patient had 90 cc of serosanguineous fluid in the BAM drain yesterday and overnight had about 30 cc. Review of Systems 10-point ROS is otherwise unremarkable Physical Examination - Vital Signs Temperature: 97.1 F Blood Pressure: 131/76 Pulse: 66 Respirations: 11 Pulse Ox (%): 99 - Physical Exam General: Alert, Mild distress HEENT: Atraumatic, PERRLA, EOMI Neck: Supple, JVD not distended Respiratory: Clear to auscultation bilaterally, Normal air movement Cardiovascular: Regular rate/rhythm, Normal S1 S2 Gastrointestinal: Normal bowel sounds, No tenderness Musculoskeletal: No tenderness Integumentary: Skin breakdown, Tenderness/swelling, Erythema, Other Neurological: Normal speech, Normal tone, Normal affect Lymphatics: No axilla or inguinal lymphadenopathy - Studies Microbiology Data (last 24 hrs): 05/20/18 16:00 Blood - Blood Aerobic Blood Culture - Final No growth in 5 days. 05/20/18 16:00 Blood - Blood Anaerobic Blood Culture - Final No growth in 5 days. Medications List Reviewed: Yes Assessment And Plan - Current Problems (Diagnosis) (1) Hematoma Onset Date: 05/22/18 Current Visit: Yes Status: Acute Plan: Left calf hematoma measuring 10 cm occurring status post fall -Now S.P Evacuation of the Hematoma by General surgery POD # 2 -currently patient with pressure dressing to the affected area and BAM drain in place -H/H today is 7.7. Platelets are 44. INR is 1.53. -patient currently requiring blood products such as blood transfusion, platelet transfusion FFP, cryo and Vit K given the extensive thrombocytopenia and Acute blood loss -goal hemoglobin is to be above 8, platelets to be above 50 and INR to be below 1.5 (2) Hemodialysis catheter infection Current Visit: Yes Status: Acute Plan: Hemodialysis catheter on the left arm infected during the last hospitalization and possible this hospitalization as well -wound culture ESBL -catheter removed at [facility] -wound care consulted appreciated recommendations at this time -Wound vac applied to the area -IV meropenum 07/06 Qualifiers: Encounter type: subsequent encounter Qualified Code(s): T82.7XXD - Infection and inflammatory reaction due to other cardiac and vascular devices, implants and grafts, subsequent encounter (3) Pancytopenia Onset Date: 11/24/17 Current Visit: No Status: Chronic Plan: Pancytopenia most likely secondary to chronic liver disease versus acute fibrinolysis -Hematology consulted appreciated recommendations at this time -recommends patient to get platelet transfusion of platelets below 50 and bleeding along with FFP and cryo if needed. 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 2 Diabetes mellitus halfway insulin use: without termite helper use Diabetes mellitus complication status: without complication Qualified Code(s): E11.9 - Type 2 diabetes mellitus without complications (5) ESRD (end stage renal disease) on dialysis Onset Date: 10/25/17 Current Visit: No Status: Chronic (6) GERD (gastroesophageal reflux disease) Onset Date: 09/27/16 Current Visit: No Status: Chronic Qualifiers: Esophagitis presence: without esophagitis Qualified Code(s): K21.9 - Gastro -esophageal reflux disease without esophagitis (7) HTN (hypertension) Onset Date: 09/27/16 Current Visit: No Status: Chronic Qualifiers: Hypertension type: essential hypertension Qualified Code(s): I10 - Essential (primary) hypertension (8) Hepatitis C Onset Date: 06/07/16 Current Visit: No Status: Chronic Qualifiers: Viral hepatitis chronicity: chronic Hepatic coma status: without hepatic coma Qualified Code(s): B18.2 - Chronic viral hepatitis C (9) Liver cirrhosis Onset Date: 02/16/16 Current Visit: No Status: Chronic Qualifiers: Hepatic cirrhosis type: unspecified hepatic cirrhosis Ascites presence: unspecified Qualified Code(s): K74.60 - Unspecified cirrhosis of liver (10) Congestive heart failure with LV diastolic dysfunction, NYHA class 3 Onset Date: 06/07/16 Current Visit: No Status: Chronic (11) Depression with anxiety Onset Date: 06/07/16 Current Visit: No Status: Chronic - Plan Pending clinical improvement at this time. Now status post hematoma evacuation. Currently with BAM drain in place. Doing well over all. Patient to continue getting FFP, platelets, cryo, PRBC at this time Discharge Plan: Other Plan to discharge in: 72 Hours - Code Status/Comfort Care Code Status Assessed: Yes Critical Care: No
[2018-05-25] MEDS: Meropenem 1,000 MG in NA CHLORIDE 0.9% 100 ML IV SCH (17:00)
[2018-05-25 19:31] LABS: Absolute Lymphocytes (CBC) 0.6 K/uL (0.7-4.9); Absolute Monocytes 0.4 K/uL (0.1-1.3); Absolute Neutrophil 4.2 K/uL (1.8-8.0); Basophils % 0.3 % (0-1.3); Hematocrit 23.2 % (36.0-45.0); Lymphocytes % 11.2 % (15.3-44.8); MPV 8.4 fL (7.6-11.3); Monocytes % 8.4 % (3.3-12.3); RBC Red Blood Cell Count 2.52 M/uL (3.86-4.86)
[2018-05-25] MEDS: FAMOTIDINE 20 MG TAB PO SCH (21:00)
[2018-05-26 05:28] LABS: Absolute Lymphocytes (CBC) 0.5 K/uL (0.7-4.9); Absolute Monocytes 0.4 K/uL (0.1-1.3); Absolute Neutrophil 3.9 K/uL (1.8-8.0); Basophils % 0.7 % (0-1.3); Hematocrit 23.4 % (36.0-45.0); Lymphocytes % 9.8 % (15.3-44.8); MPV 8.6 fL (7.6-11.3); Monocytes % 9.2 % (3.3-12.3); RBC Red Blood Cell Count 2.51 M/uL (3.86-4.86)
[2018-05-26 05:47] LABS: Potassium 3.8 mmol/L (3.5-5.1)
[2018-05-26] MEDS: HYDROCODONE/APAP 7.5/325 MG TAB PO PRN ×2 (05:55→20:26)
[2018-05-26] MEDS: INSULIN -REGULAR HUMAN 50 UNIT/0.5 ML ML SQ SCH ×4 (07:30→20:28)
[2018-05-26] MEDS: MIDODRINE HCL 5 MG TABLET PO SCH ×4 (09:00→20:27)
[2018-05-26] MEDS: TRAMADOL HCL 50 MG TAB PO PRN (09:11)
[2018-05-26] MEDS: BUPROPRION HCL S.R. 150MG TAB PO SCH ×2 (09:12→20:27)
[2018-05-26] MEDS: SERTRALINE HCL 50 MG TAB PO SCH (09:12)
[2018-05-26] MEDS: JUVEN PACKET PO SCH ×2 (09:13→21:00)
[2018-05-26] MEDS ORDERED: NA CHLORIDE 0.9% 250 ML ONE (09:37)
[2018-05-26] MEDS ORDERED: HYDROMORPHONE HCL 1 MG/ML INJ IV ONE (11:56)
--- NOTE | 2018-05-26 11:57 | P.PN ---
Subjective Date of Service: 05/27/18 Primary Care Provider: [facility] resident; Nephrology-Dr. Tyler Chief Complaint: left calf hematoma Hb 8.8 after 1 PRBC will give 1 PRBC during HD today need to give midodrine Qdialysis Dialysis tomorrow again for better volume control Cont merrem rt arm swellin dilauded 0.4mg X1 for pain control Physical Examination - Vital Signs Temperature: 97.6 F Blood Pressure: 130/73 Pulse: 60 Respirations: 18 Pulse Ox (%): 100 - Physical Exam General: Alert, Moderate distress HEENT: Atraumatic Neck: Supple, Without JVD or thyroid abnormality Respiratory: Clear to auscultation bilaterally, Normal air movement Cardiovascular: Regular rate/rhythm, Normal S1 S2, Edema - Studies Microbiology Data (last 24 hrs): 05/20/18 16:00 Blood - Blood Aerobic Blood Culture - Final No growth in 5 days. 05/20/18 16:00 Blood - Blood Anaerobic Blood Culture - Final No growth in 5 days. Medications List Reviewed: Yes Assessment And Plan - Current Problems (Diagnosis) (1) Acute blood loss anemia Onset Date: 05/22/18 Current Visit: Yes Status: Acute (2) Hematoma Onset Date: 05/22/18 Current Visit: Yes Status: Acute (3) ESRD (end stage renal disease) on dialysis Onset Date: 10/25/17 Current Visit: No Status: Chronic - Plan A 52-year-old woman [place] resident with PMHx of ESRD 2/2 hepatorenal on HD TTsat hep C and cirrhosis , hypertension, congestive heart failure, hypothyroidism, , diabetes complicated with neuropathy and nephropathy. failed Lt UE AVF Pt was sent from dialysis center for Lt calf swelling and pain pt slipped in the restroom with trauma to the Lt leg, in ER Hb 6.5, plt 43 300 ml aspirated from leg , recived 2 PRBCs no chest pain palpitation, nausea, vomiting or diarrhea Assessment And Plan: End-stage renal disease. from [place] via perm cath on TTsat HD today and tomorrow renal dose meds Acute anemia due to Leg hematoma surgery evaluation transfuse to keep hb.7.0 Lt leg hematoma with compartment evacuated monitor CBC pain control Diabetes as by primary. lt arm wound cont merrem
--- NOTE | 2018-05-26 12:27 | P.PN ---
Subjective Date of Service: 05/26/18 Primary Care Provider: [facility] resident; Nephrology-Dr. Tyler Chief Complaint: left calf hematoma Pt seen and examined at bedside. Chart reviewed. Case discussed with general surgery, hematology, Orthopedics, and nephrology at this time. Patient is status post hematoma evacuation with general surgery POD#3. Doing well overall. This morning her hemoglobin is 7.7. No complaints to offer. States the pain is much better in her left leg than before. Bleeding has also slowed down and her affected leg. Patient had 30 cc of serosanguineous fluid in the BAM drain yesterday and overnight had about 10 cc. Review of Systems 10-point ROS is otherwise unremarkable Physical Examination - Vital Signs Temperature: 97.3 F Blood Pressure: 122/68 Pulse: 58 Respirations: 14 Pulse Ox (%): 100 - Physical Exam General: Alert, In no apparent distress HEENT: Atraumatic, PERRLA, EOMI Neck: Supple, JVD not distended Respiratory: Clear to auscultation bilaterally, Normal air movement Cardiovascular: Regular rate/rhythm, Normal S1 S2 Gastrointestinal: Normal bowel sounds, No tenderness Musculoskeletal: Erythema, Warmth, Other (left Leg hematoma extending from heel to Knee. BAM drain in place. Improving. ) Integumentary: No rashes Neurological: Normal speech, Normal tone, Normal affect Lymphatics: No axilla or inguinal lymphadenopathy - Studies Microbiology Data (last 24 hrs): 05/20/18 16:00 Blood - Blood Aerobic Blood Culture - Final No growth in 5 days. 05/20/18 16:00 Blood - Blood Anaerobic Blood Culture - Final No growth in 5 days. Medications List Reviewed: Yes Assessment And Plan - Current Problems (Diagnosis) (1) Hematoma Onset Date: 05/22/18 Current Visit: Yes Status: Acute Plan: Left calf hematoma measuring 10 cm occurring status post fall -Now S.P Evacuation of the Hematoma by General surgery POD # 3 -currently patient with pressure dressing to the affected area and BAM drain in place -H/H today is 8.0 Platelets are 51. INR is 1.5. -patient currently requiring blood products such as blood transfusion, platelet transfusion FFP, cryo and Vit K given the extensive thrombocytopenia and Acute blood loss. Has gotten 7 FFP, 7 PRBC, 7Cryo, 7Plts and Vit K x 2 thus far. -goal hemoglobin is to be above 8, platelets to be above 50 and INR to be below 1.5 (2) Hemodialysis catheter infection Current Visit: Yes Status: Acute Plan: Hemodialysis catheter on the left arm infected during the last hospitalization and possible this hospitalization as well -wound culture ESBL -catheter removed at [facility] -wound care consulted appreciated recommendations at this time -Wound vac applied to the area by wound care. -IV meropenum 08/06 Qualifiers: Encounter type: subsequent encounter Qualified Code(s): T82.7XXD - Infection and inflammatory reaction due to other cardiac and vascular devices, implants and grafts, subsequent encounter (3) Pancytopenia Onset Date: 11/24/17 Current Visit: No Status: Chronic Plan: Pancytopenia most likely secondary to chronic liver disease versus acute fibrinolysis -Hematology consulted appreciated recommendations at this time -recommends patient to get platelet transfusion of platelets below 50 and bleeding along with FFP and cryo if needed. 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 2 Diabetes mellitus passenger representative insulin use: without [facility] use Diabetes mellitus complication status: without complication Qualified Code(s): E11.9 - Type 2 diabetes mellitus without complications (5) ESRD (end stage renal disease) on dialysis Onset Date: 10/25/17 Current Visit: No Status: Chronic (6) GERD (gastroesophageal reflux disease) Onset Date: 09/27/16 Current Visit: No Status: Chronic Qualifiers: Esophagitis presence: without esophagitis Qualified Code(s): K21.9 - Gastro -esophageal reflux disease without esophagitis (7) HTN (hypertension) Onset Date: 09/27/16 Current Visit: No Status: Chronic Qualifiers: Hypertension type: essential hypertension Qualified Code(s): I10 - Essential (primary) hypertension (8) Hepatitis C Onset Date: 06/07/16 Current Visit: No Status: Chronic Qualifiers: Viral hepatitis chronicity: chronic Hepatic coma status: without hepatic coma Qualified Code(s): B18.2 - Chronic viral hepatitis C (9) Liver cirrhosis Onset Date: 02/16/16 Current Visit: No Status: Chronic Qualifiers: Hepatic cirrhosis type: unspecified hepatic cirrhosis Ascites presence: unspecified Qualified Code(s): K74.60 - Unspecified cirrhosis of liver (10) Congestive heart failure with LV diastolic dysfunction, NYHA class 3 Onset Date: 06/07/16 Current Visit: No Status: Chronic (11) Depression with anxiety Onset Date: 06/07/16 Current Visit: No Status: Chronic - Plan Pending clinical improvement at this time. Now status post hematoma evacuation. Currently with BAM drain in place. Doing well over all. Patient to continue getting FFP, platelets, cryo, PRBC at this time Discharge Plan: Other Plan to discharge in: Greater than 2 days - Code Status/Comfort Care Code Status Assessed: Yes Critical Care: Yes
--- NOTE | 2018-05-26 16:06 | P.PN ---
Date of Service: 05/26/18 S: Patient appears comfortable in the bed. Vital signs are stable. O: Surgical dressing is intact, patient can bend her ankle move her toes. Some hematoma seen in the upper thigh. Had about 70 cc out through BAM drain. A: Patient's medical coagulopathy being addressed. Will postpone taking the dressing down, as it appears to be dry and secure. P: Continue current therapy. Patient also has wound open on the left anterior elbow. Will place a wound VAC.
[2018-05-26] MEDS: D50W 25 GM/50 ML SYRINGE IV PRN ×2 (16:52→21:03)
[2018-05-26] MEDS: Meropenem 1,000 MG in NA CHLORIDE 0.9% 100 ML IV SCH (17:54)
[2018-05-26] MEDS: FAMOTIDINE 20 MG TAB PO SCH (20:26)
[2018-05-27 05:41] LABS: Absolute Lymphocytes (CBC) 0.5 K/uL (0.7-4.9); Absolute Monocytes 0.4 K/uL (0.1-1.3); Absolute Neutrophil 2.8 K/uL (1.8-8.0); Basophils % 0.1 % (0-1.3); Hematocrit 27.5 % (36.0-45.0); Lymphocytes % 13.1 % (15.3-44.8); MPV 8.6 fL (7.6-11.3); Monocytes % 10.1 % (3.3-12.3); RBC Red Blood Cell Count 2.95 M/uL (3.86-4.86)
[2018-05-27] MEDS: HYDROCODONE/APAP 7.5/325 MG TAB PO PRN ×2 (06:03→13:42)
[2018-05-27 06:23] LABS: Potassium 3.5 mmol/L (3.5-5.1)
[2018-05-27] MEDS: INSULIN -REGULAR HUMAN 50 UNIT/0.5 ML ML SQ SCH ×4 (07:30→21:00)
[2018-05-27] MEDS: SERTRALINE HCL 50 MG TAB PO SCH (08:44)
[2018-05-27] MEDS: BUPROPRION HCL S.R. 150MG TAB PO SCH ×2 (08:44→21:00)
[2018-05-27] MEDS: LACTULOSE 20 GM/30 ML UCUP PO SCH ×3 (08:44→19:57)
[2018-05-27] MEDS: MIDODRINE HCL 5 MG TABLET PO SCH ×3 (08:44→19:57)
[2018-05-27] MEDS: JUVEN PACKET PO SCH ×2 (09:00→21:00)
[2018-05-27] MEDS: TRAMADOL HCL 50 MG TAB PO PRN ×2 (09:19→19:57)
[2018-05-27] MEDS: ALBUMIN HUMAN 25% 50 ML IV SCH ×2 (10:18→11:15)
--- NOTE | 2018-05-27 11:16 | P.PN ---
Subjective Date of Service: 05/27/18 Primary Care Provider: [facility]; Nephrology-Dr. Tyler Chief Complaint: left calf hematoma Pt seen and examined at bedside. Chart reviewed. Case discussed with general surgery, hematology, Orthopedics, and nephrology at this time. Patient is status post hematoma evacuation with general surgery POD#5. This morning her hemoglobin is 9.2. Increase in the BAM drainage overnight. Increase in Hematoma of the left leg now extending to the left thigh in the front and dorsal area. Increase in Pain in the leg. Review of Systems 10-point ROS is otherwise unremarkable Physical Examination - Vital Signs Temperature: 97.5 F Blood Pressure: 106/66 Pulse: 61 Respirations: 14 Pulse Ox (%): 100 - Physical Exam General: Alert, Oriented x3, Moderate distress HEENT: Atraumatic, PERRLA, EOMI, Scleral icterus Neck: Supple, JVD not distended Respiratory: Normal air movement, Expiratory wheezes, Inspiratory wheezes Cardiovascular: Regular rate/rhythm, Normal S1 S2 Gastrointestinal: Normal bowel sounds, Soft and benign, Non-distended, No tenderness Musculoskeletal: Swelling, Other (Left leg with Hematoma and BAM drain in place. Extending to the thigh now, Left leg warm, tender to touch. ) Integumentary: No rashes Neurological: Normal speech, Normal tone, Normal affect - Studies Medications List Reviewed: Yes Assessment And Plan - Current Problems (Diagnosis) (1) Hematoma Onset Date: 05/22/18 Current Visit: Yes Status: Acute Plan: Left calf hematoma measuring 10 cm occurring status post fall -Now S.P Evacuation of the Hematoma by General surgery POD # 5 -currently patient with pressure dressing to the affected area and BAM drain in place -No improvement today. Hematoma extending to the thigh area. -H/H today is 9.2 Platelets are 33. INR is 1.5. -patient currently requiring blood products such as blood transfusion, platelet transfusion FFP, cryo and Vit K given the extensive thrombocytopenia and Acute blood loss. -Has gotten 7 FFP, 7 PRBC, 7Cryo, 7Plts and Vit K x 2 thus far. -goal hemoglobin is to be above 8, platelets to be above 50 and INR to be below 1.5 (2) Hemodialysis catheter infection Current Visit: Yes Status: Acute Plan: Hemodialysis catheter on the left arm infected during the last hospitalization and possible this hospitalization as well -wound culture ESBL -catheter removed at [facility] -wound care consulted appreciated recommendations at this time -Wound vac applied to the area by wound care. -IV meropenum 09/05 Qualifiers: Encounter type: subsequent encounter Qualified Code(s): T82.7XXD - Infection and inflammatory reaction due to other cardiac and vascular devices, implants and grafts, subsequent encounter (3) Pancytopenia Onset Date: 11/24/17 Current Visit: No Status: Chronic Plan: Pancytopenia most likely secondary to chronic liver disease versus acute fibrinolysis -Hematology consulted appreciated recommendations at this time -recommends patient to get platelet transfusion of platelets below 50 and bleeding along with FFP and cryo if needed. 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 2 Diabetes mellitus precision honer insulin use: without precision honer use Diabetes mellitus complication status: without complication Qualified Code(s): E11.9 - Type 2 diabetes mellitus without complications (5) ESRD (end stage renal disease) on dialysis Onset Date: 10/25/17 Current Visit: No Status: Chronic (6) GERD (gastroesophageal reflux disease) Onset Date: 09/27/16 Current Visit: No Status: Chronic Qualifiers: Esophagitis presence: without esophagitis Qualified Code(s): K21.9 - Gastro -esophageal reflux disease without esophagitis (7) HTN (hypertension) Onset Date: 09/27/16 Current Visit: No Status: Chronic Qualifiers: Hypertension type: essential hypertension Qualified Code(s): I10 - Essential (primary) hypertension (8) Hepatitis C Onset Date: 06/07/16 Current Visit: No Status: Chronic Qualifiers: Viral hepatitis chronicity: chronic Hepatic coma status: without hepatic coma Qualified Code(s): B18.2 - Chronic viral hepatitis C (9) Liver cirrhosis Onset Date: 02/16/16 Current Visit: No Status: Chronic Qualifiers: Hepatic cirrhosis type: unspecified hepatic cirrhosis Ascites presence: unspecified Qualified Code(s): K74.60 - Unspecified cirrhosis of liver (10) Congestive heart failure with LV diastolic dysfunction, NYHA class 3 Onset Date: 06/07/16 Current Visit: No Status: Chronic (11) Depression with anxiety Onset Date: 06/07/16 Current Visit: No Status: Chronic - Plan Pending clinical improvement at this time. Will need LTAC placement for IV abx , wound vac care of the left arm and Wound care of the left leg. Pt has extensive medical history that require several Physician speciality to care for her chornic condition and acute illness. Discharge Plan: LTAC Plan to discharge in: 72 Hours - Code Status/Comfort Care Code Status Assessed: Yes Critical Care: No
[2018-05-27] MEDS: EPOETIN ALFA 10,000 UNIT/ML VIAL SQ SCH (11:28)
[2018-05-27 11:52] LABS: Absolute Lymphocytes (CBC) 0.4 K/uL (0.7-4.9); Absolute Monocytes 0.3 K/uL (0.1-1.3); Absolute Neutrophil 2.3 K/uL (1.8-8.0); Basophils % 0.1 % (0-1.3); Eosinophils % 1.2 % (0-4.4); Hematocrit 26.6 % (36.0-45.0); Lymphocytes % 13.3 % (15.3-44.8); MPV 8.8 fL (7.6-11.3); Monocytes % 8.6 % (3.3-12.3); RBC Red Blood Cell Count 2.85 M/uL (3.86-4.86)
[2018-05-27] MEDS ORDERED: DESMOPRESSIN 4 MCG/ML AMP IV ONE (13:20)
[2018-05-27] MEDS ORDERED: NA CHLORIDE 0.9% 250 ML ONE (13:50)
[2018-05-27 13:53] LABS: Protime INR 1.56
[2018-05-27] MEDS ORDERED: DESMOPRESSIN 20 MCG in NA CHLORIDE 0.9% 50 ML IV SCH (14:00)
--- NOTE | 2018-05-27 14:35 | PN ---
Date of Progress Note: 05/27/2018 NEPHROLOGY FOLLOWUP Subjective: The patient had anasarca as peripheral edema. The patient had hematoma, infected. The patient received multiple blood transfusions and FFP. We have been trying to establish better volume control, but with marginal low blood pressure going to be challenged. Physical Examination: General: The patient is seen on dialysis, getting sequential today. Vital Signs: Blood pressure 97/50 and pulse of 88. Chest: Decreased entry bilateral base. Heart: S1 and S2, systolic murmur. Abdomen: Soft, nontender, ascites. Extremities: Wound VAC on the left elbow and drainage on the left leg. Neurologic: Alert, oriented. Laboratory Data: WBC 3, H and H of 9.3 and 26.6, platelets of 31. Sodium 135, potassium 3.5, bicarb 28, BUN 27, creatinine of 3, and calcium 7.9. Current Medications: The patient on include, 1.Meropenem. 2.Midodrine. 3.Aripiprazole. 4.Bupropion. 5.Zoloft. 6.Pepcid. 7.Fentanyl. 8.Tramadol. Assessment And Plan: 1.End-stage renal disease, over-volume. I am going to continue to do daily sequential. We will arr ronan for another session of dialysis tomorrow and we will monitor the patient. 2.We will use albumin and low temperature to establish better sustained blood pressure to do the seq uential and we will follow up. 3.Hypertension, currently hypotension and we will use midodrine. I am going to go ahead and send fo r cortisol level. 4.Anasarca secondary to renal failure and cirrhosis. Continue daily dialysis and we will monitor th e patient. 5.Cirrhosis, as by primary. 6.Extended-spectrum beta-lactamase infected wound. Continue current antibiotic with meropenem. We will follow up. JAYLA/VANIA Voice ID: [id number] Report ID: [id number]
--- NOTE | 2018-05-27 16:30 | RAD REPORT ---
EXAM DESCRIPTION: RAD - Chest Single View - 05/27/2018 4:22 pm CLINICAL HISTORY: COPD COMPARISON: May 19 TECHNIQUE: AP portable chest image was obtained 1617 hours . FINDINGS: Lung volumes are low. No peripheral mass or consolidation. No significant failure or volum e overload. Heart and vasculature are accentuated by the shallow inspiration. Dialysis catheter in pl graciela. Heart and vasculature are normal. No measurable pleural effusion and no pneumothorax. No acute b david abnormality seen. No acute aortic findings suspected. IMPRESSION: No acute cardiopulmonary process. No significant change from comparison.
[2018-05-27 18:21] LABS: MPV 9.1 fL (7.6-11.3)
[2018-05-27] MEDS: Meropenem 1,000 MG in NA CHLORIDE 0.9% 100 ML IV SCH (19:24)
[2018-05-27] MEDS: FAMOTIDINE 20 MG TAB PO SCH (19:57)
[2018-05-28] MEDS: TRAMADOL HCL 50 MG TAB PO PRN (04:25)
[2018-05-28 05:23] LABS: Absolute Lymphocytes (CBC) 0.5 K/uL (0.7-4.9); Absolute Monocytes 0.4 K/uL (0.1-1.3); Absolute Neutrophil 2.2 K/uL (1.8-8.0); Basophils % 0.5 % (0-1.3); Eosinophils % 2.2 % (0-4.4); Hematocrit 27.1 % (36.0-45.0); Lymphocytes % 15.9 % (15.3-44.8); MPV 8.5 fL (7.6-11.3); Monocytes % 12.1 % (3.3-12.3)
[2018-05-28 05:51] LABS: Albumin 2.8 g/dL (3.4-5.0); Potassium 3.7 mmol/L (3.5-5.1)
[2018-05-28 06:00] LABS: Thyroid Stimulating Hormone 7.38 uIU/mL (0.360-3.740)
[2018-05-28] MEDS: INSULIN -REGULAR HUMAN 50 UNIT/0.5 ML ML SQ SCH ×4 (07:30→20:30)
[2018-05-28] MEDS: HYDROCODONE/APAP 7.5/325 MG TAB PO PRN ×2 (07:45→21:03)
[2018-05-28] MEDS: LACTULOSE 20 GM/30 ML UCUP PO SCH ×3 (08:16→20:29)
[2018-05-28] MEDS: JUVEN PACKET PO SCH ×2 (08:17→20:31)
[2018-05-28] MEDS: MIDODRINE HCL 5 MG TABLET PO SCH ×3 (08:17→20:30)
[2018-05-28] MEDS: BUPROPRION HCL S.R. 150MG TAB PO SCH ×2 (08:17→20:30)
[2018-05-28] MEDS: SERTRALINE HCL 50 MG TAB PO SCH (08:17)
[2018-05-28] MEDS ORDERED: NA CHLORIDE 0.9% 250 ML ONE ×2 (09:06→14:27)
[2018-05-28 11:34] LABS: Platelet Estimate DECR
--- NOTE | 2018-05-28 11:41 | P.PN ---
Subjective Date of Service: 05/28/18 Primary Care Provider: senior living resident; Nephrology-Dr. Tyler Chief Complaint: left calf hematoma Pt seen and examined at bedside. Chart reviewed. Case discussed with general surgery, hematology, Orthopedics, and nephrology at this time. Patient is status post hematoma evacuation with general surgery POD#6. Patient at length discussed with general surgery regarding possible wound VAC placement to the affected area after the dressing change yesterday. Increase drainage from the left leg hematoma incision area. Review of Systems 10-point ROS is otherwise unremarkable Physical Examination - Vital Signs Temperature: 97 F Blood Pressure: 123/60 Pulse: 68 Respirations: 18 Pulse Ox (%): 100 - Physical Exam General: Alert, Moderate distress HEENT: Atraumatic, PERRLA, Other (Jaundice), EOMI, Scleral icterus Neck: Supple, JVD distended Respiratory: Normal air movement, Expiratory wheezes, Inspiratory wheezes Cardiovascular: Regular rate/rhythm, Normal S1 S2 Gastrointestinal: Normal bowel sounds, No tenderness Musculoskeletal: Other (Left leg the currently wrapped in Poncho wrap. Pulses palpated bone distally. Patient able to have full range of movement in the toes. Hematoma noted in the thigh area as well. Dressing change yesterday revealed increased drainage at the incision site) Integumentary: No rashes Neurological: Normal speech, Normal tone, Normal affect Lymphatics: No axilla or inguinal lymphadenopathy - Studies Medications List Reviewed: Yes Assessment And Plan - Current Problems (Diagnosis) (1) Hematoma Onset Date: 05/22/18 Current Visit: Yes Status: Acute Plan: Left calf hematoma measuring 10 cm occurring status post fall -Now S.P Evacuation of the Hematoma by General surgery POD # 6 -currently patient with pressure dressing to the affected area and BAM drain in place -case at length discussed with general surgery regarding possibility surgical procedure with wound VAC placement. Will follow up after their evaluation -patient currently requiring blood products such as blood transfusion, platelet transfusion FFP, cryo and Vit K given the extensive thrombocytopenia and Acute blood loss. -Has gotten 7 FFP, 8 PRBC, 7Cryo, 7Plts and Vit K x 2 thus far. -goal hemoglobin is to be above 8, platelets to be above 50 and INR to be below 1.5 (2) Hemodialysis catheter infection Current Visit: Yes Status: Acute Plan: Hemodialysis catheter on the left arm infected during the last hospitalization and possible this hospitalization as well -wound culture ESBL -catheter removed at [facility] -wound care consulted appreciated recommendations at this time -Wound vac applied to the area by wound care. -IV meropenum 10/06 Qualifiers: Encounter type: subsequent encounter Qualified Code(s): T82.7XXD - Infection and inflammatory reaction due to other cardiac and vascular devices, implants and grafts, subsequent encounter (3) Pancytopenia Onset Date: 11/24/17 Current Visit: No Status: Chronic Plan: Pancytopenia most likely secondary to chronic liver disease versus acute fibrinolysis -Hematology consulted appreciated recommendations at this time -recommends patient to get platelet transfusion of platelets below 50 and bleeding along with FFP and cryo if needed. 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 2 Diabetes mellitus deli cutter slicer insulin use: without deli cutter slicer use Diabetes mellitus complication status: without complication Qualified Code(s): E11.9 - Type 2 diabetes mellitus without complications (5) ESRD (end stage renal disease) on dialysis Onset Date: 10/25/17 Current Visit: No Status: Chronic (6) GERD (gastroesophageal reflux disease) Onset Date: 09/27/16 Current Visit: No Status: Chronic Qualifiers: Esophagitis presence: without esophagitis Qualified Code(s): K21.9 - Gastro -esophageal reflux disease without esophagitis (7) HTN (hypertension) Onset Date: 09/27/16 Current Visit: No Status: Chronic Qualifiers: Hypertension type: essential hypertension Qualified Code(s): I10 - Essential (primary) hypertension (8) Hepatitis C Onset Date: 06/07/16 Current Visit: No Status: Chronic Qualifiers: Viral hepatitis chronicity: chronic Hepatic coma status: without hepatic coma Qualified Code(s): B18.2 - Chronic viral hepatitis C (9) Liver cirrhosis Onset Date: 02/16/16 Current Visit: No Status: Chronic Qualifiers: Hepatic cirrhosis type: unspecified hepatic cirrhosis Ascites presence: unspecified Qualified Code(s): K74.60 - Unspecified cirrhosis of liver (10) Congestive heart failure with LV diastolic dysfunction, NYHA class 3 Onset Date: 06/07/16 Current Visit: No Status: Chronic (11) Depression with anxiety Onset Date: 06/07/16 Current Visit: No Status: Chronic - Plan Pending clinical improvement at this time. Will need LTAC placement for IV abx , wound vac care of the left arm and Wound care of the left leg. Pt has extensive medical history that require several Physician speciality to care for her chornic condition and acute illness. Discharge Plan: LTAC Plan to discharge in: 72 Hours - Code Status/Comfort Care Code Status Assessed: Yes Critical Care: No
[2018-05-28] MEDS: EPOETIN ALFA 10,000 UNIT/ML VIAL SQ SCH (12:10)
[2018-05-28 14:41] LABS: Protime INR 1.49
[2018-05-28 14:45] LABS: Protein, Total 6.8 g/dL (6.4-8.2)
[2018-05-28 14:47] LABS: Bilirubin Total 8.8 mg/dL (0.2-1.0)
--- NOTE | 2018-05-28 14:48 | PN ---
Date of Progress Note: 05/28/2018 Subjective: The patient is feeling slightly better. We managed to remove 2 L yesterday. Blood pres sure stays stable. Physical Examination: Vital Signs: Blood pressure 123/60, pulse of 68. Chest: Decreased entry bilateral base. Heart: S1, S2. Systolic murmur. Abdomen: Soft, nontender. Extremities: Wound VAC on the left elbow, compression dressing on the left leg up to the mid thigh, +2 edema on the right. Laboratory Data: WBC 3.1, H and H 9.3/27.1, and platelets 35. Sodium 134, potassium 3.7, bicarb 29, BUN 31, creatinine 3.5, calcium 8.3, phosphorus of 3. Cortisol level of 4.4. TSH 7. Current Medications: The patient on include: 1.Midodrine. 2.Meropenem. 3.Epogen. 4.Zoloft. 5.Todd. 6.Pepcid. 7.Zofran. Assessment And Plan: 1.End-stage renal disease with anasarca. I am going to continue with daily dialysis for the time be ing. Tomorrow is going to be her regular dialysis and we will monitor. 2.Hypertension, currently hypotension. We will continue midodrine. 3.Anasarca, multifactorial secondary to renal failure. 4.Hypothyroidism. I am going to restart the patient on levothyroxine and we will continue to challe nge the patient. 5.Wound infection and hematoma. Follow up with Surgery. Plan for platelet today. 6.Anemia secondary to blood loss. Follow up with Hematology. Continue Epogen. Continue p.r.n. tra nsfusion. 7.Cirrhosis as by primary. 8.Hypotension, questionable if it is related to relative adrenal insufficiency. I going to get lynne isol stimulation test and we will follow up. JAYLA/VANIA Voice ID: [id number] Report ID: [id number]
[2018-05-28 15:02] LABS: Absolute Lymphocytes (CBC) 0.4 K/uL (0.7-4.9); Absolute Monocytes 0.4 K/uL (0.1-1.3); Absolute Neutrophil 2.4 K/uL (1.8-8.0); Basophils % 0.2 % (0-1.3); Eosinophils % 1.7 % (0-4.4); Hematocrit 29.3 % (36.0-45.0); Lymphocytes % 13.1 % (15.3-44.8); MPV 8.1 fL (7.6-11.3); RBC Red Blood Cell Count 3.13 M/uL (3.86-4.86)
--- NOTE | 2018-05-28 15:56 | P.PN ---
Date of Service: 05/28/18 S: If the patient is sitting up, interactive, vital signs are stable O: Poncho wrap taking down to the dressing was taken all way down to the I had. Had some small clots in the BAM drain. Her left leg is much less swollen, much softer, and no evidence of active bleeding at this time. A: The patients bleeding appears to be under control and time. I do not want to take down the dressing any lower, as it has taken almost a week to stop this bleeding. Tomorrow, provided that there is no increase in output from the BAM drain or we have any under indication of active bleeding, I will take the dressing all the way down. There is 1 area of skin loss approximately 4 inches x 2 inches in the left lower leg. This may benefit from a wound VAC. P: Reassess dressing tomorrow a.m.. Patient is possibly eligible for LTAC. This would be of benefit to her has dialysis can help with her platelet count. She will most likely need some type of closure in the future on that left lower leg, possible skin graft. A wound VAC may help to prepare the bed, and the compression aid with hemostasis. Will reassess in a.m..
[2018-05-28] MEDS: Meropenem 1,000 MG in NA CHLORIDE 0.9% 100 ML IV SCH (16:46)
[2018-05-28 16:47] LABS: Anisocytosis 2+; Blood Morphology Comment NOTED (NOT SEEN); Platelet Estimate DECR; Urine White Blood Cell Casts OK
[2018-05-28 17:33] LABS: MPV 8.6 fL (7.6-11.3)
[2018-05-28 17:53] LABS: Platelet Estimate DECR
[2018-05-28] MEDS: FAMOTIDINE 20 MG TAB PO SCH (20:30)
[2018-05-29] MEDS: LEVOTHYROXINE SOD 0.05 MG TABLET PO SCH (05:14)
[2018-05-29 05:26] LABS: Absolute Lymphocytes (CBC) 0.7 K/uL (0.7-4.9); Absolute Monocytes 0.4 K/uL (0.1-1.3); Absolute Neutrophil 2.7 K/uL (1.8-8.0); Basophils % 1.1 % (0-1.3); Eosinophils % 2.6 % (0-4.4); Hematocrit 28.2 % (36.0-45.0); Lymphocytes % 18.5 % (15.3-44.8); MPV 8.1 fL (7.6-11.3)
[2018-05-29 05:48] LABS: Albumin 2.8 g/dL (3.4-5.0); Phosphorus 3.2 mg/dL (2.5-4.9); Potassium 3.8 mmol/L (3.5-5.1)
[2018-05-29] MEDS ORDERED: SODIUM CHLORIDE 0.9% 10ML INJ IV ONE (07:15)
[2018-05-29] MEDS ORDERED: COSYNTROPIN 0.25 MG VIAL IV ONE (07:15)
[2018-05-29] MEDS: INSULIN -REGULAR HUMAN 50 UNIT/0.5 ML ML SQ SCH ×4 (07:30→21:00)
[2018-05-29] MEDS: D50W 25 GM/50 ML SYRINGE IV PRN (07:35)
[2018-05-29] MEDS: ARIPiprazole 5 MG TAB PO SCH (09:44)
[2018-05-29] MEDS: SERTRALINE HCL 50 MG TAB PO SCH (09:44)
[2018-05-29] MEDS: BUPROPRION HCL S.R. 150MG TAB PO SCH ×2 (09:44→21:47)
[2018-05-29] MEDS: MIDODRINE HCL 5 MG TABLET PO SCH ×4 (09:44→21:47)
[2018-05-29] MEDS: JUVEN PACKET PO SCH ×2 (09:45→21:46)
--- NOTE | 2018-05-29 10:59 | P.PN ---
Subjective Date of Service: 05/29/18 Primary Care Provider: half-way resident; Nephrology-Dr. Tyler Chief Complaint: left calf hematoma Pt seen and examined at bedside. Chart reviewed. Case discussed with general surgery, hematology, Orthopedics, and nephrology at this time. Patient is status post hematoma evacuation with general surgery POD#7. Patient at length discussed with general surgery regarding possible wound VAC placement to the affected area after the dressing change. Increase drainage from the left leg hematoma incision area. Plan for Wound vac placement to the Left leg today and Then placement in LTAC at [facility]. Review of Systems 10-point ROS is otherwise unremarkable Physical Examination - Vital Signs Temperature: 96.7 F Blood Pressure: 129/76 Pulse: 65 Respirations: 12 Pulse Ox (%): 100 - Physical Exam General: Alert, In no apparent distress HEENT: Atraumatic, PERRLA, EOMI Neck: Supple, JVD not distended Respiratory: Normal air movement, Expiratory wheezes, Inspiratory wheezes Cardiovascular: Regular rate/rhythm, Normal S1 S2 Gastrointestinal: Normal bowel sounds, No tenderness Musculoskeletal: Other (Left leg hematoma. Currently wrapped with Coban. Drainage noted. BAM drain in place as well. Hematoma extending to the upper thigh. Distal pulses palpated full sensation intact today. Patient able to have range of motion in the feet and toes area. ) Integumentary: No rashes Neurological: Normal speech, Normal tone, Normal affect Lymphatics: No axilla or inguinal lymphadenopathy - Studies Medications List Reviewed: Yes Assessment And Plan - Current Problems (Diagnosis) (1) Hematoma Onset Date: 05/22/18 Current Visit: Yes Status: Acute Plan: Left calf hematoma measuring 10 cm occurring status post fall -Now S.P Evacuation of the Hematoma by General surgery POD # 7 -currently patient with pressure dressing to the affected area and BAM drain in place -case at length discussed with general surgery regarding possibility surgical procedure with wound VAC placement today. -patient currently requiring blood products such as blood transfusion, platelet transfusion FFP, cryo and Vit K given the extensive thrombocytopenia and Acute blood loss. -Has gotten 7 FFP, 8 PRBC, 7Cryo, 7Plts and Vit K x 2 thus far. -goal hemoglobin is to be above 8, platelets to be above 50 and INR to be below 1.5 (2) Hemodialysis catheter infection Current Visit: Yes Status: Acute Plan: Hemodialysis catheter on the left arm infected during the last hospitalization and possible this hospitalization as well -wound culture ESBL -catheter removed at [facility] -wound care consulted appreciated recommendations at this time -Wound vac applied to the area by wound care. -IV meropenum 11/05 Qualifiers: Encounter type: subsequent encounter Qualified Code(s): T82.7XXD - Infection and inflammatory reaction due to other cardiac and vascular devices, implants and grafts, subsequent encounter (3) Pancytopenia Onset Date: 11/24/17 Current Visit: No Status: Chronic Plan: Pancytopenia most likely secondary to chronic liver disease versus acute fibrinolysis -Hematology consulted appreciated recommendations at this time -recommends patient to get platelet transfusion of platelets below 50 and bleeding along with FFP and cryo if needed. 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 2 Diabetes mellitus custodial insulin use: without custodial use Diabetes mellitus complication status: without complication Qualified Code(s): E11.9 - Type 2 diabetes mellitus without complications (5) ESRD (end stage renal disease) on dialysis Onset Date: 10/25/17 Current Visit: No Status: Chronic (6) GERD (gastroesophageal reflux disease) Onset Date: 09/27/16 Current Visit: No Status: Chronic Qualifiers: Esophagitis presence: without esophagitis Qualified Code(s): K21.9 - Gastro -esophageal reflux disease without esophagitis (7) HTN (hypertension) Onset Date: 09/27/16 Current Visit: No Status: Chronic Qualifiers: Hypertension type: essential hypertension Qualified Code(s): I10 - Essential (primary) hypertension (8) Hepatitis C Onset Date: 06/07/16 Current Visit: No Status: Chronic Qualifiers: Viral hepatitis chronicity: chronic Hepatic coma status: without hepatic coma Qualified Code(s): B18.2 - Chronic viral hepatitis C (9) Liver cirrhosis Onset Date: 02/16/16 Current Visit: No Status: Chronic Qualifiers: Hepatic cirrhosis type: unspecified hepatic cirrhosis Ascites presence: unspecified Qualified Code(s): K74.60 - Unspecified cirrhosis of liver (10) Congestive heart failure with LV diastolic dysfunction, NYHA class 3 Onset Date: 06/07/16 Current Visit: No Status: Chronic (11) Depression with anxiety Onset Date: 06/07/16 Current Visit: No Status: Chronic - Plan Pending clinical improvement at this time. Possible Wound vac placement today on the left leg. Pending LTAC placement for IV abx, wound vac care and daily dialysis. Pt has extensive medical history that require several Physician speciality to care for her chronic condition and acute illness. Discharge Plan: LTAC Plan to discharge in: 72 Hours - Code Status/Comfort Care Code Status Assessed: Yes Critical Care: Yes
[2018-05-29] MEDS ORDERED: D5W 1,000 ML IV SCH (11:00)
--- NOTE | 2018-05-29 13:30 | P.PN ---
Date of Service: 05/29/18 S: Patient states she feels slightly better today, vital signs are stable. Comfortably resting in the bed, interactive today O : The surgical dressing was taken down to inspect the wound. The wound is approximately 14 inches in length. Any upper fired it is missing approximately 4 x 3 inches. Clean tissue that is not bleeding is visualize underneath this. The rest of the incision extends down to just above the ankle. This large skin flaps still appears to be viable although it is dusky in congested. The underlying tissue once again is not bleeding is clean no evidence of any infection. The Mason-Garcia drain was lifted out of the wound. At this point a piece of Xeroform gauze was placed over the wound is well some 4x4s. We have also wrapped with Kerlix roll. The wound VAC in the left upper arm is in place, and appears to be working well. A: Appears that the patients coagulopathy is under control at this current time . She will require wound care until this wound and demarcates. I discussed the possibility of skin grafts with her. She is going to be most likely transfer to an LTAC unit. She appears comfortable at this decision peer P : Okay for transfer from a surgical point of view peer l
[2018-05-29] MEDS: HYDROCODONE/APAP 7.5/325 MG TAB PO PRN (13:31)
--- NOTE | 2018-05-29 14:33 | RAD REPORT ---
EXAM DESCRIPTION: CT - Head Brain Wo Cont - 05/29/2018 2:26 pm CLINICAL HISTORY: seizure like activity Headache, seizure COMPARISON: Head Brain Wo Cont dated 02/05/2018; Head Brain Wo Cont dated 12/29/2017 TECHNIQUE: All CT scans are performed using dose optimization technique as appropriate and may inclu de automated exposure control or mA/KV adjustment according to patient size. FINDINGS: No intracranial hemorrhage, hydrocephalus or extra-axial fluid collection.No areas of brai n edema or evidence of midline shift. Fluid is present in the sphenoid sinuses. The paranasal sinuses and mastoids otherwise clear. The yady varium is intact. IMPRESSION: No acute intracranial abnormality. Moderate fluid in the sphenoid sinus.
[2018-05-29 14:44] LABS: Absolute Lymphocytes (CBC) 0.6 K/uL (0.7-4.9); Absolute Monocytes 0.4 K/uL (0.1-1.3); Absolute Neutrophil 3.4 K/uL (1.8-8.0); Basophils % 0.3 % (0-1.3); Eosinophils % 0.5 % (0-4.4); Hematocrit 32.9 % (36.0-45.0); Lymphocytes % 13.1 % (15.3-44.8); MPV 8.6 fL (7.6-11.3); Monocytes % 9.1 % (3.3-12.3)
[2018-05-29 14:57] LABS: Potassium 4.4 mmol/L (3.5-5.1)
[2018-05-29 15:02] LABS: Bilirubin Total 8.3 mg/dL (0.2-1.0)
[2018-05-29] MEDS ORDERED: NA CHLORIDE 0.9% 100 ML ONE (15:15)
[2018-05-29] MEDS ORDERED: levETIRAcetam 500 MG in NA CHLORIDE 0.9% 100 ML IV ONE (16:30)
[2018-05-29] MEDS: Meropenem 1,000 MG in NA CHLORIDE 0.9% 100 ML IV SCH (17:23)
[2018-05-29 17:28] LABS: MPV 8.4 fL (7.6-11.3)
[2018-05-29 20:28] LABS: Platelet Estimate DECR
[2018-05-29] MEDS ORDERED: levETIRAcetam 500 MG in NA CHLORIDE 0.9% 100 ML IV SCH (21:00)
[2018-05-29] MEDS: FAMOTIDINE 20 MG TAB PO SCH (21:47)
--- NOTE | 2018-05-30 03:23 | PN ---
Date of Progress Note: 05/29/2018 Chief Complaint: Fluid overload, anasarca, and end-stage renal disease. Subjective: The patient is undergoing dialysis to obtain ultrafiltration and to control fluid overlo ad. Anasarca is secondary to end-stage renal disease. The patient has hypoalbuminemia due to cirrho sis and is undergoing treatment with dialysis as tolerated. Yesterday, she had ultrafiltration with 2 L. today, ultrafiltration is up to 3 L. The patient is tolerating procedure. Review of Systems: The patient is lethargic, although she denies PND or orthopnea. Physical Examination: Lungs: Decreased breath sound bilaterally. Heart: S1 and S2. A 2/6 systolic murmur, left lower sternal border. Abdomen: Soft, nontender. Extremities: Wound VAC is present and dressing over the left leg is present. Laboratory Work: Sodium 164, potassium 3.7, bicarbonate 29, BUN 31, creatinine 3.5, calcium 8.3, and phosphorus 3. TSH 7. Impression And Plan: 1.End-stage renal disease. The patient has fluid overload and anasarca. Continue dialysis, p.o. fl uid restriction, and ultrafiltration as tolerated. 2.Intradialytic hypotension. Continue midodrine. Adjust ultrafiltration goal accordingly. The pat ient is to have cortisol stimulation test done to rule out adrenal insufficiency. 3.Hypothyroid. The patient will continue levothyroxine. Continue treatment. Monitor TSH. 4.Wound infection hematoma. Surgery Team is following patient for wound care. 5.Anemia and chronic kidney disease. The patient will continue . She may require transfusion according to hemoglobin level. EB/MODL Voice ID: [id number] Report ID: [id number]
[2018-05-30] MEDS ORDERED: levETIRAcetam 500 MG in NA CHLORIDE 0.9% 100 ML IV SCH (05:00)
[2018-05-30] MEDS: LEVOTHYROXINE SOD 0.05 MG TABLET PO SCH (05:35)
[2018-05-30 05:56] LABS: Albumin 2.6 g/dL (3.4-5.0); Phosphorus 2.7 mg/dL (2.5-4.9); Potassium 3.6 mmol/L (3.5-5.1)
[2018-05-30] MEDS: INSULIN -REGULAR HUMAN 50 UNIT/0.5 ML ML SQ SCH ×2 (07:30→11:30)
[2018-05-30] MEDS: BUPROPRION HCL S.R. 150MG TAB PO SCH (07:50)
[2018-05-30] MEDS: HYDROCODONE/APAP 7.5/325 MG TAB PO PRN ×2 (07:51→13:55)
[2018-05-30] MEDS: MIDODRINE HCL 5 MG TABLET PO SCH ×2 (07:51→15:21)
[2018-05-30] MEDS: SERTRALINE HCL 50 MG TAB PO SCH (07:52)
[2018-05-30] MEDS: LACTULOSE 20 GM/30 ML UCUP PO SCH ×2 (07:52→14:00)
[2018-05-30] MEDS: JUVEN PACKET PO SCH (07:52)
[2018-05-30 09:03] LABS: Absolute Lymphocytes (CBC) 0.6 K/uL (0.7-4.9); Absolute Monocytes 0.6 K/uL (0.1-1.3); Absolute Neutrophil 2.4 K/uL (1.8-8.0); Basophils % 0.4 % (0-1.3); Eosinophils % 2.7 % (0-4.4); Hematocrit 28.6 % (36.0-45.0); Lymphocytes % 16.5 % (15.3-44.8); MPV 8.1 fL (7.6-11.3); Monocytes % 15.1 % (3.3-12.3); RBC Red Blood Cell Count 3.02 M/uL (3.86-4.86)
[2018-05-30 09:36] VITALS: O2SAT 100
[2018-05-30 10:42] LABS: Blood Morphology Comment NOTED (NOT SEEN); Platelet Estimate DECR; Urine White Blood Cell Casts OK
[2018-05-30 10:43] LABS: Anisocytosis 1+; Macrocytosis 1+
[2018-05-30] MEDS ORDERED: DEXTROSE 10%-WATER 500 ML IV SCH (11:30)
--- NOTE | 2018-05-30 13:59 | PN ---
Date of Progress Note: 05/30/2018 NEPHROLOGY FOLLOWUP Subjective: The patient post dialysis yesterday had seizure. Still complaining from leg pain today, we managed to remove 2500. Physical Examination: General: When I saw the patient, the patient was lying in bed. Vital Signs: Blood pressure 103/57, pulse of 65, again yesterday we managed to remove 2500. Chest: Decreased entry bilateral base. Heart: S1 and S2, systolic murmur. Abdomen: Soft, nontender. Extremities: +1 edema. Wound VAC on the left elbow, compression dressing on the left leg. Laboratory Data: WBC 3.8, H and H of 9.9 and 28.6, platelets 41. Sodium 137, potassium 3.6, bicarb 30, BUN 25, creatinine 2.9, calcium 8.2, phosphorus 2.7, albumin 2.6, corrected calcium is 9.4. Current Medications: The patient on include, 1.Meropenem. 2.Midodrine. 3.Epogen. 4.Keppra. 5.Zoloft. 6.Lactulose. 7.Pepcid. 8.Zofran. Assessment And Plan: 1.End-stage renal disease, over-volume. I am going to hold on the dialysis today given the incidenc e of the seizure yesterday right post dialysis. We will watch closely. 2.Hypertension, currently low blood pressure. We will continue to use midodrine. 3.Over-volume, as above we will continue p.r.n. dialysis. 4.Hypoglycemia. We will switch from D5 to D10 and we will monitor the patient. 5.New-onset seizure as by Neurology. 6.Cirrhosis as by primary. 7.Wound infection. Continue current antibiotic. Follow up with ID. 8.Bleeding from the wound with thrombocytopenia secondary to cirrhosis. Currently, H and H are stab le. Continue Epogen, p.r.n. platelet and FFP as by Hematology. JAYLA/VANIA Voice ID: [id number] Report ID: [id number]
[2018-05-30] MEDS ORDERED: LACTULOSE 20 GM/30 ML UCUP PO SCH (14:00)
[2018-05-30 16:33] VITALS: BP 134/86; TEMP 97.4
--- NOTE | 2018-05-31 00:42 | DS ---
Date of Discharge: 05/30/2018 Consultants: 1.Jamie Woods M.D., General Surgery. 2.Breanna Tyler M.D., with Nephrology. 3.Roc Frye M.D., with Infectious Disease. 4.Dominguez Ashby M.D., with Orthopedics. 5.Francisca Sen M.D., with Hematology. 6.Luis Espinosa M.D., with Neurology. Procedure: On 05/23/[address] Woods, exploration and debridement of hematoma of the left lower l eg. Admitting Diagnoses: 1.Chronic anemia. 2.Acute blood loss anemia. 3.Hematoma. 4.Diabetes mellitus type 2 with long-term use of insulin, with kidney disease. 5.End-stage renal disease, on dialysis. 6.Hypotension due to hypovolemia. 7.Liver cirrhosis, without coma. 8.Thrombocytopenia. Discharge Diagnoses: 1.Hematoma, left calf, status post evacuation, postoperative day #8. 2.Hemodialysis catheter infection on the left arm with extended-spectrum beta-lactamase Escherichia coli. 3.Extended-spectrum beta-lactamase Escherichia coli infection. 4.Pancytopenia. 5.Diabetes mellitus type 2 with long-term use of insulin with end-stage renal disease. 6.End-stage renal disease, on hemodialysis. 7.Gastroesophageal reflux disease. 8.Essential hypertension. 9.Hepatitis C, chronic, without coma. 10.Hepatic cirrhosis. 11.Congestive heart failure with left ventricular diastolic dysfunction, [place] Heart Association class 3. 12.Depression with anxiety. Hospital Course: The patient has had a protracted course in the hospital. She is a 52-year-old fema le with multiple medical problems including diabetes, hypertension, end-stage renal disease, on hemod ialysis, liver cirrhosis, chronic thrombocytopenia, and anemia, who came in with left calf pain and s welling. The patient did have a large hematoma, which was found on CT without any recent trauma. Th e patient developed blood loss anemia. The patient did have a needle aspiration performed by Dr. Elie garnett, taking out 300 cc of blood. The patient did become hypotensive, had significant amount of bleed ing from that hematoma. The patient was also seen by Dr. Woods for evacuation of the hematoma due to her coagulopathy. She has been difficult to control in terms of her bleeding. She has required 7 units of FFP, platelets, PRBCs, and cryoprecipitate. The patient was seen by greenhouse grower, Dr. Naik . Her thrombocytopenia was likely related to her coagulopathy from her liver cirrhosis. The patient did require multiple transfusions as mentioned. She was also continued on her dialysis. The patien t's wound from her left arm Phi hemodialysis fistula did grow out ESBL. The patient was started on meropenem, and she was placed on isolation. The patient did require wound VAC placement on the le ft arm. No wound VAC was recommended by Surgery on the left lower extremity calf wound due to the ri sk of further bleeding and exacerbating her hematoma. The patient will need skin grafts eventually. Due to her multiple comorbidities and severe illness and comorbidities, she required long-term acute care facility for continued care. The patient was then accepted to [facility] and will be discharg ed. The patient did have a seizure episode shortly after dialysis when she was in her room with a to adrianna-clonic episode. EEG was done. The patient was started on IV Keppra and did not have any further recurrence of the seizure episode. She will need to be on Keppra for a month and need to follow up with Neurology as outpatient. Head CT scan was also negative. Overall, the patient's prognosis is v filippo poor. She does not seem to understand the gravity of her situation and denial of her to the exte nt of her liver disease. The patient was then discharged to LTAC in a stable condition. Activity: Seizure precautions. Medications: As per medication reconciliation list. Finish off the course of meropenem for a total of 14 doses. Followup: Follow up with accepting physician at LTAC upon transfer. Follow up with greenhouse grower, Dr Shana Naik, in 2 to 4 weeks. Follow up with neurologist, Dr. Espinosa, in 4 weeks. Follow up with surge on, Dr. Woods, in 2 weeks. Follow up with sluice tender, Dr. Tyler, in 2 weeks. Return to ER fo r worsening condition. Diet: Diabetic. Activity: Seizure precautions. Physical Examination: General: Awake, alert, and oriented x3. Some mild distress. Ill-appearing female. CV: S1 and S2. Peripheral pulses present. Respiratory: Moving air well bilaterally. Abdomen: Soft, nontender, nondistended. Positive bowel sounds. Extremities: No clubbing or cyanosis. The patient does have lower extremity edema. Skin: Left leg is bandaged with some serosanguineous drainage present on the bandage. Left arm woun d VAC is in place. Neurologic: Nonfocal. Total time spent discharging the patient was 45 minutes. GABRIEL Voice ID: [id number] Report ID: [id number]
--- NOTE | 2018-05-31 13:57 | EEG ---
CHART: [id number] TEST ID#: [id number] DATE OF STUDY: 05/30/2018 THE EEG WAS RECORDED PORTABLE IN THE PATIENTS ROOM ON A 17 CHANNEL MACHINE. ELECTRODES WERE APPLIED IN THE USUAL MANNER USING THE INTERNATIONAL 10-20 SYSTEM. THE WAKING BACKGROUND RHYTHM IN THIS RECORD CONSISTS OF POORLY DEVELOPED AND POORLY ORGANIZED WAVES OF 6-7 HZ., IN A WIDE DISTRIBUTION WHICH ATTENUATE NORMALLY WITH EYE OPENING. LOW-VOLTAGE 15-18 HZ ACTIVITY IS EXPRESSED IN ALL REGIONS. MODERATE 1.5-3 HZ ACTIVITY IS EXPRESSED IN THE FRONTAL REGIONS. THERE ARE NO FOCAL OR LATERALIZING FEATURES. NO EPILEPTIFORM ACTIVITY APPEARS. SLEEP OCCURRED NATURALLY. IN ADDITION NORMAL SLEEP PATTERNS. HYPERVENTILATION WAS NOT PERFORMED. PHOTIC STIMULATION PRODUCED NO DRIVING BILATERALLY. IMPRESSION: THISIS A MILDLY ABNORMAL EEG DUE TO A MILDLY SLOW BACKGROUND. THIS IS A NON-SPECIFIC FINDING CONSISTENT WITH A MILD DIFFUSE DISTURBANCE IN CEREBRAL FUNCTION.
== END 2018-05-30 16:00 | DRG 570 ==
LOC: ER 14:42 → ERHOLD 19:49 → 2ND 21:16 → OBSVTOIN 05-20 16:31 → 3RD-ICU 05-20 16:36
PROVIDERS: ADMIT Internal Medicine; ATTEND Family Medicine
PROC: 30233K1 Transfusion of Nonautologous Frozen Plasma into Peripheral Vein, Percutaneous Approach (ICD-10-PCS; 2018-05-20)
PROC: 30233N1 Transfusion of Nonautologous Red Blood Cells into Peripheral Vein, Percutaneous Approach (ICD-10-PCS; 2018-05-20)
PROC: 30233R1 Transfusion of Nonautologous Platelets into Peripheral Vein, Percutaneous Approach (ICD-10-PCS; 2018-05-20)
PROC: 0H9LXZZ Drainage of Left Lower Leg Skin, External Approach (ICD-10-PCS; 2018-05-20)
PROC: 0H9LXZZ Drainage of Left Lower Leg Skin, External Approach (ICD-10-PCS; 2018-05-20)
PROC: 5A1D70Z Performance of Urinary Filtration, Intermittent, Less than 6 Hours Per Day (ICD-10-PCS; 2018-05-20)
PROC: 0H9LXZZ Drainage of Left Lower Leg Skin, External Approach (ICD-10-PCS; 2018-05-20)
PROC: 2W1BX6Z Compression of Left Upper Arm using Pressure Dressing (ICD-10-PCS; 2018-05-21)
PROC: 5A1D70Z Performance of Urinary Filtration, Intermittent, Less than 6 Hours Per Day (ICD-10-PCS; 2018-05-22)
PROC: 30233M1 Transfusion of Nonautologous Plasma Cryoprecipitate into Peripheral Vein, Percutaneous Approach (ICD-10-PCS; 2018-05-23)
PROC: 0JBP0ZZ Excision of Left Lower Leg Subcutaneous Tissue and Fascia, Open Approach (ICD-10-PCS; principal; 2018-05-23 14:00)
PROC: 5A1D70Z Performance of Urinary Filtration, Intermittent, Less than 6 Hours Per Day (ICD-10-PCS; 2018-05-24)
PROC: 5A1D70Z Performance of Urinary Filtration, Intermittent, Less than 6 Hours Per Day (ICD-10-PCS; 2018-05-26)
PROC: 5A1D70Z Performance of Urinary Filtration, Intermittent, Less than 6 Hours Per Day (ICD-10-PCS; 2018-05-27)
PROC: 5A1D70Z Performance of Urinary Filtration, Intermittent, Less than 6 Hours Per Day (ICD-10-PCS; 2018-05-28)
PROC: 5A1D70Z Performance of Urinary Filtration, Intermittent, Less than 6 Hours Per Day (ICD-10-PCS; 2018-05-29)
DX: S80.12XA Contusion of left lower leg, initial encounter (principal); N18.6 End stage renal disease; D62 Acute posthemorrhagic anemia; D61.818 Other pancytopenia; I13.2 Hypertensive heart and chronic kidney disease with heart failure and with stage 5 chronic kidney disease, or end stage renal disease; I50.32 Chronic diastolic (congestive) heart failure; N25.81 Secondary hyperparathyroidism of renal origin; D68.9 Coagulation defect, unspecified; E11.22 Type 2 diabetes mellitus with diabetic chronic kidney disease; Z99.2 Dependence on renal dialysis; K74.60 Unspecified cirrhosis of liver; D69.6 Thrombocytopenia, unspecified; Z79.4 Long term (current) use of insulin; E03.9 Hypothyroidism, unspecified; K21.9 Gastro-esophageal reflux disease without esophagitis; F41.9 Anxiety disorder, unspecified; F32.9 Major depressive disorder, single episode, unspecified; G89.29 Other chronic pain; M54.9 Dorsalgia, unspecified; E86.1 Hypovolemia; T82.7XXD Infection and inflammatory reaction due to other cardiac and vascular devices, implants and grafts, subsequent encounter; Y81.8 Miscellaneous general- and plastic-surgery devices associated with adverse incidents, not elsewhere classified; E66.9 Obesity, unspecified; Z68.37 Body mass index [BMI] 37.0-37.9, adult; E11.40 Type 2 diabetes mellitus with diabetic neuropathy, unspecified; E11.21 Type 2 diabetes mellitus with diabetic nephropathy; W18.39XA Other fall on same level, initial encounter; Y93.89 Activity, other specified; Y92.121 Bathroom in nursing home as the place of occurrence of the external cause; D23.72 Other benign neoplasm of skin of left lower limb, including hip; D73.2 Chronic congestive splenomegaly; D73.1 Hypersplenism; B18.2 Chronic viral hepatitis C; I95.3 Hypotension of hemodialysis; D63.1 Anemia in chronic kidney disease; Z16.12 Extended spectrum beta lactamase (ESBL) resistance; E87.6 Hypokalemia; B96.20 Unspecified Escherichia coli [E. coli] as the cause of diseases classified elsewhere; E88.09 Other disorders of plasma-protein metabolism, not elsewhere classified; E11.649 Type 2 diabetes mellitus with hypoglycemia without coma; R56.9 Unspecified convulsions; L08.89 Other specified local infections of the skin and subcutaneous tissue
CPT/HCPCS: 36415; 36430; 70450; 71045; 72170; 73700; 80048; 80053; 80069; 80202; 82024; 82140; 82247; 82248; 82533; 82962; 83735; 84100; 84145; 84439; 84443; 85014; 85018; 85025; 85027; 85049; 85384; 85610; 85730; 86850; 86900; 86901; 86927; 87040; 87070; 87077; 87186; 87205; 90935; 95816; 99285; G0257; J0834; J1100; J1170; J1940; J1953; J2310; J2370; J2405; J2597; J2704; J3010; J3370; J3430; J7030; P9012; P9016; P9017; P9035; P9047; P9059; Q4081